=== PATIENT | female | born 1970 | race Caucasian/White ===

== ENCOUNTER → 2016-05-07 | Outpatient (CLI) | payer OTHER ==
--- NOTE | 2016-05-07 13:10 | US ---
EXAMINATION TYPE: US venous doppler duplex LE BI DATE OF EXAM: 05/07/2016 1:01 PM COMPARISON: NONE CLINICAL HISTORY: . Bilateral leg swelling that has since gone down, no h/o dvt SIDE PERFORMED: Bilateral VESSELS IMAGED: External Iliac Vein (EIV) Common Femoral Vein Deep Femoral Vein Greater Saphenous Vein * Femoral Vein Popliteal Vein Small Saphenous Vein * Proximal Calf Veins (* superficial vessels) Right Leg: Appears negative for DVT Left Leg: Appears negative for DVT
== END | disposition home or self-care (01) ==
LOC: RADUSWWP 12:07
PROVIDERS: ATTEND Family Medicine
DX: M79.669 Pain in unspecified lower leg (principal)
CPT/HCPCS: 93965; 93970

== ENCOUNTER → 2016-08-05 | Outpatient (CLI) | payer OTHER ==
--- NOTE | 2016-08-07 09:08 | MM ---
Reason for exam: screening (asymptomatic). Last mammogram was performed 1 year and 8 months ago. History: Patient history of other cancer. Family history of premenopausal breast cancer in maternal aunt at age 36. Benign cyst aspiration of the right breast, 2008. Physical Findings: A clinical breast exam by your physician is recommended on an annual basis and results should be correlated with mammographic findings. MG Screening Mammo w CAD Bilateral CC and MLO view(s) were taken. Prior study comparison: December 20, 2014, bilateral MG screening mammo w CAD. May 24, 2013, bilateral digital screening mammo w/CAD. The breast tissue is heterogeneously dense. This may lower the sensitivity of mammography. Finding: There are typically benign round, diffuse/scattered and grouped calcifications in both breasts. Increased density from priors. New mild skin thickening bilaterally. ASSESSMENT: Benign, BI-RAD 2 RECOMMENDATION: Routine screening mammogram of both breasts in 1 year. Manage patient on a clinical basis. Questionable new CHF. Increased density with mild skin thickening of both breasts, correlate clinically.
== END | disposition home or self-care (01) ==
LOC: RADMAMWWP 14:00
PROVIDERS: ATTEND Obstetrics & Gynecology
DX: Z12.31 Encounter for screening mammogram for malignant neoplasm of breast (principal)

== ENCOUNTER 2017-06-30 10:17 | Emergency (ER) | payer OTHER ==
--- NOTE | 2017-06-30 10:34 | ED ---
Lower Extremity Injury HPI - General Chief Complaint: Extremity Injury, Lower Stated Complaint: fall Time Seen by Provider: 06/30/17 10:25 Source: patient, RN notes reviewed Mode of arrival: wheelchair Limitations: no limitations - History of Present Illness Initial Comments: 46-year-old female presents emergency Department chief complaint of left ankle and left foot pain. Patient states that she tripped down 4 steps denies any head injury no loss conscious. Patient states she only injured her left foot and ankle. She states is swollen is painful to ambulate on. Denies any paresthesias. Patient states she's had a prior fracture to her right ankle and but no prior injuries to her left - Related Data Home Medications Medication Instructions Recorded Confirmed Clopidogrel Bisulfate [Plavix] 75 mg PO DAILY 01/21/15 06/30/17 Enalapril [Vasotec] 5 mg PO DAILY 01/21/15 06/30/17 Ergocalciferol (Vitamin D2) 50,000 unit PO Q14D 01/21/15 06/30/17 [Drisdol] Ferrous Sulfate [Iron (65 MG 325 mg PO DAILY 01/21/15 06/30/17 Elemental)] Furosemide [Lasix] 20 mg PO DAILY 01/21/15 06/30/17 Gabapentin [Neurontin] 400 mg PO BID 01/21/15 06/30/17 Loratadine [Claritin] 10 mg PO DAILY 01/21/15 06/30/17 Zolpidem Tartrate [Ambien] 5 mg PO HS 01/21/15 06/30/17 lamoTRIgine [LaMICtal] 25 mg PO BID 01/21/15 06/30/17 Carvedilol [Coreg] 6.25 mg PO BID 01/22/15 06/30/17 Albuterol Inhaler [Ventolin Hfa 1 - 2 puff INHALATION RT-Q6H PRN 06/30/17 Inhaler] Alogliptin Benzoate [Alogliptin] 6.25 mg PO DAILY 06/30/17 06/30/17 Atorvastatin [Lipitor] 80 mg PO HS 06/30/17 06/30/17 Citalopram Hydrobromide [CeleXA] 20 mg PO DAILY 06/30/17 06/30/17 Cyclobenzaprine [Flexeril] 5 mg PO TID PRN 06/30/17 06/30/17 Ezetimibe [Zetia] 10 mg PO DAILY 06/30/17 06/30/17 Famotidine [Pepcid] 20 mg PO DAILY 06/30/17 06/30/17 Hydrochlorothiazide [Hydrodiuril] 12.5 mg PO HS 06/30/17 06/30/17 Insulin Glargine,Hum.rec.anlog 10 unit SQ DAILY@1400 06/30/17 06/30/17 [Basaglar Kwikpen U-100] Pioglitazone [Actos] 15 mg PO DAILY 06/30/17 06/30/17 Repaglinide [Prandin] 0.5 mg PO AC-BID 06/30/17 06/30/17 Spironolactone [Aldactone] 25 mg PO DAILY 06/30/17 06/30/17 Tiotropium 18 Mcg/Puff [Spiriva] 1 cap INHALATION RT-DAILY 06/30/17 06/30/17 amLODIPine [Norvasc] 5 mg PO DAILY 06/30/17 06/30/17 Allergies Allergy/AdvReac Type Severity Reaction Status Date / Time Penicillins Allergy Rash/Hives Verified 06/30/17 10:46 Review of Systems ROS Statement: Those systems with pertinent positive or pertinent negative responses have been documented in the HPI. ROS Other: All systems not noted in ROS Statement are negative. Past Medical History Past Medical History: CVA/TIA, Diabetes Mellitus, Hypertension, Vascular Disorder Additional Past Medical History / Comment(s): vaginal bleeding for procedure today 01/22/2015 cancelled related to elevated blood sugar,hx of cellulitis History of Any Multi-Drug Resistant Organisms: None Reported Past Surgical History: Bowel Resection, Orthopedic Surgery, Tubal Ligation Additional Past Surgical History / Comment(s): Hx of colostomy and reversal, rotator cuff repair on Left,hx of bifem bypass Past Anesthesia/Blood Transfusion Reactions: No Reported Reaction Past Psychological History: No Psychological Hx Reported Smoking Status: Current every day smoker Past Alcohol Use History: None Reported Past Drug Use History: None Reported - Past Family History Mother Family Medical History: No Reported History Brother(s) Additional Family Medical History / Comment(s): CABG Sister(s) Family Medical History: CVA/TIA General Exam Limitations: no limitations General appearance: alert, in no apparent distress Head exam: Present: atraumatic, normocephalic, normal inspection Neck exam: Present: normal inspection, full ROM. Absent: tenderness Respiratory exam: Present: normal lung sounds bilaterally. Absent: respiratory distress, wheezes, rales, rhonchi, stridor Cardiovascular Exam: Present: regular rate, normal rhythm, normal heart sounds. Absent: systolic murmur, diastolic murmur, rubs, gallop, clicks Extremities exam: Present: other (Left ankle there is moderate swelling noted, tenderness over malleolus, no obvious deformity, there is mild tenderness across second third and fourth metatarsal with nausea deformity neurovascular intact there is no proximal tib-fib tenderness pulses are equal bilaterally) Skin exam: Present: warm, dry, intact, normal color. Absent: rash Course Vital Signs 06/30/17 10:22 Temperature 98.0 F Pulse Rate 70 Respiratory 20 Rate Blood Pressure 167/77 O2 Sat by Pulse 100 Oximetry - Reevaluation(s) Reevaluation #1: 06/30/17 11:16 Patient was offered pain meds on initial exam and declined she did decline after update on results also. Procedures - Orthopedic Splinting/Casting Injury #1 Side: left Lower Extremity Injury Location: short leg, ankle Lower Extremity Immobilizer: posterior splint, synthetic pre-padded splint Other Orthopedic Equipment: crutches Additional Comments: Neurovascular intact before and after procedure Medical Decision Making - Medical Decision Making 46-year-old female was on return for left ankle injury. There appears to be an avulsion fracture. Patient was splinted and follow with orthopedics. Patient was given prescription for crutches. Disposition Clinical Impression: Ankle fracture, left Disposition: HOME SELF-CARE Condition: Stable Instructions: Ankle Fracture (ED) Additional Instructions: Please return to the Emergency Department if symptoms worsen or any other concerns. Referrals: Siva Burnham MD [Primary Care Provider] - 1-2 days Mina Blanca MD [STAFF PHYSICIAN] - 1-2 days Time of Disposition: 11:15
--- NOTE | 2017-06-30 10:48 | XR ---
EXAMINATION TYPE: XR ankle complete LT, XR foot complete LT DATE OF EXAM: 06/30/2017 COMPARISON: NONE HISTORY: Pain TECHNIQUE: 3 views of the left ankle are submitted for evaluation. FINDINGS: Ankle mortise is intact. Lateral soft tissue swelling noted. Tiny ossific density adjacent to the talus or calcaneus on a single view could reflect a small avulsion fracture. Correlate clinica lly with point tenderness. Plantar and dorsal calcaneal spurring noted. IMPRESSION: 1. Tiny ossific density adjacent to the talus or calcaneus on a single view could reflect a small avu lsion fracture. Correlate clinically with point tenderness.
[2017-06-30 11:28] VITALS: BP 175/75; PULSE 74; RESP 16; TEMP 98.3
== END 2017-06-30 11:34 | disposition home or self-care (01) ==
LOC: EC 10:17
DX: S82.892A Other fracture of left lower leg, initial encounter for closed fracture (principal); I10 Essential (primary) hypertension; E11.9 Type 2 diabetes mellitus without complications; I73.9 Peripheral vascular disease, unspecified; F17.200 Nicotine dependence, unspecified, uncomplicated; Z79.02 Long term (current) use of antithrombotics/antiplatelets; Z79.4 Long term (current) use of insulin; Z79.899 Other long term (current) drug therapy; Z88.0 Allergy status to penicillin; Z86.73 Personal history of transient ischemic attack (TIA), and cerebral infarction without residual deficits; W10.9XXA Fall (on) (from) unspecified stairs and steps, initial encounter; Y92.009 Unspecified place in unspecified non-institutional (private) residence as the place of occurrence of the external cause
CPT/HCPCS: 29515; 99283

== ENCOUNTER → 2017-08-25 | Outpatient (CLI) | payer OTHER ==
[2017-08-25 12:23] VITALS: BP 133/73; PULSE 64; TEMP 97.5; BMI 26.7
--- NOTE | 2017-08-25 13:58 | P.HPOB ---
History of Present Illness H&P Date: 08/25/17 Chief Complaint: The patient is here for her routine gynecologic exam and mammogram. This is a 47-year-old with an LMP of 08/18/2017. The patient is status post tubal ligation. She states that has been about 5 years since her last pelvic exam. Her periods had been regular every month but she states they are becoming more frequent and can have 2 periods in a month. She previously saw Dr. Rodriguez who was going to do an endometrial ablation but this was canceled because of uncontrolled diabetes according to the patient. She states her menses are not as heavy as they used to be but they are coming more frequent. She denies hot flashes. She is otherwise without gynecologic complaints. Review of Systems Weight has been stable. She denies respiratory, cardiac, or G.I. problems. 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 She has had 3 vaginal deliveries in one miscarriage. History of Any Multi-Drug Resistant Organisms: None Reported Past Surgical History: Appendectomy, Bowel Resection, Orthopedic Surgery, Tubal Ligation Additional Past Surgical History / Comment(s): Hx of colostomy and reversal, rotator cuff repair on Left,hx of bifem bypass. Colonoscopy 2012 Past Anesthesia/Blood Transfusion Reactions: No Reported Reaction Past Psychological History: No Psychological Hx Reported Smoking Status: Heavy tobacco smoker (1 pack per day) Past Alcohol Use History: None Reported Past Drug Use History: None Reported Additional History: She is and has been with her boyfriend since 2017 and lives with him. She is currently unemployed. - Past Family History Mother Family Medical History: No Reported History, Congestive Heart Failure (CHF), Diabetes Mellitus Brother(s) Additional Family Medical History / Comment(s): CABG Sister(s) Family Medical History: CVA/TIA Additional Family Medical History / Comment(s): Maternal aunt had breast cancer. Medications and Allergies Home Medications Medication Instructions Recorded Confirmed Type Clopidogrel Bisulfate [Plavix] 75 mg PO DAILY 01/21/15 08/25/17 History Enalapril [Vasotec] 5 mg PO DAILY 01/21/15 08/25/17 History Ergocalciferol (Vitamin D2) 50,000 unit PO Q14D 01/21/15 08/25/17 History [Drisdol] Ferrous Sulfate [Iron (65 MG 325 mg PO DAILY 01/21/15 08/25/17 History Elemental)] Furosemide [Lasix] 20 mg PO DAILY 01/21/15 08/25/17 History Gabapentin [Neurontin] 400 mg PO BID 01/21/15 08/25/17 History Loratadine [Claritin] 10 mg PO DAILY 01/21/15 08/25/17 History Zolpidem Tartrate [Ambien] 5 mg PO HS 01/21/15 08/25/17 History lamoTRIgine [LaMICtal] 25 mg PO BID 01/21/15 08/25/17 History Carvedilol [Coreg] 6.25 mg PO BID 01/22/15 08/25/17 History Albuterol Inhaler [Ventolin Hfa 1 - 2 puff INHALATION RT-Q6H PRN 06/30/17 History Inhaler] Alogliptin Benzoate [Alogliptin] 6.25 mg PO DAILY 06/30/17 08/25/17 History Atorvastatin [Lipitor] 80 mg PO HS 06/30/17 08/25/17 History Citalopram Hydrobromide [CeleXA] 20 mg PO DAILY 06/30/17 08/25/17 History Cyclobenzaprine [Flexeril] 5 mg PO TID PRN 06/30/17 08/25/17 History Ezetimibe [Zetia] 10 mg PO DAILY 06/30/17 08/25/17 History Famotidine [Pepcid] 20 mg PO DAILY 06/30/17 08/25/17 History Hydrochlorothiazide [Hydrodiuril] 12.5 mg PO HS 06/30/17 08/25/17 History Insulin Glargine,Hum.rec.anlog 10 unit SQ DAILY@1400 06/30/17 08/25/17 History [Basaglar Kwikpen U-100] Pioglitazone [Actos] 15 mg PO DAILY 06/30/17 08/25/17 History Repaglinide [Prandin] 0.5 mg PO AC-BID PRN 06/30/17 08/25/17 History Spironolactone [Aldactone] 25 mg PO DAILY 06/30/17 08/25/17 History amLODIPine [Norvasc] 5 mg PO DAILY 06/30/17 08/25/17 History Allergies Allergy/AdvReac Type Severity Reaction Status Date / Time Penicillins Allergy Rash/Hives Verified 08/25/17 12:18 Exam - Vital Signs Vital signs: Vital Signs Temp Pulse BP 08/25/17 12:18 97.5 F L 64 133/73 Intake and Output 08/24/17 08/25/17 08/25/17 22:59 06:59 14:59 Other: Weight 70.76 kg Height 5'4", BMI 26.8. This is a well-developed well-nourished white female who is alert and oriented times 3 in no acute distress. HEENT: Within normal limits. NECK: Supple without mass or thyromegaly. CHEST AND LUNGS: mild prolonged expiration, otherwise clear to auscultation. HEART: Regular rate and rhythm. BREASTS: Are without mass or discharge. AXILLARY EXAM: Negative for adenopathy. BACK: Negative for CVA tenderness. ABDOMEN: Soft, nontender, without palpable masses. PELVIC EXAM: external genitalia reveals mild atrophy with a white raised lesion at the posterior aspect of the left labia. This measures approximately 1 x 0.5 x 0.5 cm. The lesion is soft and nontender. The whitish appearance extends just past the base of the raised lesion. Cervix and vagina appear normal with minimal atrophy. There is no unusual discharge. There is no evidence of prolapse. The uterus is midposition, nongravid size and nontender. There are no palpable adnexal masses or tenderness. RECTAL EXAM: negative for mass or tenderness and is negative for occult blood. EXTREMITIES: Nontender. IMPRESSION: 1. 47-year-old premenopausal female with increasing menstrual frequency about every 3 weeks. 2. Suspicious left vulvar lesion. 3. Multiple medical problems. PLAN: 1. Pap smear was performed. 2. Self breast awareness was discussed. 3. Screening mammogram will be done today. 4. The patient will be scheduled for a vulvar biopsy. I have stressed the importance of having this done and the possibility of cancerous or precancerous changes were also discussed. 5. The patient will keep a menstrual calendar and return if menses are more frequently than every 3 weeks. 6. Consider referral to Dr. Rodriguez if greater menstrual problems are if further treatment is needed for the vulvar lesion. 7. She'll return in one year and PRN
--- NOTE | 2017-08-26 09:44 | MM ---
Reason for exam: screening (asymptomatic). Last mammogram was performed 1 year and 1 month ago. History: Patient history of other cancer. Family history of premenopausal breast cancer in maternal aunt at age 36. Benign cyst aspiration of the right breast, 2008. Physical Findings: A clinical breast exam by your physician is recommended on an annual basis and results should be correlated with mammographic findings. MG Screening Mammo w CAD Bilateral CC and MLO view(s) were taken. Prior study comparison: August 05, 2016, bilateral MG screening mammo w CAD. December 20, 2014, bilateral MG screening mammo w CAD. There is a stable upper outer quadrant left mass. Benign calcifications bilaterally. No suspicious abnormality. No significant changes when compared with prior studies. ASSESSMENT: Benign, BI-RAD 2 RECOMMENDATION: Routine screening mammogram of both breasts in 1 year.
== END | disposition home or self-care (01) ==
LOC: WWCWWP 11:12
PROVIDERS: ATTEND Obstetrics & Gynecology
DX: Z12.31 Encounter for screening mammogram for malignant neoplasm of breast (principal)
CPT/HCPCS: 77067

== ENCOUNTER → 2018-06-13 | Outpatient (CLI) | payer OTHER ==
--- NOTE | 2018-06-13 15:28 | XR ---
EXAMINATION TYPE: XR chest 2V DATE OF EXAM: 06/13/2018 COMPARISON: 04/16/2011 INDICATION: Pneumonia, short of breath, cough TECHNIQUE: Frontal and lateral views of the chest are obtained. FINDINGS: The heart size is enlarged. The pulmonary vasculature is normal. Bibasilar infiltrates are present. Minimal bilateral pleural effusions are present.. IMPRESSION: 1. Bibasilar infiltrates and small bilateral pleural effusions. Correlate for bibasilar pneumonia. Fo llow-up is recommended.
== END ==
LOC: RADXRMAIN 12:54
PROVIDERS: ATTEND Family Medicine
DX: J90 Pleural effusion, not elsewhere classified (principal); R91.8 Other nonspecific abnormal finding of lung field
CPT/HCPCS: 71046

== ENCOUNTER 2018-06-18 19:40 | Inpatient (IN) | payer OTHER ==
[2018-06-18] MEDS ORDERED: ALBUTEROL NEBULIZED 2.5 MG/3 ML INHALATION STA (20:04)
[2018-06-18] MEDS ORDERED: IPRATROPIUM-ALBUTEROL 3 ML NEB INHALATION STA (20:04)
[2018-06-18] MEDS ORDERED: DEXAMETHASONE SOD PHOSPHATE 10 MG/ML 1 ML VIAL IV STA (20:04)
--- NOTE | 2018-06-18 20:07 | ED ---
General Adult HPI - General Chief complaint: Shortness of Breath Stated complaint: ALEENA Time Seen by Provider: 06/18/18 19:53 Source: patient, RN notes reviewed, old records reviewed Mode of arrival: ambulatory Limitations: no limitations - History of Present Illness Initial comments: 47-year-old female history of COPD presents with 5 days of worsening cough and dyspnea. She was diagnosed with pneumonia and started on antibiotic 4 days ago. She's had worsening cough which is nonproductive as well as right-sided chest pain worse with cough. She states this is typical of her COPD exacerbation. Denies fever or chills. No central chest pain. She does report left leg swelling which is chronic. No history DVT or PE. She does follow with pulmonology on a regular basis. She is currently smoking. - Related Data Home Medications Medication Instructions Recorded Confirmed Clopidogrel Bisulfate [Plavix] 75 mg PO DAILY 01/21/15 06/18/18 Ergocalciferol (Vitamin D2) 50,000 unit PO Q14D 01/21/15 06/18/18 [Drisdol] Ferrous Sulfate [Iron (65 MG 325 mg PO DAILY 01/21/15 06/18/18 Elemental)] Loratadine [Claritin] 10 mg PO DAILY 01/21/15 06/18/18 lamoTRIgine [LaMICtal] 25 mg PO BID 01/21/15 06/18/18 Carvedilol [Coreg] 12.5 mg PO BID 01/22/15 06/18/18 Albuterol Inhaler [Ventolin Hfa 1 - 2 puff INHALATION RT-Q6H PRN 06/30/17 Inhaler] Alogliptin Benzoate [Alogliptin] 6.25 mg PO DAILY 06/30/17 06/18/18 Atorvastatin [Lipitor] 80 mg PO HS 06/30/17 06/18/18 Citalopram Hydrobromide [CeleXA] 20 mg PO DAILY 06/30/17 06/18/18 Hydrochlorothiazide [Hydrodiuril] 12.5 mg PO BID 06/30/17 06/18/18 Insulin Glargine,Hum.rec.anlog 14 unit SQ DAILY@1400 06/30/17 06/18/18 [Justin Ash U-100] Spironolactone [Aldactone] 25 mg PO DAILY 06/30/17 06/18/18 Aspirin EC [Ecotrin Low Dose] 81 mg PO DAILY 06/18/18 06/18/18 Famotidine [Pepcid] 40 mg PO DAILY 06/18/18 06/18/18 Ipratropium-Albuterol Nebulize 3 ml INHALATION RT-BID 06/18/18 06/18/18 [Duoneb 0.5 mg-3 mg/3 ml Soln] Tiotropium [place] [Spiriva 2 spray INHALATION RT-DAILY 06/18/18 06/18/18 Respimat] amLODIPine [Norvasc] 10 mg PO DAILY 06/18/18 06/18/18 Allergies Allergy/AdvReac Type Severity Reaction Status Date / Time Penicillins Allergy Rash/Hives Verified 06/18/18 20:54 Review of Systems ROS Statement: Those systems with pertinent positive or pertinent negative responses have been documented in the HPI. ROS Other: All systems not noted in ROS Statement are negative. Past Medical History Past Medical History: COPD, CVA/TIA, Diabetes Mellitus, Hyperlipidemia, Hypertension, Renal Disease, Vascular Disorder Additional Past Medical History / Comment(s): Leukemia. History of Any Multi-Drug Resistant Organisms: None Reported Past Surgical History: Appendectomy, Bowel Resection, Orthopedic Surgery, Tubal Ligation Additional Past Surgical History / Comment(s): Hx of colostomy and reversal, rotator cuff repair on Left,hx of bifem bypass. Colonoscopy 2012 Past Anesthesia/Blood Transfusion Reactions: No Reported Reaction Past Psychological History: Anxiety, Depression Smoking Status: Heavy tobacco smoker Past Alcohol Use History: None Reported Past Drug Use History: Marijuana - Past Family History Mother Family Medical History: No Reported History, Congestive Heart Failure (CHF), Diabetes Mellitus Brother(s) Additional Family Medical History / Comment(s): CABG Sister(s) Family Medical History: CVA/TIA Additional Family Medical History / Comment(s): Maternal aunt had breast cancer. General Exam Limitations: no limitations General appearance: alert, in no apparent distress Head exam: Present: atraumatic, normocephalic Eye exam: Present: normal appearance, PERRL, EOMI ENT exam: Present: normal exam Respiratory exam: Present: respiratory distress, wheezes, decreased breath sounds Cardiovascular Exam: Present: regular rate, normal rhythm GI/Abdominal exam: Present: soft. Absent: distended, tenderness, guarding Extremities exam: Present: pedal edema (edema worse on the left) Neurological exam: Present: alert, oriented X3 Psychiatric exam: Present: normal affect, normal mood Skin exam: Present: warm, dry, intact. Absent: cyanosis, diaphoretic Course Vital Signs 06/18/18 06/18/18 06/18/18 19:47 20:31 20:50 Temperature 98.5 F Pulse Rate 105 H 80 82 Respiratory 20 Rate Blood Pressure 172/75 O2 Sat by Pulse 92 L Oximetry EKG Findings - EKG Comments: EKG Findings:: EKG: Normal sinus rhythm, low voltage QRS, ventricular rate of 98 , MS interval 172, QRS duration 84, QTC 457 T-wave inversion in V6. Medical Decision Making - Medical Decision Making 47-year-old female history of COPD, currently smoking, history of chronic kidney disease, the following nephrology presenting with 3 days of worsening cough and dyspnea. Patient appears fluid overloaded with bilateral rales and wheezing on auscultation. Chest x-ray obtained, does show concern for bilateral infiltrate and pulmonary edema. Patient has normal white blood cell count 9.3, hemoglobin is 8.9 with no baseline for comparison. Creatinine 1.99 most recent in the system is 1.2, patient does report stage IV chronic kidney disease. Troponin negative, BNP significantly elevated at 6890 consistent with fluid overload. Influenza negative. Patient given steroids, albuterol, Atrovent, Lasix, and Levaquin in the emergency department. Will be admitted for further treatment and evaluation. Case discussed with Dr. Costa, we will admit. Diagnosis: COPD, fluid overload, pneumonia failed outpatient treatment - Lab Data Result diagrams: 06/18/18 20:06 06/18/18 20:06 Lab Results 06/18/18 06/18/18 06/18/18 Range/Units 20:06 20:06 20:06 WBC 9.3 (3.8-10.6) k/uL RBC 2.80 L (3.80-5.40) m/uL Hgb 8.9 L (11.4-16.0) gm/dL Hct 26.9 L (34.0-46.0) % MCV 95.9 (80.0-100.0) fL MCH 31.8 (25.0-35.0) pg MCHC 33.2 (31.0-37.0) g/dL RDW 14.6 (11.5-15.5) % Plt Count 279 (150-450) k/uL Neutrophils % 82 % Lymphocytes % 9 % Monocytes % 5 % Eosinophils % 4 % Basophils % 1 % Neutrophils # 7.6 (1.3-7.7) k/uL Lymphocytes # 0.8 L (1.0-4.8) k/uL Monocytes # 0.5 (0-1.0) k/uL Eosinophils # 0.3 (0-0.7) k/uL Basophils # 0.1 (0-0.2) k/uL PT (9.0-12.0) sec INR (<1.2) APTT (22.0-30.0) sec Sodium 138 (137-145) mmol/L Potassium 5.3 H (3.5-5.1) mmol/L Chloride 114 H (98-107) mmol/L Carbon Dioxide 18 L (22-30) mmol/L Anion Gap 6 mmol/L BUN 22 H (7-17) mg/dL Creatinine 1.99 H (0.52-1.04) mg/dL Est GFR (CKD-EPI)AfAm 34 (>60 ml/min/1.73 sqM) Est GFR (CKD-EPI)NonAf 29 (>60 ml/min/1.73 sqM) Glucose 302 H (74-99) mg/dL Plasma Lactic Acid Tres (0.7-2.0) mmol/L Calcium 8.4 (8.4-10.2) mg/dL Magnesium 2.0 (1.6-2.3) mg/dL Total Bilirubin 0.5 (0.2-1.3) mg/dL AST 17 (14-36) U/L ALT 37 (9-52) U/L Alkaline Phosphatase 112 (38-126) U/L Total Creatine Kinase 63 (30-135) U/L CK-MB (CK-2) 0.9 (0.0-2.4) ng/mL CK-MB (CK-2) Rel Index 1.4 Troponin I <0.012 (0.000-0.034) ng/mL NT-Pro-B Natriuret Pep pg/mL Total Protein 5.7 L (6.3-8.2) g/dL Albumin 3.1 L (3.5-5.0) g/dL Influenza Type A RNA (Not Detectd) Influenza Type B (PCR) (Not Detectd) 06/18/18 06/18/18 06/18/18 Range/Units 20:06 20:06 20:06 WBC (3.8-10.6) k/uL RBC (3.80-5.40) m/uL Hgb (11.4-16.0) gm/dL Hct (34.0-46.0) % MCV (80.0-100.0) fL MCH (25.0-35.0) pg MCHC (31.0-37.0) g/dL RDW (11.5-15.5) % Plt Count (150-450) k/uL Neutrophils % % Lymphocytes % % Monocytes % % Eosinophils % % Basophils % % Neutrophils # (1.3-7.7) k/uL Lymphocytes # (1.0-4.8) k/uL Monocytes # (0-1.0) k/uL Eosinophils # (0-0.7) k/uL Basophils # (0-0.2) k/uL PT 10.7 (9.0-12.0) sec INR 1.0 (<1.2) APTT 25.4 (22.0-30.0) sec Sodium (137-145) mmol/L Potassium (3.5-5.1) mmol/L Chloride (98-107) mmol/L Carbon Dioxide (22-30) mmol/L Anion Gap mmol/L BUN (7-17) mg/dL Creatinine (0.52-1.04) mg/dL Est GFR (CKD-EPI)AfAm (>60 ml/min/1.73 sqM) Est GFR (CKD-EPI)NonAf (>60 ml/min/1.73 sqM) Glucose (74-99) mg/dL Plasma Lactic Acid Tres 1.2 (0.7-2.0) mmol/L Calcium (8.4-10.2) mg/dL Magnesium (1.6-2.3) mg/dL Total Bilirubin (0.2-1.3) mg/dL AST (14-36) U/L ALT (9-52) U/L Alkaline Phosphatase (38-126) U/L Total Creatine Kinase (30-135) U/L CK-MB (CK-2) (0.0-2.4) ng/mL CK-MB (CK-2) Rel Index Troponin I (0.000-0.034) ng/mL NT-Pro-B Natriuret Pep 6890 pg/mL Total Protein (6.3-8.2) g/dL Albumin (3.5-5.0) g/dL Influenza Type A RNA (Not Detectd) Influenza Type B (PCR) (Not Detectd) 06/18/18 Range/Units 20:14 WBC (3.8-10.6) k/uL RBC (3.80-5.40) m/uL Hgb (11.4-16.0) gm/dL Hct (34.0-46.0) % MCV (80.0-100.0) fL MCH (25.0-35.0) pg MCHC (31.0-37.0) g/dL RDW (11.5-15.5) % Plt Count (150-450) k/uL Neutrophils % % Lymphocytes % % Monocytes % % Eosinophils % % Basophils % % Neutrophils # (1.3-7.7) k/uL Lymphocytes # (1.0-4.8) k/uL Monocytes # (0-1.0) k/uL Eosinophils # (0-0.7) k/uL Basophils # (0-0.2) k/uL PT (9.0-12.0) sec INR (<1.2) APTT (22.0-30.0) sec Sodium (137-145) mmol/L Potassium (3.5-5.1) mmol/L Chloride (98-107) mmol/L Carbon Dioxide (22-30) mmol/L Anion Gap mmol/L BUN (7-17) mg/dL Creatinine (0.52-1.04) mg/dL Est GFR (CKD-EPI)AfAm (>60 ml/min/1.73 sqM) Est GFR (CKD-EPI)NonAf (>60 ml/min/1.73 sqM) Glucose (74-99) mg/dL Plasma Lactic Acid Tres (0.7-2.0) mmol/L Calcium (8.4-10.2) mg/dL Magnesium (1.6-2.3) mg/dL Total Bilirubin (0.2-1.3) mg/dL AST (14-36) U/L ALT (9-52) U/L Alkaline Phosphatase (38-126) U/L Total Creatine Kinase (30-135) U/L CK-MB (CK-2) (0.0-2.4) ng/mL CK-MB (CK-2) Rel Index Troponin I (0.000-0.034) ng/mL NT-Pro-B Natriuret Pep pg/mL Total Protein (6.3-8.2) g/dL Albumin (3.5-5.0) g/dL Influenza Type A RNA Not Detected (Not Detectd) Influenza Type B (PCR) Not Detected (Not Detectd) Disposition Clinical Impression: Acute exacerbation of chronic obstructive airways disease, Fluid overload, Pneumonia Disposition: ADMITTED IP TO THIS [facility] Condition: Stable Is patient prescribed a controlled substance at d/c from ED?: No Referrals: Tamika Pratt MD [Primary Care Provider] - 1-2 days Decision to Admit Reason: Admit from EC Decision Date: 06/18/18 Decision Time: 21:58
[2018-06-18 20:27] LABS: Basophils # (A) 0.1 k/uL (0-0.2); Basophils % (A) 1 %; Eosinophils # (A) 0.3 k/uL (0-0.7); Eosinophils % (A) 4 %; HCT 26.9 % (34.0-46.0); HGB 8.9 gm/dL (11.4-16.0); Lymphocytes # (A) 0.8 k/uL (1.0-4.8); Lymphocytes % (A) 9 %; MCH 31.8 pg (25.0-35.0); MCHC 33.2 g/dL (31.0-37.0); MCV 95.9 fL (80.0-100.0); Mean Platelet Volume 8.2; Monocytes # (A) 0.5 k/uL (0-1.0); Monocytes % (A) 5 %; Neutrophils # (A) 7.6 k/uL (1.3-7.7); Neutrophils % (A) 82 %; Platelet Count 279 k/uL (150-450); RDW 14.6 % (11.5-15.5); WBC 9.3 k/uL (3.8-10.6)
[2018-06-18 20:35] LABS: Partial Thromboplastin Time 25.4 sec (22.0-30.0); Prothrombin Time 10.7 sec (9.0-12.0)
[2018-06-18 20:36] LABS: Albumin 3.1 g/dL (3.5-5.0); Calcium 8.4 mg/dL (8.4-10.2); Potassium 5.3 mmol/L (3.5-5.1); Total Bilirubin 0.5 mg/dL (0.2-1.3); Total Protein 5.7 g/dL (6.3-8.2)
[2018-06-18 20:45] LABS: Creatine Kinase 63 U/L (30-135)
[2018-06-18 20:58] LABS: Creatine Kinase MB 0.9 ng/mL (0.0-2.4); Troponin I <0.012 ng/mL (0.000-0.034)
--- NOTE | 2018-06-18 21:04 | XR ---
EXAMINATION TYPE: XR chest 2V DATE OF EXAM: 06/18/2018 COMPARISON: 06/13/2018 HISTORY: Short of breath TECHNIQUE: Frontal and lateral views of the chest are obtained. FINDINGS: There is blunting of the costophrenic angles. There is pulmonary congestion. Heart size is normal. There is some infiltrate in both lower lobes. There are chest leads. IMPRESSION: Pleural fluid with basilar pulmonary infiltrates and atelectasis. This is slightly worse than last exam. Normal heart. Heart failure is possible...
[2018-06-18] MEDS ORDERED: LEVOFLOXACIN 500MG-D5W PMX 500 MG in DEXTROSE/WATER 1 100ML.BAG IVPB STA (21:18)
[2018-06-18] MEDS ORDERED: FUROSEMIDE 10 MG/ML 4 ML VIAL IV STA (21:19)
--- NOTE | 2018-06-18 21:36 | US ---
EXAMINATION TYPE: US venous doppler duplex LE LT DATE OF EXAM: 06/18/2018 9:27 PM COMPARISON: CLINICAL HISTORY: Pain. left leg swelling. No redness. On plavix and aspirin. No hx of blood clots. Shortness of breath. SIDE PERFORMED: Left TECHNIQUE: The lower extremity deep venous system is examined utilizing real time linear array sonog hillary with graded compression, doppler sonography and color-flow sonography. VESSELS IMAGED: External Iliac Vein (EIV) Common Femoral Vein Deep Femoral Vein Greater Saphenous Vein * Femoral Vein Popliteal Vein Small Saphenous Vein * Proximal Calf Veins (* superficial vessels) Left Leg: Negative for DVT IMPRESSION: No evidence of deep venous thrombosis in the left leg.
[2018-06-18] MEDS ORDERED: IPRATROPIUM-ALBUTEROL 3 ML NEB INHALATION PRN (21:53)
[2018-06-18] MEDS ORDERED: MORPHINE SULFATE 4 MG/0.8 ML SYRINGE (INJ) IVP STA (21:55)
[2018-06-18] MEDS ORDERED: MORPHINE SULFATE 4 MG/ML SYRINGE IVP STA (22:01)
[2018-06-18] MEDS ORDERED: traMADol 50 MG TAB PO STA (22:47)
[2018-06-19 01:07] LABS: Glucose,Whole Blood 356 mg/dL (75-99)
[2018-06-19] MEDS ORDERED: LEVOFLOXACIN 500 MG TAB PO SCH (04:15)
--- NOTE | 2018-06-19 04:16 | P.HPIM ---
History of Present Illness H&P Date: 06/19/18 Patient is a 47-year-old female with a PMH of COPD, active smoker, CHF, hypertension, diabetes mellitus, hyperlipidemia, and history of CVA presented to the ED for gradually worsening shortness of breath. Shortness of breath had worsened over the past 2 or 3 days, with orthopnea, PND, wheezing, chills, and lower extremity edema. 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 She otherwise denied fevers, nausea, vomiting, diarrhea, abdominal pain, recent travel, calf pain, or sick contacts. In the ED, the patient underwent a copperheads of workup, with hemoglobin 8.9, potassium 5.3, BUN 22, creatinine 1.99, BNP 6890, and troponin less than 0.012. Chest x-ray revealed pleural fluid with basilar pulmonary infiltrate. Lower extremity duplex was negative for DVT. The patient was thereby admitted to the medicine service for multifactorial shortness of breath. Review of Systems Pertinent positives and negatives as discussed in HPI, a complete review of systems was performed and all other systems are negative. Past Medical History Past Medical History: COPD, CVA/TIA, Diabetes Mellitus, Hyperlipidemia, Hypertension, Renal Disease, Vascular Disorder Additional Past Medical History / Comment(s): Leukemia. History of Any Multi-Drug Resistant Organisms: None Reported Past Surgical History: Appendectomy, Bowel Resection, Orthopedic Surgery, Tubal Ligation Additional Past Surgical History / Comment(s): Hx of colostomy and reversal, rotator cuff repair on Left,hx of bifem bypass. Colonoscopy 2012 Past Anesthesia/Blood Transfusion Reactions: No Reported Reaction Past Psychological History: Anxiety, Depression Smoking Status: Heavy tobacco smoker Past Alcohol Use History: None Reported Past Drug Use History: Marijuana - Past Family History Mother Family Medical History: No Reported History, Congestive Heart Failure (CHF), Diabetes Mellitus Brother(s) Additional Family Medical History / Comment(s): CABG Sister(s) Family Medical History: CVA/TIA Additional Family Medical History / Comment(s): Maternal aunt had breast cancer. Medications and Allergies Home Medications Medication Instructions Recorded Confirmed Type Clopidogrel Bisulfate [Plavix] 75 mg PO DAILY 01/21/15 06/18/18 History Ergocalciferol (Vitamin D2) 50,000 unit PO Q14D 01/21/15 06/18/18 History [Drisdol] Ferrous Sulfate [Iron (65 MG 325 mg PO DAILY 01/21/15 06/18/18 History Elemental)] Loratadine [Claritin] 10 mg PO DAILY 01/21/15 06/18/18 History lamoTRIgine [LaMICtal] 25 mg PO BID 01/21/15 06/18/18 History Carvedilol [Coreg] 12.5 mg PO BID 01/22/15 06/18/18 History Albuterol Inhaler [Ventolin Hfa 1 - 2 puff INHALATION RT-Q6H PRN 06/30/17 History Inhaler] Alogliptin Benzoate [Alogliptin] 6.25 mg PO DAILY 06/30/17 06/18/18 History Atorvastatin [Lipitor] 80 mg PO HS 06/30/17 06/18/18 History Citalopram Hydrobromide [CeleXA] 20 mg PO DAILY 06/30/17 06/18/18 History Hydrochlorothiazide [Hydrodiuril] 12.5 mg PO BID 06/30/17 06/18/18 History Insulin Glargine,Hum.rec.anlog 14 unit SQ DAILY@1400 06/30/17 06/18/18 History [Mak[place] Alinapen U-100] Spironolactone [Aldactone] 25 mg PO DAILY 06/30/17 06/18/18 History Aspirin EC [Ecotrin Low Dose] 81 mg PO DAILY 06/18/18 06/18/18 History Famotidine [Pepcid] 40 mg PO DAILY 06/18/18 06/18/18 History Ipratropium-Albuterol Nebulize 3 ml INHALATION RT-BID 06/18/18 06/18/18 History [Duoneb 0.5 mg-3 mg/3 ml Soln] Tiotropium [place] [Spiriva 2 spray INHALATION RT-DAILY 06/18/18 06/18/18 History Respimat] amLODIPine [Norvasc] 10 mg PO DAILY 06/18/18 06/18/18 History Azithromycin [Zithromax] 500 mg PO DAILY 06/19/18 06/19/18 History Allergies Allergy/AdvReac Type Severity Reaction Status Date / Time bee venom protein (honey bee) Allergy Rash/Hives Verified 06/19/18 00:17 Penicillins Allergy Rash/Hives Verified 06/18/18 20:54 Physical Exam Vitals: Vital Signs Temp Pulse Pulse Resp BP BP Pulse Ox 06/18/18 23:55 98.3 F 90 18 110/66 96 06/18/18 23:30 78 13 100/69 95 06/18/18 23:00 80 17 106/72 95 06/18/18 22:00 80 20 103/71 98 06/18/18 21:00 80 21 103/73 97 06/18/18 20:50 82 06/18/18 20:31 80 06/18/18 20:30 82 20 103/66 97 06/18/18 19:47 98.5 F 105 H 20 172/75 92 L Intake and Output 06/18/18 06/18/18 06/19/18 14:59 22:59 06:59 Other: Weight 70.307 kg General: non toxic, no distress, appears older than age, normal weight Derm: no unusual rashes/lesions no unusual ecchymoses, warm, dry Head: atraumatic, normocephalic, symmetric Eyes: EOMI, no lid lag, anicteric sclera, pupils equal round reactive to light ENT: Nose and ears atraumatic, no thrush, no pharyngeal erythema Neck: No thyromegaly, no cervical lymphadenopathy, trachea midline, supple Mouth: no lip lesion, mucus membranes moist Cardiovascular: S1S2 reg, no murmur, positive posterior tibial pulse bilateral, 1+ LE edema chavez, capillary refill less than 2 seconds Lungs: Bibasilar rales, poor air entry bilaterally, scattered rhonchi, no accessory muscle use Abdominal: soft, nontender to palpation, no guarding, no appreciable organomegaly, normal bowel sounds Ext: no gross muscle atrophy, muscle strength 5 out of 5 in all 4 extremities grossly, no contractures, Neuro: CN II-XI grossly intact, light touch intact all 4 extremities, finger to nose within normal limits, Psych: Alert, oriented, appropriate affect Results CBC & Chem 7: 06/18/18 20:06 06/18/18 20:06 Labs: Abnormal Lab Results - Last 24 Hours (Table) 02/16/19 02/16/19 02/17/19 Range/Units 20:06 20:06 01:04 RBC 2.80 L (3.80-5.40) m/uL Hgb 8.9 L (11.4-16.0) gm/dL Hct 26.9 L (34.0-46.0) % Lymphocytes # 0.8 L (1.0-4.8) k/uL Potassium 5.3 H (3.5-5.1) mmol/L Chloride 114 H (98-107) mmol/L Carbon Dioxide 18 L (22-30) mmol/L BUN 22 H (7-17) mg/dL Creatinine 1.99 H (0.52-1.04) mg/dL Glucose 302 H (74-99) mg/dL POC Glucose (mg/dL) 356 H (75-99) mg/dL Total Protein 5.7 L (6.3-8.2) g/dL Albumin 3.1 L (3.5-5.0) g/dL Thrombosis Risk Factor Assmnt - Choose All That Apply Any of the Below Risk Factors Present?: Yes Each Factor Represents 1 point: Abnormal pulmonary function (COPD), Age 41-60 years Other Risk Factors: No Other congenital or acquired thrombophilia - If yes, enter type in comment: No Thrombosis Risk Factor Assessment Total Risk Factor Score: 2 Thrombosis Risk Factor Assessment Level: Low Risk Assessment and Plan Plan: Shortness of breath, multifactorial, secondary to acute COPD and CHF exacerbations, along with community acquired pneumonia -Continue with Lasix 40 mg IV every 12 hourly -Cardiology consult -Cardiac monitoring -Echocardiogram -Continue with Solu-Medrol 60 mg every 6 hourly -Continue with DuoNeb's -Levaquin NED on CKD -Monitor BMP -Avoid nephrotoxic agents Hyperkalemia -Administer Kayexalate and monitor DM -JOSE MANUEL with FS HTN; HLD -Will resume home meds upon confirmation DVT//GI prophylaxis -Heparin -Protonix The patient is admitted with an anticipated greater than 2 midnight stay for evaluation of SOB CODE STATUS:Full Code Discussed with: Patient Anticipated discharge date: 06/21/[address]: Home A total of 60 minutes was spent on the care of this complex patient more than 50 % of the time was spent in counseling and care coordination.
[2018-06-19] MEDS: methylPREDNISolone SOD SUCCI 125 MG/2 ML VIAL IV SCH ×3 (04:39→12:29)
[2018-06-19] MEDS: SODIUM POLYSTYRENE SULFONATE 15 GM/60 ML BOTTLE PO STA ×2 (06:35→06:46)
[2018-06-19 07:25] LABS: Glucose,Whole Blood 488 mg/dL (75-99)
[2018-06-19] MEDS: IPRATROPIUM-ALBUTEROL 3 ML NEB INHALATION SCH ×4 (07:47→19:39)
[2018-06-19] MEDS: PANTOPRAZOLE 40 MG TABLET PO SCH (08:04)
[2018-06-19] MEDS: HEPARIN SODIUM,PORCINE 5,000 UNIT/ML 1 ML VIAL SQ SCH ×3 (08:04→23:26)
[2018-06-19] MEDS: INSULIN ASPART (NovoLOG) 100 UNIT/ML VIAL SQ SCH ×4 (08:04→21:50)
[2018-06-19] MEDS ORDERED: FUROSEMIDE 10 MG/ML 4 ML VIAL IV SCH ×2 (09:00→21:00)
[2018-06-19 10:04] LABS: HCT 27.3 % (34.0-46.0); HGB 8.6 gm/dL (11.4-16.0); Hypochromasia Slight; MCH 31.5 pg (25.0-35.0); MCHC 31.5 g/dL (31.0-37.0); Macrocytosis Slight; Mean Platelet Volume 8.3; Platelet Count 290 k/uL (150-450); RBC 2.73 m/uL (3.80-5.40); RDW 14.5 % (11.5-15.5)
[2018-06-19 10:17] LABS: Calcium 8.2 mg/dL (8.4-10.2)
[2018-06-19 12:04] LABS: Glucose,Whole Blood 465 mg/dL (75-99)
[2018-06-19] MEDS ORDERED: INSULIN ASPART (NovoLOG) 100 UNIT/ML VIAL SQ ONE ×2 (12:06→17:38)
[2018-06-19] MEDS: NICOTINE 21MG/24HR PATCH TRANSDERM SCH (12:28)
[2018-06-19] MEDS: INSULIN DETEMIR (LEVEMIR) 100 UNIT/ML SYR SQ SCH (12:33)
--- NOTE | 2018-06-19 14:30 | P.PN ---
Subjective Progress Note Date: 06/19/18 Principal diagnosis: Shortness of breath Patient is a 47-year-old female with a past medical history of COPD, active tobacco abuse, congestive heart failure, hypertension, diabetes, dyslipidemia, and prior stroke who presented to the emergency department for gradual worsening shortness of breath. Her shortness of breath had been increasing for the last 2 weeks. She has been following with nephrology for worsening creatinine. They apparently decreased her Lasix and increase her hydrochlorothiazide dose. Since that point in time her edema had been increasing. In the emergency department she underwent an extensive evaluation. On initial evaluation she was hypertensive with a blood pressure 172/75. It improved with treatment of her shortness of breath but without specific intervention. Initial laboratory analysis showed a hemoglobin 8.9, potassium 5.3, carbon dioxide of 18, P1 22, and creatinine 1.99. Her blood sugar was elevated at 302. Chest x-ray showed basilar pulmonary infiltrate and lower extremity duplex was negative for left lower extremity DVT. She was started on diuretics and bronchodilators. She was admitted for further monitoring. Her blood sugar became elevated as her long-acting insulin had initially been held and she was started on steroids. By the morning after admission her breathing had improved significantly however her creatinine raised to 2.22. Patient seen and examined at bedside with family present. She states that her breathing is much improved today, she does have a slight cough which is nonproductive. She is not having any wheezing. She thinks that her edema is slightly worse than normal but has improved somewhat yesterday. She tells me she is seeing the nurse practitioner Dr. Montelongo's office has been adjusting her medications recently. She denies any nausea, vomiting, or diarrhea. Objective - Vital Signs Vital signs: Vital Signs Temp 98.4 F 06/19/18 06:07 Pulse 91 06/19/18 12:16 Resp 18 06/19/18 08:00 BP 137/63 06/19/18 06:07 Pulse Ox 98 06/19/18 07:49 Intake & Output 06/18/18 06/19/18 06/19/18 18:59 06:59 18:59 Weight 70.307 kg Other: Voiding Method Toilet # Voids 3 - Exam General: ill Appearing, no distress, appears older than stated age Derm: warm, dry Head: atraumatic, normocephalic, symmetric Eyes: EOMI, no lid lag, anicteric sclera Mouth: no lip lesion, mucus membranes moist Cardiovascular: S1S2 reg, no murmur, positive posterior tibial pulse bilateral, Lungs: decresed bs bilateral, no rhonchi, no rales , no accessory muscle use Abdominal: soft, nontender to palpation, no guarding, no appreciable organomegaly Ext: no gross muscle atrophy, trace edema right foot, 1+ edema left foot, no contractures Neuro: CN II-XI grossly intact, no focal neuro deficits Psych: Alert, oriented, appropriate affect - Labs CBC & Chem 7: 06/19/18 09:42 06/19/18 09:42 Labs: Abnormal Lab Results - Last 24 Hours (Table) 06/18/18 06/18/18 06/19/18 Range/Units 20:06 20:06 01:04 WBC (3.8-10.6) k/uL RBC 2.80 L (3.80-5.40) m/uL Hgb 8.9 L (11.4-16.0) gm/dL Hct 26.9 L (34.0-46.0) % Lymphocytes # 0.8 L (1.0-4.8) k/uL Sodium (137-145) mmol/L Potassium 5.3 H (3.5-5.1) mmol/L Chloride 114 H (98-107) mmol/L Carbon Dioxide 18 L (22-30) mmol/L BUN 22 H (7-17) mg/dL Creatinine 1.99 H (0.52-1.04) mg/dL Glucose 302 H (74-99) mg/dL POC Glucose (mg/dL) 356 H (75-99) mg/dL Calcium (8.4-10.2) mg/dL Total Protein 5.7 L (6.3-8.2) g/dL Albumin 3.1 L (3.5-5.0) g/dL 06/19/18 06/19/18 06/19/18 Range/Units 07:03 09:42 09:42 WBC 15.0 H (3.8-10.6) k/uL RBC 2.73 L (3.80-5.40) m/uL Hgb 8.6 L (11.4-16.0) gm/dL Hct 27.3 L (34.0-46.0) % Lymphocytes # (1.0-4.8) k/uL Sodium 135 L (137-145) mmol/L Potassium (3.5-5.1) mmol/L Chloride (98-107) mmol/L Carbon Dioxide 18 L (22-30) mmol/L BUN 25 H (7-17) mg/dL Creatinine 2.22 H (0.52-1.04) mg/dL Glucose 446 H (74-99) mg/dL POC Glucose (mg/dL) 488 H (75-99) mg/dL Calcium 8.2 L (8.4-10.2) mg/dL Total Protein (6.3-8.2) g/dL Albumin (3.5-5.0) g/dL 06/19/18 Range/Units 11:47 WBC (3.8-10.6) k/uL RBC (3.80-5.40) m/uL Hgb (11.4-16.0) gm/dL Hct (34.0-46.0) % Lymphocytes # (1.0-4.8) k/uL Sodium (137-145) mmol/L Potassium (3.5-5.1) mmol/L Chloride (98-107) mmol/L Carbon Dioxide (22-30) mmol/L BUN (7-17) mg/dL Creatinine (0.52-1.04) mg/dL Glucose (74-99) mg/dL POC Glucose (mg/dL) 465 H (75-99) mg/dL Calcium (8.4-10.2) mg/dL Total Protein (6.3-8.2) g/dL Albumin (3.5-5.0) g/dL Assessment and Plan Assessment: Acute exaerbation of COPD with acute bronchitis - levaquin - change steroids to prednisone - bronchodilators - pum hygeine Acute fluid overload - check echo, fluid restriction - stop lasix and aldactone with increased Cr NED on CKD - consult nephro - hold lasix and aldactone - fluid restriction - avoid additional nephrotoxic agents - follow Cr in AM DM 2 with hyperglycemia - resume long acting insulin, novolo 20 unit now then continue SSI - Follow BS - A1C pending HTN, controlled - resume norvasc - follow BP Tobacco ause - cessation - nicotine replacement HLD - statin PAD - plavix and statin Hyperkalemia, resolved DVT prophylaxis: Heparin Discussed with: Patient, family, nursing Anticipated discharge: 2-[address]: home A total of [35] minutes was spent on the care of this complex patient more than 50% of the time was spent in counseling and care coordination.
[2018-06-19] MEDS: hydrALAZINE HCL 25 MG TAB PO SCH ×2 (16:37→21:50)
[2018-06-19] MEDS: ACETAMINOPHEN TAB 325 MG TAB PO PRN (16:56)
[2018-06-19 17:05] LABS: Glucose,Whole Blood 448 mg/dL (75-99)
[2018-06-19 20:42] LABS: Glucose,Whole Blood 285 mg/dL (75-99)
[2018-06-19] MEDS: lamoTRIgine 25 MG TAB PO SCH (21:50)
[2018-06-19] MEDS: ATORVASTATIN 80 MG TAB PO SCH (21:50)
[2018-06-19] MEDS: LEVOFLOXACIN 250 MG TAB PO SCH (22:00)
[2018-06-20] MEDS ORDERED: ALBUTEROL NEBULIZED 2.5 MG/3 ML INHALATION PRN (05:15)
[2018-06-20] MEDS: IPRATROPIUM-ALBUTEROL 3 ML NEB INHALATION SCH ×5 (05:17→20:29)
[2018-06-20 05:48] LABS: Glucose,Whole Blood 261 mg/dL (75-99)
[2018-06-20] MEDS: INSULIN ASPART (NovoLOG) 100 UNIT/ML VIAL SQ SCH ×5 (06:56→21:51)
[2018-06-20] MEDS: PANTOPRAZOLE 40 MG TABLET PO SCH (06:56)
[2018-06-20] MEDS ORDERED: INSULIN ASPART (NovoLOG) 100 UNIT/ML VIAL SQ SCH ×2 (07:30→12:30)
[2018-06-20] MEDS: INSULIN DETEMIR (LEVEMIR) 100 UNIT/ML SYR SQ SCH (08:59)
[2018-06-20] MEDS: FAMOTIDINE 20 MG TAB PO SCH (09:00)
[2018-06-20] MEDS: HEPARIN SODIUM,PORCINE 5,000 UNIT/ML 1 ML VIAL SQ SCH ×3 (09:00→21:50)
[2018-06-20] MEDS: hydrALAZINE HCL 25 MG TAB PO SCH ×2 (09:01→15:44)
[2018-06-20] MEDS: CITALOPRAM HYDROBROMIDE 20 MG TAB PO SCH (09:02)
[2018-06-20] MEDS: amLODIPine 10 MG TAB PO SCH (09:02)
[2018-06-20] MEDS: predniSONE 20 MG TAB PO SCH (09:02)
[2018-06-20] MEDS: ASPIRIN 81 MG PO SCH (09:02)
[2018-06-20] MEDS: CLOPIDOGREL 75 MG TAB PO SCH (09:02)
[2018-06-20] MEDS: lamoTRIgine 25 MG TAB PO SCH ×2 (09:03→21:50)
[2018-06-20] MEDS: ISOSORBIDE MONONITRATE ER 60 MG TAB.ER.24H PO SCH (09:03)
[2018-06-20] MEDS: LORATADINE 10 MG TAB PO SCH (09:03)
[2018-06-20] MEDS: FERROUS SULFATE 325 MG TAB PO SCH (09:03)
[2018-06-20] MEDS: ACETAMINOPHEN TAB 325 MG TAB PO PRN ×2 (09:03→21:50)
[2018-06-20] MEDS: NICOTINE 21MG/24HR PATCH TRANSDERM SCH (09:06)
[2018-06-20 09:29] LABS: HCT 26.5 % (34.0-46.0); HGB 8.7 gm/dL (11.4-16.0); MCH 32.5 pg (25.0-35.0); MCV 98.7 fL (80.0-100.0); Macrocytosis Slight; Mean Platelet Volume 7.6; Platelet Count 297 k/uL (150-450); RBC 2.68 m/uL (3.80-5.40); RDW 14.9 % (11.5-15.5); WBC 26.3 k/uL (3.8-10.6)
[2018-06-20 09:38] LABS: Potassium 4.9 mmol/L (3.5-5.1)
[2018-06-20 09:39] LABS: Calcium 8.6 mg/dL (8.4-10.2)
[2018-06-20 11:12] LABS: Glucose,Whole Blood 308 mg/dL (75-99)
--- NOTE | 2018-06-20 11:32 | ECHOF ---
Referral Reason:CHF MEASUREMENTS -------- HEIGHT: 162.6 cm WEIGHT: 73.5 kg BP: 157/72 RVIDd: 2.8 cm (< 3.3) IVSd: 1.1 cm (0.6 - 1.1) LVIDd: 5.3 cm (3.9 - 5.3) LVPWd: 0.9 cm (0.6 - 1.1) IVSs: 1.4 cm LVIDs: 3.8 cm LVPWs: 1.3 cm LAESV Index (A-L): 31.29 ml/m Ao Diam: 2.6 cm (2.0 - 3.7) AV Cusp: 1.8 cm (1.5 - 2.6) LA Diam: 3.8 cm (2.7 - 3.8) MV EXCURSION: 15.618 mm (> 18.000) MV EF SLOPE: 141 mm/s (70 - 150) EPSS: 0.6 cm MV E Avelino: 1.75 m/s MV DecT: 262 ms MV A Avelino: 0.33 m/s MV E/A Ratio: 5.37 AR PHT: 464 ms RAP: 20.00 mmHg RVSP: 25.99 mmHg FINDINGS -------- Resting tachycardia (HR>100bpm). This was a technically good study. The left ventricular size is normal. Left ventricular wall thickness is normal. Overall left vent ricular systolic function is mildly impaired with, an EF between 45 - 50 %. The right ventricle is normal in size and function. LA is midly dilated 29-33ml/m2. The right atrium is normal in size. Aortic valve is trileaflet and is mildly thickened. Trace amount of aortic regurgitation. Can't exclude possible Bicuspid Aov. The mitral valve leaflets are mildly thickened. Severe mitral regurgitation is present. Mild tricuspid regurgitation present. The right ventricular systolic pressure, as measured by Doppl er, is 25.99mmHg. Pulmonic valve appears structurally normal. The aortic root size is normal. The inferior vena cava is dilated with no significant inspiratory collapse which is consistent estima lloyd right atrial pressure of >20 mmHg. There is a small, generalized pericardial effusion present. CONCLUSIONS -------- 1. Resting tachycardia (HR>100bpm). 2. This was a technically good study. 3. The left ventricular size is normal. 4. Left ventricular wall thickness is normal. 5. Overall left ventricular systolic function is mildly impaired with, an EF between 45 - 50 %. 6. The right ventricle is normal in size and function. 7. LA is midly dilated 29-33ml/m2. 8. The right atrium is normal in size. 9. Aortic valve is trileaflet and is mildly thickened. 10. Trace amount of aortic regurgitation. 11. Can't exclude possible Bicuspid Aov. 12. The mitral valve leaflets are mildly thickened. 13. Severe mitral regurgitation is present. 14. Mild tricuspid regurgitation present. 15. The right ventricular systolic pressure, as measured by Doppler, is 25.99mmHg. 16. Pulmonic valve appears structurally normal. 17. The aortic root size is normal. 18. The inferior vena cava is dilated with no significant inspiratory collapse which is consistent es timated right atrial pressure of >20 mmHg. 19. There is a small, generalized pericardial effusion present. MEDICAL PLANNER: Bing Freed RDCS
[2018-06-20] MEDS ORDERED: INSULIN DETEMIR (LEVEMIR) 100 UNIT/ML SYR SQ ONE (12:30)
[2018-06-20 13:45] VITALS: BMI 27.8
[2018-06-20] MEDS ORDERED: DARBEPOETIN ALFA 40 MCG/0.4 ML SYRINGE SQ SCH (14:00)
[2018-06-20 16:25] LABS: Glucose,Whole Blood 328 mg/dL (75-99)
--- NOTE | 2018-06-20 17:07 | P.PN ---
Subjective Progress Note Date: 06/20/18 Principal diagnosis: Shortness of breath Patient is a 47-year-old female with a past medical history of COPD, active tobacco abuse, congestive heart failure, hypertension, diabetes, dyslipidemia, and prior stroke who presented to the emergency department for gradual worsening shortness of breath. Her shortness of breath had been increasing for the last 2 weeks. She has been following with nephrology for worsening creatinine. They apparently decreased her Lasix and increase her hydrochlorothiazide dose. Since that point in time her edema had been increasing. In the emergency department she underwent an extensive evaluation. On initial evaluation she was hypertensive with a blood pressure 172/75. It improved with treatment of her shortness of breath but without specific intervention. Initial laboratory analysis showed a hemoglobin 8.9, potassium 5.3, carbon dioxide of 18, P1 22, and creatinine 1.99. Her blood sugar was elevated at 302. Chest x-ray showed basilar pulmonary infiltrate and lower extremity duplex was negative for left lower extremity DVT. She was started on diuretics and bronchodilators. She was admitted for further monitoring. Her blood sugar became elevated as her long-acting insulin had initially been held and she was started on steroids. By the morning after admission her breathing had improved significantly however her creatinine raised to 2.22. She was transferred to the cardiac unit after being evaluated by cardiology. She had her diuretics increased. She struggled with elevated blood sugars throughout the day and 06/19 and they had improved significantly by 06/20. Patient seen and examined at bedside with family present. Breathing is doing better today. Feeling a little coarse. Complains of feeling foggy lightheaded. Her blood sugars were severely elevated compared to her home blood sugars in the 200s. She states that her blood pressure has been well controlled at home. Her son is now taking care of her. She denies any nausea, vomiting, or diarrhea. She states her lower extremity edema is better. Objective - Vital Signs Vital signs: Vital Signs Temp 97.6 F 06/20/18 15:12 Pulse 90 06/20/18 16:36 Resp 18 06/20/18 15:12 BP 168/88 06/20/18 15:12 Pulse Ox 96 06/20/18 15:12 Intake & Output 06/19/18 06/20/18 06/20/18 18:59 06:59 18:59 Intake Total 720 960 702 Output Total 1200 Balance 720 960 -498 Weight 73.7 kg 73.7 kg Intake: Oral 720 960 702 Output: Urine 1200 Other: Voiding Method Toilet Toilet # Voids 2 2 - Exam General: ill appearing, no distress, appears older than stated age Derm: warm, dry Head: atraumatic, normocephalic, symmetric Eyes: EOMI, no lid lag, anicteric sclera Mouth: no lip lesion, mucus membranes moist Cardiovascular: S1S2 reg, no murmur, positive posterior tibial pulse bilateral, Lungs: Course bs bilateral, no rhonchi, no rales , no accessory muscle use Abdominal: soft, nontender to palpation, no guarding, no appreciable organomegaly Ext: no gross muscle atrophy, trace edema right foot, no edema, no contractures Neuro: CN II-XI grossly intact, no focal neuro deficits Psych: Alert, oriented, appropriate affect - Labs CBC & Chem 7: 06/20/18 09:01 06/20/18 09:01 Labs: Abnormal Lab Results - Last 24 Hours (Table) 06/19/18 06/19/18 06/19/18 Range/Units 09:42 16:40 20:24 WBC (3.8-10.6) k/uL RBC (3.80-5.40) m/uL Hgb (11.4-16.0) gm/dL Hct (34.0-46.0) % Chloride (98-107) mmol/L Carbon Dioxide (22-30) mmol/L BUN (7-17) mg/dL Creatinine (0.52-1.04) mg/dL Glucose (74-99) mg/dL POC Glucose (mg/dL) 448 H 285 H (75-99) mg/dL Hemoglobin A1c 9.0 H (4.0-6.0) % 06/20/18 06/20/18 06/20/18 Range/Units 05:46 09:01 09:01 WBC 26.3 H (3.8-10.6) k/uL RBC 2.68 L (3.80-5.40) m/uL Hgb 8.7 L (11.4-16.0) gm/dL Hct 26.5 L (34.0-46.0) % Chloride 110 H (98-107) mmol/L Carbon Dioxide 20 L (22-30) mmol/L BUN 38 H (7-17) mg/dL Creatinine 2.17 H (0.52-1.04) mg/dL Glucose 240 H (74-99) mg/dL POC Glucose (mg/dL) 261 H (75-99) mg/dL Hemoglobin A1c (4.0-6.0) % 06/20/18 06/20/18 Range/Units 11:11 16:24 WBC (3.8-10.6) k/uL RBC (3.80-5.40) m/uL Hgb (11.4-16.0) gm/dL Hct (34.0-46.0) % Chloride (98-107) mmol/L Carbon Dioxide (22-30) mmol/L BUN (7-17) mg/dL Creatinine (0.52-1.04) mg/dL Glucose (74-99) mg/dL POC Glucose (mg/dL) 308 H 328 H (75-99) mg/dL Hemoglobin A1c (4.0-6.0) % Microbiology - Last 24 Hours (Table) 06/18/18 20:06 Blood Culture - Preliminary Blood No Growth after 24 hours Assessment and Plan Assessment: Acute exaerbation of COPD with acute bronchitis - levaquin - Prednisone - bronchodilators - pum hygeine Acute exacerbation of systolic congestive heart failure with ejection fraction 45-50%, fluid restriction -Lasix -Cardiology recommendations -Off Aldactone for now will restart if creatinine decreases -Coreg -Not appropriate candidate for MI inhibitor at this point in time NED on CKD - consult nephro - hold aldactone - fluid restriction - avoid additional nephrotoxic agents - follow Cr in AM DM 2 with hyperglycemia - Increase Levemir, increase scheduled NovoLog in addition to sliding scale - Follow BS - A1C pending HTN, controlled - resume norvasc - follow BP Tobacco ause - cessation - nicotine replacement HLD - statin PAD - plavix and statin Hyperkalemia, resolved DVT prophylaxis: Heparin Discussed with: Patient, family, nursing Anticipated discharge: 2-[address]: home A total of 35 minutes was spent on the care of this complex patient more than 50 % of the time was spent in counseling and care coordination.
[2018-06-20] MEDS: METOPROLOL SUCCINATE (ER) 50 MG TAB.ER.24H PO SCH (17:33)
--- NOTE | 2018-06-20 18:41 | XR ---
EXAMINATION TYPE: XR chest 2V DATE OF EXAM: 06/20/2018 COMPARISON: June 18, 2018 HISTORY: Heart failure TECHNIQUE: Frontal and lateral views of the chest are obtained. FINDINGS: There is mild pulmonary congestion. There is slight blunting of the costophrenic angles. T here are chest leads. There are no hilar masses. Mediastinum is normal. IMPRESSION: Mild congestive heart failure that is improved compared to last exam. There is decreased pleural fluid.
[2018-06-20 19:20] LABS: Iron Saturation 42.23 (12.00-45.00)
--- NOTE | 2018-06-20 20:17 | CONS ---
CONSULTATION REASON FOR CONSULT: Renal failure. HISTORY OF PRESENT ILLNESS: The patient is a 47-year-old female with history of chronic kidney disease NKF stage 3 with baseline creatinine close to 2 mg/dL. Etiology is diabetic kidney disease. Patient was admitted to the hospital with complaints of increased shortness of breath and lower extremity edema. She denied any fevers, chills. The patient did have some cough. No nausea, vomiting, abdominal pain, or diarrhea. PAST MEDICAL HISTORY: CKD and NKF stage IV to 3B. COPD, history of CVA, TIA, hyperlipidemia, hypertension, peripheral vascular disease. PAST SURGICAL HISTORY: Appendectomy, bowel resection, tubal ligation, history of colostomy and reversal of colostomy, rotator cuff repair, anxiety and depression. SOCIAL HISTORY: Positive for smoking and history of marijuana use. No other drug abuse or alcohol abuse. MEDICATIONS: Medications at home prior to admission included Plavix, , Iron, Claritin, Lamictal, Coreg, Lipitor, Celexa, HydroDIURIL, Aldactone, Pepcid, Norvasc, Zithromax. ALLERGIES: INCLUDE PENICILLIN AND BEES. PHYSICAL EXAMINATION: Patient is comfortable, awake, alert, and oriented x3, not in any acute distress. Blood pressure is 90/54, heart rate 87 per minute. Patient is afebrile. Examination of the heart S1, S2. Examination of the lungs bilateral breath sounds are heard. Decreased breath sounds at the bases. Abdomen is soft, nontender. Exam of lower extremities shows edema 1+ bilaterally. LIQUID [employer]ER exam is grossly intact. LABS: Sodium 139, potassium 4.9, chloride 110, BUN 38, serum creatinine 2.17, hemoglobin 8.7 g/dL. ASSESSMENT: 1. Chronic kidney disease NKF stage IIIB to IV secondary to diabetic kidney disease. Renal function at baseline. I will continue to diurese the patient. 2. Anemia of chronic disease. We will recheck iron studies and maintain patient on Aranesp. 3. Fluid overload. Continue with the Lasix. Repeat chest x-ray. 4. CKD mineral bone disorder. 5. Nicotine abuse. PLAN: Continue with Lasix. Maintain patient on Aranesp. Repeat chest x-ray. Hold off on Norvasc as blood pressure had dropped to 90 systolic and I will add parameters for the hydralazine. If thank you for this consultation. We will continue to follow the patient with you during her hospitalization. MMHENRIETTA / IJN: [id number] /
[2018-06-20 21:03] LABS: Glucose,Whole Blood 327 mg/dL (75-99)
[2018-06-20] MEDS: hydrALAZINE HCL 50 MG TAB PO SCH (21:50)
[2018-06-20] MEDS: ATORVASTATIN 80 MG TAB PO SCH (21:50)
[2018-06-20] MEDS: FUROSEMIDE 10 MG/ML 4 ML VIAL IV SCH (21:50)
[2018-06-20] MEDS: LEVOFLOXACIN 250 MG TAB PO SCH (22:05)
--- NOTE | 2018-06-20 23:08 | CONS ---
CONSULTATION DATE OF SERVICE: 06/19/2018 Mrs. Her is a 47-year-old female who was seen in consultation for symptoms of shortness of breath. This patient's medical records are reviewed. The patient has a known history of COPD, active smoker, severe peripheral vascular disease with bilateral femoral-popliteal surgery. Patient has a history of hypertension, diabetes and hyperlipidemia, and she says she has a prior history of stroke. Patient came to the emergency room with worsening shortness of breath over the last 2 to 3 days with a history suggestive of orthopnea and PND. Patient denied any significant cough with expectoration. This patient's Lasix was decreased recently and hydrochlorothiazide was increased. Patient denies any definite history of myocardial infarction, denies any history of angina. PAST MEDICAL HISTORY: Includes: 1. History of appendicectomy. 2. Bowel resection. 3. Orthopedic surgery. 4. History of colostomy. 5. History of bilateral femoral bypass surgery. 6. History of bilateral carotid artery stenosis with TIA. SMOKING HISTORY: Patient is a heavy tobacco smoker. HOME MEDICATIONS: Included: 1. Plavix 75 mg daily. 2. Vitamin D2. 3. Claritin 10 mg daily. 4. Lipitor 80 mg daily. 5. Celexa 20 mg daily. 6. Insulin. 7. Spironolactone 25 mg daily. 8. Pepcid once a day. 9. Atrovent inhaler. PHYSICAL EXAMINATION: Physical examination at present reveals a 47-year-old female who is not in any acute distress. In the emergency room, patient's blood pressure was 172/75 mmHg. Blood pressure now is 168/88 mmHg. HEENT examination is negative. Neck is supple. Jugular venous pressure is difficult to assess. Patient has a bilateral carotid bruit noted. Chest is symmetrical. HEART: The PMI is not felt. First and second heart sounds are normal. There is evidence of S3 gallop. No significant murmurs are noted. Lungs reveal bilateral basal rales. Abdomen is soft. Liver and spleen not enlarged. EXTREMITIES: Peripheral pulsations are not felt. Patient's chest x-ray shows bilateral pleural effusion with congestive cardiac failure. EKG shows a normal sinus rhythm with poor R-wave progression from V1 to V4; cannot rule out old anterior wall myocardial infarction. Patient's initial creatinine was 1.99. Repeat creatinine is 2.22. Patient's blood sugars are significantly elevated. Patient's troponin is 0.012 and proBNP level was 6890. FINAL IMPRESSION: This patient is admitted with symptoms suggestive of congestive cardiac failure. Patient has multiple medical problems, including COPD, severe peripheral vascular disease and bilateral carotid artery disease, hypertension, diabetes and chronic kidney disease. At present patient appears to be fluid volume-overloaded. We will resume the Lasix 40 mg IV q.12 hourly and follow the creatinine. Echo and Doppler study will be obtained. MMHENRIETTA / COLINN: [id number] /
--- NOTE | 2018-06-20 23:08 | PN ---
PROGRESS NOTE DATE OF SERVICE: 06/20/2018 This patient is feeling better. The breathing is improved. Patient's Lasix was again discontinued yesterday by the hospitalist. Blood pressure now is 168/88 mmHg. First and second heart sounds are normal. There is an S3 gallop noted. Lung examination reveals bilateral basal rales. Abdomen is soft. Patient's creatinine remains around 2.17. Patient needs to be on diuretics to treat her congestive heart failure. Echocardiogram reveals ejection fraction of about 40% with inferolateral hypokinesia and moderate degree of mitral regurgitation. I will increase the hydralazine and nitrates and start on Coreg. MMODL / IJN: [id number] /
[2018-06-21] MEDS: IPRATROPIUM 0.5 MG/2.5 ML NEBU INHALATION SCH ×4 (00:55→23:36)
[2018-06-21] MEDS: IPRATROPIUM-ALBUTEROL 3 ML NEB INHALATION SCH ×4 (06:07→22:11)
[2018-06-21 06:24] LABS: Glucose,Whole Blood 374 mg/dL (75-99)
[2018-06-21] MEDS: INSULIN ASPART (NovoLOG) 100 UNIT/ML VIAL SQ SCH ×7 (07:07→21:37)
[2018-06-21 07:36] LABS: HCT 23.7 % (34.0-46.0); HGB 7.6 gm/dL (11.4-16.0); MCH 32.2 pg (25.0-35.0); MCHC 32.1 g/dL (31.0-37.0); MCV 100.6 fL (80.0-100.0); Macrocytosis Slight; Mean Platelet Volume 7.8; Platelet Count 247 k/uL (150-450); RBC 2.36 m/uL (3.80-5.40); RDW 14.9 % (11.5-15.5); WBC 19.3 k/uL (3.8-10.6)
[2018-06-21 07:42] LABS: Calcium 8.2 mg/dL (8.4-10.2); Potassium 4.8 mmol/L (3.5-5.1)
[2018-06-21] MEDS ORDERED: INSULIN DETEMIR (LEVEMIR) 100 UNIT/ML SYR SQ SCH (09:00)
[2018-06-21] MEDS: CLOPIDOGREL 75 MG TAB PO SCH (10:48)
[2018-06-21] MEDS: HEPARIN SODIUM,PORCINE 5,000 UNIT/ML 1 ML VIAL SQ SCH ×3 (10:48→21:36)
[2018-06-21] MEDS: ASPIRIN 81 MG PO SCH (10:49)
[2018-06-21] MEDS: FAMOTIDINE 20 MG TAB PO SCH (10:49)
[2018-06-21] MEDS: FERROUS SULFATE 325 MG TAB PO SCH (10:49)
[2018-06-21] MEDS: CITALOPRAM HYDROBROMIDE 20 MG TAB PO SCH (10:49)
[2018-06-21] MEDS: amLODIPine 10 MG TAB PO SCH (10:49)
[2018-06-21] MEDS: NICOTINE 21MG/24HR PATCH TRANSDERM SCH (10:50)
[2018-06-21] MEDS: FUROSEMIDE 10 MG/ML 4 ML VIAL IV SCH (10:50)
[2018-06-21 11:30] LABS: Glucose,Whole Blood 170 mg/dL (75-99)
[2018-06-21] MEDS: predniSONE 20 MG TAB PO SCH (11:38)
[2018-06-21] MEDS: METOPROLOL SUCCINATE (ER) 50 MG TAB.ER.24H PO SCH (11:39)
[2018-06-21] MEDS: LORATADINE 10 MG TAB PO SCH (11:39)
[2018-06-21] MEDS: ISOSORBIDE MONONITRATE ER 60 MG TAB.ER.24H PO SCH (11:39)
[2018-06-21] MEDS: hydrALAZINE HCL 50 MG TAB PO SCH ×3 (11:40→21:35)
[2018-06-21] MEDS: lamoTRIgine 25 MG TAB PO SCH ×2 (11:40→21:35)
[2018-06-21] MEDS ORDERED: cloNIDine 0.1 MG/24HR PATCH TRANSDERM SCH (12:00)
--- NOTE | 2018-06-21 14:34 | P.PN ---
Subjective Progress Note Date: 06/21/18 This is a 47-year-old female who was seen in consultation by Dr. VC Winkler, she presented to the hospital with symptoms of shortness of breath. She has a known history of COPD, nicotine dependence, severe peripheral vascular disease with bilateral femoral-popliteal surgery, hypertension, diabetes, hyperlipidemia, and prior history of stroke. She presented to the hospital with symptoms of 2-3 day duration of worsening shortness of breath, positive PND and orthopnea. She is currently being treated for congestive cardiac failure exacerbation. Nephrology is following along and dosing diuretics accordingly. The patient did have a repeat chest x-ray yesterday which continued to show congestive heart failure. There was a decrease in the amount of pleural fluid. Blood pressure 130/70 with a heart rate in the 70s, 96 % on room air. White blood cell count 19.3, hemoglobin 7.6, platelet count 247. Sodium 139, potassium 4.8, BUN 47 and creatinine 2.3. Echocardiogram with Doppler study was performed which revealed an ejection fraction of 45-50%. Cannot exclude a possible bicuspid aortic valve. Severe mitral regurgitation. Overall the patient states she's feeling significantly better today. She still continues to have orthopnea. Objective - Vital Signs Vital signs: Vital Signs Temp 98.2 F 06/21/18 12:00 Pulse 76 06/21/18 12:00 Resp 18 06/21/18 12:00 BP 131/73 06/21/18 12:00 Pulse Ox 96 06/21/18 12:00 Intake & Output 06/20/18 06/21/18 06/21/18 18:59 06:59 18:59 Intake Total 702 870 430 Output Total 2400 875 400 Balance -1698 -5 30 Weight 73.7 kg 73.5 kg Intake: IV 30 10 Invasive Line 1 30 10 Oral 702 840 420 Output: Urine 2400 875 400 Other: Voiding Method Toilet Toilet # Voids 1 - Exam PHYSICAL EXAMINATION: GENERAL: 47-year-old female in no acute distress at the time of my examination HEENT: Head is atraumatic, normocephalic. Pupils equal, round. Sclera anicteric. Conjunctiva are clear. Mucous membranes of the mouth are moist. Neck is supple. There is no elevated jugular venous pressure. Bilateral carotid bruit is heard. HEART EXAMINATION: Heart S1-S2 evidence of a S3 gallop heard. CHEST EXAMINATION: Lungs reveal fine crackles bilaterally to the bases. ABDOMEN: Soft, nontender. Bowel sounds are heard. No organomegaly noted. EXTREMITIES: Faint peripheral pulses with no evidence of peripheral edema and no calf tenderness noted. NEUROLOGIC patient is awake, alert and oriented X3. . - Labs CBC & Chem 7: 06/21/18 05:54 06/21/18 05:54 Labs: Abnormal Lab Results - Last 24 Hours (Table) 06/20/18 06/20/18 06/21/18 Range/Units 16:24 21:02 05:54 WBC 19.3 H (3.8-10.6) k/uL RBC 2.36 L (3.80-5.40) m/uL Hgb 7.6 L (11.4-16.0) gm/dL Hct 23.7 L (34.0-46.0) % MCV 100.6 H (80.0-100.0) fL Chloride (98-107) mmol/L Carbon Dioxide (22-30) mmol/L BUN (7-17) mg/dL Creatinine (0.52-1.04) mg/dL Glucose (74-99) mg/dL POC Glucose (mg/dL) 328 H 327 H (75-99) mg/dL Calcium (8.4-10.2) mg/dL 06/21/18 06/21/18 06/21/18 Range/Units 05:54 06:23 11:10 WBC (3.8-10.6) k/uL RBC (3.80-5.40) m/uL Hgb (11.4-16.0) gm/dL Hct (34.0-46.0) % MCV (80.0-100.0) fL Chloride 112 H (98-107) mmol/L Carbon Dioxide 20 L (22-30) mmol/L BUN 47 H (7-17) mg/dL Creatinine 2.30 H (0.52-1.04) mg/dL Glucose 320 H (74-99) mg/dL POC Glucose (mg/dL) 374 H 170 H (75-99) mg/dL Calcium 8.2 L (8.4-10.2) mg/dL Microbiology - Last 24 Hours (Table) 06/18/18 20:06 Blood Culture - Preliminary Blood No Growth after 48 hours Assessment and Plan Plan: Assessment and plan #1 diastolic congestive heart failure acute on chronic #2 COPD exacerbation #3 severe peripheral vascular disease with bilateral carotid artery disease #4 hypertension #5 diabetes #6 acute on chronic kidney disease Plan We will continue current dose of IV Lasix as per recommendations from nephrology. Continue to monitor intake and output along with daily weights and daily lytes BUN and creatinine. We will repeat a chest x-ray. DNP note has been reviewed, I agree with a documented findings and plan of care. Patient was seen and examined.
[2018-06-21] MEDS: ACETAMINOPHEN TAB 325 MG TAB PO PRN (15:22)
[2018-06-21] MEDS: INSULIN DETEMIR (LEVEMIR) 100 UNIT/ML SYR SQ SCH (15:23)
[2018-06-21 16:40] LABS: Glucose,Whole Blood 89 mg/dL (75-99)
--- NOTE | 2018-06-21 16:55 | XR ---
EXAMINATION: XR chest 2V DATE AND TIME: 06/21/2018 4:34 PM CLINICAL INDICATION: PHH; f/u chf TECHNIQUE: Departmental protocol COMPARISON: 06/20/2018 at 6:00 PM FINDINGS: There is mild silhouetting of the pulmonary vasculature bilaterally consistent with mild i nterstitial phase pulmonary edema. There is partial left lower lobe airlessness in the retrocardiac p osition. Mild blunting of the costophrenic angles are is noted again, bilaterally. There are no abnormal gas collections. Soft tissues and skeletal structures are negative for acute findings. IMPRESSION: Stable findings when compared to the chest radiographic examination of 06/20/2018 6:00 PM
--- NOTE | 2018-06-21 18:27 | P.PN ---
Subjective Progress Note Date: 06/21/18 Principal diagnosis: Shortness of breath Patient is a 47-year-old female with a past medical history of COPD, active tobacco abuse, congestive heart failure, hypertension, diabetes, dyslipidemia, and prior stroke who presented to the emergency department for gradual worsening shortness of breath. Her shortness of breath had been increasing for the last 2 weeks. She has been following with nephrology for worsening creatinine. They apparently decreased her Lasix and increase her hydrochlorothiazide dose. Since that point in time her edema had been increasing. In the emergency department she underwent an extensive evaluation. On initial evaluation she was hypertensive with a blood pressure 172/75. It improved with treatment of her shortness of breath but without specific intervention. Initial laboratory analysis showed a hemoglobin 8.9, potassium 5.3, carbon dioxide of 18, P1 22, and creatinine 1.99. Her blood sugar was elevated at 302. Chest x-ray showed basilar pulmonary infiltrate and lower extremity duplex was negative for left lower extremity DVT. She was started on diuretics and bronchodilators. She was admitted for further monitoring. Her blood sugar became elevated as her long-acting insulin had initially been held and she was started on steroids. By the morning after admission her breathing had improved significantly however her creatinine raised to 2.22. She was transferred to the cardiac unit after being evaluated by cardiology. She had her diuretics increased. She struggled with elevated blood sugars throughout the day and 06/19 and they had improved significantly by 06/20. Her breathing continued to improve. Patient seen and examined at bedside with family present. Feeling much better. Sugar is still a little high. Breathing much better has been up and walking. No edema. No chest pain. D/W Dr. Montelongo will trial oral lasix and plan on home in AM with follow up in 1- 2 weeks on lasix and aldactone. Objective - Vital Signs Vital signs: Vital Signs Temp 98.2 F 06/21/18 12:00 Pulse 72 06/21/18 17:10 Resp 18 06/21/18 12:00 BP 131/73 06/21/18 12:00 Pulse Ox 96 06/21/18 12:00 Intake & Output 06/20/18 06/21/18 06/21/18 18:59 06:59 18:59 Intake Total 702 870 430 Output Total 2400 875 400 Balance -1698 -5 30 Weight 73.7 kg 73.5 kg Intake: IV 30 10 Invasive Line 1 30 10 Oral 702 840 420 Output: Urine 2400 875 400 Other: Voiding Method Toilet Toilet # Voids 1 - Exam General:non toxic, no distress, appears older than stated age Derm: warm, dry Head: atraumatic, normocephalic, symmetric Eyes: EOMI, no lid lag, anicteric sclera Mouth: no lip lesion, mucus membranes moist Cardiovascular: S1S2 reg, no murmur, positive posterior tibial pulse bilateral, Lungs: Course bs bilateral, no rhonchi, no rales , no accessory muscle use Abdominal: soft, nontender to palpation, no guarding, no appreciable organomegaly Ext: no gross muscle atrophy, trace edema right foot, no edema, no contractures Neuro: CN II-XI grossly intact, no focal neuro deficits Psych: Alert, oriented, appropriate affect - Labs CBC & Chem 7: 06/21/18 05:54 06/21/18 05:54 Labs: Abnormal Lab Results - Last 24 Hours (Table) 06/20/18 06/21/18 06/21/18 Range/Units 21:02 05:54 05:54 WBC 19.3 H (3.8-10.6) k/uL RBC 2.36 L (3.80-5.40) m/uL Hgb 7.6 L (11.4-16.0) gm/dL Hct 23.7 L (34.0-46.0) % MCV 100.6 H (80.0-100.0) fL Chloride 112 H (98-107) mmol/L Carbon Dioxide 20 L (22-30) mmol/L BUN 47 H (7-17) mg/dL Creatinine 2.30 H (0.52-1.04) mg/dL Glucose 320 H (74-99) mg/dL POC Glucose (mg/dL) 327 H (75-99) mg/dL Calcium 8.2 L (8.4-10.2) mg/dL 06/21/18 06/21/18 Range/Units 06:23 11:10 WBC (3.8-10.6) k/uL RBC (3.80-5.40) m/uL Hgb (11.4-16.0) gm/dL Hct (34.0-46.0) % MCV (80.0-100.0) fL Chloride (98-107) mmol/L Carbon Dioxide (22-30) mmol/L BUN (7-17) mg/dL Creatinine (0.52-1.04) mg/dL Glucose (74-99) mg/dL POC Glucose (mg/dL) 374 H 170 H (75-99) mg/dL Calcium (8.4-10.2) mg/dL Microbiology - Last 24 Hours (Table) 06/18/18 20:06 Blood Culture - Preliminary Blood No Growth after 48 hours Assessment and Plan Assessment: Acute exaerbation of COPD with acute bronchitis - levaquin - Prednisone - bronchodilators - pum hygeine Acute exacerbation of systolic congestive heart failure with ejection fraction 45-50%, fluid restriction -Lasix to PO as d/w nephro -Cardiology recommendations -resume aldactone per nephro -Coreg -Not appropriate candidate for MI inhibitor at this point in time. NED on CKD - nephro recs appreciated - aldactone - fluid restriction - avoid additional nephrotoxic agents - follow Cr in AM DM 2 with hyperglycemia - Increase Levemir, increase scheduled NovoLog in addition to sliding scale - Follow BS - A1C 9 HTN, controlled - Norvasc - follow BP Tobacco ause - cessation - nicotine replacement HLD - statin PAD - plavix and statin Hyperkalemia, resolved DVT prophylaxis: Heparin Discussed with: Patient, family, nursing, Dr. Montelongo Anticipated discharge: 2-[address]: home A total of 35 minutes was spent on the care of this complex patient more than 50 % of the time was spent in counseling and care coordination.
[2018-06-21] MEDS ORDERED: MELATONIN 5 MG TABLET PO PRN (18:35)
[2018-06-21 20:34] LABS: Glucose,Whole Blood 235 mg/dL (75-99)
[2018-06-21] MEDS: ATORVASTATIN 80 MG TAB PO SCH (21:35)
[2018-06-21] MEDS: LEVOFLOXACIN 250 MG TAB PO SCH (21:37)
--- NOTE | 2018-06-22 04:28 | PN ---
PROGRESS NOTE Patient is seen for followup for chronic kidney disease. She was admitted with fluid overload. The volume status has improved and the patient will be switched over to oral Lasix today and we will repeat labs in a.m. EXAMINATION: Today blood pressure is 166/74, heart rate of 80 per minute. Patient is afebrile. Examination of the heart S1, S2. Examination lungs bilateral breath sounds are heard. Abdomen is soft, nontender. Examination lower extremities shows no evidence of edema. MED ASST exam is grossly intact. LABS: Sodium 139, potassium 4.8, chloride 112, BUN 47, serum creatinine 2.3, hemoglobin of 7.6 g/dL. ASSESSMENT: 1. Chronic kidney disease NKF stage IV secondary to diabetic kidney disease. Renal function not far from baseline. 2. Fluid overload, currently improved. 3. Chronic kidney disease mineral bone disorder. 4. Anemia of chronic disease. Continue with the Aranesp. Patient is iron replete. No active bleeding noted at this time. Hemoglobin is at 7.6 g/dL. 5. Hypertension, partly volume sensitive, currently improved. Patient is maintained on Norvasc. She will be switched from hydrochlorothiazide which she was taking as outpatient to loop diuretics. The patient is also on Toprol, which has been switched over from Coreg. Blood pressure should improve as the dose of the steroids is decreased as well. PLAN: To switch to oral loop diuretics, to hold off on thiazide diuretics at the time of discharge. Expect blood pressure to improve with improved volume status and decreasing dose of prednisone as outpatient. Patient will need followup in about one week as outpatient. MMODL / IJN: [id number] /
[2018-06-22 06:06] LABS: Glucose,Whole Blood 266 mg/dL (75-99)
[2018-06-22 06:25] LABS: HCT 25.1 % (34.0-46.0); HGB 7.8 gm/dL (11.4-16.0); MCH 31.2 pg (25.0-35.0); MCHC 31.1 g/dL (31.0-37.0); MCV 100.4 fL (80.0-100.0); Macrocytosis Slight; Mean Platelet Volume 8.7; Platelet Count 238 k/uL (150-450); RDW 15.1 % (11.5-15.5); WBC 16.6 k/uL (3.8-10.6)
[2018-06-22 06:56] LABS: Calcium 8.3 mg/dL (8.4-10.2)
[2018-06-22] MEDS: INSULIN ASPART (NovoLOG) 100 UNIT/ML VIAL SQ SCH (07:01)
[2018-06-22] MEDS ORDERED: INSULIN ASPART (NovoLOG) 100 UNIT/ML VIAL SQ SCH (07:30)
[2018-06-22] MEDS: IPRATROPIUM-ALBUTEROL 3 ML NEB INHALATION SCH ×2 (07:37→11:49)
[2018-06-22] MEDS ORDERED: FUROSEMIDE 20 MG TAB PO SCH (09:00)
[2018-06-22 09:24] VITALS: BP 92/57; PULSE 83; RESP 16; TEMP 98.8
[2018-06-22] MEDS: LORATADINE 10 MG TAB PO SCH (09:42)
[2018-06-22] MEDS: ISOSORBIDE MONONITRATE ER 60 MG TAB.ER.24H PO SCH (09:42)
[2018-06-22] MEDS: HEPARIN SODIUM,PORCINE 5,000 UNIT/ML 1 ML VIAL SQ SCH (09:42)
[2018-06-22] MEDS: ASPIRIN 81 MG PO SCH (09:42)
[2018-06-22] MEDS: CLOPIDOGREL 75 MG TAB PO SCH (09:42)
[2018-06-22] MEDS: METOPROLOL SUCCINATE (ER) 50 MG TAB.ER.24H PO SCH (09:42)
[2018-06-22] MEDS: FAMOTIDINE 20 MG TAB PO SCH (09:42)
[2018-06-22] MEDS: amLODIPine 10 MG TAB PO SCH (09:42)
[2018-06-22] MEDS: FERROUS SULFATE 325 MG TAB PO SCH (09:42)
[2018-06-22] MEDS: hydrALAZINE HCL 50 MG TAB PO SCH (09:42)
[2018-06-22] MEDS: CITALOPRAM HYDROBROMIDE 20 MG TAB PO SCH (09:42)
[2018-06-22] MEDS: predniSONE 20 MG TAB PO SCH (09:43)
[2018-06-22] MEDS: NICOTINE 21MG/24HR PATCH TRANSDERM SCH (09:43)
[2018-06-22] MEDS: lamoTRIgine 25 MG TAB PO SCH (09:43)
[2018-06-22] MEDS: INSULIN DETEMIR (LEVEMIR) 100 UNIT/ML SYR SQ SCH (10:07)
--- NOTE | 2018-06-22 11:22 | P.DS ---
Providers Date of admission: 06/18/18 21:58 Expected date of discharge: 06/22/18 Attending physician: Rohit Costa MD Consults: 06/19/18 04:09 Consult Physician Urgent Consulting Provider: Ananda Becerril Consult Reason/Comments: CHF Do you want consulting provider notified?: Yes 06/19/18 12:20 Consult Physician Routine Consulting Provider: Mis Montelongo Consult Reason/Comments: NED Do you want consulting provider notified?: Yes Primary care physician: Tamika Pratt MD Hospital Course: Discharge Diagnosis: Acute exacerbation of COPD with acute bronchitis Acute exacerbation of systolic congestive heart failure with ejection fraction 45-50% Acute kidney injury on chronic kidney disease stage IV Diabetes mellitus type 2 with hyperglycemia Hypertension Tobacco abuse Dyslipidemia Peripheral arterial disease Hyperkalemia CML Hospital Course: Patient is a 47-year-old female with a past medical history of COPD, active tobacco abuse, congestive heart failure, hypertension, diabetes, dyslipidemia, and prior stroke who presented to the emergency department for gradual worsening shortness of breath. Her shortness of breath had been increasing for the last 2 weeks. She has been following with nephrology for worsening creatinine. They apparently decreased her Lasix and increased her hydrochlorothiazide dose. Since that point in time her edema had been increasing. In the emergency department she underwent an extensive evaluation. On initial evaluation she was hypertensive with a blood pressure 172/75. It improved with treatment of her shortness of breath but without specific intervention. Initial laboratory analysis showed a hemoglobin 8.9, potassium 5.3, carbon dioxide of 18, P1 22, and creatinine 1.99. Her blood sugar was elevated at 302. Chest x-ray showed basilar pulmonary infiltrate and lower extremity duplex was negative for left lower extremity DVT. She was started on diuretics and bronchodilators. She was admitted for further monitoring. Her blood sugar became elevated as her long-acting insulin had initially been held and she was started on steroids. By the morning after admission her breathing had improved significantly however her creatinine raised to 2.22. She was transferred to the cardiac unit after being evaluated by cardiology. She had her diuretics increased. She struggled with elevated blood sugars throughout the day and 06/19 and they had improved significantly by 06/20. Her breathing continued to improve. Her Cr remained stable. Her BP was elevated and medications were adjusted by cardiology. On the morning of 06/22 her BP was controlled and she had been up and ambulating in the hallways. She was determined stable for discharge and case was discussed with nephrology. They recommended no catapress patch and decrease hydralazine on 25 BID. We anticipate that her BP will improve off prednisone in several days. Her A1C was noted to be 9 and she had hyperglycemia in the hospital. We recommended insulin therapy on discharge. She will administer fixed dose insulin with meals and has signed up for diabetic education classes. She was given a chart to record her weight, BP, and blood sugars. Arrangement were made to see [facility]. For exact BP and insulin instruction given to the patient see below. Patient seen and examined at bedside. Breathing much better, still slightly dyspnic at night. No nausea, no vomiting, no diarrhea. Edema resolved. Spent extensive time talking with her and her son about plans for insulin and blood pressure medications. Vital signs reviewed and stable. General: non toxic, no distress, appears at stated age Derm: warm, dry Head: atraumatic, normocephalic, symmetric Eyes: EOMI, no lid lag, anicteric sclera Mouth: no lip lesion, mucus membranes moist Cardiovascular: S1S2 reg, no murmur, positive posterior tibial pulse bilateral, Lungs: decreaed bs b/l, no rhonchi, no rales , no accessory muscle use Abdominal: soft, nontender to palpation, no guarding, no appreciable organomegaly Ext: no gross muscle atrophy, no edema, no contractures Neuro: CN II-XI grossly intact, no focal neuro deficits Psych: Alert, oriented, appropriate affect A total of 55 minutes of time were spent preparing this complex discharge summary . Pertinent Studies: Chest w-ltd-aonaata fluid with basilar pulmonary infiltrates and atelectasis Venous Dopplers-no evidence of DVT in the left leg Echocardiogram-ejection fraction 45-50% Patient Condition at Discharge: Stable Plan - Discharge Summary Discharge Rx Participant: No New Discharge Prescriptions: New Furosemide [Lasix] 60 mg PO BID@0900,1600 #60 tab hydrALAZINE HCL 25 mg PO BID #60 tablet Insulin Lispro [Admelog Solostar] 16 unit SQ AC-TID #5 insuln.pen Isosorbide Mononitrate ER [Imdur] 60 mg PO DAILY #30 tab.er.24h Levofloxacin [Levaquin] 250 mg PO Q24H #2 tab Metoprolol Succinate (ER) [Toprol XL] 50 mg PO DAILY #30 tab.er.24h predniSONE 40 mg PO DAILY #6 tab Continue Clopidogrel Bisulfate [Plavix] 75 mg PO DAILY Loratadine [Claritin] 10 mg PO DAILY lamoTRIgine [LaMICtal] 25 mg PO BID Ferrous Sulfate [Iron (65 MG Elemental)] 325 mg PO DAILY Ergocalciferol (Vitamin D2) [Drisdol] 50,000 unit PO Q14D Citalopram Hydrobromide [CeleXA] 20 mg PO DAILY Atorvastatin [Lipitor] 80 mg PO HS Albuterol Inhaler [Ventolin Hfa Inhaler] 1 - 2 puff INHALATION RT-Q6H PRN PRN Reason: Shortness Of Breath Tiotropium [place] [Spiriva Respimat] 2 spray INHALATION RT-DAILY amLODIPine [Norvasc] 10 mg PO DAILY Aspirin EC [Ecotrin Low Dose] 81 mg PO DAILY Famotidine [Pepcid] 40 mg PO DAILY Ipratropium-Albuterol Nebulize [Duoneb 0.5 mg-3 mg/3 ml Soln] 3 ml INHALATION RT-BID Changed Insulin Glargine,Hum.rec.anlog [Basaglar Kwikpen U-100] 20 unit SQ DAILY@ 1400 #0 Discontinued Carvedilol [Coreg] 12.5 mg PO BID Spironolactone [Aldactone] 25 mg PO DAILY Hydrochlorothiazide [Hydrodiuril] 12.5 mg PO BID Alogliptin Benzoate [Alogliptin] 6.25 mg PO DAILY Azithromycin [Zithromax] 500 mg PO DAILY Discharge Medication List Clopidogrel Bisulfate [Plavix] 75 mg PO DAILY 01/21/15 [History] Ergocalciferol (Vitamin D2) [Drisdol] 50,000 unit PO Q14D 01/21/15 [History] Ferrous Sulfate [Iron (65 MG Elemental)] 325 mg PO DAILY 01/21/15 [History] Loratadine [Claritin] 10 mg PO DAILY 01/21/15 [History] lamoTRIgine [LaMICtal] 25 mg PO BID 01/21/15 [History] Albuterol Inhaler [Ventolin Hfa Inhaler] 1 - 2 puff INHALATION RT-Q6H PRN [History] Atorvastatin [Lipitor] 80 mg PO HS 06/30/17 [History] Citalopram Hydrobromide [CeleXA] 20 mg PO DAILY 06/30/17 [History] Aspirin EC [Ecotrin Low Dose] 81 mg PO DAILY 06/18/18 [History] Famotidine [Pepcid] 40 mg PO DAILY 06/18/18 [History] Ipratropium-Albuterol Nebulize [Duoneb 0.5 mg-3 mg/3 ml Soln] 3 ml INHALATION RT -BID 06/18/18 [History] Tiotropium [place] [Spiriva Respimat] 2 spray INHALATION RT-DAILY 06/18/18 [ History] amLODIPine [Norvasc] 10 mg PO DAILY 06/18/18 [History] Furosemide [Lasix] 60 mg PO BID@0900,1600 #60 tab 06/22/18 [Rx] Insulin Glargine,Hum.rec.anlog [Basaglar Kwikpen U-100] 20 unit SQ DAILY@1400 # 0 06/22/18 [Rx] Insulin Lispro [Admelog Solostar] 16 unit SQ AC-TID #5 insuln.pen 06/22/18 [Rx] Isosorbide Mononitrate ER [Imdur] 60 mg PO DAILY #30 tab.er.24h 06/22/18 [Rx] Levofloxacin [Levaquin] 250 mg PO Q24H #2 tab 06/22/18 [Rx] Metoprolol Succinate (ER) [Toprol XL] 50 mg PO DAILY #30 tab.er.24h 06/22/18 [Rx ] hydrALAZINE HCL 25 mg PO BID #60 tablet 06/22/18 [Rx] predniSONE 40 mg PO DAILY #6 tab 06/22/18 [Rx] Follow up Appointment(s)/Referral(s): Mis Montelongo MD [STAFF PHYSICIAN] - 1 Week (keep your already prescheduled appointment) Pan Mckinney MD [STAFF PHYSICIAN] - 1 Week (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 Office will call with appointment time) Tamika Pratt MD [Primary Care Provider] - 06/29/18 4:40 pm (WEDNESDAY) [facility], [NON-STAFF] - Patient Instructions/Handouts: Heart Failure (DC), COPD (Chronic Obstructive Pulmonary Disease) (DC) Activity/Diet/Wound Care/Special Instructions: Carb consistent diet, 1500 mL fluid restriction Check blood pressure twice daily, if your top number is less than 120 do not take your hydralazine Check blood sugars before meals. If blood sugar is less than 120 administer 8 units of Admelog. If Blood sugar is 120-300 give 16 units or Admelog. If blood sugars is greater than 300 take 16 units of admelog and call Dr. Pratt's office. Check your weight daily. Discharge Disposition: HOME WITH HOME HEALTH SERVICES
[2018-06-22 11:44] LABS: Glucose,Whole Blood 95 mg/dL (75-99)
[2018-06-22] MEDS ORDERED: INSULIN DETEMIR (LEVEMIR) 100 UNIT/ML SYR SQ SCH (14:00)
--- NOTE | 2018-06-22 15:10 | P.PN ---
Subjective Progress Note Date: 06/22/18 This is a 47-year-old female who was seen in consultation by Dr. VC Winkler, she presented to the hospital with symptoms of shortness of breath. She has a known history of COPD, nicotine dependence, severe peripheral vascular disease with bilateral femoral-popliteal surgery, hypertension, diabetes, hyperlipidemia, and prior history of stroke. She presented to the hospital with symptoms of 2-3 day duration of worsening shortness of breath, positive PND and orthopnea. She is currently being treated for congestive cardiac failure exacerbation. Nephrology is following along and dosing diuretics accordingly. The patient did have a repeat chest x-ray yesterday which continued to show congestive heart failure. There was a decrease in the amount of pleural fluid. Blood pressure 130/70 with a heart rate in the 70s, 96 % on room air. White blood cell count 19.3, hemoglobin 7.6, platelet count 247. Sodium 139, potassium 4.8, BUN 47 and creatinine 2.3. Echocardiogram with Doppler study was performed which revealed an ejection fraction of 45-50%. Cannot exclude a possible bicuspid aortic valve. Severe mitral regurgitation. Overall the patient states she's feeling significantly better today. She still continues to have orthopnea. 06/22/2018 Patient was seen and examined this morning, overall feeling significantly better today. Currently on oral diuretics. Anticipating discharge home today. Blood pressure 92/60 with a heart rate in the 80s, 95% on room air. White blood cell count 16.6, hemoglobin 7.8, platelet count 238. Sodium 139, potassium 5.0, BUN 59 and creatinine 2.5. Objective - Vital Signs Vital signs: Vital Signs Temp 98.8 F 06/22/18 08:00 Pulse 83 06/22/18 08:00 Resp 16 06/22/18 08:00 BP 92/57 06/22/18 08:00 Pulse Ox 95 06/22/18 08:00 Intake & Output 06/21/18 06/22/18 06/22/18 18:59 06:59 18:59 Intake Total 670 290 240 Output Total 400 850 Balance 270 -560 240 Weight 73.7 kg Intake: IV 10 Invasive Line 1 10 Oral 660 290 240 Output: Urine 400 850 Other: Voiding Method Toilet Toilet # Voids 0 - Exam PHYSICAL EXAMINATION: GENERAL: 47-year-old female in no acute distress at the time of my examination HEENT: Head is atraumatic, normocephalic. Pupils equal, round. Sclera anicteric. Conjunctiva are clear. Mucous membranes of the mouth are moist. Neck is supple. There is no elevated jugular venous pressure. Bilateral carotid bruit is heard. HEART EXAMINATION: Heart S1-S2 evidence of a S3 gallop heard. CHEST EXAMINATION: Lungs reveal fine crackles bilaterally to the bases. ABDOMEN: Soft, nontender. Bowel sounds are heard. No organomegaly noted. EXTREMITIES: Faint peripheral pulses with no evidence of peripheral edema and no calf tenderness noted. NEUROLOGIC patient is awake, alert and oriented X3. . - Labs CBC & Chem 7: 06/22/18 05:34 06/22/18 05:34 Labs: Abnormal Lab Results - Last 24 Hours (Table) 06/21/18 06/22/18 06/22/18 Range/Units 20:33 05:34 05:34 WBC 16.6 H (3.8-10.6) k/uL RBC 2.50 L (3.80-5.40) m/uL Hgb 7.8 L (11.4-16.0) gm/dL Hct 25.1 L (34.0-46.0) % MCV 100.4 H (80.0-100.0) fL Chloride 112 H (98-107) mmol/L Carbon Dioxide 20 L (22-30) mmol/L BUN 59 H (7-17) mg/dL Creatinine 2.55 H (0.52-1.04) mg/dL Glucose 253 H (74-99) mg/dL POC Glucose (mg/dL) 235 H (75-99) mg/dL Calcium 8.3 L (8.4-10.2) mg/dL 06/22/18 Range/Units 06:05 WBC (3.8-10.6) k/uL RBC (3.80-5.40) m/uL Hgb (11.4-16.0) gm/dL Hct (34.0-46.0) % MCV (80.0-100.0) fL Chloride (98-107) mmol/L Carbon Dioxide (22-30) mmol/L BUN (7-17) mg/dL Creatinine (0.52-1.04) mg/dL Glucose (74-99) mg/dL POC Glucose (mg/dL) 266 H (75-99) mg/dL Calcium (8.4-10.2) mg/dL Microbiology - Last 24 Hours (Table) 06/18/18 20:06 Blood Culture - Preliminary Blood No Growth after 72 hours Assessment and Plan Plan: Assessment and plan #1 diastolic congestive heart failure acute on chronic #2 COPD exacerbation #3 severe peripheral vascular disease with bilateral carotid artery disease #4 hypertension #5 diabetes #6 acute on chronic kidney disease Plan Cardiology's perspective, patient may be able to be discharged home today. Follow-up appointment in the office. DNP note has been reviewed, I agree with a documented findings and plan of care. Patient was seen and examined.
[2018-06-22] MEDS ORDERED: hydrALAZINE HCL 25 MG TAB PO SCH (21:00)
--- NOTE | 2018-06-23 07:11 | PN ---
PROGRESS NOTE The patient is seen for followup for acute kidney injury and chronic kidney disease. She is comfortable. Patient denies any significant complaints. She wants to go home. Blood pressure this morning was 92/57, heart rate 83 per minute. She is afebrile. Examination of the heart S1, S2. Examination lungs bilateral breath sounds are heard. Decreased breath sounds at the bases. Abdomen is soft, nontender. Exam of lower extremities shows no evidence of edema. LABS: Show sodium 139, potassium 5.0, BUN 59, serum creatinine 2.5, hemoglobin 7.8 g/dL. ASSESSMENT: 1. Acute kidney injury associated with recent diuresis and blood pressure was also low this morning. The patient can be discharged from Nephrology standpoint. She will follow up as outpatient in about 1-2 weeks. 2. Hypertension. Partly volume sensitive and exacerbated from prednisone. Expect improvement with decreasing dose of steroids. 3. Chronic kidney disease and NKF stage IV secondary to diabetic kidney disease. Baseline creatinine about 2.2-2.3 mg/dL. 4. Anemia with no active bleeding noted. Maintained on Aranesp. The patient was iron replete. PLAN: Decrease hydralazine at time of discharge. Decrease prednisone. Monitor blood pressure at home. The patient will continue with the Norvasc, metoprolol, and lower dose of hydralazine for hypertension. She will also continue with the Lasix and we will keep her off of the hydrochlorothiazide and the Coreg for now. She should follow up in 1 week's time. MMODL / IJN: [id number] /
[2018-06-23] MEDS ORDERED: predniSONE 20 MG TAB PO SCH (09:00)
[2018-07-03] MEDS ORDERED: ERGOCALCIFEROL 50,000 UNIT CAP PO SCH (09:00)
== END 2018-06-22 12:28 | disposition home health service (06) | DRG 190 ==
LOC: EC 19:40 → OBSVTOIN 21:58 → 4MS4W 21:58 → 3SCARD 06-19 17:15 → UNDODISOB 06-22 12:28
PROVIDERS: ADMIT Internal Medicine; ATTEND Internal Medicine
DX: J44.1 Chronic obstructive pulmonary disease with (acute) exacerbation (principal); I50.43 Acute on chronic combined systolic (congestive) and diastolic (congestive) heart failure; J18.9 Pneumonia, unspecified organism; N18.4 Chronic kidney disease, stage 4 (severe); I13.0 Hypertensive heart and chronic kidney disease with heart failure and stage 1 through stage 4 chronic kidney disease, or unspecified chronic kidney disease; N17.9 Acute kidney failure, unspecified; C92.10 Chronic myeloid leukemia, BCR/ABL-positive, not having achieved remission; E11.22 Type 2 diabetes mellitus with diabetic chronic kidney disease; J44.0 Chronic obstructive pulmonary disease with (acute) lower respiratory infection; J20.9 Acute bronchitis, unspecified; D63.8 Anemia in other chronic diseases classified elsewhere; F17.200 Nicotine dependence, unspecified, uncomplicated; F32.9 Major depressive disorder, single episode, unspecified; F41.9 Anxiety disorder, unspecified; I34.0 Nonrheumatic mitral (valve) insufficiency; E11.65 Type 2 diabetes mellitus with hyperglycemia; M89.9 Disorder of bone, unspecified; E11.51 Type 2 diabetes mellitus with diabetic peripheral angiopathy without gangrene; I65.23 Occlusion and stenosis of bilateral carotid arteries; E87.5 Hyperkalemia; E78.5 Hyperlipidemia, unspecified; Z88.0 Allergy status to penicillin; Z91.030 Bee allergy status; Z79.02 Long term (current) use of antithrombotics/antiplatelets; Z79.82 Long term (current) use of aspirin; Z79.51 Long term (current) use of inhaled steroids; Z79.2 Long term (current) use of antibiotics; Z79.899 Other long term (current) drug therapy; Z80.3 Family history of malignant neoplasm of breast; Z86.73 Personal history of transient ischemic attack (TIA), and cerebral infarction without residual deficits; Z71.6 Tobacco abuse counseling
CPT/HCPCS: 36415; 71046; 80048; 80053; 82550; 82553; 83036; 83540; 83550; 83605; 83735; 83880; 84484; 85025; 85027; 85610; 85730; 87040; 87502; 93005; 93306; 94640; 94760; 96365; 96366; 96372; 96375; 96376; 99285

== ENCOUNTER 2018-07-02 14:12 | Inpatient (IN) | payer OTHER ==
[2018-07-02] MEDS ORDERED: LORazepam 2 MG/ML INJ IV STA (14:37)
[2018-07-02] MEDS ORDERED: IPRATROPIUM-ALBUTEROL 3 ML NEB INHALATION STA ×2 (14:37→15:20)
[2018-07-02] MEDS ORDERED: SODIUM CHLORIDE 0.9% 500 ML 500 ML IV STA (14:37)
[2018-07-02] MEDS ORDERED: SODIUM CHLORIDE 0.9% 1,000 ML IV STA (14:37)
--- NOTE | 2018-07-02 14:40 | ED ---
Recheck HPI <Raz Longo - Last Filed: 07/02/18 17:10> - General Source: patient, RN notes reviewed, old records reviewed Mode of arrival: ambulatory Limitations: no limitations <BamAlyssa - Last Filed: 07/02/18 17:23> - General Chief Complaint: Recheck/Abnormal Lab/Rx Stated Complaint: ALEENA Time Seen by Provider: 07/02/18 14:28 - History of Present Illness Initial Comments: Patient is a 39-year-old female presents emergency department today with complaints of difficulty in breathing and bilateral leg pain and swelling. Onset of 4 AM. Patient reports that she was recently admitted to the hospital diagnosed with pneumonia. 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 Becerril for cardiology. She complains of chest pain. Patient states that she' s been doing breathing treatments. She reports today she decided to quit smoking and started to take Chantix. Patient states that she has had no nausea or vomiting. She denies any change in stools. (Alyssa Kuhn) - Related Data Home Medications Medication Instructions Recorded Confirmed Clopidogrel Bisulfate [Plavix] 75 mg PO DAILY 01/21/15 07/02/18 Ergocalciferol (Vitamin D2) 50,000 unit PO DIRECTED 01/21/15 07/02/18 [Drisdol] Ferrous Sulfate [Iron (65 MG 325 mg PO DAILY 01/21/15 07/02/18 Elemental)] Loratadine [Claritin] 10 mg PO DAILY 01/21/15 07/02/18 lamoTRIgine [LaMICtal] 25 mg PO BID 01/21/15 07/02/18 Albuterol Inhaler [Ventolin Hfa 1 - 2 puff INHALATION RT-Q6H PRN 06/30/17 Inhaler] Atorvastatin [Lipitor] 80 mg PO HS 06/30/17 07/02/18 Citalopram Hydrobromide [CeleXA] 20 mg PO DAILY 06/30/17 07/02/18 Aspirin EC [Ecotrin Low Dose] 81 mg PO DAILY 06/18/18 07/02/18 Famotidine [Pepcid] 40 mg PO DAILY 06/18/18 07/02/18 Tiotropium [place] [Spiriva 2 spray INHALATION RT-HS 06/18/18 07/02/18 Respimat] amLODIPine [Norvasc] 10 mg PO DAILY 06/18/18 07/02/18 Albuterol Nebulized [Ventolin 2.5 mg INHALATION RT-Q6H PRN 07/02/18 07/02/18 Nebulized] Varenicline Tartrate [Chantix 0.5 mg PO DIRECTED 07/02/18 07/02/18 Starter Pack] glipiZIDE [Glucotrol] 5 mg PO BID 07/02/18 07/02/18 hydrALAZINE HCL 25 mg PO BID PRN 07/02/18 07/02/18 Previous Rx's Medication Instructions Recorded Furosemide [Lasix] 60 mg PO BID@0900,1600 #60 tab 06/22/18 Isosorbide Mononitrate ER [Imdur] 60 mg PO DAILY #30 tab.er.24h 06/22/18 Metoprolol Succinate (ER) [Toprol 50 mg PO DAILY #30 tab.er.24h 06/22/18 XL] Allergies Allergy/AdvReac Type Severity Reaction Status Date / Time bee venom protein (honey bee) Allergy Rash/Hives Verified 07/02/18 16:06 Penicillins Allergy Rash/Hives Verified 07/02/18 16:06 Review of Systems ROS Other: All systems not noted in ROS Statement are negative. <Raz Longo - Last Filed: 07/02/18 17:10> ROS Other: All systems not noted in ROS Statement are negative. <Alyssa Kuhn - Last Filed: 07/02/18 17:23> ROS Statement: Those systems with pertinent positive or pertinent negative responses have been documented in the HPI. Past Medical History Past Medical History: COPD, CVA/TIA, Diabetes Mellitus, Hyperlipidemia, Hypertension, Renal Disease, Vascular Disorder Additional Past Medical History / Comment(s): Leukemia. History of Any Multi-Drug Resistant Organisms: None Reported Past Surgical History: Appendectomy, Bowel Resection, Orthopedic Surgery, Tubal Ligation Additional Past Surgical History / Comment(s): Hx of colostomy and reversal, rotator cuff repair on Left,hx of bifem bypass. Colonoscopy 2012 Past Anesthesia/Blood Transfusion Reactions: No Reported Reaction Past Psychological History: Anxiety, Depression Smoking Status: Heavy tobacco smoker Past Alcohol Use History: None Reported Past Drug Use History: Marijuana - Past Family History Mother Family Medical History: No Reported History, Congestive Heart Failure (CHF), Diabetes Mellitus Brother(s) Additional Family Medical History / Comment(s): CABG Sister(s) Family Medical History: CVA/TIA Additional Family Medical History / Comment(s): Maternal aunt had breast cancer. <Alyssa Kuhn - Last Filed: 07/02/18 17:23> General Exam <DontaRaz - Last Filed: 07/02/18 17:10> Limitations: no limitations General appearance: alert, in no apparent distress Head exam: Present: atraumatic Eye exam: Present: normal appearance, PERRL, EOMI. Absent: scleral icterus, conjunctival injection, periorbital swelling ENT exam: Present: normal exam, mucous membranes moist Neck exam: Present: normal inspection. Absent: tenderness, meningismus, lymphadenopathy Respiratory exam: Present: wheezes, decreased breath sounds. Absent: normal lung sounds bilaterally, respiratory distress, rales, rhonchi, stridor Cardiovascular Exam: Present: regular rate, normal rhythm, normal heart sounds. Absent: systolic murmur, diastolic murmur, rubs, gallop, clicks GI/Abdominal exam: Present: soft, normal bowel sounds. Absent: distended, tenderness, guarding, rebound, rigid Extremities exam: Present: normal inspection, full ROM, normal capillary refill , pedal edema, other (Bilateral 2+ pitting edema.). Absent: tenderness, joint swelling, calf tenderness Back exam: Present: normal inspection Neurological exam: Present: alert, oriented X3, CN II-XII intact Psychiatric exam: Present: normal affect, normal mood Skin exam: Present: warm, dry, intact, normal color. Absent: rash <Alyssa Kuhn - Last Filed: 07/02/18 17:23> - General Exam Comments Initial Comments: 47-year-old female. Patient somewhat anxious. She appears older than stated age. (Alyssa Kuhn) Course <Raz Longo - Last Filed: 07/02/18 17:10> <Alyssa Kuhn - Last Filed: 07/02/18 17:23> Vital Signs 07/02/18 07/02/18 07/02/18 14:13 15:08 15:18 Temperature 98.3 F Pulse Rate 100 100 102 H Respiratory 18 Rate Blood Pressure 101/61 O2 Sat by Pulse 90 L Oximetry 07/02/18 07/02/18 07/02/18 15:28 15:41 16:05 Temperature Pulse Rate 100 98 98 Respiratory 40 H Rate Blood Pressure O2 Sat by Pulse 88 L Oximetry 07/02/18 07/02/18 16:22 16:38 Temperature 98.7 F Pulse Rate 97 93 Respiratory 36 H 32 H Rate Blood Pressure 109/73 94/66 O2 Sat by Pulse 99 99 Oximetry - Reevaluation(s) Reevaluation #1: 07/02/18 17:11 PA supervision: I proceeded [id number] evaluation and several occasions the patient she did present with complaints of shortness of breath this started at 4 AM this morning she does have evidence of pulmonary edema/CHF she is on BiPAP currently. She states she is feeling better after BiPAP was administered. I did discuss the case with Dr. Johnson. The patient will be admitted with consultation by cardiology and pulmonary medicine (Raz Longo) Medical Decision Making - Lab Data Result diagrams: 07/02/18 14:30 07/02/18 14:30 <Raz Longo - Last Filed: 07/02/18 17:10> - Lab Data Result diagrams: 07/02/18 14:30 07/02/18 14:30 - Radiology Data Radiology results: report reviewed <Alyssa Kuhn - Last Filed: 07/02/18 17:23> - Medical Decision Making 47-year-old female presents emergency department today with acute worsening shortness of breath. Patient was recently admitted for pneumonia fluid overload. At this time Patient is found to be in respiratory distress. After DuoNeb treatments for initial wheezing. Patient continued to be labored in breathing. She was started on BiPAP. Chest x-ray shows mild CHF exacerbation. BNP is elevated at this time at 10,000. This is increased from her previous admission. She does have an elevated white blood cell count. I did give the Patient 1 g of Rocephin to cover for pneumonia. Patient will be admitted this time with consult to cardiology and pulmonology. Patient will be remaining on BiPAP. Patient did have a positive d-dimer test. She complains of bilateral leg pain. Doppler ultrasound was completed.. (Alyssa Kuhn) - Lab Data Lab Results 03/02/19 03/02/19 03/02/19 Range/Units 14:30 14:30 14:30 WBC 15.9 H (3.8-10.6) k/uL RBC 2.79 L (3.80-5.40) m/uL Hgb 8.8 L (11.4-16.0) gm/dL Hct 27.3 L (34.0-46.0) % MCV 98.0 (80.0-100.0) fL MCH 31.6 (25.0-35.0) pg MCHC 32.2 (31.0-37.0) g/dL RDW 15.7 H (11.5-15.5) % Plt Count 232 (150-450) k/uL Neutrophils % 90 % Lymphocytes % 3 % Monocytes % 3 % Eosinophils % 3 % Basophils % 0 % Neutrophils # 14.2 H (1.3-7.7) k/uL Lymphocytes # 0.5 L (1.0-4.8) k/uL Monocytes # 0.6 (0-1.0) k/uL Eosinophils # 0.5 (0-0.7) k/uL Basophils # 0.0 (0-0.2) k/uL Macrocytosis Slight PT 10.6 (9.0-12.0) sec INR 1.0 (<1.2) APTT 27.7 (22.0-30.0) sec D-Dimer 0.67 H (<0.60) mg/L FEU Sodium 139 (137-145) mmol/L Potassium 4.3 (3.5-5.1) mmol/L Chloride 107 (98-107) mmol/L Carbon Dioxide 23 (22-30) mmol/L Anion Gap 9 mmol/L BUN 48 H (7-17) mg/dL Creatinine 2.10 H (0.52-1.04) mg/dL Est GFR (CKD-EPI)AfAm 31 (>60 ml/min/1.73 sqM) Est GFR (CKD-EPI)NonAf 27 (>60 ml/min/1.73 sqM) Glucose 84 (74-99) mg/dL Calcium 8.2 L (8.4-10.2) mg/dL Magnesium 1.8 (1.6-2.3) mg/dL Total Bilirubin 0.6 (0.2-1.3) mg/dL AST 28 (14-36) U/L ALT 59 H (9-52) U/L Alkaline Phosphatase 97 (38-126) U/L Troponin I (0.000-0.034) ng/mL NT-Pro-B Natriuret Pep pg/mL Total Protein 5.6 L (6.3-8.2) g/dL Albumin 3.2 L (3.5-5.0) g/dL 07/02/18 07/02/18 Range/Units 14:30 14:30 WBC (3.8-10.6) k/uL RBC (3.80-5.40) m/uL Hgb (11.4-16.0) gm/dL Hct (34.0-46.0) % MCV (80.0-100.0) fL MCH (25.0-35.0) pg MCHC (31.0-37.0) g/dL RDW (11.5-15.5) % Plt Count (150-450) k/uL Neutrophils % % Lymphocytes % % Monocytes % % Eosinophils % % Basophils % % Neutrophils # (1.3-7.7) k/uL Lymphocytes # (1.0-4.8) k/uL Monocytes # (0-1.0) k/uL Eosinophils # (0-0.7) k/uL Basophils # (0-0.2) k/uL Macrocytosis PT (9.0-12.0) sec INR (<1.2) APTT (22.0-30.0) sec D-Dimer (<0.60) mg/L FEU Sodium (137-145) mmol/L Potassium (3.5-5.1) mmol/L Chloride (98-107) mmol/L Carbon Dioxide (22-30) mmol/L Anion Gap mmol/L BUN (7-17) mg/dL Creatinine (0.52-1.04) mg/dL Est GFR (CKD-EPI)AfAm (>60 ml/min/1.73 sqM) Est GFR (CKD-EPI)NonAf (>60 ml/min/1.73 sqM) Glucose (74-99) mg/dL Calcium (8.4-10.2) mg/dL Magnesium (1.6-2.3) mg/dL Total Bilirubin (0.2-1.3) mg/dL AST (14-36) U/L ALT (9-52) U/L Alkaline Phosphatase (38-126) U/L Troponin I 0.015 (0.000-0.034) ng/mL NT-Pro-B Natriuret Pep 90458 pg/mL Total Protein (6.3-8.2) g/dL Albumin (3.5-5.0) g/dL 07/02/18 14:47 EKG shows normal sinus rhythm right axis deviation. Pulmonary disease pattern. Septal infarct age undetermined. Abnormal EKG. Ventricular rate 99 bpm. NM interval is 160 ms. QRS ration 86 ms. QT QTc is 350/459 ms. (Alyssa Kuhn) - Radiology Data Chest x-ray shows mild congestive heart failure and takes compared to last exam. Small pleural effusions. (Alyssa Kuhn) Disposition <Raz Longo - Last Filed: 07/02/18 17:10> Is patient prescribed a controlled substance at d/c from ED?: No Time of Disposition: 17:23 <Alyssa Kuhn - Last Filed: 07/02/18 17:23> Clinical Impression: CHF (congestive heart failure), Dyspnea, Elevated d-dimer Disposition: ADMITTED IP TO THIS HOSP Condition: Stable Referrals: Tamika Pratt MD [Primary Care Provider] - 1-2 days
[2018-07-02 14:48] LABS: Basophils % (A) 0 %; Eosinophils # (A) 0.5 k/uL (0-0.7); Eosinophils % (A) 3 %; HCT 27.3 % (34.0-46.0); HGB 8.8 gm/dL (11.4-16.0); Lymphocytes # (A) 0.5 k/uL (1.0-4.8); Lymphocytes % (A) 3 %; MCH 31.6 pg (25.0-35.0); MCHC 32.2 g/dL (31.0-37.0); Macrocytosis Slight; Mean Platelet Volume 8.3; Monocytes # (A) 0.6 k/uL (0-1.0); Monocytes % (A) 3 %; Neutrophils # (A) 14.2 k/uL (1.3-7.7); Neutrophils % (A) 90 %; Platelet Count 232 k/uL (150-450); RBC 2.79 m/uL (3.80-5.40); RDW 15.7 % (11.5-15.5); WBC 15.9 k/uL (3.8-10.6)
[2018-07-02] MEDS ORDERED: methylPREDNISolone SOD SUCCI 125 MG/2 ML VIAL IV STA (14:48)
[2018-07-02 15:03] LABS: Albumin 3.2 g/dL (3.5-5.0); Calcium 8.2 mg/dL (8.4-10.2); Magnesium 1.8 mg/dL (1.6-2.3); Potassium 4.3 mmol/L (3.5-5.1); Total Bilirubin 0.6 mg/dL (0.2-1.3); Total Protein 5.6 g/dL (6.3-8.2)
[2018-07-02 15:04] LABS: Partial Thromboplastin Time 27.7 sec (22.0-30.0); Prothrombin Time 10.6 sec (9.0-12.0)
[2018-07-02 15:08] LABS: D-Dimer 0.67 mg/L FEU (<0.60)
[2018-07-02] MEDS ORDERED: FUROSEMIDE 10 MG/ML 10 ML VIAL IV STA (15:59)
--- NOTE | 2018-07-02 16:04 | XR ---
EXAMINATION TYPE: XR chest 2V DATE OF EXAM: 07/02/2018 COMPARISON: 06/21/2018 HISTORY: Short of breath TECHNIQUE: Frontal and lateral views of the chest are obtained. FINDINGS: There is pulmonary vascular mild congestion. There is slight blunting of the costophrenic angles. There is fluid in the major fissures. Bony thorax is intact. IMPRESSION: Mild congestive heart failure unchanged compared to last exam. Small pleural effusions.
[2018-07-02] MEDS ORDERED: cefTRIAXone IN SWFI 1,000 MG/10 ML SYRINGE IVP STA (16:13)
--- NOTE | 2018-07-02 17:29 | US ---
EXAMINATION TYPE: US venous doppler duplex LE BI DATE OF EXAM: 07/02/2018 5:10 PM COMPARISON: US CLINICAL HISTORY: Pain. Difficulty breathing, bilateral calf pain. SIDE PERFORMED: Bilateral TECHNIQUE: The lower extremity deep venous system is examined utilizing real time linear array sonog hillary with graded compression, doppler sonography and color-flow sonography. VESSELS IMAGED: External Iliac Vein (EIV) Common Femoral Vein Deep Femoral Vein Greater Saphenous Vein * Femoral Vein Popliteal Vein Proximal Calf Veins (* superficial vessels) Right Leg: Negative for DVT Left Leg: Negative for DVT IMPRESSION: Negative bilateral leg duplex venous sonogram. No evidence of deep venous thrombosis.
[2018-07-02] MEDS ORDERED: hydrALAZINE HCL 25 MG TAB PO PRN (18:12)
[2018-07-02] MEDS ORDERED: NALOXONE 0.4 MG/ML 1 ML VIAL IV PRN (18:14)
[2018-07-02] MEDS ORDERED: MORPHINE SULFATE 2 MG/ML SYRINGE IV PRN (18:14)
[2018-07-02] MEDS ORDERED: ACETAMINOPHEN TAB 325 MG TAB PO PRN (18:14)
[2018-07-02] MEDS ORDERED: IPRATROPIUM-ALBUTEROL 3 ML NEB INHALATION PRN (18:14)
[2018-07-02 18:38] LABS: Appearance,Urine Clear (Clear); Bacteria,Urine Rare /hpf; Bilirubin,Urine Negative (Negative); Blood,Urine Trace (Negative); Color,Urine Light Yellow; Glucose,Urine (UA) Negative (Negative); Ketones,Urine Negative (Negative); Leukocyte Esterase,Urine Negative (Negative); Mucus,Urine Rare /hpf; Nitrite,Urine Negative (Negative); PH, Urine 5.5 (5.0-8.0); Protein,Urine 2+ (Negative); RBC,Urine 3 /hpf (0-5); Specific Gravity,Urine 1.007 (1.001-1.035); Squamous Epithelial Cell,Urine 2 /hpf (0-4); Urobilinogen,Urine <2.0 mg/dL (<2.0); WBC,Urine 1 /hpf (0-5)
--- NOTE | 2018-07-02 18:59 | P.HPIM ---
History of Present Illness H&P Date: 07/02/18 Chief Complaint: SOB 47-year-old female with PMH of COPD, history of TIA, diabetes mellitus, hypertension, CKD resents to the ED for shortness of breath and lower jovanna swelling. History is obtained from the patient and is limited as she is on continuous BiPAP at this time. Patient reports waking up around 4 AM with an acute onset of shortness of breath. She was recently discharged on June 24, 2018 for treatment of COPD And CHF.Patient reports compliance with her medications since discharge. She recently obtained a prescription for Chantix in an attempt to quit smoking. Patient reports chest pain, described as rib pain, only with deep inspiration. She reports a dry cough and a headache at this time. She denies any nausea, vomiting, fever, chills, palpitations, changes in urination or bowel habits. No changes in appetite or weight. No numbness, tingling, weakness of the extremities. She denies any dizziness. Of note, patient does report whole body aches. In the ED, patient was noted to be tachypneic and saturating 88% on room air. She was placed on BiPAP. CBC showed a leukocytosis of 15.9 and hemoglobin of 8.8. Coagulation panel was negative. D-dimer was elevated at 0.67. CMP showed a BUNs of 48, creatinine of 2.10. Initial troponin was 0.015, EKG. BNP was 10,200, with chest x-ray showing mild congestive heart failure and small pleural effusion. Venous duplex is negative for DVT. Patient is admitted COPD and CHF exacerbation. Pulmonology and cardiology is on consult. Review of Systems All systems: negative Past Medical History Past Medical History: COPD, CVA/TIA, Diabetes Mellitus, Hyperlipidemia, Hypertension, Renal Disease, Vascular Disorder Additional Past Medical History / Comment(s): Leukemia. History of Any Multi-Drug Resistant Organisms: None Reported Past Surgical History: Appendectomy, Bowel Resection, Orthopedic Surgery, Tubal Ligation Additional Past Surgical History / Comment(s): Hx of colostomy and reversal, rotator cuff repair on Left,hx of bifem bypass. Colonoscopy 2012 Past Anesthesia/Blood Transfusion Reactions: No Reported Reaction Past Psychological History: Anxiety, Depression Smoking Status: Heavy tobacco smoker Past Alcohol Use History: None Reported Past Drug Use History: Marijuana - Past Family History Mother Family Medical History: No Reported History, Congestive Heart Failure (CHF), Diabetes Mellitus Brother(s) Additional Family Medical History / Comment(s): CABG Sister(s) Family Medical History: CVA/TIA Additional Family Medical History / Comment(s): Maternal aunt had breast cancer. Medications and Allergies Home Medications Medication Instructions Recorded Confirmed Type Clopidogrel Bisulfate [Plavix] 75 mg PO DAILY 01/21/15 07/02/18 History Ergocalciferol (Vitamin D2) 50,000 unit PO DIRECTED 01/21/15 07/02/18 History [Drisdol] Ferrous Sulfate [Iron (65 MG 325 mg PO DAILY 01/21/15 07/02/18 History Elemental)] Loratadine [Claritin] 10 mg PO DAILY 01/21/15 07/02/18 History lamoTRIgine [LaMICtal] 25 mg PO BID 01/21/15 07/02/18 History Albuterol Inhaler [Ventolin Hfa 1 - 2 puff INHALATION RT-Q6H PRN 06/30/17 History Inhaler] Atorvastatin [Lipitor] 80 mg PO HS 06/30/17 07/02/18 History Citalopram Hydrobromide [CeleXA] 20 mg PO DAILY 06/30/17 07/02/18 History Aspirin EC [Ecotrin Low Dose] 81 mg PO DAILY 06/18/18 07/02/18 History Famotidine [Pepcid] 40 mg PO DAILY 06/18/18 07/02/18 History Tiotropium [place] [Spiriva 2 spray INHALATION RT-HS 06/18/18 07/02/18 History Respimat] amLODIPine [Norvasc] 10 mg PO DAILY 06/18/18 07/02/18 History Furosemide [Lasix] 60 mg PO BID@0900,1600 #60 tab 06/22/18 07/02/18 Rx Isosorbide Mononitrate ER [Imdur] 60 mg PO DAILY #30 tab.er.24h 06/22/18 Rx Metoprolol Succinate (ER) [Toprol 50 mg PO DAILY #30 tab.er.24h 06/22/18 Rx XL] Albuterol Nebulized [Ventolin 2.5 mg INHALATION RT-Q6H PRN 07/02/18 07/02/18 History Nebulized] Varenicline Tartrate [Chantix 0.5 mg PO DIRECTED 07/02/18 07/02/18 History Starter Pack] glipiZIDE [Glucotrol] 5 mg PO BID 07/02/18 07/02/18 History hydrALAZINE HCL 25 mg PO BID PRN 07/02/18 07/02/18 History Allergies Allergy/AdvReac Type Severity Reaction Status Date / Time bee venom protein (honey bee) Allergy Rash/Hives Verified 07/02/18 16:06 Penicillins Allergy Rash/Hives Verified 07/02/18 16:06 Physical Exam Vitals: Vital Signs Temp Pulse Resp BP Pulse Ox 07/02/18 18:19 97.7 F 92 33 H 99/71 100 07/02/18 17:30 89 34 H 100/67 98 07/02/18 16:38 93 32 H 94/66 99 07/02/18 16:22 98.7 F 97 36 H 109/73 99 07/02/18 16:05 98 40 H 88 L 07/02/18 15:41 98 07/02/18 15:28 100 07/02/18 15:18 102 H 07/02/18 15:08 100 07/02/18 14:13 98.3 F 100 18 101/61 90 L Intake and Output 07/02/18 07/02/18 07/02/18 06:59 14:59 22:59 Other: Weight 72.575 kg General: [non toxic], [tachypnea, BiPAP, labored respirations], [appears at stated age] Derm: [warm], [dry] Head: [atraumatic], [normocephalic], [symmetric] Eyes: [EOMI], [no lid lag], [anicteric sclera] Mouth: [no lip lesion], [mucus membranes moist] Cardiovascular: [S1S2 reg], [no murmur], [positive posterior tibial pulse bilateral], Lungs: [Decreased breath sounds bilateral with mild wheezing end expiratory], [ no rhonchi, no rales] , [no accessory muscle use] Abdominal: [soft], [ nontender to palpation], [no guarding], [no appreciable organomegaly] Ext: [no gross muscle atrophy], [no edema], [no contractures] Neuro: [ CN II-XI grossly intact], [no focal neuro deficits] Psych: [Alert], [oriented], [appropriate affect] Results CBC & Chem 7: 07/02/18 14:30 07/02/18 14:30 Labs: Abnormal Lab Results - Last 24 Hours (Table) 07/02/18 07/02/18 07/02/18 Range/Units 14:30 14:30 14:30 WBC 15.9 H (3.8-10.6) k/uL RBC 2.79 L (3.80-5.40) m/uL Hgb 8.8 L (11.4-16.0) gm/dL Hct 27.3 L (34.0-46.0) % RDW 15.7 H (11.5-15.5) % Neutrophils # 14.2 H (1.3-7.7) k/uL Lymphocytes # 0.5 L (1.0-4.8) k/uL D-Dimer 0.67 H (<0.60) mg/L FEU BUN 48 H (7-17) mg/dL Creatinine 2.10 H (0.52-1.04) mg/dL Calcium 8.2 L (8.4-10.2) mg/dL ALT 59 H (9-52) U/L Total Protein 5.6 L (6.3-8.2) g/dL Albumin 3.2 L (3.5-5.0) g/dL Urine Protein (Negative) Urine Blood (Negative) Urine Bacteria (None) /hpf Urine Mucus (None) /hpf 07/02/18 Range/Units 18:15 WBC (3.8-10.6) k/uL RBC (3.80-5.40) m/uL Hgb (11.4-16.0) gm/dL Hct (34.0-46.0) % RDW (11.5-15.5) % Neutrophils # (1.3-7.7) k/uL Lymphocytes # (1.0-4.8) k/uL D-Dimer (<0.60) mg/L FEU BUN (7-17) mg/dL Creatinine (0.52-1.04) mg/dL Calcium (8.4-10.2) mg/dL ALT (9-52) U/L Total Protein (6.3-8.2) g/dL Albumin (3.5-5.0) g/dL Urine Protein 2+ H (Negative) Urine Blood Trace H (Negative) Urine Bacteria Rare H (None) /hpf Urine Mucus Rare H (None) /hpf Thrombosis Risk Factor Assmnt - Choose All That Apply Any of the Below Risk Factors Present?: Yes Each Factor Represents 1 point: Abnormal pulmonary function (COPD), Age 41-60 years, Heart failure (<1month), Obesity (BMI >25) Thrombosis Risk Factor Assessment Total Risk Factor Score: 4 Thrombosis Risk Factor Assessment Level: Moderate Risk Assessment and Plan Assessment: Assessment and Plan 1. Acute on chronic hypoxic respiratory failure 2. COPD exacerbation 3. CHF exacerbation 4. Anemia 5. Leukocytosis 6. Elevated d-dimer 7. CK D 8. History of TIA 9. Diabetes mellitus 1. Multifactorial. Combination of COPD and CHF exacerbation. Optimize cardiac medications, start diuresis with Lasix IV. Optimize COPD medications. O2 per nasal cannula to maintain an O2 saturation greater than 92%, BiPAP as needed. Chest x-ray showing signs of mild CHF. Telemetry monitoring. Will follow influenza PCR. Trend 2 troponin/EKG to rule out ACS. Will follow pulmonology and cardiology recommendations. 2. Continue DuoNeb 4 times a day scheduled and as needed for shortness of breath or wheezing. Start prednisone 40 mg by mouth daily. Will follow pulmonology recommendations. 3. BNP greater than 10,000 with chest x-ray showing findings of pleural effusion and mild CHF. Continue diuresis with Lasix 60 mg IV twice a day. Continue beta chau. Strict ins and outs. Daily weights. Telemetry monitoring. Keep potassium greater than 4 and magnesium greater than 2. Will follow cardiology recommendations. 4. Hemoglobin 8.8, normocytic. Stable since previous admission. Likely anemia chronic disease secondary to multiple core morbidities. Continue iron sulfate supplementation. Daily CBC. Transfuse if hemoglobin less than 7. 5. Patient is afebrile with a leukocytosis of 15.9 with neutrophilia. This is likely secondary to steroid use. She has no signs of infection. Chest x-ray shows no pneumonia. Daily CBC. We will continue to monitor clinically. 6. D-dimer 0.67, baseline is less than 0.60. No concerns for PE at this time. Likely secondary to CHF and CK D. We will continue to monitor clinically. 7. BUN of 48, creatinine of 2.10, stable from previous admission. Daily BMP. Avoid nephrotoxins. 8. Continue aspirin, Plavix and Lipitor. 9. A1c of 9.0 on previous admission. Insulin sliding scale. Hypoglycemic precautions. Regular Accu-Cheks. Patient admitted for respiratory failure, component of CHF and COPD. Pulmonology and cardiology is on [place]. Diuresing with Lasix IV and giving DuoNeb [id number]. Patient is pending clinical improvement. Patient readmitted rates that she would like to remain full code.
[2018-07-02] MEDS: IPRATROPIUM-ALBUTEROL 3 ML NEB INHALATION SCH (19:44)
[2018-07-02 20:42] LABS: Glucose,Whole Blood 219 mg/dL (75-99)
[2018-07-02] MEDS: SODIUM CHLORIDE 0.9% 1,000 ML IV SCH (20:42)
[2018-07-02] MEDS: lamoTRIgine 25 MG TAB PO SCH (21:03)
[2018-07-02] MEDS: ATORVASTATIN 80 MG TAB PO SCH (21:03)
[2018-07-02] MEDS: HYDROcodone/APAP 5-325MG 1 EACH TAB PO PRN (21:03)
[2018-07-02] MEDS: INSULIN ASPART (NovoLOG) 100 UNIT/ML VIAL SQ SCH (21:13)
[2018-07-02] MEDS: FUROSEMIDE 10 MG/ML 4 ML VIAL IV SCH (23:35)
[2018-07-03 03:25] LABS: Basophils % (A) 0 %; Eosinophils % (A) 0 %; HCT 25.4 % (34.0-46.0); HGB 8.2 gm/dL (11.4-16.0); Hypochromasia Slight; Lymphocytes # (A) 0.2 k/uL (1.0-4.8); Lymphocytes % (A) 2 %; MCH 33.4 pg (25.0-35.0); MCHC 32.2 g/dL (31.0-37.0); Macrocytosis Moderate; Mean Platelet Volume 7.6; Monocytes # (A) 0.2 k/uL (0-1.0); Monocytes % (A) 1 %; Neutrophils # (A) 13.6 k/uL (1.3-7.7); Neutrophils % (A) 97 %; Platelet Count 206 k/uL (150-450); RBC 2.45 m/uL (3.80-5.40); RDW 15.6 % (11.5-15.5)
[2018-07-03 03:27] LABS: MCV 103.5 fL (80.0-100.0)
[2018-07-03 03:39] LABS: Calcium 7.8 mg/dL (8.4-10.2); Potassium 5.2 mmol/L (3.5-5.1)
[2018-07-03 06:18] LABS: Glucose,Whole Blood 471 mg/dL (75-99)
[2018-07-03] MEDS ORDERED: INSULIN ASPART (NovoLOG) 100 UNIT/ML VIAL SQ ONE ×2 (06:25→17:19)
[2018-07-03] MEDS: INSULIN ASPART (NovoLOG) 100 UNIT/ML VIAL SQ SCH ×5 (06:25→17:15)
[2018-07-03] MEDS ORDERED: INSULIN ASPART (NovoLOG) 100 UNIT/ML VIAL SQ SCH (07:30)
[2018-07-03] MEDS: IPRATROPIUM-ALBUTEROL 3 ML NEB INHALATION SCH ×4 (08:28→20:52)
[2018-07-03] MEDS: METOPROLOL SUCCINATE (ER) 50 MG TAB.ER.24H PO SCH (08:28)
[2018-07-03] MEDS: amLODIPine 10 MG TAB PO SCH (08:29)
[2018-07-03] MEDS: predniSONE 20 MG TAB PO SCH (08:29)
[2018-07-03] MEDS: lamoTRIgine 25 MG TAB PO SCH ×2 (08:29→19:39)
[2018-07-03] MEDS: FERROUS SULFATE 325 MG TAB PO SCH (08:29)
[2018-07-03] MEDS: CLOPIDOGREL 75 MG TAB PO SCH (08:29)
[2018-07-03] MEDS: ASPIRIN 81 MG PO SCH (08:29)
[2018-07-03] MEDS: ISOSORBIDE MONONITRATE ER 60 MG TAB.ER.24H PO SCH (08:29)
[2018-07-03] MEDS: CITALOPRAM HYDROBROMIDE 20 MG TAB PO SCH (08:29)
[2018-07-03] MEDS: FUROSEMIDE 10 MG/ML 4 ML VIAL IV SCH ×3 (08:29→23:13)
[2018-07-03 09:07] LABS: Glucose,Whole Blood 525 mg/dL (75-99)
[2018-07-03] MEDS: LEVOFLOXACIN 250 MG TAB PO SCH (11:06)
--- NOTE | 2018-07-03 11:29 | P.PN ---
Subjective Progress Note Date: 07/03/18 Principal diagnosis: COPD exacerbation, CHF exacerbation 47-year-old female with PMH of COPD, history of TIA, diabetes mellitus, hypertension, CKD resents to the ED for shortness of breath and lower extremity swelling. Patient was seen and examined. No acute events overnight. Patient reports great improvement in her breathing, temporarily taken off BiPAP this morning. Patient reports that her symptoms may have started after smoking some marijuana. She reports symptoms of sleep apnea, waking up in the middle of the night gasping for air. She denies any chest pain, palpitations or dizziness. No nausea or vomiting. No fever or chills. In the ED, patient was noted to be tachypneic and saturating 88% on room air. She was placed on BiPAP. CBC showed a leukocytosis of 15.9 and hemoglobin of 8.8. Coagulation panel was negative. D-dimer was elevated at 0.67. CMP showed a BUN of 48, creatinine of 2.10. Initial troponin was 0.015, EKG. BNP was 10,200, with chest x-ray showing mild congestive heart failure and small pleural effusion. Patient is admitted for CHF and COPD exacerbation with pulmonology and cardiology on consult. Patient was started on Lasix 60 mg IV twice a day for diuresis and was given DuoNeb treatments every 4 hours scheduled and as needed for shortness of breath and wheezing. Patient was seen and examined this morning. No acute events overnight. Patient reports considerable improvement in her breathing, temporarily taken off BiPAP this morning. She denies any chest pain, shortness of breath or palpitations. She is saturating high 90s on 4 L nasal cannula. Objective - Vital Signs Vital signs: Vital Signs Temp 98.2 F 07/03/18 08:25 Pulse 92 07/03/18 08:38 Resp 20 07/03/18 08:25 BP 131/60 07/03/18 08:25 Pulse Ox 97 07/03/18 08:25 Intake & Output 07/02/18 07/03/18 07/03/18 18:59 06:59 18:59 Intake Total 360 Output Total 300 200 Balance -300 160 Weight 72.575 kg 72 kg Intake: Oral 360 Output: Urine 300 200 Other: Voiding Method Bedpan # Voids 1 - Exam General: [non toxic], [not in distress], [appears at stated age] Derm: [warm], [dry] Head: [atraumatic], [normocephalic], [symmetric] Eyes: [EOMI], [no lid lag], [anicteric sclera] Mouth: [no lip lesion], [mucus membranes moist] Cardiovascular: [S1S2 reg], [no murmur], [positive posterior tibial pulse bilateral], Lungs: [Decreased breath sounds bilateral], [no rhonchi, no rales] , [no accessory muscle use] Abdominal: [soft], [ nontender to palpation], [no guarding], [no appreciable organomegaly] Ext: [no gross muscle atrophy], [no edema], [no contractures] Neuro: [ CN II-XI grossly intact], [no focal neuro deficits] Psych: [Alert], [oriented], [appropriate affect] - Labs CBC & Chem 7: 07/03/18 02:30 07/03/18 02:30 Labs: Abnormal Lab Results - Last 24 Hours (Table) 07/02/18 07/02/18 07/02/18 Range/Units 14:30 14:30 14:30 WBC 15.9 H (3.8-10.6) k/uL RBC 2.79 L (3.80-5.40) m/uL Hgb 8.8 L (11.4-16.0) gm/dL Hct 27.3 L (34.0-46.0) % MCV (80.0-100.0) fL RDW 15.7 H (11.5-15.5) % Neutrophils # 14.2 H (1.3-7.7) k/uL Lymphocytes # 0.5 L (1.0-4.8) k/uL D-Dimer 0.67 H (<0.60) mg/L FEU Potassium (3.5-5.1) mmol/L Carbon Dioxide (22-30) mmol/L BUN 48 H (7-17) mg/dL Creatinine 2.10 H (0.52-1.04) mg/dL Glucose (74-99) mg/dL POC Glucose (mg/dL) (75-99) mg/dL Calcium 8.2 L (8.4-10.2) mg/dL ALT 59 H (9-52) U/L Total Protein 5.6 L (6.3-8.2) g/dL Albumin 3.2 L (3.5-5.0) g/dL Urine Protein (Negative) Urine Blood (Negative) Urine Bacteria (None) /hpf Urine Mucus (None) /hpf 07/02/18 07/02/18 07/03/18 Range/Units 18:15 20:40 02:30 WBC 14.0 H (3.8-10.6) k/uL RBC 2.45 L (3.80-5.40) m/uL Hgb 8.2 L (11.4-16.0) gm/dL Hct 25.4 L (34.0-46.0) % MCV 103.5 H D (80.0-100.0) fL RDW 15.6 H (11.5-15.5) % Neutrophils # 13.6 H (1.3-7.7) k/uL Lymphocytes # 0.2 L (1.0-4.8) k/uL D-Dimer (<0.60) mg/L FEU Potassium (3.5-5.1) mmol/L Carbon Dioxide (22-30) mmol/L BUN (7-17) mg/dL Creatinine (0.52-1.04) mg/dL Glucose (74-99) mg/dL POC Glucose (mg/dL) 219 H (75-99) mg/dL Calcium (8.4-10.2) mg/dL ALT (9-52) U/L Total Protein (6.3-8.2) g/dL Albumin (3.5-5.0) g/dL Urine Protein 2+ H (Negative) Urine Blood Trace H (Negative) Urine Bacteria Rare H (None) /hpf Urine Mucus Rare H (None) /hpf 07/03/18 07/03/18 07/03/18 Range/Units 02:30 06:17 08:56 WBC (3.8-10.6) k/uL RBC (3.80-5.40) m/uL Hgb (11.4-16.0) gm/dL Hct (34.0-46.0) % MCV (80.0-100.0) fL RDW (11.5-15.5) % Neutrophils # (1.3-7.7) k/uL Lymphocytes # (1.0-4.8) k/uL D-Dimer (<0.60) mg/L FEU Potassium 5.2 H (3.5-5.1) mmol/L Carbon Dioxide 21 L (22-30) mmol/L BUN 53 H (7-17) mg/dL Creatinine 2.24 H (0.52-1.04) mg/dL Glucose 291 H (74-99) mg/dL POC Glucose (mg/dL) 471 H 525 H (75-99) mg/dL Calcium 7.8 L (8.4-10.2) mg/dL ALT (9-52) U/L Total Protein (6.3-8.2) g/dL Albumin (3.5-5.0) g/dL Urine Protein (Negative) Urine Blood (Negative) Urine Bacteria (None) /hpf Urine Mucus (None) /hpf Assessment and Plan Assessment: Assessment and Plan 1. Acute on chronic hypoxic respiratory failure 2. COPD exacerbation 3. CHF exacerbation 4. Anemia 5. Leukocytosis 6. Elevated d-dimer 7. CK D 8. History of TIA 9. Diabetes mellitus 1. Multifactorial. Combination of COPD and CHF exacerbation. Optimize cardiac medications, start diuresis with Lasix IV. Optimize COPD medications. O2 per nasal cannula to maintain an O2 saturation greater than 92%, BiPAP as needed. Chest x-ray showing signs of mild CHF. Telemetry monitoring. Troponin 0.015, 0.016, less than 0.012, EKG showing normal sinus rhythm, ACS ruled out. Will follow pulmonology and cardiology recommendations. 2. Continue DuoNeb 4 times a day scheduled and as needed for shortness of breath or wheezing. Start prednisone 40 mg by mouth daily. Will follow pulmonology recommendations. 3. BNP greater than 10,000 with chest x-ray showing findings of pleural effusion and mild CHF. Continue diuresis with Lasix 60 mg IV twice a day. Continue beta chau. Strict ins and outs. Daily weights. Telemetry monitoring. Keep potassium greater than 4 and magnesium greater than 2. Will follow cardiology recommendations. 4. Hemoglobin 8.8 to 8.2, normocytic. Stable since previous admission. Likely anemia chronic disease secondary to multiple core morbidities. Continue iron sulfate supplementation. Daily CBC. Transfuse if hemoglobin less than 7. 5. Patient is afebrile with a leukocytosis of 15.9 with neutrophilia, improved to 14.0 this morning. This is likely secondary to steroid use. She has no signs of infection. Chest x-ray shows no pneumonia. Daily CBC. We will continue to monitor clinically. 6. D-dimer 0.67, baseline is less than 0.60. No concerns for PE at this time. Likely secondary to CHF and CK D. We will continue to monitor clinically. 7. BUN of 48 to 53, creatinine of 2.10 to 2.24, stable from previous admission. Daily BMP. Avoid nephrotoxins. 8. Continue aspirin, Plavix and Lipitor. 9. POC glucose 525. A1c of 9.0 on previous admission. Insulin sliding scale. Hypoglycemic precautions. Regular Accu-Cheks. Will start Levemir 30 units at bedtime, NovoLog 10 units 3 times a day with meals. Patient admitted for respiratory failure, component of CHF and COPD. Pulmonology and cardiology is on board. Diuresing with Lasix IV and giving DuoNeb [id number]. Patient is pending clinical improvement. Insulin increased for better glycemic control.
[2018-07-03 11:42] VITALS: BMI 27.2
[2018-07-03 11:45] LABS: Glucose,Whole Blood 569 mg/dL (75-99)
--- NOTE | 2018-07-03 12:02 | P.CRDCN ---
History of Present Illness History of present illness: this is a pleasant 47-year-old female past medical history significant for COPD, severe peripheral vascular disease status post fem-pop bypass surgery in 2012, carotid artery stenosis, hypertension, diabetes mellitus , dyslipidemia and chronic nicotine dependence. She was recently discharged from the hospital on June 22 with pneumonia and heart failure. She came back due to increased shortness of breath and lower extremity edema that has been getting progressively worse over the last couple of days. She denies chest pain, palpitations, dizziness, nausea or vomiting. She is seen and examined sitting up in bed in no acute distress. Currently maintained on lasix 40 mg IV TID, amlodipine 10 mg daily, aspirin 81 mg daily, atorvastatin 80 mg daily, plavix 75 mg daily, toprol 50 mg daily and imdur 60 mg daily. EKG reveals sinus mechanism with right axis deviation and poor R-wave progression. Chest xray reveals mild congestive heart failure on change compared to previous exam with small pleural effusions noted. Laboratory data reviewed, WBC 14, hemoglobin 8.2 , platelets 206, sodium 138, potassium 5.2, creatinine 2.24, troponin negative 3, NT proBNP 10,200. Echocardiogram obtained earlier this month reveals mildly impaired left ventricular systolic function with ejection fraction 45-50%, severe mitral regurgitation and mild tricuspid regurgitation noted. At the time of my exam: CONSTITUTIONAL: Denies fever. Denies chills. EYES: Denies blurred vision. Denies vision changes. Denies eye pain. EARS, NOSE, MOUTH & THROAT: Denies headache. Denies sore throat. Denies ear pain. CARDIOVASCULAR: Denies chest pain. Denies shortness of breath. Denies orthopnea. Denies PND. Denies palpitations. RESPIRATORY: Denies cough. GASTROINTESTINAL: Denies abdominal pain. Denies diarrhea. Denies constipation. Denies nausea. Denies vomiting. MUSCULOSKELETAL: Denies myalgias. INTEGUMENTARY: Denies pruitis. Denies rash. NEUROLOGIC: Denies numbness. Denies tingling. Denies weakness. PSYCHIATRIC: Denies anxiety. Denies depression. ENDOCRINE: Denies fatigue. Denies weight change. Denies polydipsia. Denies polyurina. GENITOURINARY: Denies burning, hematuria or urgency with micturation. HEMATOLOGIC: Denies history of anemia. Denies bleeding. blood pressure 131/68 heart rate 88 afebrile maintaining oxygen saturation on room air GENERAL: This is a 47-year-old femalein no apparent distress at the time of my examination. HEENT: Head is atraumatic, normocephalic. Pupils are equal, round. Sclerae anicteric. Conjunctivae are clear. Mucous membranes of the mouth are moist. Neck is supple. There is no jugular venous distention. No carotid bruit is heard. LUNGS: bibasilar rales, coarse rhonchi scattered and expiratory wheezes noted.No chest wall tenderness is noted on palpation or with deep breathing. HEART: Regular rate and rhythm with systolic ejection murmur at the left sternal border, no rubs or gallops. S1 and S2 heard. ABDOMEN: Soft, nontender. Bowel sounds are heard. No organomegaly noted. EXTREMITIES: Trace bilateral lower extremity edema, non-pitting. No calf tenderness noted. VASCULAR: Radial and dorsalis pedis pulses palpated, no evidence of clubbing. NEUROLOGIC: Patient is awake, alert and oriented x3. ASSESSMENT Acute on chronic diastolic heart failure acute exacerbation of chronic COPD Acute on chronic hypoxic respiratory failure Anemia of unknown etiology Leukocytosis Hypertension Dyslipidemia Severe peripheral vascular disease Mitral regurgitation PLAN Continue IV Lasix 40 mg 3 times a day. Follow electrolytes and kidney function daily. Document accurate intake and output along with daily weights. Recommend changing hydralazine to BID scheduled dosing rather than PRN. Further recommendations to follow based on clinical course. Thank you kindly for this consultation. Nurse Practitioner note has been reviewed, I agree with a documented findings and plan of care. Patient was seen and examined. Past Medical History Past Medical History: COPD, CVA/TIA, Diabetes Mellitus, Hyperlipidemia, Hypertension, Renal Disease, Vascular Disorder Additional Past Medical History / Comment(s): Leukemia. History of Any Multi-Drug Resistant Organisms: None Reported Past Surgical History: Appendectomy, Bowel Resection, Orthopedic Surgery, Tubal Ligation Additional Past Surgical History / Comment(s): Hx of colostomy and reversal, rotator cuff repair on Left,hx of bifem bypass. Colonoscopy 2012 Past Anesthesia/Blood Transfusion Reactions: No Reported Reaction Past Psychological History: Anxiety, Depression Smoking Status: Heavy tobacco smoker Past Alcohol Use History: None Reported Past Drug Use History: Marijuana - Past Family History Mother Family Medical History: No Reported History, Congestive Heart Failure (CHF), Diabetes Mellitus Brother(s) Additional Family Medical History / Comment(s): CABG Sister(s) Family Medical History: CVA/TIA Additional Family Medical History / Comment(s): Maternal aunt had breast cancer. Medications and Allergies Home Medications Medication Instructions Recorded Confirmed Type Clopidogrel Bisulfate [Plavix] 75 mg PO DAILY 01/21/15 07/02/18 History Ergocalciferol (Vitamin D2) 50,000 unit PO DIRECTED 01/21/15 07/02/18 History [Drisdol] Ferrous Sulfate [Iron (65 MG 325 mg PO DAILY 01/21/15 07/02/18 History Elemental)] Loratadine [Claritin] 10 mg PO DAILY 01/21/15 07/02/18 History lamoTRIgine [LaMICtal] 25 mg PO BID 01/21/15 07/02/18 History Albuterol Inhaler [Ventolin Hfa 1 - 2 puff INHALATION RT-Q6H PRN 06/30/17 History Inhaler] Atorvastatin [Lipitor] 80 mg PO HS 06/30/17 07/02/18 History Citalopram Hydrobromide [CeleXA] 20 mg PO DAILY 06/30/17 07/02/18 History Aspirin EC [Ecotrin Low Dose] 81 mg PO DAILY 06/18/18 07/02/18 History Famotidine [Pepcid] 40 mg PO DAILY 06/18/18 07/02/18 History Tiotropium [place] [Spiriva 2 spray INHALATION RT-HS 06/18/18 07/02/18 History Respimat] amLODIPine [Norvasc] 10 mg PO DAILY 06/18/18 07/02/18 History Furosemide [Lasix] 60 mg PO BID@0900,1600 #60 tab 06/22/18 07/02/18 Rx Isosorbide Mononitrate ER [Imdur] 60 mg PO DAILY #30 tab.er.24h 06/22/18 Rx Metoprolol Succinate (ER) [Toprol 50 mg PO DAILY #30 tab.er.24h 06/22/18 Rx XL] Albuterol Nebulized [Ventolin 2.5 mg INHALATION RT-Q6H PRN 07/02/18 07/02/18 History Nebulized] Varenicline Tartrate [Chantix 0.5 mg PO DIRECTED 07/02/18 07/02/18 History Starter Pack] glipiZIDE [Glucotrol] 5 mg PO BID 07/02/18 07/02/18 History hydrALAZINE HCL 25 mg PO BID PRN 07/02/18 07/02/18 History Insulin Glargine,Hum.rec.anlog 20 units SQ DAILY 07/03/18 07/03/18 History [Basaglar Kwikpen U-100] Insulin Lispro [Admelog] 16 units SQ TID-W/MEALS 07/03/18 07/03/18 History Allergies Allergy/AdvReac Type Severity Reaction Status Date / Time bee venom protein (honey bee) Allergy Rash/Hives Verified 07/02/18 16:06 Penicillins Allergy Rash/Hives Verified 07/02/18 16:06 Physical Exam Vitals: Vital Signs Temp Pulse Pulse Resp BP BP Pulse Ox 07/03/18 04:00 79 21 122/86 98 07/02/18 23:59 74 26 H 130/66 100 07/02/18 21:10 84 29 H 134/63 99 07/02/18 20:00 84 29 H 07/02/18 19:53 89 18 07/02/18 19:44 87 18 07/02/18 18:53 27 H 100 07/02/18 18:19 97.7 F 92 33 H 99/71 100 07/02/18 18:00 98.2 F 98 31 H 171/76 97 07/02/18 17:30 89 34 H 100/67 98 07/02/18 16:38 93 32 H 94/66 99 07/02/18 16:22 98.7 F 97 36 H 109/73 99 07/02/18 16:05 98 40 H 88 L 07/02/18 15:41 98 07/02/18 15:28 100 07/02/18 15:18 102 H 07/02/18 15:08 100 07/02/18 14:13 98.3 F 100 18 101/61 90 L Intake and Output 07/02/18 07/03/18 07/03/18 22:59 06:59 14:59 Intake Total 360 Output Total 300 200 Balance -300 160 Intake: Oral 360 Output: Urine 300 200 Other: Voiding Method Bedpan # Voids 1 1 Weight 72 kg Results 07/03/18 02:30 07/03/18 02:30 Cardiac Enzymes 07/02/18 07/02/18 07/02/18 Range/Units 14:30 14:30 22:00 AST 28 (14-36) U/L Troponin I 0.015 0.016 (0.000-0.034) ng/mL 07/03/18 Range/Units 02:24 AST (14-36) U/L Troponin I <0.012 (0.000-0.034) ng/mL Coagulation 07/02/18 Range/Units 14:30 PT 10.6 (9.0-12.0) sec APTT 27.7 (22.0-30.0) sec CBC 07/02/18 07/03/18 Range/Units 14:30 02:30 WBC 15.9 H 14.0 H (3.8-10.6) k/uL RBC 2.79 L 2.45 L (3.80-5.40) m/uL Hgb 8.8 L 8.2 L (11.4-16.0) gm/dL Hct 27.3 L 25.4 L (34.0-46.0) % Plt Count 232 206 (150-450) k/uL Comprehensive Metabolic Panel 07/02/18 07/03/18 Range/Units 14:30 02:30 Sodium 139 138 (137-145) mmol/L Potassium 4.3 5.2 H (3.5-5.1) mmol/L Chloride 107 107 (98-107) mmol/L Carbon Dioxide 23 21 L (22-30) mmol/L BUN 48 H 53 H (7-17) mg/dL Creatinine 2.10 H 2.24 H (0.52-1.04) mg/dL Glucose 84 291 H (74-99) mg/dL Calcium 8.2 L 7.8 L (8.4-10.2) mg/dL AST 28 (14-36) U/L ALT 59 H (9-52) U/L Alkaline Phosphatase 97 (38-126) U/L Total Protein 5.6 L (6.3-8.2) g/dL Albumin 3.2 L (3.5-5.0) g/dL Current Medications Generic Name Dose Route Start Last Admin Trade Name Freq PRN Reason Stop Dose Admin Acetaminophen 650 mg 07/02/18 18:14 Tylenol Tab PO Q6HR PRN Mild Pain or Fever > 100.5 Hydrocodone Bitart/Acetaminophen 1 each 07/02/18 18:14 07/02/18 21:03 Spiro 5-325 PO 1 each Q4HR PRN Administration Moderate Pain Albuterol/Ipratropium 3 ml 07/02/18 18:14 Duoneb 0.5 Mg-3 Mg/3 Ml Soln INHALATION RT-QID PRN Shortness Of Breath Or Wheezing Albuterol/Ipratropium 3 ml 07/02/18 20:00 07/02/18 19:44 Duoneb 0.5 Mg-3 Mg/3 Ml Soln INHALATION 3 ml RT-QID [facility] Administration Amlodipine Besylate 10 mg 07/03/18 09:00 Norvasc PO DAILY [facility] Aspirin 81 mg 07/03/18 09:00 Aspirin PO DAILY [facility] Atorvastatin Calcium 80 mg 07/02/18 21:00 07/02/18 21:03 Lipitor PO 80 mg HS [facility] Administration Citalopram Hydrobromide 20 mg 07/03/18 09:00 Celexa PO DAILY [facility] Clopidogrel Bisulfate 75 mg 07/03/18 09:00 Plavix PO DAILY [facility] Ferrous Sulfate 325 mg 07/03/18 09:00 Feosol PO DAILY [facility] Furosemide 40 mg 07/03/18 00:00 07/02/18 23:35 Lasix IV 40 mg Q8HR [facility] Administration Hydralazine HCl 25 mg 07/02/18 18:12 07/02/18 21:03 Apresoline PO 25 mg BID PRN Administration 120 OR ABOVE Sodium Chloride 1,000 mls @ 20 mls/hr 07/02/18 17:30 07/02/18 20:42 Saline 0.9% IV Not Given .Q24H [facility] Insulin Aspart 0 unit 07/02/18 21:00 07/03/18 06:25 Novolog SQ Not Given AC-TID [facility] Protocol Isosorbide Mononitrate 60 mg 07/03/18 09:00 Imdur PO DAILY [facility] Lamotrigine 25 mg 07/02/18 21:00 07/02/18 21:03 Lamictal PO 25 mg BID [facility] Administration Metoprolol Succinate 50 mg 07/03/18 09:00 Toprol Xl PO DAILY [facility] Morphine Sulfate 2 mg 07/02/18 18:14 Morphine Sulfate (Inj) IV Q4HR PRN Severe Pain Naloxone HCl 0.2 mg 07/02/18 18:14 Narcan IV Q2M PRN Opioid Reversal Prednisone 40 mg 07/03/18 09:00 PO DAILY [facility] Intake and Output 07/02/18 07/03/18 07/03/18 22:59 06:59 14:59 Intake Total 360 Output Total 300 200 Balance -300 160 Intake: Oral 360 Output: Urine 300 200 Other: Voiding Method Bedpan # Voids 1 1 Weight 72 kg Patient Weight 07/04/18 06:59 Weight 72 kg 07/03/18 02:30 07/03/18 02:30
--- NOTE | 2018-07-03 14:23 | P.CNPUL ---
History of Present Illness Consult date: 07/03/18 Reason for consult: dyspnea History of present illness: A 47-year-old female patient with known history of COPD and chronic smoker in addition to diabetes mellitus and chronic renal failure and peripheral vascular disease with a previous fem-pop bypass surgery was performed in 2012. The patient also has hyperlipidemia and hypertension and carotid artery disease and she is a chronic smoker. The patient presented to the hospital because of worsening shortness of breath. The patient was actively bronchospastic and wheezy. She was placed on BiPAP for respiratory support. White cell count was at 14 with a hemoglobin of 8.2. Her serum creatinine is chronically elevated at 2.2 which is stable. 3. Troponin negative. ProBNP level was 10,002 100. Echo from earlier evaluation showed an ejection fraction of 45-50% with severe MR and mild MR. The patient was treated with accommodation bronchodilators and systemic steroids. The patient is currently on oral prednisone. The patient is less bronchospastic and wheezy. No significant sputum production. She is receiving Lasix 40 mg IV push every 8 hours. Sugar was noted to be elevated this morning and the patient was started back on her insulin which includes Levemir and NovoLog according to the skin and with meals. Review of Systems CONSTITUTIONAL: Denies fever. Denies chills. EYES: Denies blurred vision. Denies vision changes. Denies eye pain. EARS, NOSE, MOUTH & THROAT: Denies headache. Denies sore throat. Denies ear pain. CARDIOVASCULAR: Denies chest pain. Denies shortness of breath. Denies orthopnea. Denies PND. Denies palpitations. RESPIRATORY: Increased dyspnea shortness of breath GASTROINTESTINAL: Denies abdominal pain. Denies diarrhea. Denies constipation. Denies nausea. Denies vomiting. MUSCULOSKELETAL: Denies myalgias. INTEGUMENTARY: Denies pruitis. Denies rash. NEUROLOGIC: Denies numbness. Denies tingling. Denies weakness. PSYCHIATRIC: Denies anxiety. Denies depression. ENDOCRINE: Denies fatigue. Denies weight change. Denies polydipsia. Denies polyurina. GENITOURINARY: Denies burning, hematuria or urgency with micturation. HEMATOLOGIC: Denies history of anemia. Denies bleeding. Past Medical History Past Medical History: Heart Failure, COPD, CVA/TIA, Diabetes Mellitus, Hyperlipidemia, Hypertension, Renal Disease, Vascular Disorder Additional Past Medical History / Comment(s): CHF, valvular heart disease with MR, peripheral vascular disease, hypertension, hyperlipidemia, COPD, diabetes mellitus History of Any Multi-Drug Resistant Organisms: None Reported Past Surgical History: Appendectomy, Bowel Resection, Orthopedic Surgery, Tubal Ligation Additional Past Surgical History / Comment(s): Hx of colostomy and reversal, rotator cuff repair on Left,hx of bifem bypass. Colonoscopy 2012 Past Anesthesia/Blood Transfusion Reactions: No Reported Reaction Past Psychological History: Anxiety, Depression Smoking Status: Heavy tobacco smoker Past Alcohol Use History: None Reported Past Drug Use History: Marijuana - Past Family History Mother Family Medical History: No Reported History, Congestive Heart Failure (CHF), Diabetes Mellitus Brother(s) Additional Family Medical History / Comment(s): CABG Sister(s) Family Medical History: CVA/TIA Additional Family Medical History / Comment(s): Maternal aunt had breast cancer. Medications and Allergies Home Medications Medication Instructions Recorded Confirmed Type Clopidogrel Bisulfate [Plavix] 75 mg PO DAILY 01/21/15 07/02/18 History Ergocalciferol (Vitamin D2) 50,000 unit PO DIRECTED 01/21/15 07/02/18 History [Drisdol] Ferrous Sulfate [Iron (65 MG 325 mg PO DAILY 01/21/15 07/02/18 History Elemental)] Loratadine [Claritin] 10 mg PO DAILY 01/21/15 07/02/18 History lamoTRIgine [LaMICtal] 25 mg PO BID 01/21/15 07/02/18 History Albuterol Inhaler [Ventolin Hfa 1 - 2 puff INHALATION RT-Q6H PRN 06/30/17 History Inhaler] Atorvastatin [Lipitor] 80 mg PO HS 06/30/17 07/02/18 History Citalopram Hydrobromide [CeleXA] 20 mg PO DAILY 06/30/17 07/02/18 History Aspirin EC [Ecotrin Low Dose] 81 mg PO DAILY 06/18/18 07/02/18 History Famotidine [Pepcid] 40 mg PO DAILY 06/18/18 07/02/18 History Tiotropium [place] [Spiriva 2 spray INHALATION RT-HS 06/18/18 07/02/18 History Respimat] amLODIPine [Norvasc] 10 mg PO DAILY 06/18/18 07/02/18 History Furosemide [Lasix] 60 mg PO BID@0900,1600 #60 tab 06/22/18 07/02/18 Rx Isosorbide Mononitrate ER [Imdur] 60 mg PO DAILY #30 tab.er.24h 06/22/18 Rx Metoprolol Succinate (ER) [Toprol 50 mg PO DAILY #30 tab.er.24h 06/22/18 Rx XL] Albuterol Nebulized [Ventolin 2.5 mg INHALATION RT-Q6H PRN 07/02/18 07/02/18 History Nebulized] Varenicline Tartrate [Chantix 0.5 mg PO DIRECTED 07/02/18 07/02/18 History Starter Pack] glipiZIDE [Glucotrol] 5 mg PO BID 07/02/18 07/02/18 History hydrALAZINE HCL 25 mg PO BID PRN 07/02/18 07/02/18 History Insulin Glargine,Hum.rec.anlog 20 units SQ DAILY 07/03/18 07/03/18 History [Basaglar Kwikpen U-100] Insulin Lispro [Admelog] 16 units SQ TID-W/MEALS 07/03/18 07/03/18 History Allergies Allergy/AdvReac Type Severity Reaction Status Date / Time bee venom protein (honey bee) Allergy Rash/Hives Verified 07/02/18 16:06 Penicillins Allergy Rash/Hives Verified 07/02/18 16:06 Physical Exam Vitals: Vital Signs Temp Pulse Pulse Resp BP BP Pulse Ox 07/03/18 12:06 94 07/03/18 12:00 97.5 F L 90 19 142/65 98 07/03/18 11:56 93 07/03/18 08:38 92 07/03/18 08:28 90 07/03/18 08:25 98.2 F 80 20 131/60 97 07/03/18 04:00 79 21 122/86 98 07/02/18 23:59 74 26 H 130/66 100 07/02/18 21:10 84 29 H 134/63 99 07/02/18 20:00 84 29 H 07/02/18 19:53 89 18 07/02/18 19:44 87 18 07/02/18 18:53 27 H 100 07/02/18 18:19 97.7 F 92 33 H 99/71 100 07/02/18 18:00 98.2 F 98 31 H 171/76 97 07/02/18 17:30 89 34 H 100/67 98 07/02/18 16:38 93 32 H 94/66 99 07/02/18 16:22 98.7 F 97 36 H 109/73 99 07/02/18 16:05 98 40 H 88 L 07/02/18 15:41 98 07/02/18 15:28 100 07/02/18 15:18 102 H 07/02/18 15:08 100 Intake and Output 07/02/18 07/03/18 07/03/18 22:59 06:59 14:59 Intake Total 720 Output Total 300 200 Balance -300 520 Intake: Oral 720 Output: Urine 300 200 Other: Voiding Method Bedpan # Voids 1 1 Weight 72 kg GENERAL: This is a 47-year-old femalein no apparent distress at the time of my examination. She is currently on BiPAP for respiratory support HEENT: Head is atraumatic, normocephalic. Pupils are equal, round. Sclerae anicteric. Conjunctivae are clear. Mucous membranes of the mouth are moist. Neck is supple. There is no jugular venous distention. No carotid bruit is heard. LUNGS: bibasilar rales, coarse rhonchi scattered and expiratory wheezes noted.No chest wall tenderness is noted on palpation or with deep breathing. HEART: Regular rate and rhythm with systolic ejection murmur at the left sternal border, no rubs or gallops. S1 and S2 heard. ABDOMEN: Soft, nontender. Bowel sounds are heard. No organomegaly noted. EXTREMITIES: Trace bilateral lower extremity edema, non-pitting. No calf tenderness noted. VASCULAR: Radial and dorsalis pedis pulses palpated, no evidence of clubbing. NEUROLOGIC: Patient is awake, alert and oriented x3. Results - Laboratory Findings CBC and BMP: 07/03/18 02:30 07/03/18 12:40 PT/INR, D-dimer PT 10.6 sec (9.0-12.0) 07/02/18 14:30 INR 1.0 (<1.2) 07/02/18 14:30 D-Dimer 0.67 mg/L FEU (<0.60) H 07/02/18 14:30 Abnormal lab findings: Abnormal Labs 07/02/18 07/02/18 07/02/18 14:30 14:30 14:30 WBC 15.9 H RBC 2.79 L Hgb 8.8 L Hct 27.3 L MCV RDW 15.7 H Neutrophils # 14.2 H Lymphocytes # 0.5 L D-Dimer 0.67 H Potassium Carbon Dioxide BUN 48 H Creatinine 2.10 H Glucose POC Glucose (mg/dL) Calcium 8.2 L ALT 59 H Total Protein 5.6 L Albumin 3.2 L Urine Protein Urine Blood Urine Bacteria Urine Mucus 07/02/18 07/02/18 07/03/18 18:15 20:40 02:30 WBC 14.0 H RBC 2.45 L Hgb 8.2 L Hct 25.4 L MCV 103.5 H D RDW 15.6 H Neutrophils # 13.6 H Lymphocytes # 0.2 L D-Dimer Potassium Carbon Dioxide BUN Creatinine Glucose POC Glucose (mg/dL) 219 H Calcium ALT Total Protein Albumin Urine Protein 2+ H Urine Blood Trace H Urine Bacteria Rare H Urine Mucus Rare H 07/03/18 07/03/18 07/03/18 02:30 06:17 08:56 WBC RBC Hgb Hct MCV RDW Neutrophils # Lymphocytes # D-Dimer Potassium 5.2 H Carbon Dioxide 21 L BUN 53 H Creatinine 2.24 H Glucose 291 H POC Glucose (mg/dL) 471 H 525 H Calcium 7.8 L ALT Total Protein Albumin Urine Protein Urine Blood Urine Bacteria Urine Mucus 07/03/18 07/03/18 11:20 12:40 WBC RBC Hgb Hct MCV RDW Neutrophils # Lymphocytes # D-Dimer Potassium Carbon Dioxide BUN Creatinine Glucose 564 H* POC Glucose (mg/dL) 569 H Calcium ALT Total Protein Albumin Urine Protein Urine Blood Urine Bacteria Urine Mucus - Diagnostic Findings Chest x-ray: image reviewed Assessment and Plan Plan: Assessment 1 acute COPD exacerbation with secondary shortness of breath. The patient is currently on BiPAP for respiratory support. 2 chronic systolic heart failure with an ejection fraction of 45% and moderate to severe mitral regurgitation 3 shortness of breath secondary to above 4 acute on chronic hypoxic respiratory failure 5 hypertension 6 hyperlipidemia 7 peripheral vascular disease 8 chronic kidney disease , stage III 9 diabetes mellitus with steroid-induced hyperglycemia 10 chronic anemia, likely anemia of chronic disease Plan Into the BiPAP therapy for respiratory support pH is quite short of breath. Encourage using the BiPAP overnight. Continue bronchodilators. IV Lasix, oral prednisone burst taper, monitor blood sugar. We'll continue to follow. The patient be kept on the medical floor with telemetry monitoring. May come to the ICU for condition gets worse. We'll follow.
[2018-07-03] MEDS ORDERED: INSULIN DETEMIR (LEVEMIR) 100 UNIT/ML SYR SQ SCH ×2 (15:00→21:00)
[2018-07-03 16:25] LABS: Glucose,Whole Blood 513 mg/dL (75-99)
[2018-07-03] MEDS: SODIUM CHLORIDE 0.9% 1,000 ML IV SCH (17:10)
[2018-07-03] MEDS: ATORVASTATIN 80 MG TAB PO SCH (19:39)
[2018-07-03] MEDS: HYDROcodone/APAP 5-325MG 1 EACH TAB PO PRN (19:39)
[2018-07-03] MEDS: hydrALAZINE HCL 25 MG TAB PO SCH (19:40)
[2018-07-03 20:29] LABS: Glucose,Whole Blood 182 mg/dL (75-99)
[2018-07-04 01:53] LABS: Glucose,Whole Blood 114 mg/dL (75-99)
[2018-07-04 05:49] LABS: Glucose,Whole Blood 158 mg/dL (75-99)
[2018-07-04] MEDS: INSULIN ASPART (NovoLOG) 100 UNIT/ML VIAL SQ SCH ×7 (06:57→21:01)
[2018-07-04 08:45] LABS: Calcium 8.2 mg/dL (8.4-10.2); Potassium 4.9 mmol/L (3.5-5.1)
[2018-07-04] MEDS: FUROSEMIDE 10 MG/ML 4 ML VIAL IV SCH (08:55)
[2018-07-04] MEDS: amLODIPine 10 MG TAB PO SCH (08:56)
[2018-07-04] MEDS: LEVOFLOXACIN 250 MG TAB PO SCH (08:56)
[2018-07-04] MEDS: hydrALAZINE HCL 25 MG TAB PO SCH ×2 (08:56→19:52)
[2018-07-04] MEDS: ISOSORBIDE MONONITRATE ER 60 MG TAB.ER.24H PO SCH (08:56)
[2018-07-04] MEDS: lamoTRIgine 25 MG TAB PO SCH ×2 (08:56→19:52)
[2018-07-04] MEDS: CITALOPRAM HYDROBROMIDE 20 MG TAB PO SCH (08:57)
[2018-07-04] MEDS: CLOPIDOGREL 75 MG TAB PO SCH (08:57)
[2018-07-04] MEDS: ASPIRIN 81 MG PO SCH (08:57)
[2018-07-04] MEDS: FERROUS SULFATE 325 MG TAB PO SCH (08:57)
[2018-07-04] MEDS: predniSONE 20 MG TAB PO SCH (08:57)
[2018-07-04] MEDS: METOPROLOL SUCCINATE (ER) 50 MG TAB.ER.24H PO SCH (08:57)
[2018-07-04] MEDS: IPRATROPIUM-ALBUTEROL 3 ML NEB INHALATION SCH ×4 (09:24→20:08)
[2018-07-04] MEDS: guaiFENesin 600 MG TABLET.ER PO SCH ×2 (10:07→19:52)
[2018-07-04 11:46] LABS: Glucose,Whole Blood 147 mg/dL (75-99)
--- NOTE | 2018-07-04 13:50 | P.PN ---
Subjective Progress Note Date: 07/04/18 (delayed charting patient seen at 0845) Principal diagnosis: shortness of breath Patient is a 47-year-old female past medical history of COPD, systolic congestive heart failure, diabetes mellitus type 2 insulin requiring, hypertension, and chronic kidney disease who presented to the emergency department for shortness of breath. Patient was recently hospitalized and discharged on 06/22/2018 for acute exacerbation of COPD, CHF, and acute kidney injury and chronic kidney disease. Patient was provided with a log for her blood sugars, home health, and multiple appointments. She did see her PCP but was unable to follow with nephrology due to rides, she was seen by home health once and believes she missed letting them in for the next several visits. On admission to the ER at this time she was found to have leukocytosis of 15.9 hemoglobin 8.8. Her d-dimer was slightly elevated at 0.67 and her creatinine was at her baseline of 2.1. She was hypoxic and saturating at 88% on room air and appeared to. She was therefore placed on BiPAP and admitted to the selective care unit. Lower extremity venous duplex were negative for DVT. It was felt that she likely did not have a PE as there is more probable diagnoses and she does smoke which was elevated her d-dimer. She was started on IV Lasix 3 times a day. She continued to diurese well. She was seen by cardiology. She has been seen by pulmonary and placed on oral steroids. Patient seen and examined at bedside. She states her breathing is somewhat better. Her lower extremity edema has completely resolved. She still having some chest pain with coughing. She complains that her cough feels tight she is having difficulty coughing things up. She denies any nausea, vomiting, or constipation. She states she seen by Dr. Pratt in outpatient setting was placed on glyburide in addition to her insulin regimen. She therefore was having hypoglycemia blood sugars 50 to 70s prior to coming in and was using novolog, glyburide and basalglar Objective - Vital Signs Vital signs: Vital Signs Temp 97.3 F L 07/04/18 12:10 Pulse 71 07/04/18 12:10 Resp 18 07/04/18 12:10 BP 127/62 07/04/18 12:10 Pulse Ox 93 L 07/04/18 12:10 Intake & Output 07/03/18 07/04/18 07/04/18 18:59 06:59 18:59 Intake Total 720 240 Output Total 400 Balance 320 240 Weight 72 kg 73.6 kg Intake: Oral 720 240 Output: Urine 400 Other: Voiding Method Bedside Commode - Exam General: non toxic, no distress, appears older than stated age Derm: warm, dry Head: atraumatic, normocephalic, symmetric Eyes: EOMI, no lid lag, anicteric sclera Mouth: no lip lesion, mucus membranes moist Cardiovascular: S1S2 reg, no murmur, positive posterior tibial pulse bilateral, Lungs: wheeze right base, no rhonchi, no rales , no accessory muscle use Abdominal: soft, nontender to palpation, no guarding, no appreciable organomegaly Ext: no gross muscle atrophy, no edema, no contractures Neuro: CN II-XI grossly intact, no focal neuro deficits Psych: Alert, oriented, appropriate affect - Labs CBC & Chem 7: 07/03/18 02:30 07/04/18 08:13 Labs: Abnormal Lab Results - Last 24 Hours (Table) 07/03/18 07/03/18 07/04/18 Range/Units 16:22 20:28 01:52 BUN (7-17) mg/dL Creatinine (0.52-1.04) mg/dL Glucose (74-99) mg/dL POC Glucose (mg/dL) 513 H 182 H 114 H (75-99) mg/dL Calcium (8.4-10.2) mg/dL 07/04/18 07/04/18 07/04/18 Range/Units 05:48 08:13 11:43 BUN 80 H (7-17) mg/dL Creatinine 2.63 H (0.52-1.04) mg/dL Glucose 136 H (74-99) mg/dL POC Glucose (mg/dL) 158 H 147 H (75-99) mg/dL Calcium 8.2 L (8.4-10.2) mg/dL Assessment and Plan Assessment: Acute exacerbation of systolic congestive heart failure with ejection fraction 45% -Transition from IV to oral Lasix with increasing creatinine -Not a candidate for an MI inhibitor secondary to chronic kidney disease IV and history of hyperkalemia -Continue beta chau -Strict I's and O's, daily weights, fluid restriction -Cardiology recommendations appreciated Acute exacerbation of COPD -Continue with bronchodilators and prednisone -Add Mucinex, incentive spirometer, and a flutter valve Diabetes mellitus type 2 with hyperglycemia, insulin requiring -Continue with fixed dose NovoLog, sliding scale, and Levemir. We will decrease Levemir to 28 units. -Discussed with extension educator -Continue to follow blood sugars -Continue to hold glipizide, await return phone call from primary care physician regarding plans for blood sugar control after discharge. -A1c 11 Jun 2018 Acute kidney injury on chronic kidney disease stage IV -Transition from IV to oral Lasix -Repeat renal profile in a.m. -Follows with Dr. Montelongo in the outpatient setting if creatinine continues to increase we'll consult nephrology - avoid additional nephrotoxic agents Acute hypoxic respiratory failure -Wean O2 as able -Treatment as above Tobacco abuse -Cessation -Continue Chantix and outpatient setting Hypertension, controlled -Continue to follow blood pressures -Continue with Norvasc, hydralazine, Imdur and Toprol Dyslipidemia -Continue with Lipitor Peripheral vascular disease -Continue outpatient follow-up Chronic anemia , at baseline -Continue with oral iron supplementation -Follow CBC as outpatient DVT prophylaxis: Heparin Discussed with: Patient, nursing Anticipated discharge: in AM if Cr stable Anticipated discharge place: home with home health A total of 40 minutes was spent on the care of this complex patient more than 50 % of the time was spent in counseling and care coordination.
[2018-07-04] MEDS ORDERED: INSULIN DETEMIR (LEVEMIR) 100 UNIT/ML SYR SQ SCH (14:00)
--- NOTE | 2018-07-04 15:09 | P.PN ---
Subjective Progress Note Date: 07/04/18 This is a pleasant 47-year-old female past medical history significant for COPD, severe peripheral vascular disease status post fem-pop bypass surgery in 2012, carotid artery stenosis, hypertension, diabetes mellitus , dyslipidemia and chronic nicotine dependence. She was recently discharged from the hospital on June 22 with pneumonia and heart failure. She came back due to increased shortness of breath and lower extremity edema that has been getting progressively worse over the last couple of days. She denies chest pain, palpitations, dizziness, nausea or vomiting. She is seen and examined sitting up in bed in no acute distress. Currently maintained on lasix 40 mg IV TID, amlodipine 10 mg daily, aspirin 81 mg daily, atorvastatin 80 mg daily, plavix 75 mg daily, toprol 50 mg daily and imdur 60 mg daily. EKG reveals sinus mechanism with right axis deviation and poor R-wave progression. Chest xray reveals mild congestive heart failure on change compared to previous exam with small pleural effusions noted. Laboratory data reviewed, WBC 14, hemoglobin 8.2 , platelets 206, sodium 138, potassium 5.2, creatinine 2.24, troponin negative 3, NT proBNP 10,200. Echocardiogram obtained earlier this month reveals mildly impaired left ventricular systolic function with ejection fraction 45-50%, severe mitral regurgitation and mild tricuspid regurgitation noted. 07/04/2017 Patient was seen and examined this morning, feeling well overall. Creatinine is up to 2.6 today from 2.2 yesterday, on oral diuretics. Patient states she still is urinating quite a bit. We will hold her Lasix today, check her lytes BUN and creatinine in the morning. Objective - Vital Signs Vital signs: Vital Signs Temp 97.3 F L 07/04/18 12:10 Pulse 71 07/04/18 12:10 Resp 18 07/04/18 12:10 BP 127/62 07/04/18 12:10 Pulse Ox 93 L 07/04/18 12:10 Intake & Output 07/03/18 07/04/18 07/04/18 18:59 06:59 18:59 Intake Total 720 240 Output Total 400 Balance 320 240 Weight 72 kg 73.6 kg Intake: Oral 720 240 Output: Urine 400 Other: Voiding Method Bedside Commode - Exam GENERAL: This is a 47-year-old femalein no apparent distress at the time of my examination. HEENT: Head is atraumatic, normocephalic. Pupils are equal, round. Sclerae anicteric. Conjunctivae are clear. Mucous membranes of the mouth are moist. Neck is supple. There is no jugular venous distention. No carotid bruit is heard. LUNGS: bibasilar rales, coarse rhonchi scattered and expiratory wheezes noted.No chest wall tenderness is noted on palpation or with deep breathing. HEART: Regular rate and rhythm with systolic ejection murmur at the left sternal border, no rubs or gallops. S1 and S2 heard. ABDOMEN: Soft, nontender. Bowel sounds are heard. No organomegaly noted. EXTREMITIES: Trace bilateral lower extremity edema, non-pitting. No calf tenderness noted. VASCULAR: Radial and dorsalis pedis pulses palpated, no evidence of clubbing. NEUROLOGIC: Patient is awake, alert and oriented x3. - Labs CBC & Chem 7: 07/03/18 02:30 07/04/18 08:13 Labs: Abnormal Lab Results - Last 24 Hours (Table) 07/03/18 07/03/18 07/04/18 Range/Units 16:22 20:28 01:52 BUN (7-17) mg/dL Creatinine (0.52-1.04) mg/dL Glucose (74-99) mg/dL POC Glucose (mg/dL) 513 H 182 H 114 H (75-99) mg/dL Calcium (8.4-10.2) mg/dL 07/04/18 07/04/18 07/04/18 Range/Units 05:48 08:13 11:43 BUN 80 H (7-17) mg/dL Creatinine 2.63 H (0.52-1.04) mg/dL Glucose 136 H (74-99) mg/dL POC Glucose (mg/dL) 158 H 147 H (75-99) mg/dL Calcium 8.2 L (8.4-10.2) mg/dL Assessment and Plan Plan: ASSESSMENT and plan Acute on chronic diastolic heart failure acute exacerbation of chronic COPD Acute on chronic hypoxic respiratory failure Anemia of unknown etiology Leukocytosis Hypertension Dyslipidemia Severe peripheral vascular disease Mitral regurgitation Plan We will hold the Lasix today, check lytes BUN and creatinine in the morning. Continue the rest of the medications. DNP note has been reviewed, I agree with a documented findings and plan of care. Patient was seen and examined.
[2018-07-04] MEDS ORDERED: FUROSEMIDE 20 MG TAB PO SCH (16:00)
[2018-07-04] MEDS: HEPARIN SODIUM,PORCINE 5,000 UNIT/ML 1 ML VIAL SQ SCH ×2 (16:14→23:08)
[2018-07-04 16:41] LABS: Glucose,Whole Blood 171 mg/dL (75-99)
[2018-07-04] MEDS: SODIUM CHLORIDE 0.9% 1,000 ML IV SCH (17:20)
[2018-07-04] MEDS: ATORVASTATIN 80 MG TAB PO SCH (19:52)
[2018-07-04 20:24] LABS: Glucose,Whole Blood 318 mg/dL (75-99)
[2018-07-04] MEDS ORDERED: INSULIN ASPART (NovoLOG) 100 UNIT/ML VIAL SQ ONE (20:36)
[2018-07-04 21:47] LABS: Hemoglobin A1C 7.9 % (4.0-6.0)
[2018-07-05] MEDS ORDERED: LORazepam 0.5 MG TAB PO PRN (01:49)
[2018-07-05 02:00] LABS: Glucose,Whole Blood 244 mg/dL (75-99)
[2018-07-05 02:18] LABS: Glucose,Whole Blood 230 mg/dL (75-99)
[2018-07-05 06:27] LABS: HCT 24.9 % (34.0-46.0); HGB 7.8 gm/dL (11.4-16.0); Hypochromasia Slight; MCH 31.9 pg (25.0-35.0); MCHC 31.5 g/dL (31.0-37.0); MCV 101.3 fL (80.0-100.0); Macrocytosis Slight; Mean Platelet Volume 8.7; Platelet Count 215 k/uL (150-450); RBC 2.46 m/uL (3.80-5.40); RDW 15.4 % (11.5-15.5)
[2018-07-05 06:27] LABS: Glucose,Whole Blood 232 mg/dL (75-99)
[2018-07-05 06:37] LABS: Calcium 8.4 mg/dL (8.4-10.2); Magnesium 2.6 mg/dL (1.6-2.3); Potassium 4.9 mmol/L (3.5-5.1)
[2018-07-05] MEDS: INSULIN ASPART (NovoLOG) 100 UNIT/ML VIAL SQ SCH ×2 (07:03)
[2018-07-05] MEDS: IPRATROPIUM-ALBUTEROL 3 ML NEB INHALATION SCH (08:42)
--- NOTE | 2018-07-05 08:48 | P.PN ---
Subjective Progress Note Date: 07/04/18 Principal diagnosis: Acute exacerbation of COPD, shortness of breath, chronic systolic heart failure A 47-year-old female patient with known history of COPD and chronic smoker in addition to diabetes mellitus and chronic renal failure and peripheral vascular disease with a previous fem-pop bypass surgery was performed in 2012. The patient also has hyperlipidemia and hypertension and carotid artery disease and she is a chronic smoker. The patient presented to the hospital because of worsening shortness of breath. The patient was actively bronchospastic and wheezy. She was placed on BiPAP for respiratory support. White cell count was at 14 with a hemoglobin of 8.2. Her serum creatinine is chronically elevated at 2.2 which is stable. 3. Troponin negative. ProBNP level was 10,002 100. Echo from earlier evaluation showed an ejection fraction of 45-50% with severe MR and mild MR. The patient was treated with accommodation bronchodilators and systemic steroids. The patient is currently on oral prednisone. The patient is less bronchospastic and wheezy. No significant sputum production. She is receiving Lasix 40 mg IV push every 8 hours. Sugar was noted to be elevated this morning and the patient was started back on her insulin which includes Levemir and NovoLog according to the skin and with meals. On 07/04/2018 patient seen in follow-up on selective care unit. She is awake and alert, oriented 3, she did require BiPAP support last night, currently on nasal cannula 3 L per nasal cannula her pulse ox is 96%. She still feels congested, but unable to bring up any sputum. She is on empiric antibiotics in the form of Levaquin, she is on prednisone 40 mg daily, oral Lasix 60 mg twice daily, fluid balance is difficult to estimate, patient's urinary output measured in occurrences. Influenza screen was negative. No fever or chills, overall patient states her breathing is easier, but she is unable to clear any sputum. Lung sounds reveal diffuse crackles anteriorly and posteriorly in the lower lobes. Objective - Vital Signs Vital signs: Vital Signs Temp 97.8 F 07/04/18 08:00 Pulse 88 07/04/18 09:35 Resp 18 07/04/18 08:00 BP 120/68 07/04/18 08:00 Pulse Ox 96 07/04/18 08:00 Intake & Output 07/03/18 07/04/18 07/04/18 18:59 06:59 18:59 Intake Total 720 240 Output Total 400 Balance 320 240 Weight 72 kg 73.6 kg Intake: Oral 720 240 Output: Urine 400 Other: Voiding Method Bedside Commode - Exam GENERAL EXAM: Alert, pleasant, 39-year-old white female comfortable in no apparent distress. HEAD: Normocephalic/atraumatic. EYES: Normal reaction of pupils, equal size. Conjunctiva pink, sclera white. NOSE: Clear with pink turbinates. THROAT: No erythema or exudates. NECK: No masses, no JVD, no thyroid enlargement, no adenopathy. CHEST: No chest wall deformity. Symmetrical expansion. LUNGS: Equal air entry coarse crackles anteriorly and posteriorly in the lower lobes CVS: Regular rate and rhythm, normal S1 and S2, no gallops, no murmurs, no rubs ABDOMEN: Soft, nontender. No hepatosplenomegaly, normal bowel sounds, no guarding or rigidity. EXTREMITIES: No clubbing, no edema, no cyanosis, 2+ pulses and upper and lower extremities. MUSCULOSKELETAL: Muscle strength and tone normal. SPINE: No scoliosis or deformity SKIN: No rashes CENTRAL NERVOUS SYSTEM: Alert and oriented -3. No focal deficits, tone is normal in all 4 extremities. PSYCHIATRIC: Alert and oriented -3. Appropriate affect. Intact judgment and insight. - Labs CBC & Chem 7: 07/05/18 05:51 07/05/18 05:51 Labs: Abnormal Lab Results - Last 24 Hours (Table) 07/03/18 07/03/18 07/03/18 Range/Units 11:20 12:40 16:22 BUN (7-17) mg/dL Creatinine (0.52-1.04) mg/dL Glucose 564 H* (74-99) mg/dL POC Glucose (mg/dL) 569 H 513 H (75-99) mg/dL Calcium (8.4-10.2) mg/dL 07/03/18 07/04/18 07/04/18 Range/Units 20:28 01:52 05:48 BUN (7-17) mg/dL Creatinine (0.52-1.04) mg/dL Glucose (74-99) mg/dL POC Glucose (mg/dL) 182 H 114 H 158 H (75-99) mg/dL Calcium (8.4-10.2) mg/dL 07/04/18 Range/Units 08:13 BUN 80 H (7-17) mg/dL Creatinine 2.63 H (0.52-1.04) mg/dL Glucose 136 H (74-99) mg/dL POC Glucose (mg/dL) (75-99) mg/dL Calcium 8.2 L (8.4-10.2) mg/dL Assessment and Plan Plan: Assessment: 1 acute COPD exacerbation with secondary shortness of breath. The patient is currently on BiPAP for respiratory support. 2 acute on chronic systolic heart failure with an ejection fraction of 45% and moderate to severe mitral regurgitation 3 shortness of breath secondary to above 4 acute on chronic hypoxic respiratory failure 5 hypertension 6 hyperlipidemia 7 peripheral vascular disease 8 chronic kidney disease , stage III 9 diabetes mellitus with steroid-induced hyperglycemia 10 chronic anemia, likely anemia of chronic disease Plan: Continue current medical treatment, oral prednisone, nebulized bronchodilators, oral Lasix. Patient still complaining of chest congestion, unable to clear any sputum, continue Mucinex, continue with BiPAP support as needed. We'll continue to follow I performed a history & physical examination of the patient and discussed their management with my nurse practitioner, Caty Renner. I reviewed the nurse practitioner's note and agree with the documented findings and plan of care. Lung sounds are positive for coarse crackles. The findings and the impression was discussed with the patient. I attest to the documentation by the nurse practitioner. Time with Patient: Less than 30
[2018-07-05] MEDS ORDERED: FUROSEMIDE 20 MG TAB PO SCH (09:00)
--- NOTE | 2018-07-05 09:30 | P.DS ---
Providers Date of admission: 07/02/18 17:10 Expected date of discharge: 07/05/18 Attending physician: Jose Johnson MD Consults: 07/02/18 17:24 Consult Physician Stat Consulting Provider: Dustin Gibbons Consult Reason/Comments: CHF, COPD Do you want consulting provider notified?: Yes Consult Physician Stat Consulting Provider: Ananda Becerril Consult Reason/Comments: CHF Do you want consulting provider notified?: Yes Primary care physician: Tamika Pratt MD Hospital Course: Discharge Diagnosis: Acute exacerbation of systolic CHF with EF 45% Acute exacerbation of COPD DM 2 with hyperglycemia NED on CKD IV Acute hypoxic respiratory failure Tobacco abuse HTN, controlled HLD PVD Chronic anemia Hospital Course: Patient is a 47-year-old female past medical history of COPD, systolic congestive heart failure, diabetes mellitus type 2 insulin requiring, hypertension, and chronic kidney disease who presented to the emergency department for shortness of breath. Patient was recently hospitalized and discharged on 06/22/2018 for acute exacerbation of COPD, CHF, and acute kidney injury and chronic kidney disease. Patient was provided with a log for her blood sugars, home health, and multiple appointments. She did see her PCP but was unable to follow with nephrology due to rides, she was seen by home health once and believes she missed letting them in for the next several visits. On admission to the ER at this time she was found to have leukocytosis of 15.9 hemoglobin 8.8. Her d-dimer was slightly elevated at 0.67 and her creatinine was at her baseline of 2.1. She was hypoxic and saturating at 88% on room air and appeared to. She was therefore placed on BiPAP and admitted to the selective care unit. Lower extremity venous duplex were negative for DVT. It was felt that she likely did not have a PE as there is more probable diagnoses and she does smoke which was elevated her d-dimer. She was started on IV Lasix 3 times a day. She continued to diuresis well. Her creatinine increased and her lasix was held and Cr stabalized. She was seen by cardiology through out her hospitalization and her medication regiment was felt to be optimized. She has been seen by pulmonary and placed on oral steroids and levaquin. She progressed well and was up and walking in the hallways. She did not qualify for home O2. She again had sugars ranging from 120-500s. She was seen again by the nutrition educator. Case was discussed with Dr. Pratt who is concerned about compliance with TID insulin use and would like to continue glyburide and decrease admelog. Patient was informed of this plan and was in agreement. She was given verbal and written instructions on when to call Dr. Pratt. She will follow with Dr. Pratt this week, Dr. Becerril on 07/12, Dr. Gibbons, and Dr. Montelongo. She was again set up with home health. Patient is at high risk for readmission. Patient seen and examined at bedside. No chest pain, shortness of breath at baseline, up and walking in the hallways. Discussed at length plan for blood sugar monitoring, weight monitoring, and Vital signs reviewed and stable. General: non toxic, no distress, appears at stated age Derm: warm, dry Head: atraumatic, normocephalic, symmetric Eyes: EOMI, no lid lag, anicteric sclera Mouth: no lip lesion, mucus membranes moist Cardiovascular: S1S2 reg, no murmur, positive posterior tibial pulse bilateral, Lungs: wheeze right basel, no rhonchi, no rales , no accessory muscle use Abdominal: soft, nontender to palpation, no guarding, no appreciable organomegaly Ext: no gross muscle atrophy, no edema, no contractures Neuro: CN II-XI grossly intact, no focal neuro deficits Psych: Alert, oriented, appropriate affect A total of 37 minutes of time were spent preparing this complex discharge summary . Pertinent Studies: CXR- mild CHF LE venous doppler- no signs of DVT Patient Condition at Discharge: Fair Plan - Discharge Summary Discharge Rx Participant: No New Discharge Prescriptions: New Furosemide [Lasix] 20 mg PO BID #60 tab Furosemide [Lasix] 40 mg PO BID #60 tablet guaiFENesin [Mucinex] 600 mg PO Q12HR #30 tablet.er Levofloxacin [Levaquin] 250 mg PO DAILY #3 tab predniSONE 40 mg PO DAILY #10 tab Continue Clopidogrel Bisulfate [Plavix] 75 mg PO DAILY Loratadine [Claritin] 10 mg PO DAILY lamoTRIgine [LaMICtal] 25 mg PO BID Ferrous Sulfate [Iron (65 MG Elemental)] 325 mg PO DAILY Ergocalciferol (Vitamin D2) [Drisdol] 50,000 unit PO DIRECTED Citalopram Hydrobromide [CeleXA] 20 mg PO DAILY Atorvastatin [Lipitor] 80 mg PO HS Albuterol Inhaler [Ventolin Hfa Inhaler] 1 - 2 puff INHALATION RT-Q6H PRN PRN Reason: Shortness Of Breath Tiotropium [place] [Spiriva Respimat] 2 spray INHALATION RT-HS amLODIPine [Norvasc] 10 mg PO DAILY Aspirin EC [Ecotrin Low Dose] 81 mg PO DAILY Famotidine [Pepcid] 40 mg PO DAILY Isosorbide Mononitrate ER [Imdur] 60 mg PO DAILY #30 tab.er.24h Metoprolol Succinate (ER) [Toprol XL] 50 mg PO DAILY #30 tab.er.24h Albuterol Nebulized [Ventolin Nebulized] 2.5 mg INHALATION RT-Q6H PRN PRN Reason: Shortness Of Breath hydrALAZINE HCL 25 mg PO BID PRN PRN Reason: 120 OR ABOVE glipiZIDE [Glucotrol] 5 mg PO BID Varenicline Tartrate [Chantix Starter Pack] 0.5 mg PO DIRECTED Insulin Glargine,Hum.rec.anlog [Basaglar Kwikpen U-100] 20 units SQ DAILY Changed Insulin Lispro [Admelog] 8 units SQ TID-W/MEALS #0 Discontinued Furosemide [Lasix] 60 mg PO BID@0900,1600 #60 tab Discharge Medication List Clopidogrel Bisulfate [Plavix] 75 mg PO DAILY 01/21/15 [History] Ergocalciferol (Vitamin D2) [Drisdol] 50,000 unit PO DIRECTED 01/21/15 [ History] Ferrous Sulfate [Iron (65 MG Elemental)] 325 mg PO DAILY 01/21/15 [History] Loratadine [Claritin] 10 mg PO DAILY 01/21/15 [History] lamoTRIgine [LaMICtal] 25 mg PO BID 01/21/15 [History] Albuterol Inhaler [Ventolin Hfa Inhaler] 1 - 2 puff INHALATION RT-Q6H PRN [History] Atorvastatin [Lipitor] 80 mg PO HS 06/30/17 [History] Citalopram Hydrobromide [CeleXA] 20 mg PO DAILY 06/30/17 [History] Aspirin EC [Ecotrin Low Dose] 81 mg PO DAILY 06/18/18 [History] Famotidine [Pepcid] 40 mg PO DAILY 06/18/18 [History] Tiotropium [place] [Spiriva Respimat] 2 spray INHALATION RT-HS 06/18/18 [History ] amLODIPine [Norvasc] 10 mg PO DAILY 06/18/18 [History] Isosorbide Mononitrate ER [Imdur] 60 mg PO DAILY #30 tab.er.24h 06/22/18 [Rx] Metoprolol Succinate (ER) [Toprol XL] 50 mg PO DAILY #30 tab.er.24h 06/22/18 [Rx ] Albuterol Nebulized [Ventolin Nebulized] 2.5 mg INHALATION RT-Q6H PRN 07/02/18 [ History] Varenicline Tartrate [Chantix Starter Pack] 0.5 mg PO DIRECTED 07/02/18 [ History] glipiZIDE [Glucotrol] 5 mg PO BID 07/02/18 [History] hydrALAZINE HCL 25 mg PO BID PRN 07/02/18 [History] Insulin Glargine,Hum.rec.anlog [Basaglar Kwikpen U-100] 20 units SQ DAILY [History] Furosemide [Lasix] 20 mg PO BID #60 tab 07/05/18 [Rx] Furosemide [Lasix] 40 mg PO BID #60 tablet 07/05/18 [Rx] Insulin Lispro [Admelog] 8 units SQ TID-W/MEALS #0 07/05/18 [Rx] Levofloxacin [Levaquin] 250 mg PO DAILY #3 tab 07/05/18 [Rx] guaiFENesin [Mucinex] 600 mg PO Q12HR #30 tablet.er 07/05/18 [Rx] predniSONE 40 mg PO DAILY #10 tab 07/05/18 [Rx] Follow up Appointment(s)/Referral(s): Pan Mckinney MD [STAFF PHYSICIAN] - 07/12/18 11:30 am (Wednesday) Tamika Pratt MD [Primary Care Provider] - 07/13/18 2:40 pm (Wednesday -previously scheduled appointment) [facility], [NON-STAFF] - Dustin Gibbons MD [STAFF PHYSICIAN] - 08/03/18 1:00 pm (Wednesday (earliest available appointment) -appointment for 07/04/18 cancelled) Mis Montelongo MD [STAFF PHYSICIAN] - 1 Week Ananda Becerril MD [STAFF PHYSICIAN] - 1 Week Ambulatory/Diagnostic Orders: Basic Metabolic Panel [LAB.AMB] Time Frame: 3 Days, Location: None Selected Patient Instructions/Handouts: Heart Failure (DC), COPD (Chronic Obstructive Pulmonary Disease) (DC) Activity/Diet/Wound Care/Special Instructions: Heart healthy carb consistent diet 1500 mL fluid restriction activity as tolerated Call Dr. Pratt office if blood sugar is over 300 2 times in a row or less than 100. Check blood pressure twice daily, if your top number is less than 120 do not take your hydralazine Discharge Disposition: HOME WITH HOME HEALTH SERVICES
[2018-07-05] MEDS: predniSONE 20 MG TAB PO SCH (09:48)
[2018-07-05] MEDS: FERROUS SULFATE 325 MG TAB PO SCH (09:48)
[2018-07-05] MEDS: CITALOPRAM HYDROBROMIDE 20 MG TAB PO SCH (09:48)
[2018-07-05] MEDS: CLOPIDOGREL 75 MG TAB PO SCH (09:48)
[2018-07-05] MEDS: HEPARIN SODIUM,PORCINE 5,000 UNIT/ML 1 ML VIAL SQ SCH (09:49)
[2018-07-05] MEDS: ASPIRIN 81 MG PO SCH (09:49)
[2018-07-05] MEDS: amLODIPine 10 MG TAB PO SCH (09:49)
[2018-07-05] MEDS: METOPROLOL SUCCINATE (ER) 50 MG TAB.ER.24H PO SCH (09:49)
[2018-07-05] MEDS: guaiFENesin 600 MG TABLET.ER PO SCH (09:49)
[2018-07-05] MEDS: LEVOFLOXACIN 250 MG TAB PO SCH (09:49)
[2018-07-05] MEDS: hydrALAZINE HCL 25 MG TAB PO SCH (09:49)
[2018-07-05] MEDS: ISOSORBIDE MONONITRATE ER 60 MG TAB.ER.24H PO SCH (09:49)
[2018-07-05] MEDS: lamoTRIgine 25 MG TAB PO SCH (09:49)
[2018-07-05 09:52] VITALS: BP 136/70; PULSE 77; RESP 17; TEMP 97.2
--- NOTE | 2018-07-05 14:05 | P.PN ---
Subjective Progress Note Date: 07/05/18 This is a pleasant 47-year-old female past medical history significant for COPD, severe peripheral vascular disease status post fem-pop bypass surgery in 2012, carotid artery stenosis, hypertension, diabetes mellitus, dyslipidemia and chronic nicotine dependence. She was recently discharged from the hospital on June 22 with pneumonia and heart failure. She came back due to increased shortness of breath and lower extremity edema that has been getting progressively worse over the last couple of days. She denies chest pain, palpitations, dizziness, nausea or vomiting. She is seen and examined sitting up in bed in no acute distress. Currently maintained on lasix 40 mg IV TID, amlodipine 10 mg daily, aspirin 81 mg daily, atorvastatin 80 mg daily, plavix 75 mg daily, toprol 50 mg daily and imdur 60 mg daily. EKG reveals sinus mechanism with right axis deviation and poor R-wave progression. Chest xray reveals mild congestive heart failure on change compared to previous exam with small pleural effusions noted. Laboratory data reviewed, WBC 14, hemoglobin 8.2, platelets 206, sodium 138, potassium 5.2, creatinine 2.24, troponin negative 3, NT proBNP 10,200. Echocardiogram obtained earlier this month reveals mildly impaired left ventricular systolic function with ejection fraction 45-50%, severe mitral regurgitation and mild tricuspid regurgitation noted. 07/04/2018 Patient was seen and examined this morning, feeling well overall. Creatinine is up to 2.6 today from 2.2 yesterday, on oral diuretics. Patient states she still is urinating quite a bit. We will hold her Lasix today, check her lytes BUN and creatinine in the morning. 07/05/2018 Patient seen and examined today, overall doing well. Blood pressure 136/70 with a heart rate in the 70s 95% on room air. White blood cell count 14, hemoglobin 7.8, platelet count 2:15. Sodium 138, potassium 4.9, BUN 92 and creatinine 2.5. Objective - Vital Signs Vital signs: Vital Signs Temp 97.2 F L 07/05/18 08:00 Pulse 92 07/05/18 08:55 Resp 17 07/05/18 08:00 BP 136/70 07/05/18 08:00 Pulse Ox 95 07/05/18 08:00 Intake & Output 07/04/18 07/05/18 07/05/18 18:59 06:59 18:59 Intake Total 480 240 240 Balance 480 240 240 Weight 74.6 kg Intake: Oral 480 240 240 Other: Voiding Method Toilet Toilet - Exam GENERAL: This is a 47-year-old femalein no apparent distress at the time of my examination. HEENT: Head is atraumatic, normocephalic. Pupils are equal, round. Sclerae anicteric. Conjunctivae are clear. Mucous membranes of the mouth are moist. Neck is supple. There is no jugular venous distention. No carotid bruit is heard. LUNGS: bibasilar rales, coarse rhonchi scattered and expiratory wheezes noted.No chest wall tenderness is noted on palpation or with deep breathing. HEART: Regular rate and rhythm with systolic ejection murmur at the left sternal border, no rubs or gallops. S1 and S2 heard. ABDOMEN: Soft, nontender. Bowel sounds are heard. No organomegaly noted. EXTREMITIES: Trace bilateral lower extremity edema, non-pitting. No calf tende rness noted. VASCULAR: Radial and dorsalis pedis pulses palpated, no evidence of clubbing. NEUROLOGIC: Patient is awake, alert and oriented x3. - Labs CBC & Chem 7: 07/05/18 05:51 07/05/18 05:51 Labs: Abnormal Lab Results - Last 24 Hours (Table) 07/03/18 07/04/18 07/04/18 Range/Units 02:30 16:39 20:22 WBC (3.8-10.6) k/uL RBC (3.80-5.40) m/uL Hgb (11.4-16.0) gm/dL Hct (34.0-46.0) % MCV (80.0-100.0) fL BUN (7-17) mg/dL Creatinine (0.52-1.04) mg/dL Glucose (74-99) mg/dL POC Glucose (mg/dL) 171 H 318 H (75-99) mg/dL Hemoglobin A1c 7.9 H (4.0-6.0) % Magnesium (1.6-2.3) mg/dL 07/05/18 07/05/18 07/05/18 Range/Units 01:58 02:16 05:51 WBC 14.0 H (3.8-10.6) k/uL RBC 2.46 L (3.80-5.40) m/uL Hgb 7.8 L (11.4-16.0) gm/dL Hct 24.9 L (34.0-46.0) % MCV 101.3 H (80.0-100.0) fL BUN (7-17) mg/dL Creatinine (0.52-1.04) mg/dL Glucose (74-99) mg/dL POC Glucose (mg/dL) 244 H 230 H (75-99) mg/dL Hemoglobin A1c (4.0-6.0) % Magnesium (1.6-2.3) mg/dL 07/05/18 07/05/18 Range/Units 05:51 06:26 WBC (3.8-10.6) k/uL RBC (3.80-5.40) m/uL Hgb (11.4-16.0) gm/dL Hct (34.0-46.0) % MCV (80.0-100.0) fL BUN 92 H (7-17) mg/dL Creatinine 2.58 H (0.52-1.04) mg/dL Glucose 210 H (74-99) mg/dL POC Glucose (mg/dL) 232 H (75-99) mg/dL Hemoglobin A1c (4.0-6.0) % Magnesium 2.6 H (1.6-2.3) mg/dL Assessment and Plan Plan: ASSESSMENT and plan Acute on chronic diastolic heart failure acute exacerbation of chronic COPD Acute on chronic hypoxic respiratory failure Anemia of unknown etiology Leukocytosis Hypertension Dyslipidemia Severe peripheral vascular disease Mitral regurgitation Plan From cardiology's perspective, patient may be able to be discharged, we'll monitor outpatient lytes BUN and creatinine closely. Patient has given significant amount of education regarding the importance of medication compliance as an outpatient. DNP note has been reviewed, I agree with a documented findings and plan of care. Patient was seen and examined.
--- NOTE | 2018-07-05 14:40 | P.PN ---
Subjective Progress Note Date: 07/05/18 Principal diagnosis: Acute exacerbation of COPD, shortness of breath, chronic systolic heart failure A 47-year-old female patient with known history of COPD and chronic smoker in addition to diabetes mellitus and chronic renal failure and peripheral vascular disease with a previous fem-pop bypass surgery was performed in 2012. The patient also has hyperlipidemia and hypertension and carotid artery disease and she is a chronic smoker. The patient presented to the hospital because of worsening shortness of breath. The patient was actively bronchospastic and wheezy. She was placed on BiPAP for respiratory support. White cell count was at 14 with a hemoglobin of 8.2. Her serum creatinine is chronically elevated at 2.2 which is stable. 3. Troponin negative. ProBNP level was 10,002 100. Echo from earlier evaluation showed an ejection fraction of 45-50% with severe MR and mild MR. The patient was treated with accommodation bronchodilators and systemic steroids. The patient is currently on oral prednisone. The patient is less bronchospastic and wheezy. No significant sputum production. She is receiving Lasix 40 mg IV push every 8 hours. Sugar was noted to be elevated this morning and the patient was started back on her insulin which includes Levemir and NovoLog according to the skin and with meals. On 07/04/2018 patient seen in follow-up on selective care unit. She is awake and alert, oriented 3, she did require BiPAP support last night, currently on nasal cannula 3 L per nasal cannula her pulse ox is 96%. She still feels congested, but unable to bring up any sputum. She is on empiric antibiotics in the form of Levaquin, she is on prednisone 40 mg daily, oral Lasix 60 mg twice daily, fluid balance is difficult to estimate, patient's urinary output measured in occurrences. Influenza screen was negative. No fever or chills, overall patient states her breathing is easier, but she is unable to clear any sputum. Lung sounds reveal diffuse crackles anteriorly and posteriorly in the lower lobes. On 07/05/2018 patient is seen again on selective care unit, she is fully dressed , she is being discharged home. room air pulse ox is 95%, patient did not require BiPAP support last night, she is afebrile, on sounds reveal some scattered rhonchi, but no significant wheezing, she has been treated with oral prednisone, Levaquin, oral Lasix, tolerating ambulation, no acute events overnight. Today's labs have been noted, white blood cell count is 14.0, hemoglobin is 7.8, electrolytes were within normal limits, BUN is 92 creatinine is 2.58 Objective - Vital Signs Vital signs: Vital Signs Temp 97.2 F L 07/05/18 08:00 Pulse 92 07/05/18 08:55 Resp 17 07/05/18 08:00 BP 136/70 07/05/18 08:00 Pulse Ox 95 07/05/18 08:00 Intake & Output 07/04/18 07/05/18 07/05/18 18:59 06:59 18:59 Intake Total 480 240 240 Balance 480 240 240 Weight 74.6 kg Intake: Oral 480 240 240 Other: Voiding Method Toilet Toilet - Exam GENERAL EXAM: Alert, pleasant, 39-year-old white female comfortable in no apparent distress. HEAD: Normocephalic/atraumatic. EYES: Normal reaction of pupils, equal size. Conjunctiva pink, sclera white. NOSE: Clear with pink turbinates. THROAT: No erythema or exudates. NECK: No masses, no JVD, no thyroid enlargement, no adenopathy. CHEST: No chest wall deformity. Symmetrical expansion. LUNGS: Equal air entry coarse crackles anteriorly and posteriorly in the lower lobes CVS: Regular rate and rhythm, normal S1 and S2, no gallops, no murmurs, no rubs ABDOMEN: Soft, nontender. No hepatosplenomegaly, normal bowel sounds, no guarding or rigidity. EXTREMITIES: No clubbing, no edema, no cyanosis, 2+ pulses and upper and lower extremities. MUSCULOSKELETAL: Muscle strength and tone normal. SPINE: No scoliosis or deformity SKIN: No rashes CENTRAL NERVOUS SYSTEM: Alert and oriented -3. No focal deficits, tone is normal in all 4 extremities. PSYCHIATRIC: Alert and oriented -3. Appropriate affect. Intact judgment and insight. - Labs CBC & Chem 7: 07/05/18 05:51 07/05/18 05:51 Labs: Abnormal Lab Results - Last 24 Hours (Table) 07/03/18 07/04/18 07/04/18 Range/Units 02:30 16:39 20:22 WBC (3.8-10.6) k/uL RBC (3.80-5.40) m/uL Hgb (11.4-16.0) gm/dL Hct (34.0-46.0) % MCV (80.0-100.0) fL BUN (7-17) mg/dL Creatinine (0.52-1.04) mg/dL Glucose (74-99) mg/dL POC Glucose (mg/dL) 171 H 318 H (75-99) mg/dL Hemoglobin A1c 7.9 H (4.0-6.0) % Magnesium (1.6-2.3) mg/dL 07/05/18 07/05/18 07/05/18 Range/Units 01:58 02:16 05:51 WBC 14.0 H (3.8-10.6) k/uL RBC 2.46 L (3.80-5.40) m/uL Hgb 7.8 L (11.4-16.0) gm/dL Hct 24.9 L (34.0-46.0) % MCV 101.3 H (80.0-100.0) fL BUN (7-17) mg/dL Creatinine (0.52-1.04) mg/dL Glucose (74-99) mg/dL POC Glucose (mg/dL) 244 H 230 H (75-99) mg/dL Hemoglobin A1c (4.0-6.0) % Magnesium (1.6-2.3) mg/dL 07/05/18 07/05/18 Range/Units 05:51 06:26 WBC (3.8-10.6) k/uL RBC (3.80-5.40) m/uL Hgb (11.4-16.0) gm/dL Hct (34.0-46.0) % MCV (80.0-100.0) fL BUN 92 H (7-17) mg/dL Creatinine 2.58 H (0.52-1.04) mg/dL Glucose 210 H (74-99) mg/dL POC Glucose (mg/dL) 232 H (75-99) mg/dL Hemoglobin A1c (4.0-6.0) % Magnesium 2.6 H (1.6-2.3) mg/dL Assessment and Plan Plan: Assessment: 1 acute COPD exacerbation with secondary shortness of breath. improving 2 acute on chronic systolic heart failure with an ejection fraction of 45% and moderate to severe mitral regurgitation 3 shortness of breath secondary to above 4 acute on chronic hypoxic respiratory failure 5 hypertension 6 hyperlipidemia 7 peripheral vascular disease 8 chronic kidney disease , stage III 9 diabetes mellitus with steroid-induced hyperglycemia 10 chronic anemia, likely anemia of chronic disease Plan: patient is being discharged home today, she has been treated with oral prednisone, oral antibiotics, she is afebrile, room air pulse ox is 95%, overall her dyspnea is improved, no acute events overnight, no worsening shortness of breath or chest pain. Follow-up with Dr. Gibbons in the office in 7-10 days. I performed a history & physical examination of the patient and discussed their management with my nurse practitioner, Caty Renner. I reviewed the nurse practitioner's note and agree with the documented findings and plan of care. Lung sounds are positive for coarse crackles. The findings and the impression was discussed with the patient. I attest to the documentation by the nurse practitioner. Time with Patient: Less than 30
== END 2018-07-05 11:41 | disposition home health service (06) | DRG 291 ==
LOC: EC 14:12 → 3SCARD 17:10
PROVIDERS: ADMIT Family Medicine; ATTEND Family Medicine
PROC: 5A09457 Assistance with Respiratory Ventilation, 24-96 Consecutive Hours, Continuous Positive Airway Pressure (ICD-10-PCS; principal; 2018-07-02)
DX: I13.0 Hypertensive heart and chronic kidney disease with heart failure and stage 1 through stage 4 chronic kidney disease, or unspecified chronic kidney disease (principal); I50.23 Acute on chronic systolic (congestive) heart failure; J96.21 Acute and chronic respiratory failure with hypoxia; N17.9 Acute kidney failure, unspecified; N18.4 Chronic kidney disease, stage 4 (severe); J44.1 Chronic obstructive pulmonary disease with (acute) exacerbation; E11.22 Type 2 diabetes mellitus with diabetic chronic kidney disease; E11.51 Type 2 diabetes mellitus with diabetic peripheral angiopathy without gangrene; I65.29 Occlusion and stenosis of unspecified carotid artery; E87.5 Hyperkalemia; I08.1 Rheumatic disorders of both mitral and tricuspid valves; E11.65 Type 2 diabetes mellitus with hyperglycemia; E78.5 Hyperlipidemia, unspecified; F41.9 Anxiety disorder, unspecified; F32.9 Major depressive disorder, single episode, unspecified; F17.200 Nicotine dependence, unspecified, uncomplicated; D63.8 Anemia in other chronic diseases classified elsewhere; D72.829 Elevated white blood cell count, unspecified; R79.1 Abnormal coagulation profile; Z71.3 Dietary counseling and surveillance; E66.9 Obesity, unspecified; Z68.28 Body mass index [BMI] 28.0-28.9, adult; T38.0X5A Adverse effect of glucocorticoids and synthetic analogues, initial encounter; Z79.02 Long term (current) use of antithrombotics/antiplatelets; Z79.899 Other long term (current) drug therapy; Z79.82 Long term (current) use of aspirin; Z79.4 Long term (current) use of insulin; Z90.49 Acquired absence of other specified parts of digestive tract; Z85.6 Personal history of leukemia; Z98.51 Tubal ligation status; Z87.01 Personal history of pneumonia (recurrent); Z95.828 Presence of other vascular implants and grafts; Z86.73 Personal history of transient ischemic attack (TIA), and cerebral infarction without residual deficits; Z80.3 Family history of malignant neoplasm of breast; Z83.3 Family history of diabetes mellitus; Z82.49 Family history of ischemic heart disease and other diseases of the circulatory system
CPT/HCPCS: 36415; 71046; 80048; 80053; 81001; 82947; 83036; 83735; 83880; 84484; 85025; 85027; 85379; 85610; 85730; 87502; 93005; 93970; 94640; 94660; 94667; 94760; 96361; 96374; 96375; 99291

== ENCOUNTER → 2018-08-30 | Outpatient (CLI) | payer OTHER ==
[2018-08-30 14:09] VITALS: BP 145/68; PULSE 60; RESP 16; TEMP 98.7; BMI 26.6
--- NOTE | 2018-08-30 15:09 | P.HPOB ---
History of Present Illness H&P Date: 08/30/18 Chief Complaint: The patient is here for her routine gynecologic exam and ma mmogram. This is a 48-year-old with an LMP of 07/23/2018. The patient is status post tubal ligation. At her last annual exam on 08/25/2017, a suspicious left vulvar lesion was noted. I had recommended a vulvar biopsy at that time. The patient did not have this done in states that she was anxious about it and had lots of things going on at that time in her life. She believes the lesion has grown slightly. She is otherwise without gynecologic complaints. Review of Systems Weight has been stable. She denies respiratory, cardiac, or G.I. problems. Past Medical History Past Medical History: Cancer, Heart Failure, COPD, CVA/TIA, Diabetes Mellitus, Hyperlipidemia, Hypertension, Renal Disease, Vascular Disorder Additional Past Medical History / Comment(s): CHF, valvular heart disease with MR, peripheral vascular disease, hypertension, hyperlipidemia, COPD, diabetes mellitusII. Leukemia. Renal failure. 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 PAST RECORDS MANAGER HISTORY: She has no history of STDs. History of Any Multi-Drug Resistant Organisms: None Reported Past Surgical History: Appendectomy, Bowel Resection, Orthopedic Surgery, Tubal Ligation Additional Past Surgical History / Comment(s): Hx of colostomy and reversal,rotator cuff repair on Left,hx of bifem bypass. Colonoscopy 2012 Past Anesthesia/Blood Transfusion Reactions: No Reported Reaction Past Psychological History: Anxiety, Depression Smoking Status: Former smoker Past Alcohol Use History: None Reported Additional Past Alcohol Use History / Comment(s): patient's family states she quit smoking 2 days ago. Past Drug Use History: Marijuana Additional History: The patient states she quit smoking on 07/05/2018. She is and is not seen anybody at this time and is not been sexually active recently. She does not work outside the home. - Past Family History Mother Family Medical History: Congestive Heart Failure (CHF), Diabetes Mellitus Brother(s) Additional Family Medical History / Comment(s): CABG Sister(s) Family Medical History: CVA/TIA Additional Family Medical History / Comment(s): Maternal aunt had breast cancer. Medications and Allergies Home Medications Medication Instructions Recorded Confirmed Type Clopidogrel Bisulfate [Plavix] 75 mg PO DAILY 01/21/15 08/30/18 History Ergocalciferol (Vitamin D2) 50,000 unit PO DIRECTED 01/21/15 08/30/18 History [Drisdol] Ferrous Sulfate [Iron (65 MG 325 mg PO DAILY 01/21/15 08/30/18 History Elemental)] Loratadine [Claritin] 10 mg PO DAILY 01/21/15 08/30/18 History lamoTRIgine [LaMICtal] 25 mg PO BID 01/21/15 08/30/18 History Albuterol Inhaler [Ventolin Hfa 1 - 2 puff INHALATION RT-Q6H PRN 06/30/17 08/30/18 History Inhaler] Atorvastatin [Lipitor] 80 mg PO HS 06/30/17 08/30/18 History Citalopram Hydrobromide [CeleXA] 20 mg PO DAILY 06/30/17 08/30/18 History Aspirin EC [Ecotrin Low Dose] 81 mg PO DAILY 06/18/18 08/30/18 History Famotidine [Pepcid] 40 mg PO DAILY 06/18/18 08/30/18 History amLODIPine [Norvasc] 10 mg PO DAILY 06/18/18 08/30/18 History Isosorbide Mononitrate ER [Imdur] 60 mg PO DAILY #30 tab.er.24h 06/22/18 08/30/18 Rx Metoprolol Succinate (ER) [Toprol 50 mg PO DAILY #30 tab.er.24h 06/22/18 08/30/18 Rx XL] Albuterol Nebulized [Ventolin 2.5 mg INHALATION RT-Q6H PRN 07/02/18 08/30/18 History Nebulized] Varenicline Tartrate [Chantix 0.5 mg PO DIRECTED 07/02/18 08/30/18 History Starter Pack] glipiZIDE [Glucotrol] 5 mg PO BID 07/02/18 08/30/18 History hydrALAZINE HCL 25 mg PO BID PRN 07/02/18 08/30/18 History Insulin Glargine,Hum.rec.anlog 20 units SQ DAILY 07/03/18 08/30/18 History [Basaglar Kwikpen U-100] Furosemide [Lasix] 20 mg PO BID #60 tab 07/05/18 08/30/18 Rx Furosemide [Lasix] 40 mg PO BID #60 tablet 07/05/18 08/30/18 Rx Allopurinol [Zyloprim] 100 mg PO DAILY 08/30/18 08/30/18 History Allergies Allergy/AdvReac Type Severity Reaction Status Date / Time bee venom protein (honey bee) Allergy Rash/Hives Verified 08/30/18 13:56 Penicillins Allergy Rash/Hives Verified 08/30/18 13:56 Exam Vital Signs Temp Pulse Resp BP Pulse Ox 08/30/18 13:57 98.7 F 60 16 145/68 96 Intake and Output 08/29/18 08/30/18 08/30/18 22:59 06:59 14:59 Other: Weight 70.307 kg Height 5'4", weight 155 pounds, BMI 26.6. This is a well-developed well-nourished white female who is alert and oriented times 3 in no acute distress. HEENT: Within normal limits. NECK: Supple without mass or thyromegaly. CHEST AND LUNGS: Clear to auscultation. HEART: Regular rate and rhythm. BREASTS: Are without mass or discharge. AXILLARY EXAM: Negative for adenopathy. BACK: Negative for CVA tenderness. ABDOMEN: Soft, nontender, without palpable masses. PELVIC EXAM: external genitalia reveals a vulvar lesion at the posterior aspect of the introitus left of the midline. The main part of the lesion measures approximately 1.6 x 0.5 x 0.5 cm. There are 2 small round areas that appear similar proximal toward the vagina each measuring approximately 3 mm. The lesions all appear with some leukoplakia and are soft and nontender.. Cervix and vagina appear normal with mild atrophy. There is no unusual discharge. There is no evidence of prolapse. The uterus is midposition, nongravid size and nontender. There are no palpable adnexal masses or tenderness. RECTAL EXAM: rectovaginal exam is negative for mass or tenderness and is negative for occult blood. EXTREMITIES: Nontender. IMPRESSION: 1. 48 year old female with suspicious left vulvar lesion measuring approximately 1.6 x 0.5 x 0.5 cm. The base appears somewhat irregular especially on the vaginal side of the lesion. This seems to have grown over the past year. The patient did not come in for the biopsy as recommended last year because of some anxiety, but she states she will come in to have this done. 2. Multiple medical problems. PLAN: 1. Pap smear was deferred since she had a negative one on 08/25/2017. 2. Self breast awareness was discussed with the patient. 3. Screening mammogram will be done today. 4. The patient will return for a vulvar biopsy in the near future. I have stressed the importance of having this done. We have discussed possible findings including vulvar malignancy, precancerous lesion, and benign lesion. She understands that referral for future treatment may be necessary. 5. She was also advised to return in one year for her annual well woman exam and PRN.
--- NOTE | 2018-08-31 12:20 | MM ---
Reason for exam: screening (asymptomatic). Last mammogram was performed 1 year ago. History: Patient history of other cancer. Family history of premenopausal breast cancer in maternal aunt at age 36. Benign cyst aspiration of the right breast, 2008. Physical Findings: A clinical breast exam by your physician is recommended on an annual basis and results should be correlated with mammographic findings. MG Screening Mammo w CAD Bilateral CC and MLO view(s) were taken. Prior study comparison: August 25, 2017, bilateral MG screening mammo w CAD. August 05, 2016, bilateral MG screening mammo w CAD. The breast tissue is heterogeneously dense. This may lower the sensitivity of mammography. Stable benign calcifications. No significant changes when compared with prior studies. ASSESSMENT: Benign, BI-RAD 2 RECOMMENDATION: Routine screening mammogram of both breasts in 1 year.
== END ==
LOC: WWCWWP 13:28
PROVIDERS: ATTEND Obstetrics & Gynecology
DX: Z12.31 Encounter for screening mammogram for malignant neoplasm of breast (principal)
CPT/HCPCS: 77067

== ENCOUNTER → 2018-09-14 | Outpatient (CLI) | payer OTHER ==
--- NOTE | 2018-09-14 13:17 | P.PCN ---
Date of Procedure: 09/14/18 Preoperative Diagnosis: Suspicious left vulvar lesion Postoperative Diagnosis: Same Procedure(s) Performed: Biopsy of left vulvar lesion Anesthesia: local Surgeon: Galen Milton Estimated Blood Loss (ml): 1 Pathology: other (Left vulvar lesion biopsy) Condition: stable Disposition: same day Indications for Procedure: This was a 48-year-old female who was found to have a suspicious left posterior vulvar lesion which was found at the time of a routine pelvic examination on 08/25/2017. Vulvar biopsy was recommended at that time. The patient did not have this done at that time, because she states she had many things going on in her life at that time. She believes it has gotten slightly larger and now has agreed to having the biopsy done. Operative Findings: Left posterior vulvar lesion near the junction between the perineum and introitus measuring approximately 1.5 x 1.0 x 0.5 cm. The lesion is raised and has areas of leukoplakia with slightly irregular borders. Description of Procedure: The procedure was described to the patient including possible risks and complications. All questions were answered. The patient was placed in the lithotomy position. Betadine was used to prep the lesion. Approximately 1 mL of 1% lidocaine was used for local anesthesia. Following determination of adequate anesthesia, a cervical biopsy instrument was used to biopsy the center of the lesion. Munsell solution and a silver nitrate stick were used to obtain hemostasis. Antibiotic ointment was applied. The specimen was sent for pathological examination. The patient tolerated the procedure well. The estimated the loss was 1 mL. There were no complications. Postprocedure blood pressure was 168/68 and the pulse was 57. The patient was instructed to apply Neosporin on the area BID until the area is healed. She was instructed to call if she has problems.
== END ==
LOC: WWCWWP 11:58
PROVIDERS: ATTEND Obstetrics & Gynecology
DX: N89.1 Moderate vaginal dysplasia (principal)
CPT/HCPCS: 88305

== ENCOUNTER 2018-10-08 19:23 | Inpatient (IN) | payer OTHER ==
[2018-10-08] MEDS ORDERED: ASPIRIN 81 MG PO STA (20:27)
[2018-10-08] MEDS ORDERED: SODIUM CHLORIDE 0.9% 500 ML 500 ML IV STA (20:27)
[2018-10-08] MEDS ORDERED: IPRATROPIUM-ALBUTEROL 3 ML NEB INHALATION STA (20:55)
[2018-10-08 21:00] LABS: Appearance,Urine Cloudy (Clear); Bilirubin,Urine Negative (Negative); Blood,Urine Negative (Negative); Color,Urine Colorless; Glucose,Urine (UA) Negative (Negative); Hyaline Casts,Urine 6 /lpf (0-2); Ketones,Urine Negative (Negative); Leukocyte Esterase,Urine Large (Negative); Mucus,Urine Rare /hpf; Nitrite,Urine Negative (Negative); PH, Urine 5.5 (5.0-8.0); Protein,Urine 2+ (Negative); RBC,Urine 13 /hpf (0-5); Specific Gravity,Urine 1.006 (1.001-1.035); Squamous Epithelial Cell,Urine 19 /hpf (0-4); Urobilinogen,Urine <2.0 mg/dL (<2.0); WBC,Urine 19 /hpf (0-5)
--- NOTE | 2018-10-08 21:16 | XR ---
EXAMINATION TYPE: XR chest 2V DATE OF EXAM: 10/08/2018 COMPARISON: 08/03/2018 HISTORY: Chest pain TECHNIQUE: Frontal and lateral views of the chest are obtained. FINDINGS: Heart and mediastinum are normal. There is some infiltrate at both lung bases and more on the right side. There is blunting of right costophrenic angle. There is no heart failure. There are c hest leads. IMPRESSION: Compared to last exam there is new bilateral lower lobe pneumonia. Small right pleural e ffusion is new. No obvious heart failure.
[2018-10-08 21:17] LABS: Anisocytosis Slight; Basophils # (A) 0.1 k/uL (0-0.2); Basophils % (A) 1 %; Eosinophils # (A) 0.5 k/uL (0-0.7); Eosinophils % (A) 6 %; HCT 25.6 % (34.0-46.0); HGB 8.5 gm/dL (11.4-16.0); Lymphocytes # (A) 0.8 k/uL (1.0-4.8); Lymphocytes % (A) 8 %; MCH 31.6 pg (25.0-35.0); MCHC 33.3 g/dL (31.0-37.0); MCV 94.8 fL (80.0-100.0); Mean Platelet Volume 8.4; Monocytes # (A) 0.5 k/uL (0-1.0); Monocytes % (A) 5 %; Neutrophils # (A) 7.6 k/uL (1.3-7.7); Neutrophils % (A) 80 %; Platelet Count 232 k/uL (150-450); RBC 2.71 m/uL (3.80-5.40); RDW 16.7 % (11.5-15.5); WBC 9.6 k/uL (3.8-10.6)
[2018-10-08 21:18] LABS: Albumin 3.7 g/dL (3.5-5.0); Calcium 9.2 mg/dL (8.4-10.2); Magnesium 2.2 mg/dL (1.6-2.3); Potassium 3.9 mmol/L (3.5-5.1); Total Bilirubin 0.6 mg/dL (0.2-1.3); Total Protein 6.3 g/dL (6.3-8.2)
[2018-10-08] MEDS ORDERED: LEVOFLOXACIN 750MG-D5W PMX 750 MG in DEXTROSE/WATER 1 150ML.BAG IVPB STA (21:30)
[2018-10-08] MEDS ORDERED: SODIUM CHLORIDE 0.9% 1,000 ML IV STA (21:33)
[2018-10-08 21:43] LABS: Partial Thromboplastin Time 23.9 sec (22.0-30.0); Prothrombin Time 10.4 sec (9.0-12.0)
[2018-10-08 21:47] LABS: D-Dimer 1.02 mg/L FEU (<0.60)
--- NOTE | 2018-10-08 23:51 | ED ---
General Adult HPI - General Chief complaint: Shortness of Breath Stated complaint: ALEENA Time Seen by Provider: 10/08/18 20:23 Source: patient, RN notes reviewed, old records reviewed Mode of arrival: ambulatory Limitations: no limitations - History of Present Illness Initial comments: 48-year-old female patient with past history of CHF, COPD, type 2 diabetes, hypertension, chronic kidney disease presents to ED approximately 3 days of shortness of breath and cough. Patient was that she has had some substernal chest pain with coughing. Patient denies any chest pain at rest. They state that she does have worsening shortness of breath. Patient this feels similar to the COPD she has experienced in the past. Patient denies any other complaints at this time. Systemic: Pt denies fatigue, fever/chills, rash. Pt denies weakness, night sweats, weight loss. Neuro: Pt denies headache, visual disturbances, syncope or pre-syncope. HEENT: Pt denies ocular discharge or irritation, otalgia, rhinorrhea, pharyngitis or notable lymphadenopathy. Cardiopulmonary: Pt denies heart palpitations, dyspnea on exertion. Abdominal/GI: Pt denies abdominal pain, n/v/d. : Pt denies dysuria, burning w/ urination, frequency/urgency. Denies new onset urinary or bowel incontinence. MSK: Pt denies myalgia, loss of strength or function in extremities. Neuro: Pt denies new onset weakness, paresthesias. - Related Data Home Medications Medication Instructions Recorded Confirmed Clopidogrel Bisulfate [Plavix] 75 mg PO DAILY 01/21/15 10/08/18 Ergocalciferol (Vitamin D2) 50,000 unit PO Q14D 01/21/15 10/08/18 [Drisdol] Ferrous Sulfate [Iron (65 MG 325 mg PO DAILY 01/21/15 10/08/18 Elemental)] Loratadine [Claritin] 10 mg PO DAILY 01/21/15 10/08/18 lamoTRIgine [LaMICtal] 25 mg PO BID 01/21/15 10/08/18 Albuterol Inhaler [Ventolin Hfa 1 - 2 puff INHALATION RT-Q6H PRN 06/30/17 10/08/18 Inhaler] Atorvastatin [Lipitor] 80 mg PO HS 06/30/17 10/08/18 Citalopram Hydrobromide [CeleXA] 20 mg PO DAILY 06/30/17 10/08/18 Famotidine [Pepcid] 40 mg PO DAILY 06/18/18 10/08/18 amLODIPine [Norvasc] 10 mg PO DAILY 06/18/18 10/08/18 Albuterol Nebulized [Ventolin 2.5 mg INHALATION RT-Q6H PRN 07/02/18 10/08/18 Nebulized] Varenicline Tartrate [Chantix 0.5 mg PO BID 07/02/18 10/08/18 Starter Pack] hydrALAZINE HCL 25 mg PO BID 07/02/18 10/08/18 Insulin Glargine,Hum.rec.anlog 22 units SQ DAILY@1400 07/03/18 10/08/18 [Basaglar Kwikpen U-100] Allopurinol [Zyloprim] 100 mg PO DAILY 08/30/18 10/08/18 Metoprolol Succinate [Toprol XL] 100 mg PO HS 10/08/18 10/08/18 Umeclidinium [place] [Incruse 62.5 mcg INHALATION RT-HS 10/08/18 10/08/18 Ellipta] glipiZIDE [Glucotrol] 10 mg PO AC-BID 10/08/18 10/08/18 Previous Rx's Medication Instructions Recorded Isosorbide Mononitrate ER [Imdur] 60 mg PO DAILY #30 tab.er.24h 06/22/18 Furosemide [Lasix] 20 mg PO BID #60 tab 07/05/18 Furosemide [Lasix] 40 mg PO BID #60 tablet 07/05/18 Allergies Allergy/AdvReac Type Severity Reaction Status Date / Time bee venom protein (honey bee) Allergy Rash/Hives Verified 10/08/18 22:56 Penicillins Allergy Rash/Hives Verified 10/08/18 22:56 Review of Systems ROS Statement: Those systems with pertinent positive or pertinent negative responses have been documented in the HPI. ROS Other: All systems not noted in ROS Statement are negative. Past Medical History Past Medical History: Cancer, Heart Failure, COPD, CVA/TIA, Diabetes Mellitus, Hyperlipidemia, Hypertension, Renal Disease, Vascular Disorder Additional Past Medical History / Comment(s): CHF, valvular heart disease with MR, peripheral vascular disease, hypertension, hyperlipidemia, COPD, diabetes mellitusII. Leukemia. Renal failure. 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 History of Any Multi-Drug Resistant Organisms: None Reported Past Surgical History: Appendectomy, Bowel Resection, Orthopedic Surgery, Tubal Ligation Additional Past Surgical History / Comment(s): Hx of colostomy and reversal,rotator cuff repair on Left,hx of bifem bypass. Colonoscopy 2012 Past Anesthesia/Blood Transfusion Reactions: No Reported Reaction Past Psychological History: Anxiety, Depression Smoking Status: Current every day smoker Past Alcohol Use History: None Reported Past Drug Use History: Marijuana - Past Family History Mother Family Medical History: Congestive Heart Failure (CHF), Diabetes Mellitus Brother(s) Additional Family Medical History / Comment(s): CABG Sister(s) Family Medical History: CVA/TIA Additional Family Medical History / Comment(s): Maternal aunt had breast cancer. General Exam - General Exam Comments Initial Comments: Constitutional: NAD, AOX3, Pt has pleasant affect. HEENT: NC/AT, trachea midline, neck supple, no lymphadenopathy. Posterior pharynx non erythematous, without exudates. External ears appear normal, without discharge. Mucous membranes moist. Eyes PERRLA, EOM intact. There is no scleral icterus. No pallor noted. Cardiopulmonary: RRR, no murmurs, rubs or gallops, no JVD noted. Mild wheezing in anterior posterior britton, improvement after breathing treatment. No peripheral edema. Abdominal exam: Abdomen soft and non-distended. Abdomen non-tender to palpation in all 4 quadrants. Bowel sounds active in LLQ. No hepatosplenomegaly. No ecchymosis Neuro: CN II-XII grossly intact. No nuchal rigidity. No raccon eyes, no ho sign, no hemotympanum. No cervical spinal tenderness. MSK: No posterior calf tenderness bilaterally, homans sign negative bilaterally. Posterior tibialis and radial pulse +2 bilaterally. Sensation intact in upper and lower extremities. Full active ROM in upper and lower extremities, 5/5 st regnth. Limitations: no limitations Course Vital Signs 10/08/18 10/08/18 10/08/18 19:51 20:50 20:54 Temperature 98.3 F Pulse Rate 69 71 70 Pulse Rate [ Pulse Oximetery ] Respiratory 18 18 Rate Blood Pressure 99/58 100/70 109/68 Blood Pressure [Left Arm] O2 Sat by Pulse 97 98 95 Oximetry 10/08/18 10/08/18 10/08/18 21:02 21:10 22:00 Temperature Pulse Rate 70 77 69 Pulse Rate [ Pulse Oximetery ] Respiratory 16 16 18 Rate Blood Pressure 110/68 Blood Pressure [Left Arm] O2 Sat by Pulse 95 Oximetry 10/08/18 10/08/18 10/08/18 22:20 22:50 23:10 Temperature Pulse Rate 70 74 67 Pulse Rate [ Pulse Oximetery ] Respiratory 20 18 18 Rate Blood Pressure 121/77 73/58 83/60 Blood Pressure [Left Arm] O2 Sat by Pulse 94 L 95 Oximetry 10/08/18 10/08/18 10/09/18 23:30 23:40 00:10 Temperature Pulse Rate 68 69 71 Pulse Rate [ Pulse Oximetery ] Respiratory 18 17 15 Rate Blood Pressure 98/64 106/69 108/69 Blood Pressure [Left Arm] O2 Sat by Pulse 97 97 96 Oximetry 10/09/18 10/09/18 00:40 01:10 Temperature 97.7 F Pulse Rate Pulse Rate [ 60 Pulse Oximetery ] Respiratory 18 Rate Blood Pressure 112/74 Blood Pressure 105/52 [Left Arm] O2 Sat by Pulse 95 95 Oximetry Medical Decision Making - Medical Decision Making 48-year-old female patient with past history of CHF, COPD, type 2 diabetes, hypertension, chronic kidney disease presents to ED approximately 3 days of shortness of breath and cough. Patient was that she has had some substernal chest pain with coughing. Patient denies any chest pain at rest. They state that she does have worsening shortness of breath. Patient this feels similar to the COPD she has experienced in the past. Patient denies any other complaints at this time. Patient also stable, afebrile. Physical exam displayed mild wheezing, improved after breathing treatment. Laboratory investigations revealed hemoglobin of 8.5 which is around baseline. Correlation studies non- impressive. D-dimer mildly elevated at 1.0. Creatinine 2.19, baseline. Troponin negative. BNP 10,200. UA contaminated, we'll culture. Chest x-ray revealed bilateral lower lobe pneumonia. Patient started IV abx, as well as treated for COPD exacerbation and diuresis for CHF exacerbation. Case discussed in depth and patient seen by Dr. Longo. - Lab Data Result diagrams: 10/08/18 20:43 10/08/18 20:43 Lab Results 10/08/18 10/08/18 10/08/18 Range/Units 20:37 20:37 20:43 WBC 9.6 (3.8-10.6) k/uL RBC 2.71 L (3.80-5.40) m/uL Hgb 8.5 L (11.4-16.0) gm/dL Hct 25.6 L (34.0-46.0) % MCV 94.8 (80.0-100.0) fL MCH 31.6 (25.0-35.0) pg MCHC 33.3 (31.0-37.0) g/dL RDW 16.7 H (11.5-15.5) % Plt Count 232 (150-450) k/uL Neutrophils % 80 % Lymphocytes % 8 % Monocytes % 5 % Eosinophils % 6 % Basophils % 1 % Neutrophils # 7.6 (1.3-7.7) k/uL Lymphocytes # 0.8 L (1.0-4.8) k/uL Monocytes # 0.5 (0-1.0) k/uL Eosinophils # 0.5 (0-0.7) k/uL Basophils # 0.1 (0-0.2) k/uL Anisocytosis Slight PT (9.0-12.0) sec INR (<1.2) APTT (22.0-30.0) sec D-Dimer (<0.60) mg/L FEU Sodium (137-145) mmol/L Potassium (3.5-5.1) mmol/L Chloride (98-107) mmol/L Carbon Dioxide (22-30) mmol/L Anion Gap mmol/L BUN (7-17) mg/dL Creatinine (0.52-1.04) mg/dL Est GFR (CKD-EPI)AfAm (>60 ml/min/1.73 sqM) Est GFR (CKD-EPI)NonAf (>60 ml/min/1.73 sqM) Glucose (74-99) mg/dL Plasma Lactic Acid Tres (0.7-2.0) mmol/L Calcium (8.4-10.2) mg/dL Magnesium (1.6-2.3) mg/dL Total Bilirubin (0.2-1.3) mg/dL AST (14-36) U/L ALT (9-52) U/L Alkaline Phosphatase (38-126) U/L Troponin I (0.000-0.034) ng/mL NT-Pro-B Natriuret Pep pg/mL Total Protein (6.3-8.2) g/dL Albumin (3.5-5.0) g/dL Urine Color Colorless Urine Appearance Cloudy H (Clear) Urine pH 5.5 (5.0-8.0) Ur Specific [place] 1.006 (1.001-1.035) Urine Protein 2+ H (Negative) Urine Glucose (UA) Negative (Negative) Urine Ketones Negative (Negative) Urine Blood Negative (Negative) Urine Nitrite Negative (Negative) Urine Bilirubin Negative (Negative) Urine Urobilinogen <2.0 (<2.0) mg/dL Ur Leukocyte Esterase Large H (Negative) Urine RBC 13 H (0-5) /hpf Urine WBC 19 H (0-5) /hpf Ur Squamous Epith Cells 19 H (0-4) /hpf Hyaline Casts 6 H (0-2) /lpf Urine Mucus Rare H (None) /hpf Urine HCG, Qual Not Detected (Not Detectd) 10/08/18 10/08/18 10/08/18 Range/Units 20:43 20:43 20:43 WBC (3.8-10.6) k/uL RBC (3.80-5.40) m/uL Hgb (11.4-16.0) gm/dL Hct (34.0-46.0) % MCV (80.0-100.0) fL MCH (25.0-35.0) pg MCHC (31.0-37.0) g/dL RDW (11.5-15.5) % Plt Count (150-450) k/uL Neutrophils % % Lymphocytes % % Monocytes % % Eosinophils % % Basophils % % Neutrophils # (1.3-7.7) k/uL Lymphocytes # (1.0-4.8) k/uL Monocytes # (0-1.0) k/uL Eosinophils # (0-0.7) k/uL Basophils # (0-0.2) k/uL Anisocytosis PT 10.4 (9.0-12.0) sec INR 1.0 (<1.2) APTT 23.9 (22.0-30.0) sec D-Dimer 1.02 H (<0.60) mg/L FEU Sodium 138 (137-145) mmol/L Potassium 3.9 (3.5-5.1) mmol/L Chloride 110 H (98-107) mmol/L Carbon Dioxide 20 L (22-30) mmol/L Anion Gap 8 mmol/L BUN 47 H (7-17) mg/dL Creatinine 2.19 H (0.52-1.04) mg/dL Est GFR (CKD-EPI)AfAm 30 (>60 ml/min/1.73 sqM) Est GFR (CKD-EPI)NonAf 26 (>60 ml/min/1.73 sqM) Glucose 202 H (74-99) mg/dL Plasma Lactic Acid Tres (0.7-2.0) mmol/L Calcium 9.2 (8.4-10.2) mg/dL Magnesium 2.2 (1.6-2.3) mg/dL Total Bilirubin 0.6 (0.2-1.3) mg/dL AST 40 H (14-36) U/L ALT 52 (9-52) U/L Alkaline Phosphatase 132 H (38-126) U/L Troponin I (0.000-0.034) ng/mL NT-Pro-B Natriuret Pep 98608 pg/mL Total Protein 6.3 (6.3-8.2) g/dL Albumin 3.7 (3.5-5.0) g/dL Urine Color Urine Appearance (Clear) Urine pH (5.0-8.0) Ur Specific [place] (1.001-1.035) Urine Protein (Negative) Urine Glucose (UA) (Negative) Urine Ketones (Negative) Urine Blood (Negative) Urine Nitrite (Negative) Urine Bilirubin (Negative) Urine Urobilinogen (<2.0) mg/dL Ur Leukocyte Esterase (Negative) Urine RBC (0-5) /hpf Urine WBC (0-5) /hpf Ur Squamous Epith Cells (0-4) /hpf Hyaline Casts (0-2) /lpf Urine Mucus (None) /hpf Urine HCG, Qual (Not Detectd) 10/08/18 10/08/18 Range/Units 20:43 23:48 WBC (3.8-10.6) k/uL RBC (3.80-5.40) m/uL Hgb (11.4-16.0) gm/dL Hct (34.0-46.0) % MCV (80.0-100.0) fL MCH (25.0-35.0) pg MCHC (31.0-37.0) g/dL RDW (11.5-15.5) % Plt Count (150-450) k/uL Neutrophils % % Lymphocytes % % Monocytes % % Eosinophils % % Basophils % % Neutrophils # (1.3-7.7) k/uL Lymphocytes # (1.0-4.8) k/uL Monocytes # (0-1.0) k/uL Eosinophils # (0-0.7) k/uL Basophils # (0-0.2) k/uL Anisocytosis PT (9.0-12.0) sec INR (<1.2) APTT (22.0-30.0) sec D-Dimer (<0.60) mg/L FEU Sodium (137-145) mmol/L Potassium (3.5-5.1) mmol/L Chloride (98-107) mmol/L Carbon Dioxide (22-30) mmol/L Anion Gap mmol/L BUN (7-17) mg/dL Creatinine (0.52-1.04) mg/dL Est GFR (CKD-EPI)AfAm (>60 ml/min/1.73 sqM) Est GFR (CKD-EPI)NonAf (>60 ml/min/1.73 sqM) Glucose (74-99) mg/dL Plasma Lactic Acid Tres 0.9 (0.7-2.0) mmol/L Calcium (8.4-10.2) mg/dL Magnesium (1.6-2.3) mg/dL Total Bilirubin (0.2-1.3) mg/dL AST (14-36) U/L ALT (9-52) U/L Alkaline Phosphatase (38-126) U/L Troponin I <0.012 (0.000-0.034) ng/mL NT-Pro-B Natriuret Pep pg/mL Total Protein (6.3-8.2) g/dL Albumin (3.5-5.0) g/dL Urine Color Urine Appearance (Clear) Urine pH (5.0-8.0) Ur Specific [place] (1.001-1.035) Urine Protein (Negative) Urine Glucose (UA) (Negative) Urine Ketones (Negative) Urine Blood (Negative) Urine Nitrite (Negative) Urine Bilirubin (Negative) Urine Urobilinogen (<2.0) mg/dL Ur Leukocyte Esterase (Negative) Urine RBC (0-5) /hpf Urine WBC (0-5) /hpf Ur Squamous Epith Cells (0-4) /hpf Hyaline Casts (0-2) /lpf Urine Mucus (None) /hpf Urine HCG, Qual (Not Detectd) - EKG Data -: EKG Interpreted by Me (and Dr. Longo) EKG Comments: Ventricular rate 72, painful 178, curious 88, QT/QTc 444/46. Normal sinus rhythm, possible left atrial enlargement, low-voltage QRS, septal infarct, age a=undetermined. No significant change from prior EKG, no concern for acute ischemia. Disposition Clinical Impression: Pneumonia, COPD exacerbation, CHF (congestive heart failure) Disposition: ADMITTED IP TO THIS HOSP Condition: Serious Is patient prescribed a controlled substance at d/c from ED?: No
[2018-10-09] MEDS ORDERED: FUROSEMIDE 10 MG/ML 4 ML VIAL IV SCH ×2 (00:15→09:00)
[2018-10-09] MEDS: methylPREDNISolone SOD SUCCI 125 MG/2 ML VIAL IV SCH ×2 (00:34→06:59)
[2018-10-09 06:34] LABS: Glucose,Whole Blood 440 mg/dL (75-99)
[2018-10-09] MEDS ORDERED: INSULIN ASPART (NovoLOG) 100 UNIT/ML VIAL SQ ONE ×3 (06:54→17:45)
[2018-10-09] MEDS: INSULIN ASPART (NovoLOG) 100 UNIT/ML VIAL SQ SCH ×6 (06:59→21:49)
--- NOTE | 2018-10-09 07:06 | P.HPIM ---
History of Present Illness H&P Date: 10/09/18 Chief Complaint: exertional dyspnea 48-year-old female with history of systolic CHF with left ventricular ejection fraction 4550 percent, CK D3, chronic anemia, diabetes mellitus, COPD Patient presented the hospital with 3 day history of exertional dyspnea, and shortness of breath at rest at times. Associated with positive orthopnea and paroxysmal maternal dyspnea. She also reports no productive coughing chills but no fever. She reports that she is compliant with her medications she takes 120 mg of Lasix every day. However she admits of continuing to smoke despite recommendations to quit smoking she continues to take Chantix, she also admits that every time she smokes pot this happens and she has just recently smoked some marijuana. Otherwise she denies any hemoptysis denies any fever denies any abdominal pain denies any nausea vomiting denies any chest pain denies any leg swelling denies any calf tenderness, denies any changes in her urinary or bowel habits. Patient reports that she is independent at home ambulates without using any assistive devices she had times even drives. She denies any recent history of falls. Patient reports that her dyspnea was getting worse despite using her inhalers and to the point she started having shortness of breath at rest for she decided come to the hospital for further evaluation. In the ED chest x-ray showed vascular congestion with possible right lower lobe pneumonia and right pleural effusion mild. Elevated proBNP. Review of Systems Pertinent positives as noted in HPI. All other systems were reviewed and are negative Past Medical History Past Medical History: Cancer, Heart Failure, COPD, CVA/TIA, Diabetes Mellitus, Hyperlipidemia, Hypertension, Renal Disease, Vascular Disorder Additional Past Medical History / Comment(s): CHF, valvular heart disease with MR, peripheral vascular disease, hypertension, hyperlipidemia, COPD, diabetes mellitusII. CML cancer. 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 History of Any Multi-Drug Resistant Organisms: None Reported Past Surgical History: Appendectomy, Bowel Resection, Orthopedic Surgery, Tubal Ligation Additional Past Surgical History / Comment(s): Hx of colostomy and reversal,rotator cuff repair on Left,hx of bifem bypass. Colonoscopy 2012 Past Anesthesia/Blood Transfusion Reactions: No Reported Reaction Past Psychological History: Anxiety, Depression Smoking Status: Current every day smoker Past Alcohol Use History: None Reported Additional Past Alcohol Use History / Comment(s): 2-3 cigarettes per day Past Drug Use History: Marijuana - Past Family History Mother Family Medical History: Congestive Heart Failure (CHF), Diabetes Mellitus Brother(s) Additional Family Medical History / Comment(s): CABG Sister(s) Family Medical History: CVA/TIA Additional Family Medical History / Comment(s): Maternal aunt had breast cancer. Medications and Allergies Home Medications Medication Instructions Recorded Confirmed Type Clopidogrel Bisulfate [Plavix] 75 mg PO DAILY 01/21/15 10/08/18 History Ergocalciferol (Vitamin D2) 50,000 unit PO Q14D 01/21/15 10/08/18 History [Drisdol] Ferrous Sulfate [Iron (65 MG 325 mg PO DAILY 01/21/15 10/08/18 History Elemental)] Loratadine [Claritin] 10 mg PO DAILY 01/21/15 10/08/18 History lamoTRIgine [LaMICtal] 25 mg PO BID 01/21/15 10/08/18 History Albuterol Inhaler [Ventolin Hfa 1 - 2 puff INHALATION RT-Q6H PRN 06/30/17 10/08/18 History Inhaler] Atorvastatin [Lipitor] 80 mg PO HS 06/30/17 10/08/18 History Citalopram Hydrobromide [CeleXA] 20 mg PO DAILY 06/30/17 10/08/18 History Famotidine [Pepcid] 40 mg PO DAILY 06/18/18 10/08/18 History amLODIPine [Norvasc] 10 mg PO DAILY 06/18/18 10/08/18 History Isosorbide Mononitrate ER [Imdur] 60 mg PO DAILY #30 tab.er.24h 06/22/18 10/08/18 Rx Albuterol Nebulized [Ventolin 2.5 mg INHALATION RT-Q6H PRN 07/02/18 10/08/18 History Nebulized] Varenicline Tartrate [Chantix 0.5 mg PO BID 07/02/18 10/08/18 History Starter Pack] hydrALAZINE HCL 25 mg PO BID 07/02/18 10/08/18 History Insulin Glargine,Hum.rec.anlog 22 units SQ DAILY@1400 07/03/18 10/08/18 History [Basaglar Kwikpen U-100] Furosemide [Lasix] 20 mg PO BID #60 tab 07/05/18 10/08/18 Rx Furosemide [Lasix] 40 mg PO BID #60 tablet 07/05/18 10/08/18 Rx Allopurinol [Zyloprim] 100 mg PO DAILY 08/30/18 10/08/18 History Metoprolol Succinate [Toprol XL] 100 mg PO HS 10/08/18 10/08/18 History Umeclidinium [place] [Incruse 62.5 mcg INHALATION RT-HS 10/08/18 10/08/18 History Ellipta] glipiZIDE [Glucotrol] 10 mg PO AC-BID 10/08/18 10/08/18 History Allergies Allergy/AdvReac Type Severity Reaction Status Date / Time bee venom protein (honey bee) Allergy Rash/Hives Verified 10/08/18 22:56 Penicillins Allergy Rash/Hives Verified 10/08/18 22:56 Physical Exam Vitals: Vital Signs Temp Pulse Pulse Resp BP BP Pulse Ox 10/09/18 04:20 98.3 F 85 18 95/52 91 L 10/09/18 01:10 97.7 F 60 18 105/52 95 10/09/18 00:40 112/74 95 10/09/18 00:10 71 15 108/69 96 10/08/18 23:40 69 17 106/69 97 10/08/18 23:30 68 18 98/64 97 10/08/18 23:10 67 18 83/60 95 10/08/18 22:50 74 18 73/58 10/08/18 22:20 70 20 121/77 94 L 10/08/18 22:00 69 18 110/68 95 10/08/18 21:10 77 16 10/08/18 21:02 70 16 10/08/18 20:54 70 109/68 95 10/08/18 20:50 71 18 100/70 98 10/08/18 19:51 98.3 F 69 18 99/58 97 Intake and Output 10/08/18 10/08/18 10/09/18 14:59 22:59 06:59 Other: Weight 69.853 kg Constitutional: No acute distress, conversant, pleasant Eyes: Anicteric sclerae, moist conjunctiva, no lid-lag Pupils equal round reactive to light ENMT: NC/AT Oropharynx clear, no erythema, exudates Neck: Supple, FROM, no masses, positive mild JVD No carotid bruits No thyromegaly Lungs: Prolonged expiratory phase with end expiratory wheezes, decreased breath sounds at lung bases bilaterally with fine inspiratory rales at right lung base Clear to percussion Normal respiratory effort, no accessory muscle use , on oxygen by nasal cannula Cardiovascular: Heart regular in rate and rhythm, No murmurs, gallops, or rubs No peripheral edema Abdominal: Soft Nontender, no guarding, rebound or rigidity Abdomen moving with respiration Normoactive bowel sounds No hepatomegaly, No splenomegaly No palpable mass No abdominal wall hernia noted Skin: Normal temperature, tone, texture, turgor No induration No subcutaneous nodules No rash, lesions No ulcers Extremities: No digital cyanosis No clubbing Pedal pulses intact and symmetrical Radial pulses intact and symmetrical No calf tenderness Psychiatric: Alert and oriented to person, place and time Appropriate affect fair judgment Neuro Muscles Strength 4/5 in all 4 extremities Sensation to light touch grossly present throughout Cranial nerves II-XII grossly intact No focal sensory deficits Lymphatics: no palpable cervical or supraclavicular , or inguinal lymph nodes Results CBC & Chem 7: 10/08/18 20:43 10/08/18 20:43 Labs: Abnormal Lab Results - Last 24 Hours (Table) 10/08/18 10/08/18 10/08/18 Range/Units 20:37 20:43 20:43 RBC 2.71 L (3.80-5.40) m/uL Hgb 8.5 L (11.4-16.0) gm/dL Hct 25.6 L (34.0-46.0) % RDW 16.7 H (11.5-15.5) % Lymphocytes # 0.8 L (1.0-4.8) k/uL D-Dimer (<0.60) mg/L FEU Chloride 110 H (98-107) mmol/L Carbon Dioxide 20 L (22-30) mmol/L BUN 47 H (7-17) mg/dL Creatinine 2.19 H (0.52-1.04) mg/dL Glucose 202 H (74-99) mg/dL AST 40 H (14-36) U/L Alkaline Phosphatase 132 H (38-126) U/L Urine Appearance Cloudy H (Clear) Urine Protein 2+ H (Negative) Ur Leukocyte Esterase Large H (Negative) Urine RBC 13 H (0-5) /hpf Urine WBC 19 H (0-5) /hpf Ur Squamous Epith Cells 19 H (0-4) /hpf Hyaline Casts 6 H (0-2) /lpf Urine Mucus Rare H (None) /hpf 10/08/18 Range/Units 20:43 RBC (3.80-5.40) m/uL Hgb (11.4-16.0) gm/dL Hct (34.0-46.0) % RDW (11.5-15.5) % Lymphocytes # (1.0-4.8) k/uL D-Dimer 1.02 H (<0.60) mg/L FEU Chloride (98-107) mmol/L Carbon Dioxide (22-30) mmol/L BUN (7-17) mg/dL Creatinine (0.52-1.04) mg/dL Glucose (74-99) mg/dL AST (14-36) U/L Alkaline Phosphatase (38-126) U/L Urine Appearance (Clear) Urine Protein (Negative) Ur Leukocyte Esterase (Negative) Urine RBC (0-5) /hpf Urine WBC (0-5) /hpf Ur Squamous Epith Cells (0-4) /hpf Hyaline Casts (0-2) /lpf Urine Mucus (None) /hpf Thrombosis Risk Factor Assmnt - Choose All That Apply Each Factor Represents 1 point: Age 41-60 years, Heart failure (<1month), Obesity (BMI >25) Thrombosis Risk Factor Assessment Total Risk Factor Score: 3 Thrombosis Risk Factor Assessment Level: Moderate Risk Assessment and Plan Assessment: 48-year-old female with history of systolic CHF, diabetes mellitus, hypertension, COPD, CKD3 Admit physical inpatient with anticipated length of stay more than 48 hours due to difficulty in breathing multifactorial secondary toacute COPD exacerbationand mild acute CHF exacerbation. Patient was started on IV diuresis and COPD pathway Plan: Exertional dyspnea with difficulty in breathing multifactorial secondary to acute COPD exacerbation and mild acute CHF exacerbation Community-acquired pneumonia Patient started on COPD pathway with systemic IV steroids, DuoNeb's, levofl oxacin Patient counseled again to quit smoking IV diuresis Assess home oxygen requirement prior to discharge Diabetes mellitus with hyperglycemia Insulin sliding scale Resume her Levemir Chronic conditions Chronic anemia, baseline CK D3 at baseline History of CVA Hypertension Peripheral vascular disease Resume home medications, hold parameters on blood pressure medications to avoid hypotension DVT prophylaxis heparin subcu 3 times a day Preformed a thorough record review from recent hospitalization frequent hospitalization last discharge was in July 2018, due to COPD, pneumonia and CHF exacerbations Surrogate decision-maker: Patient's son CODE STATUS: No code Discussed with: Patient, ER, RN Anticipated discharge: 48-[address]: Home A total of 60 minutes was spent on the care of this complex patient more than 50 % of the time was spent in counseling and care coordination.
[2018-10-09] MEDS: IPRATROPIUM-ALBUTEROL 3 ML NEB INHALATION SCH ×4 (07:15→19:56)
[2018-10-09] MEDS ORDERED: IPRATROPIUM 0.5 MG/2.5 ML NEBU INHALATION SCH (08:00)
[2018-10-09 08:32] LABS: Anisocytosis Slight; Basophils % (A) 1 %; Eosinophils % (A) 0 %; HCT 27.1 % (34.0-46.0); HGB 8.8 gm/dL (11.4-16.0); Lymphocytes # (A) 0.4 k/uL (1.0-4.8); Lymphocytes % (A) 4 %; MCH 31.9 pg (25.0-35.0); MCHC 32.5 g/dL (31.0-37.0); MCV 98.2 fL (80.0-100.0); Macrocytosis Slight; Mean Platelet Volume 8.8; Monocytes # (A) 0.1 k/uL (0-1.0); Monocytes % (A) 1 %; Neutrophils # (A) 8.3 k/uL (1.3-7.7); Neutrophils % (A) 94 %; Platelet Count 221 k/uL (150-450); RBC 2.76 m/uL (3.80-5.40); RDW 17.9 % (11.5-15.5); WBC 8.9 k/uL (3.8-10.6)
[2018-10-09 08:33] LABS: Albumin 3.7 g/dL (3.5-5.0); Calcium 8.9 mg/dL (8.4-10.2); Potassium 4.2 mmol/L (3.5-5.1); Total Bilirubin 0.6 mg/dL (0.2-1.3); Total Protein 6.2 g/dL (6.3-8.2)
[2018-10-09] MEDS: amLODIPine 10 MG TAB PO SCH (09:43)
[2018-10-09] MEDS: FERROUS SULFATE 325 MG TAB PO SCH (09:43)
[2018-10-09] MEDS: hydrALAZINE HCL 25 MG TAB PO SCH ×2 (09:43→21:48)
[2018-10-09] MEDS: ISOSORBIDE MONONITRATE ER 60 MG TAB.ER.24H PO SCH (09:43)
[2018-10-09] MEDS: HEPARIN SODIUM,PORCINE 5,000 UNIT/ML 1 ML VIAL SQ SCH ×3 (09:43→23:54)
[2018-10-09] MEDS: FAMOTIDINE 20 MG TAB PO SCH (09:44)
[2018-10-09] MEDS: lamoTRIgine 25 MG TAB PO SCH ×2 (09:44→23:15)
[2018-10-09] MEDS: CLOPIDOGREL 75 MG TAB PO SCH (09:44)
[2018-10-09] MEDS: VARENICLINE 0.5 MG TAB PO SCH ×2 (09:44→21:48)
[2018-10-09] MEDS: CITALOPRAM HYDROBROMIDE 20 MG TAB PO SCH (09:44)
--- NOTE | 2018-10-09 09:50 | P.CRDCN ---
History of Present Illness Consult date: 10/09/18 History of present illness: This is a 48-year-old female with history of COPD, severe peripheral vascular disease status post femoral pop bypass surgery done in 2013, bilateral carotid stenosis, hypertension, diabetes and dyslipidemia who comes here for evaluation of symptoms of increasing shortness of breath. Patient is a chronic smoker and continues to smoke. 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 She was taking Lasix 120 mg daily in the morning along with hydralazine, Toprol-XL, atorvastatin and aspirin and also amlodipine. Previous echocardiogram showed an ejection fraction about 45%. Her proBNP in the past has been up to 10,000. This time. Also the proBNP was 10,000. She claims that she initially started with cold and then had mild cough followed by shortness of breath. She did have some orthopnea. She has been treated with IV Lasix since admission and seemed to be diuresing fairly well. Her creatinine has gone up to 2.27. Her lungs appeared to be clear. I'm going to discontinue IV Lasix out of the current dose and then switch to by mouth Lasix 80 mg by mouth twice a day. She is also getting steroids. Further recommendations depend upon the clinical course. Patient also had a VQ scan and the results are pending at this time Review of Systems As per HPI Past Medical History Past Medical History: Cancer, Heart Failure, COPD, CVA/TIA, Diabetes Mellitus, Hyperlipidemia, Hypertension, Renal Disease, Vascular Disorder Additional Past Medical History / Comment(s): CHF, valvular heart disease with MR, peripheral vascular disease, hypertension, hyperlipidemia, COPD, diabetes mellitusII. CML cancer. 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 History of Any Multi-Drug Resistant Organisms: None Reported Past Surgical History: Appendectomy, Bowel Resection, Orthopedic Surgery, Tubal Ligation Additional Past Surgical History / Comment(s): Hx of colostomy and reversal,rotator cuff repair on Left,hx of bifem bypass. Colonoscopy 2012 Past Anesthesia/Blood Transfusion Reactions: No Reported Reaction Past Psychological History: Anxiety, Depression Smoking Status: Current every day smoker Past Alcohol Use History: None Reported Additional Past Alcohol Use History / Comment(s): 2-3 cigarettes per day Past Drug Use History: Marijuana - Past Family History Mother Family Medical History: Congestive Heart Failure (CHF), Diabetes Mellitus Brother(s) Additional Family Medical History / Comment(s): CABG Sister(s) Family Medical History: CVA/TIA Additional Family Medical History / Comment(s): Maternal aunt had breast cancer. Medications and Allergies Home Medications Medication Instructions Recorded Confirmed Type Clopidogrel Bisulfate [Plavix] 75 mg PO DAILY 01/21/15 10/08/18 History Ergocalciferol (Vitamin D2) 50,000 unit PO Q14D 01/21/15 10/08/18 History [Drisdol] Ferrous Sulfate [Iron (65 MG 325 mg PO DAILY 01/21/15 10/08/18 History Elemental)] Loratadine [Claritin] 10 mg PO DAILY 01/21/15 10/08/18 History lamoTRIgine [LaMICtal] 25 mg PO BID 01/21/15 10/08/18 History Albuterol Inhaler [Ventolin Hfa 1 - 2 puff INHALATION RT-Q6H PRN 06/30/17 10/08/18 History Inhaler] Atorvastatin [Lipitor] 80 mg PO HS 06/30/17 10/08/18 History Citalopram Hydrobromide [CeleXA] 20 mg PO DAILY 06/30/17 10/08/18 History Famotidine [Pepcid] 40 mg PO DAILY 06/18/18 10/08/18 History amLODIPine [Norvasc] 10 mg PO DAILY 06/18/18 10/08/18 History Isosorbide Mononitrate ER [Imdur] 60 mg PO DAILY #30 tab.er.24h 06/22/18 10/08/18 Rx Albuterol Nebulized [Ventolin 2.5 mg INHALATION RT-Q6H PRN 07/02/18 10/08/18 History Nebulized] Varenicline Tartrate [Chantix 0.5 mg PO BID 07/02/18 10/08/18 History Starter Pack] hydrALAZINE HCL 25 mg PO BID 07/02/18 10/08/18 History Insulin Glargine,Hum.rec.anlog 22 units SQ DAILY@1400 07/03/18 10/08/18 History [Basaglar Kwikpen U-100] Furosemide [Lasix] 20 mg PO BID #60 tab 07/05/18 10/08/18 Rx Furosemide [Lasix] 40 mg PO BID #60 tablet 07/05/18 10/08/18 Rx Allopurinol [Zyloprim] 100 mg PO DAILY 08/30/18 10/08/18 History Metoprolol Succinate [Toprol XL] 100 mg PO HS 10/08/18 10/08/18 History Umeclidinium [place] [Incruse 62.5 mcg INHALATION RT-HS 10/08/18 10/08/18 History Ellipta] glipiZIDE [Glucotrol] 10 mg PO AC-BID 10/08/18 10/08/18 History Allergies Allergy/AdvReac Type Severity Reaction Status Date / Time bee venom protein (honey bee) Allergy Rash/Hives Verified 10/08/18 22:56 Penicillins Allergy Rash/Hives Verified 10/08/18 22:56 Physical Exam Vitals: Vital Signs Temp Pulse Pulse Resp BP BP Pulse Ox 10/09/18 07:26 80 10/09/18 07:19 76 10/09/18 04:20 98.3 F 85 18 95/52 91 L 10/09/18 01:10 97.7 F 60 18 105/52 95 10/09/18 00:40 112/74 95 10/09/18 00:10 71 15 108/69 96 10/08/18 23:40 69 17 106/69 97 10/08/18 23:30 68 18 98/64 97 10/08/18 23:10 67 18 83/60 95 10/08/18 22:50 74 18 73/58 10/08/18 22:20 70 20 121/77 94 L 10/08/18 22:00 69 18 110/68 95 10/08/18 21:10 77 16 10/08/18 21:02 70 16 10/08/18 20:54 70 109/68 95 10/08/18 20:50 71 18 100/70 98 10/08/18 19:51 98.3 F 69 18 99/58 97 Intake and Output 10/08/18 10/09/18 10/09/18 22:59 06:59 14:59 Intake Total 120 Balance 120 Intake: Oral 120 Other: Weight 69.853 kg 68.8 kg GENERAL EXAM: Patient is alert and oriented and doesn't appear to be in any acute distress HEENT: Normocephalic. Normal reaction of pupils, equal size, normal range of extraocular motion. No erythema or exudates in the throat. NECK: No masses, no nuchal rigidity. CHEST: No chest wall deformity. LUNGS: Equal air entry with no crackles or wheeze. HEART: S1 and S2 normal with no audible mumurs or gallops. Regular rhythm, femorals equal on both sides.. ABDOMEN: No hepatosplenomegaly, normal bowel sounds, no guarding or rigidity. SKIN: No rashes CENTRAL NERVOUS SYSTEM: No focal deficits. EXTREMITIES: No cyanosis, clubbing or edema. Results 10/09/18 07:53 10/09/18 07:53 Cardiac Enzymes 10/08/18 10/08/18 10/09/18 Range/Units 20:43 20:43 03:41 AST 40 H (14-36) U/L Troponin I <0.012 <0.012 (0.000-0.034) ng/mL 10/09/18 10/09/18 Range/Units 07:53 07:53 AST 30 (14-36) U/L Troponin I <0.012 (0.000-0.034) ng/mL Coagulation 10/08/18 Range/Units 20:43 PT 10.4 (9.0-12.0) sec APTT 23.9 (22.0-30.0) sec CBC 10/08/18 10/09/18 Range/Units 20:43 07:53 WBC 9.6 8.9 (3.8-10.6) k/uL RBC 2.71 L 2.76 L (3.80-5.40) m/uL Hgb 8.5 L 8.8 L (11.4-16.0) gm/dL Hct 25.6 L 27.1 L (34.0-46.0) % Plt Count 232 221 (150-450) k/uL Comprehensive Metabolic Panel 10/08/18 10/09/18 Range/Units 20:43 07:53 Sodium 138 139 (137-145) mmol/L Potassium 3.9 4.2 (3.5-5.1) mmol/L Chloride 110 H 109 H (98-107) mmol/L Carbon Dioxide 20 L 19 L (22-30) mmol/L BUN 47 H 47 H (7-17) mg/dL Creatinine 2.19 H 2.29 H (0.52-1.04) mg/dL Glucose 202 H 398 H (74-99) mg/dL Calcium 9.2 8.9 (8.4-10.2) mg/dL AST 40 H 30 (14-36) U/L ALT 52 47 (9-52) U/L Alkaline Phosphatase 132 H 125 (38-126) U/L Total Protein 6.3 6.2 L (6.3-8.2) g/dL Albumin 3.7 3.7 (3.5-5.0) g/dL Current Medications Generic Name Dose Route Start Last Admin Trade Name Freq PRN Reason Stop Dose Admin Albuterol/Ipratropium 3 ml 10/09/18 08:00 10/09/18 07:15 Duoneb 0.5 Mg-3 Mg/3 Ml Soln INHALATION 3 ml RT-QID KESHAWN Administration Amlodipine Besylate 10 mg 10/09/18 09:00 10/09/18 09:43 Norvasc PO 10 mg DAILY KESHAWN Administration Atorvastatin Calcium 80 mg 10/09/18 21:00 Lipitor PO HS [facility] Citalopram Hydrobromide 20 mg 10/09/18 09:00 10/09/18 09:44 Celexa PO 20 mg DAILY [facility] Administration Clopidogrel Bisulfate 75 mg 10/09/18 09:00 10/09/18 09:44 Plavix PO 75 mg DAILY [facility] Administration Famotidine 40 mg 10/09/18 09:00 10/09/18 09:44 Pepcid PO 40 mg DAILY [facility] Administration Ferrous Sulfate 325 mg 10/09/18 09:00 10/09/18 09:43 Feosol PO 325 mg DAILY [facility] Administration Furosemide 40 mg 10/09/18 09:00 10/09/18 09:43 Lasix IV 40 mg Q12HR [facility] Administration Heparin Sodium (Porcine) 5,000 unit 10/09/18 08:00 10/09/18 09:43 Heparin SQ 5,000 unit Q8HR [facility] Administration Hydralazine HCl 25 mg 10/09/18 09:00 10/09/18 09:43 Apresoline PO 25 mg BID [facility] Administration Levofloxacin 500 mg/ IV 100 mls @ 100 mls/hr 10/10/18 21:45 Solution IVPB Q48H [facility] Insulin Aspart 0 unit 10/09/18 07:30 10/09/18 06:59 Novolog SQ 8 unit ACHS KESHAWN Administration Protocol Insulin Detemir 22 unit 10/09/18 14:00 Levemir SQ DAILY@1400 KESHAWN Ipratropium [place] 0.5 mg 10/09/18 08:00 10/09/18 07:19 Atrovent Nebulized INHALATION Not Given RT-QID KESHAWN Isosorbide Mononitrate 60 mg 10/09/18 09:00 10/09/18 09:43 Imdur PO 60 mg DAILY KESHAWN Administration Lamotrigine 25 mg 10/09/18 09:00 10/09/18 09:44 Lamictal PO 25 mg BID KESHAWN Administration Methylprednisolone Sodium Succinate 60 mg 10/09/18 00:15 10/09/18 06:59 Solu-Medrol IV 60 mg Q6HR KESHAWN Administration Metoprolol Succinate 100 mg 10/09/18 21:00 Toprol Xl PO HS KESHAWN Varenicline 0.5 mg 10/09/18 09:00 10/09/18 09:44 Chantix PO 0.5 mg BID KESHAWN Administration Intake and Output 10/08/18 10/09/18 10/09/18 22:59 06:59 14:59 Intake Total 120 Balance 120 Intake: Oral 120 Other: Weight 69.853 kg 68.8 kg 10/09/18 07:53 10/09/18 07:53 EKG Interpretations (text) Sinus rhythm with poor R-wave progression in anterior leads. Assessment and Plan (1) Chronic renal failure Current Visit: Yes Status: Acute Code(s): N18.9 - CHRONIC KIDNEY DISEASE, UNSPECIFIED SNOMED Code(s): 44490882 (2) COPD exacerbation Current Visit: Yes Status: Acute Code(s): J44.1 - CHRONIC OBSTRUCTIVE PULMONARY DISEASE W (ACUTE) EXACERBATION SNOMED Code(s): 876409103 (3) Pneumonia Current Visit: Yes Status: Acute Code(s): J18.9 - PNEUMONIA, UNSPECIFIED ORGANISM SNOMED Code(s): 794175086 (4) Peripheral vascular disease Current Visit: Yes Status: Acute Code(s): I73.9 - PERIPHERAL VASCULAR D ISEASE, UNSPECIFIED SNOMED Code(s): 178127493 (5) Acute on chronic combined systolic (congestive) and diastolic (congestive) heart failure Current Visit: Yes Status: Acute Code(s): I50.43 - ACUTE ON CHRONIC COMBINED SYSTOLIC AND DIASTOLIC HRT FAIL SNOMED Code(s): 882863695581093 (6) Peripheral vascular disease Current Visit: Yes Status: Acute Code(s): I73.9 - PERIPHERAL VASCULAR DISEASE, UNSPECIFIED SNOMED Code(s): 307875555 Plan: This patient is admitted with increasing shortness of breath which could be multifactorial. Patient seemed to be responding to IV Lasix. However her creatinine is going up. I will discontinue IV Lasix and start her on by mouth Lasix. Patient is also not on steroids. She had a VQ scan the results are pending. Further recommendations depend upon the clinical course.
--- NOTE | 2018-10-09 10:02 | NM ---
EXAMINATION TYPE: NM pul vent and perfuse DATE OF EXAM: 10/09/2018 COMPARISON: NONE HISTORY: Chest pain and shortness of breath TECHNIQUE: Utilizing inhalation of 41.2 mCi Tc 99m DTPA aerosol and intravenous injection of 4.9 mCi of Tc 99m MAA, ventilation and perfusion images are acquired post injection in multiple projections. FINDINGS: Normal radiotracer distribution is noted in the lungs. There is no evidence of mismatched defects. IMPRESSION: Normal ventilation/perfusion lung scan.
[2018-10-09] MEDS ORDERED: ALBUTEROL NEBULIZED 2.5 MG/3 ML INHALATION PRN (10:44)
[2018-10-09 10:51] LABS: Glucose,Whole Blood 365 mg/dL (75-99)
--- NOTE | 2018-10-09 10:56 | P.PN ---
Subjective Progress Note Date: 10/09/18 Principal diagnosis: shortness of breath Patient will 48-year-old female with a history of systolic congestive heart failure with last known ejection fraction 45-50%, chronic kidney disease stage III, chronic anemia, diabetes mellitus type 2 insulin requiring, and COPD who presented to the hospital with a 3 day history of exertional dyspnea and shortness of breath. In the ER she underwent an extensive evaluation. Her vital signs were within normal limits. Laboratory analysis was consistent with her known anemia and hemoglobin of 8.5, creatinine was 2.19 near her baseline, glucose was elevated at 202, and BNP significantly elevated at 10,200. Chest x- ray showed possible bilateral infiltrates. She was started on Zithromax, Rocephin, IV steroids for possible COPD exacerbation, and IV Lasix for CHF exacerbation. Arrangements are made for admission. By the morning after admission she felt significantly improved. Patient seen and examined at bedside. She states that her breathing is much better, still having slight swelling in her left leg, no nausea, no vomiting, no wheezing. Objective - Vital Signs Vital signs: Vital Signs Temp 98.3 F 10/09/18 04:20 Pulse 80 10/09/18 07:26 Resp 18 10/09/18 04:20 BP 95/52 10/09/18 04:20 Pulse Ox 91 L 10/09/18 04:20 Intake & Output 10/08/18 10/09/18 10/09/18 18:59 06:59 18:59 Intake Total 120 Balance 120 Weight 68.8 kg Intake: Oral 120 - Exam General: non toxic, no distress, appears older than stated age Derm: warm, dry Head: atraumatic, normocephalic, symmetric Eyes: EOMI, no lid lag, anicteric sclera Mouth: no lip lesion, mucus membranes moist Cardiovascular: S1S2 reg, no murmur, positive posterior tibial pulse bilateral, Lungs: Decreased Breath sounds bilateral basesgs: CTA bilateral, no rhonchi, no rales , no accessory muscle use Abdominal: soft, nontender to palpation, no guarding, no appreciable organomegaly Ext: no gross muscle atrophy, no edema, no contractures Neuro: CN II-XI grossly intact, no focal neuro deficits Psych: Alert, oriented, appropriate affect - Labs CBC & Chem 7: 10/09/18 07:53 10/09/18 07:53 Labs: Abnormal Lab Results - Last 24 Hours (Table) 10/08/18 10/08/18 10/08/18 Range/Units 20:37 20:43 20:43 RBC 2.71 L (3.80-5.40) m/uL Hgb 8.5 L (11.4-16.0) gm/dL Hct 25.6 L (34.0-46.0) % RDW 16.7 H (11.5-15.5) % Neutrophils # (1.3-7.7) k/uL Lymphocytes # 0.8 L (1.0-4.8) k/uL D-Dimer (<0.60) mg/L FEU Chloride 110 H (98-107) mmol/L Carbon Dioxide 20 L (22-30) mmol/L BUN 47 H (7-17) mg/dL Creatinine 2.19 H (0.52-1.04) mg/dL Glucose 202 H (74-99) mg/dL POC Glucose (mg/dL) (75-99) mg/dL AST 40 H (14-36) U/L Alkaline Phosphatase 132 H (38-126) U/L Total Protein (6.3-8.2) g/dL Urine Appearance Cloudy H (Clear) Urine Protein 2+ H (Negative) Ur Leukocyte Esterase Large H (Negative) Urine RBC 13 H (0-5) /hpf Urine WBC 19 H (0-5) /hpf Ur Squamous Epith Cells 19 H (0-4) /hpf Hyaline Casts 6 H (0-2) /lpf Urine Mucus Rare H (None) /hpf 10/08/18 10/09/18 10/09/18 Range/Units 20:43 06:30 07:53 RBC 2.76 L (3.80-5.40) m/uL Hgb 8.8 L (11.4-16.0) gm/dL Hct 27.1 L (34.0-46.0) % RDW 17.9 H (11.5-15.5) % Neutrophils # 8.3 H (1.3-7.7) k/uL Lymphocytes # 0.4 L (1.0-4.8) k/uL D-Dimer 1.02 H (<0.60) mg/L FEU Chloride (98-107) mmol/L Carbon Dioxide (22-30) mmol/L BUN (7-17) mg/dL Creatinine (0.52-1.04) mg/dL Glucose (74-99) mg/dL POC Glucose (mg/dL) 440 H (75-99) mg/dL AST (14-36) U/L Alkaline Phosphatase (38-126) U/L Total Protein (6.3-8.2) g/dL Urine Appearance (Clear) Urine Protein (Negative) Ur Leukocyte Esterase (Negative) Urine RBC (0-5) /hpf Urine WBC (0-5) /hpf Ur Squamous Epith Cells (0-4) /hpf Hyaline Casts (0-2) /lpf Urine Mucus (None) /hpf 10/09/18 Range/Units 07:53 RBC (3.80-5.40) m/uL Hgb (11.4-16.0) gm/dL Hct (34.0-46.0) % RDW (11.5-15.5) % Neutrophils # (1.3-7.7) k/uL Lymphocytes # (1.0-4.8) k/uL D-Dimer (<0.60) mg/L FEU Chloride 109 H (98-107) mmol/L Carbon Dioxide 19 L (22-30) mmol/L BUN 47 H (7-17) mg/dL Creatinine 2.29 H (0.52-1.04) mg/dL Glucose 398 H (74-99) mg/dL POC Glucose (mg/dL) (75-99) mg/dL AST (14-36) U/L Alkaline Phosphatase (38-126) U/L Total Protein 6.2 L (6.3-8.2) g/dL Urine Appearance (Clear) Urine Protein (Negative) Ur Leukocyte Esterase (Negative) Urine RBC (0-5) /hpf Urine WBC (0-5) /hpf Ur Squamous Epith Cells (0-4) /hpf Hyaline Casts (0-2) /lpf Urine Mucus (None) /hpf Microbiology - Last 24 Hours (Table) 10/08/18 20:37 Urine Culture - Preliminary Urine,Clean Catch Assessment and Plan Assessment: Acute exacerbation of COPD -Transition from IV to oral steroids -Bronchodilators -Pulmonary hygiene -Tobacco cessation -No clinic signs of pneumonia, will stop antibiotics as cough non productive Acute exacerbation of CHF, EF 45-50%, mild - transition to oral lasix - continue with metoprolol - not on MI due to renal function - strict I and O daily weights - Cardio recs appreciated DM2 with hyperglycemia - 15 units now - increase levemir to 28 units - add fixed dose to sliding scale. - follow BS - check A1C - plan on resuming sulfonaurea on discharge as that is preferred by PCP Tobacco abuse - cessation - nicotine replacement HTN, controlled - controlled - continue current meds - follow BP HLD - statin Chronic Anemia - follow CBC - further outpatient work-up CML - outpatient treatment Pneumonia ruled out Transfer to [facility] DVT prophylaxis: Heparin Discussed with: Patient, nursing Anticipated discharge: in AM Anticipated discharge place: home A total of 35 minutes was spent on the care of this complex patient more than 50% of the time was spent in counseling and care coordination.
[2018-10-09 12:18] LABS: Glucose,Whole Blood 382 mg/dL (75-99)
[2018-10-09] MEDS ORDERED: INSULIN DETEMIR (LEVEMIR) 100 UNIT/ML SYR SQ SCH ×2 (14:00)
[2018-10-09] MEDS: FUROSEMIDE 20 MG TAB PO SCH (15:13)
[2018-10-09 17:07] LABS: Glucose,Whole Blood 403 mg/dL (75-99)
[2018-10-09] MEDS: SYMBICORT 160-4.5 MCG INHALER INHALATION SCH (19:56)
[2018-10-09 20:28] LABS: Glucose,Whole Blood 554 mg/dL (75-99)
[2018-10-09] MEDS ORDERED: INSULN ASP PRT/INSULIN ASPART 100 UNIT/ML 10 ML VIAL SQ ONE (21:15)
--- NOTE | 2018-10-09 21:27 | CONS ---
CONSULTATION PULMONARY/CRITICAL CARE CONSULTATION: DATE OF SERVICE: 10/09/2018 This is a 48-year-old female with a history of CHF, COPD, type 2 diabetes, hypertension, and chronic kidney disease, who presents to the emergency department on October 08 with 3 days of increasing shortness of breath and cough. She also apparently had some substernal chest pain with coughing. The patient states that because things were progressive, she was told to get into the hospital early when she has a problem like this and that is why she came. She denies any fever or chills. There was no nausea, vomiting or diarrhea. There is no GI or complaints. The patient apparently sees my partner, Dr. Gibbons, for her lungs and also wants to see Dr. Gibbons for possible sleep apnea syndrome. Anyway, she was evaluated in the emergency room and admitted with a diagnosis of pneumonia, COPD exacerbation and mild CHF. She is currently doing much better. She is up in the room walking around. She did not have any supplemental oxygen on. She was feeling much better. Her primary complaint today was that of dyspnea on exertion. Again, she denies any chest pain or chest discomfort, cough, wheezing, or phlegm production. HOME MEDICATIONS: Include Plavix, vitamin D2, iron, Claritin, Lamictal, Ventolin HFA inhaler, Lipitor, Celexa, Pepcid, Norvasc, Ventolin updrafts, Chantix, hydralazine, insulin, Zyloprim, metoprolol, Incruse Ellipta, Lasix and Imdur. ALLERGIES: PENICILLIN AND BEE VENOM. PAST MEDICAL HISTORY: Positive for CHF and COPD. She also has a history of a CVA, diabetes, hyperlipidemia, hypertension, chronic kidney disease, and valvular heart disease. In addition, she has a vague history of leukemia. SURGICAL HISTORY: Includes among other things appendectomy, bowel resection, various orthopedic procedures including rotator cuff repair, tubal ligation, colostomy and reversal, bifemoral bypass and colonoscopy. SOCIAL HISTORY: Positive for current everyday tobacco use. She stopped for a period of time, but started up into the time she was admitted. She does use marijuana. She denies any alcohol use. FAMILY HISTORY: Positive for congestive heart failure, diabetes, CABG and CVA. She also has a maternal aunt who had breast cancer. REVIEW OF SYSTEMS: CONSTITUTIONAL: Fatigue. NEUROLOGIC: Negative. HEENT: Negative. CARDIOVASCULAR: Negative. PULMONARY: Shortness of breath. GI: Negative. : Negative. RHEUMATOLOGIC: Negative. IMMUNOLOGIC: Negative. ENDOCRINOLOGIC: Negative. DERMATOLOGIC: Negative. PHYSICAL EXAMINATION: Current vital signs include temperature 96.7, heart rate 72, respiratory rate 16, blood pressure 106/65, mean 78 and room air saturation 95%. As mentioned earlier, she looks extremely comfortable. The only complaint today is shortness of breath on exertion. HEENT examination is grossly unremarkable. NECK: Supple. Full range of motion. No adenopathy or thyromegaly. Neck veins are flat. CARDIOVASCULAR examination reveals a regular rhythm and rate. S1, S2 normal. No S3, S4, or murmur. Heart rate 72. LUNGS: A few scattered rhonchi. No crackles. No wheezes. Breath sounds equal bilaterally. In fact, her lung examination is relatively benign. ABDOMEN: Soft. Bowel sounds are heard. EXTREMITIES: Intact. No cyanosis, clubbing, or edema. SKIN: Without rash. NEUROLOGIC examination is brief but nonfocal. LABS: Reviewed. White count 8.9, hemoglobin 8.8, hematocrit 27.1, platelet count 321,000. PT/INR PTT normal. D-dimer 1.02. Sodium 139, potassium 4.2, chloride 109, CO2 of 19, anion gap is 11. BUN and creatinine were 47 and 2.9. The electrolyte profile is consistent with a non-anion gap metabolic acidosis secondary to chronic renal failure. The rest of the labs look okay. N terminal proBNP was 98494. Urine shows it to be cloudy with 2+ protein. Leukocyte esterase was large positive. There were 13 RBCs, 19 WBCs and some hyaline casts and urine mucus. HUD was negative. Current medications are reviewed. She is currently on albuterol updrafts along with Atrovent, amlodipine, Lipitor, Celexa, Plavix, Pepcid, iron, Lasix, heparin, Apresoline, insulin, Imdur, Lamictal, metoprolol, prednisone, and Chantix. ASSESSMENT: 1. Shortness of breath, likely multifactorial, in part related to underlying chronic obstructive pulmonary exacerbation, possible bronchopneumonia as well as congestive heart failure. 2. No evidence of pulmonary embolism based on a normal ventilation-perfusion lung scan. 3. History of congestive heart failure. 4. History of chronic obstructive pulmonary disease. 5. History of type 2 diabetes mellitus. 6. Benign essential hypertension. 7. Chronic kidney disease. 8. Hyperlipidemia. 9. Valvular heart disease. 10.Chronic kidney disease. PLAN: Please see my orders. The patient's COPD will be my first priority. I believe she has shortness of breath related to both chronic lung disease as well as congestive heart failure. It does not appear that she has an active infection at this time. I likely will give her an oral antibiotic just to be sure. We will make sure we get her on proper breathing medications. Prognosis is guarded. We counseled her about the importance of smoking cessation. MMODL / IJN: [id number] /
[2018-10-09] MEDS: METOPROLOL SUCCINATE (ER) 100 MG TAB.ER.24H PO SCH (21:48)
[2018-10-09] MEDS: ATORVASTATIN 80 MG TAB PO SCH (21:48)
[2018-10-10 00:07] LABS: Glucose,Whole Blood 554 mg/dL (75-99)
[2018-10-10] MEDS ORDERED: Magnesium Replacement Protocol 1 EACH MISC MISCELLANE PRN (00:10)
[2018-10-10] MEDS ORDERED: Potassium Replacement Protocol 1 EACH MISC MISCELLANE PRN (00:10)
[2018-10-10] MEDS ORDERED: INSULIN REGULAR BOLUS (FROM DRIP BAG) IV ONE (00:10)
[2018-10-10] MEDS ORDERED: SODIUM CHLORIDE 0.9% 1,000 ML IV SCH (00:15)
[2018-10-10] MEDS ORDERED: INSULIN REGULAR 100 UNIT in SODIUM CHLORIDE 0.9% 100 ML IV SCH ×2 (00:15→21:45)
[2018-10-10 01:10] LABS: African American GFR (CKD) 25 (>60 ml/min/1.73 sqM); Anion Gap 12 mmol/L; Blood Urea Nitrogen 56 mg/dL (7-17); Carbon Dioxide 19 mmol/L (22-30); Chloride 105 mmol/L (98-107); Glucose 491 mg/dL (74-99); Potassium 4.4 mmol/L (3.5-5.1); Sodium 136 mmol/L (137-145)
[2018-10-10 02:08] LABS: Glucose,Whole Blood 409 mg/dL (75-99)
[2018-10-10 03:18] LABS: Glucose,Whole Blood 252 mg/dL (75-99)
[2018-10-10 03:56] LABS: Anisocytosis Slight; HCT 22.9 % (34.0-46.0); HGB 7.8 gm/dL (11.4-16.0); MCH 32.5 pg (25.0-35.0); MCHC 33.8 g/dL (31.0-37.0); MCV 96.3 fL (80.0-100.0); Macrocytosis Slight; Mean Platelet Volume 8.3; Platelet Count 220 k/uL (150-450); RBC 2.38 m/uL (3.80-5.40); RDW 16.8 % (11.5-15.5); WBC 20.6 k/uL (3.8-10.6)
[2018-10-10 04:15] LABS: Glucose,Whole Blood 159 mg/dL (75-99)
[2018-10-10 04:18] LABS: Calcium 9.1 mg/dL (8.4-10.2); Magnesium 2.1 mg/dL (1.6-2.3); Phosphorus 3.6 mg/dL (2.5-4.5); Potassium 4.3 mmol/L (3.5-5.1)
[2018-10-10 05:14] LABS: Glucose,Whole Blood 74 mg/dL (75-99)
[2018-10-10 05:49] LABS: Glucose,Whole Blood 70 mg/dL (75-99)
[2018-10-10 06:12] LABS: Glucose,Whole Blood 83 mg/dL (75-99)
[2018-10-10 06:39] LABS: Glucose,Whole Blood 97 mg/dL (75-99)
[2018-10-10 07:19] LABS: Glucose,Whole Blood 114 mg/dL (75-99)
[2018-10-10] MEDS: SYMBICORT 160-4.5 MCG INHALER INHALATION SCH ×2 (08:19→20:07)
[2018-10-10] MEDS: IPRATROPIUM-ALBUTEROL 3 ML NEB INHALATION SCH ×4 (08:19→20:07)
[2018-10-10] MEDS ORDERED: predniSONE 20 MG TAB PO SCH (09:00)
[2018-10-10 09:33] LABS: Glucose,Whole Blood 147 mg/dL (75-99)
[2018-10-10 09:44] LABS: Iron Saturation 16.6 (12.00-45.00)
[2018-10-10] MEDS: ISOSORBIDE MONONITRATE ER 60 MG TAB.ER.24H PO SCH (10:53)
[2018-10-10] MEDS: FAMOTIDINE 20 MG TAB PO SCH (10:53)
[2018-10-10] MEDS: FERROUS SULFATE 325 MG TAB PO SCH (10:53)
[2018-10-10] MEDS: CLOPIDOGREL 75 MG TAB PO SCH (10:53)
[2018-10-10] MEDS: HEPARIN SODIUM,PORCINE 5,000 UNIT/ML 1 ML VIAL SQ SCH ×2 (10:54→18:37)
[2018-10-10] MEDS: amLODIPine 10 MG TAB PO SCH (10:54)
[2018-10-10] MEDS: hydrALAZINE HCL 25 MG TAB PO SCH ×2 (10:54→21:37)
[2018-10-10] MEDS: CITALOPRAM HYDROBROMIDE 20 MG TAB PO SCH (10:54)
[2018-10-10] MEDS: AZITHROMYCIN 500 MG TAB PO SCH (10:55)
[2018-10-10] MEDS: lamoTRIgine 25 MG TAB PO SCH ×2 (10:55→22:20)
[2018-10-10] MEDS: VARENICLINE 0.5 MG TAB PO SCH ×2 (10:55→22:20)
[2018-10-10] MEDS: FUROSEMIDE 20 MG TAB PO SCH ×2 (11:03→17:22)
[2018-10-10 12:03] LABS: Glucose,Whole Blood 249 mg/dL (75-99)
[2018-10-10 12:33] LABS: Hemoglobin A1C 7.5 % (4.0-6.0)
[2018-10-10] MEDS: INSULIN ASPART (NovoLOG) 100 UNIT/ML VIAL SQ SCH ×5 (13:24→21:33)
--- NOTE | 2018-10-10 14:22 | P.PN ---
Subjective This is a pleasant 48-year-old female past medical history significant for hypertension, COPD, dyslipidemia, diabetes mellitus and peripheral vascular disease s/p femoral-pop bypass. She follows in With Dr. Becerril. Currently being treated for multifactorial hypoxic respiratory failure. Maintained on Toprol 100 mg daily, Imdur 60 mg daily, hydralazine 25 mg twice a day, lasix PO 60 mg twice a day, Plavix 75 mg daily, atorvastatin 80 mg daily and amlodipine 10 mg daily. Blood pressure 129/61 heart rate 71 afebrile maintaining oxygen saturation on room air. GENERAL: Well-appearing, well-nourished and in no acute distress. NECK: Supple without JVD or thyromegaly. LUNGS: Breath sounds clear to auscultation bilaterally. Respiration equal and unlabored. No wheezes, rales or rhonchi. Diminished bilaterally. HEART: Regular rate and rhythm without murmurs, rubs or gallops. S1 and S2 heard. EXTREMITIES: Normal range of motion, no edema. No clubbing or cyanosis. Peripheral pulses intact. ASSESSMENT Acute on chronic combined systolic and diastolic heart failure Acute exacerbation of chronic COPD Mitral regurgitation Pneumonia Hypertension Diabetes mellitus Dyslipidemia Peripheral vascular disease History of coronary artery disease subtotally occluded OM, mild irregularities in the circumflex and mild irregularities in the nondominant RCA Chronic nicotine dependence PLAN Stable from a cardiac perspective. Smoking cessation recommended. Follow up with Dr. Beecrril upon discharge. Nurse Practitioner note has been reviewed, I agree with a documented findings and plan of care. Patient was seen and examined. Objective - Vital Signs Vital signs: Vital Signs Temp 98.3 F 10/10/18 08:00 Pulse 72 10/10/18 12:03 Resp 12 10/10/18 08:00 BP 129/61 10/10/18 08:00 Pulse Ox 97 10/10/18 11:52 Intake & Output 10/09/18 10/10/18 10/10/18 18:59 06:59 18:59 Intake Total 1360 579.09 Balance 1360 579.09 Intake: Intake, IV Titration 329.09 Amount Insulin Regular 100 unit 29.09 In Sodium Chloride 0.9% 100 ml @ 0.1 UNITS/KG/HR 6.949 mls/hr IV .[id number] [facility] Rx#:[id number] Sodium Chloride 0.9% 1, 300 000 ml @ 120 mls/hr IV . Q8H20M [facility] Rx#:[id number] Oral 1360 250 Other: Voiding Method Toilet # Voids 2 1 - Labs CBC & Chem 7: 10/10/18 03:46 10/10/18 03:46 Labs: Abnormal Lab Results - Last 24 Hours (Table) 10/09/18 10/09/18 10/09/18 Range/Units 07:53 07:53 16:56 WBC (3.8-10.6) k/uL RBC (3.80-5.40) m/uL Hgb (11.4-16.0) gm/dL Hct (34.0-46.0) % RDW (11.5-15.5) % Sodium (137-145) mmol/L Chloride (98-107) mmol/L Carbon Dioxide (22-30) mmol/L BUN (7-17) mg/dL Creatinine (0.52-1.04) mg/dL Glucose (74-99) mg/dL POC Glucose (mg/dL) 403 H (75-99) mg/dL Hemoglobin A1c 7.5 H (4.0-6.0) % Iron 44 L (50-170) ug/dL 10/09/18 10/09/18 10/10/18 Range/Units 20:24 23:53 00:24 WBC (3.8-10.6) k/uL RBC (3.80-5.40) m/uL Hgb (11.4-16.0) gm/dL Hct (34.0-46.0) % RDW (11.5-15.5) % Sodium 136 L (137-145) mmol/L Chloride (98-107) mmol/L Carbon Dioxide 19 L (22-30) mmol/L BUN 56 H (7-17) mg/dL Creatinine 2.51 H (0.52-1.04) mg/dL Glucose 491 H (74-99) mg/dL POC Glucose (mg/dL) 554 H 554 H (75-99) mg/dL Hemoglobin A1c (4.0-6.0) % Iron (50-170) ug/dL 10/10/18 10/10/18 10/10/18 Range/Units 01:56 03:06 03:46 WBC 20.6 H (3.8-10.6) k/uL RBC 2.38 L (3.80-5.40) m/uL Hgb 7.8 L (11.4-16.0) gm/dL Hct 22.9 L (34.0-46.0) % RDW 16.8 H (11.5-15.5) % Sodium (137-145) mmol/L Chloride (98-107) mmol/L Carbon Dioxide (22-30) mmol/L BUN (7-17) mg/dL Creatinine (0.52-1.04) mg/dL Glucose (74-99) mg/dL POC Glucose (mg/dL) 409 H 252 H (75-99) mg/dL Hemoglobin A1c (4.0-6.0) % Iron (50-170) ug/dL 10/10/18 10/10/18 10/10/18 Range/Units 03:46 04:03 05:02 WBC (3.8-10.6) k/uL RBC (3.80-5.40) m/uL Hgb (11.4-16.0) gm/dL Hct (34.0-46.0) % RDW (11.5-15.5) % Sodium (137-145) mmol/L Chloride 110 H (98-107) mmol/L Carbon Dioxide 21 L (22-30) mmol/L BUN 61 H (7-17) mg/dL Creatinine 2.40 H (0.52-1.04) mg/dL Glucose 160 H (74-99) mg/dL POC Glucose (mg/dL) 159 H 74 L (75-99) mg/dL Hemoglobin A1c (4.0-6.0) % Iron (50-170) ug/dL 10/10/18 10/10/18 10/10/18 Range/Units 05:37 07:02 09:22 WBC (3.8-10.6) k/uL RBC (3.80-5.40) m/uL Hgb (11.4-16.0) gm/dL Hct (34.0-46.0) % RDW (11.5-15.5) % Sodium (137-145) mmol/L Chloride (98-107) mmol/L Carbon Dioxide (22-30) mmol/L BUN (7-17) mg/dL Creatinine (0.52-1.04) mg/dL Glucose (74-99) mg/dL POC Glucose (mg/dL) 70 L 114 H 147 H (75-99) mg/dL Hemoglobin A1c (4.0-6.0) % Iron (50-170) ug/dL 10/10/18 Range/Units 11:49 WBC (3.8-10.6) k/uL RBC (3.80-5.40) m/uL Hgb (11.4-16.0) gm/dL Hct (34.0-46.0) % RDW (11.5-15.5) % Sodium (137-145) mmol/L Chloride (98-107) mmol/L Carbon Dioxide (22-30) mmol/L BUN (7-17) mg/dL Creatinine (0.52-1.04) mg/dL Glucose (74-99) mg/dL POC Glucose (mg/dL) 249 H (75-99) mg/dL Hemoglobin A1c (4.0-6.0) % Iron (50-170) ug/dL Microbiology - Last 24 Hours (Table) 10/08/18 20:37 Urine Culture - Final Urine,Clean Catch 10/09/18 00:15 Blood Culture - Preliminary Blood No Growth after 24 hours
[2018-10-10 14:30] VITALS: BMI 26.9
[2018-10-10] MEDS ORDERED: NITROGLYCERIN SL TABS 0.4 MG TAB SUBLINGUAL PRN (14:48)
[2018-10-10] MEDS ORDERED: HEPARIN SODIUM,PORCINE 5,000 UNIT/ML 1 ML VIAL IV ONE (16:03)
[2018-10-10] MEDS ORDERED: HEPARIN SODIUM,PORCINE 5,000 UNIT/ML 1 ML VIAL IV PRN (16:03)
[2018-10-10] MEDS ORDERED: ASPIRIN 325 MG TAB PO STA (16:12)
[2018-10-10] MEDS ORDERED: HEPARIN SOD,PORK IN 0.45% NACL 25,000 UNIT in 0.45% NACL 1 250ML.BAG IV SCH (16:15)
--- NOTE | 2018-10-10 16:18 | P.PN ---
Subjective Progress Note Date: 10/10/18 Principal diagnosis: shortness of breath Patient will 48-year-old female with a history of systolic congestive heart failure with last known ejection fraction 45-50%, chronic kidney disease stage III, chronic anemia, diabetes mellitus type 2 insulin requiring, and COPD who presented to the hospital with a 3 day history of exertional dyspnea and shortness of breath. In the ER she underwent an extensive evaluation. Her vital signs were within normal limits. Laboratory analysis was consistent with her known anemia and hemoglobin of 8.5, creatinine was 2.19 near her baseline, glucose was elevated at 202, and BNP significantly elevated at 10,200. Chest x- ray showed possible bilateral infiltrates. She was started on Zithromax, Rocephin, IV steroids for possible COPD exacerbation, and IV Lasix for CHF exacerbation. Arrangements are made for admission. By the morning after admission she felt significantly improved. She was transitioned to oral lasix and oral prednisone. I originally say patient at 11 am. She was feeling well. Tired due to changes in BS and being up all night. Not having chest pain or shortness of breath. no wheeze and non productive cough. Patient started having chest pain at approx 2 pm, called by nursing. EKG ordered immediately and troponin ordered. Patient evaluated at my first availability. Her troponin was positive at 0.44. She was up and walking to the bathroom. She was in a bit of a hurry. She became winded and felt dizzy. She got back to bed and developed left-sided chest pain that was retrosternal and underneath her left breast. It radiated through to her back and up to her neck. She felt nauseous, winded, and flushed. She denied any numbness or tingling. She denied any diaphoresis. She had oxygen placed into the nitro and her chest pain resolved. She then felt very fatigued after the episode. Objective - Vital Signs Vital signs: Vital Signs Temp 98.3 F 10/10/18 08:00 Pulse 72 10/10/18 12:03 Resp 18 10/10/18 15:14 BP 143/67 10/10/18 15:14 Pulse Ox 94 L 10/10/18 15:14 Intake & Output 10/09/18 10/10/18 10/10/18 18:59 06:59 18:59 Intake Total 1360 579.09 1460 Balance 1360 579.09 1460 Weight 68.8 kg Intake: Intake, IV Titration 329.09 720 Amount Insulin Regular 100 unit 29.09 In Sodium Chloride 0.9% 100 ml @ 0.1 UNITS/KG/HR 6.949 mls/hr IV .[id number] [facility] Rx#:[id number] Sodium Chloride 0.9% 1, 300 720 000 ml @ 120 mls/hr IV . Q8H20M [facility] Rx#:[id number] Oral 1360 250 740 Other: Voiding Method Toilet # Voids 2 1 1 - Exam General: non toxic, no distress, appears older than stated age Derm: warm, dry Head: atraumatic, normocephalic, symmetric Eyes: EOMI, no lid lag, anicteric sclera Mouth: no lip lesion, mucus membranes moist Cardiovascular: S1S2 reg, no murmur, positive posterior tibial pulse bilateral, Lungs: Faint crackles right base , no accessory muscle use Abdominal: soft, nontender to palpation, no guarding, no appreciable organomegaly Ext: no gross muscle atrophy, no edema, no contractures Neuro: CN II-XI grossly intact, no focal neuro deficits Psych: Alert, oriented, appropriate affect - Labs CBC & Chem 7: 10/10/18 03:46 10/10/18 03:46 Labs: Abnormal Lab Results - Last 24 Hours (Table) 10/09/18 10/09/18 10/09/18 Range/Units 07:53 07:53 16:56 WBC (3.8-10.6) k/uL RBC (3.80-5.40) m/uL Hgb (11.4-16.0) gm/dL Hct (34.0-46.0) % RDW (11.5-15.5) % Sodium (137-145) mmol/L Chloride (98-107) mmol/L Carbon Dioxide (22-30) mmol/L BUN (7-17) mg/dL Creatinine (0.52-1.04) mg/dL Glucose (74-99) mg/dL POC Glucose (mg/dL) 403 H (75-99) mg/dL Hemoglobin A1c 7.5 H (4.0-6.0) % Iron 44 L (50-170) ug/dL Troponin I (0.000-0.034) ng/mL 10/09/18 10/09/18 10/10/18 Range/Units 20:24 23:53 00:24 WBC (3.8-10.6) k/uL RBC (3.80-5.40) m/uL Hgb (11.4-16.0) gm/dL Hct (34.0-46.0) % RDW (11.5-15.5) % Sodium 136 L (137-145) mmol/L Chloride (98-107) mmol/L Carbon Dioxide 19 L (22-30) mmol/L BUN 56 H (7-17) mg/dL Creatinine 2.51 H (0.52-1.04) mg/dL Glucose 491 H (74-99) mg/dL POC Glucose (mg/dL) 554 H 554 H (75-99) mg/dL Hemoglobin A1c (4.0-6.0) % Iron (50-170) ug/dL Troponin I (0.000-0.034) ng/mL 10/10/18 10/10/18 10/10/18 Range/Units 01:56 03:06 03:46 WBC 20.6 H (3.8-10.6) k/uL RBC 2.38 L (3.80-5.40) m/uL Hgb 7.8 L (11.4-16.0) gm/dL Hct 22.9 L (34.0-46.0) % RDW 16.8 H (11.5-15.5) % Sodium (137-145) mmol/L Chloride (98-107) mmol/L Carbon Dioxide (22-30) mmol/L BUN (7-17) mg/dL Creatinine (0.52-1.04) mg/dL Glucose (74-99) mg/dL POC Glucose (mg/dL) 409 H 252 H (75-99) mg/dL Hemoglobin A1c (4.0-6.0) % Iron (50-170) ug/dL Troponin I (0.000-0.034) ng/mL 10/10/18 10/10/18 10/10/18 Range/Units 03:46 04:03 05:02 WBC (3.8-10.6) k/uL RBC (3.80-5.40) m/uL Hgb (11.4-16.0) gm/dL Hct (34.0-46.0) % RDW (11.5-15.5) % Sodium (137-145) mmol/L Chloride 110 H (98-107) mmol/L Carbon Dioxide 21 L (22-30) mmol/L BUN 61 H (7-17) mg/dL Creatinine 2.40 H (0.52-1.04) mg/dL Glucose 160 H (74-99) mg/dL POC Glucose (mg/dL) 159 H 74 L (75-99) mg/dL Hemoglobin A1c (4.0-6.0) % Iron (50-170) ug/dL Troponin I (0.000-0.034) ng/mL 10/10/18 10/10/18 10/10/18 Range/Units 05:37 07:02 09:22 WBC (3.8-10.6) k/uL RBC (3.80-5.40) m/uL Hgb (11.4-16.0) gm/dL Hct (34.0-46.0) % RDW (11.5-15.5) % Sodium (137-145) mmol/L Chloride (98-107) mmol/L Carbon Dioxide (22-30) mmol/L BUN (7-17) mg/dL Creatinine (0.52-1.04) mg/dL Glucose (74-99) mg/dL POC Glucose (mg/dL) 70 L 114 H 147 H (75-99) mg/dL Hemoglobin A1c (4.0-6.0) % Iron (50-170) ug/dL Troponin I (0.000-0.034) ng/mL 10/10/18 10/10/18 Range/Units 11:49 14:54 WBC (3.8-10.6) k/uL RBC (3.80-5.40) m/uL Hgb (11.4-16.0) gm/dL Hct (34.0-46.0) % RDW (11.5-15.5) % Sodium (137-145) mmol/L Chloride (98-107) mmol/L Carbon Dioxide (22-30) mmol/L BUN (7-17) mg/dL Creatinine (0.52-1.04) mg/dL Glucose (74-99) mg/dL POC Glucose (mg/dL) 249 H (75-99) mg/dL Hemoglobin A1c (4.0-6.0) % Iron (50-170) ug/dL Troponin I 0.044 H* (0.000-0.034) ng/mL Microbiology - Last 24 Hours (Table) 10/08/18 20:37 Urine Culture - Final Urine,Clean Catch 10/09/18 00:15 Blood Culture - Preliminary Blood No Growth after 24 hours Assessment and Plan Assessment: Unstable angina -Aspirin 1 now and in a.m. -Nitropatch placed -Heparin drip -Transfer to [facility] -Nurse to page cardio make them aware of chest pain -Patient already on metoprolol -Nothing by mouth after midnight -Troponin every 6 hours Acute exacerbation of COPD -Transition from IV to oral steroids -Bronchodilators -Pulmonary hygiene -Tobacco cessation - Zithromax for COPD exacerbation Acute exacerbation of CHF, EF 45-50%, mild - On home Lasix dose - continue with metoprolol - not on MI due to renal function - strict I and O daily weights - Cardio recs appreciated DM2 with hyperglycemia - Was on insulin drip overnight, received IV insulin and 70/30 -Resume Levemir, sliding scale, and fixed dose insulin - add fixed dose to sliding scale. - follow BS - A1C pending - plan on resuming sulfonaurea on discharge as that is preferred by PCP Tobacco abuse - cessation - nicotine replacement HTN, controlled - controlled - continue current meds - follow BP HLD - statin Chronic Anemia - follow CBC - further outpatient work-up CML - outpatient treatment Pneumonia ruled out Transfer to [facility] DVT prophylaxis: Heparin Discussed with: Patient, nursing Anticipated discharge: in AM Anticipated discharge place: home A total of 35 minutes was spent on the care of this complex patient more than 50% of the time was spent in counseling and care coordination.
[2018-10-10] MEDS ORDERED: INSULIN DETEMIR (LEVEMIR) 100 UNIT/ML SYR SQ SCH ×2 (16:30→21:00)
[2018-10-10 17:06] LABS: Anisocytosis Slight; Basophils % (A) 0 %; Eosinophils # (A) 0.1 k/uL (0-0.7); Eosinophils % (A) 0 %; HCT 23.5 % (34.0-46.0); HGB 7.9 gm/dL (11.4-16.0); Lymphocytes # (A) 0.5 k/uL (1.0-4.8); Lymphocytes % (A) 3 %; MCH 32.6 pg (25.0-35.0); MCHC 33.6 g/dL (31.0-37.0); MCV 97.2 fL (80.0-100.0); Macrocytosis Slight; Mean Platelet Volume 9.5; Monocytes # (A) 0.4 k/uL (0-1.0); Monocytes % (A) 2 %; Neutrophils % (A) 95 %; Platelet Count 223 k/uL (150-450); RBC 2.42 m/uL (3.80-5.40); RDW 17.9 % (11.5-15.5)
[2018-10-10 17:22] LABS: Glucose,Whole Blood 314 mg/dL (75-99)
[2018-10-10] MEDS: NITROGLYCERIN OINT 1 INCH/GM PACKET TOPICAL SCH ×2 (17:23→23:33)
[2018-10-10 17:25] LABS: Prothrombin Time 10.6 sec (9.0-12.0)
--- NOTE | 2018-10-10 17:58 | P.PN ---
Subjective Progress Note Date: 10/10/18 On today's evaluation of 10/10/2018 the patient is feeling better and less short of breath compared to yesterday. The patient is known to have mild COPD with an FEV1 ranging between 76 and 81% of predicted. The patient also has hypertension, diabetes mellitus type 2, history of alcoholism, chronic renal failure and history of CHF. The patient came in with increased shortness of breath. The patient will also having some nonspecific chest pain along with the cough and. No fever. No chills. No significant pneumonias. No nausea. No vomiting. No altered mentation. Overall condition is improving. Smoking cessation counseling was done. The patient has been maintained on Incruse on outpatient basis regarding her COPD. The white cell count is elevated today at 20. This needs to be monitored. Consider steroid effect. Creatinine is at 2.5 noted the patient also has a component of chronic kidney disease. The patient also developed a component of steroid-induced hyperglycemia. Blood sugars are quite elevated this morning. The patient is currently on prednisone burst taper on IV Solu Medrol has been discontinued. She was given Chantix for smoking cessation. She is on oral Zithromax. She is on bronchodilators [id number]. Objective - Vital Signs Vital signs: Vital Signs Temp 98.3 F 10/10/18 08:00 Pulse 96 10/10/18 17:21 Resp 18 10/10/18 15:14 BP 145/67 10/10/18 17:20 Pulse Ox 94 L 10/10/18 15:14 Intake & Output 10/09/18 10/10/18 10/10/18 18:59 06:59 18:59 Intake Total 1360 579.09 1460 Balance 1360 579.09 1460 Weight 71.6 kg Intake: Intake, IV Titration 329.09 720 Amount Insulin Regular 100 unit 29.09 In Sodium Chloride 0.9% 100 ml @ 0.1 UNITS/KG/HR 6.949 mls/hr IV .[id number] [facility] Rx#:[id number] Sodium Chloride 0.9% 1, 300 720 000 ml @ 120 mls/hr IV . Q8H20M [facility] Rx#:[id number] Oral 1360 250 740 Other: Voiding Method Toilet # Voids 2 1 1 - Exam General: non toxic, no distress, appears older than stated age Derm: warm, dry Head: atraumatic, normocephalic, symmetric Eyes: EOMI, no lid lag, anicteric sclera Mouth: no lip lesion, mucus membranes moist Cardiovascular: S1S2 reg, no murmur, positive posterior tibial pulse bilateral, Lungs: Faint crackles right base , no accessory muscle use Abdominal: soft, nontender to palpation, no guarding, no appreciable organomegaly Ext: no gross muscle atrophy, no edema, no contractures Neuro: CN II-XI grossly intact, no focal neuro deficits Psych: Alert, oriented, appropriate affect - Labs CBC & Chem 7: 10/10/18 16:42 10/10/18 03:46 Labs: Abnormal Lab Results - Last 24 Hours (Table) 10/09/18 10/09/18 10/09/18 Range/Units 07:53 07:53 20:24 WBC (3.8-10.6) k/uL RBC (3.80-5.40) m/uL Hgb (11.4-16.0) gm/dL Hct (34.0-46.0) % RDW (11.5-15.5) % Neutrophils # (1.3-7.7) k/uL Lymphocytes # (1.0-4.8) k/uL Sodium (137-145) mmol/L Chloride (98-107) mmol/L Carbon Dioxide (22-30) mmol/L BUN (7-17) mg/dL Creatinine (0.52-1.04) mg/dL Glucose (74-99) mg/dL POC Glucose (mg/dL) 554 H (75-99) mg/dL Hemoglobin A1c 7.5 H (4.0-6.0) % Iron 44 L (50-170) ug/dL Troponin I (0.000-0.034) ng/mL 10/09/18 10/10/18 10/10/18 Range/Units 23:53 00:24 01:56 WBC (3.8-10.6) k/uL RBC (3.80-5.40) m/uL Hgb (11.4-16.0) gm/dL Hct (34.0-46.0) % RDW (11.5-15.5) % Neutrophils # (1.3-7.7) k/uL Lymphocytes # (1.0-4.8) k/uL Sodium 136 L (137-145) mmol/L Chloride (98-107) mmol/L Carbon Dioxide 19 L (22-30) mmol/L BUN 56 H (7-17) mg/dL Creatinine 2.51 H (0.52-1.04) mg/dL Glucose 491 H (74-99) mg/dL POC Glucose (mg/dL) 554 H 409 H (75-99) mg/dL Hemoglobin A1c (4.0-6.0) % Iron (50-170) ug/dL Troponin I (0.000-0.034) ng/mL 10/10/18 10/10/18 10/10/18 Range/Units 03:06 03:46 03:46 WBC 20.6 H (3.8-10.6) k/uL RBC 2.38 L (3.80-5.40) m/uL Hgb 7.8 L (11.4-16.0) gm/dL Hct 22.9 L (34.0-46.0) % RDW 16.8 H (11.5-15.5) % Neutrophils # (1.3-7.7) k/uL Lymphocytes # (1.0-4.8) k/uL Sodium (137-145) mmol/L Chloride 110 H (98-107) mmol/L Carbon Dioxide 21 L (22-30) mmol/L BUN 61 H (7-17) mg/dL Creatinine 2.40 H (0.52-1.04) mg/dL Glucose 160 H (74-99) mg/dL POC Glucose (mg/dL) 252 H (75-99) mg/dL Hemoglobin A1c (4.0-6.0) % Iron (50-170) ug/dL Troponin I (0.000-0.034) ng/mL 10/10/18 10/10/18 10/10/18 Range/Units 04:03 05:02 05:37 WBC (3.8-10.6) k/uL RBC (3.80-5.40) m/uL Hgb (11.4-16.0) gm/dL Hct (34.0-46.0) % RDW (11.5-15.5) % Neutrophils # (1.3-7.7) k/uL Lymphocytes # (1.0-4.8) k/uL Sodium (137-145) mmol/L Chloride (98-107) mmol/L Carbon Dioxide (22-30) mmol/L BUN (7-17) mg/dL Creatinine (0.52-1.04) mg/dL Glucose (74-99) mg/dL POC Glucose (mg/dL) 159 H 74 L 70 L (75-99) mg/dL Hemoglobin A1c (4.0-6.0) % Iron (50-170) ug/dL Troponin I (0.000-0.034) ng/mL 10/10/18 10/10/18 10/10/18 Range/Units 07:02 09:22 11:49 WBC (3.8-10.6) k/uL RBC (3.80-5.40) m/uL Hgb (11.4-16.0) gm/dL Hct (34.0-46.0) % RDW (11.5-15.5) % Neutrophils # (1.3-7.7) k/uL Lymphocytes # (1.0-4.8) k/uL Sodium (137-145) mmol/L Chloride (98-107) mmol/L Carbon Dioxide (22-30) mmol/L BUN (7-17) mg/dL Creatinine (0.52-1.04) mg/dL Glucose (74-99) mg/dL POC Glucose (mg/dL) 114 H 147 H 249 H (75-99) mg/dL Hemoglobin A1c (4.0-6.0) % Iron (50-170) ug/dL Troponin I (0.000-0.034) ng/mL 10/10/18 10/10/18 10/10/18 Range/Units 14:54 16:42 17:08 WBC 20.0 H (3.8-10.6) k/uL RBC 2.42 L (3.80-5.40) m/uL Hgb 7.9 L (11.4-16.0) gm/dL Hct 23.5 L (34.0-46.0) % RDW 17.9 H (11.5-15.5) % Neutrophils # 19.0 H (1.3-7.7) k/uL Lymphocytes # 0.5 L (1.0-4.8) k/uL Sodium (137-145) mmol/L Chloride (98-107) mmol/L Carbon Dioxide (22-30) mmol/L BUN (7-17) mg/dL Creatinine (0.52-1.04) mg/dL Glucose (74-99) mg/dL POC Glucose (mg/dL) 314 H (75-99) mg/dL Hemoglobin A1c (4.0-6.0) % Iron (50-170) ug/dL Troponin I 0.044 H* (0.000-0.034) ng/mL Microbiology - Last 24 Hours (Table) 10/08/18 20:37 Urine Culture - Final Urine,Clean Catch 10/09/18 00:15 Blood Culture - Preliminary Blood No Growth after 24 hours Assessment and Plan Plan: 1 acute COPD exacerbation with secondary shortness of breath. The patient is approved considerably and the patient was taken off the IV Solu-Medrol and the patient on a prednisone burst taper. Based on FEV1 is in order of 76-81% of predicted. The acute exacerbation was probably related to pneumonia as the patient developed some bilateral pulmonary infiltrates in lung bases bilaterally right more than left. There was also some blunting of the right costophrenic angle. Consider also a component of CHF nontender the patient's BNP level was quite elevated time of admission. 2 chronic systolic heart failure with an ejection fraction of 45% and moderate to severe mitral regurgitation 3 shortness of breath secondary to above 4 acute on chronic hypoxic respiratory failure 5 hypertension 6 hyperlipidemia 7 peripheral vascular disease 8 chronic kidney disease , stage III 9 diabetes mellitus with steroid-induced hyperglycemia 10 chronic anemia, likely anemia of chronic disease, the hemoglobin is at 7.9 11 acute leukocytosis, consider steroid-induced Plan Agree on prednisone burst taper and discontinue the IV Solu Medrol as the patient developed steroid-induced hyperglycemia. Monitor blood sugar. Monitor renal function. Continue DuoNeb nebulized treatments around the clock. Continue Zithromax. Repeat chest x-ray in the morning. Patient responded to d iuretics with IV Lasix. Monitor renal function. We'll continue to follow and make further recommendations based on her progress. In regards to the cardiac status, the patient is on IV heparin. Heparin management will be kept up to cardiology. There is concern of an underlying ischemic heart disease and mitral regurgitation based on previous echocardiograms. Repeat chest x-ray in the morning. Smoking cessation counseling was done. Patient is on Chantix.
[2018-10-10 20:28] LABS: Glucose,Whole Blood 393 mg/dL (75-99)
[2018-10-10] MEDS: ATORVASTATIN 80 MG TAB PO SCH (21:37)
[2018-10-10] MEDS ORDERED: LEVOFLOXACIN 500MG-D5W PMX 500 MG in DEXTROSE/WATER 1 100ML.BAG IVPB SCH (21:45)
[2018-10-10 22:19] LABS: Glucose,Whole Blood 411 mg/dL (75-99)
[2018-10-10] MEDS: METOPROLOL SUCCINATE (ER) 100 MG TAB.ER.24H PO SCH (22:20)
[2018-10-10 23:26] LABS: Glucose,Whole Blood 336 mg/dL (75-99)
[2018-10-11 00:03] LABS: Glucose,Whole Blood 227 mg/dL (75-99)
[2018-10-11 00:57] LABS: Glucose,Whole Blood 99 mg/dL (75-99)
[2018-10-11 02:06] LABS: Glucose,Whole Blood 52 mg/dL (75-99)
[2018-10-11 02:25] LABS: Glucose,Whole Blood 65 mg/dL (75-99)
[2018-10-11 02:42] LABS: Glucose,Whole Blood 100 mg/dL (75-99)
[2018-10-11 03:13] LABS: Glucose,Whole Blood 137 mg/dL (75-99)
[2018-10-11 03:42] LABS: Anisocytosis Slight; Basophils % (A) 0 %; Eosinophils # (A) 0.1 k/uL (0-0.7); Eosinophils % (A) 0 %; HCT 23.5 % (34.0-46.0); HGB 7.8 gm/dL (11.4-16.0); Lymphocytes # (A) 0.6 k/uL (1.0-4.8); Lymphocytes % (A) 4 %; MCH 32.1 pg (25.0-35.0); MCHC 33.4 g/dL (31.0-37.0); MCV 96.3 fL (80.0-100.0); Macrocytosis Slight; Mean Platelet Volume 8.8; Monocytes # (A) 0.6 k/uL (0-1.0); Monocytes % (A) 3 %; Neutrophils # (A) 16.6 k/uL (1.3-7.7); Neutrophils % (A) 93 %; Platelet Count 218 k/uL (150-450); RBC 2.44 m/uL (3.80-5.40); RDW 18.1 % (11.5-15.5); WBC 17.9 k/uL (3.8-10.6)
[2018-10-11 03:49] LABS: Glucose,Whole Blood 134 mg/dL (75-99)
[2018-10-11 04:28] LABS: Calcium 9.4 mg/dL (8.4-10.2); Potassium 4.7 mmol/L (3.5-5.1)
[2018-10-11 04:57] LABS: Glucose,Whole Blood 139 mg/dL (75-99)
[2018-10-11] MEDS: NITROGLYCERIN OINT 1 INCH/GM PACKET TOPICAL SCH (05:47)
[2018-10-11 06:09] LABS: Glucose,Whole Blood 126 mg/dL (75-99)
[2018-10-11 07:13] LABS: Glucose,Whole Blood 129 mg/dL (75-99)
[2018-10-11 07:35] LABS: Glucose,Whole Blood 134 mg/dL (75-99)
--- NOTE | 2018-10-11 08:53 | XR ---
EXAMINATION TYPE: XR chest 2V DATE OF EXAM: 10/11/2018 COMPARISON: 10/08/2018 HISTORY: Pneumonia follow-up exam TECHNIQUE: Frontal and lateral views of the chest are obtained. FINDINGS: There is improved aeration of the lungs with strand-like scattered areas of atelectasis in the lung bases and midlungs. Underlying COPD is seen as well as an enlarged cardiac mediastinal silh ouette that is stable. No new focal consolidation, pulmonary vascular congestion or pneumothorax is i dentified. No acute osseous pathology is seen. Trace right pleural effusion is unchanged. IMPRESSION: Improved aeration of the lungs with residual trace right pleural effusion and multifocal subsegmental atelectasis.
[2018-10-11] MEDS: IPRATROPIUM-ALBUTEROL 3 ML NEB INHALATION SCH ×4 (09:16→19:57)
[2018-10-11] MEDS: SYMBICORT 160-4.5 MCG INHALER INHALATION SCH ×2 (09:16→19:57)
[2018-10-11] MEDS: ASPIRIN 325 MG TAB PO SCH (09:56)
[2018-10-11] MEDS: AZITHROMYCIN 500 MG TAB PO SCH (09:56)
[2018-10-11] MEDS: CITALOPRAM HYDROBROMIDE 20 MG TAB PO SCH (09:56)
[2018-10-11] MEDS: amLODIPine 10 MG TAB PO SCH (09:56)
[2018-10-11] MEDS: CLOPIDOGREL 75 MG TAB PO SCH (09:57)
[2018-10-11] MEDS: FAMOTIDINE 20 MG TAB PO SCH (09:57)
[2018-10-11] MEDS: FERROUS SULFATE 325 MG TAB PO SCH (09:57)
[2018-10-11] MEDS: hydrALAZINE HCL 25 MG TAB PO SCH ×2 (09:58→20:49)
[2018-10-11] MEDS: FUROSEMIDE 20 MG TAB PO SCH ×2 (09:58→17:32)
[2018-10-11] MEDS: ISOSORBIDE MONONITRATE ER 60 MG TAB.ER.24H PO SCH (09:59)
[2018-10-11] MEDS: VARENICLINE 0.5 MG TAB PO SCH ×2 (09:59→20:49)
[2018-10-11] MEDS: lamoTRIgine 25 MG TAB PO SCH ×2 (09:59→20:49)
[2018-10-11 11:45] LABS: Glucose,Whole Blood 116 mg/dL (75-99)
[2018-10-11] MEDS: INSULIN ASPART (NovoLOG) 100 UNIT/ML VIAL SQ SCH ×5 (12:55→21:55)
--- NOTE | 2018-10-11 13:03 | P.PN ---
Subjective Progress Note Date: 10/11/18 On today's evaluation of 10/10/2018 the patient is feeling better and less short of breath compared to yesterday. The patient is known to have mild COPD with an FEV1 ranging between 76 and 81% of predicted. The patient also has hypertension, diabetes mellitus type 2, history of alcoholism, chronic renal failure and history of CHF. The patient came in with increased shortness of breath. The patient will also having some nonspecific chest pain along with the cough and. No fever. No chills. No significant pneumonias. No nausea. No vomiting. No altered mentation. Overall condition is improving. Smoking cessation counseling was done. The patient has been maintained on Incruse on outpatient basis regarding her COPD. The white cell count is elevated today at 20. This needs to be monitored. Consider steroid effect. Creatinine is at 2.5 noted the patient also has a component of chronic kidney disease. The patient also developed a component of steroid-induced hyperglycemia. Blood sugars are quite elevated this morning. The patient is currently on prednisone burst taper on IV Solu Medrol has been discontinued. She was given Chantix for smoking cessation. She is on oral Zithromax. She is on bronchodilators [id number]. On 10/11/2018 since he is doing very well. The patient has no specific complaints pH is less short of breath compared to yesterday. No chest pain. No nausea or vomiting. Troponins were minimally elevated and the patient was started on IV heparin and cardiology is following that the case. The patient is on Zithromax 5 mg by mouth daily for suspected pneumonia. The patient on DuoNeb about treatments around the clock. The patient is receiving a prednisone burst taper starting with 20 mg and the patient was given Chantix for smoking cessati on. Noted the patient also has a moderate to severe mitral regurgitation and a troponin leak and she will need further cardiac evaluation including possibly a JOSEP and possibly a catheterization at a later stage. Overall condition stable. No altered mentation. Tolerating her diet. Objective - Vital Signs Vital signs: Vital Signs Temp 97.9 F 10/11/18 08:00 Pulse 55 L 10/11/18 09:40 Resp 15 10/11/18 08:00 BP 149/73 10/11/18 08:00 Pulse Ox 94 L 10/11/18 08:00 Intake & Output 0610/11/18 10/11/18 18:59 06:59 18:59 Intake Total 1460 937.475 Output Total 1300 Balance 1460 -362.525 Weight 71.6 kg 69.9 kg Intake: Intake, IV Titration 720 457.475 Amount Heparin Sod,Pork in 0.45% 90.678 NaCl 25,000 unit In 0.45 % NaCl 1 250ml.bag @ 12 UNITS/KG/HR 8.256 mls/hr IV .Q24H [facility] Rx#: [id number] Insulin Regular 100 unit 46.797 In Sodium Chloride 0.9% 100 ml @ Titrate IV .Q0M [facility] Rx#:[id number] Sodium Chloride 0.9% 1, 720 320 000 ml @ 120 mls/hr IV . Q8H20M [facility] Rx#:[id number] Oral 740 480 Output: Urine 1300 Other: Voiding Method Bedside Commode Bedside Commode # Voids 1 2 - Exam General: non toxic, no distress, appears older than stated age Derm: warm, dry Head: atraumatic, normocephalic, symmetric Eyes: EOMI, no lid lag, anicteric sclera Mouth: no lip lesion, mucus membranes moist Cardiovascular: S1S2 reg, no murmur, positive posterior tibial pulse bilateral, Lungs: Faint crackles right base , no accessory muscle use Abdominal: soft, nontender to palpation, no guarding, no appreciable organomegaly Ext: no gross muscle atrophy, no edema, no contractures Neuro: CN II-XI grossly intact, no focal neuro deficits Psych: Alert, oriented, appropriate affect - Labs CBC & Chem 7: 10/11/18 03:25 10/11/18 03:25 Labs: Abnormal Lab Results - Last 24 Hours (Table) 10/10/18 10/10/18 10/10/18 Range/Units 14:54 16:42 17:08 WBC 20.0 H (3.8-10.6) k/uL RBC 2.42 L (3.80-5.40) m/uL Hgb 7.9 L (11.4-16.0) gm/dL Hct 23.5 L (34.0-46.0) % RDW 17.9 H (11.5-15.5) % Neutrophils # 19.0 H (1.3-7.7) k/uL Lymphocytes # 0.5 L (1.0-4.8) k/uL APTT (22.0-30.0) sec Chloride (98-107) mmol/L Carbon Dioxide (22-30) mmol/L BUN (7-17) mg/dL Creatinine (0.52-1.04) mg/dL Glucose (74-99) mg/dL POC Glucose (mg/dL) 314 H (75-99) mg/dL Troponin I 0.044 H* (0.000-0.034) ng/mL 10/10/18 10/10/18 10/10/18 Range/Units 20:26 20:47 20:47 WBC (3.8-10.6) k/uL RBC (3.80-5.40) m/uL Hgb (11.4-16.0) gm/dL Hct (34.0-46.0) % RDW (11.5-15.5) % Neutrophils # (1.3-7.7) k/uL Lymphocytes # (1.0-4.8) k/uL APTT 68.9 H (22.0-30.0) sec Chloride (98-107) mmol/L Carbon Dioxide (22-30) mmol/L BUN (7-17) mg/dL Creatinine (0.52-1.04) mg/dL Glucose (74-99) mg/dL POC Glucose (mg/dL) 393 H (75-99) mg/dL Troponin I 0.039 H* (0.000-0.034) ng/mL 10/10/18 10/10/18 10/10/18 Range/Units 22:18 23:24 23:53 WBC (3.8-10.6) k/uL RBC (3.80-5.40) m/uL Hgb (11.4-16.0) gm/dL Hct (34.0-46.0) % RDW (11.5-15.5) % Neutrophils # (1.3-7.7) k/uL Lymphocytes # (1.0-4.8) k/uL APTT 52.8 H (22.0-30.0) sec Chloride (98-107) mmol/L Carbon Dioxide (22-30) mmol/L BUN (7-17) mg/dL Creatinine (0.52-1.04) mg/dL Glucose (74-99) mg/dL POC Glucose (mg/dL) 411 H 336 H (75-99) mg/dL Troponin I (0.000-0.034) ng/mL 10/11/18 10/11/18 10/11/18 Range/Units 00:01 02:04 02:23 WBC (3.8-10.6) k/uL RBC (3.80-5.40) m/uL Hgb (11.4-16.0) gm/dL Hct (34.0-46.0) % RDW (11.5-15.5) % Neutrophils # (1.3-7.7) k/uL Lymphocytes # (1.0-4.8) k/uL APTT (22.0-30.0) sec Chloride (98-107) mmol/L Carbon Dioxide (22-30) mmol/L BUN (7-17) mg/dL Creatinine (0.52-1.04) mg/dL Glucose (74-99) mg/dL POC Glucose (mg/dL) 227 H 52 L 65 L (75-99) mg/dL Troponin I (0.000-0.034) ng/mL 10/11/18 10/11/18 10/11/18 Range/Units 02:40 03:11 03:25 WBC (3.8-10.6) k/uL RBC (3.80-5.40) m/uL Hgb (11.4-16.0) gm/dL Hct (34.0-46.0) % RDW (11.5-15.5) % Neutrophils # (1.3-7.7) k/uL Lymphocytes # (1.0-4.8) k/uL APTT (22.0-30.0) sec Chloride (98-107) mmol/L Carbon Dioxide (22-30) mmol/L BUN (7-17) mg/dL Creatinine (0.52-1.04) mg/dL Glucose (74-99) mg/dL POC Glucose (mg/dL) 100 H 137 H (75-99) mg/dL Troponin I 0.044 H* (0.000-0.034) ng/mL 10/11/18 10/11/18 10/11/18 Range/Units 03:25 03:25 03:25 WBC 17.9 H (3.8-10.6) k/uL RBC 2.44 L (3.80-5.40) m/uL Hgb 7.8 L (11.4-16.0) gm/dL Hct 23.5 L (34.0-46.0) % RDW 18.1 H (11.5-15.5) % Neutrophils # 16.6 H (1.3-7.7) k/uL Lymphocytes # 0.6 L (1.0-4.8) k/uL APTT 45.1 H (22.0-30.0) sec Chloride 115 H (98-107) mmol/L Carbon Dioxide 19 L (22-30) mmol/L BUN 68 H (7-17) mg/dL Creatinine 2.58 H (0.52-1.04) mg/dL Glucose 121 H (74-99) mg/dL POC Glucose (mg/dL) (75-99) mg/dL Troponin I (0.000-0.034) ng/mL 10/11/18 10/11/18 10/11/18 Range/Units 03:48 04:55 06:08 WBC (3.8-10.6) k/uL RBC (3.80-5.40) m/uL Hgb (11.4-16.0) gm/dL Hct (34.0-46.0) % RDW (11.5-15.5) % Neutrophils # (1.3-7.7) k/uL Lymphocytes # (1.0-4.8) k/uL APTT (22.0-30.0) sec Chloride (98-107) mmol/L Carbon Dioxide (22-30) mmol/L BUN (7-17) mg/dL Creatinine (0.52-1.04) mg/dL Glucose (74-99) mg/dL POC Glucose (mg/dL) 134 H 139 H 126 H (75-99) mg/dL Troponin I (0.000-0.034) ng/mL 10/11/18 10/11/18 10/11/18 Range/Units 07:12 07:33 11:43 WBC (3.8-10.6) k/uL RBC (3.80-5.40) m/uL Hgb (11.4-16.0) gm/dL Hct (34.0-46.0) % RDW (11.5-15.5) % Neutrophils # (1.3-7.7) k/uL Lymphocytes # (1.0-4.8) k/uL APTT (22.0-30.0) sec Chloride (98-107) mmol/L Carbon Dioxide (22-30) mmol/L BUN (7-17) mg/dL Creatinine (0.52-1.04) mg/dL Glucose (74-99) mg/dL POC Glucose (mg/dL) 129 H 134 H 116 H (75-99) mg/dL Troponin I (0.000-0.034) ng/mL Microbiology - Last 24 Hours (Table) 10/09/18 00:15 Blood Culture - Preliminary Blood No Growth after 48 hours 10/08/18 20:37 Urine Culture - Final Urine,Clean Catch Assessment and Plan Plan: 1 acute COPD exacerbation with secondary shortness of breath. The patient is approved considerably and the patient was taken off the IV Solu-Medrol and the patient on a prednisone burst taper. Based on FEV1 is in order of 76-81% of predicted. The acute exacerbation was probably related to pneumonia as the patient developed some bilateral pulmonary infiltrates in lung bases bilaterally right more than left. There was also some blunting of the right costophrenic angle. Consider also a component of CHF nontender the patient's BNP level was quite elevated time of admission. 2 chronic systolic heart failure with an ejection fraction of 45% and moderate to severe mitral regurgitation 3 shortness of breath secondary to above 4 acute on chronic hypoxic respiratory failure 5 hypertension 6 hyperlipidemia 7 peripheral vascular disease 8 chronic kidney disease , stage III 9 diabetes mellitus with steroid-induced hyperglycemia 10 chronic anemia, likely anemia of chronic disease, the hemoglobin is at 7.8 11 acute leukocytosis, consider steroid-induced, improving and the white cell count is down to 17.9 Plan Continue Zithromax. Continue DuoNeb's. Continue prednisone burst taper. Currently on 20 mg nightly a daily basis. Renal function is stable with a creatinine of 2.5. No major electrolyte disturbances. She has a component of non-anion gap metabolic acidosis in a patient with chronic stage III kidney disease. Hemoglobin stable at 7.9. Shortness was improving. She is advancing her diet. We'll continue to follow. Cardiology to follow-up the patient regard ing troponin leak. She may need a JOSEP and aggressive mitral regurgitation and possibly catheterization later stage and this will largely depend on renal function and ability to take contrast.
[2018-10-11] MEDS: INSULIN DETEMIR (LEVEMIR) 100 UNIT/ML SYR SQ SCH (13:50)
--- NOTE | 2018-10-11 15:43 | P.PN ---
Subjective Progress Note Date: 10/11/18 (Delayed charting patient seen at 0800) Principal diagnosis: shortness of breath Patient will 48-year-old female with a history of systolic congestive heart failure with last known ejection fraction 45-50%, chronic kidney disease stage III, chronic anemia, diabetes mellitus type 2 insulin requiring, and COPD who presented to the hospital with a 3 day history of exertional dyspnea and shortness of breath. In the ER she underwent an extensive evaluation. Her vital signs were within normal limits. Laboratory analysis was consistent with her known anemia and hemoglobin of 8.5, creatinine was 2.19 near her baseline, glucose was elevated at 202, and BNP significantly elevated at 10,200. Chest x- ray showed possible bilateral infiltrates. She was started on Zithromax, Rocephin, IV steroids for possible COPD exacerbation, and IV Lasix for CHF exacerbation. Arrangements are made for admission. By the morning after admission she felt significantly improved. She was transitioned to oral lasix and oral prednisone. Patient had an episode of chest pain on 10/10. She was noted to have an elevated troponin at 0.044, and her chest pain improved with the use of nitro. She was initially placed on nitro patch and heparin gtt. Her troponin remained flat. Patient seen and examined at bedside. Patient feels very tired. She states she is no longer having chest pain, she did have one recurrent episode overnight. She denies any difficulty breathing. She denies any lower extremity edema. She has no other complaints currently. Objective - Vital Signs Vital signs: Vital Signs Temp 97.9 F 10/11/18 08:00 Pulse 55 L 10/11/18 09:40 Resp 15 10/11/18 08:00 BP 149/73 10/11/18 08:00 Pulse Ox 94 L 10/11/18 08:00 Intake & Output 10/10/18 10/11/18 10/11/18 18:59 06:59 18:59 Intake Total 1460 937.475 Output Total 1300 Balance 1460 -362.525 Weight 71.6 kg 69.9 kg Intake: Intake, IV Titration 720 457.475 Amount Heparin Sod,Pork in 0.45% 90.678 NaCl 25,000 unit In 0.45 % NaCl 1 250ml.bag @ 12 UNITS/KG/HR 8.256 mls/hr IV .Q24H [facility] Rx#: [id number] Insulin Regular 100 unit 46.797 In Sodium Chloride 0.9% 100 ml @ Titrate IV .Q0M [facility] Rx#:[id number] Sodium Chloride 0.9% 1, 720 320 000 ml @ 120 mls/hr IV . Q8H20M [facility] Rx#:[id number] Oral 740 480 Output: Urine 1300 Other: Voiding Method Bedside Commode Bedside Commode # Voids 1 2 - Exam General: non toxic, no distress, appears older than stated age Derm: warm, dry Head: atraumatic, normocephalic, symmetric Eyes: EOMI, no lid lag, anicteric sclera Mouth: no lip lesion, mucus membranes moist Cardiovascular: S1S2 reg, no murmur, + positive posterior tibial pulse bilateral, Lungs: CTA bilateral, no accessory muscle use Abdominal: soft, nontender to palpation, no guarding, no appreciable organomegaly Ext: no gross muscle atrophy, no edema, no contractures Neuro: CN II-XI grossly intact, no focal neuro deficits Psych: Alert, oriented, appropriate affect - Labs CBC & Chem 7: 10/11/18 03:25 10/11/18 03:25 Labs: Abnormal Lab Results - Last 24 Hours (Table) 10/10/18 10/10/18 10/10/18 Range/Units 14:54 16:42 17:08 WBC 20.0 H (3.8-10.6) k/uL RBC 2.42 L (3.80-5.40) m/uL Hgb 7.9 L (11.4-16.0) gm/dL Hct 23.5 L (34.0-46.0) % RDW 17.9 H (11.5-15.5) % Neutrophils # 19.0 H (1.3-7.7) k/uL Lymphocytes # 0.5 L (1.0-4.8) k/uL APTT (22.0-30.0) sec Chloride (98-107) mmol/L Carbon Dioxide (22-30) mmol/L BUN (7-17) mg/dL Creatinine (0.52-1.04) mg/dL Glucose (74-99) mg/dL POC Glucose (mg/dL) 314 H (75-99) mg/dL Troponin I 0.044 H* (0.000-0.034) ng/mL 10/10/18 10/10/18 10/10/18 Range/Units 20:26 20:47 20:47 WBC (3.8-10.6) k/uL RBC (3.80-5.40) m/uL Hgb (11.4-16.0) gm/dL Hct (34.0-46.0) % RDW (11.5-15.5) % Neutrophils # (1.3-7.7) k/uL Lymphocytes # (1.0-4.8) k/uL APTT 68.9 H (22.0-30.0) sec Chloride (98-107) mmol/L Carbon Dioxide (22-30) mmol/L BUN (7-17) mg/dL Creatinine (0.52-1.04) mg/dL Glucose (74-99) mg/dL POC Glucose (mg/dL) 393 H (75-99) mg/dL Troponin I 0.039 H* (0.000-0.034) ng/mL 10/10/18 10/10/18 10/10/18 Range/Units 22:18 23:24 23:53 WBC (3.8-10.6) k/uL RBC (3.80-5.40) m/uL Hgb (11.4-16.0) gm/dL Hct (34.0-46.0) % RDW (11.5-15.5) % Neutrophils # (1.3-7.7) k/uL Lymphocytes # (1.0-4.8) k/uL APTT 52.8 H (22.0-30.0) sec Chloride (98-107) mmol/L Carbon Dioxide (22-30) mmol/L BUN (7-17) mg/dL Creatinine (0.52-1.04) mg/dL Glucose (74-99) mg/dL POC Glucose (mg/dL) 411 H 336 H (75-99) mg/dL Troponin I (0.000-0.034) ng/mL 10/11/18 10/11/18 10/11/18 Range/Units 00:01 02:04 02:23 WBC (3.8-10.6) k/uL RBC (3.80-5.40) m/uL Hgb (11.4-16.0) gm/dL Hct (34.0-46.0) % RDW (11.5-15.5) % Neutrophils # (1.3-7.7) k/uL Lymphocytes # (1.0-4.8) k/uL APTT (22.0-30.0) sec Chloride (98-107) mmol/L Carbon Dioxide (22-30) mmol/L BUN (7-17) mg/dL Creatinine (0.52-1.04) mg/dL Glucose (74-99) mg/dL POC Glucose (mg/dL) 227 H 52 L 65 L (75-99) mg/dL Troponin I (0.000-0.034) ng/mL 10/11/18 10/11/18 10/11/18 Range/Units 02:40 03:11 03:25 WBC (3.8-10.6) k/uL RBC (3.80-5.40) m/uL Hgb (11.4-16.0) gm/dL Hct (34.0-46.0) % RDW (11.5-15.5) % Neutrophils # (1.3-7.7) k/uL Lymphocytes # (1.0-4.8) k/uL APTT (22.0-30.0) sec Chloride (98-107) mmol/L Carbon Dioxide (22-30) mmol/L BUN (7-17) mg/dL Creatinine (0.52-1.04) mg/dL Glucose (74-99) mg/dL POC Glucose (mg/dL) 100 H 137 H (75-99) mg/dL Troponin I 0.044 H* (0.000-0.034) ng/mL 10/11/18 10/11/18 10/11/18 Range/Units 03:25 03:25 03:25 WBC 17.9 H (3.8-10.6) k/uL RBC 2.44 L (3.80-5.40) m/uL Hgb 7.8 L (11.4-16.0) gm/dL Hct 23.5 L (34.0-46.0) % RDW 18.1 H (11.5-15.5) % Neutrophils # 16.6 H (1.3-7.7) k/uL Lymphocytes # 0.6 L (1.0-4.8) k/uL APTT 45.1 H (22.0-30.0) sec Chloride 115 H (98-107) mmol/L Carbon Dioxide 19 L (22-30) mmol/L BUN 68 H (7-17) mg/dL Creatinine 2.58 H (0.52-1.04) mg/dL Glucose 121 H (74-99) mg/dL POC Glucose (mg/dL) (75-99) mg/dL Troponin I (0.000-0.034) ng/mL 10/11/18 10/11/18 10/11/18 Range/Units 03:48 04:55 06:08 WBC (3.8-10.6) k/uL RBC (3.80-5.40) m/uL Hgb (11.4-16.0) gm/dL Hct (34.0-46.0) % RDW (11.5-15.5) % Neutrophils # (1.3-7.7) k/uL Lymphocytes # (1.0-4.8) k/uL APTT (22.0-30.0) sec Chloride (98-107) mmol/L Carbon Dioxide (22-30) mmol/L BUN (7-17) mg/dL Creatinine (0.52-1.04) mg/dL Glucose (74-99) mg/dL POC Glucose (mg/dL) 134 H 139 H 126 H (75-99) mg/dL Troponin I (0.000-0.034) ng/mL 10/11/18 10/11/18 10/11/18 Range/Units 07:12 07:33 11:43 WBC (3.8-10.6) k/uL RBC (3.80-5.40) m/uL Hgb (11.4-16.0) gm/dL Hct (34.0-46.0) % RDW (11.5-15.5) % Neutrophils # (1.3-7.7) k/uL Lymphocytes # (1.0-4.8) k/uL APTT (22.0-30.0) sec Chloride (98-107) mmol/L Carbon Dioxide (22-30) mmol/L BUN (7-17) mg/dL Creatinine (0.52-1.04) mg/dL Glucose (74-99) mg/dL POC Glucose (mg/dL) 129 H 134 H 116 H (75-99) mg/dL Troponin I (0.000-0.034) ng/mL 10/11/18 Range/Units 12:24 WBC (3.8-10.6) k/uL RBC (3.80-5.40) m/uL Hgb (11.4-16.0) gm/dL Hct (34.0-46.0) % RDW (11.5-15.5) % Neutrophils # (1.3-7.7) k/uL Lymphocytes # (1.0-4.8) k/uL APTT 53.8 H (22.0-30.0) sec Chloride (98-107) mmol/L Carbon Dioxide (22-30) mmol/L BUN (7-17) mg/dL Creatinine (0.52-1.04) mg/dL Glucose (74-99) mg/dL POC Glucose (mg/dL) (75-99) mg/dL Troponin I (0.000-0.034) ng/mL Microbiology - Last 24 Hours (Table) 10/09/18 00:15 Blood Culture - Preliminary Blood No Growth after 48 hours Assessment and Plan Assessment: Chest pain, troponin flat - await cardio recs - on ASA, plavix, lipitor, metoprolol - await echo results Acute exacerbation of COPD - steroid burst and taper -Bronchodilators -Pulmonary hygiene -Tobacco cessation - Zithromax for COPD exacerbation - pulm recs Acute exacerbation of CHF, EF 45-50%, Severe MR - On home Lasix dose - continue with metoprolol - not on MI due to renal function - strict I and O daily weights - Cardio recs appreciated DM2 with hyperglycemia - on insulin gtt again overnight -Resume Levemir, sliding scale, and fixed dose insulin - follow BS - A1C 7.5 - plan on resuming sulfonaurea on discharge as that is preferred by PCP Tobacco abuse - cessation - nicotine replacement HTN, controlled - controlled - continue current meds - follow BP HLD - statin Chronic Anemia - follow CBC - further outpatient work-up CML - outpatient treatment Pneumonia ruled out Plan on home in AM if no further recs from cardio and if BS stable off insulin gtt. DVT prophylaxis: Heparin Discussed with: Patient, nursing Anticipated discharge: in AM Anticipated discharge place: home A total of 35 minutes was spent on the care of this complex patient more than 50% of the time was spent in counseling and care coordination.
--- NOTE | 2018-10-11 17:27 | P.PN ---
Subjective Progress Note Date: 10/11/18 This is a 48-year-old female was admitted to the hospital with increasing shortness of breath which was felt to be multifactorial including COPD and CHF. Apparently on the , that is yesterday, patient had him some chest pain relieved with nitroglycerin. Her troponin values are mildly elevated but bonnie eared to be flat not consistent with coronary syndrome. This morning patient is stable. There is a question of possible cardiac catheterization. We'll continue to monitor her for next 24 hours. If patient has any recurrence of chest pain, may consider cardiac catheterization. Patient patient is also going to have a repeat echocardiogram Objective - Vital Signs Vital signs: Vital Signs Temp 97.9 F 10/11/18 08:00 Pulse 55 L 10/11/18 09:40 Resp 15 10/11/18 08:00 BP 149/73 10/11/18 08:00 Pulse Ox 94 L 10/11/18 08:00 Intake & Output 10/10/18 10/11/18 10/11/18 18:59 06:59 18:59 Intake Total 1460 937.475 Output Total 1300 Balance 1460 -362.525 Weight 71.6 kg 69.9 kg Intake: Intake, IV Titration 720 457.475 Amount Heparin Sod,Pork in 0.45% 90.678 NaCl 25,000 unit In 0.45 % NaCl 1 250ml.bag @ 12 UNITS/KG/HR 8.256 mls/hr IV .Q24H [facility] Rx#: [id number] Insulin Regular 100 unit 46.797 In Sodium Chloride 0.9% 100 ml @ Titrate IV .Q0M [facility] Rx#:[id number] Sodium Chloride 0.9% 1, 720 320 000 ml @ 120 mls/hr IV . Q8H20M [facility] Rx#:[id number] Oral 740 480 Output: Urine 1300 Other: Voiding Method Bedside Commode Bedside Commode # Voids 1 2 - Exam GENERAL EXAM: Patient is alert and oriented and doesn't appear to be in any acute distress HEENT: Normocephalic. Normal reaction of pupils, equal size, normal range of extraocular motion. No erythema or exudates in the throat. NECK: No masses, no nuchal rigidity. CHEST: No chest wall deformity. LUNGS: Diminished breath sounds with scattered rhonchi HEART: S1 and S2 normal with no audible mumurs or gallops. Regular rhythm, femorals equal on both sides.. ABDOMEN: No hepatosplenomegaly, normal bowel sounds, no guarding or rigidity. SKIN: No rashes CENTRAL NERVOUS SYSTEM: No focal deficits. EXTREMITIES: No cyanosis, clubbing or edema. - Labs CBC & Chem 7: 10/11/18 03:25 10/11/18 03:25 Labs: Abnormal Lab Results - Last 24 Hours (Table) 10/10/18 10/10/18 10/10/18 Range/Units 20:26 20:47 20:47 WBC (3.8-10.6) k/uL RBC (3.80-5.40) m/uL Hgb (11.4-16.0) gm/dL Hct (34.0-46.0) % RDW (11.5-15.5) % Neutrophils # (1.3-7.7) k/uL Lymphocytes # (1.0-4.8) k/uL APTT 68.9 H (22.0-30.0) sec Chloride (98-107) mmol/L Carbon Dioxide (22-30) mmol/L BUN (7-17) mg/dL Creatinine (0.52-1.04) mg/dL Glucose (74-99) mg/dL POC Glucose (mg/dL) 393 H (75-99) mg/dL Troponin I 0.039 H* (0.000-0.034) ng/mL 10/10/18 10/10/18 10/10/18 Range/Units 22:18 23:24 23:53 WBC (3.8-10.6) k/uL RBC (3.80-5.40) m/uL Hgb (11.4-16.0) gm/dL Hct (34.0-46.0) % RDW (11.5-15.5) % Neutrophils # (1.3-7.7) k/uL Lymphocytes # (1.0-4.8) k/uL APTT 52.8 H (22.0-30.0) sec Chloride (98-107) mmol/L Carbon Dioxide (22-30) mmol/L BUN (7-17) mg/dL Creatinine (0.52-1.04) mg/dL Glucose (74-99) mg/dL POC Glucose (mg/dL) 411 H 336 H (75-99) mg/dL Troponin I (0.000-0.034) ng/mL 10/11/18 10/11/18 10/11/18 Range/Units 00:01 02:04 02:23 WBC (3.8-10.6) k/uL RBC (3.80-5.40) m/uL Hgb (11.4-16.0) gm/dL Hct (34.0-46.0) % RDW (11.5-15.5) % Neutrophils # (1.3-7.7) k/uL Lymphocytes # (1.0-4.8) k/uL APTT (22.0-30.0) sec Chloride (98-107) mmol/L Carbon Dioxide (22-30) mmol/L BUN (7-17) mg/dL Creatinine (0.52-1.04) mg/dL Glucose (74-99) mg/dL POC Glucose (mg/dL) 227 H 52 L 65 L (75-99) mg/dL Troponin I (0.000-0.034) ng/mL 10/11/18 10/11/18 10/11/18 Range/Units 02:40 03:11 03:25 WBC (3.8-10.6) k/uL RBC (3.80-5.40) m/uL Hgb (11.4-16.0) gm/dL Hct (34.0-46.0) % RDW (11.5-15.5) % Neutrophils # (1.3-7.7) k/uL Lymphocytes # (1.0-4.8) k/uL APTT (22.0-30.0) sec Chloride (98-107) mmol/L Carbon Dioxide (22-30) mmol/L BUN (7-17) mg/dL Creatinine (0.52-1.04) mg/dL Glucose (74-99) mg/dL POC Glucose (mg/dL) 100 H 137 H (75-99) mg/dL Troponin I 0.044 H* (0.000-0.034) ng/mL 10/11/18 10/11/18 10/11/18 Range/Units 03:25 03:25 03:25 WBC 17.9 H (3.8-10.6) k/uL RBC 2.44 L (3.80-5.40) m/uL Hgb 7.8 L (11.4-16.0) gm/dL Hct 23.5 L (34.0-46.0) % RDW 18.1 H (11.5-15.5) % Neutrophils # 16.6 H (1.3-7.7) k/uL Lymphocytes # 0.6 L (1.0-4.8) k/uL APTT 45.1 H (22.0-30.0) sec Chloride 115 H (98-107) mmol/L Carbon Dioxide 19 L (22-30) mmol/L BUN 68 H (7-17) mg/dL Creatinine 2.58 H (0.52-1.04) mg/dL Glucose 121 H (74-99) mg/dL POC Glucose (mg/dL) (75-99) mg/dL Troponin I (0.000-0.034) ng/mL 10/11/18 10/11/18 10/11/18 Range/Units 03:48 04:55 06:08 WBC (3.8-10.6) k/uL RBC (3.80-5.40) m/uL Hgb (11.4-16.0) gm/dL Hct (34.0-46.0) % RDW (11.5-15.5) % Neutrophils # (1.3-7.7) k/uL Lymphocytes # (1.0-4.8) k/uL APTT (22.0-30.0) sec Chloride (98-107) mmol/L Carbon Dioxide (22-30) mmol/L BUN (7-17) mg/dL Creatinine (0.52-1.04) mg/dL Glucose (74-99) mg/dL POC Glucose (mg/dL) 134 H 139 H 126 H (75-99) mg/dL Troponin I (0.000-0.034) ng/mL 10/11/18 10/11/18 10/11/18 Range/Units 07:12 07:33 11:43 WBC (3.8-10.6) k/uL RBC (3.80-5.40) m/uL Hgb (11.4-16.0) gm/dL Hct (34.0-46.0) % RDW (11.5-15.5) % Neutrophils # (1.3-7.7) k/uL Lymphocytes # (1.0-4.8) k/uL APTT (22.0-30.0) sec Chloride (98-107) mmol/L Carbon Dioxide (22-30) mmol/L BUN (7-17) mg/dL Creatinine (0.52-1.04) mg/dL Glucose (74-99) mg/dL POC Glucose (mg/dL) 129 H 134 H 116 H (75-99) mg/dL Troponin I (0.000-0.034) ng/mL 10/11/18 Range/Units 12:24 WBC (3.8-10.6) k/uL RBC (3.80-5.40) m/uL Hgb (11.4-16.0) gm/dL Hct (34.0-46.0) % RDW (11.5-15.5) % Neutrophils # (1.3-7.7) k/uL Lymphocytes # (1.0-4.8) k/uL APTT 53.8 H (22.0-30.0) sec Chloride (98-107) mmol/L Carbon Dioxide (22-30) mmol/L BUN (7-17) mg/dL Creatinine (0.52-1.04) mg/dL Glucose (74-99) mg/dL POC Glucose (mg/dL) (75-99) mg/dL Troponin I (0.000-0.034) ng/mL Microbiology - Last 24 Hours (Table) 10/09/18 00:15 Blood Culture - Preliminary Blood No Growth after 48 hours Assessment and Plan (1) Chronic renal failure Current Visit: Yes Status: Acute Code(s): N18.9 - CHRONIC KIDNEY DISEASE, UNSPECIFIED SNOMED Code(s): 73609618 (2) COPD exacerbation Current Visit: Yes Status: Acute Code(s): J44.1 - CHRONIC OBSTRUCTIVE PULMONARY DISEASE W (ACUTE) EXACERBATION SNOMED Code(s): 341823699 (3) Pneumonia Current Visit: Yes Status: Acute Code(s): J18.9 - PNEUMONIA, UNSPECIFIED ORGANISM SNOMED Code(s): 684938297 (4) Peripheral vascular disease Current Visit: Yes Status: Acute Code(s): I73.9 - PERIPHERAL VASCULAR DISEASE, UNSPECIFIED SNOMED Code(s): 496079032 (5) Acute on chronic combined systolic (congestive) and diastolic (congestive) heart failure Current Visit: Yes Status: Acute Code(s): I50.43 - ACUTE ON CHRONIC COMBINED SYSTOLIC AND DIASTOLIC HRT FAIL SNOMED Code(s): 307584722159571 (6) Peripheral vascular disease Current Visit: Yes Status: Acute Code(s): I73.9 - PERIPHERAL VASCULAR DISE ASE, UNSPECIFIED SNOMED Code(s): 654168415 (7) Chest pain Current Visit: Yes Status: Acute Code(s): R07.9 - CHEST PAIN, UNSPECIFIED SNOMED Code(s): 69449676 Plan: Patient had some chest pain yesterday. Cardiac enzymes are elevated but flat. Not suggestive of acute coronary syndrome. We'll monitor her for next 24 hours. If no chest pain, patient could be discharged home and follow up with Dr. Julian. Patient has no recurrence of chest pain, may consider cardiac catheterization
[2018-10-11 17:32] LABS: Glucose,Whole Blood 279 mg/dL (75-99)
--- NOTE | 2018-10-11 19:08 | ECHOF ---
Referral Reason:chest pain, chf MEASUREMENTS -------- HEIGHT: 160.0 cm WEIGHT: 73.5 kg BP: 149/73 IVSd: 1.3 cm (0.6 - 1.1) LVIDd: 4.9 cm (3.9 - 5.3) LVPWd: 1.4 cm (0.6 - 1.1) IVSs: 1.6 cm LVIDs: 3.3 cm LVPWs: 1.3 cm RVIDd: 2.8 cm (< 3.3) LAESV Index (A-L): 41.22 ml/m Ao Diam: 2.5 cm (2.0 - 3.7) LA Diam: 4.1 cm (2.7 - 3.8) AV Cusp: 1.8 cm (1.5 - 2.6) EPSS: 0.7 cm MV E Avelino: 1.64 m/s MV DecT: 182 ms MV A Avelino: 0.35 m/s MV E/A Ratio: 4.73 AR PHT: 157 ms RAP: 20.00 mmHg RVSP: 23.09 mmHg MV EF SLOPE: 50.74 mm/s (70 - 150) MV EXCURSION: 18.74 mm (> 18.000) FINDINGS -------- Sinus rhythm. This was a technically good study. The left ventricular size is normal. There is moderate concentric left ventricular hypertrophy. O verall left ventricular systolic function is mildly impaired with, an EF between 45 - 50 %. Mid lat eral LV wall motion is hypokinetic. The right ventricle is normal in size. LA is severely dilated >40 ml/m2 The right atrial size is normal. Interatrial and interventricular septum intact. The aortic valve is trileaflet and appears structurally normal. Trace amount of aortic regurgitatio n. The mitral valve is normal. Severe mitral regurgitation is present. Mild tricuspid regurgitation present. There is no evidence of pulmonary hypertension. The right v entricular systolic pressure, as measured by Doppler, is 23.09mmHg. Trace/mild (physiologic) pulmonic regurgitation. The aortic root size is normal. The inferior vena cava is dilated with no significant inspiratory collapse which is consistent estima lloyd right atrial pressure of >20 mmHg. There is a small, generalized pericardial effusion present. CONCLUSIONS -------- 1. Sinus rhythm. 2. This was a technically good study. 3. The left ventricular size is normal. 4. There is moderate concentric left ventricular hypertrophy. 5. Overall left ventricular systolic function is mildly impaired with, an EF between 45 - 50 %. 6. Mid lateral LV wall motion is hypokinetic. 7. The right ventricle is normal in size. 8. LA is severely dilated >40 ml/m2 9. The right atrial size is normal. 10. Interatrial and interventricular septum intact. 11. The aortic valve is trileaflet and appears structurally normal. 12. Trace amount of aortic regurgitation. 13. The mitral valve is normal. 14. Severe mitral regurgitation is present. 15. Mild tricuspid regurgitation present. 16. There is no evidence of pulmonary hypertension. 17. The right ventricular systolic pressure, as measured by Doppler, is 23.09mmHg. 18. Trace/mild (physiologic) pulmonic regurgitation. 19. The aortic root size is normal. 20. The inferior vena cava is dilated with no significant inspiratory collapse which is consistent es timated right atrial pressure of >20 mmHg. 21. There is a small, generalized pericardial effusion present. FIGHTER PILOT: Bing Freed RDCS
[2018-10-11] MEDS ORDERED: SENNOSIDES 8.6 MG TAB PO PRN (19:49)
[2018-10-11] MEDS: ATORVASTATIN 80 MG TAB PO SCH (20:49)
[2018-10-11] MEDS: HEPARIN SODIUM,PORCINE 5,000 UNIT/ML 1 ML VIAL SQ SCH (20:50)
[2018-10-11 21:01] LABS: Glucose,Whole Blood 132 mg/dL (75-99)
[2018-10-11] MEDS: METOPROLOL SUCCINATE (ER) 100 MG TAB.ER.24H PO SCH (21:55)
[2018-10-12 00:29] LABS: Glucose,Whole Blood 44 mg/dL (75-99)
[2018-10-12 00:46] LABS: Glucose,Whole Blood 61 mg/dL (75-99)
[2018-10-12 01:06] LABS: Glucose,Whole Blood 102 mg/dL (75-99)
[2018-10-12 02:46] LABS: Glucose,Whole Blood 154 mg/dL (75-99)
[2018-10-12 06:23] LABS: Anisocytosis Slight; HCT 22.7 % (34.0-46.0); HGB 7.5 gm/dL (11.4-16.0); MCH 32.1 pg (25.0-35.0); MCHC 32.9 g/dL (31.0-37.0); MCV 97.7 fL (80.0-100.0); Macrocytosis Slight; Mean Platelet Volume 8.7; Platelet Count 220 k/uL (150-450); RBC 2.33 m/uL (3.80-5.40); RDW 17.5 % (11.5-15.5); WBC 12.4 k/uL (3.8-10.6)
[2018-10-12 06:28] LABS: Magnesium 2.3 mg/dL (1.6-2.3); Potassium 4.3 mmol/L (3.5-5.1)
[2018-10-12 07:28] LABS: Glucose,Whole Blood 111 mg/dL (75-99)
[2018-10-12] MEDS: SYMBICORT 160-4.5 MCG INHALER INHALATION SCH (07:44)
[2018-10-12] MEDS: IPRATROPIUM-ALBUTEROL 3 ML NEB INHALATION SCH ×2 (07:44→11:42)
[2018-10-12 08:22] VITALS: BP 148/63; RESP 16; TEMP 98.4
[2018-10-12] MEDS: INSULIN ASPART (NovoLOG) 100 UNIT/ML VIAL SQ SCH ×2 (08:23→08:34)
[2018-10-12] MEDS: AZITHROMYCIN 500 MG TAB PO SCH (08:35)
[2018-10-12] MEDS: ASPIRIN 325 MG TAB PO SCH (08:35)
[2018-10-12] MEDS: CITALOPRAM HYDROBROMIDE 20 MG TAB PO SCH (08:36)
[2018-10-12] MEDS: FAMOTIDINE 20 MG TAB PO SCH (08:36)
[2018-10-12] MEDS: CLOPIDOGREL 75 MG TAB PO SCH (08:36)
[2018-10-12] MEDS: FUROSEMIDE 20 MG TAB PO SCH (08:37)
[2018-10-12] MEDS: HEPARIN SODIUM,PORCINE 5,000 UNIT/ML 1 ML VIAL SQ SCH (08:37)
[2018-10-12] MEDS: FERROUS SULFATE 325 MG TAB PO SCH (08:37)
[2018-10-12] MEDS: hydrALAZINE HCL 25 MG TAB PO SCH (08:37)
[2018-10-12] MEDS: ISOSORBIDE MONONITRATE ER 60 MG TAB.ER.24H PO SCH (08:37)
[2018-10-12] MEDS: INSULIN DETEMIR (LEVEMIR) 100 UNIT/ML SYR SQ SCH (08:37)
[2018-10-12] MEDS: VARENICLINE 0.5 MG TAB PO SCH (08:38)
[2018-10-12] MEDS: lamoTRIgine 25 MG TAB PO SCH (08:38)
[2018-10-12] MEDS ORDERED: predniSONE 20 MG TAB PO SCH (09:00)
--- NOTE | 2018-10-12 09:49 | P.PN ---
Subjective Progress Note Date: 10/12/18 This is a 48-year-old female was admitted to the hospital with increasing shortness of breath which was felt to be multifactorial including COPD and CHF. Apparently on the , that is yesterday, patient had him some chest pain relieved with nitroglycerin. Her troponin values are mildly elevated but bonnie eared to be flat not consistent with coronary syndrome. This morning patient is stable. There is a question of possible cardiac catheterization. We'll continue to monitor her for next 24 hours. If patient has any recurrence of chest pain, may consider cardiac catheterization. Patient patient is also going to have a repeat echocardiogram. 10/12/2018: This patient has remained stable over the last 24 hours. There is some atypical chest pain but hasn't had any recurrence. She claims that he gets pain when she gets short of breath with activity. She is scheduled to see Dr. Julian in October that patient probably will see him sooner. Patient is being discharged home today. She does have some family history of ischemic heart disease and repeat echocardiogram showed evidence of moderate to severe mitral regurgitation. This is been chronic. No segmental wall motion defects are noted. Patient will see Dr. Julian within a week to discharge. Patient may need further evaluation with cardiac catheterization. Patient is advised strongly to quit smoking. Provide any severe physical activities until seen by Dr. Julian. Patient has any recurrence of chest pain, she will either come back to the hospital or see Dr. Julian as soon as possible Objective - Vital Signs Vital signs: Vital Signs Temp 98.4 F 10/12/18 08:00 Pulse 64 10/12/18 07:55 Resp 16 10/12/18 08:00 BP 148/63 10/12/18 08:00 Pulse Ox 96 10/12/18 04:00 Intake & Output 10/11/18 10/12/18 10/12/18 18:59 06:59 18:59 Intake Total 900 Output Total 900 Balance 0 Intake: Oral 900 Output: Urine 900 Other: Voiding Method Bedside Commode # Voids 4 2 - Exam GENERAL EXAM: Patient is alert and oriented and doesn't appear to be in any acute distress HEENT: Normocephalic. Normal reaction of pupils, equal size, normal range of extraocular motion. No erythema or exudates in the throat. NECK: No masses, no nuchal rigidity. CHEST: No chest wall deformity. LUNGS: Diminished breath sounds with scattered rhonchi HEART: S1 and S2 normal with no audible mumurs or gallops. Regular rhythm, femorals equal on both sides.. ABDOMEN: No hepatosplenomegaly, normal bowel sounds, no guarding or rigidity. SKIN: No rashes CENTRAL NERVOUS SYSTEM: No focal deficits. EXTREMITIES: No cyanosis, clubbing or edema. - Labs CBC & Chem 7: 10/12/18 05:38 10/12/18 05:38 Labs: Abnormal Lab Results - Last 24 Hours (Table) 10/11/18 10/11/18 10/11/18 Range/Units 11:43 12:24 17:29 WBC (3.8-10.6) k/uL RBC (3.80-5.40) m/uL Hgb (11.4-16.0) gm/dL Hct (34.0-46.0) % RDW (11.5-15.5) % APTT 53.8 H (22.0-30.0) sec Chloride (98-107) mmol/L BUN (7-17) mg/dL Creatinine (0.52-1.04) mg/dL Glucose (74-99) mg/dL POC Glucose (mg/dL) 116 H 279 H (75-99) mg/dL 10/11/18 10/12/18 10/12/18 Range/Units 21:00 00:23 00:44 WBC (3.8-10.6) k/uL RBC (3.80-5.40) m/uL Hgb (11.4-16.0) gm/dL Hct (34.0-46.0) % RDW (11.5-15.5) % APTT (22.0-30.0) sec Chloride (98-107) mmol/L BUN (7-17) mg/dL Creatinine (0.52-1.04) mg/dL Glucose (74-99) mg/dL POC Glucose (mg/dL) 132 H 44 L 61 L (75-99) mg/dL 10/12/18 10/12/18 10/12/18 Range/Units 01:05 02:44 05:38 WBC 12.4 H (3.8-10.6) k/uL RBC 2.33 L (3.80-5.40) m/uL Hgb 7.5 L (11.4-16.0) gm/dL Hct 22.7 L (34.0-46.0) % RDW 17.5 H (11.5-15.5) % APTT (22.0-30.0) sec Chloride (98-107) mmol/L BUN (7-17) mg/dL Creatinine (0.52-1.04) mg/dL Glucose (74-99) mg/dL POC Glucose (mg/dL) 102 H 154 H (75-99) mg/dL 10/12/18 10/12/18 Range/Units 05:38 07:26 WBC (3.8-10.6) k/uL RBC (3.80-5.40) m/uL Hgb (11.4-16.0) gm/dL Hct (34.0-46.0) % RDW (11.5-15.5) % APTT (22.0-30.0) sec Chloride 111 H (98-107) mmol/L BUN 69 H (7-17) mg/dL Creatinine 2.60 H (0.52-1.04) mg/dL Glucose 119 H (74-99) mg/dL POC Glucose (mg/dL) 111 H (75-99) mg/dL Microbiology - Last 24 Hours (Table) 10/09/18 00:15 Blood Culture - Preliminary Blood No Growth after 72 hours Assessment and Plan (1) Chronic renal failure Current Visit: Yes Status: Acute Code(s): N18.9 - CHRONIC KIDNEY DISEASE, UNSPECIFIED SNOMED Code(s): 96530206 (2) COPD exacerbation Current Visit: Yes Status: Acute Code(s): J44.1 - CHRONIC OBSTRUCTIVE PULMONARY DISEASE W (ACUTE) EXACERBATION SNOMED Code(s): 381683043 (3) Pneumonia Current Visit: Yes Status: Acute Code(s): J18.9 - PNEUMONIA, UNSPECIFIED ORGANISM SNOMED Code(s): 523497514 (4) Peripheral vascular disease Current Visit: Yes Status: Acute Code(s): I73.9 - PERIPHERAL VASCULAR DISEASE, UNSPECIFIED SNOMED Code(s): 594956830 (5) Acute on chronic combined systolic (congestive) and diastolic (congestive) heart failure Current Visit: Yes Status: Acute Code(s): I50.43 - ACUTE ON CHRONIC COMBINED SYSTOLIC AND DIASTOLIC HRT FAIL SNOMED Code(s): 538140174646877 (6) Peripheral vascular disease Current Visit: Yes Status: Acute Code(s): I73.9 - PERIPHERAL VASCULAR DISEASE, UNSPECIFIED SNOMED Code(s): 673238051 (7) Chest pain Current Visit: Yes Status: Acute Code(s): R07.9 - CHEST PAIN, UNSPECIFIED SNOMED Code(s): 70761278 Plan: Patient is clinically stable at this time. Hasn't had any chest pain for the last 24 hours. Echocardiogram showed normal LV function with chronic mitral regurgitation. Patient will be seen by Dr. Julian within next one week. Patient may need further evaluation by cardiac catheterization on the [facility] as an outpatient.
--- NOTE | 2018-10-12 10:47 | P.DS ---
Providers Date of admission: 10/08/18 23:51 Expected date of discharge: 10/12/18 Attending physician: Vince Pyle MD Consults: 10/09/18 00:05 Consult Physician Stat Consulting Provider: Raz Jaquez Consult Reason/Comments: CHF exacerbation, COPD exacerbation, pneumonia Do you want consulting provider notified?: Yes Consult Physician Stat Consulting Provider: Joanne Crain Consult Reason/Comments: CHF exacerbation, COPD exacerbation, pneumonia Do you want consulting provider notified?: Yes Primary care physician: Tamika Pratt MD Hospital Course: Discharge diagnoses Acute COPD exacerbation Acute on chronic combined systolic and diastolic CHF exacerbation Pneumonia Atypical chest pain Type 2 diabetes with hyperglycemia Essential hypertension Hyperlipidemia Chronic anemia Tobaccoism Patient will 48-year-old female with a history of systolic congestive heart failure with last known ejection fraction 45-50%, chronic kidney disease stage III, chronic anemia, diabetes mellitus type 2 insulin requiring, and COPD who presented to the hospital with a 3 day history of exertional dyspnea and shortness of breath. In the ER she underwent an extensive evaluation and was subsequently admitted for worsening dyspnea of multifactorial etiology secondary to pneumonia superimposed on a acute COPD and acute on chronic combined systolic and diastolic CHF exacerbation. Her vital signs were within normal limits. Laboratory analysis was consistent with her known anemia and hemoglobin of 8.5, creatinine was 2.19 near her baseline, glucose was elevated at 202, and BNP significantly elevated at 10,200. Chest x-ray showed possible bilateral infiltrates. She was started on Zithromax, Rocephin, IV steroids for possible COPD exacerbation, and IV Lasix for CHF exacerbation. Arrangements are made for admission. By the morning after admission she felt significantly improved. She was transitioned to oral lasix and oral prednisone. Patient had an episode of chest pain on 10/10. She was noted to have an elevated troponin at 0.044 and subsequently normalized, and her chest pain improved with the use of nitro. She was initially placed on nitro patch and heparin gtt. 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 Julian at discharge in clinic within a week to evaluate for possible cardiac catheterization. Patient was strongly advised to quit smoking. She was subsequently discharged home in stable condition and instructed to follow-up with her PCP and to keep her a ppointment with Dr. Julian 10/20/18 @4:30 pm. This discharge process took approximately 35 minutes Focused exam Cardiovascular: Regular rate and rhythm no murmurs rubs or gallops Respiratory: Diminished in the bases clear to auscultation bilaterally Patient Condition at Discharge: Fair Plan - Discharge Summary New Discharge Prescriptions: No Action Clopidogrel Bisulfate [Plavix] 75 mg PO DAILY Loratadine [Claritin] 10 mg PO DAILY lamoTRIgine [LaMICtal] 25 mg PO BID Ferrous Sulfate [Iron (65 MG Elemental)] 325 mg PO DAILY Ergocalciferol (Vitamin D2) [Drisdol] 50,000 unit PO Q14D Citalopram Hydrobromide [CeleXA] 20 mg PO DAILY Atorvastatin [Lipitor] 80 mg PO HS Albuterol Inhaler [Ventolin Hfa Inhaler] 1 - 2 puff INHALATION RT-Q6H PRN PRN Reason: Shortness Of Breath amLODIPine [Norvasc] 10 mg PO DAILY Famotidine [Pepcid] 40 mg PO DAILY Isosorbide Mononitrate ER [Imdur] 60 mg PO DAILY #30 tab.er.24h Albuterol Nebulized [Ventolin Nebulized] 2.5 mg INHALATION RT-Q6H PRN PRN Reason: Shortness Of Breath hydrALAZINE HCL 25 mg PO BID Varenicline Tartrate [Chantix Starter Pack] 0.5 mg PO BID Insulin Glargine,Hum.rec.anlog [Basaglar Kwikpen U-100] 22 units SQ DAILY@1400 Furosemide [Lasix] 20 mg PO BID #60 tab Furosemide [Lasix] 40 mg PO BID #60 tablet Allopurinol [Zyloprim] 100 mg PO DAILY Metoprolol Succinate [Toprol XL] 100 mg PO HS glipiZIDE [Glucotrol] 10 mg PO AC-BID Umeclidinium [place] [Incruse Ellipta] 62.5 mcg INHALATION RT-HS Discharge Medication List Clopidogrel Bisulfate [Plavix] 75 mg PO DAILY 01/21/15 [History] Ergocalciferol (Vitamin D2) [Drisdol] 50,000 unit PO Q14D 01/21/15 [History] Ferrous Sulfate [Iron (65 MG Elemental)] 325 mg PO DAILY 01/21/15 [History] Loratadine [Claritin] 10 mg PO DAILY 01/21/15 [History] lamoTRIgine [LaMICtal] 25 mg PO BID 01/21/15 [History] Albuterol Inhaler [Ventolin Hfa Inhaler] 1 - 2 puff INHALATION RT-Q6H PRN 06/30/17 [History] Atorvastatin [Lipitor] 80 mg PO HS 06/30/17 [History] Citalopram Hydrobromide [CeleXA] 20 mg PO DAILY 06/30/17 [History] Famotidine [Pepcid] 40 mg PO DAILY 06/18/18 [History] amLODIPine [Norvasc] 10 mg PO DAILY 06/18/18 [History] Isosorbide Mononitrate ER [Imdur] 60 mg PO DAILY #30 tab.er.24h 06/22/18 [Rx] Albuterol Nebulized [Ventolin Nebulized] 2.5 mg INHALATION RT-Q6H PRN 07/02/18 [History] Varenicline Tartrate [Chantix Starter Pack] 0.5 mg PO BID 07/02/18 [History] hydrALAZINE HCL 25 mg PO BID 07/02/18 [History] Insulin Glargine,Hum.rec.anlog [Basaglar Kwikpen U-100] 22 units SQ DAILY@1400 07/03/18 [History] Furosemide [Lasix] 20 mg PO BID #60 tab 07/05/18 [Rx] Furosemide [Lasix] 40 mg PO BID #60 tablet 07/05/18 [Rx] Allopurinol [Zyloprim] 100 mg PO DAILY 08/30/18 [History] Metoprolol Succinate [Toprol XL] 100 mg PO HS 10/08/18 [History] Umeclidinium [place] [Incruse Ellipta] 62.5 mcg INHALATION RT-HS 10/08/18 [History] glipiZIDE [Glucotrol] 10 mg PO AC-BID 10/08/18 [History] Follow up Appointment(s)/Referral(s): Ananda Becerril MD [STAFF PHYSICIAN] - 10/20/18 4:30 pm Tamika Pratt MD [Primary Care Provider] - 1-2 days
[2018-10-12 11:55] VITALS: PULSE 66
[2018-10-12] MEDS: amLODIPine 10 MG TAB PO SCH (12:38)
--- NOTE | 2018-10-12 14:24 | P.PN ---
Subjective Progress Note Date: 10/12/18 On today's evaluation of 10/10/2018 the patient is feeling better and less short of breath compared to yesterday. The patient is known to have mild COPD with an FEV1 ranging between 76 and 81% of predicted. The patient also has hypertension, diabetes mellitus type 2, history of alcoholism, chronic renal failure and history of CHF. The patient came in with increased shortness of breath. The patient will also having some nonspecific chest pain along with the cough and. No fever. No chills. No significant pneumonias. No nausea. No vomiting. No altered mentation. Overall condition is improving. Smoking cessation counseling was done. The patient has been maintained on Incruse on outpatient basis regarding her COPD. The white cell count is elevated today at 20. This needs to be monitored. Consider steroid effect. Creatinine is at 2.5 noted the patient also has a component of chronic kidney disease. The patient also developed a component of steroid-induced hyperglycemia. Blood sugars are quite elevated this morning. The patient is currently on prednisone burst taper on IV Solu Medrol has been discontinued. She was given Chantix for smoking cessation. She is on oral Zithromax. She is on bronchodilators [id number]. On 10/11/2018 since he is doing very well. The patient has no specific complaints pH is less short of breath compared to yesterday. No chest pain. No nausea or vomiting. Troponins were minimally elevated and the patient was started on IV heparin and cardiology is following that the case. The patient is on Zithromax 5 mg by mouth daily for suspected pneumonia. The patient on DuoNeb about treatments around the clock. The patient is receiving a prednisone burst taper starting with 20 mg and the patient was given Chantix for smoking cessati on. Noted the patient also has a moderate to severe mitral regurgitation and a troponin leak and she will need further cardiac evaluation including possibly a JOSEP and possibly a catheterization at a later stage. Overall condition stable. No altered mentation. Tolerating her diet. On 10/12/2018, since he has no specific complaints. Nevertheless, she is a bit frustrated with all the medical problems that she is going through. In summary the patient has a mild COPD. She came in for COPD and CHF exacerbation. I think the current presentation was more consistent with CHF. Further investig ation revealed that she also has a mitral valve regurgitation. Note that she has extensive atherosclerotic disease with peripheral vascular disease and carotid artery stenosis. Is very much likely the patient has underlying coronary artery disease. She is going to follow with cardiology on outpatient basis. There is a high suspicion for an underlying CAD. Nevertheless, an immediate cardiac catheterization is not possible as the patient has chronic kidney disease stage III in the creatinine today is at 2.6. She is a long- standing diabetic and has been poorly controlled. She is currently on Lasix 60 mg by mouth twice a day. She has complete a course of Zithromax 5 mg by mouth daily. She is completing a course of prednisone burst taper. Smoking cessation counseling was done and the patient was given Chantix. The plan is to discharge this patient home today. Objective - Vital Signs Vital signs: Vital Signs Temp 98.4 F 10/12/18 08:00 Pulse 66 10/12/18 11:54 Resp 16 10/12/18 08:00 BP 148/63 10/12/18 08:00 Pulse Ox 96 10/12/18 04:00 Intake & Output 10/11/18 10/12/18 10/12/18 18:59 06:59 18:59 Intake Total 900 Output Total 900 Balance 0 Intake: Oral 900 Output: Urine 900 Other: Voiding Method Bedside Commode Bedside Commode # Voids 4 2 - Exam General: non toxic, no distress, appears older than stated age Derm: warm, dry Head: atraumatic, normocephalic, symmetric Eyes: EOMI, no lid lag, anicteric sclera Mouth: no lip lesion, mucus membranes moist Cardiovascular: S1S2 reg, no murmur, positive posterior tibial pulse bilateral, Lungs: Faint crackles right base , no accessory muscle use Abdominal: soft, nontender to palpation, no guarding, no appreciable organomeg jerica Ext: no gross muscle atrophy, no edema, no contractures Neuro: CN II-XI grossly intact, no focal neuro deficits Psych: Alert, oriented, appropriate affect - Labs CBC & Chem 7: 10/12/18 05:38 10/12/18 05:38 Labs: Abnormal Lab Results - Last 24 Hours (Table) 10/11/18 10/11/18 10/12/18 Range/Units 17:29 21:00 00:23 WBC (3.8-10.6) k/uL RBC (3.80-5.40) m/uL Hgb (11.4-16.0) gm/dL Hct (34.0-46.0) % RDW (11.5-15.5) % Chloride (98-107) mmol/L BUN (7-17) mg/dL Creatinine (0.52-1.04) mg/dL Glucose (74-99) mg/dL POC Glucose (mg/dL) 279 H 132 H 44 L (75-99) mg/dL 10/12/18 10/12/18 10/12/18 Range/Units 00:44 01:05 02:44 WBC (3.8-10.6) k/uL RBC (3.80-5.40) m/uL Hgb (11.4-16.0) gm/dL Hct (34.0-46.0) % RDW (11.5-15.5) % Chloride (98-107) mmol/L BUN (7-17) mg/dL Creatinine (0.52-1.04) mg/dL Glucose (74-99) mg/dL POC Glucose (mg/dL) 61 L 102 H 154 H (75-99) mg/dL 10/12/18 10/12/18 10/12/18 Range/Units 05:38 05:38 07:26 WBC 12.4 H (3.8-10.6) k/uL RBC 2.33 L (3.80-5.40) m/uL Hgb 7.5 L (11.4-16.0) gm/dL Hct 22.7 L (34.0-46.0) % RDW 17.5 H (11.5-15.5) % Chloride 111 H (98-107) mmol/L BUN 69 H (7-17) mg/dL Creatinine 2.60 H (0.52-1.04) mg/dL Glucose 119 H (74-99) mg/dL POC Glucose (mg/dL) 111 H (75-99) mg/dL Microbiology - Last 24 Hours (Table) 10/09/18 00:15 Blood Culture - Preliminary Blood No Growth after 72 hours Assessment and Plan Plan: 1 acute COPD exacerbation with secondary shortness of breath. The patient is approved considerably and the patient was taken off the IV Solu-Medrol and the patient on a prednisone burst taper. Based on FEV1 is in order of 76-81% of predicted. The acute exacerbation was probably related to pneumonia as the patient developed some bilateral pulmonary infiltrates in lung bases bilaterally right more than left. There was also some blunting of the right costophrenic angle. Consider also a component of CHF nontender the patient's BNP level was quite elevated time of admission. Clinically the patient is improved and the patient is recovered from acute COPD and CHF exacerbation. Nevertheless, there is a possibility of underlying coronary artery disease specialist has history of extensive atherosclerosis and she may have an underlying severe valvular heart disease and the patient regarding of showed a severe component of mitral regurgitation. Cardiology is aware. 2 chronic systolic heart failure with an ejection fraction of 45% and moderate to severe mitral regurgitation 3 shortness of breath secondary to above, improved 4 acute on chronic hypoxic respiratory failure, improved and the patient's oxygenation is normalized and the patient does not qualify for oxygen for now. Hemoglobin is somewhat anxious and 5 hypertension 6 hyperlipidemia 7 peripheral vascular disease 8 chronic kidney disease , stage IIIcreatinine of 2.6 9 diabetes mellitus with steroid-induced hyperglycemia 10 chronic anemia, likely anemia of chronic disease, the hemoglobin is at 7.5 11 acute leukocytosis, consider steroid-induced, improving and the white cell count is down to 12 Plan Complete a prednisone burst taper and Zithromax on outpatient basis. Continue oral Lasix 60 mg by mouth twice a day. Rest of the cardiac medication will be kept unchanged. Monitor renal function. Monitor the blood sugar. Continue insulin. Current blood sugar control. Smoking cessation counseling was done. Chantix was offered. We'll follow with cardiology. We'll follow-up will with pulmonary. Very much likely the patient will need a cardiac catheterization at a later stage to characterize her underlying cardiac disease in addition to a JOSEP. She seems to be interested in following up with Dr. Julian.
== END 2018-10-12 14:36 | disposition home or self-care (01) | DRG 291 ==
LOC: EC 19:23 → 3SCARD 23:51 → 4SSUR 10-09 15:32 → 2SICU 10-10 19:12
PROVIDERS: ADMIT Internal Medicine; ATTEND Internal Medicine
DX: I13.0 Hypertensive heart and chronic kidney disease with heart failure and stage 1 through stage 4 chronic kidney disease, or unspecified chronic kidney disease (principal); I50.43 Acute on chronic combined systolic (congestive) and diastolic (congestive) heart failure; J18.9 Pneumonia, unspecified organism; J96.21 Acute and chronic respiratory failure with hypoxia; J44.0 Chronic obstructive pulmonary disease with (acute) lower respiratory infection; J44.1 Chronic obstructive pulmonary disease with (acute) exacerbation; D64.9 Anemia, unspecified; E11.22 Type 2 diabetes mellitus with diabetic chronic kidney disease; E11.51 Type 2 diabetes mellitus with diabetic peripheral angiopathy without gangrene; E11.65 Type 2 diabetes mellitus with hyperglycemia; E78.5 Hyperlipidemia, unspecified; Z71.6 Tobacco abuse counseling; F17.210 Nicotine dependence, cigarettes, uncomplicated; F32.9 Major depressive disorder, single episode, unspecified; F41.9 Anxiety disorder, unspecified; I25.110 Atherosclerotic heart disease of native coronary artery with unstable angina pectoris; I34.0 Nonrheumatic mitral (valve) insufficiency; I65.29 Occlusion and stenosis of unspecified carotid artery; N18.3 Chronic kidney disease, stage 3 (moderate); T38.0X5A Adverse effect of glucocorticoids and synthetic analogues, initial encounter; D72.829 Elevated white blood cell count, unspecified; Z79.02 Long term (current) use of antithrombotics/antiplatelets; Z79.4 Long term (current) use of insulin; Z79.899 Other long term (current) drug therapy; Z80.3 Family history of malignant neoplasm of breast; Z82.3 Family history of stroke; Z82.49 Family history of ischemic heart disease and other diseases of the circulatory system; Z83.3 Family history of diabetes mellitus; Z85.6 Personal history of leukemia; Z86.73 Personal history of transient ischemic attack (TIA), and cerebral infarction without residual deficits; R74.8 Abnormal levels of other serum enzymes; I65.23 Occlusion and stenosis of bilateral carotid arteries; Z88.0 Allergy status to penicillin; Z91.030 Bee allergy status
CPT/HCPCS: 36415; 71046; 78582; 80048; 80053; 81001; 81025; 82009; 82728; 83036; 83540; 83550; 83605; 83735; 83880; 84100; 84484; 85025; 85027; 85379; 85610; 85730; 87040; 87086; 93005; 93306; 94640; 94760; 96361; 96365; 96366; 96375; 99285

== ENCOUNTER 2018-10-25 14:00 | Inpatient (IN) | payer OTHER ==
[2018-10-25] MEDS ORDERED: IBUPROFEN 600 MG TAB PO STA (14:39)
[2018-10-25] MEDS ORDERED: PIPERACILLIN-TAZOBACTAM 3.375 GM in SODIUM CHLORIDE 0.9% 100 ML IVPB STA (14:39)
[2018-10-25] MEDS ORDERED: ACETAMINOPHEN TAB 500 MG TAB PO STA (14:39)
[2018-10-25] MEDS ORDERED: IPRATROPIUM-ALBUTEROL 3 ML NEB INHALATION STA (14:53)
--- NOTE | 2018-10-25 14:53 | ED ---
General Adult HPI - General Chief complaint: Shortness of Breath Stated complaint: COPD Time Seen by Provider: 10/25/18 14:00 Source: patient, RN notes reviewed Mode of arrival: ambulatory Limitations: no limitations - History of Present Illness Initial comments: This is a 48-year-old female presents emergency Department complaining of fever cough and shortness of breath. Patient has a past medical history significant for multiple incidences of pneumonia since being here patient also is a diabetic and is on dialysis. Patient states the symptoms started a few days ago and getting worse. Patient denies any chest pain or palpitations. Patient denies any abdominal pain patient denies nausea vomiting diarrhea per patient denies headache patient denies numbness weakness. Patient denies lightheadedness dizziness or near syncopal episode. Patient states she saw Dr. Becerril today and he wanted her to come to the emergency department. 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 - Related Data Home Medications Medication Instructions Recorded Confirmed Clopidogrel Bisulfate [Plavix] 75 mg PO DAILY 01/21/15 10/25/18 Ergocalciferol (Vitamin D2) 50,000 unit PO Q14D 01/21/15 10/25/18 [Drisdol] Ferrous Sulfate [Iron (65 MG 325 mg PO DAILY 01/21/15 10/25/18 Elemental)] Loratadine [Claritin] 10 mg PO DAILY 01/21/15 10/25/18 lamoTRIgine [LaMICtal] 25 mg PO BID 01/21/15 10/25/18 Albuterol Inhaler [Ventolin Hfa 1 - 2 puff INHALATION RT-Q6H PRN 06/30/17 10/25/18 Inhaler] Atorvastatin [Lipitor] 80 mg PO HS 06/30/17 10/25/18 Citalopram Hydrobromide [CeleXA] 20 mg PO DAILY 06/30/17 10/25/18 Famotidine [Pepcid] 40 mg PO DAILY 06/18/18 10/25/18 amLODIPine [Norvasc] 10 mg PO DAILY 06/18/18 10/25/18 Albuterol Nebulized [Ventolin 2.5 mg INHALATION RT-Q6H PRN 07/02/18 10/25/18 Nebulized] hydrALAZINE HCL 25 mg PO BID 07/02/18 10/25/18 Insulin Glargine,Hum.rec.anlog 22 units SQ DAILY@1400 07/03/18 10/25/18 [Basaglar Kwikpen U-100] Allopurinol [Zyloprim] 100 mg PO DAILY 08/30/18 10/25/18 Metoprolol Succinate [Toprol XL] 100 mg PO HS 10/08/18 10/25/18 Umeclidinium [place] [Incruse 62.5 mcg INHALATION RT-HS 10/08/18 10/25/18 Ellipta] glipiZIDE [Glucotrol] 10 mg PO AC-BID 10/08/18 10/25/18 Varenicline [Chantix Continuing 1 mg PO BID 10/25/18 10/25/18 Pack] Previous Rx's Medication Instructions Recorded Isosorbide Mononitrate ER [Imdur] 60 mg PO DAILY #30 tab.er.24h 06/22/18 Furosemide [Lasix] 20 mg PO BID #60 tab 07/05/18 Furosemide [Lasix] 40 mg PO BID #60 tablet 07/05/18 Allergies Allergy/AdvReac Type Severity Reaction Status Date / Time bee venom protein (honey bee) Allergy Rash/Hives Verified 10/25/18 14:03 Penicillins Allergy Rash/Hives Verified 10/25/18 14:03 Review of Systems ROS Statement: Those systems with pertinent positive or pertinent negative responses have been documented in the HPI. ROS Other: All systems not noted in ROS Statement are negative. Past Medical History Past Medical History: Cancer, Heart Failure, COPD, CVA/TIA, Diabetes Mellitus, Hyperlipidemia, Hypertension, Renal Disease, Vascular Disorder Additional Past Medical History / Comment(s): CHF, valvular heart disease with MR, peripheral vascular disease, hypertension, hyperlipidemia, COPD, diabetes mellitusII. CML cancer. 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 PAST [employer] HISTORY: She has no history of STDs. History of Any Multi-Drug Resistant Organisms: None Reported Past Surgical History: Appendectomy, Bowel Resection, Orthopedic Surgery, Tubal Ligation Additional Past Surgical History / Comment(s): Hx of colostomy and reversal,rotator cuff repair on Left,hx of bifem bypass. Colonoscopy 2012 Past Anesthesia/Blood Transfusion Reactions: No Reported Reaction Past Psychological History: Anxiety, Depression Smoking Status: Former smoker Past Alcohol Use History: None Reported Past Drug Use History: Marijuana - Past Family History Mother Family Medical History: Congestive Heart Failure (CHF), Diabetes Mellitus Brother(s) Additional Family Medical History / Comment(s): CABG Sister(s) Family Medical History: CVA/TIA Additional Family Medical History / Comment(s): Maternal aunt had breast cancer. General Exam - General Exam Comments Initial Comments: GENERAL: Patient is well-developed and well-nourished. Patient is nontoxic and well- hydrated and is in mild distress. ENT: Neck is soft and supple. No significant lymphadenopathy is noted. Oropharynx is clear. Moist mucous membranes. Neck has full range of motion without eliciting any pain. EYES: The sclera were anicteric and conjunctiva were pink and moist. Extraocular movements were intact and pupils were equal round and reactive to light. Eyelids were unremarkable. PULMONARY: Crackles right base and x-ray wheezing throughout CARDIOVASCULAR: There is a regular rate and rhythm without any murmurs gallops or rubs. ABDOMEN: Soft and nontender with normal bowel sounds. No palpable organomegaly was noted. There is no palpable pulsatile mass. SKIN: Skin is clear with no lesions or rashes and otherwise unremarkable. NEUROLOGIC: Patient is alert and oriented x3. Cranial nerves II through XII are grossly intact. Motor and sensory are also intact. Normal speech, volume and content. Symmetrical smile. MUSCULOSKELETAL: Normal extremities with adequate strength and full range of motion. No lower extremity swelling or edema. No calf tenderness. LYMPHATICS: No significant lymphadenopathy is noted PSYCHIATRIC: Normal psychiatric evaluation. Limitations: no limitations Course Vital Signs 10/25/18 10/25/18 10/25/18 14:01 15:05 15:30 Temperature 102.4 F H Pulse Rate 93 87 Respiratory 18 24 16 Rate Blood Pressure 145/67 O2 Sat by Pulse 94 L Oximetry 10/25/18 10/25/18 15:41 15:47 Temperature Pulse Rate 83 78 Respiratory 16 16 Rate Blood Pressure O2 Sat by Pulse Oximetry Medical Decision Making - Medical Decision Making EKG shows normal sinus rhythm at 87 bpm [place] interval is 172 QRS is 92 QT interval 400 QTC is 41 per patient's EKG shows no ST segment elevation or depression or T wave abnormalities are noted. - Lab Data Result diagrams: 10/25/18 15:21 10/25/18 15:21 Lab Results 10/25/18 10/25/18 10/25/18 Range/Units 15:21 15:21 15:21 WBC 12.3 H (3.8-10.6) k/uL RBC 2.34 L (3.80-5.40) m/uL Hgb 7.4 L (11.4-16.0) gm/dL Hct 22.8 L (34.0-46.0) % MCV 97.4 (80.0-100.0) fL MCH 31.7 (25.0-35.0) pg MCHC 32.5 (31.0-37.0) g/dL RDW 16.5 H (11.5-15.5) % Plt Count 183 (150-450) k/uL Neutrophils % 93 % Lymphocytes % 2 % Monocytes % 3 % Eosinophils % 2 % Basophils % 0 % Neutrophils # 11.4 H (1.3-7.7) k/uL Lymphocytes # 0.2 L (1.0-4.8) k/uL Monocytes # 0.4 (0-1.0) k/uL Eosinophils # 0.2 (0-0.7) k/uL Basophils # 0.0 (0-0.2) k/uL Anisocytosis Slight Macrocytosis Slight PT (9.0-12.0) sec INR (<1.2) APTT (22.0-30.0) sec Sodium 138 (137-145) mmol/L Potassium 3.8 (3.5-5.1) mmol/L Chloride 106 (98-107) mmol/L Carbon Dioxide 20 L (22-30) mmol/L Anion Gap 12 mmol/L BUN 54 H (7-17) mg/dL Creatinine 2.42 H (0.52-1.04) mg/dL Est GFR (CKD-EPI)AfAm 26 (>60 ml/min/1.73 sqM) Est GFR (CKD-EPI)NonAf 23 (>60 ml/min/1.73 sqM) Glucose 291 H (74-99) mg/dL Plasma Lactic Acid Tres 1.4 (0.7-2.0) mmol/L Calcium 8.3 L (8.4-10.2) mg/dL Total Bilirubin 0.5 (0.2-1.3) mg/dL AST 26 (14-36) U/L ALT 50 (9-52) U/L Alkaline Phosphatase 108 (38-126) U/L Total Protein 5.4 L (6.3-8.2) g/dL Albumin 3.0 L (3.5-5.0) g/dL Urine Color Urine Appearance (Clear) Urine pH (5.0-8.0) Ur Specific [place] (1.001-1.035) Urine Protein (Negative) Urine Glucose (UA) (Negative) Urine Ketones (Negative) Urine Blood (Negative) Urine Nitrite (Negative) Urine Bilirubin (Negative) Urine Urobilinogen (<2.0) mg/dL Ur Leukocyte Esterase (Negative) Urine RBC (0-5) /hpf Urine WBC (0-5) /hpf Ur Squamous Epith Cells (0-4) /hpf Urine Bacteria (None) /hpf Hyaline Casts (0-2) /lpf Urine Mucus (None) /hpf 10/25/18 10/25/18 Range/Units 15:21 15:21 WBC (3.8-10.6) k/uL RBC (3.80-5.40) m/uL Hgb (11.4-16.0) gm/dL Hct (34.0-46.0) % MCV (80.0-100.0) fL MCH (25.0-35.0) pg MCHC (31.0-37.0) g/dL RDW (11.5-15.5) % Plt Count (150-450) k/uL Neutrophils % % Lymphocytes % % Monocytes % % Eosinophils % % Basophils % % Neutrophils # (1.3-7.7) k/uL Lymphocytes # (1.0-4.8) k/uL Monocytes # (0-1.0) k/uL Eosinophils # (0-0.7) k/uL Basophils # (0-0.2) k/uL Anisocytosis Macrocytosis PT 10.8 (9.0-12.0) sec INR 1.0 (<1.2) APTT 26.0 (22.0-30.0) sec Sodium (137-145) mmol/L Potassium (3.5-5.1) mmol/L Chloride (98-107) mmol/L Carbon Dioxide (22-30) mmol/L Anion Gap mmol/L BUN (7-17) mg/dL Creatinine (0.52-1.04) mg/dL Est GFR (CKD-EPI)AfAm (>60 ml/min/1.73 sqM) Est GFR (CKD-EPI)NonAf (>60 ml/min/1.73 sqM) Glucose (74-99) mg/dL Plasma Lactic Acid Tres (0.7-2.0) mmol/L Calcium (8.4-10.2) mg/dL Total Bilirubin (0.2-1.3) mg/dL AST (14-36) U/L ALT (9-52) U/L Alkaline Phosphatase (38-126) U/L Total Protein (6.3-8.2) g/dL Albumin (3.5-5.0) g/dL Urine Color Light Yellow Urine Appearance Cloudy H (Clear) Urine pH 5.5 (5.0-8.0) Ur Specific [place] 1.008 (1.001-1.035) Urine Protein 2+ H (Negative) Urine Glucose (UA) Negative (Negative) Urine Ketones Negative (Negative) Urine Blood Trace H (Negative) Urine Nitrite Negative (Negative) Urine Bilirubin Negative (Negative) Urine Urobilinogen <2.0 (<2.0) mg/dL Ur Leukocyte Esterase Negative (Negative) Urine RBC 4 (0-5) /hpf Urine WBC 3 (0-5) /hpf Ur Squamous Epith Cells 2 (0-4) /hpf Urine Bacteria Rare H (None) /hpf Hyaline Casts 3 H (0-2) /lpf Urine Mucus Rare H (None) /hpf Disposition Clinical Impression: Pneumonia Disposition: ADMITTED IP TO THIS [facility] Referrals: Tamika Pratt MD [Primary Care Provider] - 1-2 days Time of Disposition: 16:28
[2018-10-25 15:39] LABS: Anisocytosis Slight; Basophils % (A) 0 %; Eosinophils # (A) 0.2 k/uL (0-0.7); Eosinophils % (A) 2 %; HCT 22.8 % (34.0-46.0); HGB 7.4 gm/dL (11.4-16.0); Lymphocytes # (A) 0.2 k/uL (1.0-4.8); Lymphocytes % (A) 2 %; MCH 31.7 pg (25.0-35.0); MCHC 32.5 g/dL (31.0-37.0); MCV 97.4 fL (80.0-100.0); Macrocytosis Slight; Mean Platelet Volume 8.8; Monocytes # (A) 0.4 k/uL (0-1.0); Monocytes % (A) 3 %; Neutrophils # (A) 11.4 k/uL (1.3-7.7); Neutrophils % (A) 93 %; Platelet Count 183 k/uL (150-450); RBC 2.34 m/uL (3.80-5.40); RDW 16.5 % (11.5-15.5); WBC 12.3 k/uL (3.8-10.6)
[2018-10-25 15:50] LABS: Calcium 8.3 mg/dL (8.4-10.2); Potassium 3.8 mmol/L (3.5-5.1); Total Bilirubin 0.5 mg/dL (0.2-1.3); Total Protein 5.4 g/dL (6.3-8.2)
[2018-10-25 15:51] LABS: Prothrombin Time 10.8 sec (9.0-12.0)
[2018-10-25 15:56] LABS: Appearance,Urine Cloudy (Clear); Bacteria,Urine Rare /hpf; Bilirubin,Urine Negative (Negative); Blood,Urine Trace (Negative); Color,Urine Light Yellow; Glucose,Urine (UA) Negative (Negative); Hyaline Casts,Urine 3 /lpf (0-2); Ketones,Urine Negative (Negative); Leukocyte Esterase,Urine Negative (Negative); Mucus,Urine Rare /hpf; Nitrite,Urine Negative (Negative); PH, Urine 5.5 (5.0-8.0); Protein,Urine 2+ (Negative); RBC,Urine 4 /hpf (0-5); Specific Gravity,Urine 1.008 (1.001-1.035); Squamous Epithelial Cell,Urine 2 /hpf (0-4); Urobilinogen,Urine <2.0 mg/dL (<2.0); WBC,Urine 3 /hpf (0-5)
--- NOTE | 2018-10-25 15:57 | XR ---
EXAMINATION TYPE: XR chest 2V DATE OF EXAM: 10/25/2018 COMPARISON: 10/11/2018 HISTORY: Chest pain TECHNIQUE: Frontal and lateral views of the chest are obtained. FINDINGS: Interval infiltrate right lower lobe. Correlate for pneumonia. No evidence for pneumothorax. No pleural effusion. The cardiac silhouette size is within normal limits. The osseous structures are grossly intact. IMPRESSION: 1. Interval infiltrate right lower lobe. Correlate for pneumonia.
[2018-10-25] MEDS ORDERED: LEVOFLOXACIN 750MG-D5W PMX 750 MG in DEXTROSE/WATER 1 150ML.BAG IVPB STA (16:28)
[2018-10-25] MEDS ORDERED: PNEUMONIA PROTOCOL UTILIZED 1 EACH MISC PO PRN (16:28)
[2018-10-25 17:14] LABS: Glucose,Whole Blood 321 mg/dL (75-99)
[2018-10-25 18:10] LABS: Glucose,Whole Blood 288 mg/dL (75-99)
[2018-10-25] MEDS: INSULIN ASPART (NovoLOG) 100 UNIT/ML VIAL SQ SCH (18:33)
[2018-10-25] MEDS ORDERED: NALOXONE 0.4 MG/ML 1 ML VIAL IV PRN (18:52)
--- NOTE | 2018-10-25 20:10 | P.HPIM ---
History of Present Illness H&P Date: 10/25/18 Chief Complaint: fevers Patient is a 48-year-old female with a past medical history of systolic congestive heart failure with left ventricular ejection fraction 45-50 %, chronic kidney disease stage IV, chronic anemia, diabetes, and COPD who presented to the hospital with complaints of fever and shortness of breath. In the ER she underwent an extensive evaluation. On arrival she was found to have a fever of 102.4. Initial laboratory analysis showed a white blood cell count of 12.3, hemoglobin 7.4 which is chronic for her, BUN 54, and creatinine 2.4. He was also found to be hyperglycemic with a glucose of 291. Urinalysis and influenza negative. Chest x-ray shows right lower lobe pneumonia. She was started on IV fluids, Zosyn, and Levaquin. Arrangements were made for admission. Patient seen and examined at bedside in the emergency department. She reports that she began having some worsening shortness of breath and cough approximately 4 days ago. She reports that her cough is productive of yellow colored sputum, it is associated with postnasal drip, runny nose, and sore throat. She does not report an increase in her wheezing. She reports increased shortness of breath when exerting herself or when lying flat at night. She also reports worsening lower extremity edema for approximately the last week. Today she had some nausea and dry heaving and she was having so much postnasal drip. She also reports generalized weakness and fatigue. She is being actively worked up by Dr. Becerril. She reports that she's been having intermittent chest pain for several months. She had a few episodes over the weekend. She describes as left-sided chest pain without radiation. It is associated with heart palpitations as well as a warm feeling. She does have some shortness of breath at baseline and is difficult to distinguish if she has increased shortness of breath. She reports that Dr. Becerril has been working on getting her heart cath. He has been attempting to coordinate with Dr. Montelongo due to her chronic renal disease. Review of Systems Pertinent positives and negatives as discussed in HPI, a complete review of systems was performed and all other systems are negative. Past Medical History Past Medical History: Cancer, Heart Failure, COPD, CVA/TIA, Diabetes Mellitus, Hyperlipidemia, Hypertension, Renal Disease, Vascular Disorder Additional Past Medical History / Comment(s): CHF, valvular heart disease with MR, peripheral vascular disease, hypertension, hyperlipidemia, COPD, diabetes mellitus II. CML. 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 History of Any Multi-Drug Resistant Organisms: None Reported Past Surgical History: Appendectomy, Bowel Resection, Orthopedic Surgery, Tubal Ligation Additional Past Surgical History / Comment(s): Hx of colostomy and reversal,rotator cuff repair on Left,hx of bifem bypass. Colonoscopy 2012 Past Anesthesia/Blood Transfusion Reactions: No Reported Reaction Past Psychological History: Anxiety, Depression Smoking Status: Former smoker Past Alcohol Use History: None Reported Past Drug Use History: Marijuana Additional History: Lives with her son, no assistive devices - Past Family History Mother Family Medical History: Congestive Heart Failure (CHF), Diabetes Mellitus Brother(s) Additional Family Medical History / Comment(s): CABG Sister(s) Family Medical History: CVA/TIA Additional Family Medical History / Comment(s): Maternal aunt had breast cancer. Medications and Allergies Home Medications Medication Instructions Recorded Confirmed Type Clopidogrel Bisulfate [Plavix] 75 mg PO DAILY 01/21/15 10/25/18 History Ergocalciferol (Vitamin D2) 50,000 unit PO Q14D 01/21/15 10/25/18 History [Drisdol] Ferrous Sulfate [Iron (65 MG 325 mg PO DAILY 01/21/15 10/25/18 History Elemental)] Loratadine [Claritin] 10 mg PO DAILY 01/21/15 10/25/18 History lamoTRIgine [LaMICtal] 25 mg PO BID 01/21/15 10/25/18 History Albuterol Inhaler [Ventolin Hfa 1 - 2 puff INHALATION RT-Q6H PRN 06/30/17 10/25/18 History Inhaler] Atorvastatin [Lipitor] 80 mg PO HS 06/30/17 10/25/18 History Citalopram Hydrobromide [CeleXA] 20 mg PO DAILY 06/30/17 10/25/18 History Famotidine [Pepcid] 40 mg PO DAILY 06/18/18 10/25/18 History amLODIPine [Norvasc] 10 mg PO DAILY 06/18/18 10/25/18 History Isosorbide Mononitrate ER [Imdur] 60 mg PO DAILY #30 tab.er.24h 06/22/18 10/25/18 Rx Albuterol Nebulized [Ventolin 2.5 mg INHALATION RT-Q6H PRN 07/02/18 10/25/18 History Nebulized] hydrALAZINE HCL 25 mg PO BID 07/02/18 10/25/18 History Insulin Glargine,Hum.rec.anlog 22 units SQ DAILY@1400 07/03/18 10/25/18 History [Basaglar Kwikpen U-100] Furosemide [Lasix] 20 mg PO BID #60 tab 07/05/18 10/25/18 Rx Furosemide [Lasix] 40 mg PO BID #60 tablet 07/05/18 10/25/18 Rx Allopurinol [Zyloprim] 100 mg PO DAILY 08/30/18 10/25/18 History Metoprolol Succinate [Toprol XL] 100 mg PO HS 10/08/18 10/25/18 History Umeclidinium [place] [Incruse 62.5 mcg INHALATION RT-HS 10/08/18 10/25/18 History Ellipta] glipiZIDE [Glucotrol] 10 mg PO AC-BID 10/08/18 10/25/18 History Varenicline [Chantix Continuing 1 mg PO BID 10/25/18 10/25/18 History Pack] Allergies Allergy/AdvReac Type Severity Reaction Status Date / Time bee venom protein (honey bee) Allergy Rash/Hives Verified 10/25/18 14:03 Penicillins Allergy Rash/Hives Verified 10/25/18 14:03 Physical Exam Osteopathic Statement: *. No significant issues noted on an osteopathic structural exam other than those noted in the History and Physical/Consult. Vitals: Vital Signs Temp Pulse Resp BP Pulse Ox 10/25/18 18:47 98.6 F 72 18 122/58 98 10/25/18 18:40 70 20 125/51 96 10/25/18 18:20 74 119/55 10/25/18 18:00 72 128/50 97 10/25/18 17:40 75 128/50 96 10/25/18 17:20 77 141/54 95 10/25/18 17:00 84 143/65 93 L 10/25/18 16:40 99.8 F H 83 20 143/65 94 L 10/25/18 16:20 86 147/59 97 10/25/18 16:00 89 160/65 96 10/25/18 15:47 78 16 10/25/18 15:41 83 16 10/25/18 15:30 87 16 10/25/18 15:20 88 148/103 95 10/25/18 15:05 24 10/25/18 15:00 165/86 97 10/25/18 14:01 102.4 F H 93 18 145/67 94 L Intake and Output 10/25/18 10/25/18 10/25/18 06:59 14:59 22:59 Other: Weight 71.214 kg General: Ill appearing, mild distress, appears older than stated age, normal weight Derm: no unusual rashes/lesions no unusual ecchymoses, warm, dry Head: atraumatic, normocephalic, symmetric Eyes: EOMI, no lid lag, anicteric sclera, pupils equal round reactive to light ENT: Nose and ears atraumatic, no thrush, no pharyngeal erythema Neck: No thyromegaly, no cervical lymphadenopathy, trachea midline, supple Mouth: no lip lesion, just membranes dry, Cardiovascular: S1S2 reg, no murmur, positive posterior tibial pulse bilateral, 2+ edema, capillary refill less than 2 seconds Lungs: Bilateral base, no rhonchi, no rales , no accessory muscle use Abdominal: soft, nontender to palpation, no guarding, no appreciable organomegaly, normal bowel sounds Ext: no gross muscle atrophy, muscle strength 5 out of 5 in all 4 extremities grossly, no contractures, Neuro: CN II-XI grossly intact, light touch intact all 4 extremities, finger to nose within normal limits, Psych: Alert, oriented, appropriate affect Results CBC & Chem 7: 10/25/18 15:21 10/25/18 15:21 Labs: Abnormal Lab Results - Last 24 Hours (Table) 10/25/18 10/25/18 10/25/18 Range/Units 15:21 15:21 15:21 WBC 12.3 H (3.8-10.6) k/uL RBC 2.34 L (3.80-5.40) m/uL Hgb 7.4 L (11.4-16.0) gm/dL Hct 22.8 L (34.0-46.0) % RDW 16.5 H (11.5-15.5) % Neutrophils # 11.4 H (1.3-7.7) k/uL Lymphocytes # 0.2 L (1.0-4.8) k/uL Carbon Dioxide 20 L (22-30) mmol/L BUN 54 H (7-17) mg/dL Creatinine 2.42 H (0.52-1.04) mg/dL Glucose 291 H (74-99) mg/dL POC Glucose (mg/dL) (75-99) mg/dL Calcium 8.3 L (8.4-10.2) mg/dL Total Protein 5.4 L (6.3-8.2) g/dL Albumin 3.0 L (3.5-5.0) g/dL Urine Appearance Cloudy H (Clear) Urine Protein 2+ H (Negative) Urine Blood Trace H (Negative) Urine Bacteria Rare H (None) /hpf Hyaline Casts 3 H (0-2) /lpf Urine Mucus Rare H (None) /hpf 10/25/18 10/25/18 Range/Units 17:13 18:09 WBC (3.8-10.6) k/uL RBC (3.80-5.40) m/uL Hgb (11.4-16.0) gm/dL Hct (34.0-46.0) % RDW (11.5-15.5) % Neutrophils # (1.3-7.7) k/uL Lymphocytes # (1.0-4.8) k/uL Carbon Dioxide (22-30) mmol/L BUN (7-17) mg/dL Creatinine (0.52-1.04) mg/dL Glucose (74-99) mg/dL POC Glucose (mg/dL) 321 H 288 H (75-99) mg/dL Calcium (8.4-10.2) mg/dL Total Protein (6.3-8.2) g/dL Albumin (3.5-5.0) g/dL Urine Appearance (Clear) Urine Protein (Negative) Urine Blood (Negative) Urine Bacteria (None) /hpf Hyaline Casts (0-2) /lpf Urine Mucus (None) /hpf Chest x-ray: report reviewed Thrombosis Risk Factor Assmnt - DVT/VTE Prophylaxis DVT/VTE Prophylaxis: Pharmacologic Prophylaxis ordered Assessment and Plan Assessment: Healthcare associated pneumonia with sepsis, possible gram-negative -Continue with Levaquin and Zosyn -Follow chest x-ray until clear -Bronchodilators -Sputum culture -Blood cultures Acute hypoxic respiratory failure secondary to above -Bronchodilators -Decreased O2 as needed Chronic kidney disease stage IV -Creatinine appears at baseline of approximately 2.4 -Consult nephrology Compensated systolic congestive heart failure with ejection fraction 45-50% associated with severe mitral regurgitation -Continue with oral Lasix, metoprolol, not chronically on MI inhibitor secondary to kidney failure -Cardiology consult -Strict I's and O's, daily weights, 2 L fluid restriction, low sodium diet -Telemetry Chronic chest pain - check troponin - cardio consult: per patient Dr. Becerril has been planning Cath. - ekg non ischemic Hypertension -Norvasc, hydralazine, metoprolol -Follow blood pressures Peripheral artery disease -Plavix -Consult cardiology GERD -H2 chau Diabetes mellitus type 2 -Sliding-scale insulin, Levemir 22 units -Hold glipizide -A1c 7.5 The patient is admitted with an anticipated greater than 2 midnight stay for evaluation of Pneumonia, possible gram-negative. Surrogate decision-maker: Joan CODE STATUS: See ACP Discussion DVT prophylaxis: Heparin Discussed with: PAtient, nursing, ED physician Anticipated discharge date: 2-[address]: home A total of 65 minutes was spent on the care of this complex patient more than 50% of the time was spent in counseling and care coordination.
[2018-10-25] MEDS ORDERED: INSULIN DETEMIR (LEVEMIR) 100 UNIT/ML SYR SQ SCH (21:00)
[2018-10-25 21:21] LABS: Glucose,Whole Blood 239 mg/dL (75-99)
[2018-10-25] MEDS: ATORVASTATIN 80 MG TAB PO SCH (21:34)
[2018-10-25] MEDS: lamoTRIgine 25 MG TAB PO SCH (21:34)
[2018-10-25] MEDS: VARENICLINE 1 MG TAB PO SCH (21:34)
[2018-10-25] MEDS: hydrALAZINE HCL 25 MG TAB PO SCH (21:34)
[2018-10-25] MEDS: METOPROLOL SUCCINATE (ER) 100 MG TAB.ER.24H PO SCH (21:34)
[2018-10-25] MEDS: HEPARIN SODIUM,PORCINE 5,000 UNIT/ML 1 ML VIAL SQ SCH (22:54)
[2018-10-25] MEDS: PIPERACILLIN-TAZOBACTAM 3.375 GM in SODIUM CHLORIDE 0.9% 100 ML IVPB SCH (22:56)
[2018-10-26 04:38] LABS: Glucose,Whole Blood 67 mg/dL (75-99)
[2018-10-26 04:43] LABS: Anisocytosis Slight; Basophils % (A) 0 %; Eosinophils # (A) 0.3 k/uL (0-0.7); Eosinophils % (A) 4 %; HCT 20.9 % (34.0-46.0); Lymphocytes # (A) 0.1 k/uL (1.0-4.8); Lymphocytes % (A) 2 %; MCH 31.9 pg (25.0-35.0); MCHC 32.1 g/dL (31.0-37.0); MCV 99.2 fL (80.0-100.0); Macrocytosis Slight; Mean Platelet Volume 8.5; Monocytes # (A) 0.3 k/uL (0-1.0); Monocytes % (A) 5 %; Neutrophils # (A) 5.9 k/uL (1.3-7.7); Neutrophils % (A) 88 %; Platelet Count 178 k/uL (150-450); RBC 2.11 m/uL (3.80-5.40); RDW 16.6 % (11.5-15.5); WBC 6.7 k/uL (3.8-10.6)
[2018-10-26 04:46] LABS: Calcium 8.2 mg/dL (8.4-10.2); Magnesium 2.1 mg/dL (1.6-2.3); Phosphorus 3.5 mg/dL (2.5-4.5); Potassium 3.7 mmol/L (3.5-5.1)
[2018-10-26 06:21] LABS: Glucose,Whole Blood 86 mg/dL (75-99)
[2018-10-26 06:25] LABS: HGB 6.7 gm/dL (11.4-16.0)
[2018-10-26] MEDS: INSULIN ASPART (NovoLOG) 100 UNIT/ML VIAL SQ SCH ×3 (06:37→17:27)
--- NOTE | 2018-10-26 07:12 | XR ---
EXAMINATION TYPE: XR chest 2V DATE OF EXAM: 10/26/2018 COMPARISON: 10/25/2018 HISTORY: 48-year-old female with productive cough and fever TECHNIQUE: PA and lateral views FINDINGS: Heart mildly enlarged. There is patchy medial right basilar opacity persists. Trace effusions. Hyperi nflation. IMPRESSION: 1. Mild cardiomegaly. Hyperinflation may relate to underlying emphysema. 2. Patchy medial right basilar atelectasis or infiltrate persists. 3. Trace effusion seen on the lateral.
[2018-10-26] MEDS ORDERED: INSULIN ASPART (NovoLOG) 100 UNIT/ML VIAL SQ SCH (07:30)
[2018-10-26] MEDS: BUDESONIDE 1 MG/2 ML NEBU INHALATION SCH ×2 (07:57→20:25)
[2018-10-26] MEDS: IPRATROPIUM-ALBUTEROL 3 ML NEB INHALATION SCH ×4 (07:57→20:25)
--- NOTE | 2018-10-26 08:24 | P.CRDCN ---
History of Present Illness Consult date: 10/26/18 Requesting physician: Isadora Santiago Consult reason: shortness of breath Chief complaint: Shortness of breath History of present illness: This is a 48-year-old female who follows regularly with Dr. Julian in the office. She has a known history of COPD, severe peripheral vascular disease status post fem-pop bypass surgery in 2013, bilateral carotid stenosis, hypertension, diabetes, hyperlipidemia, chronic kidney disease, nicotine dependence, prior TIA, admitted to the hospital with symptoms of 2 day progression of worsening shortness of breath with associated productive cough. Patient also states that she was having fevers at home. According to the patient, she has also had a recent office visit with Dr. Julian where he shared some concern with her regarding one of her heart valves. There is also plans down the road for her to undergo cardiac catheterization, however he wants to discuss this with nephrology because of her chronic kidney disease. Chest x-ray on arrival here shows infiltrate in the right lower lobe. EKG shows a normal sinus rhythm with a right axis deviation, no acute changes. Chest x-ray shows mild cardiomegaly, hyperinflation may relate to underlying emphysema. Patchy medial right basilar atelectasis or infiltrate persists. Blood pressure 128/60 with a heart rate in the 60s, 95% on room air. White blood cell count 12.3, hemoglobin 7.4, platelet count 183. Sodium 138, potassium 3.8, BUN 54 and creatinine 2.4. Troponins negative 2. Influenza A and B were negative. This morning's labs, hemoglobin 6.7, platelet count 178. Sodium 137, potassium 3.7, BUN 55 and creatinine 2.5. At the time of my examination this morning, patient still feels somewhat short of breath, she continues to have significant productive cough of yellow sputum. Past Medical History Past Medical History: Cancer, Heart Failure, COPD, CVA/TIA, Diabetes Mellitus, Hyperlipidemia, Hypertension, Renal Disease, Vascular Disorder Additional Past Medical History / Comment(s): CHF, valvular heart disease with MR, peripheral vascular disease, hypertension, hyperlipidemia, COPD, diabetes mellitus II. CML. 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 History of Any Multi-Drug Resistant Organisms: None Reported Past Surgical History: Appendectomy, Bowel Resection, Orthopedic Surgery, Tubal Ligation Additional Past Surgical History / Comment(s): Hx of colostomy and reversal,rotator cuff repair on Left,hx of bifem bypass. Colonoscopy 2013 Past Anesthesia/Blood Transfusion Reactions: No Reported Reaction Past Psychological History: Anxiety, Depression Smoking Status: Former smoker Past Alcohol Use History: None Reported Past Drug Use History: Marijuana - Past Family History Mother Family Medical History: Congestive Heart Failure (CHF), Diabetes Mellitus Brother(s) Additional Family Medical History / Comment(s): CABG Sister(s) Family Medical History: CVA/TIA Additional Family Medical History / Comment(s): Maternal aunt had breast cancer. Medications and Allergies Home Medications Medication Instructions Recorded Confirmed Type Clopidogrel Bisulfate [Plavix] 75 mg PO DAILY 01/21/15 10/25/18 History Ergocalciferol (Vitamin D2) 50,000 unit PO Q14D 01/21/15 10/25/18 History [Drisdol] Ferrous Sulfate [Iron (65 MG 325 mg PO DAILY 01/21/15 10/25/18 History Elemental)] Loratadine [Claritin] 10 mg PO DAILY 01/21/15 10/25/18 History lamoTRIgine [LaMICtal] 25 mg PO BID 01/21/15 10/25/18 History Albuterol Inhaler [Ventolin Hfa 1 - 2 puff INHALATION RT-Q6H PRN 06/30/17 10/25/18 History Inhaler] Atorvastatin [Lipitor] 80 mg PO HS 06/30/17 10/25/18 History Citalopram Hydrobromide [CeleXA] 20 mg PO DAILY 06/30/17 10/25/18 History Famotidine [Pepcid] 40 mg PO DAILY 06/18/18 10/25/18 History amLODIPine [Norvasc] 10 mg PO DAILY 06/18/18 10/25/18 History Isosorbide Mononitrate ER [Imdur] 60 mg PO DAILY #30 tab.er.24h 06/22/18 10/25/18 Rx Albuterol Nebulized [Ventolin 2.5 mg INHALATION RT-Q6H PRN 07/02/18 10/25/18 History Nebulized] hydrALAZINE HCL 25 mg PO BID 07/02/18 10/25/18 History Insulin Glargine,Hum.rec.anlog 22 units SQ DAILY@1400 07/03/18 10/25/18 History [Basagljimmy Fullerpen U-100] Furosemide [Lasix] 20 mg PO BID #60 tab 07/05/18 10/25/18 Rx Furosemide [Lasix] 40 mg PO BID #60 tablet 07/05/18 10/25/18 Rx Allopurinol [Zyloprim] 100 mg PO DAILY 08/30/18 10/25/18 History Metoprolol Succinate [Toprol XL] 100 mg PO HS 10/08/18 10/25/18 History Umeclidinium [place] [Incruse 62.5 mcg INHALATION RT-HS 10/08/18 10/25/18 History Ellipta] glipiZIDE [Glucotrol] 10 mg PO AC-BID 10/08/18 10/25/18 History Varenicline [Chantix Continuing 1 mg PO BID 10/25/18 10/25/18 History Pack] Allergies Allergy/AdvReac Type Severity Reaction Status Date / Time bee venom protein (honey bee) Allergy Rash/Hives Verified 10/25/18 14:03 Penicillins Allergy Rash/Hives Verified 10/25/18 14:03 Physical Exam Vitals: Vital Signs Temp Pulse Pulse Resp BP BP Pulse Ox 10/26/18 08:00 98.1 F 69 16 128/66 95 10/26/18 07:58 74 10/26/18 04:00 98 F 77 17 129/57 93 L 10/25/18 22:58 98.2 F 76 17 130/56 96 10/25/18 19:57 98.5 F 70 17 129/63 97 10/25/18 19:56 98 10/25/18 18:47 98.6 F 72 18 122/58 98 10/25/18 18:40 70 20 125/51 96 10/25/18 18:20 74 119/55 10/25/18 18:00 72 128/50 97 10/25/18 17:40 75 128/50 96 10/25/18 17:20 77 141/54 95 10/25/18 17:00 84 143/65 93 L 10/25/18 16:40 99.8 F H 83 20 143/65 94 L 10/25/18 16:20 86 147/59 97 10/25/18 16:00 89 160/65 96 10/25/18 15:47 78 16 10/25/18 15:41 83 16 10/25/18 15:30 87 16 10/25/18 15:20 88 148/103 95 10/25/18 15:05 24 10/25/18 15:00 165/86 97 10/25/18 14:01 102.4 F H 93 18 145/67 94 L Intake and Output 10/25/18 10/26/18 10/26/18 22:59 06:59 14:59 Intake Total 390 240 Balance 390 240 Intake: Intake, IV Titration 150 Amount Levofloxacin 750Mg-D5w 150 Pmx 750 mg In Dextrose/ Water 1 150ml.bag @ 100 mls/hr IVPB Q24H [facility] Rx#: [id number] Oral 240 240 Other: # Voids 1 2 Weight 72.2 kg 72.2 kg PHYSICAL EXAMINATION: GENERAL: 38-year-old female in no acute distress at the time of my examination HEENT: Head is atraumatic, normocephalic. Pupils equal, round. Sclera anicteric. Conjunctiva are clear. Mucous membranes of the mouth are moist. Neck is supple. There is no elevated jugular venous pressure. Bilateral car otid bruits heard. HEART EXAMINATION: Heart S1 and S2 systolic murmur is heard CHEST EXAMINATION: His reveal coarse crackles and wheezing bilaterally ABDOMEN: Soft, nontender. Bowel sounds are heard. No organomegaly noted. EXTREMITIES: 1+ peripheral pulses with 2+ evidence of peripheral edema and no calf tenderness noted. NEUROLOGIC patient is awake, alert and oriented 3 . . Results 10/26/18 03:00 10/26/18 03:00 Cardiac Enzymes 10/25/18 10/25/18 10/26/18 Range/Units 15:21 20:16 03:00 AST 26 (14-36) U/L Troponin I <0.012 <0.012 (0.000-0.034) ng/mL Coagulation 10/25/18 Range/Units 15:21 PT 10.8 (9.0-12.0) sec APTT 26.0 (22.0-30.0) sec CBC 10/25/18 10/26/18 Range/Units 15:21 03:00 WBC 12.3 H 6.7 (3.8-10.6) k/uL RBC 2.34 L 2.11 L (3.80-5.40) m/uL Hgb 7.4 L 6.7 L* (11.4-16.0) gm/dL Hct 22.8 L 20.9 L (34.0-46.0) % Plt Count 183 178 (150-450) k/uL Comprehensive Metabolic Panel 10/25/18 10/26/18 Range/Units 15:21 03:00 Sodium 138 137 (137-145) mmol/L Potassium 3.8 3.7 (3.5-5.1) mmol/L Chloride 106 107 (98-107) mmol/L Carbon Dioxide 20 L 21 L (22-30) mmol/L BUN 54 H 55 H (7-17) mg/dL Creatinine 2.42 H 2.53 H (0.52-1.04) mg/dL Glucose 291 H 72 L (74-99) mg/dL Calcium 8.3 L 8.2 L (8.4-10.2) mg/dL AST 26 (14-36) U/L ALT 50 (9-52) U/L Alkaline Phosphatase 108 (38-126) U/L Total Protein 5.4 L (6.3-8.2) g/dL Albumin 3.0 L (3.5-5.0) g/dL Current Medications Generic Name Dose Route Start Last Admin Trade Name Freq PRN Reason Stop Dose Admin Acetaminophen 650 mg 10/25/18 18:52 Tylenol Tab PO Q6HR PRN Mild Pain or Fever > 100.5 Hydrocodone Bitart/Acetaminophen 1 each 10/25/18 18:52 [place] 5-325 PO Q4HR PRN Moderate Pain Albuterol Sulfate 2.5 mg 10/25/18 19:37 Ventolin Nebulized INHALATION RT-Q6H PRN Shortness Of Breath Albuterol/Ipratropium 3 ml 10/26/18 08:00 10/26/18 07:57 Duoneb 0.5 Mg-3 Mg/3 Ml Soln INHALATION 3 ml RT-QID [facility] Administration Allopurinol 100 mg 10/26/18 09:00 Zyloprim PO DAILY [facility] Amlodipine Besylate 10 mg 10/26/18 09:00 Norvasc PO DAILY [facility] Atorvastatin Calcium 80 mg 10/25/18 21:00 10/25/18 21:34 Lipitor PO 80 mg HS [facility] Administration Budesonide 1 mg 10/26/18 08:00 10/26/18 07:57 Pulmicort INHALATION 1 mg RT-BID [facility] Administration Citalopram Hydrobromide 20 mg 10/26/18 09:00 Celexa PO DAILY [facility] Clopidogrel Bisulfate 75 mg 10/26/18 09:00 Plavix PO DAILY [facility] Famotidine 40 mg 10/26/18 09:00 Pepcid PO DAILY [facility] Ferrous Sulfate 325 mg 10/26/18 09:00 Feosol PO DAILY [facility] Furosemide 20 mg 10/26/18 09:00 Lasix PO BID@0900,1600 [facility] Furosemide 40 mg 10/26/18 09:00 Lasix PO BID@0900,1600 [facility] Heparin Sodium (Porcine) 5,000 unit 10/26/18 00:00 10/25/18 22:54 Heparin SQ Not Given Q8HR [facility] Hydralazine HCl 25 mg 10/25/18 21:00 10/25/18 21:34 Apresoline PO 25 mg BID [facility] Administration Piperacillin Sod/Tazobactam 100 mls @ 25 mls/hr 10/26/18 00:00 10/25/18 22:56 Sod 3.375 gm/ Sodium Chloride IVPB 11/05/18 00:01 25 mls/hr Q8HR [facility] Administration Levofloxacin 750 mg/ IV 150 mls @ 100 mls/hr 10/26/18 18:00 Solution IVPB Q24H [facility] Insulin Aspart 0 unit 10/25/18 18:30 10/26/18 06:37 Novolog SQ Not Given AC-TID [facility] Protocol Insulin Detemir 18 unit 10/26/18 21:00 Levemir SQ HS [facility] Isosorbide Mononitrate 60 mg 10/26/18 09:00 Imdur PO DAILY [facility] Lamotrigine 25 mg 10/25/18 21:00 10/25/18 21:34 Lamictal PO 25 mg BID [facility] Administration Loratadine 10 mg 10/26/18 09:00 Claritin PO DAILY [facility] Melatonin 3 mg 10/25/18 18:52 Melatonin PO HS PRN Insomnia Metoprolol Succinate 100 mg 10/25/18 21:00 10/25/18 21:34 Toprol Xl PO 100 mg HS [facility] Administration Miscellaneous Information 1 each 10/25/18 16:28 Pneumonia Protocol Utilized PO ONCE PRN Per Protocol Naloxone HCl 0.2 mg 10/25/18 18:52 Narcan IV Q2M PRN Opioid Reversal Ondansetron HCl 4 mg 10/25/18 18:52 Zofran IVP Q8HR PRN Nausea And Vomiting Varenicline 1 mg 10/25/18 21:00 10/25/18 21:34 Chantix PO 1 mg BID [facility] Administration Intake and Output 10/25/18 10/26/18 10/26/18 22:59 06:59 14:59 Intake Total 390 240 Balance 390 240 Intake: Intake, IV Titration 150 Amount Levofloxacin 750Mg-D5w 150 Pmx 750 mg In Dextrose/ Water 1 150ml.bag @ 100 mls/hr IVPB Q24H [facility] Rx#: [id number] Oral 240 240 Other: # Voids 1 2 Weight 72.2 kg 72.2 kg 10/26/18 03:00 10/26/18 03:00 EKG Interpretations (text) EKG shows normal sinus rhythm with a right axis deviation, no acute changes no lloyd. Assessment and Plan Plan: Assessment and plan #1 symptoms of shortness of breath with associated productive cough and fever. Chest x-ray suggestive of pneumonia. Patient initiated on Levaquin and Zosyn #2 chronic kidney disease stage IV #3 hypertension #4 severe peripheral vascular disease with prior fem-pop bypass #5 diabetes #6 hyperlipidemia #7 nicotine dependence #8 prior TIA #9 COPD #10 anemia, hemoglobin 6.7 #11 diastolic congestive heart failure acute on chronic Plan Patient's most recent echocardiogram with Doppler study was performed earlier this month, revealed an ejection fraction of 45-50%, severe mitral regurgitation noted. We will not repeat an echo on this admission. We will obtain Dr. Julian's most recent office note, patient states that Dr. Julian once to perform a cardiac catheterization once he has discussed it with nephrology. Currently the patient has an infection, this will not be done during this admission. Continue antibiotics. Further recommendations to follow. DNP note has been reviewed, I agree with a documented findings and plan of care. Patient was seen and examined.
[2018-10-26] MEDS: PIPERACILLIN-TAZOBACTAM 3.375 GM in SODIUM CHLORIDE 0.9% 100 ML IVPB SCH ×3 (08:43→23:59)
[2018-10-26] MEDS: lamoTRIgine 25 MG TAB PO SCH ×2 (08:52→21:06)
[2018-10-26] MEDS: CITALOPRAM HYDROBROMIDE 20 MG TAB PO SCH (08:52)
[2018-10-26] MEDS: FUROSEMIDE 40 MG TAB PO SCH ×2 (08:52→15:36)
[2018-10-26] MEDS: hydrALAZINE HCL 25 MG TAB PO SCH ×2 (08:52→21:06)
[2018-10-26] MEDS: LORATADINE 10 MG TAB PO SCH (08:52)
[2018-10-26] MEDS: amLODIPine 10 MG TAB PO SCH (08:52)
[2018-10-26] MEDS: FUROSEMIDE 20 MG TAB PO SCH ×2 (08:52→15:36)
[2018-10-26] MEDS: VARENICLINE 1 MG TAB PO SCH ×2 (08:52→21:06)
[2018-10-26] MEDS: ALLOPURINOL 100 MG TAB PO SCH (08:53)
[2018-10-26] MEDS: ISOSORBIDE MONONITRATE ER 60 MG TAB.ER.24H PO SCH (08:53)
[2018-10-26] MEDS: FERROUS SULFATE 325 MG TAB PO SCH (08:53)
[2018-10-26] MEDS: ACETAMINOPHEN TAB 325 MG TAB PO PRN ×3 (08:53→23:57)
[2018-10-26] MEDS: CLOPIDOGREL 75 MG TAB PO SCH (08:53)
[2018-10-26] MEDS: HEPARIN SODIUM,PORCINE 5,000 UNIT/ML 1 ML VIAL SQ SCH ×3 (08:53→23:59)
[2018-10-26] MEDS ORDERED: FAMOTIDINE 20 MG TAB PO SCH (09:00)
--- NOTE | 2018-10-26 11:34 | P.NPCON ---
History of Present Illness - Reason for Consult chronic renal failure - History of Present Illness Reason for consultation: Chronic kidney disease History of present illness: Patient is a 48-year-old female seen in renal consultation for chronic kidney disease. Patient is chronic kidney disease stage IV with basic creatinine in the range of 2.1-2.5 secondary to diabetic kidney disease. Patient presented to the hospital with dyspnea. She is currently being treated for right lower lobe pneumonia. She does admit to a productive cough with brown phlegm. She also has history of systolic CHF with ejection fraction of 40-45% with severe mitral regurgitation. She is currently maintained on Lasix 60 mg orally twice daily which is her home dose. She admits to good urine output. No significant edema. No hematuria or dysuria. Denies chest pain. Renal function is relatively stable. Creatinine 2.53 today. She denies use of nonsteroidals. Hemoglobin today is 6.7. She denies any active bleeding. No melena or hematochezia. Vital signs are stable. General: The patient appeared well nourished and normally developed. HEENT: Head exam is unremarkable. Neck is without jugular venous distension. LUNGS: Breath sounds decreased. HEART: Rate and Rhythm are regular. First and second heart sounds normal. No murmurs, rubs or gallops. ABDOMEN: Abdominal exam reveals normal bowel sounds. Non-tender and non- distended. No evidence of peritonitis. EXTREMITITES: Trace edema. Past Medical History Past Medical History: Cancer, Heart Failure, COPD, CVA/TIA, Diabetes Mellitus, Hyperlipidemia, Hypertension, Renal Disease, Vascular Disorder Additional Past Medical History / Comment(s): CHF, valvular heart disease with MR, peripheral vascular disease, hypertension, hyperlipidemia, COPD, diabetes mellitus II. CML. 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 PAST [employer] HISTORY: She has no history of STDs. History of Any Multi-Drug Resistant Organisms: None Reported Past Surgical History: Appendectomy, Bowel Resection, Orthopedic Surgery, Tubal Ligation Additional Past Surgical History / Comment(s): Hx of colostomy and reversal,rotator cuff repair on Left,hx of bifem bypass. Colonoscopy 2012 Past Anesthesia/Blood Transfusion Reactions: No Reported Reaction Past Psychological History: Anxiety, Depression Smoking Status: Former smoker Past Alcohol Use History: None Reported Past Drug Use History: Marijuana - Past Family History Mother Family Medical History: Congestive Heart Failure (CHF), Diabetes Mellitus Brother(s) Additional Family Medical History / Comment(s): CABG Sister(s) Family Medical History: CVA/TIA Additional Family Medical History / Comment(s): Maternal aunt had breast cancer. Medications and Allergies Home Medications Medication Instructions Recorded Confirmed Type Clopidogrel Bisulfate [Plavix] 75 mg PO DAILY 01/21/15 10/25/18 History Ergocalciferol (Vitamin D2) 50,000 unit PO Q14D 01/21/15 10/25/18 History [Drisdol] Ferrous Sulfate [Iron (65 MG 325 mg PO DAILY 01/21/15 10/25/18 History Elemental)] Loratadine [Claritin] 10 mg PO DAILY 01/21/15 10/25/18 History lamoTRIgine [LaMICtal] 25 mg PO BID 01/21/15 10/25/18 History Albuterol Inhaler [Ventolin Hfa 1 - 2 puff INHALATION RT-Q6H PRN 06/30/17 10/25/18 History Inhaler] Atorvastatin [Lipitor] 80 mg PO HS 06/30/17 10/25/18 History Citalopram Hydrobromide [CeleXA] 20 mg PO DAILY 06/30/17 10/25/18 History Famotidine [Pepcid] 40 mg PO DAILY 06/18/18 10/25/18 History amLODIPine [Norvasc] 10 mg PO DAILY 06/18/18 10/25/18 History Isosorbide Mononitrate ER [Imdur] 60 mg PO DAILY #30 tab.er.24h 06/22/18 10/25/18 Rx Albuterol Nebulized [Ventolin 2.5 mg INHALATION RT-Q6H PRN 07/02/18 10/25/18 History Nebulized] hydrALAZINE HCL 25 mg PO BID 07/02/18 10/25/18 History Insulin Glargine,Hum.rec.anlog 22 units SQ DAILY@1400 07/03/18 10/25/18 History [Basaglar Kwikpen U-100] Furosemide [Lasix] 20 mg PO BID #60 tab 07/05/18 10/25/18 Rx Furosemide [Lasix] 40 mg PO BID #60 tablet 07/05/18 10/25/18 Rx Allopurinol [Zyloprim] 100 mg PO DAILY 08/30/18 10/25/18 History Metoprolol Succinate [Toprol XL] 100 mg PO HS 10/08/18 10/25/18 History Umeclidinium [place] [Incruse 62.5 mcg INHALATION RT-HS 10/08/18 10/25/18 History Ellipta] glipiZIDE [Glucotrol] 10 mg PO AC-BID 10/08/18 10/25/18 History Varenicline [Chantix Continuing 1 mg PO BID 10/25/18 10/25/18 History Pack] Allergies Allergy/AdvReac Type Severity Reaction Status Date / Time bee venom protein (honey bee) Allergy Rash/Hives Verified 10/25/18 14:03 Penicillins Allergy Rash/Hives Verified 10/25/18 14:03 Physical Exam Vitals: Vital Signs Temp Pulse Pulse Resp BP BP Pulse Ox 10/26/18 08:13 70 10/26/18 08:00 98.1 F 69 16 128/66 95 10/26/18 07:58 74 10/26/18 04:00 98 F 77 17 129/57 93 L 10/25/18 22:58 98.2 F 76 17 130/56 96 10/25/18 19:57 98.5 F 70 17 129/63 97 10/25/18 19:56 98 10/25/18 18:47 98.6 F 72 18 122/58 98 10/25/18 18:40 70 20 125/51 96 10/25/18 18:20 74 119/55 10/25/18 18:00 72 128/50 97 10/25/18 17:40 75 128/50 96 10/25/18 17:20 77 141/54 95 10/25/18 17:00 84 143/65 93 L 10/25/18 16:40 99.8 F H 83 20 143/65 94 L 10/25/18 16:20 86 147/59 97 10/25/18 16:00 89 160/65 96 10/25/18 15:47 78 16 10/25/18 15:41 83 16 10/25/18 15:30 87 16 10/25/18 15:20 88 148/103 95 10/25/18 15:05 24 10/25/18 15:00 165/86 97 10/25/18 14:01 102.4 F H 93 18 145/67 94 L Intake and Output 10/25/18 10/26/18 10/26/18 22:59 06:59 14:59 Intake Total 390 240 Balance 390 240 Intake: Intake, IV Titration 150 Amount Levofloxacin 750Mg-D5w 150 Pmx 750 mg In Dextrose/ Water 1 150ml.bag @ 100 mls/hr IVPB Q24H [facility] Rx#: [id number] Oral 240 240 Other: # Voids 1 2 Weight 72.2 kg 72.2 kg Results - Lab Results Most recent lab results Calcium 8.2 mg/dL (8.4-10.2) L 10/26/18 03:00 Phosphorus 3.5 mg/dL (2.5-4.5) 10/26/18 03:00 Magnesium 2.1 mg/dL (1.6-2.3) 10/26/18 03:00 10/26/18 03:00 10/26/18 03:00 Assessment and Plan Plan: Assessment: 1. Chronic kidney disease stage IV secondary to diabetic kidney disease. Patient's creatinine this year has been in the range of 2.1-2.5. 2. Right lower lobe pneumonia maintain on antibiotics. 3. Mild metabolic acidosis secondary to acute kidney injury. 4. Anemia chronic kidney disease. Rule out iron deficiency. No active bleeding. 5. Systolic CHF with ejection fraction of 40-45% with severe mitral regurgitation. 6. Volume overload. Plan: Maintain Lasix 60 mg orally twice daily. Check iron studies. Add Aranesp. Consider blood transfusion if hemoglobin drops further. This was discussed with primary team. Avoid nephrotoxins. Continue to monitor renal function and urine output. Thank you for consultation. I will continue to follow the patient with you during her hospital stay.
[2018-10-26 11:47] LABS: Glucose,Whole Blood 108 mg/dL (75-99)
[2018-10-26] MEDS ORDERED: DARBEPOETIN ALFA 40 MCG/0.4 ML SYRINGE SQ SCH (12:00)
[2018-10-26] MEDS ORDERED: INSULIN DETEMIR (LEVEMIR) 100 UNIT/ML SYR SQ SCH ×2 (14:00→21:00)
[2018-10-26 15:55] LABS: Anisocytosis Slight; HCT 22.6 % (34.0-46.0); HGB 7.5 gm/dL (11.4-16.0); MCH 32.6 pg (25.0-35.0); MCHC 33.2 g/dL (31.0-37.0); MCV 98.4 fL (80.0-100.0); Macrocytosis Slight; Mean Platelet Volume 8.9; Platelet Count 200 k/uL (150-450); RDW 17.1 % (11.5-15.5); WBC 8.5 k/uL (3.8-10.6)
[2018-10-26] MEDS: HYDROcodone/APAP 5-325MG 1 EACH TAB PO PRN (16:22)
[2018-10-26] MEDS ORDERED: LEVOFLOXACIN 750MG-D5W PMX 750 MG in DEXTROSE/WATER 1 150ML.BAG IVPB SCH ×2 (17:00→21:00)
[2018-10-26 17:13] LABS: Glucose,Whole Blood 145 mg/dL (75-99)
[2018-10-26 17:32] LABS: Iron Saturation 4.26 (12.00-45.00)
--- NOTE | 2018-10-26 19:29 | P.PN ---
Subjective Progress Note Date: 10/26/18 (Delayed charting patient seen at 9:30 AM) Principal diagnosis: Fevers Patient is a 48-year-old female with a past medical history of systolic congestive heart failure with left ventricular ejection fraction 45- 50%, chronic kidney disease stage IV, chronic anemia, diabetes, and COPD who presented to the hospital with complaints of fever and shortness of breath. In the ER she underwent an extensive evaluation. On arrival she was found to have a fever of 102.4. Initial laboratory analysis showed a white blood cell count of 12.3, hemoglobin 7.4 which is chronic for her, BUN 54, and creatinine 2.4. He was also found to be hyperglycemic with a glucose of 291. Urinalysis and influenza negative. Chest x-ray shows right lower lobe pneumonia. She was started on IV fluids, Zosyn, and Levaquin. Arrangements were made for admission. Cardiology and nephrology were consulted. No immediate plans for cardiac catheterization. Patient seen and examined at bedside. She denies any chest pain, shortness of breath is improved since yesterday, continues to have cough, fevers getting better. Sugars were low overnight last night. Objective - Vital Signs Vital signs: Vital Signs Temp 100.5 F H 10/26/18 15:13 Pulse 88 10/26/18 15:50 Resp 16 10/26/18 15:13 BP 132/61 10/26/18 15:13 Pulse Ox 92 L 10/26/18 15:13 Intake & Output 10/26/18 10/26/18 10/27/18 06:59 18:59 06:59 Intake Total 240 562 Balance 240 562 Weight 72.2 kg Intake: Intake, IV Titration 100 Amount Piperacillin-Tazobactam 3 100 .375 gm In Sodium Chloride 0.9% 100 ml @ 25 mls/hr IVPB Q8HR [facility] Rx# :[id number] Oral 240 462 Other: # Voids 2 1 - Exam General: non toxic, no distress, appears older than stated age Derm: warm, dry Head: atraumatic, normocephalic, symmetric Eyes: EOMI, no lid lag, anicteric sclera Mouth: no lip lesion, mucus membranes moist Cardiovascular: S1S2 reg, no murmur, positive posterior tibial pulse bilateral, Lungs: course breath sounds , no accessory muscle use Abdominal: soft, nontender to palpation, no guarding, no appreciable organomegaly Ext: no gross muscle atrophy, 2+ edema, no contractures Neuro: CN II-XI grossly intact, no focal neuro deficits Psych: Alert, oriented, appropriate affect - Labs CBC & Chem 7: 10/26/18 15:10 10/26/18 03:00 Labs: Abnormal Lab Results - Last 24 Hours (Table) 10/25/18 10/26/18 10/26/18 Range/Units 21:17 03:00 03:00 RBC 2.11 L (3.80-5.40) m/uL Hgb 6.7 L* (11.4-16.0) gm/dL Hct 20.9 L (34.0-46.0) % RDW 16.6 H (11.5-15.5) % Lymphocytes # 0.1 L (1.0-4.8) k/uL Carbon Dioxide 21 L (22-30) mmol/L BUN 55 H (7-17) mg/dL Creatinine 2.53 H (0.52-1.04) mg/dL Glucose 72 L (74-99) mg/dL POC Glucose (mg/dL) 239 H (75-99) mg/dL Calcium 8.2 L (8.4-10.2) mg/dL Iron (50-170) ug/dL Iron Saturation (12.00-45.00) Ferritin (10.0-291.0) ng/mL 10/26/18 10/26/18 10/26/18 Range/Units 03:00 04:36 11:45 RBC (3.80-5.40) m/uL Hgb (11.4-16.0) gm/dL Hct (34.0-46.0) % RDW (11.5-15.5) % Lymphocytes # (1.0-4.8) k/uL Carbon Dioxide (22-30) mmol/L BUN (7-17) mg/dL Creatinine (0.52-1.04) mg/dL Glucose (74-99) mg/dL POC Glucose (mg/dL) 67 L 108 H (75-99) mg/dL Calcium (8.4-10.2) mg/dL Iron 10 L (50-170) ug/dL Iron Saturation 4.26 L (12.00-45.00) Ferritin 567.9 H (10.0-291.0) ng/mL 10/26/18 10/26/18 Range/Units 15:10 16:57 RBC 2.30 L (3.80-5.40) m/uL Hgb 7.5 L (11.4-16.0) gm/dL Hct 22.6 L (34.0-46.0) % RDW 17.1 H (11.5-15.5) % Lymphocytes # (1.0-4.8) k/uL Carbon Dioxide (22-30) mmol/L BUN (7-17) mg/dL Creatinine (0.52-1.04) mg/dL Glucose (74-99) mg/dL POC Glucose (mg/dL) 145 H (75-99) mg/dL Calcium (8.4-10.2) mg/dL Iron (50-170) ug/dL Iron Saturation (12.00-45.00) Ferritin (10.0-291.0) ng/mL Microbiology - Last 24 Hours (Table) 10/25/18 15:21 Blood Culture - Preliminary Blood No Growth after 24 hours 10/25/18 15:21 Urine Culture - Preliminary Urine,Voided Assessment and Plan Assessment: Healthcare associated pneumonia with sepsis, possible gram-negative -Continue with Levaquin and Zosyn -Follow chest x-ray until clear, repeat in AM -Bronchodilators -Sputum culture -Blood cultures Acute hypoxic respiratory failure secondary to above -Bronchodilators -Decreased O2 as able Chronic kidney disease stage IV -Creatinine appears at baseline of approximately 2.4 -Consult nephrology Anemia, hx of Fe deficiency with infusion - follow CBC - recheck CBC at 1500 - appear at baseline - iron studies Compensated systolic congestive heart failure with ejection fraction 45-50% associated with severe mitral regurgitation -Continue with oral Lasix, metoprolol, not chronically on MI inhibitor secondary to kidney failure -Cardiology recs -Strict I's and O's, daily weights, 2 L fluid restriction, low sodium diet -Telemetry Chronic chest pain - troponin negative - cardio recs apprecited - ekg non ischemic Hypertension -Norvasc, hydralazine, metoprolol -Follow blood pressures Peripheral artery disease -Plavix -Consult cardiology GERD -H2 chau Diabetes mellitus type 2, had hypoglycemia over night -Sliding-scale insulin, Levemir 18 units -Hold glipizide -A1c 7.5 DVT prophylaxis: Heparin Discussed with: Patient, nursing, nephro Anticipated discharge date: [address]: home A total of 35 minutes was spent on the care of this complex patient more than 50% of the time was spent in counseling and care coordination.
[2018-10-26 20:28] LABS: Glucose,Whole Blood 135 mg/dL (75-99)
[2018-10-26] MEDS ORDERED: FUROSEMIDE 10 MG/ML 4 ML VIAL IV SCH (21:00)
[2018-10-26] MEDS: ATORVASTATIN 80 MG TAB PO SCH (21:06)
[2018-10-26] MEDS: METOPROLOL SUCCINATE (ER) 100 MG TAB.ER.24H PO SCH (21:06)
[2018-10-26] MEDS: INSULIN DETEMIR (LEVEMIR) 100 UNIT/ML SYR SQ SCH (22:14)
[2018-10-27] MEDS: ALBUTEROL NEBULIZED 2.5 MG/3 ML INHALATION PRN ×2 (00:53→23:37)
[2018-10-27] MEDS: HYDROcodone/APAP 5-325MG 1 EACH TAB PO PRN ×3 (06:04→21:31)
[2018-10-27 06:27] LABS: Glucose,Whole Blood 67 mg/dL (75-99)
[2018-10-27] MEDS: INSULIN ASPART (NovoLOG) 100 UNIT/ML VIAL SQ SCH ×3 (06:32→17:23)
[2018-10-27 06:39] LABS: Anisocytosis Slight; HCT 22.1 % (34.0-46.0); MCH 31.4 pg (25.0-35.0); MCHC 31.7 g/dL (31.0-37.0); MCV 98.9 fL (80.0-100.0); Macrocytosis Slight; Mean Platelet Volume 8.2; Platelet Count 221 k/uL (150-450); RBC 2.23 m/uL (3.80-5.40); RDW 16.5 % (11.5-15.5)
[2018-10-27 06:41] LABS: Glucose,Whole Blood 66 mg/dL (75-99)
[2018-10-27 06:49] LABS: Calcium 8.4 mg/dL (8.4-10.2); Magnesium 2.1 mg/dL (1.6-2.3); Phosphorus 4.6 mg/dL (2.5-4.5)
[2018-10-27] MEDS: IPRATROPIUM-ALBUTEROL 3 ML NEB INHALATION SCH ×4 (07:01→19:10)
[2018-10-27] MEDS: BUDESONIDE 1 MG/2 ML NEBU INHALATION SCH ×2 (07:01→19:10)
[2018-10-27 07:12] LABS: Glucose,Whole Blood 101 mg/dL (75-99)
--- NOTE | 2018-10-27 07:53 | XR ---
EXAMINATION TYPE: XR chest 2V DATE OF EXAM: 10/27/2018 COMPARISON: 10/26/2018 HISTORY: Follow-up for pneumonia. TECHNIQUE: Frontal and lateral views of the chest are obtained. FINDINGS: There remains right infrahilar patchy airspace disease. Remainder the lungs are clear. Car denae mediastinal silhouette is mildly enlarged. Trace effusions are unchanged as well. IMPRESSION: Unchanged very trace effusions and right infrahilar area that could represent pneumonia or atelectasis.
[2018-10-27] MEDS: HEPARIN SODIUM,PORCINE 5,000 UNIT/ML 1 ML VIAL SQ SCH ×3 (09:28→23:29)
[2018-10-27] MEDS: PIPERACILLIN-TAZOBACTAM 3.375 GM in SODIUM CHLORIDE 0.9% 100 ML IVPB SCH ×2 (09:28→17:24)
[2018-10-27] MEDS: ISOSORBIDE MONONITRATE ER 60 MG TAB.ER.24H PO SCH (09:29)
[2018-10-27] MEDS: ALLOPURINOL 100 MG TAB PO SCH (09:29)
[2018-10-27] MEDS: hydrALAZINE HCL 25 MG TAB PO SCH ×2 (09:29→20:19)
[2018-10-27] MEDS: FUROSEMIDE 20 MG TAB PO SCH ×2 (09:29→17:24)
[2018-10-27] MEDS: CLOPIDOGREL 75 MG TAB PO SCH (09:29)
[2018-10-27] MEDS: LORATADINE 10 MG TAB PO SCH (09:29)
[2018-10-27] MEDS: amLODIPine 10 MG TAB PO SCH (09:29)
[2018-10-27] MEDS: FERROUS SULFATE 325 MG TAB PO SCH (09:30)
[2018-10-27] MEDS: FAMOTIDINE 20 MG TAB PO SCH (09:30)
[2018-10-27] MEDS: VARENICLINE 1 MG TAB PO SCH ×2 (09:30→20:20)
[2018-10-27] MEDS: CITALOPRAM HYDROBROMIDE 20 MG TAB PO SCH (09:30)
[2018-10-27] MEDS: lamoTRIgine 25 MG TAB PO SCH ×2 (09:30→20:20)
[2018-10-27 11:32] LABS: Glucose,Whole Blood 134 mg/dL (75-99)
--- NOTE | 2018-10-27 11:43 | P.PN ---
Subjective Patient is seen in follow-up for chronic kidney disease. Patient has chronic kidney disease stage IV with baseline creatinine in the range of 2.1 2.5 secondary to diabetic kidney disease. She is currently being treated for pneumonia. Continues to have a nonproductive cough. She also has systolic CHF with ejection fraction of 40-45% with severe mitral regurgitation. She admits to good urine output. Denies chest pain. Renal function is a little worse today with creatinine of 2.77. Vital signs are stable. General: The patient appeared well nourished and normally developed. HEENT: Head exam is unremarkable. Neck is without jugular venous distension. LUNGS: Breath sounds decreased. Scattered rhonchi. HEART: Rate and Rhythm are regular. First and second heart sounds normal. No murmurs, rubs or gallops. ABDOMEN: Abdominal exam reveals normal bowel sounds. Non-tender and non- distended. No evidence of peritonitis. EXTREMITITES: Trace edema. Objective - Vital Signs Vital signs: Vital Signs Temp 98.8 F 10/27/18 08:00 Pulse 88 10/27/18 11:21 Resp 16 10/27/18 11:37 BP 116/57 10/27/18 08:00 Pulse Ox 95 10/27/18 08:00 Intake & Output 10/26/18 10/27/18 10/27/18 18:59 06:59 18:59 Intake Total 562 400 240 Output Total 600 Balance 562 -200 240 Weight 72 kg Intake: Intake, IV Titration 100 Amount Piperacillin-Tazobactam 3 100 .375 gm In Sodium Chloride 0.9% 100 ml @ 25 mls/hr IVPB Q8HR [facility] Rx# :[id number] Oral 462 400 240 Output: Urine 600 Other: # Voids 1 1 - Labs CBC & Chem 7: 10/27/18 06:10 10/27/18 06:10 Labs: Abnormal Lab Results - Last 24 Hours (Table) 10/26/18 10/26/18 10/26/18 Range/Units 03:00 11:45 15:10 RBC 2.30 L (3.80-5.40) m/uL Hgb 7.5 L (11.4-16.0) gm/dL Hct 22.6 L (34.0-46.0) % RDW 17.1 H (11.5-15.5) % BUN (7-17) mg/dL Creatinine (0.52-1.04) mg/dL Glucose (74-99) mg/dL POC Glucose (mg/dL) 108 H (75-99) mg/dL Phosphorus (2.5-4.5) mg/dL Iron 10 L (50-170) ug/dL Iron Saturation 4.26 L (12.00-45.00) Ferritin 567.9 H (10.0-291.0) ng/mL 10/26/18 10/26/18 10/27/18 Range/Units 16:57 20:27 06:10 RBC 2.23 L (3.80-5.40) m/uL Hgb 7.0 L (11.4-16.0) gm/dL Hct 22.1 L (34.0-46.0) % RDW 16.5 H (11.5-15.5) % BUN (7-17) mg/dL Creatinine (0.52-1.04) mg/dL Glucose (74-99) mg/dL POC Glucose (mg/dL) 145 H 135 H (75-99) mg/dL Phosphorus (2.5-4.5) mg/dL Iron (50-170) ug/dL Iron Saturation (12.00-45.00) Ferritin (10.0-291.0) ng/mL 10/27/18 10/27/18 10/27/18 Range/Units 06:10 06:26 06:40 RBC (3.80-5.40) m/uL Hgb (11.4-16.0) gm/dL Hct (34.0-46.0) % RDW (11.5-15.5) % BUN 50 H (7-17) mg/dL Creatinine 2.77 H (0.52-1.04) mg/dL Glucose 52 L (74-99) mg/dL POC Glucose (mg/dL) 67 L 66 L (75-99) mg/dL Phosphorus 4.6 H (2.5-4.5) mg/dL Iron (50-170) ug/dL Iron Saturation (12.00-45.00) Ferritin (10.0-291.0) ng/mL 10/27/18 10/27/18 Range/Units 07:01 11:30 RBC (3.80-5.40) m/uL Hgb (11.4-16.0) gm/dL Hct (34.0-46.0) % RDW (11.5-15.5) % BUN (7-17) mg/dL Creatinine (0.52-1.04) mg/dL Glucose (74-99) mg/dL POC Glucose (mg/dL) 101 H 134 H (75-99) mg/dL Phosphorus (2.5-4.5) mg/dL Iron (50-170) ug/dL Iron Saturation (12.00-45.00) Ferritin (10.0-291.0) ng/mL Microbiology - Last 24 Hours (Table) 10/25/18 23:59 Gram Stain - Preliminary Sputum 10/25/18 15:21 Urine Culture - Final Urine,Voided 10/25/18 15:21 Blood Culture - Preliminary Blood No Growth after 24 hours Assessment and Plan Plan: Assessment: 1. Chronic kidney disease stage IV secondary to diabetic kidney disease. Patient's creatinine this year has been in the range of 2.1-2.5. 2. Right lower lobe pneumonia maintained on antibiotics. 3. Mild metabolic acidosis secondary to acute kidney injury. 4. Anemia chronic kidney disease. Severe iron deficiency noted. No active bleeding. 5. Systolic CHF with ejection fraction of 40-45% with severe mitral regurgitation. 6. Volume overload. Better. 7. Acute kidney injury secondary to ATN secondary to infection and diuresis. Creatinine 2.77 today. Plan: Maintain Lasix 60 mg orally twice daily. IV iron 3 doses. First dose today. Maintain Aranesp. Consider blood transfusion if hemoglobin drops further. This was discussed with primary team. Avoid nephrotoxins. Continue to monitor renal function and urine output.
[2018-10-27] MEDS: SODIUM FERRIC GLUCONAT-SUCROSE 125 MG in SODIUM CHLORIDE 0.9% 100 ML IVPB SCH (12:11)
--- NOTE | 2018-10-27 15:19 | P.PN ---
Subjective Progress Note Date: 10/27/18 Principal diagnosis: Patient is a 48-year-old female with a past medical history of systolic congestive heart failure with left ventricular ejection fraction 45- 50%, chronic kidney disease stage IV, chronic anemia, diabetes, and COPD who presented to the hospital with complaints of fever and shortness of breath. In the ER she underwent an extensive evaluation. On arrival she was found to have a fever of 102.4. Initial laboratory analysis showed a white blood cell count of 12.3, hemoglobin 7.4 which is chronic for her, BUN 54, and creatinine 2.4. He was also found to be hyperglycemic with a glucose of 291. Urinalysis and influenza negative. Chest x-ray shows right lower lobe pneumonia. She was started on IV fluids, Zosyn, and Levaquin. Arrangements were made for admission. Cardiology and nephrology were consulted. No immediate plans for cardiac catheterization. the patient seen and examined at bedside, reporting shortness of breath, not wheezing as badly. Currently denies any chest pain. Creatinine up to 2.77 today, patient has been on home dose of Lasix 60 mg PO BID. chest x-ray showing very trace effusions on the right infrahilar region. Patient febrile Yesterday it approximately 3 PM, afebrile in the last 24 hours. Objective - Vital Signs Vital signs: Vital Signs Temp 98.8 F 10/27/18 08:00 Pulse 76 10/27/18 12:00 Resp 16 10/27/18 14:37 BP 128/61 10/27/18 12:00 Pulse Ox 98 10/27/18 12:00 Intake & Output 10/26/18 10/27/18 10/27/18 18:59 06:59 18:59 Intake Total 562 400 662 Output Total 600 Balance 562 -200 662 Weight 72 kg Intake: Intake, IV Titration 100 200 Amount Piperacillin-Tazobactam 3 100 100 .375 gm In Sodium Chloride 0.9% 100 ml @ 25 mls/hr IVPB Q8HR [facility] Rx# :[id number] Sodium Ferric Gluconat- 100 Sucrose 125 mg In Sodium Chloride 0.9% 100 ml @ 100 mls/hr IVPB DAILY [facility] Rx#:[id number] Oral 462 400 462 Output: Urine 600 Other: # Voids 1 1 - Exam Constitutional: No acute distress, conversant, pleasant Eyes: Anicteric sclerae, moist conjunctiva, no lid-lag, PERRLA ENMT: NC/AT,Oropharynx clear, no erythema, exudates Neck:Supple, FROM, no masses, or JVD, No carotid bruits; No thyromegaly Lungs: Scattered rhonchi in the right middle to lower lung britton Cardiovascular: Heart regular in rate and rhythm, No murmurs, gallops, or rubs no peripheral edema Abdominal: Soft Nontender, nom distended, no guarding, no rebound or rigidity, Normoactive bowel sounds No hepatomegaly, No splenomegaly, No palpable mass No abdominal wall hernia noted Skin: Normal temperature, tone, texture, turgor, No induration No subcutaneous nodules, No rash, lesions, No ulcers Extremities:No digital cyanosis No clubbing, Pedal pulses intact and symmetrical Radial pulses intact and symmetrical Normal gait and station, No calf tenderness Psychiatric: Alert and oriented to person, place and time, Appropriate affect Intact judgement Neuro: Muscles Strength 5/5 in all 4 extremities, Sensation to light touch grossly present throughout, Cranial nerves II-XII grossly intact. No focal sensory deficits - Labs CBC & Chem 7: 10/27/18 06:10 10/27/18 06:10 Labs: Abnormal Lab Results - Last 24 Hours (Table) 10/26/18 10/26/18 10/26/18 Range/Units 03:00 15:10 16:57 RBC 2.30 L (3.80-5.40) m/uL Hgb 7.5 L (11.4-16.0) gm/dL Hct 22.6 L (34.0-46.0) % RDW 17.1 H (11.5-15.5) % BUN (7-17) mg/dL Creatinine (0.52-1.04) mg/dL Glucose (74-99) mg/dL POC Glucose (mg/dL) 145 H (75-99) mg/dL Phosphorus (2.5-4.5) mg/dL Iron 10 L (50-170) ug/dL Iron Saturation 4.26 L (12.00-45.00) Ferritin 567.9 H (10.0-291.0) ng/mL 10/26/18 10/27/18 10/27/18 Range/Units 20:27 06:10 06:10 RBC 2.23 L (3.80-5.40) m/uL Hgb 7.0 L (11.4-16.0) gm/dL Hct 22.1 L (34.0-46.0) % RDW 16.5 H (11.5-15.5) % BUN 50 H (7-17) mg/dL Creatinine 2.77 H (0.52-1.04) mg/dL Glucose 52 L (74-99) mg/dL POC Glucose (mg/dL) 135 H (75-99) mg/dL Phosphorus 4.6 H (2.5-4.5) mg/dL Iron (50-170) ug/dL Iron Saturation (12.00-45.00) Ferritin (10.0-291.0) ng/mL 10/27/18 10/27/18 10/27/18 Range/Units 06:26 06:40 07:01 RBC (3.80-5.40) m/uL Hgb (11.4-16.0) gm/dL Hct (34.0-46.0) % RDW (11.5-15.5) % BUN (7-17) mg/dL Creatinine (0.52-1.04) mg/dL Glucose (74-99) mg/dL POC Glucose (mg/dL) 67 L 66 L 101 H (75-99) mg/dL Phosphorus (2.5-4.5) mg/dL Iron (50-170) ug/dL Iron Saturation (12.00-45.00) Ferritin (10.0-291.0) ng/mL 10/27/18 Range/Units 11:30 RBC (3.80-5.40) m/uL Hgb (11.4-16.0) gm/dL Hct (34.0-46.0) % RDW (11.5-15.5) % BUN (7-17) mg/dL Creatinine (0.52-1.04) mg/dL Glucose (74-99) mg/dL POC Glucose (mg/dL) 134 H (75-99) mg/dL Phosphorus (2.5-4.5) mg/dL Iron (50-170) ug/dL Iron Saturation (12.00-45.00) Ferritin (10.0-291.0) ng/mL Microbiology - Last 24 Hours (Table) 10/25/18 23:59 Gram Stain - Preliminary Sputum 10/25/18 15:21 Urine Culture - Final Urine,Voided 10/25/18 15:21 Blood Culture - Preliminary Blood No Growth after 24 hours Assessment and Plan Assessment: Sepsis -Continue with Levaquin and Zosyn -Follow chest x-ray until clear, repeat in AM -Bronchodilators -Sputum culture -Blood cultures Healthcare associated pneumonia with sepsis, possible gram-negative * Treatment as above Acute hypoxic respiratory failure secondary to above -Bronchodilators -Decreased O2 as able Chronic kidney disease stage IV -Creatinine up to 2.7 today.... Previously 2.1-2.5 -Consult nephrology Anemia, hx of Fe deficiency with infusion - follow CBC - recheck CBC at 1500 - appear at baseline - iron studies Compensated systolic congestive heart failure with ejection fraction 45-50% associated with severe mitral regurgitation -Continue with oral Lasix, metoprolol, not chronically on MI inhibitor secondary to kidney failure -Cardiology recs -Strict I's and O's, daily weights, 2 L fluid restriction, low sodium diet -Telemetry Chronic chest pain - troponin negative - cardio recs apprecited - ekg non ischemic Hypertension -Norvasc, hydralazine, metoprolol -Follow blood pressures Peripheral artery disease -Plavix -Consult cardiology GERD -H2 chau Diabetes mellitus type 2, had hypoglycemia over night -Sliding-scale insulin, Levemir 18 units -Hold glipizide -A1c 7.5 DVT prophylaxis: Heparin Discussed with: Patient, nursing, nephro Anticipated discharge date: [address]: home A total of 35 minutes was spent on the care of this complex patient more than 50% of the time was spent in counseling and care coordination.
[2018-10-27 16:48] LABS: Glucose,Whole Blood 199 mg/dL (75-99)
[2018-10-27] MEDS ORDERED: LEVOFLOXACIN 750MG-D5W PMX 750 MG in DEXTROSE/WATER 1 150ML.BAG IVPB SCH (18:00)
[2018-10-27] MEDS: METOPROLOL SUCCINATE (ER) 100 MG TAB.ER.24H PO SCH (20:19)
[2018-10-27] MEDS: ATORVASTATIN 80 MG TAB PO SCH (20:19)
[2018-10-27] MEDS: guaiFENesin 600 MG TABLET.ER PO SCH (20:20)
[2018-10-27 20:52] LABS: Glucose,Whole Blood 190 mg/dL (75-99)
[2018-10-27] MEDS: INSULIN DETEMIR (LEVEMIR) 100 UNIT/ML SYR SQ SCH (21:03)
[2018-10-27] MEDS: ONDANSETRON 4 MG/2 ML VIAL IVP PRN (23:29)
[2018-10-28] MEDS: PIPERACILLIN-TAZOBACTAM 3.375 GM in SODIUM CHLORIDE 0.9% 100 ML IVPB SCH ×3 (01:30→20:33)
[2018-10-28] MEDS: HYDROcodone/APAP 5-325MG 1 EACH TAB PO PRN ×5 (05:09→23:52)
[2018-10-28] MEDS: ALBUTEROL NEBULIZED 2.5 MG/3 ML INHALATION PRN (05:35)
[2018-10-28 05:41] LABS: Glucose,Whole Blood 67 mg/dL (75-99)
[2018-10-28 05:42] LABS: Glucose,Whole Blood 59 mg/dL (75-99)
[2018-10-28 05:55] LABS: Glucose,Whole Blood 74 mg/dL (75-99)
[2018-10-28] MEDS: INSULIN ASPART (NovoLOG) 100 UNIT/ML VIAL SQ SCH ×3 (06:19→17:22)
[2018-10-28] MEDS: BUDESONIDE 1 MG/2 ML NEBU INHALATION SCH ×2 (07:14→20:41)
[2018-10-28] MEDS: IPRATROPIUM-ALBUTEROL 3 ML NEB INHALATION SCH ×4 (07:14→20:41)
[2018-10-28 07:33] LABS: Anisocytosis Slight; Basophils % (A) 0 %; Eosinophils # (A) 0.3 k/uL (0-0.7); Eosinophils % (A) 4 %; HCT 20.5 % (34.0-46.0); Lymphocytes # (A) 0.3 k/uL (1.0-4.8); Lymphocytes % (A) 5 %; MCH 31.8 pg (25.0-35.0); MCHC 32.5 g/dL (31.0-37.0); MCV 97.8 fL (80.0-100.0); Macrocytosis Slight; Mean Platelet Volume 8.6; Monocytes # (A) 0.3 k/uL (0-1.0); Monocytes % (A) 5 %; Neutrophils # (A) 5.5 k/uL (1.3-7.7); Neutrophils % (A) 85 %; Platelet Count 184 k/uL (150-450); RBC 2.09 m/uL (3.80-5.40); RDW 17.1 % (11.5-15.5); WBC 6.4 k/uL (3.8-10.6)
[2018-10-28 07:36] LABS: Calcium 8.5 mg/dL (8.4-10.2); Magnesium 2.2 mg/dL (1.6-2.3); Potassium 4.9 mmol/L (3.5-5.1)
[2018-10-28 07:40] LABS: HGB 6.7 gm/dL (11.4-16.0)
--- NOTE | 2018-10-28 08:43 | XR ---
EXAMINATION TYPE: XR chest 2V DATE OF EXAM: 10/28/2018 COMPARISON: 10/27/2018 HISTORY: 48-year-old female right back pain, dyspnea, pneumonia TECHNIQUE: PA and lateral views FINDINGS: Borderline heart size. Mild diffuse interstitial prominence and mild hyperinflation. Patchy medial ri ght basilar opacity and trace right effusion persist. IMPRESSION: Stable medial right basilar infiltrate/pneumonia with trace right effusion. Possible background COPD.
--- NOTE | 2018-10-28 09:31 | P.PN ---
Subjective Patient is seen in follow-up for chronic kidney disease. Patient has chronic kidney disease stage IV with baseline creatinine in the range of 2.1 2.5 secondary to diabetic kidney disease. She is currently being treated for pneumonia. Continues to have a nonproductive cough. She also has systolic CHF with ejection fraction of 40-45% with severe mitral regurgitation. She admits to good urine output. Denies chest pain. Renal function has been gradually worsening. Creatinine is up to 2.96 today. She still feels edematous especially in her lower extremities. She is maintained on Lasix 60 mg orally twice daily. Hemoglobin is also 6.7 today. No active bleeding. Vital signs are stable. General: The patient appeared well nourished and normally developed. HEENT: Head exam is unremarkable. Neck is without jugular venous distension. LUNGS: Breath sounds decreased. Scattered rhonchi. HEART: Rate and Rhythm are regular. First and second heart sounds normal. No murmurs, rubs or gallops. ABDOMEN: Abdominal exam reveals normal bowel sounds. Non-tender and non- distended. No evidence of peritonitis. EXTREMITITES: 1+ edema. Objective - Vital Signs Vital signs: Vital Signs Temp 97.5 F L 10/28/18 04:00 Pulse 76 10/28/18 07:29 Resp 16 10/28/18 04:00 BP 115/63 10/28/18 04:00 Pulse Ox 96 10/28/18 04:00 Intake & Output 10/27/18 10/28/18 10/28/18 18:59 06:59 18:59 Intake Total 884 1200 Output Total 1200 Balance 884 0 Weight 73.1 kg Intake: Intake, IV Titration 200 Amount Piperacillin-Tazobactam 3 100 .375 gm In Sodium Chloride 0.9% 100 ml @ 25 mls/hr IVPB Q8HR [facility] Rx# :[id number] Sodium Ferric Gluconat- 100 Sucrose 125 mg In Sodium Chloride 0.9% 100 ml @ 100 mls/hr IVPB DAILY [facility] Rx#:[id number] Oral 684 1200 Output: Urine 1200 Other: # Voids 2 - Labs CBC & Chem 7: 10/28/18 06:21 10/28/18 06:21 Labs: Abnormal Lab Results - Last 24 Hours (Table) 06/27/19 06/27/19 06/27/19 Range/Units 11:30 16:46 20:50 RBC (3.80-5.40) m/uL Hgb (11.4-16.0) gm/dL Hct (34.0-46.0) % RDW (11.5-15.5) % Lymphocytes # (1.0-4.8) k/uL BUN (7-17) mg/dL Creatinine (0.52-1.04) mg/dL POC Glucose (mg/dL) 134 H 199 H 190 H (75-99) mg/dL 10/28/18 10/28/18 10/28/18 Range/Units 05:23 05:40 05:54 RBC (3.80-5.40) m/uL Hgb (11.4-16.0) gm/dL Hct (34.0-46.0) % RDW (11.5-15.5) % Lymphocytes # (1.0-4.8) k/uL BUN (7-17) mg/dL Creatinine (0.52-1.04) mg/dL POC Glucose (mg/dL) 59 L 67 L 74 L (75-99) mg/dL 10/28/18 10/28/18 Range/Units 06:21 06:21 RBC 2.09 L (3.80-5.40) m/uL Hgb 6.7 L* (11.4-16.0) gm/dL Hct 20.5 L (34.0-46.0) % RDW 17.1 H (11.5-15.5) % Lymphocytes # 0.3 L (1.0-4.8) k/uL BUN 51 H (7-17) mg/dL Creatinine 2.96 H (0.52-1.04) mg/dL POC Glucose (mg/dL) (75-99) mg/dL Microbiology - Last 24 Hours (Table) 10/25/18 15:21 Blood Culture - Preliminary Blood No Growth after 48 hours 10/25/18 23:59 Gram Stain - Preliminary Sputum Sputum Culture - Preliminary Assessment and Plan Plan: Assessment: 1. Chronic kidney disease stage IV secondary to diabetic kidney disease. Patient's creatinine this year has been in the range of 2.1-2.5. 2. Right lower lobe pneumonia maintained on antibiotics. 3. Mild metabolic acidosis secondary to acute kidney injury. Better. 4. Anemia chronic kidney disease. Severe iron deficiency noted. No active bleeding. 5. Systolic CHF with ejection fraction of 40-45% with severe mitral regurgitation. 6. Volume overload. Better. 7. Acute kidney injury secondary to ATN secondary to infection and diuresis. Also component of anemia. Creatinine 2.96 today. Plan: Maintain Lasix 60 mg orally twice daily. IV iron 3 doses. Second dose today. Maintain Aranesp. Consider 1 unit blood transfusion. Avoid nephrotoxins. Continue to monitor renal function and urine output.
[2018-10-28] MEDS: HEPARIN SODIUM,PORCINE 5,000 UNIT/ML 1 ML VIAL SQ SCH ×3 (09:33→23:52)
[2018-10-28] MEDS: FERROUS SULFATE 325 MG TAB PO SCH (09:33)
[2018-10-28] MEDS: lamoTRIgine 25 MG TAB PO SCH ×2 (09:33→20:32)
[2018-10-28] MEDS: CITALOPRAM HYDROBROMIDE 20 MG TAB PO SCH (09:33)
[2018-10-28] MEDS: CLOPIDOGREL 75 MG TAB PO SCH (09:33)
[2018-10-28] MEDS: amLODIPine 10 MG TAB PO SCH (09:33)
[2018-10-28] MEDS: ALLOPURINOL 100 MG TAB PO SCH (09:35)
[2018-10-28] MEDS: FAMOTIDINE 20 MG TAB PO SCH (09:35)
[2018-10-28] MEDS: ISOSORBIDE MONONITRATE ER 60 MG TAB.ER.24H PO SCH (09:35)
[2018-10-28] MEDS: hydrALAZINE HCL 25 MG TAB PO SCH ×2 (09:35→20:32)
[2018-10-28] MEDS: SODIUM FERRIC GLUCONAT-SUCROSE 125 MG in SODIUM CHLORIDE 0.9% 100 ML IVPB SCH (09:35)
[2018-10-28] MEDS: guaiFENesin 600 MG TABLET.ER PO SCH ×2 (09:36→20:32)
[2018-10-28] MEDS: VARENICLINE 1 MG TAB PO SCH ×2 (09:36→20:34)
[2018-10-28] MEDS: LORATADINE 10 MG TAB PO SCH (09:36)
[2018-10-28] MEDS ORDERED: FUROSEMIDE 10 MG/ML 2 ML VIAL IV ONE (10:13)
--- NOTE | 2018-10-28 11:47 | P.PN ---
Subjective Progress Note Date: 10/28/18 Principal diagnosis: Patient is a 48-year-old female with a past medical history of systolic congestive heart failure with left ventricular ejection fraction 45- 50%, chronic kidney disease stage IV, chronic anemia, diabetes, and COPD who presented to the hospital with complaints of fever and shortness of breath. In the ER she underwent an extensive evaluation. On arrival she was found to have a fever of 102.4. Initial laboratory analysis showed a white blood cell count of 12.3, hemoglobin 7.4 which is chronic for her, BUN 54, and creatinine 2.4. He was also found to be hyperglycemic with a glucose of 291. Urinalysis and influenza negative. Chest x-ray shows right lower lobe pneumonia. She was started on IV fluids, Zosyn, and Levaquin. Arrangements were made for admission. Cardiology and nephrology were consulted. No immediate plans for cardiac catheterization. the patient seen and examined at bedside, reporting shortness of breath, reports her cough is loosening up a bit since starting Mucinex, complaining of nausea this morning. Hemoglobin down to 6.7, Creatinine up to 2.96 today, patient has been on home dose of Lasix 60 mg PO BID. chest x-ray showing stable medial basilar infiltrate with trace right effusion. Has been afebrile for almost 48 hours Objective - Vital Signs Vital signs: Vital Signs Temp 98.9 F 10/28/18 08:00 Pulse 80 10/28/18 10:50 Resp 16 10/28/18 08:00 BP 147/67 10/28/18 08:00 Pulse Ox 90 L 10/28/18 08:00 Intake & Output 10/27/18 10/28/18 10/28/18 18:59 06:59 18:59 Intake Total 884 1200 Output Total 1200 Balance 884 0 Weight 73.1 kg Intake: Intake, IV Titration 200 Amount Piperacillin-Tazobactam 3 100 .375 gm In Sodium Chloride 0.9% 100 ml @ 25 mls/hr IVPB Q8HR [facility] Rx# :[id number] Sodium Ferric Gluconat- 100 Sucrose 125 mg In Sodium Chloride 0.9% 100 ml @ 100 mls/hr IVPB DAILY [facility] Rx#:[id number] Oral 684 1200 Output: Urine 1200 Other: # Voids 2 - Exam Constitutional: No acute distress, conversant, pleasant Eyes: Anicteric sclerae, moist conjunctiva, no lid-lag, PERRLA ENMT: NC/AT,Oropharynx clear, no erythema, exudates Neck:Supple, FROM, no masses, or JVD, No carotid bruits; No thyromegaly Lungs: Scattered rhonchi in the right middle to lower lung britton Cardiovascular: Heart regular in rate and rhythm, No murmurs, gallops, or rubs no peripheral edema Abdominal: Soft Nontender, nom distended, no guarding, no rebound or rigidity, Normoactive bowel sounds No hepatomegaly, No splenomegaly, No palpable mass No abdominal wall hernia noted Skin: Normal temperature, tone, texture, turgor, No induration No subcutaneous nodules, No rash, lesions, No ulcers Extremities:No digital cyanosis No clubbing, Pedal pulses intact and symmetrical Radial pulses intact and symmetrical Normal gait and station, No calf tenderness Psychiatric: Alert and oriented to person, place and time, Appropriate affect Intact judgement Neuro: Muscles Strength 5/5 in all 4 extremities, Sensation to light touch grossly present throughout, Cranial nerves II-XII grossly intact. No focal sensory deficits - Labs CBC & Chem 7: 10/28/18 06:21 10/28/18 06:21 Labs: Abnormal Lab Results - Last 24 Hours (Table) 10/27/18 10/27/18 10/28/18 Range/Units 16:46 20:50 05:23 RBC (3.80-5.40) m/uL Hgb (11.4-16.0) gm/dL Hct (34.0-46.0) % RDW (11.5-15.5) % Lymphocytes # (1.0-4.8) k/uL BUN (7-17) mg/dL Creatinine (0.52-1.04) mg/dL POC Glucose (mg/dL) 199 H 190 H 59 L (75-99) mg/dL 10/28/18 10/28/18 10/28/18 Range/Units 05:40 05:54 06:21 RBC (3.80-5.40) m/uL Hgb (11.4-16.0) gm/dL Hct (34.0-46.0) % RDW (11.5-15.5) % Lymphocytes # (1.0-4.8) k/uL BUN 51 H (7-17) mg/dL Creatinine 2.96 H (0.52-1.04) mg/dL POC Glucose (mg/dL) 67 L 74 L (75-99) mg/dL 10/28/18 Range/Units 06:21 RBC 2.09 L (3.80-5.40) m/uL Hgb 6.7 L* (11.4-16.0) gm/dL Hct 20.5 L (34.0-46.0) % RDW 17.1 H (11.5-15.5) % Lymphocytes # 0.3 L (1.0-4.8) k/uL BUN (7-17) mg/dL Creatinine (0.52-1.04) mg/dL POC Glucose (mg/dL) (75-99) mg/dL Microbiology - Last 24 Hours (Table) 10/25/18 23:59 Gram Stain - Final Sputum Sputum Culture - Final 10/25/18 15:21 Blood Culture - Preliminary Blood No Growth after 48 hours Assessment and Plan Assessment: Sepsis -Continue with Levaquin and Zosyn -Follow chest x-ray until clear, repeat in AM -Bronchodilators -Sputum culture showing moderate respiratory elicia -Blood cultures no growth 48 hours Healthcare associated pneumonia with sepsis, possible gram-negative * Treatment as above Acute hypoxic respiratory failure secondary to above -Bronchodilators -Decreased O2 as able Chronic kidney disease stage IV -Creatinine up to 2.96today.... Previously 2.1-2.5 -Consult nephrology Anemia, hx of Fe deficiency with infusion - follow CBC -Hemoglobin this morning 6.7, will type and cross and transfuse packed RBCs with plan for 20 mg Lasix dose afterwards - iron studies Compensated systolic congestive heart failure with ejection fraction 45-50% associated with severe mitral regurgitation -Continue with oral Lasix, metoprolol, not chronically on MI inhibitor secondary to kidney failure -Cardiology recs -Strict I's and O's, daily weights, 2 L fluid restriction, low sodium diet -Telemetry Chronic chest pain - troponin negative - cardio recs apprecited - ekg non ischemic Hypertension -Norvasc, hydralazine, metoprolol -Follow blood pressures Peripheral artery disease -Plavix -Consult cardiology GERD -H2 chau Diabetes mellitus type 2, had hypoglycemia over night -Sliding-scale insulin, Levemir 18 units -Hold glipizide -A1c 7.5 DVT prophylaxis: Heparin Discussed with: Patient, nursing, nephro Anticipated discharge date: [address]: home A total of 35 minutes was spent on the care of this complex patient more than 50% of the time was spent in counseling and care coordination.
[2018-10-28 11:48] LABS: Glucose,Whole Blood 119 mg/dL (75-99)
[2018-10-28] MEDS: ONDANSETRON 4 MG/2 ML VIAL IVP PRN ×2 (12:05→20:35)
[2018-10-28] MEDS: FUROSEMIDE 20 MG TAB PO SCH ×2 (12:05→17:25)
[2018-10-28 17:12] LABS: Glucose,Whole Blood 132 mg/dL (75-99)
[2018-10-28] MEDS: INSULIN DETEMIR (LEVEMIR) 100 UNIT/ML SYR SQ SCH (20:32)
[2018-10-28] MEDS: ATORVASTATIN 80 MG TAB PO SCH (20:32)
[2018-10-28] MEDS: METOPROLOL SUCCINATE (ER) 100 MG TAB.ER.24H PO SCH (20:32)
[2018-10-28] MEDS: MELATONIN 3 MG TABLET PO PRN (20:35)
[2018-10-28 20:50] LABS: Glucose,Whole Blood 155 mg/dL (75-99)
[2018-10-29] MEDS: ALBUTEROL NEBULIZED 2.5 MG/3 ML INHALATION PRN (02:09)
[2018-10-29] MEDS ORDERED: ALPRAZolam 0.25 MG TAB PO PRN (06:20)
[2018-10-29] MEDS ORDERED: FLUTICASONE 50MCG/SPRAY NASAL 16GM EA NOSTRIL PRN (06:21)
[2018-10-29 06:26] LABS: Glucose,Whole Blood 171 mg/dL (75-99)
[2018-10-29] MEDS: INSULIN ASPART (NovoLOG) 100 UNIT/ML VIAL SQ SCH ×3 (06:32→17:36)
[2018-10-29] MEDS: BUDESONIDE 1 MG/2 ML NEBU INHALATION SCH ×2 (07:09→20:08)
[2018-10-29] MEDS: IPRATROPIUM-ALBUTEROL 3 ML NEB INHALATION SCH ×4 (07:09→20:08)
[2018-10-29] MEDS: ISOSORBIDE MONONITRATE ER 60 MG TAB.ER.24H PO SCH (08:27)
[2018-10-29] MEDS: hydrALAZINE HCL 25 MG TAB PO SCH ×2 (08:27→20:41)
[2018-10-29] MEDS: guaiFENesin 600 MG TABLET.ER PO SCH ×2 (08:27→20:41)
[2018-10-29] MEDS: FERROUS SULFATE 325 MG TAB PO SCH (08:27)
[2018-10-29] MEDS: ONDANSETRON 4 MG/2 ML VIAL IVP PRN (08:27)
[2018-10-29] MEDS: CITALOPRAM HYDROBROMIDE 20 MG TAB PO SCH (08:27)
[2018-10-29] MEDS: FUROSEMIDE 20 MG TAB PO SCH (08:27)
[2018-10-29] MEDS: FAMOTIDINE 20 MG TAB PO SCH (08:27)
[2018-10-29] MEDS: amLODIPine 10 MG TAB PO SCH (08:27)
[2018-10-29] MEDS: LORATADINE 10 MG TAB PO SCH (08:28)
[2018-10-29] MEDS: ALLOPURINOL 100 MG TAB PO SCH (08:28)
[2018-10-29] MEDS: lamoTRIgine 25 MG TAB PO SCH ×2 (08:28→20:41)
[2018-10-29] MEDS: VARENICLINE 1 MG TAB PO SCH ×2 (08:28→20:40)
[2018-10-29] MEDS: HYDROcodone/APAP 5-325MG 1 EACH TAB PO PRN ×2 (08:28→17:37)
[2018-10-29] MEDS: SODIUM FERRIC GLUCONAT-SUCROSE 125 MG in SODIUM CHLORIDE 0.9% 100 ML IVPB SCH (08:37)
[2018-10-29 09:22] LABS: Anisocytosis Slight; Basophils % (A) 0 %; Eosinophils # (A) 0.1 k/uL (0-0.7); Eosinophils % (A) 2 %; HCT 24.3 % (34.0-46.0); HGB 7.7 gm/dL (11.4-16.0); Hypochromasia Slight; Lymphocytes # (A) 0.3 k/uL (1.0-4.8); Lymphocytes % (A) 4 %; MCH 31.3 pg (25.0-35.0); MCHC 31.6 g/dL (31.0-37.0); MCV 99.3 fL (80.0-100.0); Macrocytosis Slight; Mean Platelet Volume 8.5; Monocytes # (A) 0.2 k/uL (0-1.0); Monocytes % (A) 3 %; Neutrophils # (A) 5.8 k/uL (1.3-7.7); Neutrophils % (A) 89 %; Platelet Count 192 k/uL (150-450); RBC 2.45 m/uL (3.80-5.40); RDW 16.8 % (11.5-15.5); WBC 6.5 k/uL (3.8-10.6)
[2018-10-29 09:37] LABS: Calcium 8.5 mg/dL (8.4-10.2); Potassium 5.2 mmol/L (3.5-5.1)
--- NOTE | 2018-10-29 09:43 | P.PN ---
Subjective Progress Note Date: 10/29/18 Seen and examined for the follow-up of acute kidney injury on chronic kidney disease. Creatinine creeping today. No nausea vomiting diarrhea. Still requiring oxygen. Objective - Vital Signs Vital signs: Vital Signs Temp 97.7 F 10/29/18 04:00 Pulse 76 10/29/18 07:27 Resp 18 10/29/18 04:00 BP 132/59 10/29/18 04:00 Pulse Ox 99 10/29/18 04:00 Intake & Output 10/28/18 10/29/18 10/29/18 18:59 06:59 18:59 Intake Total 510 340 Balance 510 340 Intake: Intake, IV Titration 200 Amount Piperacillin-Tazobactam 3 100 .375 gm In Sodium Chloride 0.9% 100 ml @ 25 mls/hr IVPB Q12HR [facility] Rx #:[id number] Sodium Ferric Gluconat- 100 Sucrose 125 mg In Sodium Chloride 0.9% 100 ml @ 100 mls/hr IVPB DAILY [facility] Rx#:[id number] Oral 340 Blood Product 310 Rc As-1 Unit 310 [id number] Other: Voiding Method Toilet - Exam No acute distress S1-S2 heard Decreased breath sounds No edema - Labs CBC & Chem 7: 10/29/18 08:57 10/29/18 08:57 Labs: Abnormal Lab Results - Last 24 Hours (Table) 10/28/18 10/28/18 10/28/18 Range/Units 10:23 11:43 16:52 RBC (3.80-5.40) m/uL Hgb (11.4-16.0) gm/dL Hct (34.0-46.0) % RDW (11.5-15.5) % Lymphocytes # (1.0-4.8) k/uL Sodium (137-145) mmol/L Potassium (3.5-5.1) mmol/L BUN (7-17) mg/dL Creatinine (0.52-1.04) mg/dL POC Glucose (mg/dL) 119 H 132 H (75-99) mg/dL Crossmatch See Detail 10/28/18 10/29/18 10/29/18 Range/Units 20:49 06:13 08:57 RBC 2.45 L (3.80-5.40) m/uL Hgb 7.7 L (11.4-16.0) gm/dL Hct 24.3 L (34.0-46.0) % RDW 16.8 H (11.5-15.5) % Lymphocytes # 0.3 L (1.0-4.8) k/uL Sodium (137-145) mmol/L Potassium (3.5-5.1) mmol/L BUN (7-17) mg/dL Creatinine (0.52-1.04) mg/dL POC Glucose (mg/dL) 155 H 171 H (75-99) mg/dL Crossmatch 10/29/18 Range/Units 08:57 RBC (3.80-5.40) m/uL Hgb (11.4-16.0) gm/dL Hct (34.0-46.0) % RDW (11.5-15.5) % Lymphocytes # (1.0-4.8) k/uL Sodium 135 L (137-145) mmol/L Potassium 5.2 H (3.5-5.1) mmol/L BUN 62 H (7-17) mg/dL Creatinine 3.43 H (0.52-1.04) mg/dL POC Glucose (mg/dL) (75-99) mg/dL Crossmatch Microbiology - Last 24 Hours (Table) 10/25/18 15:21 Blood Culture - Preliminary Blood No Growth after 72 hours 10/25/18 23:59 Gram Stain - Final Sputum Sputum Culture - Final Assessment and Plan Assessment: #1 acute kidney injury secondary to over diuresis. Creatinine creeping. #2 chronic kidney disease stage IV secondary to diabetic kidney disease baseline creatinine 2.1-2.5 MG per DL. #3 diastolic CHF with EF of 45% #4 right lower lobe pneumonia #5 metabolic acidosis #6 anemia with chronic kidney disease Plan: #1 stop diuretics. #2 gentle hydration with 0.9 saline at 75 ML's an hour. #3 avoid nephrotoxic agents and hypotensive episodes. #4 maintain hemoglobin more than 8 #5 bladder scan to rule out urinary retention
[2018-10-29] MEDS: HEPARIN SODIUM,PORCINE 5,000 UNIT/ML 1 ML VIAL SQ SCH ×2 (10:01→17:33)
[2018-10-29] MEDS: CLOPIDOGREL 75 MG TAB PO SCH (10:01)
[2018-10-29] MEDS: PIPERACILLIN-TAZOBACTAM 3.375 GM in SODIUM CHLORIDE 0.9% 100 ML IVPB SCH ×2 (10:02→20:42)
[2018-10-29] MEDS: SODIUM CHLORIDE 0.9% 1,000 ML IV SCH (10:03)
--- NOTE | 2018-10-29 11:47 | P.PN ---
Subjective Progress Note Date: 10/29/18 Principal diagnosis: Patient is a 48-year-old female with a past medical history of systolic congestive heart failure with left ventricular ejection fraction 45- 50%, chronic kidney disease stage IV, chronic anemia, diabetes, and COPD who presented to the hospital with complaints of fever and shortness of breath. In the ER she underwent an extensive evaluation. On arrival she was found to have a fever of 102.4. Initial laboratory analysis showed a white blood cell count of 12.3, hemoglobin 7.4 which is chronic for her, BUN 54, and creatinine 2.4. He was also found to be hyperglycemic with a glucose of 291. Urinalysis and influenza negative. Chest x-ray shows right lower lobe pneumonia. She was started on IV fluids, Zosyn, and Levaquin. Arrangements were made for admission. Cardiology and nephrology were consulted. No immediate plans for cardiac catheterization. the patient seen and examined at bedside, reporting shortness of breath, reports her cough is loosening up a bit since starting Mucinex, complaining of nausea this morning. Hemoglobin up to 7.7, Creatinine up to 3.43 today, patient has been on home dose of Lasix 60 mg PO BID. chest x-ray 10/28 showing stable medial basilar infiltrate with trace right effusion. Has been afebrile f or over 48 hours Objective - Vital Signs Vital signs: Vital Signs Temp 98.7 F 10/29/18 08:27 Pulse 72 10/29/18 11:28 Resp 22 10/29/18 08:27 BP 141/64 10/29/18 08:27 Pulse Ox 97 10/29/18 08:27 Intake & Output 10/28/18 10/29/18 10/29/18 18:59 06:59 18:59 Intake Total 510 340 Balance 510 340 Intake: Intake, IV Titration 200 Amount Piperacillin-Tazobactam 3 100 .375 gm In Sodium Chloride 0.9% 100 ml @ 25 mls/hr IVPB Q12HR [facility] Rx #:[id number] Sodium Ferric Gluconat- 100 Sucrose 125 mg In Sodium Chloride 0.9% 100 ml @ 100 mls/hr IVPB DAILY [facility] Rx#:[id number] Oral 340 Blood Product 310 Rc As-1 Unit 310 [id number] Other: Voiding Method Toilet Toilet # Voids 0 - Exam Constitutional: No acute distress, conversant, pleasant Eyes: Anicteric sclerae, moist conjunctiva, no lid-lag, PERRLA ENMT: NC/AT,Oropharynx clear, no erythema, exudates Neck:Supple, FROM, no masses, or JVD, No carotid bruits; No thyromegaly Lungs: Scattered rhonchi in the right middle to lower lung britton Cardiovascular: Heart regular in rate and rhythm, No murmurs, gallops, or rubs no peripheral edema Abdominal: Soft Nontender, nom distended, no guarding, no rebound or rigidity, Normoactive bowel sounds No hepatomegaly, No splenomegaly, No palpable mass No abdominal wall hernia noted Skin: Normal temperature, tone, texture, turgor, No induration No subcutaneous nodules, No rash, lesions, No ulcers Extremities:No digital cyanosis No clubbing, Pedal pulses intact and symmetrical Radial pulses intact and symmetrical Normal gait and station, No calf tenderness Psychiatric: Alert and oriented to person, place and time, Appropriate affect Intact judgement Neuro: Muscles Strength 5/5 in all 4 extremities, Sensation to light touch grossly present throughout, Cranial nerves II-XII grossly intact. No focal sensory deficits - Labs CBC & Chem 7: 10/29/18 08:57 10/29/18 08:57 Labs: Abnormal Lab Results - Last 24 Hours (Table) 10/28/18 10/28/18 10/28/18 Range/Units 10:23 11:43 16:52 RBC (3.80-5.40) m/uL Hgb (11.4-16.0) gm/dL Hct (34.0-46.0) % RDW (11.5-15.5) % Lymphocytes # (1.0-4.8) k/uL Sodium (137-145) mmol/L Potassium (3.5-5.1) mmol/L BUN (7-17) mg/dL Creatinine (0.52-1.04) mg/dL POC Glucose (mg/dL) 119 H 132 H (75-99) mg/dL Crossmatch See Detail 10/28/18 10/29/18 10/29/18 Range/Units 20:49 06:13 08:57 RBC 2.45 L (3.80-5.40) m/uL Hgb 7.7 L (11.4-16.0) gm/dL Hct 24.3 L (34.0-46.0) % RDW 16.8 H (11.5-15.5) % Lymphocytes # 0.3 L (1.0-4.8) k/uL Sodium (137-145) mmol/L Potassium (3.5-5.1) mmol/L BUN (7-17) mg/dL Creatinine (0.52-1.04) mg/dL POC Glucose (mg/dL) 155 H 171 H (75-99) mg/dL Crossmatch 10/29/18 Range/Units 08:57 RBC (3.80-5.40) m/uL Hgb (11.4-16.0) gm/dL Hct (34.0-46.0) % RDW (11.5-15.5) % Lymphocytes # (1.0-4.8) k/uL Sodium 135 L (137-145) mmol/L Potassium 5.2 H (3.5-5.1) mmol/L BUN 62 H (7-17) mg/dL Creatinine 3.43 H (0.52-1.04) mg/dL POC Glucose (mg/dL) (75-99) mg/dL Crossmatch Microbiology - Last 24 Hours (Table) 10/25/18 15:21 Blood Culture - Preliminary Blood No Growth after 72 hours 10/25/18 23:59 Gram Stain - Final Sputum Sputum Culture - Final Assessment and Plan Assessment: Sepsis -Continue with Levaquin and Zosyn -Follow chest x-ray until clear, repeat in AM -Bronchodilators -Sputum culture showing moderate respiratory elicia -Blood cultures no growth 48 hours Healthcare associated pneumonia with sepsis, possible gram-negative * Treatment as above Acute hypoxic respiratory failure secondary to above -Bronchodilators -Decreased O2 as able Chronic kidney disease stage IV -Creatinine up to 3.41 today.... Previously 2.1-2.5 -initiated on gentle IV fluid hydration NS @ 75 cc/hr Anemia, hx of Fe deficiency with infusion - follow CBC -Hemoglobin this morning 7.7, s/p 1 u prbcs 10/28 Compensated systolic congestive heart failure with ejection fraction 45-50% associated with severe mitral regurgitation -Continue with oral Lasix, metoprolol, not chronically on MI inhibitor secondary to kidney failure -Cardiology recs -Strict I's and O's, daily weights, 2 L fluid restriction, low sodium diet -Telemetry Chronic chest pain - troponin negative - cardio recs apprecited - ekg non ischemic Hypertension -Norvasc, hydralazine, metoprolol -Follow blood pressures Peripheral artery disease -Plavix -Consult cardiology GERD -H2 chau Diabetes mellitus type 2, had hypoglycemia over night -Sliding-scale insulin, Levemir 18 units -Hold glipizide -A1c 7.5 DVT prophylaxis: Heparin Discussed with: Patient, nursing, nephro Anticipated discharge date: [address]: home A total of 35 minutes was spent on the care of this complex patient more than 50% of the time was spent in counseling and care coordination.
[2018-10-29 11:53] LABS: Glucose,Whole Blood 116 mg/dL (75-99)
--- NOTE | 2018-10-29 14:40 | CONS ---
CONSULTATION DATE OF SERVICE: October 29, 2018 REASON FOR CONSULTATION: Shortness of breath is the reason. HISTORY OF PRESENT ILLNESS: This is a 48-year-old female well known to me. I saw her earlier this month with an episode of shortness of breath that was multifactorial in part related to underlying CHF and COPD exacerbation. I did not think at that time she had an active infection. She presented to the emergency room on October 25 complaining of fever, cough and shortness of breath. She has a previous history of multiple admissions for pneumonia. She has also got a history of multiple other medical problems including CVA, diabetes, hyperlipidemia, hypertension, valvular heart disease, peripheral vascular disease, amongst other things. Anyway, she was admitted back on the . She states that since she has been here, she feels no better than when she first came in. In fact, she apparently feels worse. The patient's complaints include chest congestion, cough, wheezing without phlegm production. As I mentioned, the patient does feel worse. Her most recent x-rays showed what appears to be developing right lower lobe infiltrate. No chest pain or chest discomfort. No nausea, vomiting or diarrhea. She tells me she is not smoking anymore. She had been smoking pretty heavily up to this point. MEDICATIONS: Reviewed. They include Plavix, vitamin D2, iron, Claritin, Lamictal, Ventolin, Lipitor, Celexa, Pepcid, Norvasc, Ventolin, updrafts, hydralazine, insulin, allopurinol, metoprolol, Incruse, Chantix, Glucotrol, Imdur and Lasix. ALLERGIES: Include PENICILLIN and BEE VENOM. MEDICAL HISTORY: Positive for CHF, COPD, CVA, diabetes, hyperlipidemia, hypertension, peripheral vascular disease, valvular heart disease, mitral regurgitation, diabetes mellitus, chronic myelocytic leukemia among other things. SURGICAL HISTORY: Includes appendectomy, bowel resection, orthopedic procedures, tubal ligation, rotator cuff repair, previous colostomy with reversal and history of bifemoral bypass surgery. She has also had a colonoscopy. SOCIAL HISTORY: Positive for previous heavy tobacco use. She states she did quit smoking. Interestingly, she is still on Chantix. She does have a previous history of marijuana use. Denies any alcohol use or any other illicit drug use. FAMILY HISTORY: Positive for mother with heart failure, diabetes, a brother with previous bypass grafting and a sister with previous CVA/TIA. 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 REVIEW OF SYSTEMS: CONSTITUTIONAL: Negative. NEUROLOGIC negative. HEENT negative. CARDIOVASCULAR negative. PULMONARY: Shortness of breath, chest congestion, coughing, wheezing, chest tightness, minimal phlegm production. GI negative. negative. RHEUMATOLOGIC negative. IMMUNOLOGIC negative. ENDOCRINOLOGICAL: Negative. HEMATOLOGIC negative. DERMATOLOGIC negative. PHYSICAL EXAMINATION: VITAL SIGNS: Current vital signs are reviewed. Temperature 97.6. Heart rate 69, respiratory rate 18, blood pressure 116/57 mean 76, 10 L high flow saturations are 97%. GENERAL: She appears mildly tachypneic. Mild conversational dyspnea. No audible wheezing. No use of accessory muscles. HEENT examination is grossly unremarkable. Mucous membranes are moist. No oral lesions. NECK: Supple. Full range of motion. No adenopathy or thyromegaly. Neck veins are flat. CARDIOVASCULAR examination reveals regular rhythm and rate. Heart rate about 72 beats per minute. Heart sounds are distant. S1, S2 normal. No distinct murmur noted. LUNGS: Reveal diffuse coarse rhonchi and wheezes. Breath sounds are diminished. A few scattered crackles. Breath sounds are equal bilaterally. ABDOMEN: Soft. Bowel sounds are heard. EXTREMITIES are intact. Minimal edema. Skin without rash. NEUROLOGIC examination is brief but nonfocal. Most recent chest x-ray dated October 28 shows developing infiltrate right lower lobe. LABS: Reviewed. White count 6.5, hemoglobin 7.7, hematocrit 24.3, platelet count 119,000. BUN and creatinine were 62 and 3.43. Sodium 135, potassium 5.2, chloride 102, CO2 22, anion gap is 11. Her N terminal proBNP is quite elevated at 12,400. Microbiologic studies are negative. Chest x-rays reviewed. Medications are reviewed. ASSESSMENT: 1. Chronic obstructive pulmonary disease exacerbation complicated by right lower lobe pneumonia. 2. History of congestive heart failure, with ongoing fluid overload, although improved. 3. Previous history of heavy tobacco use. 4. Stage 4 chronic kidney disease. 5. History of congestive heart failure. 6. History of cerebrovascular accident. 7. Diabetes mellitus. 8. Hyperlipidemia. 9. History of hypertension. 10.Valvular heart disease and with a history of mitral regurgitation. 11.Peripheral vascular occlusive disease. 12.History of chronic myelocytic leukemia. 13.Multiple previous surgeries. PLAN: The patient's medications will be reviewed. We will repeat a chest x-ray in the morning. Additional recommendations and suggestions are forthcoming. We will make sure she is on appropriate bronchodilators and steroids. We will make sure that antibiotics are appropriate for her. We will continue to follow. Prognosis is guarded given her multiple previous admissions. In fact, I just saw her on October 09. MMODL / IJN: [id number] /
[2018-10-29 17:01] LABS: Glucose,Whole Blood 186 mg/dL (75-99)
[2018-10-29] MEDS: methylPREDNISolone SOD SUCCI 125 MG/2 ML VIAL IV SCH (17:34)
[2018-10-29] MEDS: LEVOFLOXACIN 750 MG TAB PO SCH (17:35)
[2018-10-29] MEDS: FORMOTEROL FUMARATE 20 MCG/2 ML NEBU INHALATION SCH (20:08)
[2018-10-29] MEDS: ATORVASTATIN 80 MG TAB PO SCH (20:40)
[2018-10-29] MEDS: METOPROLOL SUCCINATE (ER) 100 MG TAB.ER.24H PO SCH (20:41)
[2018-10-29 20:57] LABS: Glucose,Whole Blood 261 mg/dL (75-99)
[2018-10-30] MEDS: HEPARIN SODIUM,PORCINE 5,000 UNIT/ML 1 ML VIAL SQ SCH ×4 (00:42→23:38)
[2018-10-30] MEDS: methylPREDNISolone SOD SUCCI 125 MG/2 ML VIAL IV SCH ×5 (00:42→23:38)
[2018-10-30] MEDS: INSULIN DETEMIR (LEVEMIR) 100 UNIT/ML SYR SQ SCH (00:43)
[2018-10-30 00:48] LABS: Glucose,Whole Blood 359 mg/dL (75-99)
[2018-10-30] MEDS: MELATONIN 3 MG TABLET PO PRN ×2 (01:20→21:11)
[2018-10-30] MEDS: HYDROcodone/APAP 5-325MG 1 EACH TAB PO PRN (01:20)
[2018-10-30] MEDS: SODIUM CHLORIDE 0.9% 1,000 ML IV SCH ×2 (05:23→21:04)
[2018-10-30 06:02] LABS: Glucose,Whole Blood 393 mg/dL (75-99)
[2018-10-30 06:49] LABS: Anisocytosis Slight; Basophils % (A) 0 %; Eosinophils % (A) 1 %; HCT 23.8 % (34.0-46.0); HGB 7.4 gm/dL (11.4-16.0); Hypochromasia Slight; Lymphocytes # (A) 0.3 k/uL (1.0-4.8); Lymphocytes % (A) 10 %; MCH 30.7 pg (25.0-35.0); MCHC 31.2 g/dL (31.0-37.0); MCV 98.5 fL (80.0-100.0); Macrocytosis Slight; Mean Platelet Volume 8.4; Monocytes % (A) 2 %; Neutrophils # (A) 2.5 k/uL (1.3-7.7); Neutrophils % (A) 85 %; Platelet Count 210 k/uL (150-450); RBC 2.41 m/uL (3.80-5.40); RDW 16.7 % (11.5-15.5); WBC 2.9 k/uL (3.8-10.6)
[2018-10-30 06:57] LABS: Calcium 8.4 mg/dL (8.4-10.2); Potassium 5.3 mmol/L (3.5-5.1)
[2018-10-30] MEDS: INSULIN ASPART (NovoLOG) 100 UNIT/ML VIAL SQ SCH ×3 (07:02→17:38)
[2018-10-30] MEDS: IPRATROPIUM-ALBUTEROL 3 ML NEB INHALATION SCH ×4 (07:57→20:48)
[2018-10-30] MEDS: BUDESONIDE 1 MG/2 ML NEBU INHALATION SCH ×2 (07:57→20:48)
[2018-10-30] MEDS: FORMOTEROL FUMARATE 20 MCG/2 ML NEBU INHALATION SCH ×2 (07:57→20:48)
[2018-10-30] MEDS: ISOSORBIDE MONONITRATE ER 60 MG TAB.ER.24H PO SCH (08:39)
[2018-10-30] MEDS: FERROUS SULFATE 325 MG TAB PO SCH (08:39)
[2018-10-30] MEDS: lamoTRIgine 25 MG TAB PO SCH ×2 (08:39→21:11)
[2018-10-30] MEDS: guaiFENesin 600 MG TABLET.ER PO SCH ×2 (08:39→21:06)
[2018-10-30] MEDS: CLOPIDOGREL 75 MG TAB PO SCH (08:39)
[2018-10-30] MEDS: hydrALAZINE HCL 25 MG TAB PO SCH ×2 (08:39→21:06)
[2018-10-30] MEDS: SODIUM FERRIC GLUCONAT-SUCROSE 125 MG in SODIUM CHLORIDE 0.9% 100 ML IVPB SCH (08:39)
[2018-10-30] MEDS: FAMOTIDINE 20 MG TAB PO SCH (08:39)
[2018-10-30] MEDS: LORATADINE 10 MG TAB PO SCH (08:39)
[2018-10-30] MEDS: ALLOPURINOL 100 MG TAB PO SCH (08:40)
[2018-10-30] MEDS: amLODIPine 10 MG TAB PO SCH (08:40)
[2018-10-30] MEDS: CITALOPRAM HYDROBROMIDE 20 MG TAB PO SCH (08:40)
[2018-10-30] MEDS: VARENICLINE 1 MG TAB PO SCH ×2 (08:44→21:06)
--- NOTE | 2018-10-30 09:30 | P.PN ---
Subjective Progress Note Date: 10/30/18 Seen and examined for the follow-up of acute kidney injury on chronic kidney disease. No nausea vomiting diarrhea. Still requiring oxygen. Bladder scan very minimal less than 25 ML's. Objective - Vital Signs Vital signs: Vital Signs Temp 97.1 F L 10/30/18 08:47 Pulse 71 10/30/18 08:47 Resp 16 10/30/18 08:47 BP 129/62 10/30/18 08:47 Pulse Ox 99 10/30/18 08:47 Intake & Output 10/29/18 10/30/18 10/30/18 18:59 06:59 18:59 Intake Total 200 Output Total 250 300 11 Balance -250 -100 -11 Weight 75.7 kg Intake: Oral 200 Output: Urine 250 300 Post Void Residual 11 Other: Voiding Method Toilet Toilet # Voids 0 1 - Exam No acute distress S1-S2 heard Decreased breath sounds No edema - Labs CBC & Chem 7: 10/30/18 06:12 10/30/18 06:12 Labs: Abnormal Lab Results - Last 24 Hours (Table) 10/28/18 10/29/18 10/29/18 Range/Units 10:23 08:57 11:51 WBC (3.8-10.6) k/uL RBC (3.80-5.40) m/uL Hgb (11.4-16.0) gm/dL Hct (34.0-46.0) % RDW (11.5-15.5) % Lymphocytes # (1.0-4.8) k/uL Sodium 135 L (137-145) mmol/L Potassium 5.2 H (3.5-5.1) mmol/L Carbon Dioxide (22-30) mmol/L BUN 62 H (7-17) mg/dL Creatinine 3.43 H (0.52-1.04) mg/dL Glucose (74-99) mg/dL POC Glucose (mg/dL) 116 H (75-99) mg/dL Crossmatch See Detail 10/29/18 10/29/18 10/30/18 Range/Units 16:59 20:55 00:46 WBC (3.8-10.6) k/uL RBC (3.80-5.40) m/uL Hgb (11.4-16.0) gm/dL Hct (34.0-46.0) % RDW (11.5-15.5) % Lymphocytes # (1.0-4.8) k/uL Sodium (137-145) mmol/L Potassium (3.5-5.1) mmol/L Carbon Dioxide (22-30) mmol/L BUN (7-17) mg/dL Creatinine (0.52-1.04) mg/dL Glucose (74-99) mg/dL POC Glucose (mg/dL) 186 H 261 H 359 H (75-99) mg/dL Crossmatch 10/30/18 10/30/18 10/30/18 Range/Units 06:01 06:12 06:12 WBC 2.9 L (3.8-10.6) k/uL RBC 2.41 L (3.80-5.40) m/uL Hgb 7.4 L (11.4-16.0) gm/dL Hct 23.8 L (34.0-46.0) % RDW 16.7 H (11.5-15.5) % Lymphocytes # 0.3 L (1.0-4.8) k/uL Sodium 133 L (137-145) mmol/L Potassium 5.3 H (3.5-5.1) mmol/L Carbon Dioxide 20 L (22-30) mmol/L BUN 73 H (7-17) mg/dL Creatinine 3.89 H (0.52-1.04) mg/dL Glucose 343 H (74-99) mg/dL POC Glucose (mg/dL) 393 H (75-99) mg/dL Crossmatch Microbiology - Last 24 Hours (Table) 10/25/18 15:21 Blood Culture - Preliminary Blood No Growth after 96 hours Assessment and Plan Assessment: #1 acute kidney injury secondary to over diuresis. Creatinine creeping. #2 chronic kidney disease stage IV secondary to diabetic kidney disease baseline creatinine 2.1-2.5 MG per DL. #3 diastolic CHF with EF of 45% #4 right lower lobe pneumonia #5 metabolic acidosis #6 anemia with chronic kidney disease Plan: #1 diuretics were stopped yesterday. And started on IV fluids at 75 ML's an hour. #2 creatinine continue to worsen. No uremic signs and symptoms at this time. #3 avoid nephrotoxic agents and hypotensive episodes. #4 maintain hemoglobin more than 8 #5 repeat labs in the morning. Repeat urine analysis.
--- NOTE | 2018-10-30 09:44 | P.PN ---
Subjective Progress Note Date: 10/30/18 Principal diagnosis: Patient is a 48-year-old female with a past medical history of systolic congestive heart failure with left ventricular ejection fraction 45- 50%, chronic kidney disease stage IV, chronic anemia, diabetes, and COPD who presented to the hospital with complaints of fever and shortness of breath. In the ER she underwent an extensive evaluation. On arrival she was found to have a fever of 102.4. Initial laboratory analysis showed a white blood cell count of 12.3, hemoglobin 7.4 which is chronic for her, BUN 54, and creatinine 2.4. He was also found to be hyperglycemic with a glucose of 291. Urinalysis and influenza negative. Chest x-ray shows right lower lobe pneumonia. She was started on IV fluids, Zosyn, and Levaquin. Arrangements were made for admission. Cardiology and nephrology were consulted. No immediate plans for cardiac catheterization. the patient seen and examined at bedside, reporting shortness of breath, reports her cough is loosening up a bit since starting Mucinex, complaining of nausea this morning. Hemoglobin up to 7.7, Creatinine up to 3.43 today, patient has been on home dose of Lasix 60 mg PO BID. chest x-ray 10/28 showing stable medial basilar infiltrate with trace right effusion. Has been afebrile f or over 48 hours Objective - Vital Signs Vital signs: Vital Signs Temp 97.1 F L 10/30/18 08:47 Pulse 71 10/30/18 08:47 Resp 16 10/30/18 08:47 BP 129/62 10/30/18 08:47 Pulse Ox 99 10/30/18 08:47 Intake & Output 10/29/18 10/30/18 10/30/18 18:59 06:59 18:59 Intake Total 200 Output Total 250 300 11 Balance -250 -100 -11 Weight 75.7 kg Intake: Oral 200 Output: Urine 250 300 Post Void Residual 11 Other: Voiding Method Toilet Toilet # Voids 0 1 - Exam Constitutional: No acute distress, conversant, pleasant Eyes: Anicteric sclerae, moist conjunctiva, no lid-lag, PERRLA ENMT: NC/AT,Oropharynx clear, no erythema, exudates Neck:Supple, FROM, no masses, or JVD, No carotid bruits; No thyromegaly Lungs: Scattered rhonchi in the right middle to lower lung britton Cardiovascular: Heart regular in rate and rhythm, No murmurs, gallops, or rubs no peripheral edema Abdominal: Soft Nontender, nom distended, no guarding, no rebound or rigidity, Normoactive bowel sounds No hepatomegaly, No splenomegaly, No palpable mass No abdominal wall hernia noted Skin: Normal temperature, tone, texture, turgor, No induration No subcutaneous nodules, No rash, lesions, No ulcers Extremities:No digital cyanosis No clubbing, Pedal pulses intact and symmetrical Radial pulses intact and symmetrical Normal gait and station, No calf tenderness Psychiatric: Alert and oriented to person, place and time, Appropriate affect Intact judgement Neuro: Muscles Strength 5/5 in all 4 extremities, Sensation to light touch sherlyn sly present throughout, Cranial nerves II-XII grossly intact. No focal sensory deficits - Labs CBC & Chem 7: 10/30/18 06:12 10/30/18 06:12 Labs: Abnormal Lab Results - Last 24 Hours (Table) 10/28/18 10/29/18 10/29/18 Range/Units 10:23 11:51 16:59 WBC (3.8-10.6) k/uL RBC (3.80-5.40) m/uL Hgb (11.4-16.0) gm/dL Hct (34.0-46.0) % RDW (11.5-15.5) % Lymphocytes # (1.0-4.8) k/uL Sodium (137-145) mmol/L Potassium (3.5-5.1) mmol/L Carbon Dioxide (22-30) mmol/L BUN (7-17) mg/dL Creatinine (0.52-1.04) mg/dL Glucose (74-99) mg/dL POC Glucose (mg/dL) 116 H 186 H (75-99) mg/dL Crossmatch See Detail 10/29/18 10/30/18 10/30/18 Range/Units 20:55 00:46 06:01 WBC (3.8-10.6) k/uL RBC (3.80-5.40) m/uL Hgb (11.4-16.0) gm/dL Hct (34.0-46.0) % RDW (11.5-15.5) % Lymphocytes # (1.0-4.8) k/uL Sodium (137-145) mmol/L Potassium (3.5-5.1) mmol/L Carbon Dioxide (22-30) mmol/L BUN (7-17) mg/dL Creatinine (0.52-1.04) mg/dL Glucose (74-99) mg/dL POC Glucose (mg/dL) 261 H 359 H 393 H (75-99) mg/dL Crossmatch 10/30/18 10/30/18 Range/Units 06:12 06:12 WBC 2.9 L (3.8-10.6) k/uL RBC 2.41 L (3.80-5.40) m/uL Hgb 7.4 L (11.4-16.0) gm/dL Hct 23.8 L (34.0-46.0) % RDW 16.7 H (11.5-15.5) % Lymphocytes # 0.3 L (1.0-4.8) k/uL Sodium 133 L (137-145) mmol/L Potassium 5.3 H (3.5-5.1) mmol/L Carbon Dioxide 20 L (22-30) mmol/L BUN 73 H (7-17) mg/dL Creatinine 3.89 H (0.52-1.04) mg/dL Glucose 343 H (74-99) mg/dL POC Glucose (mg/dL) (75-99) mg/dL Crossmatch Microbiology - Last 24 Hours (Table) 10/25/18 15:21 Blood Culture - Preliminary Blood No Growth after 96 hours Assessment and Plan Assessment: Sepsis -Continue with Levaquin and d/c Zosyn -Bronchodilators -Sputum culture showing moderate respiratory elicia -Blood cultures no growth 48 hours Healthcare associated pneumonia with sepsis, possible gram-negative * Treatment as above Acute hypoxic respiratory failure secondary to above superimposed on COPD exacerbation -Bronchodilators -Decreased O2 as able -Appreciate pulmonary recommendations continue with systemic steroids NED superimposed on Chronic kidney disease stage IV -Creatinine up to 3.89 today.... Previously 2.1-2.5 -initiated on gentle IV fluid hydration NS @ 75 cc/hr Anemia, hx of Fe deficiency with infusion - follow CBC -Hemoglobin this morning 7.4, s/p 1 u prbcs 10/28 Compensated systolic congestive heart failure with ejection fraction 45-50% associated with severe mitral regurgitation -Continue with oral Lasix, metoprolol, not chronically on MI inhibitor secondary to kidney failure -Cardiology recs -Strict I's and O's, daily weights, 2 L fluid restriction, low sodium diet -Telemetry Chronic chest pain - troponin negative - cardio recs apprecited - ekg non ischemic Hypertension -Norvasc, hydralazine, metoprolol -Follow blood pressures Peripheral artery disease -Plavix -Consult cardiology GERD -H2 chau Diabetes mellitus type 2, with steroid-induced hyperglycemia -Sliding-scale insulin, Levemir 18 units -Hold glipizide -A1c 7.5 DVT prophylaxis: Heparin Discussed with: Patient, nursing, nephro Anticipated discharge date: [address]: home A total of 35 minutes was spent on the care of this complex patient more than 50% of the time was spent in counseling and care coordination.
[2018-10-30] MEDS: PIPERACILLIN-TAZOBACTAM 3.375 GM in SODIUM CHLORIDE 0.9% 100 ML IVPB SCH (09:58)
--- NOTE | 2018-10-30 12:13 | P.PN ---
Subjective Progress Note Date: 10/30/18 Principal diagnosis: Acute exacerbation of chronic obstructive pulmonary disease complicated by right lower lobe pneumonia and acute exacerbation of congestive heart failure. On 10/30/2018 patient seen in follow-up on selective care unit, awake and alert, in no acute distress, she is currently on 6 L per high flow nasal cannula, and her pulse ox 100%, this can probably be weaned down further. Since her breathing is improving, denies any worsening shortness of breath or chest pain, she is afebrile, hemodynamically stable, she is on Levaquin for antibiotic coverage, blood urine and sputum cultures are negative. His labs have been reviewed, showing white blood cell count is down to 2.9, hemoglobin of 7.4, serum sodium is 133, potassium is 5.3, chloride is 101, CO2 is 20, creatinine is 3.89, and B1 is 73. Her BNP is 12,400. The nausea or diarrhea, nephrology is following, her diuretics have been discontinued yesterday, there has been increase in her renal profile, patient is actually receiving IV hydration, at 75 ML per hour. Objective - Vital Signs Vital signs: Vital Signs Temp 97.6 F 10/30/18 11:24 Pulse 70 10/30/18 11:50 Resp 18 10/30/18 11:50 BP 136/65 10/30/18 11:24 Pulse Ox 100 10/30/18 11:24 Intake & Output 10/29/18 10/30/18 10/30/18 18:59 06:59 18:59 Intake Total 200 Output Total 250 300 11 Balance -250 -100 -11 Weight 75.7 kg Intake: Oral 200 Output: Urine 250 300 Post Void Residual 11 Other: Voiding Method Toilet Toilet # Voids 0 1 - Exam GENERAL EXAM: Alert, pleasant, 48-year-old white female, on 6 L of oxygen, with a pulsatile 100% comfortable in no apparent distress. HEAD: Normocephalic/atraumatic. EYES: Normal reaction of pupils, equal size. Conjunctiva pink, sclera white. NOSE: Clear with pink turbinates. THROAT: No erythema or exudates. NECK: No masses, no JVD, no thyroid enlargement, no adenopathy. CHEST: No chest wall deformity. Symmetrical expansion. LUNGS: Equal air entry with image breath sounds bilaterally, lung sounds are coarse, but no significant congestion CVS: Regular rate and rhythm, normal S1 and S2, no gallops, no murmurs, no rubs ABDOMEN: Soft, nontender. No hepatosplenomegaly, normal bowel sounds, no guarding or rigidity. EXTREMITIES: No clubbing, no edema, no cyanosis, 2+ pulses and upper and lower extremities. MUSCULOSKELETAL: Muscle strength and tone normal. SPINE: No scoliosis or deformity SKIN: No rashes CENTRAL NERVOUS SYSTEM: Alert and oriented -3. No focal deficits, tone is normal in all 4 extremities. PSYCHIATRIC: Alert and oriented -3. Appropriate affect. Intact judgment and insight. - Labs CBC & Chem 7: 10/30/18 06:12 10/30/18 06:12 Labs: Abnormal Lab Results - Last 24 Hours (Table) 10/28/18 10/29/18 10/29/18 Range/Units 10:23 16:59 20:55 WBC (3.8-10.6) k/uL RBC (3.80-5.40) m/uL Hgb (11.4-16.0) gm/dL Hct (34.0-46.0) % RDW (11.5-15.5) % Lymphocytes # (1.0-4.8) k/uL Sodium (137-145) mmol/L Potassium (3.5-5.1) mmol/L Carbon Dioxide (22-30) mmol/L BUN (7-17) mg/dL Creatinine (0.52-1.04) mg/dL Glucose (74-99) mg/dL POC Glucose (mg/dL) 186 H 261 H (75-99) mg/dL Crossmatch See Detail 10/30/18 10/30/18 10/30/18 Range/Units 00:46 06:01 06:12 WBC (3.8-10.6) k/uL RBC (3.80-5.40) m/uL Hgb (11.4-16.0) gm/dL Hct (34.0-46.0) % RDW (11.5-15.5) % Lymphocytes # (1.0-4.8) k/uL Sodium 133 L (137-145) mmol/L Potassium 5.3 H (3.5-5.1) mmol/L Carbon Dioxide 20 L (22-30) mmol/L BUN 73 H (7-17) mg/dL Creatinine 3.89 H (0.52-1.04) mg/dL Glucose 343 H (74-99) mg/dL POC Glucose (mg/dL) 359 H 393 H (75-99) mg/dL Crossmatch 10/30/18 Range/Units 06:12 WBC 2.9 L (3.8-10.6) k/uL RBC 2.41 L (3.80-5.40) m/uL Hgb 7.4 L (11.4-16.0) gm/dL Hct 23.8 L (34.0-46.0) % RDW 16.7 H (11.5-15.5) % Lymphocytes # 0.3 L (1.0-4.8) k/uL Sodium (137-145) mmol/L Potassium (3.5-5.1) mmol/L Carbon Dioxide (22-30) mmol/L BUN (7-17) mg/dL Creatinine (0.52-1.04) mg/dL Glucose (74-99) mg/dL POC Glucose (mg/dL) (75-99) mg/dL Crossmatch Microbiology - Last 24 Hours (Table) 10/25/18 15:21 Blood Culture - Preliminary Blood No Growth after 96 hours Assessment and Plan Plan: Assessment #1. Acute exacerbation of chronic obstructive pulmonary disease complicated by right lower lobe pneumonia #2. Acute exacerbation of congestive heart failure with diastolic dysfunction #3. Chronic kidney disease stage IV #4. Acute kidney injury #5. History of severe peripheral vascular disease with prior fem-pop bypass #6. Hyperlipidemia #7. Diabetes #8. History of nicotine dependence #9. History of prior TIA #10. Chronic anemia Plan: We'll continue with current medical management, IV steroids, nebulized bronchodilators, antibiotics, likely biology date it remains negative thus far, patient is afebrile, she is breathing easier, continue with DuoNeb, Pulmicort and Perforomist. Continue weaning FiO2, encourage deep breathing and coughing. I performed a history & physical examination of the patient and discussed their management with my nurse practitioner, Caty Renner. I reviewed the nurse practitioner's note and agree with the documented findings and plan of care. Lung sounds are positive for . The findings and the impression was discussed with the patient. I attest to the documentation by the nurse practitioner. Time with Patient: Less than 30
[2018-10-30 12:37] LABS: Glucose,Whole Blood 406 mg/dL (75-99)
[2018-10-30] MEDS ORDERED: INSULIN DETEMIR (LEVEMIR) 100 UNIT/ML SYR SQ SCH (15:30)
[2018-10-30 17:13] LABS: Glucose,Whole Blood 367 mg/dL (75-99)
[2018-10-30] MEDS: ATORVASTATIN 80 MG TAB PO SCH (21:06)
[2018-10-30] MEDS: METOPROLOL SUCCINATE (ER) 100 MG TAB.ER.24H PO SCH (21:11)
[2018-10-30 21:39] LABS: Glucose,Whole Blood 468 mg/dL (75-99)
[2018-10-30] MEDS ORDERED: INSULIN REGULAR BOLUS (FROM DRIP BAG) IV ONE (22:06)
[2018-10-30] MEDS: INSULIN REGULAR 100 UNIT in SODIUM CHLORIDE 0.9% 100 ML IV SCH (23:13)
[2018-10-30 23:20] LABS: Glucose,Whole Blood 437 mg/dL (75-99)
[2018-10-30 23:33] LABS: Glucose,Whole Blood 370 mg/dL (75-99)
[2018-10-31 00:03] LABS: Glucose,Whole Blood 304 mg/dL (75-99)
[2018-10-31 00:58] LABS: Glucose,Whole Blood 226 mg/dL (75-99)
[2018-10-31 02:30] LABS: Glucose,Whole Blood 74 mg/dL (75-99)
[2018-10-31] MEDS: SODIUM CHLORIDE 0.9% 1,000 ML IV SCH ×2 (02:33→05:39)
[2018-10-31 02:40] LABS: Appearance,Urine Cloudy (Clear); Bilirubin,Urine Negative (Negative); Blood,Urine Trace (Negative); Color,Urine Yellow; Glucose,Urine (UA) Trace (Negative); Hyaline Casts,Urine 1 /lpf (0-2); Ketones,Urine Negative (Negative); Leukocyte Esterase,Urine Negative (Negative); Mucus,Urine Rare /hpf; Nitrite,Urine Negative (Negative); Protein,Urine 2+ (Negative); RBC,Urine <1 /hpf (0-5); Specific Gravity,Urine 1.016 (1.001-1.035); Squamous Epithelial Cell,Urine 6 /hpf (0-4); Urobilinogen,Urine <2.0 mg/dL (<2.0)
[2018-10-31 02:57] LABS: Glucose,Whole Blood 68 mg/dL (75-99)
[2018-10-31 03:31] LABS: Glucose,Whole Blood 88 mg/dL (75-99)
[2018-10-31 04:23] LABS: Glucose,Whole Blood 124 mg/dL (75-99)
[2018-10-31 05:33] LABS: Glucose,Whole Blood 151 mg/dL (75-99)
[2018-10-31] MEDS: methylPREDNISolone SOD SUCCI 125 MG/2 ML VIAL IV SCH ×2 (05:40→12:11)
[2018-10-31 07:27] LABS: Glucose,Whole Blood 158 mg/dL (75-99)
[2018-10-31] MEDS: HEPARIN SODIUM,PORCINE 5,000 UNIT/ML 1 ML VIAL SQ SCH ×3 (08:09→23:40)
[2018-10-31] MEDS: ALLOPURINOL 100 MG TAB PO SCH (08:10)
[2018-10-31] MEDS: CITALOPRAM HYDROBROMIDE 20 MG TAB PO SCH (08:10)
[2018-10-31] MEDS: hydrALAZINE HCL 25 MG TAB PO SCH ×2 (08:10→21:51)
[2018-10-31] MEDS: guaiFENesin 600 MG TABLET.ER PO SCH ×2 (08:10→21:51)
[2018-10-31] MEDS: INSULIN ASPART (NovoLOG) 100 UNIT/ML VIAL SQ SCH ×4 (08:10→18:02)
[2018-10-31] MEDS: amLODIPine 10 MG TAB PO SCH (08:10)
[2018-10-31] MEDS: ISOSORBIDE MONONITRATE ER 60 MG TAB.ER.24H PO SCH (08:10)
[2018-10-31] MEDS: VARENICLINE 1 MG TAB PO SCH ×2 (08:10→21:50)
[2018-10-31] MEDS: FAMOTIDINE 20 MG TAB PO SCH (08:11)
[2018-10-31] MEDS: FERROUS SULFATE 325 MG TAB PO SCH (08:11)
[2018-10-31] MEDS: CLOPIDOGREL 75 MG TAB PO SCH (08:11)
[2018-10-31] MEDS: LORATADINE 10 MG TAB PO SCH (08:11)
[2018-10-31] MEDS: BUDESONIDE 1 MG/2 ML NEBU INHALATION SCH ×2 (08:45→20:10)
[2018-10-31] MEDS: FORMOTEROL FUMARATE 20 MCG/2 ML NEBU INHALATION SCH ×2 (08:45→20:10)
[2018-10-31] MEDS: IPRATROPIUM-ALBUTEROL 3 ML NEB INHALATION SCH ×4 (08:45→20:10)
[2018-10-31 09:30] LABS: Glucose,Whole Blood 198 mg/dL (75-99)
[2018-10-31 09:34] LABS: Calcium 8.8 mg/dL (8.4-10.2); Potassium 4.5 mmol/L (3.5-5.1)
[2018-10-31] MEDS: lamoTRIgine 25 MG TAB PO SCH ×2 (09:41→21:59)
[2018-10-31 11:39] LABS: Glucose,Whole Blood 200 mg/dL (75-99)
--- NOTE | 2018-10-31 11:39 | P.PN ---
Subjective Progress Note Date: 10/31/18 Principal diagnosis: Patient is a 48-year-old female with a past medical history of systolic congestive heart failure with left ventricular ejection fraction 45- 50%, chronic kidney disease stage IV, chronic anemia, diabetes, and COPD who presented to the hospital with complaints of fever and shortness of breath. In the ER she underwent an extensive evaluation. On arrival she was found to have a fever of 102.4. Initial laboratory analysis showed a white blood cell count of 12.3, hemoglobin 7.4 which is chronic for her, BUN 54, and creatinine 2.4. He was also found to be hyperglycemic with a glucose of 291. Urinalysis and influenza negative. Chest x-ray shows right lower lobe pneumonia. She was started on IV fluids, Zosyn, and Levaquin. Arrangements were made for admission. Cardiology and nephrology were consulted. No immediate plans for cardiac catheterization. Patient seen and examined at bedside reporting she been up and ambulatory, reports that her breathing is improved been improving since starting steroids. No acute events overnight Objective - Vital Signs Vital signs: Vital Signs Temp 97.7 F 10/31/18 07:00 Pulse 82 10/31/18 09:06 Resp 16 10/31/18 07:00 BP 148/70 10/31/18 07:00 Pulse Ox 91 L 10/31/18 07:00 Intake & Output 10/30/18 10/31/18 10/31/18 18:59 06:59 18:59 Intake Total 39.845 2.054 Output Total 11 Balance -11 39.845 2.054 Intake: Intake, IV Titration 39.845 2.054 Amount Insulin Regular 100 unit 39.845 2.054 In Sodium Chloride 0.9% 100 ml @ Titrate IV .Q0M [facility] Rx#:[id number] Output: Post Void Residual 11 Other: Voiding Method Toilet Toilet # Voids 1 - Exam Constitutional: No acute distress, conversant, pleasant Eyes: Anicteric sclerae, moist conjunctiva, no lid-lag, PERRLA ENMT: NC/AT,Oropharynx clear, no erythema, exudates Neck:Supple, FROM, no masses, or JVD, No carotid bruits; No thyromegaly Lungs: Scattered rhonchi in the right middle to lower lung britton Cardiovascular: Heart regular in rate and rhythm, No murmurs, gallops, or rubs no peripheral edema Abdominal: Soft Nontender, nom distended, no guarding, no rebound or rigidity, Normoactive bowel sounds No hepatomegaly, No splenomegaly, No palpable mass No abdominal wall hernia noted Skin: Normal temperature, tone, texture, turgor, No induration No subcutaneous nodules, No rash, lesions, No ulcers Extremities:No digital cyanosis No clubbing, Pedal pulses intact and symmetrical Radial pulses intact and symmetrical Normal gait and station, No calf tenderness Psychiatric: Alert and oriented to person, place and time, Appropriate affect Intact judgement Neuro: Muscles Strength 5/5 in all 4 extremities, Sensation to light touch grossly present throughout, Cranial nerves II-XII grossly intact. No focal sensory deficits - Labs CBC & Chem 7: 10/30/18 06:12 10/31/18 09:02 Labs: Abnormal Lab Results - Last 24 Hours (Table) 10/30/18 10/30/18 10/30/18 Range/Units 12:06 17:09 21:38 POC Glucose (mg/dL) 406 H 367 H 468 H (75-99) mg/dL Urine Appearance (Clear) Urine Protein (Negative) Urine Glucose (UA) (Negative) Urine Blood (Negative) Ur Squamous Epith Cells (0-4) /hpf Urine Mucus (None) /hpf 10/30/18 10/30/18 10/31/18 Range/Units 23:00 23:32 00:02 POC Glucose (mg/dL) 437 H 370 H 304 H (75-99) mg/dL Urine Appearance (Clear) Urine Protein (Negative) Urine Glucose (UA) (Negative) Urine Blood (Negative) Ur Squamous Epith Cells (0-4) /hpf Urine Mucus (None) /hpf 10/31/18 10/31/18 10/31/18 Range/Units 00:38 02:10 02:29 POC Glucose (mg/dL) 226 H 74 L (75-99) mg/dL Urine Appearance Cloudy H (Clear) Urine Protein 2+ H (Negative) Urine Glucose (UA) Trace H (Negative) Urine Blood Trace H (Negative) Ur Squamous Epith Cells 6 H (0-4) /hpf Urine Mucus Rare H (None) /hpf 10/31/18 10/31/18 10/31/18 Range/Units 02:56 04:22 05:31 POC Glucose (mg/dL) 68 L 124 H 151 H (75-99) mg/dL Urine Appearance (Clear) Urine Protein (Negative) Urine Glucose (UA) (Negative) Urine Blood (Negative) Ur Squamous Epith Cells (0-4) /hpf Urine Mucus (None) /hpf 10/31/18 Range/Units 07:25 POC Glucose (mg/dL) 158 H (75-99) mg/dL Urine Appearance (Clear) Urine Protein (Negative) Urine Glucose (UA) (Negative) Urine Blood (Negative) Ur Squamous Epith Cells (0-4) /hpf Urine Mucus (None) /hpf Microbiology - Last 24 Hours (Table) 10/25/18 15:21 Blood Culture - Preliminary Blood No Growth after 120 hours Assessment and Plan Assessment: Sepsis -Continue with Levaquin and d/c Zosyn -Bronchodilators -Sputum culture showing moderate respiratory elicia -Blood cultures no growth 48 hours Healthcare associated pneumonia with sepsis, possible gram-negative * Treatment as above Acute hypoxic respiratory failure secondary to above superimposed on COPD exacerbation -Bronchodilators -Decreased O2 as able -Appreciate pulmonary recommendations continue with systemic steroids NED superimposed on Chronic kidney disease stage IV -Creatinine up to 3.93 today.... Previously 2.1-2.5 -initiated on gentle IV fluid hydration NS @ 75 cc/hr Anemia, hx of Fe deficiency with infusion - follow CBC -Hemoglobin this morning 7.4, s/p 1 u prbcs 10/28 Compensated systolic congestive heart failure with ejection fraction 45-50% associated with severe mitral regurgitation -Continue with oral Lasix, metoprolol, not chronically on MI inhibitor secondary to kidney failure -Cardiology recs -Strict I's and O's, daily weights, 2 L fluid restriction, low sodium diet -Telemetry Chronic chest pain - troponin negative - cardio recs apprecited - ekg non ischemic Hypertension -Norvasc, hydralazine, metoprolol -Follow blood pressures Peripheral artery disease -Plavix -Consult cardiology GERD -H2 chau Diabetes mellitus type 2, with steroid-induced hyperglycemia -Sliding-scale insulin, Levemir 18 units -Hold glipizide -A1c 7.5 DVT prophylaxis: Heparin Discussed with: Patient, nursing, nephro Anticipated discharge date: [address]: home A total of 35 minutes was spent on the care of this complex patient more than 50% of the time was spent in counseling and care coordination.
[2018-10-31 12:56] LABS: Hemoglobin A1C 7.7 % (4.0-6.0)
[2018-10-31] MEDS: INSULIN REGULAR 100 UNIT in SODIUM CHLORIDE 0.9% 100 ML IV SCH (13:30)
[2018-10-31 13:50] LABS: Glucose,Whole Blood 199 mg/dL (75-99)
[2018-10-31 15:54] LABS: Glucose,Whole Blood 215 mg/dL (75-99)
[2018-10-31] MEDS: INSULIN DETEMIR (LEVEMIR) 100 UNIT/ML SYR SQ SCH (15:59)
[2018-10-31] MEDS ORDERED: INSULIN REGULAR 100 UNIT in SODIUM CHLORIDE 0.9% 100 ML IV SCH (16:15)
--- NOTE | 2018-10-31 16:43 | P.PN ---
Subjective Progress Note Date: 10/31/18 Principal diagnosis: Acute exacerbation of chronic obstructive pulmonary disease complicated by right lower lobe pneumonia and acute exacerbation of congestive heart failure. On 10/30/2018 patient seen in follow-up on selective care unit, awake and alert, in no acute distress, she is currently on 6 L per high flow nasal cannula, and her pulse ox 100%, this can probably be weaned down further. Since her breathing is improving, denies any worsening shortness of breath or chest pain, she is afebrile, hemodynamically stable, she is on Levaquin for antibiotic coverage, blood urine and sputum cultures are negative. His labs have been reviewed, showing white blood cell count is down to 2.9, hemoglobin of 7.4, serum sodium is 133, potassium is 5.3, chloride is 101, CO2 is 20, creatinine is 3.89, and B1 is 73. Her BNP is 12,400. The nausea or diarrhea, nephrology is following, her diuretics have been discontinued yesterday, there has been increase in her renal profile, patient is actually receiving IV hydration, at 75 ML per hour. On 10/31/2018 patient seen in follow-up on medical surgical floor. She is awake and alert, currently on 3 L of oxygen with a pulse ox of 98%, this can probably be weaned down further, earlier patient was satting 90% on room air, subse quently did get short of breath and desatted, was placed back on supplement oxygen, afebrile, hemodynamically stable, lung sounds reveal coarse crackles bilaterally at the bases, no significant wheezes or congestion. Continues on IV Solu-Medrol 60 mg every 6 hours, and patient is requiring insulin infusion for steroid-induced hyperglycemia currently at 2 units per hour. Lasix remains on hold, and patient is receiving gentle IV hydration for worsening acute kidney, his labs showing BUN of 91, and creatinine of 3.93, potassium is 4.5. Appetite is improving, no nausea vomiting or diarrhea. She is nonoliguric. Blood urine and sputum cultures are negative. Objective - Vital Signs Vital signs: Vital Signs Temp 97.9 F 10/31/18 14:06 Pulse 73 10/31/18 16:20 Resp 16 10/31/18 16:20 BP 154/66 10/31/18 14:06 Pulse Ox 98 10/31/18 16:20 Intake & Output 10/30/18 10/31/18 10/31/18 18:59 06:59 18:59 Intake Total 39.845 217.654 Output Total 11 72 Balance -11 39.845 145.654 Intake: Intake, IV Titration 39.845 17.654 Amount Insulin Regular 100 unit 39.845 17.654 In Sodium Chloride 0.9% 100 ml @ Titrate IV .Q0M [facility] Rx#:[id number] Oral 200 Output: Post Void Residual 11 72 Other: Voiding Method Toilet Toilet # Voids 1 2 - Exam GENERAL EXAM: Alert, pleasant, 48-year-old white female, on 3 L of oxygen, with a pulse ox 98% comfortable in no apparent distress. HEAD: Normocephalic/atraumatic. EYES: Normal reaction of pupils, equal size. Conjunctiva pink, sclera white. NOSE: Clear with pink turbinates. THROAT: No erythema or exudates. NECK: No masses, no JVD, no thyroid enlargement, no adenopathy. CHEST: No chest wall deformity. Symmetrical expansion. LUNGS: Equal air entry with image breath sounds bilaterally, lung sounds are coarse inspiratory crackles., but no significant congestion CVS: Regular rate and rhythm, normal S1 and S2, no gallops, no murmurs, no rubs ABDOMEN: Soft, nontender. No hepatosplenomegaly, normal bowel sounds, no guarding or rigidity. EXTREMITIES: No clubbing, no edema, no cyanosis, 2+ pulses and upper and lower extremities. MUSCULOSKELETAL: Muscle strength and tone normal. SPINE: No scoliosis or deformity SKIN: No rashes CENTRAL NERVOUS SYSTEM: Alert and oriented -3. No focal deficits, tone is normal in all 4 extremities. PSYCHIATRIC: Alert and oriented -3. Appropriate affect. Intact judgment and insight. - Labs CBC & Chem 7: 10/30/18 06:12 10/31/18 09:02 Labs: Abnormal Lab Results - Last 24 Hours (Table) 10/30/18 10/30/18 10/30/18 Range/Units 06:12 17:09 21:38 Carbon Dioxide (22-30) mmol/L BUN (7-17) mg/dL Creatinine (0.52-1.04) mg/dL Glucose (74-99) mg/dL POC Glucose (mg/dL) 367 H 468 H (75-99) mg/dL Hemoglobin A1c 7.7 H (4.0-6.0) % Urine Appearance (Clear) Urine Protein (Negative) Urine Glucose (UA) (Negative) Urine Blood (Negative) Ur Squamous Epith Cells (0-4) /hpf Urine Mucus (None) /hpf 10/30/18 10/30/18 10/31/18 Range/Units 23:00 23:32 00:02 Carbon Dioxide (22-30) mmol/L BUN (7-17) mg/dL Creatinine (0.52-1.04) mg/dL Glucose (74-99) mg/dL POC Glucose (mg/dL) 437 H 370 H 304 H (75-99) mg/dL Hemoglobin A1c (4.0-6.0) % Urine Appearance (Clear) Urine Protein (Negative) Urine Glucose (UA) (Negative) Urine Blood (Negative) Ur Squamous Epith Cells (0-4) /hpf Urine Mucus (None) /hpf 10/31/18 10/31/18 10/31/18 Range/Units 00:38 02:10 02:29 Carbon Dioxide (22-30) mmol/L BUN (7-17) mg/dL Creatinine (0.52-1.04) mg/dL Glucose (74-99) mg/dL POC Glucose (mg/dL) 226 H 74 L (75-99) mg/dL Hemoglobin A1c (4.0-6.0) % Urine Appearance Cloudy H (Clear) Urine Protein 2+ H (Negative) Urine Glucose (UA) Trace H (Negative) Urine Blood Trace H (Negative) Ur Squamous Epith Cells 6 H (0-4) /hpf Urine Mucus Rare H (None) /hpf 10/31/18 10/31/18 10/31/18 Range/Units 02:56 04:22 05:31 Carbon Dioxide (22-30) mmol/L BUN (7-17) mg/dL Creatinine (0.52-1.04) mg/dL Glucose (74-99) mg/dL POC Glucose (mg/dL) 68 L 124 H 151 H (75-99) mg/dL Hemoglobin A1c (4.0-6.0) % Urine Appearance (Clear) Urine Protein (Negative) Urine Glucose (UA) (Negative) Urine Blood (Negative) Ur Squamous Epith Cells (0-4) /hpf Urine Mucus (None) /hpf 10/31/18 10/31/18 10/31/18 Range/Units 07:25 09:02 09:27 Carbon Dioxide 20 L (22-30) mmol/L BUN 91 H (7-17) mg/dL Creatinine 3.93 H (0.52-1.04) mg/dL Glucose 156 H (74-99) mg/dL POC Glucose (mg/dL) 158 H 198 H (75-99) mg/dL Hemoglobin A1c (4.0-6.0) % Urine Appearance (Clear) Urine Protein (Negative) Urine Glucose (UA) (Negative) Urine Blood (Negative) Ur Squamous Epith Cells (0-4) /hpf Urine Mucus (None) /hpf 10/31/18 10/31/18 10/31/18 Range/Units 11:34 13:37 15:52 Carbon Dioxide (22-30) mmol/L BUN (7-17) mg/dL Creatinine (0.52-1.04) mg/dL Glucose (74-99) mg/dL POC Glucose (mg/dL) 200 H 199 H 215 H (75-99) mg/dL Hemoglobin A1c (4.0-6.0) % Urine Appearance (Clear) Urine Protein (Negative) Urine Glucose (UA) (Negative) Urine Blood (Negative) Ur Squamous Epith Cells (0-4) /hpf Urine Mucus (None) /hpf Microbiology - Last 24 Hours (Table) 10/25/18 15:21 Blood Culture - Preliminary Blood No Growth after 120 hours Assessment and Plan Plan: Assessment #1. Acute exacerbation of chronic obstructive pulmonary disease complicated by right lower lobe pneumonia #2. Acute exacerbation of congestive heart failure with diastolic dysfunction #3. Chronic kidney disease stage IV #4. Acute kidney injury #5. History of severe peripheral vascular disease with prior fem-pop bypass #6. Hyperlipidemia #7. Diabetes #8. History of nicotine dependence #9. History of prior TIA #10. Chronic anemia Plan: Continue current antibiotics, cultures remain negative thus far, we'll decrease the dose of Solu-Medrol to 40 mg every 12 hours, no significant cough or congestion, no wheezing. Continue weaning FiO2, encourage deep breathing and coughing, encourage ambulation. Repeat chest x-ray in the morning. I performed a history & physical examination of the patient and discussed their management with my nurse practitioner, Caty Zurdo. I reviewed the nurse practitioner's note and agree with the documented findings and plan of care. Lung sounds are positive for . The findings and the impression was discussed with the patient. I attest to the documentation by the nurse practitioner. Time with Patient: Less than 30
[2018-10-31 17:42] LABS: Glucose,Whole Blood 185 mg/dL (75-99)
--- NOTE | 2018-10-31 18:19 | XR ---
EXAMINATION TYPE: XR chest 1V DATE OF EXAM: 10/31/2018 COMPARISON: 10/28/2018 HISTORY: Heart failure TECHNIQUE: Single frontal view of the chest is obtained. FINDINGS: Portable view of the chest shows coarsening of the lung markings. There is mild pulmonary congestion. There is no pulmonary consolidation. IMPRESSION: Mild pulmonary congestion slightly improved compared to old exam and consistent with mil d heart failure.
[2018-10-31] MEDS: LEVOFLOXACIN 750 MG TAB PO SCH (19:05)
[2018-10-31 19:30] LABS: Glucose,Whole Blood 143 mg/dL (75-99)
--- NOTE | 2018-10-31 20:50 | PN ---
PROGRESS NOTE Patient is seen for followup for acute kidney injury. Her renal function has been slowly worsening over the past 2-3 days. Diuretics are currently on hold. IC saline running at about 75 mL an hour. Patient, however, is complaining of some shortness of breath. EXAMINATION: Today blood pressure was 148/70, heart rate 73 per minute. She is afebrile. Examination of the heart S1, S2. Examination of the lungs, bilateral breath sounds are heard. Abdomen is soft, nontender. Examination of lower extremities shows trace edema. CHIEF CONTROLLER STATION exam is grossly intact. LABS SHOW: Sodium 137, potassium 4.5, BUN 91, serum creatinine 3.93. ASSESSMENT: 1. Chronic kidney disease stage 4 secondary to diabetic nephropathy and nephrosclerosis and baseline creatinine 2.1-2.5 mg/dL. 2. Acute kidney injury, acute tubular necrosis, most likely. The patient is maintained on IV fluids. This morning she was complaining of mild shortness of breath. I will decrease the fluids. We will repeat another set of labs tomorrow. No nephrotoxic agents on board at this time. 3. Diastolic heart failure. Ejection fraction 45%. 4. Right lower lobe pneumonia. 5. Anemia of chronic disease. PLAN: Decrease IV fluids. Repeat labs in a.m. No plans for cardiac catheterization. If renal function continues to worsen, maintain Aranesp and avoid hypotension. There is no evidence of urine retention. Dr. Becerril had been contemplating cardiac catheterization as outpatient. MMODL / IJN: [id number] /
[2018-10-31 21:44] LABS: Glucose,Whole Blood 194 mg/dL (75-99)
[2018-10-31] MEDS: methylPREDNISolone SOD SUCCI 40 MG/ML 1 ML VIAL IV SCH (21:51)
[2018-10-31] MEDS: ATORVASTATIN 80 MG TAB PO SCH (21:52)
[2018-10-31] MEDS: METOPROLOL SUCCINATE (ER) 100 MG TAB.ER.24H PO SCH (21:52)
[2018-10-31 23:41] LABS: Glucose,Whole Blood 186 mg/dL (75-99)
[2018-11-01 01:33] LABS: Glucose,Whole Blood 171 mg/dL (75-99)
[2018-11-01 03:55] LABS: Glucose,Whole Blood 166 mg/dL (75-99)
[2018-11-01] MEDS: IPRATROPIUM-ALBUTEROL 3 ML NEB INHALATION PRN (04:17)
[2018-11-01] MEDS: SODIUM CHLORIDE 0.9% 1,000 ML IV SCH ×2 (05:20→13:49)
[2018-11-01 05:28] LABS: Glucose,Whole Blood 185 mg/dL (75-99)
[2018-11-01 07:17] LABS: Glucose,Whole Blood 189 mg/dL (75-99)
[2018-11-01] MEDS: methylPREDNISolone SOD SUCCI 40 MG/ML 1 ML VIAL IV SCH (07:56)
--- NOTE | 2018-11-01 08:11 | XR ---
EXAMINATION TYPE: XR chest 2V DATE OF EXAM: 11/01/2018 COMPARISON: 10/31/2018 TECHNIQUE: PA and lateral views submitted. HISTORY: Cough FINDINGS: Coarsened interstitium with mild cardiomegaly. Persistent subsegmental changes right lung base. No pl eural effusion or pneumothorax. Hypertrophic change of the spine. Hyperinflation suggests COPD. IMPRESSION: 1. Persistent right basilar subsegmental atelectasis or infiltrate.
[2018-11-01] MEDS: BUDESONIDE 1 MG/2 ML NEBU INHALATION SCH ×2 (08:26→20:41)
[2018-11-01] MEDS: FORMOTEROL FUMARATE 20 MCG/2 ML NEBU INHALATION SCH ×2 (08:26→20:41)
[2018-11-01] MEDS: IPRATROPIUM-ALBUTEROL 3 ML NEB INHALATION SCH ×4 (08:26→20:41)
[2018-11-01] MEDS: ISOSORBIDE MONONITRATE ER 60 MG TAB.ER.24H PO SCH (08:37)
[2018-11-01] MEDS: hydrALAZINE HCL 25 MG TAB PO SCH ×2 (08:37→21:32)
[2018-11-01] MEDS: FAMOTIDINE 20 MG TAB PO SCH (08:37)
[2018-11-01] MEDS: CITALOPRAM HYDROBROMIDE 20 MG TAB PO SCH (08:37)
[2018-11-01] MEDS: guaiFENesin 600 MG TABLET.ER PO SCH ×2 (08:37→21:32)
[2018-11-01] MEDS: CLOPIDOGREL 75 MG TAB PO SCH (08:37)
[2018-11-01] MEDS: FERROUS SULFATE 325 MG TAB PO SCH (08:37)
[2018-11-01] MEDS: amLODIPine 10 MG TAB PO SCH (08:37)
[2018-11-01] MEDS: lamoTRIgine 25 MG TAB PO SCH ×2 (08:38→21:32)
[2018-11-01] MEDS: LORATADINE 10 MG TAB PO SCH (08:38)
[2018-11-01] MEDS: ALLOPURINOL 100 MG TAB PO SCH (08:38)
[2018-11-01] MEDS: INSULIN ASPART (NovoLOG) 100 UNIT/ML VIAL SQ SCH ×4 (08:38→21:32)
[2018-11-01] MEDS: VARENICLINE 1 MG TAB PO SCH ×2 (08:38→21:32)
[2018-11-01] MEDS: INSULIN DETEMIR (LEVEMIR) 100 UNIT/ML SYR SQ SCH ×2 (08:39→10:15)
[2018-11-01] MEDS: HEPARIN SODIUM,PORCINE 5,000 UNIT/ML 1 ML VIAL SQ SCH ×3 (08:39→23:32)
[2018-11-01 09:10] VITALS: BMI 29.5
[2018-11-01 09:19] LABS: Glucose,Whole Blood 221 mg/dL (75-99)
[2018-11-01 10:06] LABS: Potassium 4.5 mmol/L (3.5-5.1)
--- NOTE | 2018-11-01 11:18 | P.PN ---
Subjective Progress Note Date: 11/01/18 Principal diagnosis: Patient is a 48-year-old female with a past medical history of systolic congestive heart failure with left ventricular ejection fraction 45- 50%, chronic kidney disease stage IV, chronic anemia, diabetes, and COPD who presented to the hospital with complaints of fever and shortness of breath. In the ER she underwent an extensive evaluation. On arrival she was found to have a fever of 102.4. Initial laboratory analysis showed a white blood cell count of 12.3, hemoglobin 7.4 which is chronic for her, BUN 54, and creatinine 2.4. He was also found to be hyperglycemic with a glucose of 291. Urinalysis and influenza negative. Chest x-ray shows right lower lobe pneumonia. She was started on IV fluids, Zosyn, and Levaquin. Arrangements were made for admission. Cardiology and nephrology were consulted. No immediate plans for cardiac catheterization. Patient seen and examined at bedside reporting she been up and ambulatory, reports that her breathing is improved been improving since starting steroids. No acute events overnight. It appears to be doing well on room air but still wearing 3 L by nasal cannula Objective - Vital Signs Vital signs: Vital Signs Temp 97.3 F L 11/01/18 07:00 Pulse 74 11/01/18 08:47 Resp 15 11/01/18 07:00 BP 138/65 11/01/18 07:00 Pulse Ox 96 11/01/18 07:00 Intake & Output 10/31/18 11/01/18 11/01/18 18:59 06:59 18:59 Intake Total 584.841 0661.581 188.652 Output Total 72 Balance 038.302 1895.581 188.652 Weight 75.7 kg Intake: Intake, IV Titration 17.654 969.581 8.652 Amount Insulin Regular 100 unit 17.654 In Sodium Chloride 0.9% 100 ml @ Titrate IV .Q0M [facility] Rx#:[id number] Insulin Regular 100 unit 19.581 8.652 In Sodium Chloride 0.9% 100 ml @ Titrate IV .Q0M [facility] Rx#:[id number] Sodium Chloride 0.9% 1, 950 000 ml @ 50 mls/hr IV . Q20H [facility] Rx#:[id number] Oral 200 250 180 Output: Post Void Residual 72 Other: # Voids 2 1 - Exam Constitutional: No acute distress, conversant, pleasant Eyes: Anicteric sclerae, moist conjunctiva, no lid-lag, PERRLA ENMT: NC/AT,Oropharynx clear, no erythema, exudates Neck:Supple, FROM, no masses, or JVD, No carotid bruits; No thyromegaly Lungs: Scattered rhonchi in the right middle to lower lung britton Cardiovascular: Heart regular in rate and rhythm, No murmurs, gallops, or rubs no peripheral edema Abdominal: Soft Nontender, nom distended, no guarding, no rebound or rigidity, Normoactive bowel sounds No hepatomegaly, No splenomegaly, No palpable mass No abdominal wall hernia noted Skin: Normal temperature, tone, texture, turgor, No induration No subcutaneous nodules, No rash, lesions, No ulcers Extremities:No digital cyanosis No clubbing, Pedal pulses intact and symmetrica l Radial pulses intact and symmetrical Normal gait and station, No calf tenderness Psychiatric: Alert and oriented to person, place and time, Appropriate affect Intact judgement Neuro: Muscles Strength 5/5 in all 4 extremities, Sensation to light touch grossly present throughout, Cranial nerves II-XII grossly intact. No focal sensory deficits - Labs CBC & Chem 7: 10/30/18 06:12 11/01/18 08:53 Labs: Abnormal Lab Results - Last 24 Hours (Table) 10/30/18 10/31/18 10/31/18 Range/Units 06:12 11:34 13:37 Carbon Dioxide (22-30) mmol/L BUN (7-17) mg/dL Creatinine (0.52-1.04) mg/dL Glucose (74-99) mg/dL POC Glucose (mg/dL) 200 H 199 H (75-99) mg/dL Hemoglobin A1c 7.7 H (4.0-6.0) % 10/31/18 10/31/18 10/31/18 Range/Units 15:52 17:40 19:28 Carbon Dioxide (22-30) mmol/L BUN (7-17) mg/dL Creatinine (0.52-1.04) mg/dL Glucose (74-99) mg/dL POC Glucose (mg/dL) 215 H 185 H 143 H (75-99) mg/dL Hemoglobin A1c (4.0-6.0) % 10/31/18 10/31/18 11/01/18 Range/Units 21:43 23:39 01:32 Carbon Dioxide (22-30) mmol/L BUN (7-17) mg/dL Creatinine (0.52-1.04) mg/dL Glucose (74-99) mg/dL POC Glucose (mg/dL) 194 H 186 H 171 H (75-99) mg/dL Hemoglobin A1c (4.0-6.0) % 11/01/18 11/01/18 11/01/18 Range/Units 03:43 05:27 07:16 Carbon Dioxide (22-30) mmol/L BUN (7-17) mg/dL Creatinine (0.52-1.04) mg/dL Glucose (74-99) mg/dL POC Glucose (mg/dL) 166 H 185 H 189 H (75-99) mg/dL Hemoglobin A1c (4.0-6.0) % 11/01/18 11/01/18 Range/Units 08:53 09:16 Carbon Dioxide 20 L (22-30) mmol/L BUN 99 H (7-17) mg/dL Creatinine 3.49 H (0.52-1.04) mg/dL Glucose 185 H (74-99) mg/dL POC Glucose (mg/dL) 221 H (75-99) mg/dL Hemoglobin A1c (4.0-6.0) % Microbiology - Last 24 Hours (Table) 10/25/18 15:21 Blood Culture - Final Blood No Growth after 144 hours Assessment and Plan Assessment: Sepsis -Continue with Levaquin day #7 and d/c Zosyn -Bronchodilators -Sputum culture showing moderate respiratory elicia -Blood cultures no growth 48 hours Healthcare associated pneumonia with sepsis, possible gram-negative * Treatment as above Acute hypoxic respiratory failure secondary to above superimposed on COPD exacerbation -Bronchodilators -Decreased O2 as able -Appreciate pulmonary recommendations continue with systemic steroids NED superimposed on Chronic kidney disease stage IV -Creatinine coming down to 3.43 today.... Previously 2.1-2.5 -initiated on gentle IV fluid hydration NS @ 75 cc/hr Anemia, hx of Fe deficiency with infusion - follow CBC -Hemoglobin this morning 7.4, s/p 1 u prbcs 10/28 Compensated systolic congestive heart failure with ejection fraction 45-50% associated with severe mitral regurgitation -Continue with oral Lasix, metoprolol, not chronically on MI inhibitor secondary to kidney failure -Cardiology recs -Strict I's and O's, daily weights, 2 L fluid restriction, low sodium diet -Telemetry Chronic chest pain - troponin negative - cardio recs apprecited - ekg non ischemic Hypertension -Norvasc, hydralazine, metoprolol -Follow blood pressures Peripheral artery disease -Plavix -Consult cardiology GERD -H2 chau Diabetes mellitus type 2, with steroid-induced hyperglycemia -Sliding-scale insulin, Levemir 18 units -Hold glipizide -A1c 7.5 dispo : attempt to wean oxygen and do home O2 eval approaching discharge DVT prophylaxis: Heparin Discussed with: Patient, nursing, nephro Anticipated discharge date: Tomorrow Anticipated discharge place: home A total of 35 minutes was spent on the care of this complex patient more than 50% of the time was spent in counseling and care coordination.
[2018-11-01 11:25] LABS: Glucose,Whole Blood 216 mg/dL (75-99)
--- NOTE | 2018-11-01 13:55 | P.PN ---
Subjective Progress Note Date: 11/01/18 Principal diagnosis: Acute exacerbation of chronic obstructive pulmonary disease, complicated by right lower lobe pneumonia and exacerbation of heart failure. Patient is seen today 11/01/2018 in follow-up on the regular medical floor. She is currently sitting up at the bedside. Awake and alert in no acute distress. She is maintaining O2 saturations in the mid 90s on 3 L/m per nasal cannula. Room air oxygen saturation 89%. Afebrile. Blood culture reveals no growth. Urine culture reveals no growth. Sputum culture reveals no growth. Sodium 138. Potassium 4.5. Creatinine 3.49. She remains on DuoNeb inhalations, Pulmicort and Perforomist inhalations, oral prednisone and Levaquin. She is on Chantix. Chest x-ray shows persistent right basilar subsegmental atelectasis/infiltrate. Evidence of COPD. Objective - Vital Signs Vital signs: Vital Signs Temp 97.3 F L 11/01/18 07:00 Pulse 74 11/01/18 12:20 Resp 15 11/01/18 07:00 BP 138/65 11/01/18 07:00 Pulse Ox 91 L 11/01/18 12:08 Intake & Output 10/31/18 11/01/18 11/01/18 18:59 06:59 18:59 Intake Total 382.730 2586.581 232.945 Output Total 72 Balance 343.625 9891.581 232.945 Weight 75.7 kg Intake: Intake, IV Titration 17.654 969.581 12.945 Amount Insulin Regular 100 unit 17.654 In Sodium Chloride 0.9% 100 ml @ Titrate IV .Q0M [facility] Rx#:[id number] Insulin Regular 100 unit 19.581 12.945 In Sodium Chloride 0.9% 100 ml @ Titrate IV .Q0M [facility] Rx#:[id number] Sodium Chloride 0.9% 1, 950 000 ml @ 50 mls/hr IV . Q20H [facility] Rx#:[id number] Oral 200 250 220 Output: Post Void Residual 72 Other: # Voids 2 1 - Exam GENERAL EXAM: Alert, active, comfortable in no apparent distress. On 3 L nasal cannula. HEAD: Normocephalic. EYES: Normal reaction of pupils, equal size. NOSE: Clear with pink turbinates. THROAT: No erythema or exudates. NECK: No masses, no JVD. CHEST: No chest wall deformity. LUNGS: Equal air entry end expiratory wheeze, few scattered rhonchi more so in the right lung. CVS: S1 and S2 normal with no audible murmur, regular rhythm. ABDOMEN: No hepatosplenomegaly, normal bowel sounds, no guarding or rigidity. SPINE: No scoliosis or deformity SKIN: No rashes CENTRAL NERVOUS SYSTEM: No focal deficits, tone is normal in all 4 extremities. EXTREMITIES: There is no peripheral edema. No clubbing, no cyanosis. Peripheral pulses are intact. - Labs CBC & Chem 7: 10/30/18 06:12 11/01/18 08:53 Labs: Abnormal Lab Results - Last 24 Hours (Table) 10/31/18 10/31/18 10/31/18 Range/Units 13:37 15:52 17:40 Carbon Dioxide (22-30) mmol/L BUN (7-17) mg/dL Creatinine (0.52-1.04) mg/dL Glucose (74-99) mg/dL POC Glucose (mg/dL) 199 H 215 H 185 H (75-99) mg/dL 10/31/18 10/31/18 10/31/18 Range/Units 19:28 21:43 23:39 Carbon Dioxide (22-30) mmol/L BUN (7-17) mg/dL Creatinine (0.52-1.04) mg/dL Glucose (74-99) mg/dL POC Glucose (mg/dL) 143 H 194 H 186 H (75-99) mg/dL 11/01/18 11/01/18 11/01/18 Range/Units 01:32 03:43 05:27 Carbon Dioxide (22-30) mmol/L BUN (7-17) mg/dL Creatinine (0.52-1.04) mg/dL Glucose (74-99) mg/dL POC Glucose (mg/dL) 171 H 166 H 185 H (75-99) mg/dL 11/01/18 11/01/18 11/01/18 Range/Units 07:16 08:53 09:16 Carbon Dioxide 20 L (22-30) mmol/L BUN 99 H (7-17) mg/dL Creatinine 3.49 H (0.52-1.04) mg/dL Glucose 185 H (74-99) mg/dL POC Glucose (mg/dL) 189 H 221 H (75-99) mg/dL 11/01/18 Range/Units 11:23 Carbon Dioxide (22-30) mmol/L BUN (7-17) mg/dL Creatinine (0.52-1.04) mg/dL Glucose (74-99) mg/dL POC Glucose (mg/dL) 216 H (75-99) mg/dL Microbiology - Last 24 Hours (Table) 10/25/18 15:21 Blood Culture - Final Blood No Growth after 144 hours Assessment and Plan Assessment: Assessment #1. Acute exacerbation of chronic obstructive pulmonary disease complicated by right lower lobe pneumonia #2. Acute exacerbation of congestive heart failure with diastolic dysfunction #3. Chronic kidney disease stage IV #4. Acute kidney injury #5. History of severe peripheral vascular disease with prior fem-pop bypass #6. Hyperlipidemia #7. Diabetes #8. History of nicotine dependence #9. History of prior TIA #10. Chronic anemia Plan: The patient was seen and evaluated by Dr. Gibbons. Chest x-ray and labs reviewed. We'll continue with her current treatment plan. Increase her activity as tolerated. We'll continue to follow make further recommendations based on her clinical status. I, the cosigning physician, performed a history & physical examination of the patient. Lungs sounds with end expiratory wheeze, rhonchi in the right lung Maintaining good O2 saturations in the 90s on 3 L/m per nasal cannula. I discussed the assessment and plan of care with my nurse practitioner, Isabel Gonzalez. I attest to the above note as dictated by her.
[2018-11-01] MEDS ORDERED: INSULIN DETEMIR (LEVEMIR) 100 UNIT/ML SYR SQ SCH (14:00)
[2018-11-01 14:26] LABS: Glucose,Whole Blood 212 mg/dL (75-99)
[2018-11-01 17:16] LABS: Glucose,Whole Blood 176 mg/dL (75-99)
[2018-11-01 20:36] LABS: Glucose,Whole Blood 202 mg/dL (75-99)
--- NOTE | 2018-11-01 21:18 | PN ---
PROGRESS NOTE Patient is seen for followup for chronic kidney disease and acute kidney injury. She is currently being treated for COPD exacerbation. The patient's diuretics are on hold secondary to worsening renal function. Her creatinine is slightly better today. Overall, patient states she is feeling better as well. PHYSICAL EXAMINATION: On examination, blood pressure this morning was 138/65, heart rate of 60 per minute. Patient is afebrile. Examination of the heart S1, S2. Examination of the lungs, bilateral breath sounds are heard. Abdomen is soft, nontender. Exam of lower extremities shows edema 1+ bilaterally mainly in the thighs. LEVER OPERATOR exam is grossly intact. LAB: Show sodium 138, potassium 4.5, chloride 107, BUN 99, serum creatinine 3.49. ASSESSMENT: 1. Acute kidney injury prerenal as well as likely underlying acute tubular necrosis currently slightly improved. IV fluids were decreased yesterday. I will continue with 50 mL an hour for now. Repeat labs in a.m. Patient could likely be discharged by tomorrow. 2. Chronic kidney disease stage IV secondary to diabetic nephropathy and nephrosclerosis. Baseline creatinine 2.1-2.5 mg/dL. 3. Congestive heart failure, acute on top of chronic, mainly diastolic. EF was 45%. 4. Right lower lobe pneumonia. 5. Anemia of chronic disease. PLAN: Continue on saline at 50 mL an hour. Repeat labs in a.m. Possible discharge tomorrow if stable from pulmonary standpoint. MMODL / IJN: [id number] /
[2018-11-01] MEDS: METOPROLOL SUCCINATE (ER) 100 MG TAB.ER.24H PO SCH (21:32)
[2018-11-01] MEDS: ATORVASTATIN 80 MG TAB PO SCH (21:32)
[2018-11-02] MEDS: IPRATROPIUM-ALBUTEROL 3 ML NEB INHALATION PRN (01:17)
[2018-11-02] MEDS: HEPARIN SODIUM,PORCINE 5,000 UNIT/ML 1 ML VIAL SQ SCH (07:30)
[2018-11-02] MEDS: INSULIN ASPART (NovoLOG) 100 UNIT/ML VIAL SQ SCH ×3 (07:30→12:19)
[2018-11-02 07:37] LABS: Glucose,Whole Blood 143 mg/dL (75-99)
[2018-11-02 07:41] VITALS: BP 142/67; RESP 16; TEMP 98.3
[2018-11-02] MEDS: VARENICLINE 1 MG TAB PO SCH (07:58)
[2018-11-02] MEDS: CLOPIDOGREL 75 MG TAB PO SCH (07:59)
[2018-11-02] MEDS: guaiFENesin 600 MG TABLET.ER PO SCH (07:59)
[2018-11-02] MEDS: FAMOTIDINE 20 MG TAB PO SCH (07:59)
[2018-11-02] MEDS: ALLOPURINOL 100 MG TAB PO SCH (07:59)
[2018-11-02] MEDS: CITALOPRAM HYDROBROMIDE 20 MG TAB PO SCH (07:59)
[2018-11-02] MEDS: hydrALAZINE HCL 25 MG TAB PO SCH (07:59)
[2018-11-02] MEDS: lamoTRIgine 25 MG TAB PO SCH (07:59)
[2018-11-02] MEDS: LORATADINE 10 MG TAB PO SCH (07:59)
[2018-11-02] MEDS: amLODIPine 10 MG TAB PO SCH (07:59)
[2018-11-02] MEDS: ISOSORBIDE MONONITRATE ER 60 MG TAB.ER.24H PO SCH (07:59)
[2018-11-02] MEDS: FERROUS SULFATE 325 MG TAB PO SCH (07:59)
[2018-11-02 08:28] LABS: Potassium 4.4 mmol/L (3.5-5.1)
[2018-11-02] MEDS: FORMOTEROL FUMARATE 20 MCG/2 ML NEBU INHALATION SCH (08:45)
[2018-11-02] MEDS: IPRATROPIUM-ALBUTEROL 3 ML NEB INHALATION SCH ×2 (08:45→11:50)
[2018-11-02] MEDS: BUDESONIDE 1 MG/2 ML NEBU INHALATION SCH (08:45)
[2018-11-02] MEDS ORDERED: predniSONE 20 MG TAB PO SCH (09:00)
--- NOTE | 2018-11-02 10:41 | P.DS ---
Providers Date of admission: 10/25/18 16:31 Expected date of discharge: 11/02/18 Attending physician: Isadora Santiago DO Consults: 10/25/18 18:54 Consult Physician Routine Consulting Provider: Ananda Becerril Consult Reason/Comments: chest pain Do you want consulting provider notified?: Yes Consult Physician Routine Consulting Provider: Paxton Hinds Consult Reason/Comments: CKD Do you want consulting provider notified?: Yes 10/29/18 09:26 Consult Physician Routine Consulting Provider: Dustin Gibbons Consult Reason/Comments: PNA Do you want consulting provider notified?: Yes Primary care physician: Tamika Pratt MD Hospital Course: Discharge diagnosis Acute hypoxic respiratory failure multifactorial etiology Right lower lobe pneumonia Acute combined systolic and [place] of exacerbation Acute COPD exacerbation Sepsis Acute kidney injury superimposed on chronic kidney disease stage IV Anemia of chronic disease/iron deficiency anemia Essential hypertension Peripheral artery disease Type 2 diabetes with hyperglycemia GERD Hospital course Patient is a 48-year-old female with a past medical history of systolic congestive heart failure with left ventricular ejection fraction 45-50% with severe mitral regurgitation, chronic kidney disease stage IV, chronic anemia, diabetes, and COPD who presented to the hospital with complaints of feve r and shortness of breath. She is admitted was admitted with acute respiratory failure multifactorial etiology secondary to right lower lobe pneumonia superimposed on combined acute on chronic systolic and diastolic CHF exacerbation with an acute COPD exacerbation. In the ER she underwent an extensive evaluation. On arrival she was found to have a fever of 102.4 and was placed on empiric IV antibiotics with Levaquin and Zosyn along with scheduled and when necessary bronchodilator DuoNeb albuterol Atrovent breathing treatments to treat her sepsis. Chest x-ray shows right lower lobe pneumonia. Cardiology and nephrology were consulted patient was then consulted, with cardiology recommending No immediate plans for cardiac catheterization due to the patient's acute illness. The patient was noted to have acute kidney injury on chronic kidney disease as her creatinine got as high as 3.93 with a previous baseline of 2.1 - 2.5 after being over diuresed with Lasix to treat her CHF exacerbation, her Lasix was discontinued and she was placed on gentle fluids. Pulmonary was consulted and added steroids and the patient regimen for an acute COPD exacerbation which helped the patient weaned back down to room air and improved her breathing. The patient noted to have anemia of chronic disease secondary to CKD her hemoglobin dropped as low as 6.7 and she received 1 unit of packed RBCs, she also continued to receive iron infusions during her stay. The patient is also noted to be hyperglycemic in the setting of type 2 diabetes secondary to steroids used to treat her COPD exacerbation and was placed on correctional insulin coverage. Hemoglobin A1c was 7.7. The patient was eventually weaneddown to 2 L nasal cannula and was able to qualify for home O2 as her sats dropped to 86% on room air with ambulation and exertion. She was subsequently discharged home in stable condition with plans for follow-up BMP with results to Dr. Montelongo (nephrology) in 3 days was follow-up appointment on Wednesday. The patient was discharged to keep her follow-up appointments with her PCP and cardiology and nephrology. This discharge process took approximately 35 minutes Focused exam: Respiratory: Minimal scattered rhonchi, no wheezes, unlabored on room air Cardiovascular: Regular rate and rhythm no murmurs rubs or gallops , +1.5 pitting edema in bilateral lower extremities Plan - Discharge Summary Discharge Rx Participant: No New Discharge Prescriptions: New Levofloxacin [Levaquin] 500 mg PO Q48H #3 tab guaiFENesin [Mucinex] 1,200 mg PO Q12HR #10 tablet.er predniSONE 10 mg PO DAILY #21 tab Furosemide [Lasix] 120 mg PO DAILY #30 tablet Furosemide [Lasix] 60 mg PO HS 30 Days tablet Continue Clopidogrel Bisulfate [Plavix] 75 mg PO DAILY Loratadine [Claritin] 10 mg PO DAILY lamoTRIgine [LaMICtal] 25 mg PO BID Ferrous Sulfate [Iron (65 MG Elemental)] 325 mg PO DAILY Ergocalciferol (Vitamin D2) [Drisdol] 50,000 unit PO Q14D Citalopram Hydrobromide [CeleXA] 20 mg PO DAILY Atorvastatin [Lipitor] 80 mg PO HS Albuterol Inhaler [Ventolin Hfa Inhaler] 1 - 2 puff INHALATION RT-Q6H PRN PRN Reason: Shortness Of Breath amLODIPine [Norvasc] 10 mg PO DAILY Famotidine [Pepcid] 40 mg PO DAILY Isosorbide Mononitrate ER [Imdur] 60 mg PO DAILY #30 tab.er.24h Albuterol Nebulized [Ventolin Nebulized] 2.5 mg INHALATION RT-Q6H PRN PRN Reason: Shortness Of Breath hydrALAZINE HCL 25 mg PO BID Insulin Glargine,Hum.rec.anlog [Basaglar Kwikpen U-100] 22 units SQ DAILY@1400 Allopurinol [Zyloprim] 100 mg PO DAILY Metoprolol Succinate [Toprol XL] 100 mg PO HS glipiZIDE [Glucotrol] 10 mg PO AC-BID Umeclidinium [place] [Incruse Ellipta] 62.5 mcg INHALATION RT-HS Varenicline [Chantix Continuing Pack] 1 mg PO BID Discontinued Furosemide [Lasix] 20 mg PO BID #60 tab Furosemide [Lasix] 40 mg PO BID #60 tablet Discharge Medication List Clopidogrel Bisulfate [Plavix] 75 mg PO DAILY 01/21/15 [History] Ergocalciferol (Vitamin D2) [Drisdol] 50,000 unit PO Q14D 01/21/15 [History] Ferrous Sulfate [Iron (65 MG Elemental)] 325 mg PO DAILY 01/21/15 [History] Loratadine [Claritin] 10 mg PO DAILY 01/21/15 [History] lamoTRIgine [LaMICtal] 25 mg PO BID 01/21/15 [History] Albuterol Inhaler [Ventolin Hfa Inhaler] 1 - 2 puff INHALATION RT-Q6H PRN 06/30/17 [History] Atorvastatin [Lipitor] 80 mg PO HS 06/30/17 [History] Citalopram Hydrobromide [CeleXA] 20 mg PO DAILY 06/30/17 [History] Famotidine [Pepcid] 40 mg PO DAILY 06/18/18 [History] amLODIPine [Norvasc] 10 mg PO DAILY 06/18/18 [History] Isosorbide Mononitrate ER [Imdur] 60 mg PO DAILY #30 tab.er.24h 06/22/18 [Rx] Albuterol Nebulized [Ventolin Nebulized] 2.5 mg INHALATION RT-Q6H PRN 07/02/18 [History] hydrALAZINE HCL 25 mg PO BID 07/02/18 [History] Insulin Glargine,Hum.rec.anlog [Basaglar Kwikpen U-100] 22 units SQ DAILY@1400 07/03/18 [History] Allopurinol [Zyloprim] 100 mg PO DAILY 08/30/18 [History] Metoprolol Succinate [Toprol XL] 100 mg PO HS 10/08/18 [History] Umeclidinium [place] [Incruse Ellipta] 62.5 mcg INHALATION RT-HS 10/08/18 [History] glipiZIDE [Glucotrol] 10 mg PO AC-BID 10/08/18 [History] Varenicline [Chantix Continuing Pack] 1 mg PO BID 10/25/18 [History] Furosemide [Lasix] 60 mg PO HS 30 Days tablet 11/02/18 [Rx] Furosemide [Lasix] 120 mg PO DAILY #30 tablet 11/02/18 [Rx] Levofloxacin [Levaquin] 500 mg PO Q48H #3 tab 11/02/18 [Rx] guaiFENesin [Mucinex] 1,200 mg PO Q12HR #10 tablet.er 11/02/18 [Rx] predniSONE 10 mg PO DAILY #21 tab 11/02/18 [Rx] Follow up Appointment(s)/Referral(s): Mis Montelongo MD [STAFF PHYSICIAN] - 11/07/18 (Office staff will be contacting patient this week to give a time for appointment WednesdayNovember 07) Ryanne Strauss NPC [REFERRING] - 11/08/18 9:00 am (Dr. Pratt is out of the office, follow up appointment is set with a covering office) Ananda Becerril MD [STAFF PHYSICIAN] - 11/15/18 2:30 pm Ambulatory/Diagnostic Orders: Basic Metabolic Panel [LAB.AMB] Time Frame: 3 Days, Location: None Selected Discharge Disposition: HOME WITH HOME HEALTH SERVICES
[2018-11-02 12:03] VITALS: PULSE 70
[2018-11-02 12:50] LABS: Glucose,Whole Blood 192 mg/dL (75-99)
--- NOTE | 2018-11-02 14:56 | P.PN ---
Subjective Progress Note Date: 11/02/18 Principal diagnosis: Acute exacerbation of chronic obstructive pulmonary disease complicated by right lower lobe pneumonia and acute exacerbation of congestive heart failure. On 10/30/2018 patient seen in follow-up on selective care unit, awake and alert, in no acute distress, she is currently on 6 L per high flow nasal cannula, and her pulse ox 100%, this can probably be weaned down further. Since her breathing is improving, denies any worsening shortness of breath or chest pain, she is afebrile, hemodynamically stable, she is on Levaquin for antibiotic coverage, blood urine and sputum cultures are negative. His labs have been reviewed, showing white blood cell count is down to 2.9, hemoglobin of 7.4, serum sodium is 133, potassium is 5.3, chloride is 101, CO2 is 20, creatinine is 3.89, and B1 is 73. Her BNP is 12,400. The nausea or diarrhea, nephrology is following, her diuretics have been discontinued yesterday, there has been increase in her renal profile, patient is actually receiving IV hydration, at 75 ML per hour. On 10/31/2018 patient seen in follow-up on medical surgical floor. She is awake and alert, currently on 3 L of oxygen with a pulse ox of 98%, this can probably be weaned down further, earlier patient was satting 90% on room air, subse quently did get short of breath and desatted, was placed back on supplement oxygen, afebrile, hemodynamically stable, lung sounds reveal coarse crackles bilaterally at the bases, no significant wheezes or congestion. Continues on IV Solu-Medrol 60 mg every 6 hours, and patient is requiring insulin infusion for steroid-induced hyperglycemia currently at 2 units per hour. Lasix remains on hold, and patient is receiving gentle IV hydration for worsening acute kidney, his labs showing BUN of 91, and creatinine of 3.93, potassium is 4.5. Appetite is improving, no nausea vomiting or diarrhea. She is nonoliguric. Blood urine and sputum cultures are negative. On 11/02/2018 patient seen in follow-up on medical surgical floor. She is awake and alert, in no acute distress, vital signs are stable, home oxygen assessment revealed desaturation to 85% at rest, and 86% with exercise. And patient didn't qualify for home oxygen, no acute events overnight, no new chest x-ray today, patient is breathing easier, she has been transitioned to oral prednisone. All culture data remains negative thus far, including blood and urine and sputum cultures. Objective - Vital Signs Vital signs: Vital Signs Temp 98.3 F 11/02/18 07:00 Pulse 70 11/02/18 12:02 Resp 16 11/02/18 07:00 BP 142/67 11/02/18 07:00 Pulse Ox 85 L 11/02/18 11:33 Intake & Output 11/01/18 11/02/18 11/02/18 18:59 06:59 18:59 Intake Total 632.945 400 Balance 632.945 400 Weight 75.7 kg Intake: IV 400 Sodium Chloride 0.9% 1, 400 000 ml @ 50 mls/hr IV . Q20H KESHAWN Rx#:[id number] Intake, IV Titration 12.945 Amount Insulin Regular 100 unit 12.945 In Sodium Chloride 0.9% 100 ml @ Titrate IV .Q0M KESHAWN Rx#:[id number] Oral 220 400 Other: Voiding Method Toilet # Voids 3 3 - Exam GENERAL EXAM: Alert, pleasant, 48-year-old white female, on 3 L of oxygen, with a pulse ox 94% comfortable in no apparent distress. HEAD: Normocephalic/atraumatic. EYES: Normal reaction of pupils, equal size. Conjunctiva pink, sclera white. NOSE: Clear with pink turbinates. THROAT: No erythema or exudates. NECK: No masses, no JVD, no thyroid enlargement, no adenopathy. CHEST: No chest wall deformity. Symmetrical expansion. LUNGS: Equal air entry with image breath sounds bilaterally, lung sounds are coarse inspiratory crackles., but no significant congestion CVS: Regular rate and rhythm, normal S1 and S2, no gallops, no murmurs, no rubs ABDOMEN: Soft, nontender. No hepatosplenomegaly, normal bowel sounds, no guarding or rigidity. EXTREMITIES: No clubbing, no edema, no cyanosis, 2+ pulses and upper and lower extremities. MUSCULOSKELETAL: Muscle strength and tone normal. SPINE: No scoliosis or deformity SKIN: No rashes CENTRAL NERVOUS SYSTEM: Alert and oriented -3. No focal deficits, tone is normal in all 4 extremities. PSYCHIATRIC: Alert and oriented -3. Appropriate affect. Intact judgment and insight. - Labs CBC & Chem 7: 10/30/18 06:12 11/02/18 07:06 Labs: Abnormal Lab Results - Last 24 Hours (Table) 11/01/18 11/01/18 11/02/18 Range/Units 17:04 20:34 07:06 Chloride 113 H (98-107) mmol/L Carbon Dioxide 17 L (22-30) mmol/L BUN 101 H* (7-17) mg/dL Creatinine 2.94 H (0.52-1.04) mg/dL Glucose 118 H (74-99) mg/dL POC Glucose (mg/dL) 176 H 202 H (75-99) mg/dL 11/02/18 11/02/18 Range/Units 07:17 11:20 Chloride (98-107) mmol/L Carbon Dioxide (22-30) mmol/L BUN (7-17) mg/dL Creatinine (0.52-1.04) mg/dL Glucose (74-99) mg/dL POC Glucose (mg/dL) 143 H 192 H (75-99) mg/dL Assessment and Plan Plan: Assessment #1. Acute exacerbation of chronic obstructive pulmonary disease complicated by right lower lobe pneumonia #2. Acute exacerbation of congestive heart failure with diastolic dysfunction #3. Chronic kidney disease stage IV #4. Acute kidney injury #5. History of severe peripheral vascular disease with prior fem-pop bypass #6. Hyperlipidemia #7. Diabetes #8. History of nicotine dependence #9. History of prior TIA #10. Chronic anemia Plan: Patient is doing well, let us signs are stable, did qualify for home oxygen, all culture data remains negative thus far, no acute events overnight, breathing easier, no complaints of chest pain cough or congestion. No wheezing. She will need follow-up appointment with Dr. Gibbons in the office. Stable for maile kidd today. I performed a history & physical examination of the patient and discussed their management with my nurse practitioner, Caty Renner. I reviewed the nurse practitioner's note and agree with the documented findings and plan of care. Lung sounds are positive for . The findings and the impression was discussed with the patient. I attest to the documentation by the nurse practitioner. Time with Patient: Less than 30
[2018-11-02] MEDS ORDERED: LEVOFLOXACIN 500 MG TAB PO SCH (18:00)
== END 2018-11-02 13:28 | disposition home or self-care (01) | DRG 871 ==
LOC: EC 14:00 → 3SCARD 16:31 → 4SSUR 10-31 02:39
PROVIDERS: ADMIT Internal Medicine; ATTEND Internal Medicine
PROC: 30233N1 Transfusion of Nonautologous Red Blood Cells into Peripheral Vein, Percutaneous Approach (ICD-10-PCS; principal; 2018-10-28)
DX: A41.9 Sepsis, unspecified organism (principal); J15.6 Pneumonia due to other Gram-negative bacteria; J96.01 Acute respiratory failure with hypoxia; I50.43 Acute on chronic combined systolic (congestive) and diastolic (congestive) heart failure; N17.0 Acute kidney failure with tubular necrosis; I13.0 Hypertensive heart and chronic kidney disease with heart failure and stage 1 through stage 4 chronic kidney disease, or unspecified chronic kidney disease; N18.4 Chronic kidney disease, stage 4 (severe); J44.0 Chronic obstructive pulmonary disease with (acute) lower respiratory infection; J44.1 Chronic obstructive pulmonary disease with (acute) exacerbation; E87.2 Acidosis; J98.11 Atelectasis; E11.22 Type 2 diabetes mellitus with diabetic chronic kidney disease; E11.51 Type 2 diabetes mellitus with diabetic peripheral angiopathy without gangrene; E11.649 Type 2 diabetes mellitus with hypoglycemia without coma; E11.65 Type 2 diabetes mellitus with hyperglycemia; F32.9 Major depressive disorder, single episode, unspecified; I34.0 Nonrheumatic mitral (valve) insufficiency; D63.1 Anemia in chronic kidney disease; K21.9 Gastro-esophageal reflux disease without esophagitis; R07.9 Chest pain, unspecified; G89.29 Other chronic pain; D50.9 Iron deficiency anemia, unspecified; F41.9 Anxiety disorder, unspecified; E78.5 Hyperlipidemia, unspecified; T50.2X5A Adverse effect of carbonic-anhydrase inhibitors, benzothiadiazides and other diuretics, initial encounter; T38.0X5A Adverse effect of glucocorticoids and synthetic analogues, initial encounter; Y95 Nosocomial condition; Z99.2 Dependence on renal dialysis; Z79.02 Long term (current) use of antithrombotics/antiplatelets; Z79.4 Long term (current) use of insulin; Z79.899 Other long term (current) drug therapy; Z87.891 Personal history of nicotine dependence; Z71.6 Tobacco abuse counseling; Z86.73 Personal history of transient ischemic attack (TIA), and cerebral infarction without residual deficits; Z87.01 Personal history of pneumonia (recurrent); Z90.49 Acquired absence of other specified parts of digestive tract; Z85.6 Personal history of leukemia; Z95.828 Presence of other vascular implants and grafts; Z98.51 Tubal ligation status; Z98.890 Other specified postprocedural states; Z88.0 Allergy status to penicillin; Z91.030 Bee allergy status; Z83.3 Family history of diabetes mellitus; Z82.49 Family history of ischemic heart disease and other diseases of the circulatory system; Z80.3 Family history of malignant neoplasm of breast; Z82.3 Family history of stroke
CPT/HCPCS: 36415; 71045; 71046; 80048; 80053; 81001; 82728; 83036; 83540; 83550; 83605; 83735; 83880; 84100; 84484; 85025; 85027; 85610; 85730; 86850; 86900; 86901; 86920; 87040; 87070; 87086; 87205; 87502; 93005; 94640; 94760; 96365; 96367; 99285

== ENCOUNTER 2018-12-09 07:06 | Day surgery (SDC) | payer OTHER ==
[~2018-12-09 07:06] MED LIST: ALPRAZolam 0.25 MG TAB PO PRN; ALPRAZolam 0.5 MG TAB PO PRN; ASPIRIN 325 MG TAB PO ONE; ASPIRIN 325 MG TAB PO STA; ATORVASTATIN 80 MG TAB PO ONE; NITROGLYCERIN SL TABS 0.4 MG TAB SUBLINGUAL PRN; SODIUM CHLORIDE 0.9% 1,000 ML IV SCH; SODIUM CHLORIDE 0.9% 1,000 ML in EMPTY BAG 1 BAG IV ONE
[2018-12-09 07:36] LABS: Glucose,Whole Blood 167 mg/dL (75-99)
[2018-12-09] MEDS ORDERED: SODIUM CHLORIDE 0.9% 1,000 ML IV ONE (07:42)
[2018-12-09 07:47] LABS: Anisocytosis Slight; Basophils # (A) 0.2 k/uL (0-0.2); Basophils % (A) 1 %; Eosinophils # (A) 2.2 k/uL (0-0.7); Eosinophils % (A) 19 %; HCT 31.9 % (34.0-46.0); Lymphocytes # (A) 1.2 k/uL (1.0-4.8); Lymphocytes % (A) 10 %; MCH 30.2 pg (25.0-35.0); MCHC 31.4 g/dL (31.0-37.0); MCV 96.1 fL (80.0-100.0); Mean Platelet Volume 7.8; Monocytes # (A) 0.7 k/uL (0-1.0); Monocytes % (A) 6 %; Neutrophils # (A) 7.2 k/uL (1.3-7.7); Neutrophils % (A) 62 %; RBC 3.32 m/uL (3.80-5.40); RDW 16.9 % (11.5-15.5); WBC 11.6 k/uL (3.8-10.6)
[2018-12-09 07:55] LABS: Platelet Count 426 k/uL (150-450)
[2018-12-09 07:57] LABS: Calcium 9.5 mg/dL (8.4-10.2); Potassium 4.1 mmol/L (3.5-5.1)
[2018-12-09] MEDS ORDERED: fentaNYL (PF) 50 MCG/ML 2 ML AMP ONE (11:09)
[2018-12-09] MEDS: BENZOCAINE SPRAY 1 CAN MUCOUS MEM ONE ×2 (11:16→11:22)
[2018-12-09] MEDS: MIDAZOLAM PF (FBP) 2 MG/2 ML VIAL IV ONE ×2 (11:22→11:35)
[2018-12-09] MEDS: fentaNYL (PF) 50 MCG/ML 2 ML AMP IV ONE ×2 (11:22→11:35)
[2018-12-09] MEDS: MIDAZOLAM PF (FBP) 2 MG/2 ML VIAL IVP ONE ×2 (11:37→11:43)
[2018-12-09] MEDS ORDERED: LIDOCAINE 1% INJ 10MG/ML (20 ML MDV) SQ ONE (12:22)
--- NOTE | 2018-12-09 12:31 | ECHOT ---
TRANSESOPHAGEAL ECHOCARDIOGRAM DATE OF SERVICE: 12/09/2018 PERFORMING PHYSICIAN: Ananda Becerril MD, Garment Form Assembler. PROCEDURE PERFORMED: Transesophageal echocardiogram. INDICATION: This is a 48-year-old female patient who underwent recently an echocardiogram for shortness of breath and that revealed severe mitral regurgitation. She was brought today to undergo transesophageal echocardiogram for further evaluation of the mitral valve regurgitation severity. COMPLICATION: None. LEVEL OF SEDATION: Moderate with sedation length of 15 minutes. PROCEDURE DESCRIPTION: After obtaining an informed consent, explaining the procedure, benefits, risks, complications and alternatives, the patient was brought to the transesophageal echocardiogram suite. A pulse oximetry and heart rate monitors were attached to the patient prior to the procedure. The patient's throat was sprayed using lidocaine locally. Following that, the patient was turned into left lateral position. A bite guard was placed and the patient was then sedated with the above doses of Versed and fentanyl in divided doses. Following that, the transesophageal echocardiogram probe was advanced through the bite guard into the mid esophagus where 2-D echocardiogram images as well as color Doppler images of various cardiac structures were obtained. We evaluated the interatrial septum using 2-D echocardiogram, color Doppler, and contrast study. The procedure was completed. There were no complications. FINDINGS: The left ventricular dimension appeared to be within normal limits. The left ventricular systolic function appeared to be at the low limits of normal with EF of 50%. The right ventricle appeared to be of normal size and function. The left atrium appeared to be dilated. The left atrial appendage appeared to be free from any thrombus. The interatrial septum appeared to be intact. The aortic valve is trileaflet valve without stenosis or regurgitation. The mitral valve seems to be mildly thickened with evidence of moderate mitral regurgitation. The mitral regurgitation is moderate by color-flow Doppler, vena contractile, as well as . There was no reversal flow in the pulmonary veins. The tricuspid valve showed evidence of mild tricuspid regurgitation. There was mild pulmonic insufficiency as well. CONCLUSION: 1. Low normal left ventricular dimension and systolic function with ejection fraction of 50%. 2. Normal right ventricular dimension and systolic function. 3. Mild biatrial enlargement. 4. Normal left atrial appendage. 5. Intact interatrial septum. 6. Trileaflet aortic valve without stenosis or regurgitation. 7. Mildly thickened anterior as well as posterior mitral leaflet with evidence of moderate mitral regurgitation by color-flow Doppler as well as by semi-quantitative as well as quantitative measurements. 8. Normal tricuspid valve and pulmonic valve. 9. Normal aortic root dimension. 10.No evidence of pericardial effusion. MMODL / IJN: [id number] /
[2018-12-09] MEDS ORDERED: HYDROmorphone 1 MG/ML 1 ML SYRINGE IVP ONE (12:50)
[2018-12-09] MEDS ORDERED: IOPAMIDOL-370 125ML BTL INJ ONE (12:57)
[2018-12-09] MEDS ORDERED: RX INFO: IV CONTRAST WAS GIVEN 1 EACH MISC MISCELLANE PRN (13:03)
[2018-12-09] MEDS ORDERED: ALBUTEROL NEBULIZED 2.5 MG/3 ML INHALATION PRN (13:04)
[2018-12-09] MEDS ORDERED: SODIUM CHLORIDE 0.9% 1,000 ML IV SCH (13:15)
[2018-12-09] MEDS ORDERED: ERGOCALCIFEROL 50,000 UNIT CAP PO SCH (14:00)
[2018-12-09] MEDS ORDERED: INSULIN DETEMIR (LEVEMIR) 100 UNIT/ML SYR SQ SCH (14:00)
--- NOTE | 2018-12-09 14:07 | CC ---
CARDIAC CATHETERIZATION REPORT DATE OF SERVICE: 12/09/2018 PERFORMING PHYSICIAN: Ananda Becerril MD, Powder Line Repairer. PROCEDURE PERFORMED: 1. Selective right and left coronary angiogram. 2. Left heart catheterization. INDICATION: This is a 48-year-old female patient who was admitted recently to the hospital with shortness of breath and was diagnosed with pneumonia. She underwent an echocardiogram which revealed cardiomyopathy with EF of 45% and severe mitral regurgitation. APPROACH: Right common femoral artery. COMPLICATION: None. LEVEL OF SEDATION: Moderate with sedation length of 40 minutes. PROCEDURE DESCRIPTION: After obtaining an informed consent, the patient was brought to the cardiac label stitcher. The right common femoral artery was cannulated using micropuncture technique, the micropuncture wire passed easily, then I placed a 6-[place] sheath. I did selective right and left coronary angiogram using JL3 and JL3.5 catheters. Left heart catheterization was performed using the JR4 catheter which flipped into the LV, then I did pullback across the aortic valve. The procedure was completed without any complication. SELECTIVE CORONARY ANGIOGRAM: 1. The right coronary artery is a large caliber vessel and it is a dominant vessel. It has diffuse disease up to about 40% to 50% in the midportion. 2. The left main appeared to be calcified with mild disease only. It bifurcates into left circumflex, ramus intermedius, and left anterior descending artery. 3. The left circumflex is a large caliber vessel, it is a codominant vessel. The proximal circumflex appeared to be normal, the mid circumflex is normal and gives rise into an OM branch which has mild disease only. The circumflex distally is normal and bifurcates into PDA and PLV branches, both appeared to be angiographically normal. 4. The ramus intermedius is a moderate caliber vessel and seems to be angiographically normal. 5. The LAD, the proximal LAD appeared to be angiographically normal. It gives rise into a large diagonal branch which has a very early takeoff, which has intermediate disease in the proximal portion. The mid LAD appeared to be normal. The LAD distally appeared to have mild disease only. HEMODYNAMICS: The left ventricular end-diastolic pressure was 12 mmHg without significant gradient across the aortic valve. CONCLUSION: 1. Calcified right and left coronary systems. 2. Mild to moderate nonobstructive coronary artery disease. POSTPROCEDURE MANAGEMENT: 1. Aggressive cholesterol control. 2. Risk factors modifications. 3. Follow up with the patient. MMODL / IJN: [id number] /
[2018-12-09 14:25] LABS: Glucose,Whole Blood 144 mg/dL (75-99)
[2018-12-09 15:07] VITALS: BMI 25.2
[2018-12-09] MEDS: glipiZIDE 10 MG TAB PO SCH (15:53)
[2018-12-09 16:32] LABS: Glucose,Whole Blood 232 mg/dL (75-99)
[2018-12-09] MEDS: IPRATROPIUM 0.5 MG/2.5 ML NEBU INHALATION SCH (19:06)
[2018-12-09 19:45] LABS: Glucose,Whole Blood 398 mg/dL (75-99)
[2018-12-09] MEDS ORDERED: ATORVASTATIN 80 MG TAB PO SCH (21:00)
[2018-12-09] MEDS ORDERED: guaiFENesin 600 MG TABLET.ER PO SCH (21:00)
[2018-12-09] MEDS ORDERED: METOPROLOL SUCCINATE (ER) 100 MG TAB.ER.24H PO SCH (21:00)
[2018-12-09] MEDS: hydrALAZINE HCL 25 MG TAB PO SCH (21:48)
[2018-12-09] MEDS: FUROSEMIDE 20 MG TAB PO SCH ×2 (21:48→21:51)
[2018-12-09] MEDS: VARENICLINE 1 MG TAB PO SCH (21:58)
[2018-12-09] MEDS: lamoTRIgine 25 MG TAB PO SCH (21:58)
[2018-12-09] MEDS: INSULIN ASPART (NovoLOG) 100 UNIT/ML VIAL SQ SCH (22:00)
[2018-12-10 00:57] LABS: Glucose,Whole Blood 54 mg/dL (75-99)
[2018-12-10 01:24] LABS: Glucose,Whole Blood 89 mg/dL (75-99)
[2018-12-10 04:23] LABS: Glucose,Whole Blood 149 mg/dL (75-99)
[2018-12-10 06:43] LABS: Glucose,Whole Blood 92 mg/dL (75-99)
[2018-12-10] MEDS: IPRATROPIUM 0.5 MG/2.5 ML NEBU INHALATION SCH (07:08)
[2018-12-10 07:19] VITALS: BP 153/64; PULSE 61; RESP 18; TEMP 98.3
[2018-12-10] MEDS ORDERED: INSULIN ASPART (NovoLOG) 100 UNIT/ML VIAL SQ SCH (07:30)
[2018-12-10] MEDS: INSULIN ASPART (NovoLOG) 100 UNIT/ML VIAL SQ SCH (08:05)
--- NOTE | 2018-12-10 08:12 | P.DS ---
Providers Date of admission: December 092018 Attending physician: Ananda Becerril Primary care physician: Tamika Pratt MD Hospital Course: This is a 48-year-old female patient was admitted to the hospital yesterday and underwent transesophageal echocardiogram as well as heart catheterization for further evaluation of severe mitral regurgitation by transthoracic echocardiogram. The transesophageal echocardiogram revealed moderate mitral regurgitation. The heart catheterization revealed mild to moderate nonobstructive coronary artery disease. I kept the patient overnight because we have difficulty in accessing the right common femoral artery. The patient did have aortobifem surgery. I did not pursue a right radial approach on her because she has advanced chronic kidney disease and I want to use a minimal amount of contrast. On follow-up with her today, she is asymptomatic. The right groin is soft with mild tenderness. No discrete hematomas noted. I advised that the patient can be discharged home from the cardiac standpoint of view and I told the patient not to carry any heavy materials and to put her right hand on the groin when she coughs when she sneezes as well. I am going to follow-up with the patient next week. Plan - Discharge Summary Discharge Rx Participant: Yes New Discharge Prescriptions: Continue Clopidogrel Bisulfate [Plavix] 75 mg PO DAILY Loratadine [Claritin] 10 mg PO DAILY lamoTRIgine [LaMICtal] 25 mg PO BID Ferrous Sulfate [Iron (65 MG Elemental)] 325 mg PO DAILY Ergocalciferol (Vitamin D2) [Drisdol] 50,000 unit PO Q14D Citalopram Hydrobromide [CeleXA] 20 mg PO DAILY Atorvastatin [Lipitor] 80 mg PO HS Albuterol Inhaler [Ventolin Hfa Inhaler] 1 - 2 puff INHALATION RT-Q6H PRN PRN Reason: Shortness Of Breath amLODIPine [Norvasc] 10 mg PO DAILY Famotidine [Pepcid] 40 mg PO DAILY Isosorbide Mononitrate ER [Imdur] 60 mg PO DAILY #30 tab.er.24h Albuterol Nebulized [Ventolin Nebulized] 2.5 mg INHALATION RT-Q6H PRN PRN Reason: Shortness Of Breath hydrALAZINE HCL 25 mg PO BID Insulin Glargine,Hum.rec.anlog [Basaglar Kwikpen U-100] 22 units SQ DAILY@1400 Allopurinol [Zyloprim] 100 mg PO DAILY Metoprolol Succinate [Toprol XL] 100 mg PO HS glipiZIDE [Glucotrol] 10 mg PO AC-BID Umeclidinium [place] [Incruse Ellipta] 62.5 mcg INHALATION RT-HS Varenicline [Chantix Continuing Pack] 1 mg PO BID guaiFENesin [Mucinex] 1,200 mg PO Q12HR #10 tablet.er Furosemide [Lasix] 120 mg PO DAILY #30 tablet Furosemide [Lasix] 60 mg PO HS 30 Days tablet Aspirin 81 mg PO DAILY Discharge Medication List Clopidogrel Bisulfate [Plavix] 75 mg PO DAILY 01/21/15 [History] Ergocalciferol (Vitamin D2) [Drisdol] 50,000 unit PO Q14D 01/21/15 [History] Ferrous Sulfate [Iron (65 MG Elemental)] 325 mg PO DAILY 01/21/15 [History] Loratadine [Claritin] 10 mg PO DAILY 01/21/15 [History] lamoTRIgine [LaMICtal] 25 mg PO BID 01/21/15 [History] Albuterol Inhaler [Ventolin Hfa Inhaler] 1 - 2 puff INHALATION RT-Q6H PRN 06/30/17 [History] Atorvastatin [Lipitor] 80 mg PO HS 06/30/17 [History] Citalopram Hydrobromide [CeleXA] 20 mg PO DAILY 06/30/17 [History] Famotidine [Pepcid] 40 mg PO DAILY 06/18/18 [History] amLODIPine [Norvasc] 10 mg PO DAILY 06/18/18 [History] Isosorbide Mononitrate ER [Imdur] 60 mg PO DAILY #30 tab.er.24h 06/22/18 [Rx] Albuterol Nebulized [Ventolin Nebulized] 2.5 mg INHALATION RT-Q6H PRN 07/02/18 [History] hydrALAZINE HCL 25 mg PO BID 07/02/18 [History] Insulin Glargine,Hum.rec.anlog [Basaglar Kwikpen U-100] 22 units SQ DAILY@1400 07/03/18 [History] Allopurinol [Zyloprim] 100 mg PO DAILY 08/30/18 [History] Metoprolol Succinate [Toprol XL] 100 mg PO HS 10/08/18 [History] Umeclidinium [place] [Incruse Ellipta] 62.5 mcg INHALATION RT-HS 10/08/18 [History] glipiZIDE [Glucotrol] 10 mg PO AC-BID 10/08/18 [History] Varenicline [Chantix Continuing Pack] 1 mg PO BID 10/25/18 [History] Furosemide [Lasix] 60 mg PO HS 30 Days tablet 11/02/18 [Rx] Furosemide [Lasix] 120 mg PO DAILY #30 tablet 11/02/18 [Rx] guaiFENesin [Mucinex] 1,200 mg PO Q12HR #10 tablet.er 11/02/18 [Rx] Aspirin 81 mg PO DAILY 12/05/18 [History] Follow up Appointment(s)/Referral(s): Ananda Becerril MD [STAFF PHYSICIAN] - 1 Week
[2018-12-10] MEDS: glipiZIDE 10 MG TAB PO SCH (08:27)
[2018-12-10] MEDS: lamoTRIgine 25 MG TAB PO SCH (08:27)
[2018-12-10] MEDS: VARENICLINE 1 MG TAB PO SCH (08:28)
[2018-12-10] MEDS: hydrALAZINE HCL 25 MG TAB PO SCH (08:28)
[2018-12-10] MEDS ORDERED: amLODIPine 10 MG TAB PO SCH (09:00)
[2018-12-10] MEDS ORDERED: LORATADINE 10 MG TAB PO SCH (09:00)
[2018-12-10] MEDS ORDERED: CITALOPRAM HYDROBROMIDE 20 MG TAB PO SCH (09:00)
[2018-12-10] MEDS ORDERED: ISOSORBIDE MONONITRATE ER 60 MG TAB.ER.24H PO SCH (09:00)
[2018-12-10] MEDS ORDERED: CLOPIDOGREL 75 MG TAB PO SCH (09:00)
[2018-12-10] MEDS ORDERED: ASPIRIN 81 MG PO SCH (09:00)
[2018-12-10] MEDS ORDERED: ALLOPURINOL 100 MG TAB PO SCH (09:00)
[2018-12-10] MEDS ORDERED: FAMOTIDINE 20 MG TAB PO SCH (09:00)
[2018-12-10] MEDS ORDERED: FERROUS SULFATE 325 MG TAB PO SCH (09:00)
[2018-12-10] MEDS ORDERED: FUROSEMIDE 40 MG TAB PO SCH (09:00)
== END 2018-12-10 09:43 | disposition home or self-care (01) ==
LOC: CATHCVL 07:06 → 1SOBS 13:05 → CATHCVL 12-10 09:43
PROVIDERS: ATTEND Internal Medicine Interventional Cardiology
DX: I08.1 Rheumatic disorders of both mitral and tricuspid valves (principal); I25.10 Atherosclerotic heart disease of native coronary artery without angina pectoris; I25.84 Coronary atherosclerosis due to calcified coronary lesion; I12.0 Hypertensive chronic kidney disease with stage 5 chronic kidney disease or end stage renal disease; N18.6 End stage renal disease; I65.23 Occlusion and stenosis of bilateral carotid arteries; Z87.891 Personal history of nicotine dependence; E11.51 Type 2 diabetes mellitus with diabetic peripheral angiopathy without gangrene; E78.5 Hyperlipidemia, unspecified; Z79.02 Long term (current) use of antithrombotics/antiplatelets; Z79.82 Long term (current) use of aspirin; Z79.4 Long term (current) use of insulin; Z79.899 Other long term (current) drug therapy; Z88.0 Allergy status to penicillin
CPT/HCPCS: 94640; 93312; 93320; 93325; 93458; 80048; 85025; C1894; C1769 ×2; J2001; J3010; J1170; Q9967; J2250

== ENCOUNTER 2019-05-22 12:15 | Inpatient (IN) | payer OTHER ==
[2019-05-22] MEDS ORDERED: IPRATROPIUM 0.5 MG/2.5 ML NEBU INHALATION STA (13:23)
[2019-05-22] MEDS ORDERED: methylPREDNISolone SOD SUCCI 125 MG/2 ML VIAL IV STA (13:23)
[2019-05-22] MEDS ORDERED: ALBUTEROL NEBULIZED 2.5 MG/3 ML INHALATION STA (13:23)
[2019-05-22 13:53] LABS: Basophils # (A) 0.1 k/uL (0-0.2); Basophils % (A) 0 %; Eosinophils # (A) 0.5 k/uL (0-0.7); Eosinophils % (A) 3 %; HCT 33.4 % (34.0-46.0); HGB 10.9 gm/dL (11.4-16.0); Lymphocytes # (A) 0.4 k/uL (1.0-4.8); Lymphocytes % (A) 3 %; MCH 31.9 pg (25.0-35.0); MCHC 32.7 g/dL (31.0-37.0); MCV 97.8 fL (80.0-100.0); Mean Platelet Volume 8.8; Monocytes # (A) 0.6 k/uL (0-1.0); Monocytes % (A) 4 %; Neutrophils # (A) 13.6 k/uL (1.3-7.7); Neutrophils % (A) 89 %; Platelet Count 299 k/uL (150-450); RBC 3.41 m/uL (3.80-5.40); RDW 14.5 % (11.5-15.5); WBC 15.3 k/uL (3.8-10.6)
[2019-05-22 14:02] LABS: Prothrombin Time 10.5 sec (9.0-12.0)
[2019-05-22 14:08] LABS: Albumin 3.5 g/dL (3.5-5.0); Calcium 8.9 mg/dL (8.4-10.2); Potassium 4.2 mmol/L (3.5-5.1); Total Bilirubin 0.6 mg/dL (0.2-1.3)
[2019-05-22] MEDS ORDERED: cefTRIAXone IN SWFI 1,000 MG/10 ML SYRINGE IVP STA (14:09)
[2019-05-22] MEDS ORDERED: AZITHROMYCIN 500 MG in SODIUM CHLORIDE 0.9% 250 ML IVPB STA (14:09)
[2019-05-22] MEDS ORDERED: SODIUM CHLORIDE 0.9% 500 ML 500 ML IV ONE (14:09)
--- NOTE | 2019-05-22 14:09 | ED ---
General Adult HPI - General Chief complaint: Shortness of Breath Stated complaint: ALEENA Time Seen by Provider: 05/22/19 13:09 Source: patient, RN notes reviewed, old records reviewed Mode of arrival: ambulatory Limitations: no limitations - History of Present Illness Initial comments: 48-year-old female presenting for evaluation of cough and dyspnea. Patient has had a productive cough of yellow sputum for the past one week. She's had subjective fever and chills. She denies central chest pain. She states she has some scapular pain bilaterally which is worse with cough. Denies lower extremity pain or swelling. She has a past medical history COPD, chronic kidney disease. She follows with nephrology and pulmonology. Denies lower extremity pain or swelling. Denies central chest pain. - Related Data Home Medications Medication Instructions Recorded Confirmed Clopidogrel Bisulfate [Plavix] 75 mg PO DAILY 01/21/15 12/09/18 Ergocalciferol (Vitamin D2) 50,000 unit PO Q14D 01/21/15 12/09/18 [Drisdol] Ferrous Sulfate [Iron (65 MG 325 mg PO DAILY 01/21/15 12/09/18 Elemental)] Loratadine [Claritin] 10 mg PO DAILY 01/21/15 12/09/18 lamoTRIgine [LaMICtal] 25 mg PO BID 01/21/15 12/09/18 Albuterol Inhaler [Ventolin Hfa 1 - 2 puff INHALATION RT-Q6H PRN 06/30/17 12/09/18 Inhaler] Atorvastatin [Lipitor] 80 mg PO HS 06/30/17 12/09/18 Citalopram Hydrobromide [CeleXA] 20 mg PO DAILY 06/30/17 12/09/18 Famotidine [Pepcid] 40 mg PO DAILY 06/18/18 12/09/18 amLODIPine [Norvasc] 10 mg PO DAILY 06/18/18 12/09/18 Albuterol Nebulized [Ventolin 2.5 mg INHALATION RT-Q6H PRN 07/02/18 12/09/18 Nebulized] hydrALAZINE HCL 25 mg PO BID 07/02/18 12/09/18 Insulin Glargine,Hum.rec.anlog 22 units SQ DAILY@1400 07/03/18 12/09/18 [Justin Ash U-100] Allopurinol [Zyloprim] 100 mg PO DAILY 08/30/18 12/09/18 Metoprolol Succinate [Toprol XL] 100 mg PO HS 10/08/18 12/09/18 Umeclidinium [place] [Incruse 62.5 mcg INHALATION RT-HS 10/08/18 12/09/18 Ellipta] glipiZIDE [Glucotrol] 10 mg PO AC-BID 10/08/18 12/09/18 Varenicline [Chantix Continuing 1 mg PO BID 10/25/18 12/09/18 Pack] Aspirin 81 mg PO DAILY 12/05/18 12/09/18 Previous Rx's Medication Instructions Recorded Isosorbide Mononitrate ER [Imdur] 60 mg PO DAILY #30 tab.er.24h 06/22/18 Furosemide [Lasix] 60 mg PO HS 30 Days tablet 11/02/18 Furosemide [Lasix] 120 mg PO DAILY #30 tablet 11/02/18 guaiFENesin [Mucinex] 1,200 mg PO Q12HR #10 tablet.er 11/02/18 Allergies Allergy/AdvReac Type Severity Reaction Status Date / Time bee venom protein (honey bee) Allergy Rash/Hives Verified 05/22/19 12:38 Penicillins Allergy Rash/Hives Verified 05/22/19 12:38 Review of Systems ROS Statement: Those systems with pertinent positive or pertinent negative responses have been documented in the HPI. ROS Other: All systems not noted in ROS Statement are negative. Past Medical History Past Medical History: Cancer, Heart Failure, COPD, CVA/TIA, Diabetes Mellitus, Hyperlipidemia, Hypertension, Renal Disease, Vascular Disorder Additional Past Medical History / Comment(s): CHF, valvular heart disease with MR, peripheral vascular disease, hypertension, hyperlipidemia, COPD, diabetes mellitus II. CML. 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 History of Any Multi-Drug Resistant Organisms: None Reported Past Surgical History: Appendectomy, Bowel Resection, Orthopedic Surgery, Tubal Ligation Additional Past Surgical History / Comment(s): Hx of colostomy and reversal,rotator cuff repair on Left,hx of bifem bypass. Colonoscopy 2012 Past Anesthesia/Blood Transfusion Reactions: No Reported Reaction Past Psychological History: Anxiety, Depression Smoking Status: Former smoker Past Alcohol Use History: None Reported Past Drug Use History: Marijuana - Past Family History Mother Family Medical History: Congestive Heart Failure (CHF), Diabetes Mellitus Brother(s) Additional Family Medical History / Comment(s): CABG Sister(s) Family Medical History: CVA/TIA Additional Family Medical History / Comment(s): Maternal aunt had breast cancer. General Exam Limitations: no limitations General appearance: alert, in no apparent distress Head exam: Present: atraumatic, normocephalic Eye exam: Present: normal appearance, PERRL ENT exam: Present: normal exam Neck exam: Present: normal inspection. Absent: tenderness, meningismus Respiratory exam: Present: respiratory distress, wheezes, rhonchi, decreased breath sounds Cardiovascular Exam: Present: regular rate, normal rhythm GI/Abdominal exam: Present: soft. Absent: distended, tenderness, guarding Extremities exam: Present: normal inspection, normal capillary refill. Absent: pedal edema, calf tenderness Back exam: Present: normal inspection, full ROM. Absent: tenderness, CVA tender ness (R), CVA tenderness (L) Neurological exam: Present: alert, oriented X3, CN II-XII intact. Absent: motor sensory deficit Psychiatric exam: Present: normal affect, normal mood Skin exam: Present: warm, dry, intact. Absent: cyanosis, diaphoretic Course Vital Signs 05/22/19 05/22/19 05/22/19 12:36 13:42 14:04 Temperature 98.5 F Pulse Rate 91 82 88 Respiratory 26 H Rate Blood Pressure 152/69 O2 Sat by Pulse 86 L Oximetry 05/22/19 14:31 Temperature 98.6 F Pulse Rate 96 Respiratory 18 Rate Blood Pressure 162/68 O2 Sat by Pulse 98 Oximetry EKG Findings - EKG Comments: EKG Findings:: EKG: Normal sinus rhythm, right atrial enlargement, right axis deviation, pulmonary disease pattern, no ST segment elevation, rate of 87, CO interval 184, QRS duration 86, QTC 493 Medical Decision Making - Medical Decision Making 48-year-old female history of COPD presenting with worsening cough and dyspnea. Patient is hypoxic upon arrival with diffuse wheezing and rhonchi. She has an elevated white blood cell count of 15, stable hemoglobin, chest x-ray which is negative for pulmonary edema or [place] pneumonia. She has a lactic acid of 2.5 likely secondary to hypoxia. She has creatinine which is at baseline 2.36. She's influenza negative. She's given a dose of IV antibiotics as well as IV steroids, and albuterol and Atrovent in the emergency department. On reevaluation she has some improvement Will require admission for continued treatment of COPD exacerbation. Case is discussed with the admitting physician Dr. Costa - Lab Data Result diagrams: 05/22/19 13:30 05/22/19 13:30 Lab Results 05/22/19 05/22/19 05/22/19 Range/Units 13:30 13:30 13:30 WBC 15.3 H (3.8-10.6) k/uL RBC 3.41 L (3.80-5.40) m/uL Hgb 10.9 L (11.4-16.0) gm/dL Hct 33.4 L (34.0-46.0) % MCV 97.8 (80.0-100.0) fL MCH 31.9 (25.0-35.0) pg MCHC 32.7 (31.0-37.0) g/dL RDW 14.5 (11.5-15.5) % Plt Count 299 (150-450) k/uL Neutrophils % 89 % Lymphocytes % 3 % Monocytes % 4 % Eosinophils % 3 % Basophils % 0 % Neutrophils # 13.6 H (1.3-7.7) k/uL Lymphocytes # 0.4 L (1.0-4.8) k/uL Monocytes # 0.6 (0-1.0) k/uL Eosinophils # 0.5 (0-0.7) k/uL Basophils # 0.1 (0-0.2) k/uL PT (9.0-12.0) sec INR (<1.2) APTT (22.0-30.0) sec Sodium (137-145) mmol/L Potassium (3.5-5.1) mmol/L Chloride (98-107) mmol/L Carbon Dioxide (22-30) mmol/L Anion Gap mmol/L BUN (7-17) mg/dL Creatinine (0.52-1.04) mg/dL Est GFR (CKD-EPI)AfAm (>60 ml/min/1.73 sqM) Est GFR (CKD-EPI)NonAf (>60 ml/min/1.73 sqM) Glucose (74-99) mg/dL Plasma Lactic Acid Tres 2.5 H* (0.7-2.0) mmol/L Calcium (8.4-10.2) mg/dL Total Bilirubin (0.2-1.3) mg/dL AST (14-36) U/L ALT (4-34) U/L Alkaline Phosphatase (38-126) U/L Troponin I (0.000-0.034) ng/mL NT-Pro-B Natriuret Pep pg/mL Total Protein (6.3-8.2) g/dL Albumin (3.5-5.0) g/dL Influenza Type A RNA Not Detected (Not Detectd) Influenza Type B (PCR) Not Detected (Not Detectd) 05/22/19 05/22/19 05/22/19 Range/Units 13:30 13:30 13:30 WBC (3.8-10.6) k/uL RBC (3.80-5.40) m/uL Hgb (11.4-16.0) gm/dL Hct (34.0-46.0) % MCV (80.0-100.0) fL MCH (25.0-35.0) pg MCHC (31.0-37.0) g/dL RDW (11.5-15.5) % Plt Count (150-450) k/uL Neutrophils % % Lymphocytes % % Monocytes % % Eosinophils % % Basophils % % Neutrophils # (1.3-7.7) k/uL Lymphocytes # (1.0-4.8) k/uL Monocytes # (0-1.0) k/uL Eosinophils # (0-0.7) k/uL Basophils # (0-0.2) k/uL PT 10.5 (9.0-12.0) sec INR 1.0 (<1.2) APTT 25.0 (22.0-30.0) sec Sodium 137 (137-145) mmol/L Potassium 4.2 (3.5-5.1) mmol/L Chloride 105 (98-107) mmol/L Carbon Dioxide 21 L (22-30) mmol/L Anion Gap 11 mmol/L BUN 34 H (7-17) mg/dL Creatinine 2.36 H (0.52-1.04) mg/dL Est GFR (CKD-EPI)AfAm 27 (>60 ml/min/1.73 sqM) Est GFR (CKD-EPI)NonAf 23 (>60 ml/min/1.73 sqM) Glucose 174 H (74-99) mg/dL Plasma Lactic Acid Tres (0.7-2.0) mmol/L Calcium 8.9 (8.4-10.2) mg/dL Total Bilirubin 0.6 (0.2-1.3) mg/dL AST 19 (14-36) U/L ALT 12 (4-34) U/L Alkaline Phosphatase 124 (38-126) U/L Troponin I (0.000-0.034) ng/mL NT-Pro-B Natriuret Pep 69572 pg/mL Total Protein 6.0 L (6.3-8.2) g/dL Albumin 3.5 (3.5-5.0) g/dL Influenza Type A RNA (Not Detectd) Influenza Type B (PCR) (Not Detectd) 05/22/19 Range/Units 13:30 WBC (3.8-10.6) k/uL RBC (3.80-5.40) m/uL Hgb (11.4-16.0) gm/dL Hct (34.0-46.0) % MCV (80.0-100.0) fL MCH (25.0-35.0) pg MCHC (31.0-37.0) g/dL RDW (11.5-15.5) % Plt Count (150-450) k/uL Neutrophils % % Lymphocytes % % Monocytes % % Eosinophils % % Basophils % % Neutrophils # (1.3-7.7) k/uL Lymphocytes # (1.0-4.8) k/uL Monocytes # (0-1.0) k/uL Eosinophils # (0-0.7) k/uL Basophils # (0-0.2) k/uL PT (9.0-12.0) sec INR (<1.2) APTT (22.0-30.0) sec Sodium (137-145) mmol/L Potassium (3.5-5.1) mmol/L Chloride (98-107) mmol/L Carbon Dioxide (22-30) mmol/L Anion Gap mmol/L BUN (7-17) mg/dL Creatinine (0.52-1.04) mg/dL Est GFR (CKD-EPI)AfAm (>60 ml/min/1.73 sqM) Est GFR (CKD-EPI)NonAf (>60 ml/min/1.73 sqM) Glucose (74-99) mg/dL Plasma Lactic Acid Tres (0.7-2.0) mmol/L Calcium (8.4-10.2) mg/dL Total Bilirubin (0.2-1.3) mg/dL AST (14-36) U/L ALT (4-34) U/L Alkaline Phosphatase (38-126) U/L Troponin I <0.012 (0.000-0.034) ng/mL NT-Pro-B Natriuret Pep pg/mL Total Protein (6.3-8.2) g/dL Albumin (3.5-5.0) g/dL Influenza Type A RNA (Not Detectd) Influenza Type B (PCR) (Not Detectd) Critical Care Time Critical Care Time: Yes Total Critical Care Time: 35 Disposition Clinical Impression: COPD exacerbation, Chronic renal failure Disposition: HOME SELF-CARE Condition: Stable Is patient prescribed a controlled substance at d/c from ED?: No Referrals: Kartik Guzman [Primary Care Provider] - 1-2 days Decision to Admit Reason: Admit from EC Decision Date: 05/22/19 Decision Time: 15:23
--- NOTE | 2019-05-22 14:46 | XR ---
EXAMINATION TYPE: XR chest 2V DATE OF EXAM: 05/22/2019 COMPARISON: Chest x-ray November 01, 2018 HISTORY: Chest x-ray November 01, 2018. TECHNIQUE: Frontal and lateral views of the chest are obtained. FINDINGS: There is chronic parenchymal changes without suspicious focal air space opacity, pleural e ffusion, or pneumothorax seen. The cardiac silhouette size remains within normal limits. Overlying E KG leads. The osseous structures are intact. IMPRESSION: No acute cardiopulmonary process. No significant change from prior.
[2019-05-22] MEDS ORDERED: IPRATROPIUM-ALBUTEROL 3 ML NEB INHALATION PRN (15:19)
[2019-05-22] MEDS ORDERED: IBUPROFEN 400 MG TAB PO PRN (16:25)
[2019-05-22] MEDS ORDERED: ACETAMINOPHEN TAB 325 MG TAB PO PRN (16:25)
[2019-05-22] MEDS ORDERED: MELATONIN 3 MG TABLET PO PRN (16:25)
[2019-05-22] MEDS ORDERED: NALOXONE 0.4 MG/ML 1 ML VIAL IV PRN (16:25)
--- NOTE | 2019-05-22 16:31 | P.HPIM ---
History of Present Illness H&P Date: 05/22/19 Chief Complaint: shortness of breath Patient is a 48-year-old female with past medical history of COPD, systolic congestive heart failure with last ejection fraction of 40% on 12/06/2018, retention, diabetes mellitus type 2 on orals, and dyslipidemia who presented to the emergency department with complaints of cough and shortness of breath. In the ER she underwent an extensive evaluation. Her respiratory rate was found to be elevated at 26 and she was hypoxic at 86% on room air. Laboratory analysis showed an elevated white blood cell count of 15.3, hemoglob in 10.9, creatinine was at baseline of 2.36, lactic acid mildly elevated at 2.5, and influenza was negative. Chest x-ray showed no acute process. Her BNP was elevated at 11,900. She received steroids, bronchodilators, and antibiotics. She was admitted for further treatment of her acute exacerbation of COPD along with acute bronchitis. Patient seen and examined in the ER. She states that she has been having worsening cough and shortness of breath over the last 1 week. She saw her PCP exactly one week ago and was not feeling well. At that point in time he did not initiate any antibiotics or steroids. She went and saw her nephrology nurse practitioner on 05/19 and was placed on Levaquin and was told to stop her Lasix due to dehydration. She reports that she has had worsening shortness of breath that is worse with exertion and better with rest. It isn't so severe that she has been unable to dress herself without becoming significantly winded. She also reports wheezing. She has a cough productive of bright yellow sputum. She reports that she had a fever of 101.9 this morning. She denies any chest pain or palpitations. She reports that she has been eating and drinking well. She states she started smoking again approximately 4 months ago. She also reports that she had diarrhea for several days but this has since resolved. She denies any sick contacts. She has been using her nebulizer 3 times daily without significant relief in her shortness of breath. Her last hospital stay was for pneumonia in October 2018. Review of Systems Pertinent positives and negatives as discussed in HPI, a complete review of systems was performed and all other systems are negative. Past Medical History Past Medical History: Cancer, Heart Failure, COPD, CVA/TIA, Diabetes Mellitus, Hyperlipidemia, Hypertension, Renal Disease, Vascular Disorder Additional Past Medical History / Comment(s): CHF, valvular heart disease with MR, peripheral vascular disease, hypertension, hyperlipidemia, COPD, diabetes mellitus II. CML. 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 History of Any Multi-Drug Resistant Organisms: None Reported Past Surgical History: Appendectomy, Bowel Resection, Orthopedic Surgery, Tubal Ligation Additional Past Surgical History / Comment(s): Hx of colostomy and reversal,rotator cuff repair on Left,hx of bifem bypass. Colonoscopy 2012, cardiac catheterization Past Anesthesia/Blood Transfusion Reactions: No Reported Reaction Past Psychological History: Anxiety, Depression Smoking Status: Current every day smoker Past Alcohol Use History: None Reported Past Drug Use History: Marijuana Additional History: has a nebulized, no longer on home O2, no assistive devices for ambulation - Past Family History Mother Family Medical History: Congestive Heart Failure (CHF), Diabetes Mellitus Brother(s) Additional Family Medical History / Comment(s): CABG Sister(s) Family Medical History: CVA/TIA Additional Family Medical History / Comment(s): Maternal aunt had breast cancer. Medications and Allergies Home Medications Medication Instructions Recorded Confirmed Type Clopidogrel Bisulfate [Plavix] 75 mg PO DAILY 01/21/15 12/09/18 History Ergocalciferol (Vitamin D2) 50,000 unit PO Q14D 01/21/15 12/09/18 History [Drisdol] Ferrous Sulfate [Iron (65 MG 325 mg PO DAILY 01/21/15 12/09/18 History Elemental)] Loratadine [Claritin] 10 mg PO DAILY 01/21/15 12/09/18 History lamoTRIgine [LaMICtal] 25 mg PO BID 01/21/15 12/09/18 History Albuterol Inhaler [Ventolin Hfa 1 - 2 puff INHALATION RT-Q6H PRN 06/30/17 12/09/18 History Inhaler] Atorvastatin [Lipitor] 80 mg PO HS 06/30/17 12/09/18 History Citalopram Hydrobromide [CeleXA] 20 mg PO DAILY 06/30/17 12/09/18 History Famotidine [Pepcid] 40 mg PO DAILY 06/18/18 12/09/18 History amLODIPine [Norvasc] 10 mg PO DAILY 06/18/18 12/09/18 History Isosorbide Mononitrate ER [Imdur] 60 mg PO DAILY #30 tab.er.24h 06/22/18 12/09/18 Rx Albuterol Nebulized [Ventolin 2.5 mg INHALATION RT-Q6H PRN 07/02/18 12/09/18 History Nebulized] hydrALAZINE HCL 25 mg PO BID 07/02/18 12/09/18 History Insulin Glargine,Hum.rec.anlog 22 units SQ DAILY@1400 07/03/18 12/09/18 History [Basaglar Kwikpen U-100] Allopurinol [Zyloprim] 100 mg PO DAILY 08/30/18 12/09/18 History Metoprolol Succinate [Toprol XL] 100 mg PO HS 10/08/18 12/09/18 History Umeclidinium [place] [Incruse 62.5 mcg INHALATION RT-HS 10/08/18 12/09/18 History Ellipta] glipiZIDE [Glucotrol] 10 mg PO AC-BID 10/08/18 12/09/18 History Varenicline [Chantix Continuing 1 mg PO BID 10/25/18 12/09/18 History Pack] Furosemide [Lasix] 60 mg PO HS 30 Days tablet 11/02/18 12/09/18 Rx Furosemide [Lasix] 120 mg PO DAILY #30 tablet 11/02/18 12/09/18 Rx guaiFENesin [Mucinex] 1,200 mg PO Q12HR #10 tablet.er 11/02/18 12/09/18 Rx Aspirin 81 mg PO DAILY 12/05/18 12/09/18 History Allergies Allergy/AdvReac Type Severity Reaction Status Date / Time bee venom protein (honey bee) Allergy Rash/Hives Verified 05/22/19 12:38 Penicillins Allergy Rash/Hives Verified 05/22/19 12:38 Physical Exam Osteopathic Statement: *. No significant issues noted on an osteopathic structural exam other than those noted in the History and Physical/Consult. Vitals: Vital Signs Temp Pulse Resp BP Pulse Ox 05/22/19 14:31 98.6 F 96 18 162/68 98 05/22/19 14:04 88 05/22/19 13:42 82 05/22/19 12:36 98.5 F 91 26 H 152/69 86 L Intake and Output 05/22/19 05/22/19 05/22/19 06:59 14:59 22:59 Other: Weight 66.497 kg General: non toxic, no distress, appears older than stated age, normal weight Derm: no unusual rashes/lesions no unusual ecchymoses, warm, dry Head: atraumatic, normocephalic, symmetric Eyes: EOMI, no lid lag, anicteric sclera, pupils equal round reactive to light ENT: Nose and ears atraumatic, no thrush, no pharyngeal erythema Neck: No thyromegaly, no cervical lymphadenopathy, trachea midline, supple Mouth: no lip lesion, mucus membranes dry Cardiovascular: S1S2 reg, no murmur, positive posterior tibial pulse bilateral, no edema, capillary refill less than 2 seconds Lungs: Expiratory wheezes on anterior chest, decreased breath sounds bilateral, no rhonchi, no rales , no accessory muscle use Abdominal: soft, nontender to palpation, no guarding, no appreciable organome mello, normal bowel sounds Ext: no gross muscle atrophy, muscle strength 5 out of 5 in all 4 extremities grossly, no contractures, Neuro: CN II-XI grossly intact, light touch intact all 4 extremities, finger to nose within normal limits, Psych: Alert, oriented, appropriate affect Results CBC & Chem 7: 05/22/19 13:30 05/22/19 13:30 Labs: Abnormal Lab Results - Last 24 Hours (Table) 05/22/19 05/22/19 05/22/19 Range/Units 13:30 13:30 13:30 WBC 15.3 H (3.8-10.6) k/uL RBC 3.41 L (3.80-5.40) m/uL Hgb 10.9 L (11.4-16.0) gm/dL Hct 33.4 L (34.0-46.0) % Neutrophils # 13.6 H (1.3-7.7) k/uL Lymphocytes # 0.4 L (1.0-4.8) k/uL Carbon Dioxide 21 L (22-30) mmol/L BUN 34 H (7-17) mg/dL Creatinine 2.36 H (0.52-1.04) mg/dL Glucose 174 H (74-99) mg/dL Plasma Lactic Acid Tres 2.5 H* (0.7-2.0) mmol/L Total Protein 6.0 L (6.3-8.2) g/dL Chest x-ray: report reviewed Thrombosis Risk Factor Assmnt - DVT/VTE Prophylaxis DVT/VTE Prophylaxis: Pharmacologic Prophylaxis ordered Assessment and Plan Assessment: Acute exacerbation of COPD with acute bronchitis with sepsis -Steroids, bronchodilators -Zithromax -Repeat chest x-ray in a.m. -Consult pulmonary -Pulmonary hygiene -Sputum culture -Limited IV fluids secondary to history of systolic congestive heart failure Systolic congestive heart failure with last known ejection fraction of 45% appears clinically compensated -Continue with Lasix -Strict I's and O's, daily weights -Continue with metoprolol, Imdur, Lipitor -Not chronically an MI inhibitor and wont initiate this point in time secondary chronic kidney disease Chronic kidney disease stage IV -Creatinine appears at baseline of 2.36 -Avoid additional nephrotoxic agents -Follow creatinine carefully DM 2 - SSI, follow BS, check A1C - Hold glipizide Lactic acidosis -Suspect secondary to increased work of breathing -Repeat in 6 hours Anemia, chronic -Follow CBC The patient is admitted with an anticipated greater than 2 midnight stay for evaluation of COPD and acute bronchitis with sepsis. Surrogate decision-maker: Son CODE STATUS:Full DVT prophylaxis: SCDs Discussed with: Patient, nursing Anticipated discharge date: 2-[address]: home A total of 65 minutes was spent on the care of this complex patient more than 50% of the time was spent in counseling and care coordination.
[2019-05-22] MEDS: IPRATROPIUM-ALBUTEROL 3 ML NEB INHALATION SCH ×2 (17:01→20:57)
[2019-05-22 17:53] LABS: Glucose,Whole Blood 320 mg/dL (75-99)
[2019-05-22] MEDS: methylPREDNISolone SOD SUCCI 125 MG/2 ML VIAL IV SCH ×2 (18:02→23:20)
[2019-05-22] MEDS: INSULIN ASPART (NovoLOG) 100 UNIT/ML VIAL SQ SCH ×2 (18:02→20:16)
[2019-05-22] MEDS: hydrALAZINE HCL 25 MG TAB PO SCH (20:08)
[2019-05-22] MEDS: guaiFENesin 600 MG TABLET.ER PO SCH (20:08)
[2019-05-22] MEDS: lamoTRIgine 25 MG TAB PO SCH (20:08)
[2019-05-22 20:13] LABS: Glucose,Whole Blood 442 mg/dL (75-99)
[2019-05-22 20:17] LABS: Glucose,Whole Blood 442 mg/dL (75-99)
[2019-05-22] MEDS: BUDESONIDE 0.5 MG/2 ML NEBU INHALATION SCH (20:57)
[2019-05-22] MEDS: FORMOTEROL FUMARATE 20 MCG/2 ML NEBU INHALATION SCH (20:57)
[2019-05-22] MEDS ORDERED: INSULIN DETEMIR (LEVEMIR) 100 UNIT/ML SYR SQ SCH (21:00)
[2019-05-23 01:56] LABS: Hemoglobin A1C 10.1 % (4.0-6.0)
[2019-05-23] MEDS: methylPREDNISolone SOD SUCCI 125 MG/2 ML VIAL IV SCH (05:48)
[2019-05-23] MEDS: FORMOTEROL FUMARATE 20 MCG/2 ML NEBU INHALATION SCH ×2 (06:54→20:33)
[2019-05-23] MEDS: IPRATROPIUM-ALBUTEROL 3 ML NEB INHALATION SCH ×4 (06:54→20:33)
[2019-05-23] MEDS: BUDESONIDE 0.5 MG/2 ML NEBU INHALATION SCH ×2 (06:54→20:33)
[2019-05-23 07:08] LABS: Glucose,Whole Blood 453 mg/dL (75-99)
[2019-05-23] MEDS ORDERED: INSULIN ASPART (NovoLOG) 100 UNIT/ML VIAL SQ ONE ×2 (07:38→12:16)
[2019-05-23] MEDS: METOPROLOL SUCCINATE (ER) 100 MG TAB.ER.24H PO SCH (07:39)
[2019-05-23] MEDS: hydrALAZINE HCL 25 MG TAB PO SCH ×2 (07:39→20:51)
[2019-05-23] MEDS: FAMOTIDINE 20 MG TAB PO SCH (07:39)
[2019-05-23] MEDS: LORATADINE 10 MG TAB PO SCH (07:39)
[2019-05-23] MEDS: CITALOPRAM HYDROBROMIDE 20 MG TAB PO SCH (07:39)
[2019-05-23] MEDS: FERROUS SULFATE 325 MG TAB PO SCH (07:39)
[2019-05-23] MEDS: CLOPIDOGREL 75 MG TAB PO SCH (07:39)
[2019-05-23] MEDS: ATORVASTATIN 80 MG TAB PO SCH (07:39)
[2019-05-23] MEDS: amLODIPine 10 MG TAB PO SCH (07:39)
[2019-05-23] MEDS: ASPIRIN 81 MG PO SCH (07:40)
[2019-05-23] MEDS: lamoTRIgine 25 MG TAB PO SCH ×2 (07:40→20:50)
[2019-05-23] MEDS: ISOSORBIDE MONONITRATE ER 60 MG TAB.ER.24H PO SCH (07:40)
[2019-05-23] MEDS: INSULIN ASPART (NovoLOG) 100 UNIT/ML VIAL SQ SCH ×6 (07:40→20:50)
[2019-05-23] MEDS: guaiFENesin 600 MG TABLET.ER PO SCH ×2 (07:40→20:51)
[2019-05-23] MEDS: ALLOPURINOL 100 MG TAB PO SCH (07:41)
[2019-05-23 09:26] LABS: HCT 31.7 % (34.0-46.0); HGB 10.2 gm/dL (11.4-16.0); MCHC 32.1 g/dL (31.0-37.0); MCV 99.9 fL (80.0-100.0); Macrocytosis Slight; Mean Platelet Volume 9.4; Platelet Count 267 k/uL (150-450); RBC 3.17 m/uL (3.80-5.40); RDW 14.5 % (11.5-15.5)
[2019-05-23] MEDS: predniSONE 20 MG TAB PO SCH (09:30)
[2019-05-23 09:48] LABS: Calcium 8.6 mg/dL (8.4-10.2); Magnesium 2.1 mg/dL (1.6-2.3); Potassium 4.5 mmol/L (3.5-5.1)
--- NOTE | 2019-05-23 11:05 | XR ---
EXAMINATION TYPE: XR chest 1V portable DATE OF EXAM: 05/23/2019 CLINICAL HISTORY: History of COPD with cough and congestion, possible pneumonia. TECHNIQUE: Single AP portable upright view of the chest is obtained. COMPARISON: Chest x-ray from one day earlier and older studies. FINDINGS: No suspicious new focal airspace opacity, pleural effusion, or pneumothorax is seen bilate rally. Cardiac silhouette size is upper limits of normal on current study. Osseous structures are int act. IMPRESSION: No new suspicious acute focal airspace opacity. No significant change from one day veronica bruno
[2019-05-23] MEDS ORDERED: AZITHROMYCIN 500 MG in SODIUM CHLORIDE 0.9% 250 ML IVPB SCH (12:00)
[2019-05-23 12:05] LABS: Glucose,Whole Blood 529 mg/dL (75-99)
[2019-05-23 12:05] LABS: Glucose,Whole Blood 509 mg/dL (75-99)
--- NOTE | 2019-05-23 12:23 | CONS ---
CONSULTATION PULMONARY/CRITICAL CARE CONSULTATION: DATE OF SERVICE: 05/23/2009 This is a 48-year-old female who presents to the emergency department with complaints of increasing shortness of breath and cough. The cough is productive of yellow phlegm. She has been not feeling well for about a week or so. It got progressively worse. In addition, she complains of chest tightness, wheezing, chest congestion, shortness of breath, and fever and chills. The patient was seen in the emergency department, admitted to the hospital for a diagnosis of COPD exacerbation. She denies any nausea, vomiting, or diarrhea. There are no genitourinary complaints. No chest pain or chest pressure. No palpitations or fluttering heartbeat. The patient states that she is feeling a bit better today than she did yesterday when she came in. She initially presented to the emergency department at 12:15 p.m. on May 22, 2019. Unfortunately, the patient continues to smoke cigarettes. Despite counseling, she has gone back to tobacco use. She understands it is causing her lungs to become more diseased and she also realizes that is what is causing these admissions and trips to the doctor. HOME MEDICATIONS: Include Plavix, vitamin D2, iron, Claritin, Lamictal, albuterol inhaler, Lipitor, Celexa, Pepcid, Norvasc, albuterol updrafts, hydralazine, insulin, allopurinol, metoprolol, Glucotrol, Chantix, aspirin, Symbicort, Imdur, Lasix and Mucinex. ALLERGIES: BEE VENOM and PENICILLIN. PAST MEDICAL HISTORY: Positive for CHF, COPD, CVA, diabetes, hyperlipidemia, hypertension, chronic renal failure, valvular heart disease in the form of MR, PV OD, CML, and allergic rhinitis. SURGICAL HISTORY: Includes among other things appendectomy, bowel resection, tubal ligation, colostomy, subsequent reversal of colostomy, rotator cuff repair, bifem bypass, and colonoscopy. SOCIAL HISTORY: Positive for ongoing tobacco use. She denies alcohol. Does smoke marijuana. FAMILY HISTORY: Positive for mother with heart failure, diabetes, a brother with bypass grafting. A sister with stroke and breast cancer. REVIEW OF SYSTEMS: CONSTITUTIONAL: Negative. NEUROLOGIC: Negative. HEENT: Negative. CARDIOVASCULAR: Negative. PULMONARY: Shortness of breath, chest tightness, wheezing, cough, chest congestion, and phlegm production. GI: Negative. : Negative. RHEUMATOLOGIC: Negative. IMMUNOLOGIC: Negative. ENDOCRINOLOGIC: Negative. DERMATOLOGIC: Negative. Current vital signs are reviewed. Temperature is 98.3, heart rate 74, respiratory rate 20, blood pressure 132/59 mean 83 and 2 L saturation is 99%. She appears in no acute distress. She has some very mild conversational dyspnea. No audible wheezing or use of accessory muscles. HEENT: Examination is grossly unremarkable. Mucous membranes are moist. Nasal O2 noted. NECK: Supple, full range of motion. No adenopathy, thyromegaly or neck vein distention. CARDIOVASCULAR: Examination reveals regular rhythm and rate. Heart rate in the mid 70s. S1, S2 normal. No S3, S4, or murmur. LUNGS: Reveal diffuse inspiratory and expiratory wheezes and rhonchi. There is prolongation on forced maneuver. The patient coughs and wheezes on forced maneuver. Adventitious lung sounds are more prominent on forced exhalation. ABDOMEN: Soft, bowel sounds are heard. EXTREMITIES: Intact. No cyanosis, clubbing, or edema. SKIN: Without rash. NEUROLOGIC: Examination brief, but nonfocal. LABS: Reviewed. White count 17, hemoglobin 10.2, hematocrit 31.7, platelet count 267,000. PT, INR, PTT normal. Sodium 134, potassium 4.5, chloride is 103, CO2 is 19, anion gap is 12. BUN and creatinine were 43 and 2.38. Her N-terminal proBNP was [address]14. Troponin was less than 0.012. Albumin 3.5. Influenza studies were negative. Chest x-ray showed no acute cardiopulmonary disease. Microbiologic studies are currently pending or negative. Medications are reviewed. She is currently on Tylenol, Zyloprim, amlodipine, aspirin, Lipitor, Zithromax IV, Pulmicort, Rocephin, Celexa, Plavix, famotidine, iron, Perforomist, Mucinex, hydralazine, ibuprofen, insulin, updrafts with DuoNeb, Imdur, Lamictal, Claritin, melatonin, prednisone, Narcan, and Chantix. ASSESSMENT: 1. Chronic obstructive pulmonary disease exacerbation complicated by purulent tracheobronchitis, without dakota pneumonia. 2. History of congestive heart failure. 3. Valvular heart disease in the form of mitral regurgitation. 4. Ongoing tobacco use with nicotine addiction. 5. History of congestive heart failure. 6. History of cerebrovascular accident. 7. Diabetes mellitus. 8. History of hyperlipidemia. 9. Benign essential hypertension. 10.Peripheral vascular occlusive disease. 11.History of CML. PLAN: The patient's antibiotics could be de-escalated. The patient does not have a pneumonia. She remains on prednisone, Pulmicort, formoterol and DuoNeb. The Pulmicort will be increased to 1 mg. Will continue to follow. Hopefully discharge in next 24-48 hours. She is counseled about the importance of smoking cessation. Additional recommendations and suggestions are forthcoming. Prognosis is guarded. MMODL / IJN: [id number] / RUTHY
[2019-05-23] MEDS: VARENICLINE 0.5 MG TAB PO SCH ×2 (12:36→20:50)
[2019-05-23 13:38] VITALS: BMI 25.9
[2019-05-23 17:02] LABS: Glucose,Whole Blood 271 mg/dL (75-99)
--- NOTE | 2019-05-23 17:47 | P.PN ---
Subjective Progress Note Date: 05/23/19 (delayed charting seen at 0900) Principal diagnosis: shortness of breath Patient is a 48-year-old female with past medical history of COPD, systolic congestive heart failure with last ejection fraction of 40% on 12/06/2018, retention, diabetes mellitus type 2 on orals, and dyslipidemia who presented to the emergency department with complaints of cough and shortness of breath. In the ER she underwent an extensive evaluation. Her respiratory rate was found to be elevated at 26 and she was hypoxic at 86% on room air. Laboratory analysis showed an elevated white blood cell count of 15.3, hemoglobin 10.9, creatinine was at baseline of 2.36, lactic acid mildly elevated at 2.5, and influenza was negative. Chest x-ray showed no acute process. Her BNP was elevated at 11,900. She received steroids, bronchodilators, and antibiotics. She was admitted for further treatment of her acute exacerbation of COPD along with acute bronchitis. She was kept on abx, steroids, and bronchodilators. She had completed 3 days of levaquin as an outpatient without improvement. Pulmonary was consulted and increased her pulmicort dosing. Patient seen and examined at bedside. She is feeling much improved since yesterday. Her shortness of breath is improved, less wheezing, cough is more freezing. No chest pain or shortness of breath. Objective - Vital Signs Vital signs: Vital Signs Temp 98.3 F 05/23/19 04:59 Pulse 80 05/23/19 11:05 Resp 20 05/23/19 04:59 BP 132/59 05/23/19 04:59 Pulse Ox 100 05/23/19 06:57 Intake & Output 05/22/19 05/23/19 05/23/19 18:59 06:59 18:59 Intake Total 400 Balance 400 Weight 66.497 kg Intake: Oral 400 Other: # Voids 1 - Exam General: non toxic, no distress, Appears older than stated age Derm: warm, dry Head: atraumatic, normocephalic, symmetric Eyes: EOMI, no lid lag, anicteric sclera Mouth: no lip lesion, mucus membranes moist Cardiovascular: S1S2 reg, no murmur, positive posterior tibial pulse bilateral, Lungs: crackles bilateral bases with faint expiratory wheeze, no rhonchi, no rales , no accessory muscle use Abdominal: soft, nontender to palpation, no guarding, no appreciable organomegaly Ext: no gross muscle atrophy, no edema, no contractures Neuro: CN II-XI grossly intact, no focal neuro deficits Psych: Alert, oriented, appropriate affect - Labs CBC & Chem 7: 05/23/19 08:21 05/23/19 08:21 Labs: Abnormal Lab Results - Last 24 Hours (Table) 05/22/19 05/22/19 05/22/19 Range/Units 13:30 13:30 13:30 WBC 15.3 H (3.8-10.6) k/uL RBC 3.41 L (3.80-5.40) m/uL Hgb 10.9 L (11.4-16.0) gm/dL Hct 33.4 L (34.0-46.0) % Neutrophils # 13.6 H (1.3-7.7) k/uL Lymphocytes # 0.4 L (1.0-4.8) k/uL Sodium (137-145) mmol/L Carbon Dioxide 21 L (22-30) mmol/L BUN 34 H (7-17) mg/dL Creatinine 2.36 H (0.52-1.04) mg/dL Glucose 174 H (74-99) mg/dL POC Glucose (mg/dL) (75-99) mg/dL Hemoglobin A1c (4.0-6.0) % Plasma Lactic Acid Tres 2.5 H* (0.7-2.0) mmol/L Total Protein 6.0 L (6.3-8.2) g/dL 05/22/19 05/22/19 05/22/19 Range/Units 17:37 17:50 20:11 WBC (3.8-10.6) k/uL RBC (3.80-5.40) m/uL Hgb (11.4-16.0) gm/dL Hct (34.0-46.0) % Neutrophils # (1.3-7.7) k/uL Lymphocytes # (1.0-4.8) k/uL Sodium (137-145) mmol/L Carbon Dioxide (22-30) mmol/L BUN (7-17) mg/dL Creatinine (0.52-1.04) mg/dL Glucose (74-99) mg/dL POC Glucose (mg/dL) 320 H 442 H (75-99) mg/dL Hemoglobin A1c 10.1 H (4.0-6.0) % Plasma Lactic Acid Tres (0.7-2.0) mmol/L Total Protein (6.3-8.2) g/dL 05/22/19 05/23/19 05/23/19 Range/Units 20:13 07:03 08:21 WBC 17.0 H (3.8-10.6) k/uL RBC 3.17 L (3.80-5.40) m/uL Hgb 10.2 L (11.4-16.0) gm/dL Hct 31.7 L (34.0-46.0) % Neutrophils # (1.3-7.7) k/uL Lymphocytes # (1.0-4.8) k/uL Sodium (137-145) mmol/L Carbon Dioxide (22-30) mmol/L BUN (7-17) mg/dL Creatinine (0.52-1.04) mg/dL Glucose (74-99) mg/dL POC Glucose (mg/dL) 442 H 453 H (75-99) mg/dL Hemoglobin A1c (4.0-6.0) % Plasma Lactic Acid Tres (0.7-2.0) mmol/L Total Protein (6.3-8.2) g/dL 05/23/19 Range/Units 08:21 WBC (3.8-10.6) k/uL RBC (3.80-5.40) m/uL Hgb (11.4-16.0) gm/dL Hct (34.0-46.0) % Neutrophils # (1.3-7.7) k/uL Lymphocytes # (1.0-4.8) k/uL Sodium 134 L (137-145) mmol/L Carbon Dioxide 19 L (22-30) mmol/L BUN 43 H (7-17) mg/dL Creatinine 2.38 H (0.52-1.04) mg/dL Glucose 490 H (74-99) mg/dL POC Glucose (mg/dL) (75-99) mg/dL Hemoglobin A1c (4.0-6.0) % Plasma Lactic Acid Tres (0.7-2.0) mmol/L Total Protein (6.3-8.2) g/dL Assessment and Plan Assessment: Acute exacerbation of COPD with acute bronchitis with sepsis -Steroids, bronchodilators -Zithromax, if WBC decreases in AM then stop rocephin -Pulmonary recs appreciated -Pulmonary hygiene -Sputum culture Systolic congestive heart failure with last known ejection fraction of 45% appears clinically compensated -Resume Lasix -Strict I's and O's, daily weights -Continue with metoprolol, Imdur, Lipitor -Not chronically an MI inhibitor and wont initiate this point in time secondary chronic kidney disease Chronic kidney disease stage IV -Creatinine appears at baseline of 2.36 -Avoid additional nephrotoxic agents -Follow creatinine carefully DM 2 with hyperglycemia due to steroids - SSI, follow BS, A1C 10.1 - Hold glipizide - increase levemir On going tobacco abuse - cessation - chantix resumed Lactic acidosis -Suspect secondary to increased work of breathing -Repeat in 6 hours Anemia, chronic -Follow CBC The patient is admitted with an anticipated greater than 2 midnight stay for evaluation of COPD and acute bronchitis with sepsis. Surrogate decision-maker: Son CODE STATUS:Full DVT prophylaxis: SCDs Discussed with: Patient, nursing Anticipated discharge date: in AM Anticipated discharge place: home A total of 35 minutes was spent on the care of this complex patient more than 50% of the time was spent in counseling and care coordination.
[2019-05-23] MEDS: FUROSEMIDE 40 MG TAB PO SCH (18:16)
[2019-05-23 20:33] LABS: Glucose,Whole Blood 302 mg/dL (75-99)
[2019-05-23] MEDS ORDERED: INSULIN DETEMIR (LEVEMIR) 100 UNIT/ML SYR SQ SCH ×2 (21:00)
[2019-05-23 21:39] VITALS: RESP 18
[2019-05-24 06:25] VITALS: BP 167/69; TEMP 98
[2019-05-24 07:02] LABS: Glucose,Whole Blood 302 mg/dL (75-99)
[2019-05-24] MEDS: INSULIN ASPART (NovoLOG) 100 UNIT/ML VIAL SQ SCH ×4 (08:28→12:08)
[2019-05-24] MEDS: predniSONE 20 MG TAB PO SCH (08:29)
[2019-05-24] MEDS: METOPROLOL SUCCINATE (ER) 100 MG TAB.ER.24H PO SCH (08:29)
[2019-05-24] MEDS: ASPIRIN 81 MG PO SCH (08:29)
[2019-05-24] MEDS: FAMOTIDINE 20 MG TAB PO SCH (08:29)
[2019-05-24] MEDS: ISOSORBIDE MONONITRATE ER 60 MG TAB.ER.24H PO SCH (08:29)
[2019-05-24] MEDS: LORATADINE 10 MG TAB PO SCH (08:29)
[2019-05-24] MEDS: CLOPIDOGREL 75 MG TAB PO SCH (08:29)
[2019-05-24] MEDS: lamoTRIgine 25 MG TAB PO SCH (08:29)
[2019-05-24] MEDS: VARENICLINE 0.5 MG TAB PO SCH (08:29)
[2019-05-24] MEDS: hydrALAZINE HCL 25 MG TAB PO SCH (08:30)
[2019-05-24] MEDS: amLODIPine 10 MG TAB PO SCH (08:30)
[2019-05-24] MEDS: FERROUS SULFATE 325 MG TAB PO SCH (08:30)
[2019-05-24] MEDS: CITALOPRAM HYDROBROMIDE 20 MG TAB PO SCH (08:30)
[2019-05-24] MEDS: ATORVASTATIN 80 MG TAB PO SCH (08:30)
[2019-05-24] MEDS: guaiFENesin 600 MG TABLET.ER PO SCH (08:30)
[2019-05-24] MEDS: ALLOPURINOL 100 MG TAB PO SCH (08:30)
[2019-05-24] MEDS: FUROSEMIDE 40 MG TAB PO SCH (08:30)
[2019-05-24] MEDS: FORMOTEROL FUMARATE 20 MCG/2 ML NEBU INHALATION SCH (08:38)
[2019-05-24] MEDS: IPRATROPIUM-ALBUTEROL 3 ML NEB INHALATION SCH (08:38)
[2019-05-24] MEDS: BUDESONIDE 0.5 MG/2 ML NEBU INHALATION SCH (08:39)
[2019-05-24 09:03] VITALS: PULSE 77
--- NOTE | 2019-05-24 11:00 | P.DS ---
Providers Date of admission: 05/22/19 15:19 Expected date of discharge: 05/24/19 Attending physician: Rohit Costa MD Consults: 05/22/19 15:19 Consult Physician Routine Consulting Provider: Dustin Gibbons Consult Reason/Comments: COPD Do you want consulting provider notified?: Yes Primary care physician: Kartik Guzman Hospital Course: Discharge Diagnosis: Acute exacerbation of COPD Acute bronchitis Sepsis Systolic CHF with EF 45 % without exacerbation CKD IV DM2 with steroid induced hyperglycemia TObacco abuse Lactic acidosis Anemia Hospital Course: Patient is a 48-year-old female with past medical history of COPD, systolic congestive heart failure with last ejection fraction of 40% on 12/06/2018, retention, diabetes mellitus type 2 on orals, and dyslipidemia who presented to the emergency department with complaints of cough and shortness of breath. In the ER she underwent an extensive evaluation. Her respiratory rate was found to be elevated at 26 and she was hypoxic at 86% on room air. Laboratory analysis showed an elevated white blood cell count of 15.3, hemoglobin 10.9, creatinine was at baseline of 2.36, lactic acid mildly elevated at 2.5, and influenza was negative. Chest x-ray showed no acute process. Her BNP was elevated at 11,900. She received steroids, bronchodilators, and antibiotics. She was admitted for further treatment of her acute exacerbation of COPD along with acute bronchitis. She was kept on abx, steroids, and bronchodilators. She had completed 3 days of levaquin as an outpatient without improvement. Pulmonary was consulted and increased her pulmicort dosing. He breathing and cough greatly improved. She developed worsening hyperglycemia due to steroids which had improved. Her WBC increased the day after admission due to steroids. She remained afebrile and breathing continued to improved. She was restarted on her lasix as it had been held by her nephro [employer]. She continued to improved and was determined stable for discharge. She was cleared by pulmonary. She will complete a steroid taper, antibiotics, and mucinex course. She will follow-up with Dr. Gibbons in 2 weeks and Cherelle Kelsey in 3-5 days. She should have a repeat CBC in 3-7 days to ensure that her WBC is downtrending. Patient seen and examined at bedside. Breathing much better, increased stress at home, no chest pain, productive cough. Vital signs reviewed and stable. General: non toxic, no distress, appears older than stated age Derm: warm, dry Head: atraumatic, normocephalic, symmetric Eyes: EOMI, no lid lag, anicteric sclera Mouth: no lip lesion, mucus membranes moist Cardiovascular: S1S2 reg, no murmur, positive posterior tibial pulse bilateral, Lungs: faint wheeze bilateral, no rhonchi, no rales , no accessory muscle use Abdominal: soft, nontender to palpation, no guarding, no appreciable organomegaly Ext: no gross muscle atrophy, no edema, no contractures Neuro: CN II-XI grossly intact, no focal neuro deficits Psych: Alert, oriented, appropriate affect A total of 35 minutes of time were spent preparing this complex discharge summ gerald . Patient Condition at Discharge: Stable Plan - Discharge Summary Discharge Rx Participant: No New Discharge Prescriptions: New Varenicline [Chantix Starter Pack] 0.5 mg PO BID tab guaiFENesin [Mucinex] 600 mg PO Q12HR #30 tablet.er predniSONE 0 mg PO DIRECTED #35 tab Cefpodoxime Proxetil [Vantin] 200 mg PO Q12HR #6 tab Azithromycin [Zithromax] 500 mg PO Q24H #3 tab Ipratropium Nebulized [Atrovent Nebulized 0.2 MG/ML] 0.5 mg INHALATION Q6HR PRN #100 neb PRN Reason: Shortness Of Breath Or Wheezing Continue Clopidogrel Bisulfate [Plavix] 75 mg PO DAILY Loratadine [Claritin] 10 mg PO DAILY lamoTRIgine [LaMICtal] 25 mg PO BID Ferrous Sulfate [Iron (65 MG Elemental)] 325 mg PO DAILY Ergocalciferol (Vitamin D2) [Drisdol] 50,000 unit PO TEJEDA Citalopram Hydrobromide [CeleXA] 20 mg PO DAILY Atorvastatin [Lipitor] 80 mg PO DAILY Albuterol Inhaler [Ventolin Hfa Inhaler] 2 puff INHALATION RT-Q6H PRN PRN Reason: Shortness Of Breath amLODIPine [Norvasc] 10 mg PO DAILY Famotidine [Pepcid] 40 mg PO DAILY Isosorbide Mononitrate ER [Imdur] 60 mg PO DAILY #30 tab.er.24h Albuterol Nebulized [Ventolin Nebulized] 2.5 mg INHALATION RT-TID PRN PRN Reason: Shortness Of Breath hydrALAZINE HCL 25 mg PO BID Insulin Glargine,Hum.rec.anlog [Basaglar Kwikpen U-100] 22 units SQ HS Allopurinol [Zyloprim] 100 mg PO DAILY Metoprolol Succinate [Toprol XL] 100 mg PO DAILY glipiZIDE [Glucotrol] 10 mg PO AC-BID Umeclidinium Hague [Incruse Ellipta] 1 puff INHALATION RT-HS Aspirin 81 mg PO DAILY Furosemide [Lasix] 40 mg PO BID Insulin Lispro [Admelog] See Protocol SQ AC-TID Discontinued Levofloxacin [Levaquin] 500 mg PO DAILY Discharge Medication List Clopidogrel Bisulfate [Plavix] 75 mg PO DAILY 01/21/15 [History] Ergocalciferol (Vitamin D2) [Drisdol] 50,000 unit PO TEJEDA 01/21/15 [History] Ferrous Sulfate [Iron (65 MG Elemental)] 325 mg PO DAILY 01/21/15 [History] Loratadine [Claritin] 10 mg PO DAILY 01/21/15 [History] lamoTRIgine [LaMICtal] 25 mg PO BID 01/21/15 [History] Albuterol Inhaler [Ventolin Hfa Inhaler] 2 puff INHALATION RT-Q6H PRN 06/30/17 [History] Atorvastatin [Lipitor] 80 mg PO DAILY 06/30/17 [History] Citalopram Hydrobromide [CeleXA] 20 mg PO DAILY 06/30/17 [History] Famotidine [Pepcid] 40 mg PO DAILY 06/18/18 [History] amLODIPine [Norvasc] 10 mg PO DAILY 06/18/18 [History] Isosorbide Mononitrate ER [Imdur] 60 mg PO DAILY #30 tab.er.24h 06/22/18 [Rx] Albuterol Nebulized [Ventolin Nebulized] 2.5 mg INHALATION RT-TID PRN 07/02/18 [History] hydrALAZINE HCL 25 mg PO BID 07/02/18 [History] Insulin Glargine,Hum.rec.anlog [Basaglar Kwikpen U-100] 22 units SQ HS 07/03/18 [History] Allopurinol [Zyloprim] 100 mg PO DAILY 08/30/18 [History] Metoprolol Succinate [Toprol XL] 100 mg PO DAILY 10/08/18 [History] Umeclidinium Hague [Incruse Ellipta] 1 puff INHALATION RT-HS 10/08/18 [History] glipiZIDE [Glucotrol] 10 mg PO AC-BID 10/08/18 [History] Aspirin 81 mg PO DAILY 12/05/18 [History] Furosemide [Lasix] 40 mg PO BID 05/22/19 [History] Insulin Lispro [Admelog] See Protocol SQ AC-TID 05/22/19 [History] Azithromycin [Zithromax] 500 mg PO Q24H #3 tab 05/24/19 [Rx] Cefpodoxime Proxetil [Vantin] 200 mg PO Q12HR #6 tab 05/24/19 [Rx] Ipratropium Nebulized [Atrovent Nebulized 0.2 MG/ML] 0.5 mg INHALATION Q6HR PRN #100 neb 05/24/19 [Rx] Varenicline [Chantix Starter Pack] 0.5 mg PO BID tab 05/24/19 [Rx] guaiFENesin [Mucinex] 600 mg PO Q12HR #30 tablet.er 05/24/19 [Rx] predniSONE 0 mg PO DIRECTED #35 tab 05/24/19 [Rx] Follow up Appointment(s)/Referral(s): Dustin Gibbons MD [STAFF PHYSICIAN] - 1 Week Cherelle Valadez NPC [Nurse Practitioner] - 1-2 Days Ambulatory/Diagnostic Orders: Complete Blood Count w/diff [LAB.AMB] Time Frame: 3 Days, Location: None Selected Activity/Diet/Wound Care/Special Instructions: Activity: as tolerated Diet: heart healthy, carb consistent Special Instructions: Check blood sugar 3 times daily and make a log Take both albuterol and ipatropium 4 times daily for the next 3 days and then as needed repeat CBC in 3-7 days Discharge Disposition: HOME SELF-CARE
[2019-05-24 11:31] LABS: Glucose,Whole Blood 455 mg/dL (75-99)
[2019-05-24] MEDS ORDERED: AZITHROMYCIN 500 MG TAB PO SCH (12:00)
--- NOTE | 2019-05-24 13:13 | P.PN ---
Subjective Progress Note Date: 05/24/19 Principal diagnosis: Acute exacerbation of chronic obstructive pulmonary disease complicated On 05/24/2019 patient seen in follow-up on general medical floor, she is breathing easier, less Percocet spastic and dyspnea, she is off the supplemental oxygen, she is afebrile, she has been treated with antibiotics IV steroids and nebulized bronchodilators, improved, she was strongly urged to quit smoking, and patient states she will continue to work. No hemoptysis, no complaints of chest pain, she is ambulating in the room, and tolerating activity well. She is anticipated for discharge home today. Objective - Vital Signs Vital signs: Vital Signs Temp 98.0 F 05/24/19 06:10 Pulse 77 05/24/19 09:02 Resp 18 05/24/19 06:10 BP 167/69 05/24/19 06:10 Pulse Ox 97 05/24/19 06:10 Intake & Output 05/23/19 05/24/19 05/24/19 18:59 06:59 18:59 Weight 66.497 kg Other: # Voids 2 2 - Exam GENERAL EXAM: Alert, pleasant, 48-year-old white female, on room air with a pulse ox 94% comfortable in no apparent distress. HEAD: Normocephalic/atraumatic. EYES: Normal reaction of pupils, equal size. Conjunctiva pink, sclera white. NOSE: Clear with pink turbinates. THROAT: No erythema or exudates. NECK: No masses, no JVD, no thyroid enlargement, no adenopathy. CHEST: No chest wall deformity. Symmetrical expansion. LUNGS: Equal air entry with image breath sounds bilaterally, lung sounds are coarse inspiratory crackles., but no significant congestion CVS: Regular rate and rhythm, normal S1 and S2, no gallops, no murmurs, no rubs ABDOMEN: Soft, nontender. No hepatosplenomegaly, normal bowel sounds, no guarding or rigidity. EXTREMITIES: No clubbing, no edema, no cyanosis, 2+ pulses and upper and lower extremities. MUSCULOSKELETAL: Muscle strength and tone normal. SPINE: No scoliosis or deformity SKIN: No rashes CENTRAL NERVOUS SYSTEM: Alert and oriented -3. No focal deficits, tone is normal in all 4 extremities. PSYCHIATRIC: Alert and oriented -3. Appropriate affect. Intact judgment and insight. - Labs CBC & Chem 7: 05/23/19 08:21 05/23/19 08:21 Labs: Abnormal Lab Results - Last 24 Hours (Table) 05/23/19 05/23/19 05/24/19 Range/Units 16:59 20:31 07:00 POC Glucose (mg/dL) 271 H 302 H 302 H (75-99) mg/dL 05/24/19 Range/Units 11:30 POC Glucose (mg/dL) 455 H (75-99) mg/dL Microbiology - Last 24 Hours (Table) 05/23/19 07:00 Gram Stain - Preliminary Sputum 05/22/19 13:30 Blood Culture - Preliminary Blood No Growth after 24 hours Assessment and Plan Plan: Assessment: #1. Acute exacerbation of chronic obstructive pulmonary disease complicated by purulent tracheobronchitis without dakota pneumonia #2. Chronic congestive heart failure with diastolic dysfunction #3. Chronic kidney disease stage IV #4. History of severe peripheral vascular disease with prior fem-pop bypass #5. Hyperlipidemia #6. Diabetes #7. History of nicotine dependence #8. History of prior TIA #9. Chronic anemia #10. Valvular heart disease, mitral regurgitation #11. CML Plan: Patient is improving, breathing easier, less congested with bronchospastic, she is tolerating ambulation, she is off abdominal oxygen, maintaining stable oxygen ation, afebrile, from pulmonary perspective she stable for discharge home today nicotine abstinence was strongly encouraged patient has a follow-up appointment with Dr. Gibbons in the office I performed a history & physical examination of the patient and discussed their management with my nurse practitioner, Caty Renner. I reviewed the nurse practitioner's note and agree with the documented findings and plan of care. Lung sounds are positive for a few scattered wheezes. The findings and the impression was discussed with the patient. I attest to the documentation by the nurse practitioner.
== END 2019-05-24 12:24 | disposition home or self-care (01) | DRG 872 ==
LOC: EC 12:15 → 6NMEDSUR 15:19
PROVIDERS: ADMIT Internal Medicine; ATTEND Internal Medicine
DX: A41.9 Sepsis, unspecified organism (principal); E87.2 Acidosis; I50.42 Chronic combined systolic (congestive) and diastolic (congestive) heart failure; I13.0 Hypertensive heart and chronic kidney disease with heart failure and stage 1 through stage 4 chronic kidney disease, or unspecified chronic kidney disease; J44.0 Chronic obstructive pulmonary disease with (acute) lower respiratory infection; J44.1 Chronic obstructive pulmonary disease with (acute) exacerbation; N18.4 Chronic kidney disease, stage 4 (severe); C92.10 Chronic myeloid leukemia, BCR/ABL-positive, not having achieved remission; E11.22 Type 2 diabetes mellitus with diabetic chronic kidney disease; E11.51 Type 2 diabetes mellitus with diabetic peripheral angiopathy without gangrene; E11.65 Type 2 diabetes mellitus with hyperglycemia; E78.5 Hyperlipidemia, unspecified; E86.0 Dehydration; F12.90 Cannabis use, unspecified, uncomplicated; F17.210 Nicotine dependence, cigarettes, uncomplicated; F32.9 Major depressive disorder, single episode, unspecified; F41.9 Anxiety disorder, unspecified; I34.0 Nonrheumatic mitral (valve) insufficiency; J20.9 Acute bronchitis, unspecified; D64.9 Anemia, unspecified; R09.02 Hypoxemia; T38.0X5A Adverse effect of glucocorticoids and synthetic analogues, initial encounter; Z79.02 Long term (current) use of antithrombotics/antiplatelets; Z79.82 Long term (current) use of aspirin; Z79.84 Long term (current) use of oral hypoglycemic drugs; Z79.899 Other long term (current) drug therapy; Z80.3 Family history of malignant neoplasm of breast; Z82.3 Family history of stroke; Z82.49 Family history of ischemic heart disease and other diseases of the circulatory system; Z83.3 Family history of diabetes mellitus; Z86.73 Personal history of transient ischemic attack (TIA), and cerebral infarction without residual deficits; Z87.01 Personal history of pneumonia (recurrent); Z93.3 Colostomy status
CPT/HCPCS: 36415; 71045; 71046; 80048; 80053; 83036; 83605; 83735; 83880; 84484; 85025; 85027; 85610; 85730; 87040; 87070; 87205; 87502; 93005; 94640; 94760; 96365; 96375; 99291

== ENCOUNTER 2019-06-08 15:57 | Inpatient (IN) | payer OTHER ==
[2019-06-08] MEDS ORDERED: MORPHINE SULFATE 4 MG/ML SYRINGE IV STA (16:45)
--- NOTE | 2019-06-08 16:45 | ED ---
Skin/Abscess/FB HPI - General Chief complaint: Skin/Abscess/Foreign Body Stated complaint: ABd Pain Time Seen by Provider: 06/08/19 16:15 Source: patient, RN notes reviewed, old records reviewed Mode of arrival: ambulatory Limitations: no limitations - History of Present Illness Initial comments: This is a 48-year-old female to the ER for evaluation patient presents today for evaluation regards to abdominal pain abdominal wall redness and tenderness. Positive nausea positive vomiting recent diagnosis of COPD inpatient hospitalization for COPD currently on outpatient steroids and antibiotics. No current fevers. No recent travel history or sick contacts. Patient does have inpatient hospitalization she has had cellulase abdominal wall before with hospital admission and treatment for that. Patient denies any vomiting no blood in her stool, no diarrhea MD complaint: rash (LeftLowerBadomen) -: days(s) Tetanus Up to Date: yes Location: generalized (bdominal, pannus) Quality: aching, sharp Consistency: constant Improves with: none Worsens with: none Context: new medication (steriods,keflex), recent illness (URI,COPD) Associated symptoms: fever, itching, cough, shortness of breath Treatments Prior to Arrival: none - Related Data Home Medications Medication Instructions Recorded Confirmed Clopidogrel Bisulfate [Plavix] 75 mg PO DAILY@0900 01/21/15 06/08/19 Ergocalciferol (Vitamin D2) 50,000 unit PO TEJEDA 01/21/15 06/08/19 [Drisdol] Ferrous Sulfate [Iron (65 MG 325 mg PO BID@0900,1200 01/21/15 06/08/19 Elemental)] Loratadine [Claritin] 10 mg PO DAILY@0900 01/21/15 06/08/19 lamoTRIgine [LaMICtal] 25 mg PO BID@0900,1200 01/21/15 06/08/19 Albuterol Inhaler [Ventolin Hfa 2 puff INHALATION RT-Q6H PRN 06/30/17 06/08/19 Inhaler] Atorvastatin [Lipitor] 80 mg PO HS 06/30/17 06/08/19 Citalopram Hydrobromide [CeleXA] 20 mg PO DAILY@0900 06/30/17 06/08/19 Famotidine [Pepcid] 40 mg PO DAILY@0900 06/18/18 06/08/19 amLODIPine [Norvasc] 10 mg PO DAILY@1200 06/18/18 06/08/19 hydrALAZINE HCL 25 mg PO BID@0900,199907/02/18 06/08/19 Insulin Glargine,Hum.rec.anlog 22 units SQ HS 07/03/18 06/08/19 [Basaglar Kwikpen U-100] Allopurinol [Zyloprim] 100 mg PO DAILY@1200 08/30/18 06/08/19 Metoprolol Succinate [Toprol XL] 100 mg PO HS 10/08/18 06/08/19 Umeclidinium [place] [Incruse 1 puff INHALATION RT-HS 10/08/18 06/08/19 Ellipta] Aspirin 81 mg PO DAILY@1200 12/05/18 06/08/19 Furosemide [Lasix] 40 mg PO BID@0900,1200 05/22/19 06/08/19 Insulin Lispro [Admelog] See Protocol SQ AC-TID 05/22/19 06/08/19 Ipratropium Nebulized [Atrovent 0.5 mg INHALATION RT-Q6H PRN 06/08/19 06/08/19 Nebulized 0.2 MG/ML] Isosorbide Mononitrate ER [Imdur] 60 mg PO DAILY@119906/08/19 06/08/19 Varenicline [Chantix Continuing 1 mg PO BID@0900,1200 06/08/19 06/08/19 Pack] Allergies Allergy/AdvReac Type Severity Reaction Status Date / Time bee venom protein (honey bee) Allergy Anaphylaxis Verified 06/08/19 19:13 Penicillins Allergy Rash/Hives Verified 06/08/19 19:13 Review of Systems ROS Statement: Those systems with pertinent positive or pertinent negative responses have been documented in the HPI. ROS Other: All systems not noted in ROS Statement are negative. 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 PAST GAME AUTHOR HISTORY: precancerou lesion that is going to be lazered off at [facility] in June 01, 2019 History of Any Multi-Drug Resistant Organisms: None Reported Past Surgical History: Appendectomy, Bowel Resection, Orthopedic Surgery, Tubal Ligation Additional Past Surgical History / Comment(s): Hx of colostomy and reversal, rotator cuff repair on Left, hx of bifem bypass. Colonoscopy 2012, cardiac catheterization Past Anesthesia/Blood Transfusion Reactions: No Reported Reaction Past Psychological History: Anxiety, Depression Smoking Status: Current every day smoker Past Alcohol Use History: None Reported Past Drug Use History: Marijuana - Past Family History Mother Family Medical History: Congestive Heart Failure (CHF), Diabetes Mellitus Brother(s) Additional Family Medical History / Comment(s): CABG Sister(s) Family Medical History: CVA/TIA Additional Family Medical History / Comment(s): Maternal aunt had breast cancer. General Exam Limitations: no limitations General appearance: alert, in no apparent distress Head exam: Present: atraumatic, normocephalic, normal inspection Eye exam: Present: normal appearance, PERRL, EOMI. Absent: scleral icterus, conjunctival injection, periorbital swelling ENT exam: Present: normal exam, mucous membranes moist Neck exam: Present: normal inspection. Absent: tenderness, meningismus, lymphadenopathy Respiratory exam: Present: normal lung sounds bilaterally. Absent: respiratory distress, wheezes, rales, rhonchi, stridor Cardiovascular Exam: Present: regular rate, normal rhythm, normal heart sounds. Absent: systolic murmur, diastolic murmur, rubs, gallop, clicks GI/Abdominal exam: Present: soft, normal bowel sounds, other (Left lower abdominal skin rash, tenderness to palpation during anterior abdomen from umbilicus to left flank, pannus erythema no noted abscess). Absent: distended, tenderness, guarding, rebound, rigid Extremities exam: Present: normal inspection, full ROM, normal capillary refill. Absent: tenderness, pedal edema, joint swelling, calf tenderness Back exam: Present: normal inspection Neurological exam: Present: alert, oriented X3, CN II-XII intact Psychiatric exam: Present: normal affect, normal mood Skin exam: Present: warm, dry, intact, normal color. Absent: rash Course Vital Signs 06/08/19 16:11 Temperature 98.2 F Pulse Rate 70 Respiratory 18 Rate Blood Pressure 181/80 O2 Sat by Pulse 99 Oximetry - Reevaluation(s) Reevaluation #1: 06/08/19 19:46 medical record is reviewed Reevaluation #2: 06/08/19 19:46 pateint has adequate pain control - Consultations Consultation #1: spoke w Ariadna who is okay for admission Medical Decision Making - Medical Decision Making 48 female to the ER for evaluation abdominal cellulitis she is not abdominal wall cellulitis despite antibiotics. Patient be admitted for IV antibiotics continue steroids as well. - Lab Data Result diagrams: 06/08/19 17:14 06/08/19 17:14 Lab Results 06/08/19 06/08/19 06/08/19 Range/Units 17:05 17:14 17:14 WBC 15.0 H (3.8-10.6) k/uL RBC 3.11 L (3.80-5.40) m/uL Hgb 9.9 L (11.4-16.0) gm/dL Hct 30.1 L (34.0-46.0) % MCV 96.6 (80.0-100.0) fL MCH 31.8 (25.0-35.0) pg MCHC 32.9 (31.0-37.0) g/dL RDW 15.5 (11.5-15.5) % Plt Count 217 (150-450) k/uL Neutrophils % 88 % Lymphocytes % 5 % Monocytes % 3 % Eosinophils % 3 % Basophils % 0 % Neutrophils # 13.3 H (1.3-7.7) k/uL Lymphocytes # 0.7 L (1.0-4.8) k/uL Monocytes # 0.5 (0-1.0) k/uL Eosinophils # 0.4 (0-0.7) k/uL Basophils # 0.1 (0-0.2) k/uL Sodium 136 L (137-145) mmol/L Potassium 4.3 (3.5-5.1) mmol/L Chloride 106 (98-107) mmol/L Carbon Dioxide 21 L (22-30) mmol/L Anion Gap 9 mmol/L BUN 50 H (7-17) mg/dL Creatinine 2.00 H (0.52-1.04) mg/dL Est GFR (CKD-EPI)AfAm 33 (>60 ml/min/1.73 sqM) Est GFR (CKD-EPI)NonAf 29 (>60 ml/min/1.73 sqM) Glucose 119 H (74-99) mg/dL Plasma Lactic Acid Tres (0.7-2.0) mmol/L Calcium 8.4 (8.4-10.2) mg/dL Phosphorus 3.7 (2.5-4.5) mg/dL Magnesium 2.4 H (1.6-2.3) mg/dL Total Bilirubin 0.9 (0.2-1.3) mg/dL AST 40 H (14-36) U/L ALT 64 H (4-34) U/L Alkaline Phosphatase 118 (38-126) U/L Total Protein 5.7 L (6.3-8.2) g/dL Albumin 3.3 L (3.5-5.0) g/dL Amylase <30 L (30-110) U/L Lipase 145 (23-300) U/L Urine Color Yellow Urine Appearance Clear (Clear) Urine pH 6.0 (5.0-8.0) Ur Specific [place] 1.012 (1.001-1.035) Urine Protein 3+ H (Negative) Urine Glucose (UA) Negative (Negative) Urine Ketones Negative (Negative) Urine Blood Small H (Negative) Urine Nitrite Negative (Negative) Urine Bilirubin Negative (Negative) Urine Urobilinogen <2.0 (<2.0) mg/dL Ur Leukocyte Esterase Negative (Negative) Urine RBC 6 H (0-5) /hpf Urine WBC 1 (0-5) /hpf Ur Squamous Epith Cells 1 (0-4) /hpf Urine Bacteria Rare H (None) /hpf Hyaline Casts 4 H (0-2) /lpf Urine Mucus Rare H (None) /hpf 06/08/19 Range/Units 17:14 WBC (3.8-10.6) k/uL RBC (3.80-5.40) m/uL Hgb (11.4-16.0) gm/dL Hct (34.0-46.0) % MCV (80.0-100.0) fL MCH (25.0-35.0) pg MCHC (31.0-37.0) g/dL RDW (11.5-15.5) % Plt Count (150-450) k/uL Neutrophils % % Lymphocytes % % Monocytes % % Eosinophils % % Basophils % % Neutrophils # (1.3-7.7) k/uL Lymphocytes # (1.0-4.8) k/uL Monocytes # (0-1.0) k/uL Eosinophils # (0-0.7) k/uL Basophils # (0-0.2) k/uL Sodium (137-145) mmol/L Potassium (3.5-5.1) mmol/L Chloride (98-107) mmol/L Carbon Dioxide (22-30) mmol/L Anion Gap mmol/L BUN (7-17) mg/dL Creatinine (0.52-1.04) mg/dL Est GFR (CKD-EPI)AfAm (>60 ml/min/1.73 sqM) Est GFR (CKD-EPI)NonAf (>60 ml/min/1.73 sqM) Glucose (74-99) mg/dL Plasma Lactic Acid Tres 1.2 (0.7-2.0) mmol/L Calcium (8.4-10.2) mg/dL Phosphorus (2.5-4.5) mg/dL Magnesium (1.6-2.3) mg/dL Total Bilirubin (0.2-1.3) mg/dL AST (14-36) U/L ALT (4-34) U/L Alkaline Phosphatase (38-126) U/L Total Protein (6.3-8.2) g/dL Albumin (3.5-5.0) g/dL Amylase (30-110) U/L Lipase (23-300) U/L Urine Color Urine Appearance (Clear) Urine pH (5.0-8.0) Ur Specific [place] (1.001-1.035) Urine Protein (Negative) Urine Glucose (UA) (Negative) Urine Ketones (Negative) Urine Blood (Negative) Urine Nitrite (Negative) Urine Bilirubin (Negative) Urine Urobilinogen (<2.0) mg/dL Ur Leukocyte Esterase (Negative) Urine RBC (0-5) /hpf Urine WBC (0-5) /hpf Ur Squamous Epith Cells (0-4) /hpf Urine Bacteria (None) /hpf Hyaline Casts (0-2) /lpf Urine Mucus (None) /hpf - Radiology Data Radiology results: report reviewed (CT abdomen and pelvis negative for acute disease not quality scan with no contrast), image reviewed Disposition Clinical Impression: Chronic renal failure, Acute exacerbation of chronic obstructive airways disease, Abdominal wall cellulitis, Failure of outpatient treatment Disposition: ADMITTED IP TO THIS HOSP Condition: Fair Is patient prescribed a controlled substance at d/c from ED?: No Referrals: Eran Bueno MD [Primary Care Provider] - 1-2 days
[2019-06-08 17:29] LABS: Appearance,Urine Clear (Clear); Bacteria,Urine Rare /hpf; Bilirubin,Urine Negative (Negative); Blood,Urine Small (Negative); Color,Urine Yellow; Glucose,Urine (UA) Negative (Negative); Hyaline Casts,Urine 4 /lpf (0-2); Ketones,Urine Negative (Negative); Leukocyte Esterase,Urine Negative (Negative); Mucus,Urine Rare /hpf; Nitrite,Urine Negative (Negative); Protein,Urine 3+ (Negative); RBC,Urine 6 /hpf (0-5); Specific Gravity,Urine 1.012 (1.001-1.035); Squamous Epithelial Cell,Urine 1 /hpf (0-4); Urobilinogen,Urine <2.0 mg/dL (<2.0); WBC,Urine 1 /hpf (0-5)
[2019-06-08 17:30] LABS: Basophils # (A) 0.1 k/uL (0-0.2); Basophils % (A) 0 %; Eosinophils # (A) 0.4 k/uL (0-0.7); Eosinophils % (A) 3 %; HCT 30.1 % (34.0-46.0); HGB 9.9 gm/dL (11.4-16.0); Lymphocytes # (A) 0.7 k/uL (1.0-4.8); Lymphocytes % (A) 5 %; MCH 31.8 pg (25.0-35.0); MCHC 32.9 g/dL (31.0-37.0); MCV 96.6 fL (80.0-100.0); Mean Platelet Volume 9.8; Monocytes # (A) 0.5 k/uL (0-1.0); Monocytes % (A) 3 %; Neutrophils # (A) 13.3 k/uL (1.3-7.7); Neutrophils % (A) 88 %; Platelet Count 217 k/uL (150-450); RBC 3.11 m/uL (3.80-5.40); RDW 15.5 % (11.5-15.5)
[2019-06-08 17:52] LABS: ALT 64 U/L (4-34); AST 40 U/L (14-36); African American GFR (CKD) 33 (>60 ml/min/1.73 sqM); Albumin 3.3 g/dL (3.5-5.0); Alkaline Phosphatase 118 U/L (38-126); Anion Gap 9 mmol/L; Blood Urea Nitrogen 50 mg/dL (7-17); Calcium 8.4 mg/dL (8.4-10.2); Carbon Dioxide 21 mmol/L (22-30); Chloride 106 mmol/L (98-107); Glucose 119 mg/dL (74-99); Magnesium 2.4 mg/dL (1.6-2.3); Non-African American GFR(CKD) 29 (>60 ml/min/1.73 sqM); Phosphorus 3.7 mg/dL (2.5-4.5); Potassium 4.3 mmol/L (3.5-5.1); Sodium 136 mmol/L (137-145); Total Bilirubin 0.9 mg/dL (0.2-1.3); Total Protein 5.7 g/dL (6.3-8.2)
[2019-06-08 17:54] LABS: Amylase <30 U/L (30-110)
--- NOTE | 2019-06-08 18:40 | XR ---
EXAMINATION: XR chest 2V DATE AND TIME: 06/08/2019 6:17 PM CLINICAL INDICATION: PHH; abdominal pain TECHNIQUE: PA and lateral COMPARISON: 05/23/2019 FINDINGS: There is mild/moderate silhouetting of the pulmonary vasculature is symmetrically throughou t the lungs by a fine reticular pattern of increased attenuation reaching the periphery as septal gerald es, greater on the right. The pleural spaces are positive for blunting of the posterior costophrenic angles bilaterally, consis tent with small bilateral pleural effusions posteriorly. The cardiac silhouette is borderline enlarged. The remainder of the mediastinal silhouette is unremarkable. The skeletal structures and soft tissues are negative for acute findings. IMPRESSION: Mild/moderate interstitial phase pulmonary edema.
--- NOTE | 2019-06-08 19:31 | CT ---
EXAMINATION TYPE: CT abdomen pelvis wo con DATE OF EXAM: 06/08/2019 COMPARISON: None HISTORY: Left sided abdominal pain and redness x2 days. CT DLP: 595.1 mGycm Automated exposure control for dose reduction was used. TECHNIQUE: Helical acquisition of images was performed from the lung bases through the pelvis. FINDINGS: Within the limitations of noncontrast CT, the following findings are made: LUNG BASES: There are bilateral pleural effusions, mild-moderate on the right and mild on the left. T here are associated bibasilar passive atelectasis changes, greater on the right, and concurrent bronc hopneumonia can only be excluded on clinical grounds. LIVER/GB: No significant abnormality is appreciated. PANCREAS: No significant abnormality is seen. SPLEEN: No significant abnormality is seen. ADRENALS: No significant abnormality is seen. KIDNEYS AND URETERS AND BLADDER: There is no left-sided or right-sided hydronephrosis or hydroureter. PERITONEAL CAVITY: Scant volume of simple appearing dependent fluid seen in the cul-de-sac. No other peritoneal fluid. There is no pneumoperitoneum. RETROPERITONEAL ADENOPATHY: None visualized REPRODUCTIVE ORGANS: No significant abnormality is seen PELVIC ADENOPATHY: None visualized. OSSEOUS STRUCTURES: No significant abnormality is seen. BOWEL: No significant abnormality is seen. No [place] obstruction or bowel wall thickening. No pneumat osis or pneumoperitoneum. Mesentery unremarkable as seen. OTHER: Markedly advanced nonaneurysmal atherosclerotic intimal consolidations are seen throughout the visualized arterial anatomy. IMPRESSION: NO DEFINITE ACUTE ABDOMINAL PELVIC PROCESS. BILATERAL PLEURAL EFFUSIONS WITH BIBASILAR AIRLESSNESS.
[2019-06-08] MEDS ORDERED: methylPREDNISolone SOD SUCCI 125 MG/2 ML VIAL IV STA (19:38)
[2019-06-08] MEDS ORDERED: IPRATROPIUM-ALBUTEROL 3 ML NEB INHALATION STA (19:38)
[2019-06-08] MEDS ORDERED: VANCOMYCIN IV PER PHARMACY 1 EACH MISC MISCELLANE PRN (19:42)
[2019-06-08] MEDS ORDERED: VANCOMYCIN 1,500 MG in SODIUM CHLORIDE 0.9% 250 ML IVPB ONE (20:15)
[2019-06-08] MEDS: SODIUM CHLORIDE 0.9% 1,000 ML IV SCH (20:22)
[2019-06-08 21:09] LABS: Glucose,Whole Blood 135 mg/dL (75-99)
[2019-06-08] MEDS ORDERED: INSULIN DETEMIR (LEVEMIR) 100 UNIT/ML SYR SQ SCH (22:30)
[2019-06-08] MEDS: hydrALAZINE HCL 25 MG TAB PO SCH (22:49)
[2019-06-08] MEDS: METOPROLOL SUCCINATE (ER) 100 MG TAB.ER.24H PO SCH (22:49)
[2019-06-08] MEDS: HEPARIN SODIUM,PORCINE 5,000 UNIT/ML 1 ML VIAL SQ SCH (22:50)
[2019-06-08] MEDS: MORPHINE SULFATE 4 MG/ML SYRINGE IVP PRN (22:51)
--- NOTE | 2019-06-08 23:29 | P.HPIM ---
History of Present Illness H&P Date: 06/08/19 Chief Complaint: erythema of the abd of 2-3 days duration 48 year old female with CML, DM, COPD. recently discharged after being hospitalized for COPD exacerbation. she just finished her PO steroid course. denies any respiratory issues at this time. she comes in due to 3 day history of erythema over her lower abd, started over left lower quadrant and started spreading over the lower abd, associated with chills, no fever, denies any injury, or trauma. when she was at her doctors office she noticed tender spot just lateral to the midline over lower abd, denies associated urinary symptoms. she reports lower abd pain 8/10 in severity achy pain. worse with touching her abd. . denies any drainage. reports history of abd wall infection requiring drains about 6 years ago denies any respiratory symptoms at this time. denies any chest pain or trouble breathing. during physical exam , we noticed another area of erythema over right inner thigh. in the ED, she was started on ABx and admiited for further evaluation abd / pelvis CT without contrast, showed no acute abnormalities Review of Systems Pertinent positives as noted in HPI. All other systems were reviewed and are negative Past Medical History Past Medical History: Cancer, Heart Failure, COPD, CVA/TIA, Diabetes Mellitus, Hyperlipidemia, Hypertension, Renal Disease, Vascular Disorder Additional Past Medical History / Comment(s): CHF, valvular heart disease with MR, peripheral vascular disease, CML. 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 History of Any Multi-Drug Resistant Organisms: None Reported Past Surgical History: Appendectomy, Bowel Resection, Orthopedic Surgery, Tubal Ligation Additional Past Surgical History / Comment(s): Hx of colostomy and reversal, rotator cuff repair on Left, hx of bifem bypass. Colonoscopy 2012, cardiac catheterization Past Anesthesia/Blood Transfusion Reactions: No Reported Reaction Past Psychological History: Anxiety, Depression Smoking Status: Current every day smoker Past Alcohol Use History: None Reported Past Drug Use History: Marijuana - Past Family History Mother Family Medical History: Congestive Heart Failure (CHF), Diabetes Mellitus Brother(s) Additional Family Medical History / Comment(s): CABG Sister(s) Family Medical History: CVA/TIA Additional Family Medical History / Comment(s): Maternal aunt had breast cancer. Medications and Allergies Home Medications Medication Instructions Recorded Confirmed Type Clopidogrel Bisulfate [Plavix] 75 mg PO DAILY@0900 01/21/15/06/20 History Ergocalciferol (Vitamin D2) 50,000 unit PO TEJEDA 01/21/15 06/08/19 History [Drisdol] Ferrous Sulfate [Iron (65 MG 325 mg PO BID@0900,1200 01/21/15 06/08/19 History Elemental)] Loratadine [Claritin] 10 mg PO DAILY@0900 01/21/15 06/08/19 History lamoTRIgine [LaMICtal] 25 mg PO BID@0900,119901/21/15 06/08/19 History Albuterol Inhaler [Ventolin Hfa 2 puff INHALATION RT-Q6H PRN 06/30/17 06/08/19 History Inhaler] Atorvastatin [Lipitor] 80 mg PO HS 06/30/17 06/08/19 History Citalopram Hydrobromide [CeleXA] 20 mg PO DAILY@0906/30/17 06/08/19 History Famotidine [Pepcid] 40 mg PO DAILY@0906/18/18 06/08/19 History amLODIPine [Norvasc] 10 mg PO DAILY@119906/18/18 06/08/19 History hydrALAZINE HCL 25 mg PO BID@899,199907/02/18 06/08/19 History Insulin Glargine,Hum.rec.anlog 22 units SQ HS 07/03/18 06/08/19 History [Basaglar Kwikpen U-100] Allopurinol [Zyloprim] 100 mg PO DAILY@119908/30/18 06/08/19 History Metoprolol Succinate [Toprol XL] 100 mg PO HS 10/08/18 06/08/19 History Umeclidinium [place] [Incruse 1 puff INHALATION RT-HS 10/08/18 06/08/19 History Ellipta] Aspirin 81 mg PO DAILY@119912/05/18 06/08/19 History Furosemide [Lasix] 40 mg PO BID@0900,1200 05/22/19 06/08/19 History Insulin Lispro [Admelog] See Protocol SQ AC-TID 05/22/19 06/08/19 History Ipratropium Nebulized [Atrovent 0.5 mg INHALATION RT-Q6H PRN 06/08/19 06/08/19 History Nebulized 0.2 MG/ML] Isosorbide Mononitrate ER [Imdur] 60 mg PO DAILY@1200 06/08/19 06/08/19 History Varenicline [Chantix Continuing 1 mg PO BID@0900,1200 06/08/19 06/08/19 History Pack] Allergies Allergy/AdvReac Type Severity Reaction Status Date / Time bee venom protein (honey bee) Allergy Anaphylaxis Verified 06/08/19 19:13 Penicillins Allergy Rash/Hives Verified 06/08/19 19:13 Physical Exam Vitals: Vital Signs Temp Pulse Pulse Resp BP BP Pulse Ox 06/08/19 21:02 98.8 F 80 15 188/66 93 L 06/08/19 20:24 79 06/08/19 20:05 77 18 06/08/19 19:57 98.2 F 78 18 183/84 92 L 06/08/19 16:11 98.2 F 70 18 181/80 99 Intake and Output 06/08/19 06/08/19 06/08/19 06:59 14:59 22:59 Other: Weight 75.75 kg Constitutional: No acute distress, conversant, pleasant Eyes: Anicteric sclerae, moist conjunctiva, no lid-lag Pupils equal round reactive to light ENMT: NC/AT Oropharynx clear, no erythema, exudates Neck: Supple, FROM, no masses, or JVD No carotid bruits No thyromegaly Lungs: Clear to auscultation Clear to percussion Normal respiratory effort, no accessory muscle use Cardiovascular: Heart regular in rate and rhythm, No murmurs, gallops, or rubs No peripheral edema abd , soft lax, tenderness to palpation over the erythematous lower abd, mainly over the suprapubic region left to the midline, with very superficial palpation. erythem marked extending over lower abd. erythema also noted over right inner thigh and was marked , no tenderness non of these areas shows any induration , open wounds, or drainage these two areas felt same warmth as the rest of surrounding skin. bowel sounds positive, no palpable organomegally no guarding, rebound , or rigidity. no abd wall hernias Skin: erythema over the abd and right inner thigh as mentioned above otherwise Normal temperature, tone, texture, turgor echymotic spots over bilateral lower extremities Extremities: No digital cyanosis No clubbing Pedal pulses intact and symmetrical Radial pulses intact and symmetrical No calf tenderness Psychiatric: Alert and oriented to person, place and time Appropriate affect fair judgement Neuro Muscles Strength 5/5 in all 4 extremities Sensation to light touch grossly present throughout Cranial nerves II-XII grossly intact No focal sensory deficits Lymphatics: no palpable cervical or supraclavicular , or inguinal lymph nodes Results CBC & Chem 7: 06/08/19 17:14 06/08/19 17:14 Labs: Abnormal Lab Results - Last 24 Hours (Table) 06/08/19 06/08/19 06/08/19 Range/Units 17:05 17:14 17:14 WBC 15.0 H (3.8-10.6) k/uL RBC 3.11 L (3.80-5.40) m/uL Hgb 9.9 L (11.4-16.0) gm/dL Hct 30.1 L (34.0-46.0) % Neutrophils # 13.3 H (1.3-7.7) k/uL Lymphocytes # 0.7 L (1.0-4.8) k/uL Sodium 136 L (137-145) mmol/L Carbon Dioxide 21 L (22-30) mmol/L BUN 50 H (7-17) mg/dL Creatinine 2.00 H (0.52-1.04) mg/dL Glucose 119 H (74-99) mg/dL POC Glucose (mg/dL) (75-99) mg/dL Magnesium 2.4 H (1.6-2.3) mg/dL AST 40 H (14-36) U/L ALT 64 H (4-34) U/L Total Protein 5.7 L (6.3-8.2) g/dL Albumin 3.3 L (3.5-5.0) g/dL Amylase <30 L (30-110) U/L Urine Protein 3+ H (Negative) Urine Blood Small H (Negative) Urine RBC 6 H (0-5) /hpf Urine Bacteria Rare H (None) /hpf Hyaline Casts 4 H (0-2) /lpf Urine Mucus Rare H (None) /hpf 06/08/19 Range/Units 21:07 WBC (3.8-10.6) k/uL RBC (3.80-5.40) m/uL Hgb (11.4-16.0) gm/dL Hct (34.0-46.0) % Neutrophils # (1.3-7.7) k/uL Lymphocytes # (1.0-4.8) k/uL Sodium (137-145) mmol/L Carbon Dioxide (22-30) mmol/L BUN (7-17) mg/dL Creatinine (0.52-1.04) mg/dL Glucose (74-99) mg/dL POC Glucose (mg/dL) 135 H (75-99) mg/dL Magnesium (1.6-2.3) mg/dL AST (14-36) U/L ALT (4-34) U/L Total Protein (6.3-8.2) g/dL Albumin (3.5-5.0) g/dL Amylase (30-110) U/L Urine Protein (Negative) Urine Blood (Negative) Urine RBC (0-5) /hpf Urine Bacteria (None) /hpf Hyaline Casts (0-2) /lpf Urine Mucus (None) /hpf Assessment and Plan Assessment: 48 year old female with CML, DM, COPD. admitted under observation due to erythema of the lower abd and right inner thigh to rule out cellulitis of the skin. Plan: possible cellulitis of the abd wall , erythema without any induration follow up cultures pain control symptomatic control empiric ABx with vanco, dosing by pharmacy erythema was marked patient describes history of cellulitis of the abd wall secondary to infected boil CT of the abdomen pelvis, showed no acute pathology hypertensive urgency resume home blood pressure medications asymptomatic monitor vital signs dehydration hold diuretics gentle IV fluid hydration chronic conditions CKD IV stable COPD , compensated, not on homo oxygen breathing treatments as needed resume home inhalers patient just finished course of steroids discontinue IV steroids CML , op follow up diabetes mellitus , insulin sliding scale , continue home basal insulin valvular heart disease, LVEF 50% DVT PPx heparin sc tid GI ppx on famotidine full code anticipated discharge to home , anticipated length of stay <2 midnights 60 minutes spent in the care of this patient , 50% of the time spent in counseling and coordinating care.
[2019-06-09] MEDS ORDERED: methylPREDNISolone SOD SUCCI 125 MG/2 ML VIAL IV SCH
[2019-06-09] MEDS ORDERED: INSULIN DETEMIR (LEVEMIR) 100 UNIT/ML SYR SQ SCH (04:12)
[2019-06-09] MEDS: SODIUM CHLORIDE 0.9% 1,000 ML IV SCH ×2 (06:15→17:18)
[2019-06-09 07:08] LABS: Glucose,Whole Blood 376 mg/dL (75-99)
[2019-06-09] MEDS: INSULIN ASPART (NovoLOG) 100 UNIT/ML VIAL SQ SCH ×6 (07:31→20:42)
[2019-06-09] MEDS ORDERED: IPRATROPIUM-ALBUTEROL 3 ML NEB INHALATION SCH (08:00)
[2019-06-09] MEDS: IPRATROPIUM-ALBUTEROL 3 ML NEB INHALATION SCH ×4 (08:12→20:31)
[2019-06-09] MEDS: IPRATROPIUM 0.5 MG/2.5 ML NEBU INHALATION SCH ×4 (08:17→20:33)
[2019-06-09] MEDS ORDERED: FAMOTIDINE 20 MG TAB PO SCH (09:00)
[2019-06-09] MEDS: HEPARIN SODIUM,PORCINE 5,000 UNIT/ML 1 ML VIAL SQ SCH ×3 (09:51→23:48)
[2019-06-09] MEDS: FERROUS SULFATE 325 MG TAB PO SCH ×2 (09:51→11:57)
[2019-06-09] MEDS: hydrALAZINE HCL 25 MG TAB PO SCH ×2 (09:51→20:39)
[2019-06-09] MEDS: LORATADINE 10 MG TAB PO SCH (09:51)
[2019-06-09] MEDS: CITALOPRAM HYDROBROMIDE 20 MG TAB PO SCH (09:52)
[2019-06-09] MEDS: CLOPIDOGREL 75 MG TAB PO SCH (09:52)
[2019-06-09] MEDS: lamoTRIgine 25 MG TAB PO SCH ×2 (09:52→11:58)
[2019-06-09] MEDS: VARENICLINE 1 MG TAB PO SCH ×2 (09:52→11:57)
--- NOTE | 2019-06-09 09:52 | P.PN ---
Subjective Progress Note Date: 06/09/19 Principal diagnosis: abdominal wall redness Patient is a 48-year-old female with a past medical history of COPD, systolic congestive heart failure, diabetes mellitus type 2 suboptimally controlled, and multiple other comorbid conditions who presented to the hospital with complaints of abdominal redness. In the ER she underwent an extensive evaluation. On her initial vital signs her blood pressure was elevated at 181/80. Laboratory analysis showed an elevated white blood cell count of 15, hemoglobin 9.9 (at baseline), BUN 50, creatinine 2 (better than baseline), and mild transaminitis. She underwent a CT abdomen and pelvis which showed no acute process. She was started on vancomycin and admitted for cellulitis. Patient was recently hospitalized here from 05/22 through 05/24 for acute exacerbation of COPD and recently completed her steroid taper. Patient seen and examined at bedside. She states her redness is already getting better, she is having less pain, no shortness of breath, no chest pain, and her edema is at baseline. Objective - Vital Signs Vital signs: Vital Signs Temp 98.2 F 06/09/19 07:00 Pulse 76 06/09/19 08:19 Resp 16 06/09/19 07:00 BP 163/76 06/09/19 07:00 Pulse Ox 98 06/09/19 07:00 Intake & Output 06/08/19 06/09/19 06/09/19 18:59 06:59 18:59 Intake Total 600 320 Balance 600 320 Weight 75.75 kg 75.75 kg Intake: Oral 600 320 Other: # Voids 1 - Exam General: Hearing, appears older than stated age, no distress, Derm: Erythema left lower quadrant and right lower extremity inner thigh with warmth, warm, dry Head: atraumatic, normocephalic, symmetric Eyes: EOMI, no lid lag, anicteric sclera Mouth: no lip lesion, mucus membranes moist Cardiovascular: S1S2 reg, no murmur, positive posterior tibial pulse bilateral, Lungs: Decreased breath sounds bilateral, no rhonchi, no rales , no accessory muscle use Abdominal: soft, nontender to palpation, no guarding, no appreciable organomegaly Ext: no gross muscle atrophy, 2+ edema, no contractures Neuro: CN II-XI grossly intact, no focal neuro deficits Psych: Alert, oriented, appropriate affect - Labs CBC & Chem 7: 06/08/19 17:14 06/08/19 17:14 Labs: Abnormal Lab Results - Last 24 Hours (Table) 06/08/19 06/08/19 06/08/19 Range/Units 17:05 17:14 17:14 WBC 15.0 H (3.8-10.6) k/uL RBC 3.11 L (3.80-5.40) m/uL Hgb 9.9 L (11.4-16.0) gm/dL Hct 30.1 L (34.0-46.0) % Neutrophils # 13.3 H (1.3-7.7) k/uL Lymphocytes # 0.7 L (1.0-4.8) k/uL Sodium 136 L (137-145) mmol/L Carbon Dioxide 21 L (22-30) mmol/L BUN 50 H (7-17) mg/dL Creatinine 2.00 H (0.52-1.04) mg/dL Glucose 119 H (74-99) mg/dL POC Glucose (mg/dL) (75-99) mg/dL Magnesium 2.4 H (1.6-2.3) mg/dL AST 40 H (14-36) U/L ALT 64 H (4-34) U/L Total Protein 5.7 L (6.3-8.2) g/dL Albumin 3.3 L (3.5-5.0) g/dL Amylase <30 L (30-110) U/L Urine Protein 3+ H (Negative) Urine Blood Small H (Negative) Urine RBC 6 H (0-5) /hpf Urine Bacteria Rare H (None) /hpf Hyaline Casts 4 H (0-2) /lpf Urine Mucus Rare H (None) /hpf 06/08/19 06/09/19 Range/Units 21:07 07:06 WBC (3.8-10.6) k/uL RBC (3.80-5.40) m/uL Hgb (11.4-16.0) gm/dL Hct (34.0-46.0) % Neutrophils # (1.3-7.7) k/uL Lymphocytes # (1.0-4.8) k/uL Sodium (137-145) mmol/L Carbon Dioxide (22-30) mmol/L BUN (7-17) mg/dL Creatinine (0.52-1.04) mg/dL Glucose (74-99) mg/dL POC Glucose (mg/dL) 135 H 376 H (75-99) mg/dL Magnesium (1.6-2.3) mg/dL AST (14-36) U/L ALT (4-34) U/L Total Protein (6.3-8.2) g/dL Albumin (3.5-5.0) g/dL Amylase (30-110) U/L Urine Protein (Negative) Urine Blood (Negative) Urine RBC (0-5) /hpf Urine Bacteria (None) /hpf Hyaline Casts (0-2) /lpf Urine Mucus (None) /hpf Assessment and Plan Assessment: Lower abdominal right lower extremity cellulitis with sepsis -Vancomycin - minimize IV fluids secondary to CHF -Await blood cultures -Check venous Doppler Chronic systolic congestive heart failure with ejection fraction 45-50% -Continue with metoprolol -Reorder home Lasix -Not chronically an MI inhibitor and we'll not start at this point in time secondary to chronic kidney disease DM 2 with hyperglycemia - Scale insulin with fixed dose -Continue with long-acting -Hemoglobin A1c CKD IV at baseline Cr 2.5-2.8 -Monitor creatinine closely with use of vancomycin -Avoid additional nephrotoxic agents COPD without excaerbation -Resume inhalers -When necessary bronchodilators HTN urgency - Bp improving - Continue current meds, follow BP Tobacco abuse - cessation - chantix - nicotine replacement DVT prophylaxis: Heparin Discussed with: Patient, nursing Anticipated discharge: 2-[address]: home A total of 35 minutes was spent on the care of this complex patient more than 50% of the time was spent in counseling and care coordination.
[2019-06-09] MEDS: NICOTINE 14MG/24HR PATCH TRANSDERM SCH (09:58)
[2019-06-09] MEDS ORDERED: ALBUTEROL NEBULIZED 2.5 MG/3 ML INHALATION PRN (10:06)
[2019-06-09] MEDS ORDERED: DOCUSATE 100 MG CAP PO PRN (10:06)
[2019-06-09] MEDS ORDERED: ACETAMINOPHEN TAB 325 MG TAB PO PRN (10:06)
[2019-06-09] MEDS ORDERED: ONDANSETRON 4 MG/2 ML VIAL IVP PRN (10:06)
--- NOTE | 2019-06-09 11:09 | US ---
EXAMINATION TYPE: US venous doppler duplex LE RT DATE OF EXAM: 06/09/2019 10:12 AM COMPARISON: NONE CLINICAL HISTORY: clot. redness on left abd and right thigh, no h/o dvt SIDE PERFORMED: right TECHNIQUE: The lower extremity deep venous system is examined utilizing real time linear array sonog hillary with graded compression, doppler sonography and color-flow sonography. VESSELS IMAGED: External Iliac Vein (EIV) Common Femoral Vein Deep Femoral Vein Greater Saphenous Vein * Femoral Vein Popliteal Vein Small Saphenous Vein * Proximal Calf Veins (* superficial vessels) Right Leg: Appears negative for DVT IMPRESSION: 1. Right lower extremity ultrasound negative for deep venous thrombosis.
[2019-06-09 11:27] VITALS: BMI 29.5
[2019-06-09 11:32] LABS: Glucose,Whole Blood 479 mg/dL (75-99)
[2019-06-09] MEDS ORDERED: INSULIN ASPART (NovoLOG) 100 UNIT/ML VIAL SQ ONE ×2 (11:41→16:58)
[2019-06-09] MEDS: amLODIPine 10 MG TAB PO SCH (11:57)
[2019-06-09] MEDS: ISOSORBIDE MONONITRATE ER 60 MG TAB.ER.24H PO SCH (11:57)
[2019-06-09] MEDS: ASPIRIN 81 MG PO SCH (11:58)
[2019-06-09] MEDS: FUROSEMIDE 40 MG TAB PO SCH (11:58)
[2019-06-09 16:38] LABS: Glucose,Whole Blood 450 mg/dL (75-99)
[2019-06-09] MEDS: VANCOMYCIN 1,500 MG in SODIUM CHLORIDE 0.9% 250 ML IVPB SCH (19:01)
[2019-06-09 20:07] LABS: Glucose,Whole Blood 391 mg/dL (75-99)
[2019-06-09] MEDS: ALPRAZolam 0.5 MG TAB PO PRN (20:11)
[2019-06-09] MEDS: ATORVASTATIN 80 MG TAB PO SCH (20:40)
[2019-06-09] MEDS: METOPROLOL SUCCINATE (ER) 100 MG TAB.ER.24H PO SCH (20:40)
[2019-06-09] MEDS: INSULIN DETEMIR (LEVEMIR) 100 UNIT/ML SYR SQ SCH (20:41)
[2019-06-10 01:21] LABS: Glucose,Whole Blood 197 mg/dL (75-99)
[2019-06-10] MEDS: SODIUM CHLORIDE 0.9% 1,000 ML IV SCH ×2 (02:27→20:29)
[2019-06-10 06:50] LABS: Glucose,Whole Blood 82 mg/dL (75-99)
[2019-06-10] MEDS: INSULIN ASPART (NovoLOG) 100 UNIT/ML VIAL SQ SCH ×7 (07:15→20:28)
[2019-06-10 08:16] LABS: Potassium 4.5 mmol/L (3.5-5.1)
[2019-06-10] MEDS: CITALOPRAM HYDROBROMIDE 20 MG TAB PO SCH (08:19)
[2019-06-10] MEDS: HEPARIN SODIUM,PORCINE 5,000 UNIT/ML 1 ML VIAL SQ SCH ×2 (08:19→17:09)
[2019-06-10] MEDS: LORATADINE 10 MG TAB PO SCH (08:19)
[2019-06-10] MEDS: CLOPIDOGREL 75 MG TAB PO SCH (08:19)
[2019-06-10] MEDS: VARENICLINE 1 MG TAB PO SCH ×2 (08:20→12:07)
[2019-06-10] MEDS: NICOTINE 14MG/24HR PATCH TRANSDERM SCH (08:20)
[2019-06-10] MEDS: lamoTRIgine 25 MG TAB PO SCH ×2 (08:20→12:07)
[2019-06-10 08:23] LABS: HCT 25.9 % (34.0-46.0); MCH 32.1 pg (25.0-35.0); MCV 100.2 fL (80.0-100.0); Macrocytosis Slight; Mean Platelet Volume 10.3; Platelet Count 175 k/uL (150-450); RBC 2.59 m/uL (3.80-5.40); RDW 15.3 % (11.5-15.5); WBC 14.1 k/uL (3.8-10.6)
[2019-06-10] MEDS: FAMOTIDINE 20 MG TAB PO SCH (08:23)
[2019-06-10] MEDS: hydrALAZINE HCL 25 MG TAB PO SCH ×2 (08:23→20:27)
[2019-06-10] MEDS: FUROSEMIDE 40 MG TAB PO SCH ×2 (08:23→12:04)
[2019-06-10] MEDS: FERROUS SULFATE 325 MG TAB PO SCH ×2 (08:23→12:04)
[2019-06-10] MEDS: IPRATROPIUM-ALBUTEROL 3 ML NEB INHALATION SCH ×4 (08:52→20:44)
[2019-06-10 08:58] LABS: HGB 8.3 gm/dL (11.4-16.0)
--- NOTE | 2019-06-10 11:07 | P.PN ---
Subjective Progress Note Date: 06/10/19 Patient is a 48-year-old female with a past medical history of COPD, systolic congestive heart failure, diabetes mellitus type 2 suboptimally controlled, and multiple other comorbid conditions who presented to the hospital with complaints of abdominal redness. In the ER she underwent an extensive evaluation. On her initial vital signs her blood pressure was elevated at 181/80. Laboratory analysis showed an elevated white blood cell count of 15, hemoglobin 9.9 (baseline at presentation), BUN 50, creatinine 2 (better than baseline), and mild transaminitis. She underwent a CT abdomen and pelvis which showed no acute process. She was started on vancomycin and admitted for cellu litis. Patient was recently hospitalized here from 05/22 through 05/24 for acute exacerbation of COPD and recently completed her steroid taper. Patient seen and examined at bedside. She states her redness is already getting better, she is having less pain, no shortness of breath, no chest pain, and her edema is now slightly worse than her baseline. Patient also reported that she is being mostly laying in her bed or sitting on a chair not active and recently she finished course of steroids and she is relating to it causing her worsening of the leg swelling. Patient denied rest of the review system. Objective - Vital Signs Vital signs: Vital Signs Temp 97.8 F 06/10/19 07:51 Pulse 64 06/10/19 09:03 Resp 16 06/10/19 08:00 BP 116/52 06/10/19 07:51 Pulse Ox 98 06/10/19 08:54 Intake & Output 06/09/19 06/10/19 06/10/19 18:59 06:59 18:59 Intake Total 320 300 Balance 320 300 Weight 75.75 kg Intake: IV 300 Sodium Chloride 0.9% 1, 300 000 ml @ 100 mls/hr IV . Q10H KESHAWN Rx#:[id number] Oral 320 Other: # Voids 2 1 - Constitutional General appearance: Present: cooperative, no acute distress - EENT Eyes: Present: EOMI, normal appearance ENT: Present: hearing grossly normal, NA/AT - Neck Neck: Present: normal ROM. Absent: lymphadenopathy, rigidity, stridor, thyromegaly - Respiratory Respiratory: bilateral: diminished, rales (Few crackles at the bases bilaterally), negative: CTA, dullness, rhonchi, wheezing - Cardiovascular Rhythm: regular Heart sounds: normal: S1, S2 Abnormal Heart Sounds: Absent: systolic murmur, diastolic murmur, S3 Gallop, S4 Gallop - Gastrointestinal General gastrointestinal: Present: normal bowel sounds, soft. Absent: hepatomegaly, rigid, tenderness - Neurologic Neurologic: Present: CNII-XII intact. Absent: focal deficits - Psychiatric Psychiatric: Present: A&O x's 3, appropriate affect, intact judgment & insight - Allied health notes Allied health notes reviewed: nursing - Labs CBC & Chem 7: 06/10/19 07:04 06/10/19 07:04 Labs: Abnormal Lab Results - Last 24 Hours (Table) 06/09/19 06/09/19 06/09/19 Range/Units 11:30 16:36 20:05 WBC (3.8-10.6) k/uL RBC (3.80-5.40) m/uL Hgb (11.4-16.0) gm/dL Hct (34.0-46.0) % MCV (80.0-100.0) fL Carbon Dioxide (22-30) mmol/L BUN (7-17) mg/dL Creatinine (0.52-1.04) mg/dL Glucose (74-99) mg/dL POC Glucose (mg/dL) 479 H 450 H 391 H (75-99) mg/dL Calcium (8.4-10.2) mg/dL 06/10/19 06/10/19 06/10/19 Range/Units 01:19 07:04 07:04 WBC 14.1 H (3.8-10.6) k/uL RBC 2.59 L (3.80-5.40) m/uL Hgb 8.3 L D (11.4-16.0) gm/dL Hct 25.9 L (34.0-46.0) % MCV 100.2 H (80.0-100.0) fL Carbon Dioxide 21 L (22-30) mmol/L BUN 58 H (7-17) mg/dL Creatinine 2.14 H (0.52-1.04) mg/dL Glucose 58 L (74-99) mg/dL POC Glucose (mg/dL) 197 H (75-99) mg/dL Calcium 8.0 L (8.4-10.2) mg/dL Microbiology - Last 24 Hours (Table) 06/08/19 20:19 Blood Culture - Preliminary Blood No Growth after 24 hours Assessment and Plan Plan: Lower abdominal right lower extremity cellulitis without sepsis - Vancomycin pre pharmacy dosing - minimize IV fluids secondary to CHF - Blood cultures negative to date - Venous Doppler reported as negative for DVT Chronic systolic congestive heart failure with ejection fraction 45-50% -Continue with metoprolol -Reorder home Lasix -Not chronically an MI inhibitor and we'll not start at this point in time secondary to chronic kidney disease DM 2 with hyperglycemia - Scale insulin with fixed dose - Continue with long-acting - Check HbA1c in AM CKD IV at baseline Cr 2.5-2.8 - Monitor creatinine closely with use of vancomycin, pharmacy will check random trough level in AM - Avoid additional nephrotoxic agents COPD without excaerbation -Resume inhalers -When necessary bronchodilators HTN urgency - Bp improving - Continue current meds, follow BP Tobacco abuse - cessation - chantix - nicotine replacement DVT prophylaxis: Heparin Discussed with: Patient, nursing Anticipated discharge: 1-[address]: home Time with Patient: Less than 30
[2019-06-10 11:22] LABS: ALT 57 U/L (4-34); AST 51 U/L (14-36); Alkaline Phosphatase 106 U/L (38-126)
[2019-06-10 11:56] LABS: Glucose,Whole Blood 252 mg/dL (75-99)
[2019-06-10] MEDS: amLODIPine 10 MG TAB PO SCH (12:04)
[2019-06-10] MEDS: ISOSORBIDE MONONITRATE ER 60 MG TAB.ER.24H PO SCH (12:04)
[2019-06-10] MEDS: ASPIRIN 81 MG PO SCH (12:04)
[2019-06-10 16:48] LABS: Glucose,Whole Blood 72 mg/dL (75-99)
[2019-06-10] MEDS: VANCOMYCIN 1,500 MG in SODIUM CHLORIDE 0.9% 250 ML IVPB SCH (17:09)
[2019-06-10 20:12] LABS: Glucose,Whole Blood 211 mg/dL (75-99)
[2019-06-10] MEDS: METOPROLOL SUCCINATE (ER) 100 MG TAB.ER.24H PO SCH (20:28)
[2019-06-10] MEDS: ALPRAZolam 0.5 MG TAB PO PRN (20:28)
[2019-06-10] MEDS: ATORVASTATIN 80 MG TAB PO SCH (20:29)
[2019-06-10] MEDS: INSULIN DETEMIR (LEVEMIR) 100 UNIT/ML SYR SQ SCH (20:29)
[2019-06-11] MEDS: HEPARIN SODIUM,PORCINE 5,000 UNIT/ML 1 ML VIAL SQ SCH ×4 (00:07→23:56)
[2019-06-11 03:18] LABS: Glucose,Whole Blood 122 mg/dL (75-99)
[2019-06-11] MEDS: SODIUM CHLORIDE 0.9% 1,000 ML IV SCH ×2 (06:08→20:33)
[2019-06-11 06:50] LABS: Glucose,Whole Blood 114 mg/dL (75-99)
[2019-06-11 07:57] LABS: Basophils % (A) 0 %; Eosinophils # (A) 0.4 k/uL (0-0.7); Eosinophils % (A) 4 %; HCT 27.2 % (34.0-46.0); HGB 8.6 gm/dL (11.4-16.0); Lymphocytes # (A) 0.7 k/uL (1.0-4.8); Lymphocytes % (A) 7 %; MCH 31.9 pg (25.0-35.0); MCHC 31.7 g/dL (31.0-37.0); MCV 100.8 fL (80.0-100.0); Macrocytosis Slight; Mean Platelet Volume 9.6; Monocytes # (A) 0.4 k/uL (0-1.0); Monocytes % (A) 4 %; Neutrophils # (A) 8.2 k/uL (1.3-7.7); Neutrophils % (A) 84 %; Platelet Count 211 k/uL (150-450); RDW 15.8 % (11.5-15.5); WBC 9.8 k/uL (3.8-10.6)
[2019-06-11 08:15] LABS: Calcium 8.2 mg/dL (8.4-10.2); Potassium 4.1 mmol/L (3.5-5.1)
[2019-06-11] MEDS: INSULIN ASPART (NovoLOG) 100 UNIT/ML VIAL SQ SCH ×7 (08:39→20:52)
[2019-06-11] MEDS: LORATADINE 10 MG TAB PO SCH (08:47)
[2019-06-11] MEDS: FERROUS SULFATE 325 MG TAB PO SCH ×2 (08:47→12:12)
[2019-06-11] MEDS: hydrALAZINE HCL 25 MG TAB PO SCH ×2 (08:47→20:51)
[2019-06-11] MEDS: FUROSEMIDE 40 MG TAB PO SCH ×2 (08:47→12:12)
[2019-06-11] MEDS: FAMOTIDINE 20 MG TAB PO SCH (08:47)
[2019-06-11] MEDS: CITALOPRAM HYDROBROMIDE 20 MG TAB PO SCH (08:47)
[2019-06-11] MEDS: CLOPIDOGREL 75 MG TAB PO SCH (08:48)
[2019-06-11] MEDS: VARENICLINE 1 MG TAB PO SCH ×2 (08:48→12:12)
[2019-06-11] MEDS: NICOTINE 14MG/24HR PATCH TRANSDERM SCH (08:48)
[2019-06-11] MEDS: lamoTRIgine 25 MG TAB PO SCH ×2 (08:48→12:12)
[2019-06-11] MEDS: IPRATROPIUM-ALBUTEROL 3 ML NEB INHALATION SCH ×4 (09:13→20:40)
[2019-06-11] MEDS ORDERED: VANCOMYCIN IV PER PHARMACY 1 EACH MISC MISCELLANE PRN (09:18)
[2019-06-11] MEDS: guaiFENesin-DM 600/30MG 1 EACH TAB.ER.12H PO PRN (11:11)
[2019-06-11 11:43] LABS: Glucose,Whole Blood 152 mg/dL (75-99)
[2019-06-11] MEDS: amLODIPine 10 MG TAB PO SCH (12:12)
[2019-06-11] MEDS: ASPIRIN 81 MG PO SCH (12:12)
[2019-06-11] MEDS: ISOSORBIDE MONONITRATE ER 60 MG TAB.ER.24H PO SCH (12:12)
--- NOTE | 2019-06-11 12:17 | P.PN ---
Subjective Progress Note Date: 06/11/19 Patient is a 48-year-old female with a past medical history of COPD, systolic congestive heart failure, diabetes mellitus type 2 suboptimally controlled, and multiple other comorbid conditions who presented to the hospital with complaints of abdominal redness. In the ER she underwent an extensive evaluation. On her initial vital signs her blood pressure was elevated at 181/80. Laboratory analysis showed an elevated white blood cell count of 15, hemoglobin 9.9 (baseline at presentation), BUN 50, creatinine 2 (better than baseline), and mild transaminitis. She underwent a CT abdomen and pelvis which showed no acute process. She was started on vancomycin and admitted for cellu litis. Patient was recently hospitalized here from 05/22 through 05/24 for acute exacerbation of COPD and recently completed her steroid taper. Patient seen and examined at bedside. Patient reports that she is feeling little short of breath today as she is delayed in her schedule breathing treatment. She was also requesting something Mucomyst that will help her lose and the secretion and she'll be able to cough up and clear her airways. Patient stated that her rash and infection of the abdominal wall is improving and day she has no fever or chills. Patient denies other complaints. Objective - Vital Signs Vital signs: Vital Signs Temp 97.5 F L 06/11/19 07:30 Pulse 74 06/11/19 12:00 Resp 16 06/11/19 08:53 BP 168/72 06/11/19 07:30 Pulse Ox 97 06/11/19 09:15 Intake & Output 06/10/19 06/11/19 06/11/19 18:59 06:59 18:59 Intake Total 175 490 Balance 175 490 Intake: Intake, IV Titration 175 250 Amount Sodium Chloride 0.9% 1, 175 000 ml @ 100 mls/hr IV . Q10H [facility] Rx#:[id number] Vancomycin 1,500 mg In 250 Sodium Chloride 0.9% 250 ml @ 125 mls/hr IVPB Q24H [facility] Rx#:[id number] Oral 240 Other: Voiding Method Toilet Toilet # Voids 2 - Constitutional General appearance: Present: cooperative, mild distress (Respiratory) - EENT Eyes: Present: EOMI, normal appearance ENT: Present: hearing grossly normal, NA/AT - Neck Neck: Present: normal ROM. Absent: lymphadenopathy, rigidity, stridor - Respiratory Respiratory: bilateral: diminished, rhonchi, wheezing, negative: CTA, dullness, rales - Cardiovascular Rhythm: regular Heart sounds: normal: S1, S2 Abnormal Heart Sounds: Absent: systolic murmur, diastolic murmur, S3 Gallop, S4 Gallop - Gastrointestinal Gastrointestinal Comment(s): Minimal abdominal wall erythema and tenderness, mostly it is improved. General gastrointestinal: Present: normal bowel sounds, soft. Absent: distended, rigid, tenderness - Neurologic Neurologic: Present: CNII-XII intact. Absent: focal deficits - Psychiatric Psychiatric: Present: A&O x's 3, appropriate affect, intact judgment & insight - Allied health notes Allied health notes reviewed: nursing - Labs CBC & Chem 7: 06/11/19 07:20 06/11/19 07:20 Labs: Abnormal Lab Results - Last 24 Hours (Table) 06/10/19 06/10/19 06/11/19 Range/Units 16:46 20:10 03:17 RBC (3.80-5.40) m/uL Hgb (11.4-16.0) gm/dL Hct (34.0-46.0) % MCV (80.0-100.0) fL RDW (11.5-15.5) % Neutrophils # (1.3-7.7) k/uL Lymphocytes # (1.0-4.8) k/uL Sodium (137-145) mmol/L Carbon Dioxide (22-30) mmol/L BUN (7-17) mg/dL Creatinine (0.52-1.04) mg/dL Glucose (74-99) mg/dL POC Glucose (mg/dL) 72 L 211 H 122 H (75-99) mg/dL Calcium (8.4-10.2) mg/dL 06/11/19 06/11/19 06/11/19 Range/Units 06:49 07:20 07:20 RBC 2.70 L (3.80-5.40) m/uL Hgb 8.6 L (11.4-16.0) gm/dL Hct 27.2 L (34.0-46.0) % MCV 100.8 H (80.0-100.0) fL RDW 15.8 H (11.5-15.5) % Neutrophils # 8.2 H (1.3-7.7) k/uL Lymphocytes # 0.7 L (1.0-4.8) k/uL Sodium 136 L (137-145) mmol/L Carbon Dioxide 21 L (22-30) mmol/L BUN 55 H (7-17) mg/dL Creatinine 2.25 H (0.52-1.04) mg/dL Glucose 72 L (74-99) mg/dL POC Glucose (mg/dL) 114 H (75-99) mg/dL Calcium 8.2 L (8.4-10.2) mg/dL 06/11/19 Range/Units 11:42 RBC (3.80-5.40) m/uL Hgb (11.4-16.0) gm/dL Hct (34.0-46.0) % MCV (80.0-100.0) fL RDW (11.5-15.5) % Neutrophils # (1.3-7.7) k/uL Lymphocytes # (1.0-4.8) k/uL Sodium (137-145) mmol/L Carbon Dioxide (22-30) mmol/L BUN (7-17) mg/dL Creatinine (0.52-1.04) mg/dL Glucose (74-99) mg/dL POC Glucose (mg/dL) 152 H (75-99) mg/dL Calcium (8.4-10.2) mg/dL Microbiology - Last 24 Hours (Table) 06/08/19 20:19 Blood Culture - Preliminary Blood No Growth after 48 hours Assessment and Plan Plan: Lower abdominal right lower extremity cellulitis without sepsis - Vancomycin pre pharmacy dosing - minimize IV fluids secondary to CHF - Blood cultures negative to date - Venous Doppler reported as negative for DVT Chronic systolic congestive heart failure with ejection fraction 45-50% -Continue with metoprolol -Reorder home Lasix, SOB still, will repeat CXR. -Not chronically an MI inhibitor and we'll not start at this point in time secondary to chronic kidney disease DM 2 with hyperglycemia - Scale insulin with fixed dose - Continue with long-acting - Check HbA1c in AM CKD IV at baseline Cr 2.5-2.8 - Monitor creatinine closely with use of vancomycin, pharmacy will check random trough level in AM - Avoid additional nephrotoxic agents - Nephrology consult obtained due to worsening renal function and pulmonary congestion on recent CXR, will repeat CXR today. COPD without excaerbation -Resumed inhalers, will give oral mucinex per pt's request, check CXR and continue NCO2 for now. HTN urgency - Bp improving - Continue current meds, follow BP Tobacco abuse - cessation - chantix - nicotine replacement DVT prophylaxis: Heparin Discussed with: Patient, nursing Anticipated discharge: Cellulitis improving and pt. was held in the hospital due to her worsening SOB an renal functions, 1-[address]: home Time with Patient: Less than 30
--- NOTE | 2019-06-11 12:45 | XR ---
EXAMINATION TYPE: XR chest 1V portable DATE OF EXAM: 06/11/2019 HISTORY: SOB. REFERENCE: Previous study dated 06/08/2019. FINDINGS: Heart size upper limits of normal. There is bibasilar airspace disease. There are small, bi lateral effusions. IMPRESSION: 1. BORDERLINE CARDIOMEGALY. 2. BIBASILAR AIRSPACE DISEASE. 3. SMALL, BILATERAL EFFUSIONS.
[2019-06-11] MEDS: MORPHINE SULFATE 4 MG/ML SYRINGE IVP PRN (13:42)
[2019-06-11 16:29] LABS: Glucose,Whole Blood 129 mg/dL (75-99)
[2019-06-11] MEDS ORDERED: VANCOMYCIN TROUGH DUE 1 EACH MISC MISCELLANE ONE (17:00)
[2019-06-11 20:30] LABS: Glucose,Whole Blood 208 mg/dL (75-99)
[2019-06-11] MEDS: ATORVASTATIN 80 MG TAB PO SCH (20:51)
[2019-06-11] MEDS: METOPROLOL SUCCINATE (ER) 100 MG TAB.ER.24H PO SCH (20:51)
[2019-06-11] MEDS: INSULIN DETEMIR (LEVEMIR) 100 UNIT/ML SYR SQ SCH (20:52)
[2019-06-12] MEDS: IPRATROPIUM-ALBUTEROL 3 ML NEB INHALATION SCH ×6 (00:15→19:07)
[2019-06-12] MEDS: MORPHINE SULFATE 4 MG/ML SYRINGE IVP PRN ×2 (03:34→23:45)
[2019-06-12] MEDS: guaiFENesin-DM 600/30MG 1 EACH TAB.ER.12H PO PRN (04:59)
[2019-06-12 06:57] LABS: Glucose,Whole Blood 74 mg/dL (75-99)
[2019-06-12 07:16] LABS: Calcium 8.3 mg/dL (8.4-10.2); Potassium 4.5 mmol/L (3.5-5.1)
[2019-06-12 07:21] LABS: Vancomycin,Random 23.3 ug/mL
[2019-06-12] MEDS: INSULIN ASPART (NovoLOG) 100 UNIT/ML VIAL SQ SCH ×7 (08:58→20:19)
[2019-06-12] MEDS: HEPARIN SODIUM,PORCINE 5,000 UNIT/ML 1 ML VIAL SQ SCH ×3 (08:58→23:46)
[2019-06-12] MEDS: FERROUS SULFATE 325 MG TAB PO SCH ×2 (08:59→13:05)
[2019-06-12] MEDS: CLOPIDOGREL 75 MG TAB PO SCH (08:59)
[2019-06-12] MEDS: FAMOTIDINE 20 MG TAB PO SCH (08:59)
[2019-06-12] MEDS: FUROSEMIDE 40 MG TAB PO SCH ×2 (09:01→11:47)
[2019-06-12] MEDS: LORATADINE 10 MG TAB PO SCH (09:01)
[2019-06-12] MEDS: hydrALAZINE HCL 25 MG TAB PO SCH ×2 (09:01→20:19)
[2019-06-12] MEDS ORDERED: CITALOPRAM HYDROBROMIDE 20 MG TAB PO STA (09:03)
[2019-06-12] MEDS: NICOTINE 14MG/24HR PATCH TRANSDERM SCH (09:03)
[2019-06-12] MEDS ORDERED: FUROSEMIDE 10 MG/ML 10 ML VIAL IV STA ×2 (10:47→11:42)
[2019-06-12] MEDS: VARENICLINE 1 MG TAB PO SCH ×2 (11:46→16:44)
[2019-06-12] MEDS: lamoTRIgine 25 MG TAB PO SCH ×2 (11:46→16:44)
[2019-06-12 11:48] LABS: Glucose,Whole Blood 168 mg/dL (75-99)
[2019-06-12 12:43] LABS: Hemoglobin A1C 10.1 % (4.0-6.0)
[2019-06-12] MEDS: ISOSORBIDE MONONITRATE ER 60 MG TAB.ER.24H PO SCH (13:05)
[2019-06-12] MEDS: amLODIPine 10 MG TAB PO SCH (13:05)
[2019-06-12] MEDS: ASPIRIN 81 MG PO SCH (13:05)
--- NOTE | 2019-06-12 16:37 | PN ---
PROGRESS NOTE Patient is seen for followup for chronic kidney disease. There were plans for possible discharge today. However, patient is complaining of increased lower extremity edema. As outpatient, her diuretics were decreased and patient states that her edema has worsened, particularly during her hospitalization. Her renal function has been very stable. PHYSICAL EXAMINATION: On examination today, blood pressure was 171/75, previously 148/73 this morning. Heart rate about 72 per minute. Patient is afebrile. EXAMINATION OF THE HEART: S1 and S2. EXAMINATION OF LUNGS: Bilateral breath sounds are heard. ABDOMEN: Soft, non-tender. Examination of lower extremities shows edema 2+ bilaterally. CHECK CLERK exam is grossly intact. LABS: Sodium 136, potassium 4.5, chloride 107. CO2 is 23. BUN 53, creatinine 2.0. ASSESSMENT: 1. Chronic kidney disease, NKF stage IV; renal function fairly stable. 2. Volume overload. I will give her an extra dose of IV Lasix tonight and we will maintain her on 40 IV q.12. Patient can be discharged tomorrow after her morning dose of IV Lasix. Her home oral Lasix dose will be changed to 60 mg p.o. b.i.d. and we will follow her up in the office in about one week post discharge. 3. Cardiomyopathy, ejection fraction 45% to 50%. 4. Hypertension. Blood pressure was elevated this afternoon. However, it was much better this morning. Expect further improvement with improving volume status. PLAN: IV Lasix x1 tonight and change Lasix to 40 mg IV q.12 hours. Patient can be discharged tomorrow after her morning dose of IV Lasix. She will take 60 mg p.o. b.i.d. at home post discharge and follow up in the office in about one week. MMODL / IJN: [id number] /
[2019-06-12] MEDS: SODIUM CHLORIDE 0.9% 1,000 ML IV SCH (16:44)
[2019-06-12 17:15] LABS: Glucose,Whole Blood 145 mg/dL (75-99)
[2019-06-12] MEDS: FUROSEMIDE 10 MG/ML 4 ML VIAL IV SCH (18:48)
[2019-06-12 20:05] LABS: Glucose,Whole Blood 296 mg/dL (75-99)
[2019-06-12] MEDS: METOPROLOL SUCCINATE (ER) 100 MG TAB.ER.24H PO SCH (20:19)
[2019-06-12] MEDS: ATORVASTATIN 80 MG TAB PO SCH (20:19)
[2019-06-12] MEDS: INSULIN DETEMIR (LEVEMIR) 100 UNIT/ML SYR SQ SCH (20:19)
[2019-06-13] MEDS: IPRATROPIUM-ALBUTEROL 3 ML NEB INHALATION SCH ×4 (00:01→12:12)
[2019-06-13 07:12] LABS: Glucose,Whole Blood 120 mg/dL (75-99)
[2019-06-13] MEDS: INSULIN ASPART (NovoLOG) 100 UNIT/ML VIAL SQ SCH ×4 (07:19→12:20)
[2019-06-13 08:10] LABS: Calcium 8.3 mg/dL (8.4-10.2); Potassium 4.7 mmol/L (3.5-5.1)
[2019-06-13 08:47] VITALS: BP 166/72; RESP 18; TEMP 98.7
[2019-06-13] MEDS: FUROSEMIDE 10 MG/ML 4 ML VIAL IV SCH (08:48)
[2019-06-13] MEDS: VARENICLINE 1 MG TAB PO SCH ×2 (08:49→12:20)
[2019-06-13] MEDS: FAMOTIDINE 20 MG TAB PO SCH (08:49)
[2019-06-13] MEDS: FERROUS SULFATE 325 MG TAB PO SCH ×2 (08:49→12:20)
[2019-06-13] MEDS: LORATADINE 10 MG TAB PO SCH (08:49)
[2019-06-13] MEDS: HEPARIN SODIUM,PORCINE 5,000 UNIT/ML 1 ML VIAL SQ SCH (08:49)
[2019-06-13] MEDS: CITALOPRAM HYDROBROMIDE 20 MG TAB PO SCH (08:49)
[2019-06-13] MEDS: NICOTINE 14MG/24HR PATCH TRANSDERM SCH (08:49)
[2019-06-13] MEDS: CLOPIDOGREL 75 MG TAB PO SCH (08:49)
[2019-06-13] MEDS: lamoTRIgine 25 MG TAB PO SCH ×2 (08:49→12:20)
[2019-06-13] MEDS: hydrALAZINE HCL 25 MG TAB PO SCH (08:49)
[2019-06-13] MEDS ORDERED: VANCOMYCIN 1,500 MG in SODIUM CHLORIDE 0.9% 250 ML IVPB ONE (09:00)
[2019-06-13] MEDS: SODIUM CHLORIDE 0.9% 1,000 ML IV SCH (11:09)
[2019-06-13 11:44] LABS: Glucose,Whole Blood 161 mg/dL (75-99)
[2019-06-13] MEDS: ASPIRIN 81 MG PO SCH (12:20)
[2019-06-13] MEDS: ISOSORBIDE MONONITRATE ER 60 MG TAB.ER.24H PO SCH (12:20)
[2019-06-13] MEDS: amLODIPine 10 MG TAB PO SCH (12:20)
[2019-06-13 12:21] VITALS: PULSE 84
--- NOTE | 2019-06-13 15:21 | P.DS ---
Providers Date of admission: 06/08/19 20:11 Expected date of discharge: 06/13/19 Attending physician: Vince Pyle MD Consults: 06/11/19 12:07 Consult Physician Routine Consulting Provider: Paxton Hinds Consult Reason/Comments: Renal failure with failure Do you want consulting provider notified?: Yes Primary care physician: [facility] Course: The patient is a 48-year-old female with a PMH of type 2 diabetes mellitus, COPD, systolic CHF, hypertension, hyperlipidemia, and CKD who presented to the ED with complaints of erythema over her abdomen. The patient had denied drainage though did report a history of abdominal wall infection requiring drains several years ago. The patient had undergone an extensive evaluation in the emergency room and was noted to have leukocytosis with a WBC count of 15, hemoglobin of 9.9, creatinine 2, and deranged LFTs. She also underwent a CT abdomen/pelvis which revealed no acute abnormalities. Patient was admitted for further management and was started on IV antibiotics with which her cellulitis gradually improved. The patient was seen and examined at the bedside on the day of discharge. She reported complete resolution of her erythema and pain over the abdomen and leg. She denied any additional complaints. She did report improvement in her lower extremity swelling after the initiation of IV Lasix. She denied chest discomfort, shortness of breath, nausea, vomiting, fever, or chills. Patient was elevated by nephrology due to her CKD and her worsening lower extremity edema and her Lasix dose was increased from 40 mg to 60 mg twice a day for discharge. Physical Examination General: Non-toxic, in no acute distress, appears older than stated age, normal weight HEENT: NC/AT, anicteric sclerae, moist conjunctiva, no lid-lag, PERRLA Cardiovascular: S1/S2 wnl, no murmurs, rubs, or gallops Lungs: Clear to auscultation, normal respiratory effort, no accessory muscle use Abdominal: Soft, non-tender, non-distended, no guarding, rebound, or rigidity Skin: Warm, dry Extremities: 1+ chavez LE pitting edema, no contractures Psychiatric: Alert and oriented to person, place and time, appropriate affect Neuro: CN II-XII grossly intact, Strength 5/5 in all 4 extremities, Speech intact, Sensation to light touch grossly intact throughout Discharge diagnosis: Tylenol cellulitis, resolved; chronic systolic CHF; type 2 diabetes mellitus; CKD; COPD without exacerbation; hypertension A total of 35 minutes of time were spent preparing this complex discharge summary. Patient Condition at Discharge: Fair Plan - Discharge Summary Discharge Rx Participant: Yes New Discharge Prescriptions: New Clindamycin [Cleocin] 300 mg PO Q6H #16 cap Furosemide [Lasix] 60 mg PO BID #60 tab Continue Clopidogrel Bisulfate [Plavix] 75 mg PO DAILY@0900 Loratadine [Claritin] 10 mg PO DAILY@0900 lamoTRIgine [LaMICtal] 25 mg PO BID@0900,1200 Ferrous Sulfate [Iron (65 MG Elemental)] 325 mg PO BID@0900,1200 Ergocalciferol (Vitamin D2) [Drisdol] 50,000 unit PO TEJEDA Citalopram Hydrobromide [CeleXA] 20 mg PO DAILY@0900 Atorvastatin [Lipitor] 80 mg PO HS Albuterol Inhaler [Ventolin Hfa Inhaler] 2 puff INHALATION RT-Q6H PRN PRN Reason: Shortness Of Breath amLODIPine [Norvasc] 10 mg PO DAILY@1200 Famotidine [Pepcid] 40 mg PO DAILY@0900 hydrALAZINE HCL 25 mg PO BID@0900,1999 Insulin Glargine,Hum.rec.anlog [Basaglar Kwikpen U-100] 22 units SQ HS Allopurinol [Zyloprim] 100 mg PO DAILY@1200 Metoprolol Succinate [Toprol XL] 100 mg PO HS Umeclidinium Mobridge [Incruse Ellipta] 1 puff INHALATION RT-HS Aspirin 81 mg PO DAILY@1200 Insulin Lispro [Admelog] See Protocol SQ AC-TID Ipratropium Nebulized [Atrovent Nebulized 0.2 MG/ML] 0.5 mg INHALATION RT-Q6H PRN PRN Reason: Shortness Of Breath Isosorbide Mononitrate ER [Imdur] 60 mg PO DAILY@1200 Varenicline [Chantix Continuing Pack] 1 mg PO BID@0900,1200 Discontinued Furosemide [Lasix] 40 mg PO BID@0900,1200 Discharge Medication List Clopidogrel Bisulfate [Plavix] 75 mg PO DAILY@0900 01/21/15 [History] Ergocalciferol (Vitamin D2) [Drisdol] 50,000 unit PO TEJEDA 01/21/15 [History] Ferrous Sulfate [Iron (65 MG Elemental)] 325 mg PO BID@0900,1200 01/21/15 [History] Loratadine [Claritin] 10 mg PO DAILY@0900 01/21/15 [History] lamoTRIgine [LaMICtal] 25 mg PO BID@0900,1200 01/21/15 [History] Albuterol Inhaler [Ventolin Hfa Inhaler] 2 puff INHALATION RT-Q6H PRN 06/30/17 [History] Atorvastatin [Lipitor] 80 mg PO HS 06/30/17 [History] Citalopram Hydrobromide [CeleXA] 20 mg PO DAILY@0900 06/30/17 [History] Famotidine [Pepcid] 40 mg PO DAILY@0900 06/18/18 [History] amLODIPine [Norvasc] 10 mg PO DAILY@1200 06/18/18 [History] hydrALAZINE HCL 25 mg PO BID@0900,199907/02/18 [History] Insulin Glargine,Hum.rec.anlog [Basaglar Kwikpen U-100] 22 units SQ HS 07/03/18 [History] Allopurinol [Zyloprim] 100 mg PO DAILY@1200 08/30/18 [History] Metoprolol Succinate [Toprol XL] 100 mg PO HS 10/08/18 [History] Umeclidinium Mobridge [Incruse Ellipta] 1 puff INHALATION RT-HS 10/08/18 [History] Aspirin 81 mg PO DAILY@1200 12/05/18 [History] Insulin Lispro [Admelog] See Protocol SQ AC-TID 05/22/19 [History] Ipratropium Nebulized [Atrovent Nebulized 0.2 MG/ML] 0.5 mg INHALATION RT-Q6H PRN 06/08/19 [History] Isosorbide Mononitrate ER [Imdur] 60 mg PO DAILY@1200 06/08/19 [History] Varenicline [Chantix Continuing Pack] 1 mg PO BID@0900,1200 06/08/19 [History] Clindamycin [Cleocin] 300 mg PO Q6H #16 cap 06/13/19 [Rx] Furosemide [Lasix] 60 mg PO BID #60 tab 06/13/19 [Rx] Follow up Appointment(s)/Referral(s): Mis Montelongo MD [STAFF PHYSICIAN] - 06/21/19 10:40 am (with FIELD REPRESENTATIVE) Eran Bueno MD [Primary Care Provider] - 06/16/19 10:30 am (With ashanti) Patient Instructions/Handouts: Cellulitis (DC) Discharge Disposition: HOME SELF-CARE
--- NOTE | 2019-06-13 15:29 | P.PN ---
Subjective Progress Note Date: 06/12/19 Patient was seen and examined at the bedside on 06/12. She reported improvement in her cellulitis though reported significant lower extremity edema. She denied shortness of breath, or chest discomfort. She also denied fever, or chills. Objective - Vital Signs Vital signs: Vital Signs Temp 98.2 F 06/12/19 13:03 Pulse 75 06/12/19 15:26 Resp 16 06/12/19 13:03 BP 171/75 06/12/19 13:03 Pulse Ox 93 L 06/12/19 15:15 Intake & Output 06/11/19 06/12/19 06/12/19 18:59 06:59 18:59 Intake Total 430 240 Balance 430 240 Intake: Oral 430 240 Other: Voiding Method Toilet Toilet Toilet # Voids 2 1 3 - Exam General: Non-toxic, in no acute distress, appears older than stated age, normal weight HEENT: NC/AT, anicteric sclerae, moist conjunctiva, no lid-lag, PERRLA Cardiovascular: S1/S2 wnl, no murmurs, rubs, or gallops Lungs: Clear to auscultation, normal respiratory effort, no accessory muscle use Abdominal: Soft, non-tender, non-distended, no guarding, rebound, or rigidity Skin: Warm, dry Extremities: 2+ lower extremity pitting edema, contractures Psychiatric: Alert and oriented to person, place and time, appropriate affect Neuro: CN II-XII grossly intact, Strength 5/5 in all 4 extremities, Speech intact, Sensation to light touch grossly intact throughout - Labs CBC & Chem 7: 06/11/19 07:20 06/13/19 07:09 Labs: Abnormal Lab Results - Last 24 Hours (Table) 06/11/19 06/11/19 06/12/19 Range/Units 07:20 20:28 06:44 Sodium 136 L (137-145) mmol/L BUN 53 H (7-17) mg/dL Creatinine 2.05 H (0.52-1.04) mg/dL Glucose 64 L (74-99) mg/dL POC Glucose (mg/dL) 208 H (75-99) mg/dL Hemoglobin A1c 10.1 H (4.0-6.0) % Calcium 8.3 L (8.4-10.2) mg/dL 06/12/19 06/12/19 06/12/19 Range/Units 06:55 11:46 17:11 Sodium (137-145) mmol/L BUN (7-17) mg/dL Creatinine (0.52-1.04) mg/dL Glucose (74-99) mg/dL POC Glucose (mg/dL) 74 L 168 H 145 H (75-99) mg/dL Hemoglobin A1c (4.0-6.0) % Calcium (8.4-10.2) mg/dL Microbiology - Last 24 Hours (Table) 06/08/19 20:19 Blood Culture - Preliminary Blood No Growth after 72 hours Assessment and Plan Plan: Abdominal and RLE cellulitis -C/w Vancomycin -F/u blood cultures Chronic systolic CHF -Lasix increased to 60 mg PO bid -Nephrology recs appreciated Type 2 DM -JOSE MANUEL with FS CKD -Nephrology consulted HTN -C/w home meds COPD, not in acute exacerbation -C/w home meds
--- NOTE | 2019-06-13 20:39 | PN ---
PROGRESS NOTE Patient is seen for followup for CKD and volume overload. The patient's swelling has improved. She is complaining of back pain today. PHYSICAL EXAMINATION: This morning blood pressure was 166/72, heart rate 67 per minute. She is afebrile. Examination of the heart S1, S2. Examination of the lungs, bilateral breath sounds are heard. ABDOMEN: Soft, nontender. Examination of lower extremities shows 1+ edema bilaterally. 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 LABS: Show sodium 135, potassium 4.7, BUN 53, creatinine 2.17. ASSESSMENT: 1. Chronic kidney disease. Renal function currently stable and cared stage IV. 2. Volume overload now improved status post IV Lasix yesterday. 3. Hypertension. 4. Chronic kidney disease mineral bone disorder. PLAN: Patient can be discharged with p.o. Lasix 60 mg b.i.d. and follow up in 1-2 weeks as outpatient. MMODL / IJN: [id number] /
--- NOTE | 2019-06-15 22:18 | CONS ---
CONSULTATION DATE OF SERVICE: 06/12/2019. REASON FOR CONSULT: Renal failure. HISTORY OF PRESENT ILLNESS: Patient is a 48-year-old female who was admitted to the hospital with pain and edema in the lower part of the abdomen associated with chills. The patient is being treated for cellulitis. She is complaining of increased lower extremity edema as recently her diuretics were decreased as outpatient. The patient denies any chest pain, cough, shortness of breath, nausea, vomiting. PAST MEDICAL HISTORY: CKD stage IV, secondary to nephrosclerosis. Renal, renal function fairly stable. Hematocrit, creatinine is at baseline of around 2.0, cardiomyopathy, hypertension, COPD, history of CVA, TIA, type 2 diabetes, hyperlipidemia, valvular heart disease, mitral regurgitation, peripheral vascular disease, femoral stenosis. PAST SURGICAL HISTORY: Bowel resection, tubal ligation, appendectomy, history of colostomy and reversal of colostomy, rotator cuff repair, colonoscopies, cardiac catheterization, femoral- popliteal bypass. SOCIAL HISTORY: Positive for smoking. There is history of marijuana use. No alcohol abuse. MEDICATIONS: Medications prior to admission include Plavix, vitamin D2, iron, Claritin, Lipitor, Celexa, Norvasc, Pepcid, hydralazine, Zyloprim, Toprol, Lasix, aspirin, Imdur, Chantix. ALLERGIES: INCLUDE PENICILLIN, BEE VENOM. REVIEW OF SYSTEMS: As per HPI. Other systems negative. PHYSICAL EXAMINATION: On examination, patient is comfortable, awake, alert, oriented x3. She is not in any acute distress. Blood pressure was 171/75, previous blood pressure 148/73, heart rate 72 per minute, patient is afebrile. Examination of the heart S1, S2. Examination of the lungs, bilateral breath sounds are heard. ABDOMEN: Soft, nontender. Examination of lower extremities shows edema 2+ bilaterally. 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 LABS: Show sodium 136, potassium 4.5, chloride 107, CO2 is 23. BUN 53, creatinine 2.0, hemoglobin was 8.6 g/dL on 06/11/2019. ASSESSMENT: 1. Chronic kidney disease stage IV, secondary to diabetic nephropathy and nephrosclerosis. Renal function at baseline. 2. Volume overload. I will give her a dose of IV Lasix and resume the higher dose of oral diuretics upon discharge. 3. Abdominal cellulitis maintained on antibiotics and improved. 4. History of chronic obstructive pulmonary disease, currently stable. 5. Type 2 diabetes. PLAN: Patient will be given a dose of IV Lasix today and then again in a.m. She can be discharged tomorrow on a higher dose of oral diuretics at home. She is advised to follow up as outpatient in about 1-2 weeks. MMODL / IJN: [id number] /
== END 2019-06-13 14:20 | disposition home or self-care (01) | DRG 603 ==
LOC: EC 15:57 → 4SSUR 19:38 → OBSVTOIN 20:11
PROVIDERS: ADMIT Internal Medicine; ATTEND Internal Medicine
DX: L03.311 Cellulitis of abdominal wall (principal); C92.10 Chronic myeloid leukemia, BCR/ABL-positive, not having achieved remission; I50.22 Chronic systolic (congestive) heart failure; I13.0 Hypertensive heart and chronic kidney disease with heart failure and stage 1 through stage 4 chronic kidney disease, or unspecified chronic kidney disease; N18.4 Chronic kidney disease, stage 4 (severe); I42.9 Cardiomyopathy, unspecified; L03.115 Cellulitis of right lower limb; E83.9 Disorder of mineral metabolism, unspecified; E11.51 Type 2 diabetes mellitus with diabetic peripheral angiopathy without gangrene; E11.22 Type 2 diabetes mellitus with diabetic chronic kidney disease; E78.5 Hyperlipidemia, unspecified; E11.65 Type 2 diabetes mellitus with hyperglycemia; F41.9 Anxiety disorder, unspecified; F32.9 Major depressive disorder, single episode, unspecified; F17.210 Nicotine dependence, cigarettes, uncomplicated; I16.0 Hypertensive urgency; E86.0 Dehydration; J44.9 Chronic obstructive pulmonary disease, unspecified; I34.0 Nonrheumatic mitral (valve) insufficiency; Z71.6 Tobacco abuse counseling; Z71.3 Dietary counseling and surveillance; Z79.02 Long term (current) use of antithrombotics/antiplatelets; Z79.899 Other long term (current) drug therapy; Z79.82 Long term (current) use of aspirin; Z79.4 Long term (current) use of insulin; Z86.73 Personal history of transient ischemic attack (TIA), and cerebral infarction without residual deficits; Z90.49 Acquired absence of other specified parts of digestive tract; Z95.828 Presence of other vascular implants and grafts; Z98.890 Other specified postprocedural states; Z91.030 Bee allergy status; Z87.410 Personal history of cervical dysplasia; Z88.0 Allergy status to penicillin; Z83.3 Family history of diabetes mellitus; Z82.49 Family history of ischemic heart disease and other diseases of the circulatory system; Z80.3 Family history of malignant neoplasm of breast; Z82.3 Family history of stroke
CPT/HCPCS: 36415; 71045; 71046; 74176; 80048; 80053; 80202; 81001; 82150; 82565; 83036; 83605; 83690; 83735; 84075; 84100; 84450; 84460; 85025; 85027; 87040; 94640; 94760; 96374; 96375; 99285

== ENCOUNTER 2019-09-04 16:27 | Emergency (ER) | payer OTHER ==
[2019-09-04] MEDS ORDERED: SODIUM CHLORIDE 0.9% 1,000 ML IV ONE (17:13)
[2019-09-04] MEDS ORDERED: TRIMETHOBENZAMIDE 100 MG/ML 2 ML VIAL IM STA (17:14)
--- NOTE | 2019-09-04 17:18 | ED ---
Altered Mental Status HPI - General Source: patient, EMS Mode of arrival: EMS Limitations: no limitations <Yenni Washington - Last Filed: 09/04/19 20:17> <Jannet Moy - Last Filed: 09/06/19 13:18> - General Chief Complaint: Altered Mental Status Stated Complaint: Dizziness, Nausea Time Seen by Provider: 09/04/19 17:01 - History of Present Illness Initial Comments: 49-year-old female patient with past medical history significant for diabetes mellitus, peripheral vascular disease with history of fem-pop bypass, CHF, COPD, chronic renal failure presented to the emergency department today for evaluation after experiencing a fall. Patient's son heard a thud when he went to look patient was lying on the ground. Fall occurred just prior to arrival. Patient states that she has been weak today and she believes that is why she fell. She is unsure if she hit her head but she is reporting a mild headache. Denies any blurred or double vision. She is nauseated and has vomited at least twice. Patient did receive Zofran in the ambulance but is still reporting nausea. Patient denies any pain to her extremities back or neck. Denies any abdominal pain. Denies chest pain, shortness of breath. States she has been feeling nauseated and dizzy since last evening. She does have diabetes and is unsure she took her insulin today. Denies any hematuria, dysuria, urinary frequency, urinary urgency. States she has been chilled and feverish. Patient denies any recent rash, numbness, tingling, or any other complaints. (Yenni Washington) - Related Data Home Medications Medication Instructions Recorded Confirmed Clopidogrel Bisulfate [Plavix] 75 mg PO DAILY 01/21/15 09/04/19 Ergocalciferol (Vitamin D2) 50,000 unit PO TEJEDA 01/21/15 09/04/19 [Drisdol] Ferrous Sulfate [Iron (65 MG 325 mg PO BID 01/21/15 09/04/19 Elemental)] Loratadine [Claritin] 10 mg PO DAILY 01/21/15 09/04/19 lamoTRIgine [LaMICtal] 25 mg PO BID 01/21/15 09/04/19 Atorvastatin [Lipitor] 80 mg PO HS 06/30/17 09/04/19 Citalopram Hydrobromide [CeleXA] 20 mg PO DAILY 06/30/17 09/04/19 Famotidine [Pepcid] 40 mg PO DAILY 06/18/18 09/04/19 amLODIPine [Norvasc] 10 mg PO DAILY 06/18/18 09/04/19 hydrALAZINE HCL 25 mg PO BID 07/02/18 09/04/19 Insulin Glargine,Hum.rec.anlog 22 units SQ HS 07/03/18 09/04/19 [Basaglar Kwikpen U-100] Allopurinol [Zyloprim] 100 mg PO DAILY 08/30/18 09/04/19 Metoprolol Succinate [Toprol XL] 100 mg PO DAILY 10/08/18 09/04/19 Umeclidinium Latexo [Incruse 1 puff INHALATION RT-HS 10/08/18 09/04/19 Ellipta] Aspirin 81 mg PO DAILY 12/05/18 09/04/19 Insulin Lispro [Admelog] See Protocol SQ AC-TID 05/22/19 09/04/19 Isosorbide Mononitrate ER [Imdur] 60 mg PO DAILY 06/08/19 09/04/19 Albuterol Sulfate [Ventolin HFA] 2 puff INHALATION RT-Q4H PRN 09/04/19 09/04/19 Ascorbic Acid [Vitamin C] 500 mg PO DAILY 09/04/19 09/04/19 Calcium Acetate [Phoslo] 667 mg PO AC-TID 09/04/19 09/04/19 Furosemide [Lasix] 20 mg PO BID 09/04/19 09/04/19 Furosemide [Lasix] 40 mg PO BID 09/04/19 09/04/19 Imiquimod [Aldara] 1 applic TOPICAL MOWEFR 09/04/19 09/04/19 Ipratropium-Albuterol Nebulize 3 ml INHALATION RT-QID 09/04/19 09/04/19 [Duoneb 0.5 mg-3 mg/3 ml Soln] SILVER sulfADIAZINE Cream 1 applic TOPICAL BID PRN 09/04/19 09/04/19 [Silvadene 1% Cream] glipiZIDE [Glucotrol] 10 mg PO AC-BID 09/04/19 09/04/19 Allergies Allergy/AdvReac Type Severity Reaction Status Date / Time bee venom protein (honey bee) Allergy Anaphylaxis Verified 09/04/19 16:44 Penicillins Allergy Rash/Hives Verified 09/04/19 16:44 Review of Systems ROS Other: All systems not noted in ROS Statement are negative. <Yenni Washington - Last Filed: 09/04/19 20:17> ROS Other: All systems not noted in ROS Statement are negative. <Jannet Moy - Last Filed: 09/06/19 13:18> ROS Statement: Those systems with pertinent positive or pertinent negative responses have been documented in the HPI. 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 History of Any Multi-Drug Resistant Organisms: None Reported Past Surgical History: Appendectomy, Bowel Resection, Orthopedic Surgery, Tubal Ligation Additional Past Surgical History / Comment(s): Hx of colostomy and reversal, rot ator cuff repair on Left, hx of fem/pop bypass. Colonoscopy 2012, cardiac catheterization Past Anesthesia/Blood Transfusion Reactions: No Reported Reaction Past Psychological History: Anxiety, Depression Smoking Status: Current every day smoker Past Alcohol Use History: None Reported Past Drug Use History: Marijuana - Past Family History Mother Family Medical History: Congestive Heart Failure (CHF), Diabetes Mellitus Brother(s) Additional Family Medical History / Comment(s): CABG Sister(s) Family Medical History: CVA/TIA Additional Family Medical History / Comment(s): Maternal aunt had breast cancer. <Yenni Washington - Last Filed: 09/04/19 20:17> General Exam Limitations: no limitations General appearance: alert, in no apparent distress, other (Physical well- developed, well-nourished adult female patient in no acute distress. Vital signs upon presentation are temperature 97.5F, pulse 83, respirations 16, blood pressure 127/79, pulse ox 97% on room air.) Eye exam: Present: normal appearance, PERRL, EOMI, other (Pupils are sluggish). Absent: scleral icterus, conjunctival injection, periorbital swelling ENT exam: Present: normal exam, normal oropharynx, mucous membranes moist Neck exam: Present: normal inspection, full ROM, other (Normal neck). Absent: tenderness, meningismus, lymphadenopathy Respiratory exam: Present: normal lung sounds bilaterally. Absent: respiratory distress, wheezes, rales, rhonchi, stridor Cardiovascular Exam: Present: regular rate, normal rhythm, normal heart sounds. Absent: systolic murmur, diastolic murmur, rubs, gallop, clicks GI/Abdominal exam: Present: soft, normal bowel sounds. Absent: distended, tenderness, guarding, rebound, rigid Extremities exam: Present: full ROM, normal capillary refill, other (There is a circular area of ecchymosis and swelling to the left lateral thigh. Skin is otherwise pink, warm, dry. Cap refills less than 3 seconds. Pedal and posttibial pulses are 2+ and equal bilaterally.). Absent: normal inspection, tenderness, pedal edema, joint swelling, calf tenderness Back exam: Present: normal inspection, other (Nontender, no step-off, no defor mity to firm midline palpation of the thoracic and lumbar vertebrae. Full range of motion without pain or limitation.). Absent: vertebral tenderness Neurological exam: Present: alert, CN II-XII intact. Absent: oriented X3 (Oriented 2, patient believes it is 1986.) Psychiatric exam: Present: normal affect, normal mood Skin exam: Present: warm, dry, intact, normal color. Absent: rash <Yenni Washington M - Last Filed: 09/04/19 20:17> Course <Yenni Washington M - Last Filed: 09/04/19 20:17> Vital Signs 09/04/19 09/04/19 09/04/19 16:30 16:40 16:50 Temperature 97.5 F L Pulse Rate 84 87 Respiratory 16 17 Rate Blood Pressure 127/79 127/79 O2 Sat by Pulse 96 94 L 96 Oximetry 09/04/19 09/04/19 09/04/19 17:00 17:06 17:10 Temperature Pulse Rate 85 84 85 Respiratory 16 16 16 Rate Blood Pressure 127/79 121/77 121/77 O2 Sat by Pulse 96 95 96 Oximetry 09/04/19 09/04/19 09/04/19 17:20 17:30 17:38 Temperature Pulse Rate 86 85 78 Respiratory 18 16 16 Rate Blood Pressure 121/77 121/77 106/90 O2 Sat by Pulse 95 98 99 Oximetry 09/04/19 09/04/19 09/04/19 17:40 17:50 18:00 Temperature Pulse Rate 87 87 88 Respiratory 14 18 17 Rate Blood Pressure 106/90 106/90 106/90 O2 Sat by Pulse 98 Oximetry 09/04/19 09/04/19 09/04/19 18:10 18:19 18:20 Temperature Pulse Rate 78 Respiratory 16 Rate Blood Pressure 118/99 118/99 118/99 O2 Sat by Pulse 99 Oximetry 09/04/19 09/04/19 09/04/19 18:30 18:40 18:45 Temperature Pulse Rate 92 90 91 Respiratory 20 16 16 Rate Blood Pressure 118/99 104/72 97/63 O2 Sat by Pulse 99 Oximetry 09/04/19 09/04/19 09/04/19 18:50 19:00 19:10 Temperature Pulse Rate 91 93 92 Respiratory 17 17 20 Rate Blood Pressure 97/63 97/63 99/64 O2 Sat by Pulse 99 Oximetry 09/04/19 09/04/19 09/04/19 19:20 19:30 19:40 Temperature Pulse Rate 93 93 Respiratory 22 23 Rate Blood Pressure 85/61 85/61 107/89 O2 Sat by Pulse Oximetry 09/04/19 09/04/19 09/04/19 19:50 20:00 20:10 Temperature Pulse Rate Respiratory Rate Blood Pressure 96/74 96/74 100/75 O2 Sat by Pulse Oximetry 09/04/19 09/04/19 09/04/19 20:20 20:30 20:40 Temperature Pulse Rate 92 Respiratory Rate Blood Pressure 99/71 99/71 116/76 O2 Sat by Pulse Oximetry 09/04/19 09/04/19 09/04/19 20:50 21:00 21:08 Temperature 98.6 F Pulse Rate 92 92 Respiratory 16 Rate Blood Pressure 103/77 103/77 117/78 O2 Sat by Pulse 94 L Oximetry 09/04/19 09/04/19 21:10 21:20 Temperature Pulse Rate 92 92 Respiratory 21 21 Rate Blood Pressure 117/78 119/77 O2 Sat by Pulse 94 L Oximetry - Reevaluation(s) Reevaluation #1: 09/04/19 18:41 CT images reviewed, and intraventricular hemorrhage noted. Neurointerventionalist Dr. Barragan has been paged. (Yenni Washington) Reevaluation #2: 09/04/19 18:58 Dr. Barragan recommended CTA head and neck. Unfortunately patient does have renal failure and GFR is 28. Called back and he recommends transfer to [facility] for STAT MRI/MRA. Transfer initiated. (Yenni Washington) Reevaluation #3: 09/04/19 19:10 Dr. Barragan called back, he was able to review the images, he now recommends transfer to [facility]. Awaiting call back from his [employer]. (Yenni Washington) Medical Decision Making - Lab Data Result diagrams: 09/04/19 17:08 09/04/19 17:08 - EKG Data -: EKG Interpreted by Me - Radiology Data Radiology results: report reviewed, image reviewed <Yenni Washington - Last Filed: 09/04/19 20:17> - Lab Data Result diagrams: 09/04/19 17:08 09/04/19 17:08 <Jannet Moy - Last Filed: 09/06/19 13:18> - Medical Decision Making 49-year-old female patient with multiple medical problems presented to the emergency department today for evaluation of altered mental status after experiencing a fall at home. Patient is currently taking Plavix. Physical examination was relatively unremarkable. She was neurologically intact other than the oriented 2 only. Patient believes it is 1987 at [place] is the president. She does have recent and remote memory intact. Strength is equal to the upper and lower extremities. Pupils are somewhat sluggish. Vital signs are stable, she did have a low blood pressure in the 80s over 70s. CT brain was obtained and did show evidence for intraventricular hemorrhage of moderate size and uncertain etiology. I did speak to the neuro interventional list to recommend transfer to [facility] for stat MRI/MRA. I discussed plan with the patient and her son, they are agreeable. (Yenni Washington) I was available for consultation in the emergency department. The history and physical exam were done by the midlevel provider. I was consulted for this patients care. I reviewed the case with the midlevel provider and based on their presentation of the patient, I agree with the assessment, medical decision making and plan of care as documented. Patient evaluated by myself. Patient arrives altered however is protecting airway and responds to commands. Patient sent for CT of brain which demonstrated IVH. Neurointensivist contacted and facilitated transfer to [facility]. Patient sent priority one, lights and sirens in critical, yet stable condition. Chart was dictated using [employer] dictation software. Attempts were made to correct any dictation errors however some typographical errors may persist. Patient was seen during a national state of emergency due to the Covid-19 pandemic. (Jannet Moy) - Lab Data Lab Results 09/04/19 09/04/19 09/04/19 Range/Units 17:08 17:08 17:08 WBC 13.7 H (3.8-10.6) k/uL RBC 3.33 L (3.80-5.40) m/uL Hgb 11.0 L (11.4-16.0) gm/dL Hct 33.6 L (34.0-46.0) % MCV 101.0 H (80.0-100.0) fL MCH 33.0 (25.0-35.0) pg MCHC 32.7 (31.0-37.0) g/dL RDW 16.2 H (11.5-15.5) % Plt Count 333 (150-450) k/uL Neutrophils % 82 % Lymphocytes % 8 % Monocytes % 5 % Eosinophils % 4 % Basophils % 1 % Neutrophils # 11.2 H (1.3-7.7) k/uL Lymphocytes # 1.0 (1.0-4.8) k/uL Monocytes # 0.7 (0-1.0) k/uL Eosinophils # 0.6 (0-0.7) k/uL Basophils # 0.1 (0-0.2) k/uL Anisocytosis Slight Macrocytosis Slight PT 10.4 (9.0-12.0) sec INR 1.0 (<1.2) APTT 21.3 L (22.0-30.0) sec Sodium 139 (137-145) mmol/L Potassium 4.2 (3.5-5.1) mmol/L Chloride 107 (98-107) mmol/L Carbon Dioxide 21 L (22-30) mmol/L Anion Gap 11 mmol/L BUN 50 H (7-17) mg/dL Creatinine 2.30 H (0.52-1.04) mg/dL Est GFR (CKD-EPI)AfAm 28 (>60 ml/min/1.73 sqM) Est GFR (CKD-EPI)NonAf 24 (>60 ml/min/1.73 sqM) Glucose 310 H (74-99) mg/dL POC Glucose (mg/dL) (75-99) mg/dL POC Glu [employer] ID Calcium 9.8 (8.4-10.2) mg/dL Total Bilirubin 0.6 (0.2-1.3) mg/dL AST 20 (14-36) U/L ALT 19 (4-34) U/L Alkaline Phosphatase 141 H (38-126) U/L Troponin I (0.000-0.034) ng/mL Total Protein 6.7 (6.3-8.2) g/dL Albumin 4.3 (3.5-5.0) g/dL Urine Color Urine Appearance (Clear) Urine pH (5.0-8.0) Ur Specific Vancleve (1.001-1.035) Urine Protein (Negative) Urine Glucose (UA) (Negative) Urine Ketones (Negative) Urine Blood (Negative) Urine Nitrite (Negative) Urine Bilirubin (Negative) Urine Urobilinogen (<2.0) mg/dL Ur Leukocyte Esterase (Negative) Urine RBC (0-5) /hpf Urine WBC (0-5) /hpf Urine Bacteria (None) /hpf Hyaline Casts (0-2) /lpf Urine Yeast (Budding) (None) /hpf Urine Opiates Screen (NotDetected) Ur Oxycodone Screen (NotDetected) Urine Methadone Screen (NotDetected) Ur Propoxyphene Screen (NotDetected) Ur Barbiturates Screen (NotDetected) U Tricyclic Antidepress (NotDetected) Ur Phencyclidine Scrn (NotDetected) Ur Amphetamines Screen (NotDetected) U Methamphetamines Scrn (NotDetected) U Benzodiazepines Scrn (NotDetected) Urine Cocaine Screen (NotDetected) U Marijuana (THC) Screen (NotDetected) Serum Alcohol <10 mg/dL Coronavirus (PCR) (Not Detectd) 09/04/19 09/04/19 09/04/19 Range/Units 17:08 17:21 18:40 WBC (3.8-10.6) k/uL RBC (3.80-5.40) m/uL Hgb (11.4-16.0) gm/dL Hct (34.0-46.0) % MCV (80.0-100.0) fL MCH (25.0-35.0) pg MCHC (31.0-37.0) g/dL RDW (11.5-15.5) % Plt Count (150-450) k/uL Neutrophils % % Lymphocytes % % Monocytes % % Eosinophils % % Basophils % % Neutrophils # (1.3-7.7) k/uL Lymphocytes # (1.0-4.8) k/uL Monocytes # (0-1.0) k/uL Eosinophils # (0-0.7) k/uL Basophils # (0-0.2) k/uL Anisocytosis Macrocytosis PT (9.0-12.0) sec INR (<1.2) APTT (22.0-30.0) sec Sodium (137-145) mmol/L Potassium (3.5-5.1) mmol/L Chloride (98-107) mmol/L Carbon Dioxide (22-30) mmol/L Anion Gap mmol/L BUN (7-17) mg/dL Creatinine (0.52-1.04) mg/dL Est GFR (CKD-EPI)AfAm (>60 ml/min/1.73 sqM) Est GFR (CKD-EPI)NonAf (>60 ml/min/1.73 sqM) Glucose (74-99) mg/dL POC Glucose (mg/dL) 334 H (75-99) mg/dL POC Glu [employer] ID Nic Malin Calcium (8.4-10.2) mg/dL Total Bilirubin (0.2-1.3) mg/dL AST (14-36) U/L ALT (4-34) U/L Alkaline Phosphatase (38-126) U/L Troponin I <0.012 (0.000-0.034) ng/mL Total Protein (6.3-8.2) g/dL Albumin (3.5-5.0) g/dL Urine Color Light Yellow Urine Appearance Clear (Clear) Urine pH 6.0 (5.0-8.0) Ur Specific Vancleve 1.007 (1.001-1.035) Urine Protein 2+ H (Negative) Urine Glucose (UA) 2+ H (Negative) Urine Ketones Negative (Negative) Urine Blood Small H (Negative) Urine Nitrite Negative (Negative) Urine Bilirubin Negative (Negative) Urine Urobilinogen <2.0 (<2.0) mg/dL Ur Leukocyte Esterase Negative (Negative) Urine RBC 1 (0-5) /hpf Urine WBC 1 (0-5) /hpf Urine Bacteria Rare H (None) /hpf Hyaline Casts 1 (0-2) /lpf Urine Yeast (Budding) Occasional H (None) /hpf Urine Opiates Screen Not Detected (NotDetected) Ur Oxycodone Screen Not Detected (NotDetected) Urine Methadone Screen Not Detected (NotDetected) Ur Propoxyphene Screen Not Detected (NotDetected) Ur Barbiturates Screen Not Detected (NotDetected) U Tricyclic Antidepress Not Detected (NotDetected) Ur Phencyclidine Scrn Not Detected (NotDetected) Ur Amphetamines Screen Not Detected (NotDetected) U Methamphetamines Scrn Not Detected (NotDetected) U Benzodiazepines Scrn Not Detected (NotDetected) Urine Cocaine Screen Not Detected (NotDetected) U Marijuana (THC) Screen Detected H (NotDetected) Serum Alcohol mg/dL Coronavirus (PCR) (Not Detectd) 09/04/19 09/04/19 Range/Units 20:18 Unknown WBC (3.8-10.6) k/uL RBC (3.80-5.40) m/uL Hgb (11.4-16.0) gm/dL Hct (34.0-46.0) % MCV (80.0-100.0) fL MCH (25.0-35.0) pg MCHC (31.0-37.0) g/dL RDW (11.5-15.5) % Plt Count (150-450) k/uL Neutrophils % % Lymphocytes % % Monocytes % % Eosinophils % % Basophils % % Neutrophils # (1.3-7.7) k/uL Lymphocytes # (1.0-4.8) k/uL Monocytes # (0-1.0) k/uL Eosinophils # (0-0.7) k/uL Basophils # (0-0.2) k/uL Anisocytosis Macrocytosis PT (9.0-12.0) sec INR (<1.2) APTT (22.0-30.0) sec Sodium (137-145) mmol/L Potassium (3.5-5.1) mmol/L Chloride (98-107) mmol/L Carbon Dioxide (22-30) mmol/L Anion Gap mmol/L BUN (7-17) mg/dL Creatinine (0.52-1.04) mg/dL Est GFR (CKD-EPI)AfAm (>60 ml/min/1.73 sqM) Est GFR (CKD-EPI)NonAf (>60 ml/min/1.73 sqM) Glucose (74-99) mg/dL POC Glucose (mg/dL) 356 H (75-99) mg/dL POC Glu [employer] ID Kika Amaya Calcium (8.4-10.2) mg/dL Total Bilirubin (0.2-1.3) mg/dL AST (14-36) U/L ALT (4-34) U/L Alkaline Phosphatase (38-126) U/L Troponin I (0.000-0.034) ng/mL Total Protein (6.3-8.2) g/dL Albumin (3.5-5.0) g/dL Urine Color Urine Appearance (Clear) Urine pH (5.0-8.0) Ur Specific Vancleve (1.001-1.035) Urine Protein (Negative) Urine Glucose (UA) (Negative) Urine Ketones (Negative) Urine Blood (Negative) Urine Nitrite (Negative) Urine Bilirubin (Negative) Urine Urobilinogen (<2.0) mg/dL Ur Leukocyte Esterase (Negative) Urine RBC (0-5) /hpf Urine WBC (0-5) /hpf Urine Bacteria (None) /hpf Hyaline Casts (0-2) /lpf Urine Yeast (Budding) (None) /hpf Urine Opiates Screen (NotDetected) Ur Oxycodone Screen (NotDetected) Urine Methadone Screen (NotDetected) Ur Propoxyphene Screen (NotDetected) Ur Barbiturates Screen (NotDetected) U Tricyclic Antidepress (NotDetected) Ur Phencyclidine Scrn (NotDetected) Ur Amphetamines Screen (NotDetected) U Methamphetamines Scrn (NotDetected) U Benzodiazepines Scrn (NotDetected) Urine Cocaine Screen (NotDetected) U Marijuana (THC) Screen (NotDetected) Serum Alcohol mg/dL Coronavirus (PCR) Not Detected (Not Detectd) - EKG Data EKG Comments: EKG obtained at 1700 to sinus rhythm with a first-degree AV block, prolonged QT interval, ventricular rate 85, MI interval 210, QRS duration 92, QT 418, QTC 497. No evidence of ST elevation or depression. (Yenni Washington) - Radiology Data CT brain without contrast was obtained. Report was reviewed in its entirety. Impression by Dr. Black shows moderate intraventricular hemorrhage of uncertain etiology. No evidence for intraparenchymal hemorrhage or subarachnoid hemorrhage at this time. One view x-ray of the chest is obtained. Report was reviewed in its entirety. Impression by Dr. Black shows persistent cardiomegaly with pulmonary venous congestion which has improved. Interstitial prominence of uncertain etiology. Apparent resolution of left-sided pleural effusion. (Yenni Washington) Critical Care Time Critical Care Time: Yes <Jannet Moy - Last Filed: 09/06/19 13:18> Critical Care Time: 46 minutes (Jannet Moy) Disposition - Out of Hospital Transfer - Req. Specs Out of Hospital Transfer - Requested Specifics: Neurological ICU ([facility]) <Yenni Washington - Last Filed: 09/04/19 20:17> <Jannet Moy - Last Filed: 09/06/19 13:18> Clinical Impression: Intraventricular hemorrhage Disposition: OTHER INSTITUTION NOT DEFINED Condition: Serious Referrals: Eran Bueno MD [Primary Care Provider] - 1-2 days
[2019-09-04 17:23] LABS: Glucose,Whole Blood 334 mg/dL (75-99)
[2019-09-04 17:26] LABS: Anisocytosis Slight; Basophils # (A) 0.1 k/uL (0-0.2); Basophils % (A) 1 %; Eosinophils # (A) 0.6 k/uL (0-0.7); Eosinophils % (A) 4 %; HCT 33.6 % (34.0-46.0); Lymphocytes % (A) 8 %; MCHC 32.7 g/dL (31.0-37.0); Macrocytosis Slight; Monocytes # (A) 0.7 k/uL (0-1.0); Monocytes % (A) 5 %; Neutrophils # (A) 11.2 k/uL (1.3-7.7); Neutrophils % (A) 82 %; Platelet Count 333 k/uL (150-450); RBC 3.33 m/uL (3.80-5.40); RDW 16.2 % (11.5-15.5); WBC 13.7 k/uL (3.8-10.6)
[2019-09-04 17:36] LABS: ALT 19 U/L (4-34); AST 20 U/L (14-36); African American GFR (CKD) 28 (>60 ml/min/1.73 sqM); Albumin 4.3 g/dL (3.5-5.0); Alcohol <10 mg/dL; Alkaline Phosphatase 141 U/L (38-126); Anion Gap 11 mmol/L; Blood Urea Nitrogen 50 mg/dL (7-17); Calcium 9.8 mg/dL (8.4-10.2); Carbon Dioxide 21 mmol/L (22-30); Chloride 107 mmol/L (98-107); Glucose 310 mg/dL (74-99); Non-African American GFR(CKD) 24 (>60 ml/min/1.73 sqM); Potassium 4.2 mmol/L (3.5-5.1); Sodium 139 mmol/L (137-145); Total Bilirubin 0.6 mg/dL (0.2-1.3); Total Protein 6.7 g/dL (6.3-8.2)
[2019-09-04 17:45] LABS: Prothrombin Time 10.4 sec (9.0-12.0)
[2019-09-04 17:50] LABS: Partial Thromboplastin Time 21.3 sec (22.0-30.0)
--- NOTE | 2019-09-04 18:43 | CT ---
EXAMINATION TYPE: CT brain wo con DATE OF EXAM: 09/04/2019 COMPARISON: None HISTORY: Headache and weakness. CT DLP: 1099.[address] of the brain was performed. There is hemorrhage noted within the bilateral lateral ventricles right greater than left extending i nto the third and fourth ventricles. The ventricles, basal cisterns and sulci overlying the cerebral convexities demonstrate mild enlargem ent. No mass effects are seen.No midline shift. Osseous calvarium is intact. If symptoms persist consider MRI. IMPRESSION: 1. Moderate intraventricular hemorrhage of uncertain etiology. No evidence for intraparenchymal hemor rhage or subarachnoid hemorrhage at this time.
--- NOTE | 2019-09-04 18:46 | XR ---
EXAMINATION TYPE: XR chest 1V portable DATE OF EXAM: 09/04/2019 HISTORY: Shortness of breath. COMPARISON: 06/11/2019 TECHNIQUE: Single view of the chest is submitted. FINDINGS: Demonstrated are scattered senescent parenchymal change. There is no evidence for focal infiltrate. Persistent cardiomegaly with pulmonary venous congestion which has improved. Interstitial prominence of uncertain etiology. Apparent resolution left-sided pleural effusion. Hilar and mediastinal structures are within normal limits. Degenerative changes are seen of the dorsal spine. IMPRESSION: 1. Persistent cardiomegaly with pulmonary venous congestion which has improved. Interstitial promine nce of uncertain etiology. Apparent resolution left-sided pleural effusion.
[2019-09-04] MEDS ORDERED: INSULIN ASPART (NovoLOG) 100 UNIT/ML VIAL SQ STA (18:50)
[2019-09-04 18:51] LABS: Appearance,Urine Clear (Clear); Bacteria,Urine Rare /hpf; Bilirubin,Urine Negative (Negative); Blood,Urine Small (Negative); Budding Yeast,Urine Occasional /hpf; Color,Urine Light Yellow; Glucose,Urine (UA) 2+ (Negative); Hyaline Casts,Urine 1 /lpf (0-2); Ketones,Urine Negative (Negative); Leukocyte Esterase,Urine Negative (Negative); Nitrite,Urine Negative (Negative); Protein,Urine 2+ (Negative); RBC,Urine 1 /hpf (0-5); Specific Gravity,Urine 1.007 (1.001-1.035); Urobilinogen,Urine <2.0 mg/dL (<2.0); WBC,Urine 1 /hpf (0-5)
[2019-09-04 19:02] LABS: Amphetamine Screen,Urine Not Detected (NotDetected); Barbiturate Screen,Urine Not Detected (NotDetected); Benzodiazepines Screen,Urine Not Detected (NotDetected); Cocaine Screen,Urine Not Detected (NotDetected); Methadone Screen, Urine Not Detected (NotDetected); Opiate Screen,Urine Not Detected (NotDetected); Oxycodone Screen, Urine Not Detected (NotDetected); Phencyclidine Screen,Urine Not Detected (NotDetected); Tricyclic Antidepressant,Urine Not Detected (NotDetected); Urn Cannabinoid Scrn Detected (NotDetected)
[2019-09-04 20:20] LABS: Glucose,Whole Blood 356 mg/dL (75-99)
[2019-09-04 21:13] VITALS: PULSE 92; TEMP 98.6
[2019-09-04 21:25] VITALS: BP 119/77; RESP 21
== END 2019-09-04 21:38 | disposition other institution (70) ==
LOC: SUPCPDRO 16:27 → EC 16:27
DX: I61.5 Nontraumatic intracerebral hemorrhage, intraventricular (principal); I11.0 Hypertensive heart disease with heart failure; I50.9 Heart failure, unspecified; E78.5 Hyperlipidemia, unspecified; J44.9 Chronic obstructive pulmonary disease, unspecified; E11.51 Type 2 diabetes mellitus with diabetic peripheral angiopathy without gangrene; F41.9 Anxiety disorder, unspecified; F32.9 Major depressive disorder, single episode, unspecified; F17.200 Nicotine dependence, unspecified, uncomplicated; Z79.02 Long term (current) use of antithrombotics/antiplatelets; Z79.4 Long term (current) use of insulin; Z79.82 Long term (current) use of aspirin; Z79.899 Other long term (current) drug therapy; Z79.51 Long term (current) use of inhaled steroids; Z88.0 Allergy status to penicillin; Z91.030 Bee allergy status; Z86.73 Personal history of transient ischemic attack (TIA), and cerebral infarction without residual deficits
CPT/HCPCS: 36415; 93005; 80053; 84484; 85025; 85610; 85730; 81001; 80306; 87635; 71045; 70450; 99285; 96360; 96361 ×2; 96372; G0480; J3250; 80320

== ENCOUNTER 2020-04-11 10:01 | Emergency (ER) | payer OTHER ==
[2020-04-11 10:08] VITALS: RESP 18
[2020-04-11] MEDS ORDERED: SODIUM CHLORIDE 0.9% 1,000 ML IV STA (10:26)
[2020-04-11] MEDS ORDERED: MORPHINE SULFATE 4 MG/ML SYRINGE IVP STA (10:26)
[2020-04-11] MEDS ORDERED: ONDANSETRON 4 MG/2 ML VIAL IVP STA (10:26)
[2020-04-11] MEDS ORDERED: SODIUM CHLORIDE 0.9% 500 ML 500 ML IV STA (10:35)
--- NOTE | 2020-04-11 10:37 | ED ---
General Adult HPI - General Chief complaint: Back Pain/Injury Stated complaint: Hip pain, stage 4 kidney disease Time Seen by Provider: 04/11/20 10:10 Source: patient, RN notes reviewed Mode of arrival: ambulatory Limitations: no limitations - History of Present Illness Initial comments: 29-year-old female with a past medical history of CHF, COPD, CVA, diabetes, hyperlipidemia, hypertension, stage IV renal disease presents to the emergency room for a chief complaint of right-sided low back pain. Patient reports that this started 3 days ago. States it is a sharp pain. States it is also in her buttock. Patient is concerned that this could be related to her kidney as she has stage IV renal disease. Patient states that twisting and bending do make this worse. Denies walking exacerbating the pain. Denies nausea or vomiting. Denies any abdominal pain. States that she presses on her back it seems to help.Patient has no other complaints at this time including shortness of breath, chest pain, abdominal pain, nausea or vomiting, headache, or visual changes. - Related Data Home Medications Medication Instructions Recorded Confirmed Ergocalciferol (Vitamin D2) 50,000 unit PO Q14D 01/21/15 04/11/20 [Drisdol] Ferrous Sulfate [Iron (65 MG 325 mg PO BID 01/21/15 04/11/20 Elemental)] Loratadine [Claritin] 10 mg PO DAILY 01/21/15 04/11/20 lamoTRIgine [LaMICtal] 25 mg PO BID 01/21/15 04/11/20 Atorvastatin [Lipitor] 80 mg PO HS 06/30/17 04/11/20 Citalopram Hydrobromide [CeleXA] 20 mg PO DAILY 06/30/17 04/11/20 amLODIPine [Norvasc] 10 mg PO DAILY 06/18/18 04/11/20 Insulin Glargine,Hum.rec.anlog 22 units SQ HS 07/03/18 04/11/20 [Basaglar Kwikpen U-100] allopurinoL [Zyloprim] 100 mg PO DAILY 08/30/18 04/11/20 Umeclidinium [place] [Incruse 1 puff INHALATION RT-HS 10/08/18 04/11/20 Ellipta] Insulin Lispro [Admelog] See Protocol SQ AC-TID 05/22/19 04/11/20 Furosemide [Lasix] 20 mg PO BID 09/04/19 04/11/20 Furosemide [Lasix] 40 mg PO BID 09/04/19 04/11/20 Carvedilol [Coreg] 6.25 mg PO BID 04/11/20 04/11/20 Isosorbide Mononitrate ER [Imdur] 30 mg PO DAILY 04/11/20 04/11/20 ondansetron HCL [Zofran] 8 mg PO Q8HR PRN 04/11/20 04/11/20 traMADol HCl [Ultram] 50 mg PO Q8H PRN 04/11/20 04/11/20 Previous Rx's Medication Instructions Recorded Nitrofurantoin Monohyd/M-Cryst 100 mg PO Q12HR 7 Days #14 cap 04/11/20 [Macrobid] Allergies Allergy/AdvReac Type Severity Reaction Status Date / Time bee venom protein (honey bee) Allergy Anaphylaxis Verified 04/11/20 10:47 Penicillins Allergy Rash/Hives Verified 04/11/20 10:47 Review of Systems ROS Statement: Those systems with pertinent positive or pertinent negative responses have been documented in the HPI. ROS Other: All systems not noted in ROS Statement are negative. 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 History of Any Multi-Drug Resistant Organisms: None Reported Past Surgical History: Appendectomy, Bowel Resection, Orthopedic Surgery, Tubal Ligation Additional Past Surgical History / Comment(s): Hx of colostomy and reversal, rotator cuff repair on Left, hx of fem/pop bypass. Colonoscopy 2012, cardiac catheterization Past Anesthesia/Blood Transfusion Reactions: No Reported Reaction Past Psychological History: Anxiety, Depression Smoking Status: Current every day smoker Past Alcohol Use History: None Reported Past Drug Use History: Marijuana - Past Family History Mother Family Medical History: Congestive Heart Failure (CHF), Diabetes Mellitus Brother(s) Additional Family Medical History / Comment(s): CABG Sister(s) Family Medical History: CVA/TIA Additional Family Medical History / Comment(s): Maternal aunt had breast cancer. General Exam Limitations: no limitations General appearance: alert, in no apparent distress Head exam: Present: atraumatic, normocephalic, normal inspection Eye exam: Present: normal appearance, PERRL, EOMI. Absent: scleral icterus, conjunctival injection, periorbital swelling ENT exam: Present: normal exam, mucous membranes moist Neck exam: Present: normal inspection, full ROM. Absent: tenderness, meningismus, lymphadenopathy Respiratory exam: Present: normal lung sounds bilaterally. Absent: respiratory distress, wheezes, rales, rhonchi, stridor Cardiovascular Exam: Present: regular rate, normal rhythm, normal heart sounds. Absent: systolic murmur, diastolic murmur, rubs, gallop, clicks GI/Abdominal exam: Present: soft, normal bowel sounds. Absent: distended, tenderness, guarding, rebound, rigid Back exam: Present: paraspinal tenderness (right sided lower back tenderness near and inferior to SI joint extending to sciatic notch). Absent: CVA tenderness (R) Course Vital Signs 04/11/20 10:03 Temperature 97.6 F Pulse Rate 71 Respiratory 18 Rate Blood Pressure 180/84 O2 Sat by Pulse 100 Oximetry Medical Decision Making - Medical Decision Making Vitals are stable. Patient is hypertensive which she does have a history of. Likely exacerbated by pain. CBC unremarkable. CMP shows chronic kidney disease which is patient's baseline. Patient does have history of diabetes with a glucose of 192 nonfasting. Urinalysis shows possible evidence of urinary tract infection. I do not think this pain is related as it is reproducible and over the SI joint however patient will be treated. CT abdomen and pelvis was negative for acute process. I discussed that this is likely musculoskeletal in nature and to continue taking Tylenol and follow-up with her doctor. She'll return here for any worsening symptoms. - Lab Data Result diagrams: 04/11/20 10:55 04/11/20 10:55 Lab Results 04/11/20 04/11/20 04/11/20 Range/Units 10:55 10:55 10:55 WBC 10.7 H (3.8-10.6) k/uL RBC 4.55 (3.80-5.40) m/uL Hgb 15.3 (11.4-16.0) gm/dL Hct 44.8 (34.0-46.0) % MCV 98.5 (80.0-100.0) fL MCH 33.6 (25.0-35.0) pg MCHC 34.1 (31.0-37.0) g/dL RDW 15.3 (11.5-15.5) % Plt Count 223 (150-450) k/uL MPV 8.8 Neutrophils % 57 % Lymphocytes % 25 % Monocytes % 7 % Eosinophils % 6 % Basophils % 3 % Neutrophils # 6.1 (1.3-7.7) k/uL Lymphocytes # 2.7 (1.0-4.8) k/uL Monocytes # 0.7 (0-1.0) k/uL Eosinophils # 0.6 (0-0.7) k/uL Basophils # 0.3 H (0-0.2) k/uL Macrocytosis Slight Sodium 132 L (137-145) mmol/L Potassium 4.9 (3.5-5.1) mmol/L Chloride 101 (98-107) mmol/L Carbon Dioxide 29 (22-30) mmol/L Anion Gap 2 mmol/L BUN 29 H (7-17) mg/dL Creatinine 2.33 H (0.52-1.04) mg/dL Est GFR (CKD-EPI)AfAm 27 (>60 ml/min/1.73 sqM) Est GFR (CKD-EPI)NonAf 24 (>60 ml/min/1.73 sqM) Glucose 192 H (74-99) mg/dL Calcium 9.3 (8.4-10.2) mg/dL Total Bilirubin 0.7 (0.2-1.3) mg/dL AST 26 (14-36) U/L ALT 20 (4-34) U/L Alkaline Phosphatase 139 H (38-126) U/L Total Protein 6.0 L (6.3-8.2) g/dL Albumin 3.1 L (3.5-5.0) g/dL Urine Color Yellow Urine Appearance Clear (Clear) Urine pH 6.5 (5.0-8.0) Ur Specific [place] 1.012 (1.001-1.035) Urine Protein 3+ H (Negative) Urine Glucose (UA) 1+ H (Negative) Urine Ketones Negative (Negative) Urine Blood Trace H (Negative) Urine Nitrite Negative (Negative) Urine Bilirubin Negative (Negative) Urine Urobilinogen <2.0 (<2.0) mg/dL Ur Leukocyte Esterase Small H (Negative) Urine RBC 2 (0-5) /hpf Urine WBC 13 H (0-5) /hpf Urine Bacteria Rare H (None) /hpf Disposition Clinical Impression: Back pain Disposition: HOME SELF-CARE Condition: Good Instructions (If sedation given, give patient instructions): Acute Low Back Pain (ED) Additional Instructions: Please take Tylenol for pain. Please do gentle stretches. Follow-up with your doctor in one to 2 days. Return to the emergency room for any worsening symptoms. Take antibiotic for possible urinary tract infection. Prescriptions: Nitrofurantoin Monohyd/M-Cryst [Macrobid] 100 mg PO Q12HR 7 Days #14 cap Is patient prescribed a controlled substance at d/c from ED?: No Referrals: Mina Blanca MD [STAFF PHYSICIAN] - 1-2 days Kartik Guzman [STAFF PHYSICIAN] - 1-2 days Time of Disposition: 12:41
[2020-04-11 11:09] LABS: Basophils # (A) 0.3 k/uL (0-0.2); Basophils % (A) 3 %; Eosinophils # (A) 0.6 k/uL (0-0.7); Eosinophils % (A) 6 %; HCT 44.8 % (34.0-46.0); HGB 15.3 gm/dL (11.4-16.0); Lymphocytes # (A) 2.7 k/uL (1.0-4.8); Lymphocytes % (A) 25 %; MCH 33.6 pg (25.0-35.0); MCHC 34.1 g/dL (31.0-37.0); MCV 98.5 fL (80.0-100.0); Macrocytosis Slight; Mean Platelet Volume 8.8; Monocytes # (A) 0.7 k/uL (0-1.0); Monocytes % (A) 7 %; Neutrophils # (A) 6.1 k/uL (1.3-7.7); Neutrophils % (A) 57 %; Platelet Count 223 k/uL (150-450); RBC 4.55 m/uL (3.80-5.40); RDW 15.3 % (11.5-15.5); WBC 10.7 k/uL (3.8-10.6)
[2020-04-11 11:18] LABS: Appearance,Urine Clear (Clear); Bacteria,Urine Rare /hpf; Bilirubin,Urine Negative (Negative); Blood,Urine Trace (Negative); Color,Urine Yellow; Glucose,Urine (UA) 1+ (Negative); Ketones,Urine Negative (Negative); Leukocyte Esterase,Urine Small (Negative); Nitrite,Urine Negative (Negative); PH, Urine 6.5 (5.0-8.0); Protein,Urine 3+ (Negative); RBC,Urine 2 /hpf (0-5); Specific Gravity,Urine 1.012 (1.001-1.035); Urobilinogen,Urine <2.0 mg/dL (<2.0); WBC,Urine 13 /hpf (0-5)
[2020-04-11 11:22] LABS: Albumin 3.1 g/dL (3.5-5.0); Calcium 9.3 mg/dL (8.4-10.2); Potassium 4.9 mmol/L (3.5-5.1); Total Bilirubin 0.7 mg/dL (0.2-1.3)
--- NOTE | 2020-04-11 11:59 | CT ---
EXAMINATION TYPE: CT abdomen pelvis wo con DATE OF EXAM: 04/11/2020 HISTORY: Right flank pain and hip pain. CT DLP: 423.9 mGycm. Automated Exposure Control for Dose Reduction was Utilized. TECHNIQUE: CT scan of the abdomen and pelvis is performed without oral or IV contrast. COMPARISON: CT abdomen and pelvis June 08, 2019 FINDINGS: Within the limitations of a non-contrast study, the following observations are made. LUNG BASES: Heart size upper limits of normal. Trace anterior pericardial effusion redemonstrated. Mi ld bibasilar linear scarring and/or atelectasis LIVER/GB: Small dependent stones and/or gallbladder sludge are again seen. PANCREAS: No significant abnormality is seen. SPLEEN: No significant abnormality is seen. ADRENALS: No significant abnormality is seen. KIDNEYS: Cortical thinning both kidneys. Central small vessel vascular calcification. No hydronephros is. Findings consistent with long-standing chronic medical renal disease. Prominent retroperitoneal f at or fibrosis occupies more than 50% of the midabdomen axial image 46 causing anterior deviation of the intraperitoneal structures. BOWEL: Suboptimal evaluation without enteric contrast. Surgical sutures sigmoid rectal colon Flexima 2014 are noted. No suspicious small or large bowel dilatation. Low-lying cecum into the right pelvis coronal image 43. GENITAL ORGANS: Slightly prominent uterus projects to right of midline. Correlate for underlying fibr oids. Trace free fluid right pelvic cul-de-sac axial image 117 less prominent than prior. LYMPH NODES: No greater than 1cm abdominal or pelvic lymph nodes are appreciated. OSSEOUS STRUCTURES: Transitional type vertebra lumbosacral junction. Facet arthropathy lower lumbar l evels. OTHER: There is aortobifemoral bypass graft redemonstrated. Surgical clips right groin region redemon strated. IMPRESSION: No suspicious new or acute finding to account for patient's symptoms of right-sided flank and hip pain. Retroperitoneal lipomatosis and evidence of long-standing chronic medical renal diseas e redemonstrated.
[2020-04-11 12:40] VITALS: BP 179/87; PULSE 75; TEMP 97.9
== END 2020-04-11 13:08 | disposition home or self-care (01) ==
LOC: EC 10:01
DX: M54.5 Low back pain (principal); I13.0 Hypertensive heart and chronic kidney disease with heart failure and stage 1 through stage 4 chronic kidney disease, or unspecified chronic kidney disease; E11.22 Type 2 diabetes mellitus with diabetic chronic kidney disease; N18.4 Chronic kidney disease, stage 4 (severe); I50.9 Heart failure, unspecified; J44.9 Chronic obstructive pulmonary disease, unspecified; E78.5 Hyperlipidemia, unspecified; F32.9 Major depressive disorder, single episode, unspecified; F41.9 Anxiety disorder, unspecified; F17.200 Nicotine dependence, unspecified, uncomplicated; Z79.899 Other long term (current) drug therapy; Z79.4 Long term (current) use of insulin; Z88.0 Allergy status to penicillin; Z91.030 Bee allergy status; Z86.73 Personal history of transient ischemic attack (TIA), and cerebral infarction without residual deficits
CPT/HCPCS: 36415; 80053; 85025; 81001; 87086; 74176; 99284; 96374; 96375; 96361 ×2; J2270; J2405

== ENCOUNTER 2020-04-17 22:17 | Inpatient (IN) | payer OTHER ==
[2020-04-17 22:28] LABS: Glucose,Whole Blood 311 mg/dL (75-99)
[2020-04-17] MEDS ORDERED: SODIUM CHLORIDE 0.9% 1,000 ML IV STA ×2 (22:41)
--- NOTE | 2020-04-17 22:42 | ED ---
Neuro HPI - General Chief Complaint: Neuro Symptoms/Deficit Stated Complaint: Left sided weakness Time Seen by Provider: 04/17/20 22:40 Source: EMS, RN notes reviewed, old records reviewed Mode of arrival: EMS Limitations: no limitations - History of Present Illness Is the patient presenting with stroke symptoms?: Yes -: hour(s) Initial Comments: This is a 49-year-old female DF for evaluation patient Dese for evaluation headache and weakness, notes, persistent here in the ER with acute pleural effusion elevated blood pressure. Patient has significant headache, left-sided weakness again. No history of CVA but she does have significant history of aneurysm with subarachnoid hemorrhage, aneurysm was clipped. Patient has been doing well since surgery Location: left arm, left leg History of same: No Place: home Severity: mild Quality: weak Improves With: none On Anticoagulants: Yes Context: gradual onset Associated Symptoms: denies other symptoms Treatments Prior to Arrival: none - Related Data Home Medications: Home Medications Medication Instructions Recorded Confirmed Ergocalciferol (Vitamin D2) 50,000 unit PO Q14D 01/21/15 04/11/20 [Drisdol] Ferrous Sulfate [Iron (65 MG 325 mg PO BID 01/21/15 04/11/20 Elemental)] Loratadine [Claritin] 10 mg PO DAILY 01/21/15 04/11/20 lamoTRIgine [LaMICtal] 25 mg PO BID 01/21/15 04/11/20 Atorvastatin [Lipitor] 80 mg PO HS 06/30/17 04/11/20 Citalopram Hydrobromide [CeleXA] 20 mg PO DAILY 06/30/17 04/11/20 amLODIPine [Norvasc] 10 mg PO DAILY 06/18/18 04/11/20 Insulin Glargine,Hum.rec.anlog 22 units SQ HS 07/03/18 04/11/20 [Basaglar Kwikpen U-100] allopurinoL [Zyloprim] 100 mg PO DAILY 08/30/18 04/11/20 Umeclidinium [place] [Incruse 1 puff INHALATION RT-HS 10/08/18 04/11/20 Ellipta] Insulin Lispro [Admelog] See Protocol SQ AC-TID 05/22/19 04/11/20 Furosemide [Lasix] 20 mg PO BID 09/04/19 04/11/20 Furosemide [Lasix] 40 mg PO BID 09/04/19 04/11/20 Carvedilol [Coreg] 6.25 mg PO BID 04/11/20 04/11/20 Isosorbide Mononitrate ER [Imdur] 30 mg PO DAILY 04/11/20 04/11/20 ondansetron HCL [Zofran] 8 mg PO Q8HR PRN 04/11/20 04/11/20 traMADol HCl [Ultram] 50 mg PO Q8H PRN 04/11/20 04/11/20 Previous Rx's Medication Instructions Recorded Nitrofurantoin Monohyd/M-Cryst 100 mg PO Q12HR 7 Days #14 cap 04/11/20 [Macrobid] Allergies/Adverse Reactions: Allergies Allergy/AdvReac Type Severity Reaction Status Date / Time bee venom protein (honey bee) Allergy Anaphylaxis Verified 04/17/20 22:19 Penicillins Allergy Rash/Hives Verified 04/17/20 22:19 Review of Systems ROS Statement: Those systems with pertinent positive or pertinent negative responses have been documented in the HPI. ROS Other: All systems not noted in ROS Statement are negative. General Exam Limitations: no limitations General appearance: alert, in no apparent distress Head exam: Present: atraumatic, normocephalic, normal inspection Eye exam: Present: normal appearance, PERRL, EOMI. Absent: scleral icterus, conjunctival injection, periorbital swelling ENT exam: Present: normal exam, mucous membranes moist Neck exam: Present: normal inspection. Absent: tenderness, meningismus, lymphadenopathy Respiratory exam: Present: normal lung sounds bilaterally. Absent: respiratory distress, wheezes, rales, rhonchi, stridor Cardiovascular Exam: Present: regular rate, normal rhythm, normal heart sounds. Absent: systolic murmur, diastolic murmur, rubs, gallop, clicks GI/Abdominal exam: Present: soft, normal bowel sounds. Absent: distended, ten derness, guarding, rebound, rigid Extremities exam: Present: normal inspection, full ROM, normal capillary refill. Absent: tenderness, pedal edema, joint swelling, calf tenderness Back exam: Present: normal inspection Neurological exam: Present: alert, oriented X3, CN II-XII intact Psychiatric exam: Present: normal affect, normal mood Skin exam: Present: warm, dry, intact, normal color. Absent: rash Stroke MDM - Lab Data Result diagrams: 04/17/20 22:43 04/17/20 22:43 Lab Results 04/17/20 04/17/20 04/17/20 Range/Units 22:27 22:43 22:43 WBC 10.1 (3.8-10.6) k/uL RBC 4.79 (3.80-5.40) m/uL Hgb 16.4 H (11.4-16.0) gm/dL Hct 47.9 H (34.0-46.0) % MCV 100.1 H (80.0-100.0) fL MCH 34.2 (25.0-35.0) pg MCHC 34.2 (31.0-37.0) g/dL RDW 15.2 (11.5-15.5) % Plt Count 206 (150-450) k/uL MPV 9.1 Neutrophils % 65 % Lymphocytes % 24 % Monocytes % 6 % Eosinophils % 2 % Basophils % 2 % Neutrophils # 6.5 (1.3-7.7) k/uL Lymphocytes # 2.4 (1.0-4.8) k/uL Monocytes # 0.6 (0-1.0) k/uL Eosinophils # 0.2 (0-0.7) k/uL Basophils # 0.2 (0-0.2) k/uL Macrocytosis Slight PT 11.2 (9.0-12.0) sec INR 1.1 (<1.2) APTT 24.1 (22.0-30.0) sec Sodium (137-145) mmol/L Potassium (3.5-5.1) mmol/L Chloride (98-107) mmol/L Carbon Dioxide (22-30) mmol/L Anion Gap mmol/L BUN (7-17) mg/dL Creatinine (0.52-1.04) mg/dL Est GFR (CKD-EPI)AfAm (>60 ml/min/1.73 sqM) Est GFR (CKD-EPI)NonAf (>60 ml/min/1.73 sqM) Glucose (74-99) mg/dL POC Glucose (mg/dL) 311 H (75-99) mg/dL POC Glu Acute Care Nursing Assistant ID Kat, Jaida Calcium (8.4-10.2) mg/dL Phosphorus (2.5-4.5) mg/dL Magnesium (1.6-2.3) mg/dL Total Bilirubin (0.2-1.3) mg/dL AST (14-36) U/L ALT (4-34) U/L Alkaline Phosphatase (38-126) U/L Troponin I (0.000-0.034) ng/mL NT-Pro-B Natriuret Pep pg/mL Total Protein (6.3-8.2) g/dL Albumin (3.5-5.0) g/dL Urine Color Urine Appearance (Clear) Urine pH (5.0-8.0) Ur Specific [place] (1.001-1.035) Urine Protein (Negative) Urine Glucose (UA) (Negative) Urine Ketones (Negative) Urine Blood (Negative) Urine Nitrite (Negative) Urine Bilirubin (Negative) Urine Urobilinogen (<2.0) mg/dL Ur Leukocyte Esterase (Negative) Urine RBC (0-5) /hpf Urine WBC (0-5) /hpf Ur Squamous Epith Cells (0-4) /hpf Hyaline Casts (0-2) /lpf Urine Mucus (None) /hpf 04/17/20 04/17/20 04/17/20 Range/Units 22:43 22:43 22:43 WBC (3.8-10.6) k/uL RBC (3.80-5.40) m/uL Hgb (11.4-16.0) gm/dL Hct (34.0-46.0) % MCV (80.0-100.0) fL MCH (25.0-35.0) pg MCHC (31.0-37.0) g/dL RDW (11.5-15.5) % Plt Count (150-450) k/uL MPV Neutrophils % % Lymphocytes % % Monocytes % % Eosinophils % % Basophils % % Neutrophils # (1.3-7.7) k/uL Lymphocytes # (1.0-4.8) k/uL Monocytes # (0-1.0) k/uL Eosinophils # (0-0.7) k/uL Basophils # (0-0.2) k/uL Macrocytosis PT (9.0-12.0) sec INR (<1.2) APTT (22.0-30.0) sec Sodium 125 L (137-145) mmol/L Potassium 4.4 (3.5-5.1) mmol/L Chloride 91 L (98-107) mmol/L Carbon Dioxide 27 (22-30) mmol/L Anion Gap 7 mmol/L BUN 45 H (7-17) mg/dL Creatinine 2.41 H (0.52-1.04) mg/dL Est GFR (CKD-EPI)AfAm 26 (>60 ml/min/1.73 sqM) Est GFR (CKD-EPI)NonAf 23 (>60 ml/min/1.73 sqM) Glucose 333 H (74-99) mg/dL POC Glucose (mg/dL) (75-99) mg/dL POC Glu Acute Care Nursing Assistant ID Calcium 9.4 (8.4-10.2) mg/dL Phosphorus 4.6 H (2.5-4.5) mg/dL Magnesium 2.1 (1.6-2.3) mg/dL Total Bilirubin 1.1 (0.2-1.3) mg/dL AST 24 (14-36) U/L ALT 15 (4-34) U/L Alkaline Phosphatase 124 (38-126) U/L Troponin I 0.088 H* (0.000-0.034) ng/mL NT-Pro-B Natriuret Pep pg/mL Total Protein 6.3 (6.3-8.2) g/dL Albumin 3.4 L (3.5-5.0) g/dL Urine Color Yellow Urine Appearance Clear (Clear) Urine pH 6.5 (5.0-8.0) Ur Specific [place] 1.014 (1.001-1.035) Urine Protein 3+ H (Negative) Urine Glucose (UA) 3+ H (Negative) Urine Ketones Trace H (Negative) Urine Blood Moderate H (Negative) Urine Nitrite Negative (Negative) Urine Bilirubin Negative (Negative) Urine Urobilinogen <2.0 (<2.0) mg/dL Ur Leukocyte Esterase Negative (Negative) Urine RBC 6 H (0-5) /hpf Urine WBC 11 H (0-5) /hpf Ur Squamous Epith Cells 4 (0-4) /hpf Hyaline Casts 29 H (0-2) /lpf Urine Mucus Rare H (None) /hpf 12/16/20 Range/Units 22:43 WBC (3.8-10.6) k/uL RBC (3.80-5.40) m/uL Hgb (11.4-16.0) gm/dL Hct (34.0-46.0) % MCV (80.0-100.0) fL MCH (25.0-35.0) pg MCHC (31.0-37.0) g/dL RDW (11.5-15.5) % Plt Count (150-450) k/uL MPV Neutrophils % % Lymphocytes % % Monocytes % % Eosinophils % % Basophils % % Neutrophils # (1.3-7.7) k/uL Lymphocytes # (1.0-4.8) k/uL Monocytes # (0-1.0) k/uL Eosinophils # (0-0.7) k/uL Basophils # (0-0.2) k/uL Macrocytosis PT (9.0-12.0) sec INR (<1.2) APTT (22.0-30.0) sec Sodium (137-145) mmol/L Potassium (3.5-5.1) mmol/L Chloride (98-107) mmol/L Carbon Dioxide (22-30) mmol/L Anion Gap mmol/L BUN (7-17) mg/dL Creatinine (0.52-1.04) mg/dL Est GFR (CKD-EPI)AfAm (>60 ml/min/1.73 sqM) Est GFR (CKD-EPI)NonAf (>60 ml/min/1.73 sqM) Glucose (74-99) mg/dL POC Glucose (mg/dL) (75-99) mg/dL POC Glu Acute Care Nursing Assistant ID Calcium (8.4-10.2) mg/dL Phosphorus (2.5-4.5) mg/dL Magnesium (1.6-2.3) mg/dL Total Bilirubin (0.2-1.3) mg/dL AST (14-36) U/L ALT (4-34) U/L Alkaline Phosphatase (38-126) U/L Troponin I (0.000-0.034) ng/mL NT-Pro-B Natriuret Pep 27049 pg/mL Total Protein (6.3-8.2) g/dL Albumin (3.5-5.0) g/dL Urine Color Urine Appearance (Clear) Urine pH (5.0-8.0) Ur Specific [place] (1.001-1.035) Urine Protein (Negative) Urine Glucose (UA) (Negative) Urine Ketones (Negative) Urine Blood (Negative) Urine Nitrite (Negative) Urine Bilirubin (Negative) Urine Urobilinogen (<2.0) mg/dL Ur Leukocyte Esterase (Negative) Urine RBC (0-5) /hpf Urine WBC (0-5) /hpf Ur Squamous Epith Cells (0-4) /hpf Hyaline Casts (0-2) /lpf Urine Mucus (None) /hpf - NIH Stroke Scale 1a. Level of Consciousness: (0) alert 1b. LOC Questions: (0) answers correctly 1c. LOC Commands: (0) performs tasks correctly 2. Best Gaze: (0) normal 3. Visual: (0) no visual loss 4. Facial Palsy: (0) normal symmetrical movement 5a. Motor Arm Left: (0) no drift 5b. Motor Arm Right: (0) no drift 6a. Motor Leg Left: (0) no drift 6b. Motor Leg Right: (0) no drift 7. Limb Ataxia: (0) absent 8. Sensory: (0) normal 9. Best Language: (0) no aphasia 10. Dysarthria: (0) normal 11. Extinction/Inattention: (0) no abnormality - Thrombolytic Inclusion/Exclusion Thrombolytic Exclusion Criteria: Onset of Symptoms Unknown Thrombolytic Inclusion Criteria: Symptom Onset < 4.5 h - Medical Decision Making 49 female with a type symptoms coming in for evaluation. Patient be admitted for neurology to evaluate and treat headache and blood pressure control. - Radiology Data Radiology results: report reviewed (CT brain chest x-ray and repeat CT secondary to increase headache is negative for acute disease), image reviewed - EKG Data -: EKG Interpreted by Me (EKG is sinus rhythm 82 NE 152 QRS 86 QTc 467) Past Medical History Past Medical History: Cancer, Heart Failure, COPD, CVA/TIA, Diabetes Mellitus, Hyperlipidemia, Hypertension, Renal Disease, Vascular Disorder Additional Past Medical History / Comment(s): CHF, valvular heart disease with MR, peripheral vascular disease, CML. 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 History of Any Multi-Drug Resistant Organisms: None Reported Past Surgical History: Appendectomy, Bowel Resection, Orthopedic Surgery, Tubal Ligation Additional Past Surgical History / Comment(s): Hx of colostomy and reversal, rotator cuff repair on Left, hx of fem/pop bypass. Colonoscopy 2012, cardiac catheterization Past Anesthesia/Blood Transfusion Reactions: No Reported Reaction Past Psychological History: Anxiety, Depression Smoking Status: Current every day smoker Past Alcohol Use History: None Reported Past Drug Use History: Marijuana - Past Family History Mother Family Medical History: Congestive Heart Failure (CHF), Diabetes Mellitus Brother(s) Additional Family Medical History / Comment(s): CABG Sister(s) Family Medical History: CVA/TIA Additional Family Medical History / Comment(s): Maternal aunt had breast cancer. Course Vital Signs 04/17/20 04/17/20 04/18/20 22:19 23:25 00:10 Temperature 98.0 F Pulse Rate 99 80 84 Respiratory 18 19 18 Rate Blood Pressure 96/67 103/78 141/91 O2 Sat by Pulse 100 100 98 Oximetry - Reevaluation(s) Reevaluation #1: 04/18/20 01:42 Medical record was reviewed Reevaluation #2: 04/18/20 01:43 Patient had increased blood pressure increased headache so we did do a repeat computed tomography scan and has remained negative Reevaluation #3: 04/18/20 01:43 Patient is informed of results here in the ER questions are answered Disposition Clinical Impression: Transient cerebral ischemia, Hypertension Disposition: ADMITTED IP TO THIS HOSP Condition: Good Is patient prescribed a controlled substance at d/c from ED?: No
[2020-04-17 22:53] LABS: Basophils # (A) 0.2 k/uL (0-0.2); Basophils % (A) 2 %; Eosinophils # (A) 0.2 k/uL (0-0.7); Eosinophils % (A) 2 %; HCT 47.9 % (34.0-46.0); HGB 16.4 gm/dL (11.4-16.0); Lymphocytes # (A) 2.4 k/uL (1.0-4.8); Lymphocytes % (A) 24 %; MCH 34.2 pg (25.0-35.0); MCHC 34.2 g/dL (31.0-37.0); MCV 100.1 fL (80.0-100.0); Macrocytosis Slight; Mean Platelet Volume 9.1; Monocytes # (A) 0.6 k/uL (0-1.0); Monocytes % (A) 6 %; Neutrophils # (A) 6.5 k/uL (1.3-7.7); Neutrophils % (A) 65 %; Platelet Count 206 k/uL (150-450); RBC 4.79 m/uL (3.80-5.40); RDW 15.2 % (11.5-15.5); WBC 10.1 k/uL (3.8-10.6)
[2020-04-17 23:00] LABS: Albumin 3.4 g/dL (3.5-5.0); Calcium 9.4 mg/dL (8.4-10.2); Magnesium 2.1 mg/dL (1.6-2.3); Phosphorus 4.6 mg/dL (2.5-4.5); Potassium 4.4 mmol/L (3.5-5.1); Total Bilirubin 1.1 mg/dL (0.2-1.3); Total Protein 6.3 g/dL (6.3-8.2)
[2020-04-17 23:03] LABS: INR 1.1 (<1.2); Partial Thromboplastin Time 24.1 sec (22.0-30.0); Prothrombin Time 11.2 sec (9.0-12.0)
--- NOTE | 2020-04-17 23:06 | CT ---
EXAMINATION TYPE: CT brain wo con DATE OF EXAM: 04/17/2020 COMPARISON: 09/04/2019 HISTORY: weakness CT DLP: 1129.4 mGycm Automated exposure control for dose reduction was used. Exam performed without contrast. There is extensive metal artifact apparently from surgical clip involving the anterior communicating artery. There is no mass effect nor midline shift. There is no sign of intracranial hemorrhage. Ventr icles have fairly normal size. There is frontal craniotomy defect. IMPRESSION: There is clearing of the subarachnoid hemorrhage compared to old exam. There is dense metal aneurysm clip apparently involving the anterior communicating artery or anterior cerebral artery. No acute int racranial abnormality.
--- NOTE | 2020-04-17 23:15 | XR ---
EXAMINATION TYPE: XR chest 2V DATE OF EXAM: 04/17/2020 COMPARISON: 09/04/2019 HISTORY: Weakness TECHNIQUE: FINDINGS: Heart and mediastinum are within normal limits. Lungs are clear. Costophrenic angles are cl ear. There are chest leads. Bony thorax is intact. There is no sign of pleural effusion. IMPRESSION: No active cardiopulmonary disease. There is clearing of the pulmonary interstitial edema compared to old exam.
[2020-04-17 23:32] LABS: Appearance,Urine Clear (Clear); Bilirubin,Urine Negative (Negative); Blood,Urine Moderate (Negative); Color,Urine Yellow; Glucose,Urine (UA) 3+ (Negative); Hyaline Casts,Urine 29 /lpf (0-2); Ketones,Urine Trace (Negative); Leukocyte Esterase,Urine Negative (Negative); Mucus,Urine Rare /hpf; Nitrite,Urine Negative (Negative); PH, Urine 6.5 (5.0-8.0); Protein,Urine 3+ (Negative); RBC,Urine 6 /hpf (0-5); Specific Gravity,Urine 1.014 (1.001-1.035); Squamous Epithelial Cell,Urine 4 /hpf (0-4); Urobilinogen,Urine <2.0 mg/dL (<2.0); WBC,Urine 11 /hpf (0-5)
[2020-04-18] MEDS ORDERED: MORPHINE SULFATE 4 MG/ML SYRINGE IVP STA (00:16)
[2020-04-18] MEDS ORDERED: cefTRIAXone IN SWFI 1,000 MG/10 ML SYRINGE IVP STA (01:14)
--- NOTE | 2020-04-18 01:35 | CT ---
EXAM: CT Head Without Intravenous Contrast CLINICAL HISTORY: ITS. REASON CT Reason: CAVLILLO TECHNIQUE: Axial computed tomography images of the head/brain without intravenous contrast. CTDI is 49.27 mGy and DLP is 1111.4 mGy-cm. This CT exam was performed using one or more of the following dose reduction techniques: automated exposure control, adjustment of the mA and/or kV according to patient size, and/or use of iterative reconstruction technique. COMPARISON: 09/04/19. FINDINGS: There has been interval frontal craniotomy for aneurysm clipping along the anterior interhemispheric fissure. Interval resolution of previously noted hemorrhage in the fissure as well as within the jugular system. No acute hemorrhage is identified. Resolution of ventriculomegaly. No new hemorrhage. Dural thickening deep to the craniotomy site is frequently encountered finding in the postoperative setting. Atherosclerosis of skull base arteries. Newly opacified frontal sinus may be partly postoperative in nature. Opacified inferior left mastoid air cells are stable. IMPRESSION: Interval craniotomy for aneurysm clipping in the anterior interhemispheric fissure. Resolution of fissural and intraventricular hemorrhage and of ventriculomegaly. No new bleeding.
[2020-04-18] MEDS: MORPHINE SULFATE 4 MG/ML SYRINGE IVP PRN ×2 (05:54→21:12)
[2020-04-18] MEDS ORDERED: ONDANSETRON 4 MG/2 ML VIAL IVP STA (05:56)
[2020-04-18] MEDS ORDERED: SULFAMETHOX-TMP 800-160MG 1 EACH TAB PO SCH (09:00)
[2020-04-18] MEDS ORDERED: ONDANSETRON 4 MG TAB PO PRN (11:03)
[2020-04-18] MEDS ORDERED: ONDANSETRON 4 MG/2 ML VIAL IVP PRN (11:57)
[2020-04-18 12:37] LABS: Calcium 8.8 mg/dL (8.4-10.2); Potassium 4.2 mmol/L (3.5-5.1)
--- NOTE | 2020-04-18 14:00 | ECHOF ---
Referral Reason: MEASUREMENTS -------- HEIGHT: 160.0 cm WEIGHT: 61.2 kg BP: RVIDd: 1.4 cm (< 3.3) IVSd: 1.0 cm (0.6 - 1.1) LVIDd: 4.2 cm (3.9 - 5.3) LVPWd: 1.3 cm (0.6 - 1.1) IVSs: 1.5 cm LVIDs: 3.4 cm LVPWs: 1.4 cm SV(Teich): 34 ml LAESV Index (A-L): 23.02 ml/m IVSd: 1.0 cm (0.6 - 1.1) LVIDd: 5.0 cm (3.9 - 5.3) LVPWd: 1.0 cm (0.6 - 1.1) IVSs: 1.2 cm LVIDs: 4.4 cm LVPWs: 1.2 cm EDV(Teich): 119 ml ESV(Teich): 86 ml EF(Teich): 28 % %FS: 13 % SV(Teich): 34 ml Ao Diam: 2.6 cm (2.0 - 3.7) AV Cusp: 1.6 cm (1.5 - 2.6) LA Diam: 3.0 cm (2.7 - 3.8) MV EXCURSION: 13.189 mm (> 18.000) MV EF SLOPE: 73 mm/s (70 - 150) EPSS: 1.4 cm MV E Avelino: 0.98 m/s MV DecT: 223 ms MV A Avelino: 0.39 m/s MV E/A Ratio: 2.48 AR PHT: 1041 ms RAP: 5.00 mmHg RVSP: 8.40 mmHg FINDINGS -------- This was a technically good study. The left ventricular size is normal. There is mild concentric left ventricular hypertrophy. Overa ll left ventricular systolic function is moderate-severely impaired with, an EF between 30 - 35 %. The LV end diastolic pressure is elevated 22.79. The right ventricle is normal in size. The left atrial size is normal. Normal LA size by volume 22+/-6 ml/m2. The right atrial size is normal. Aortic valve is trileaflet and is mildly thickened. There is mild aortic regurgitation. The mitral valve is normal. The mitral valve leaflets are mildly thickened. Mild mitral regurgita tion is present. The tricuspid valve appears structurally normal. Mild tricuspid regurgitation present. Right vent ricular systolic pressure is normal at < 35 mmHg. There is no pulmonic regurgitation present. The aortic root size is normal. IVC Not well visulized. There is no pericardial effusion. CONCLUSIONS -------- 1. The left ventricular size is normal. 2. There is mild concentric left ventricular hypertrophy. 3. Overall left ventricular systolic function is moderate-severely impaired with, an EF between 30 - 35 %. 4. The LV end diastolic pressure is elevated 22.79. 5. Aortic valve is trileaflet and is mildly thickened. 6. There is mild aortic regurgitation. 7. The mitral valve leaflets are mildly thickened. 8. Mild mitral regurgitation is present. 9. Mild tricuspid regurgitation present. 10. There is no pericardial effusion. [employer] COACH: Bing Freed RDCS
[2020-04-18] MEDS: lamoTRIgine 25 MG TAB PO SCH ×2 (14:07→20:43)
[2020-04-18] MEDS: CITALOPRAM HYDROBROMIDE 20 MG TAB PO SCH (14:08)
[2020-04-18] MEDS: allopurinoL 100 MG TAB PO SCH (14:08)
[2020-04-18] MEDS: LORATADINE 10 MG TAB PO SCH (14:08)
[2020-04-18] MEDS: ISOSORBIDE MONONITRATE ER 30 MG TAB.ER.24H PO SCH (14:08)
[2020-04-18] MEDS: carvediloL 6.25 MG TAB PO SCH ×2 (15:08→16:39)
--- NOTE | 2020-04-18 15:44 | P.CRDCN ---
History of Present Illness Consult date: 04/18/20 History of present illness: CHIEF COMPLAINT: Elevated troponin HISTORY OF PRESENT ILLNESS: This is a 49-year-old female with a past medical history significant for hypertension, hyperlipidemia, CVA, diabetes mellitus, COPD, carotid stenosis, and peripheral vascular disease. Patient also underwent aneurysm clipping in August 2019. Patient follows in the office with Dr. Becerril. We have been asked to see the patient in consultation for elevated troponin. Patient states she presented to the hospital secondary to left-sided weakness and a headache. She denies any chest pain or pressure. She denies any shortness of breath. DIAGNOSTICS: EKG reveals sinus mechanism with heart rate of 92. EKG suggestive of right atrial enlargement. Chest xray negative for acute cardio pulmonary process Laboratory data: WBC 10.1. Hemoglobin 16.4. Platelet Count 206. Sodium 132. Potassium 4.2. BUN 40. Creatinine 2.18. Troponin 0.088. BNP 40,100. Current home cardiac medications include Lipitor 80 mg daily, Imdur 30 mg daily, Coreg 6.25 mg twice a day, Lasix 40 mg twice a day Patient underwent cardiac catheterization in December 2018 revealing mild to moderate nonobstructive coronary artery disease Echocardiogram completed in 2019 revealed ejection fraction 45-50%, severe mitral regurgitation, mild tricuspid regurgitation REVIEW OF SYSTEMS: At the time of my exam: CONSTITUTIONAL: Denies fever or chills. HEENT: Denies blurred vision, vision changes, or eye pain. Denies hemoptysis CARDIOVASCULAR: Denies chest pain, orthopnea, PND or palpitations RESPIRATORY: No shortness of breath. GASTROINTESTINAL: Denies abdominal pain. Denies nausea or vomiting. HEMATOLOGIC: Denies bleeding disorders. GENITOURINARY: Denies any blood in urine. SKIN: Denies pruitis. Denies rash. PHYSICAL EXAM: VITAL SIGNS: Reviewed. GENERAL: Well-developed in no acute distress. HEENT: Head is normocephalic. Pupils are equal, round. Sclerae anicteric. Mucous membranes of the mouth are moist. Neck supple. No JVD or thyromegaly LUNGS: Respirations even and unlabored. Lungs diminished. HEART: Regular rate and rhythm. S1 and S2 heard. Systolic murmur noted. ABDOMEN: Soft. Nondistended. Nontender. EXTREMITIES: Normal range of motion. No clubbing or cyanosis. Peripheral pulses intact. Trace bilateral lower extremity edema NEUROLOGIC: Awake and alert. Oriented x 3. ASSESSMENT: Left sided weakness Headache Elevated troponin, no evidence of acute coronary syndrome Mild to moderate nonobstructive coronary artery disease Chronic kidney disease Peripheral vascular disease with prior fem-pop bypass Chronic diastolic congestive heart failure, EF 45-50% in 2019 Carotid stenosis Hypertension Hyperlipidemia Diabetes mellitus, type II Prior TIA COPD PLAN: Obtain 2D echo to assess cardiac structure and function Resume home cardiac medications No further troponins to be drawn per Dr. Figueredo Further recommendations pending patient course Nurse practitioner note has been reviewed by physician. Signing provider agrees with the documented findings, assessment, and plan of care. 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 History of Any Multi-Drug Resistant Organisms: None Reported Past Surgical History: Appendectomy, Bowel Resection, Orthopedic Surgery, Tubal Ligation Additional Past Surgical History / Comment(s): Hx of colostomy and reversal, rotator cuff repair on Left, hx of fem/pop bypass. Colonoscopy 2012, cardiac catheterization Past Anesthesia/Blood Transfusion Reactions: No Reported Reaction Past Psychological History: Anxiety, Depression Smoking Status: Current every day smoker Past Alcohol Use History: None Reported Additional Past Alcohol Use History / Comment(s): smokes 1 PPD Past Drug Use History: Marijuana - Past Family History Mother Family Medical History: Congestive Heart Failure (CHF), Diabetes Mellitus Brother(s) Additional Family Medical History / Comment(s): CABG Sister(s) Family Medical History: CVA/TIA Additional Family Medical History / Comment(s): Maternal aunt had breast cancer. Medications and Allergies Home Medications Medication Instructions Recorded Confirmed Type Ergocalciferol (Vitamin D2) 50,000 unit PO Q14D 01/21/15 04/18/20 History [Drisdol] Ferrous Sulfate [Iron (65 MG 325 mg PO BID 01/21/15 04/18/20 History Elemental)] Loratadine [Claritin] 10 mg PO DAILY 01/21/15 04/18/20 History lamoTRIgine [LaMICtal] 25 mg PO BID 01/21/15 04/18/20 History Atorvastatin [Lipitor] 80 mg PO HS 06/30/17 04/18/20 History Citalopram Hydrobromide [CeleXA] 20 mg PO DAILY 06/30/17 04/18/20 History Insulin Glargine,Hum.rec.anlog 22 units SQ HS 07/03/18 04/18/20 History [Basaglar Kwikpen U-100] allopurinoL [Zyloprim] 100 mg PO DAILY 08/30/18 04/18/20 History Umeclidinium Dexter [Incruse 1 puff INHALATION RT-HS 10/08/18 04/18/20 History Ellipta] Insulin Lispro [Admelog] See Protocol SQ AC-TID 05/22/19 04/18/20 History Furosemide [Lasix] 20 mg PO BID 09/04/19 04/18/20 History Furosemide [Lasix] 40 mg PO BID 09/04/19 04/18/20 History Carvedilol [Coreg] 6.25 mg PO BID 04/11/20 04/18/20 History Isosorbide Mononitrate ER [Imdur] 30 mg PO DAILY 04/11/20 04/18/20 History traMADol HCl [Ultram] 50 mg PO Q8H PRN 04/11/20 04/18/20 History Ondansetron HCl [Zofran] 4 mg PO Q8H PRN 04/18/20 04/18/20 History Allergies Allergy/AdvReac Type Severity Reaction Status Date / Time bee venom protein (honey bee) Allergy Anaphylaxis Verified 04/18/20 07:14 Penicillins Allergy Rash/Hives Verified 04/18/20 07:14 Physical Exam Vitals: Vital Signs Temp Pulse Pulse Resp BP BP Pulse Ox 04/18/20 15:04 61 16 208/88 04/18/20 13:09 72 16 131/83 98 04/18/20 12:15 98.4 F 87 18 127/62 98 04/18/20 07:00 98.6 F 92 29 H 122/62 97 04/18/20 06:50 71 18 141/91 97 04/18/20 06:00 92 20 179/100 96 04/18/20 05:00 65 20 118/75 97 04/18/20 04:32 87 22 116/72 97 04/18/20 04:05 76 18 111/82 97 04/18/20 03:00 77 19 107/76 98 04/18/20 02:02 75 19 133/86 97 04/18/20 01:00 97.7 F 79 18 117/79 98 04/18/20 00:10 84 18 141/91 98 04/17/20 23:25 80 19 103/78 100 04/17/20 22:19 98.0 F 99 18 96/67 100 Intake and Output 04/18/20 04/18/20 04/18/20 06:59 14:59 22:59 Other: Weight 61.235 kg Results 04/17/20 22:43 04/18/20 12:07 Cardiac Enzymes 04/17/20 04/17/20 Range/Units 22:43 22:43 AST 24 (14-36) U/L Troponin I 0.088 H* (0.000-0.034) ng/mL Coagulation 04/17/20 Range/Units 22:43 PT 11.2 (9.0-12.0) sec APTT 24.1 (22.0-30.0) sec CBC 04/17/20 Range/Units 22:43 WBC 10.1 (3.8-10.6) k/uL RBC 4.79 (3.80-5.40) m/uL Hgb 16.4 H (11.4-16.0) gm/dL Hct 47.9 H (34.0-46.0) % Plt Count 206 (150-450) k/uL Comprehensive Metabolic Panel 04/17/20 04/18/20 Range/Units 22:43 12:07 Sodium 125 L 132 L (137-145) mmol/L Potassium 4.4 4.2 (3.5-5.1) mmol/L Chloride 91 L 100 (98-107) mmol/L Carbon Dioxide 27 28 (22-30) mmol/L BUN 45 H 40 H (7-17) mg/dL Creatinine 2.41 H 2.18 H (0.52-1.04) mg/dL Glucose 333 H 264 H (74-99) mg/dL Calcium 9.4 8.8 (8.4-10.2) mg/dL AST 24 (14-36) U/L ALT 15 (4-34) U/L Alkaline Phosphatase 124 (38-126) U/L Total Protein 6.3 (6.3-8.2) g/dL Albumin 3.4 L (3.5-5.0) g/dL Current Medications Generic Name Dose Route Start Last Admin Trade Name Freq PRN Reason Stop Dose Admin Allopurinol 100 mg 04/18/20 11:15 04/18/20 14:08 Allopurinol 100 Mg Tab PO 100 mg DAILY KESHAWN Administration Atorvastatin Calcium 80 mg 04/18/20 21:00 Atorvastatin 80 Mg Tab PO HS KESHAWN Carvedilol 6.25 mg 04/18/20 11:15 04/18/20 15:08 Carvedilol 6.25 Mg Tab PO 6.25 mg BID-W/MEALS KESHAWN Administration Citalopram Hydrobromide 20 mg 04/18/20 11:15 04/18/20 14:08 Citalopram Hydrobromide 20 Mg Tab PO 20 mg DAILY KESHAWN Administration Ferrous Sulfate 325 mg 04/18/20 21:00 Ferrous Sulfate 325 Mg Tab PO BID KESHAWN Insulin Detemir 22 unit 04/18/20 21:00 Insulin Detemir (Levemir) 100 Unit/Ml Syr SQ HS [facility] Ipratropium Dexter 0.5 mg 04/18/20 20:00 Ipratropium 0.5 Mg/2.5 Ml Nebu INHALATION RT-QID KESHAWN Isosorbide Mononitrate 30 mg 04/18/20 11:15 04/18/20 14:08 Isosorbide Mononitrate Er 30 Mg Tab.Er.24h PO 30 mg DAILY KESHAWN Administration Lamotrigine 25 mg 04/18/20 11:15 04/18/20 14:07 Lamotrigine 25 Mg Tab PO 25 mg BID KESHAWN Administration Loratadine 10 mg 04/18/20 11:15 04/18/20 14:08 Loratadine 10 Mg Tab PO 10 mg DAILY [facility] Administration Morphine Sulfate 4 mg 04/18/20 00:16 04/18/20 05:54 Morphine Sulfate 4 Mg/Ml Syringe IVP 4 mg Q4HR PRN Administration Pain Ondansetron HCl 4 mg 04/18/20 11:03 Ondansetron 4 Mg Tab PO Q8H PRN Nausea And Vomiting Ondansetron HCl 4 mg 04/18/20 11:57 04/18/20 11:58 Ondansetron 4 Mg/2 Ml Vial IVP 4 mg ONCE PRN Administration Nausea And Vomiting Tramadol HCl 50 mg 04/18/20 11:03 Tramadol 50 Mg Tab PO Q8H PRN Severe Pain Trimethoprim/Sulfamethoxazole 1 each 04/18/20 09:00 04/18/20 08:26 Sulfamethox-Tmp 800-160mg 1 Each Tab PO 1 each BID KESHAWN Administration Intake and Output 04/18/20 04/18/20 04/18/20 06:59 14:59 22:59 Other: Weight 61.235 kg Patient Weight 04/19/20 06:59 Weight 61.235 kg 04/17/20 22:43 04/18/20 12:07
[2020-04-18] MEDS ORDERED: NALOXONE 0.4 MG/ML 1 ML VIAL IV PRN (15:51)
--- NOTE | 2020-04-18 16:04 | P.HPIM ---
History of Present Illness H&P Date: 04/18/20 Chief Complaint: CVA 49-year-old female with long-standing history of diabetes and multiple other medical problems as below presented to the emergency department because of left- sided weakness and numbness that lasted for 5 minutes. Patient stated that she has been having intractable vomiting and headaches on the right side over the past 2-3 days. She states that anything she eats would come right back up. She denied having fevers but admitted to chills. Denied blurred or double vision. Denied any recurrent weakness or numbness. 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 Patient was told not to take any blood thinners after clipping of the aneurysm. Evaluation in the emergency department revealed normal CBC and coags, sodium 125 , creatinine 2.41. BUN 45, glucose 333, troponin 0.088, no BNP 40,000. Head CT scan was unremarkable for acute ischemia or bleeding. It only showed aneurysm clipping that is old. CXR showed no acute disease. EKG showed old septal/anterior infarct with no acute St or T wave changes. Review of Systems Complete review of system performed, pertinent positives per HPI, otherwise negative Past Medical History Past Medical History: Cancer, Heart Failure, COPD, CVA/TIA, Diabetes Mellitus, Hyperlipidemia, Hypertension, Renal Disease, Vascular Disorder Additional Past Medical History / Comment(s): CHF, valvular heart disease with MR, peripheral vascular disease, CML. 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 History of Any Multi-Drug Resistant Organisms: None Reported Past Surgical History: Appendectomy, Bowel Resection, Orthopedic Surgery, Tubal Ligation Additional Past Surgical History / Comment(s): Hx of colostomy and reversal, rotator cuff repair on Left, hx of fem/pop bypass. Colonoscopy 2012, cardiac catheterization Past Anesthesia/Blood Transfusion Reactions: No Reported Reaction Past Psychological History: Anxiety, Depression Smoking Status: Current every day smoker Past Alcohol Use History: None Reported Additional Past Alcohol Use History / Comment(s): smokes 1 PPD Past Drug Use History: Marijuana - Past Family History Mother Family Medical History: Congestive Heart Failure (CHF), Diabetes Mellitus Brother(s) Additional Family Medical History / Comment(s): CABG Sister(s) Family Medical History: CVA/TIA Additional Family Medical History / Comment(s): Maternal aunt had breast cancer. Medications and Allergies Home Medications Medication Instructions Recorded Confirmed Type Ergocalciferol (Vitamin D2) 50,000 unit PO Q14D 01/21/15 04/18/20 History [Drisdol] Ferrous Sulfate [Iron (65 MG 325 mg PO BID 01/21/15 04/18/20 History Elemental)] Loratadine [Claritin] 10 mg PO DAILY 01/21/15 04/18/20 History lamoTRIgine [LaMICtal] 25 mg PO BID 01/21/15 04/18/20 History Atorvastatin [Lipitor] 80 mg PO HS 06/30/17 04/18/20 History Citalopram Hydrobromide [CeleXA] 20 mg PO DAILY 06/30/17 04/18/20 History Insulin Glargine,Hum.rec.anlog 22 units SQ HS 07/03/18 04/18/20 History [Basaglar Kwikpen U-100] allopurinoL [Zyloprim] 100 mg PO DAILY 08/30/18 04/18/20 History Umeclidinium [place] [Incruse 1 puff INHALATION RT-HS 10/08/18 04/18/20 History Ellipta] Insulin Lispro [Admelog] See Protocol SQ AC-TID 05/22/19 04/18/20 History Furosemide [Lasix] 20 mg PO BID 09/04/19 04/18/20 History Furosemide [Lasix] 40 mg PO BID 09/04/19 04/18/20 History Carvedilol [Coreg] 6.25 mg PO BID 04/11/20 04/18/20 History Isosorbide Mononitrate ER [Imdur] 30 mg PO DAILY 04/11/20 04/18/20 History traMADol HCl [Ultram] 50 mg PO Q8H PRN 04/11/20 04/18/20 History Ondansetron HCl [Zofran] 4 mg PO Q8H PRN 04/18/20 04/18/20 History Allergies Allergy/AdvReac Type Severity Reaction Status Date / Time bee venom protein (honey bee) Allergy Anaphylaxis Verified 04/18/20 07:14 Penicillins Allergy Rash/Hives Verified 04/18/20 07:14 Physical Exam Vitals: Vital Signs Temp Pulse Pulse Resp BP BP Pulse Ox 04/18/20 15:04 61 16 208/88 04/18/20 13:09 72 16 131/83 98 04/18/20 12:15 98.4 F 87 18 127/62 98 04/18/20 07:00 98.6 F 92 29 H 122/62 97 04/18/20 06:50 71 18 141/91 97 04/18/20 06:00 92 20 179/100 96 04/18/20 05:00 65 20 118/75 97 04/18/20 04:32 87 22 116/72 97 04/18/20 04:05 76 18 111/82 97 04/18/20 03:00 77 19 107/76 98 04/18/20 02:02 75 19 133/86 97 04/18/20 01:00 97.7 F 79 18 117/79 98 04/18/20 00:10 84 18 141/91 98 04/17/20 23:25 80 19 103/78 100 04/17/20 22:19 98.0 F 99 18 96/67 100 Intake and Output 04/18/20 04/18/20 04/18/20 06:59 14:59 22:59 Other: Weight 61.235 kg Constitutional: No acute distress, conversant, pleasant Eyes:Anicteric sclerae, moist conjunctiva, no lid-lag, PERRLA, ENMT: Oropharynx clear, no erythema, exudates Neck: Supple, FROM, no masses, or JVD, No carotid bruits, No thyromegaly Lungs: Clear to auscultation, Clear to percussion, Normal respiratory effort, no accessory muscle use Cardiovascular: Heart regular in rate and rhythm, No murmurs, gallops, or rubs, No peripheral edema Abdominal: Soft, Nontender, no guarding, rebound or rigidity, Normoactive bowel sounds, No hepatomegaly, No splenomegaly, No palpable mass Skin: Normal temperature, tone, texture, turgor, no induration, No subcutaneous nodules, No rash, lesions, No ulcers Extremities: No digital cyanosis, No clubbing, Pedal pulses intact and symmetrical, Radial pulses intact and symmetrical, No calf tenderness Psychiatric: Alert and oriented to person, place and time, appropriate affect, intact judgement Neuro: Muscles Strength 5/5 in all 4 extremities, Sensation to light touch grossly present throughout, Cranial nerves II-XII grossly intact, no focal sensory deficits Results CBC & Chem 7: 04/17/20 22:43 04/18/20 12:07 Labs: Abnormal Lab Results - Last 24 Hours (Table) 04/17/20 04/17/20 04/17/20 Range/Units 22:27 22:43 22:43 Hgb 16.4 H (11.4-16.0) gm/dL Hct 47.9 H (34.0-46.0) % MCV 100.1 H (80.0-100.0) fL Sodium (137-145) mmol/L Chloride (98-107) mmol/L BUN (7-17) mg/dL Creatinine (0.52-1.04) mg/dL Glucose (74-99) mg/dL POC Glucose (mg/dL) 311 H (75-99) mg/dL Phosphorus (2.5-4.5) mg/dL Troponin I (0.000-0.034) ng/mL Albumin (3.5-5.0) g/dL Urine Protein 3+ H (Negative) Urine Glucose (UA) 3+ H (Negative) Urine Ketones Trace H (Negative) Urine Blood Moderate H (Negative) Urine RBC 6 H (0-5) /hpf Urine WBC 11 H (0-5) /hpf Hyaline Casts 29 H (0-2) /lpf Urine Mucus Rare H (None) /hpf 04/17/20 04/17/20 04/18/20 Range/Units 22:43 22:43 12:07 Hgb (11.4-16.0) gm/dL Hct (34.0-46.0) % MCV (80.0-100.0) fL Sodium 125 L 132 L (137-145) mmol/L Chloride 91 L (98-107) mmol/L BUN 45 H 40 H (7-17) mg/dL Creatinine 2.41 H 2.18 H (0.52-1.04) mg/dL Glucose 333 H 264 H (74-99) mg/dL POC Glucose (mg/dL) (75-99) mg/dL Phosphorus 4.6 H (2.5-4.5) mg/dL Troponin I 0.088 H* (0.000-0.034) ng/mL Albumin 3.4 L (3.5-5.0) g/dL Urine Protein (Negative) Urine Glucose (UA) (Negative) Urine Ketones (Negative) Urine Blood (Negative) Urine RBC (0-5) /hpf Urine WBC (0-5) /hpf Hyaline Casts (0-2) /lpf Urine Mucus (None) /hpf Thrombosis Risk Factor Assmnt - Choose All That Apply Each Factor Represents 1 point: Abnormal pulmonary function (COPD), Age 41-60 years Other Risk Factors: No Other congenital or acquired thrombophilia - If yes, enter type in comment: No Thrombosis Risk Factor Assessment Total Risk Factor Score: 2 Thrombosis Risk Factor Assessment Level: Low Risk Assessment and Plan Plan: Transient ischemic attack CT head reviewed, negative Order MRI of brain Neurology consult PT evaluation Diabetes mellitus, type II Resume lantus at 22 units daily SSI Chronic CKD 3 PVD with fem pop bypass Chronic systolic CHF EF 45-50% Carotid stenosis Hypertension Hyperlipidemia COPD Admitted to observation
[2020-04-18 16:17] LABS: Glucose,Whole Blood 280 mg/dL (75-99)
[2020-04-18] MEDS: SODIUM CHLORIDE 0.9% 1,000 ML IV SCH (17:40)
[2020-04-18] MEDS: INSULIN ASPART (NovoLOG) 100 UNIT/ML VIAL SQ SCH ×2 (17:40→20:43)
[2020-04-18] MEDS: ASPIRIN 81 MG PO SCH (17:43)
--- NOTE | 2020-04-18 18:29 | P.CNNES ---
History of Present Illness Consult date: 04/18/20 Requesting physician: Anurag Quezada Reason for Consult: TIA History of Present Illness: Patient is a 49-year-old female, came to the hospital last night at 10:15 PM by ambulance for evaluation of headaches and weakness on the left arm and left leg. Patient has history of cerebral aneurysm, with subarachnoid hemorrhage on 09/04/2019, aneurysm was clipped in [place]. 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 Patient has been doing well since surgery. Patient recovered very well from the subarachnoid hemorrhage and aneurysm clipping. She stayed in the hospital for couple months. After she was discharged, she has some physical therapy and recovered very well. She was not having any headach es. Patient symptoms started yesterday at 3 PM when she became weak in her left arm, was not able to grab anything with her left hand. Patient believes that her left leg was weak all the patient's sons declines it. No slurred speech or facial droop. At around 9 PM, she had a seizure type spell, in which her left arm was shaking, left side gave out. Patient started to fall, but her son was c lose to her, and grabbed her, and laid her in the bed and called EMS. There was no slurred speech or facial droop. Patient was brought to the hospital. Vital signs on arrival blood pressure 96/67, pulse rate [address] head showed clearing of the subarachnoid hemorrhage compared to old exam. There is dense metal aneurysm clipped apparently involving the anterior communicating artery or anterior cerebral artery. No acute intracranial abnormality. Chest x-ray showed no active cardiopulmonary disease. There is clearing of the pulmonary artery interstitial edema. EKG shows normal sinus rhythm. Patient had a repeat computed tomography scan of head performed this morning, which revealed interval craniotomy for aneurysm clipping in the anterior interhemispheric fissure. Resolution of fissural and intraventricular hemorrhage and a ventriculmegaly. No new bleeding. Patient's blood test shows normal WBC, hemoglobin 16.4, platelets 206, sodium 125, potassium 4.4, BUN 45, creatinine 2.41, hepatic panel normal, troponin 0.088, UA shows moderate blood, negative leukocyte esterase. Patient's last hemoglobin A1c 7.6 on 12/28/2019. Patient has history of chronic renal in sufficiency. While in the ER at around 11 PM, patient started having headache pointing to the right orbital, supraorbital region extending to the right temporal and the right occipital region, which she claims was very severe but rates it 6/10 (as she does not have any headaches otherwise). She had a repeat computed tomography scan of head performed, which again was negative for any subarachnoid hemorrhage. Patient was given morphine, and the headache resolved and couple hours. Patient states her headaches and focal symptoms on the left side has completely resolved. Patient takes Lamictal 25 mg twice a day, Lipitor 80 mg, used to be on Plavix since she has cardiac stent several years ago, but was stopped after her cerebral aneurysm clipping. At present she is not taking any antiplatelet medication. Patient's son states that in December 2019 she was appointed with a guardian, as patient was felt not able to make decisions for herself. Patient has history of diabetes since age 35. Also has hypertension. Patient has history of smoking 1 pack per day since she was age 15, still smokes a pack a day. Denies any alcohol. She does use marijuana. I spoke to patient's son Luís on the phone multiple times to clarify above information. Review of Systems As mentioned in detail in HPI. All other 14 point review of systems unremarkable. Denies any neck pain. Denies chest pain shortness of breath wheezing or cough. Denies abdominal pain nausea vomiting diarrhea. Patient does have chronic back pain with sciatica. 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 History of Any Multi-Drug Resistant Organisms: None Reported Past Surgical History: Appendectomy, Bowel Resection, Orthopedic Surgery, Tubal Ligation Additional Past Surgical History / Comment(s): Hx of colostomy and reversal, rotator cuff repair on Left, hx of fem/pop bypass. Colonoscopy 2012, cardiac catheterization Past Anesthesia/Blood Transfusion Reactions: No Reported Reaction Past Psychological History: Anxiety, Depression Smoking Status: Current every day smoker Past Alcohol Use History: None Reported Past Drug Use History: Marijuana - Past Family History Mother Family Medical History: Congestive Heart Failure (CHF), Diabetes Mellitus Brother(s) Additional Family Medical History / Comment(s): CABG Sister(s) Family Medical History: CVA/TIA Additional Family Medical History / Comment(s): Maternal aunt had breast cancer. Medications and Allergies Home Medications Medication Instructions Recorded Confirmed Type Ergocalciferol (Vitamin D2) 50,000 unit PO Q14D 01/21/15 04/18/20 History [Drisdol] Ferrous Sulfate [Iron (65 MG 325 mg PO BID 01/21/15 04/18/20 History Elemental)] Loratadine [Claritin] 10 mg PO DAILY 01/21/15 04/18/20 History lamoTRIgine [LaMICtal] 25 mg PO BID 01/21/15 04/18/20 History Atorvastatin [Lipitor] 80 mg PO HS 06/30/17 04/18/20 History Citalopram Hydrobromide [CeleXA] 20 mg PO DAILY 06/30/17 04/18/20 History Insulin Glargine,Hum.rec.anlog 22 units SQ HS 07/03/18 04/18/20 History [Basaglar Kwikpen U-100] allopurinoL [Zyloprim] 100 mg PO DAILY 08/30/18 04/18/20 History Umeclidinium [place] [Incruse 1 puff INHALATION RT-HS 10/08/18 04/18/20 History Ellipta] Insulin Lispro [Admelog] See Protocol SQ AC-TID 05/22/19 04/18/20 History Furosemide [Lasix] 20 mg PO BID 09/04/19 04/18/20 History Furosemide [Lasix] 40 mg PO BID 09/04/19 04/18/20 History Carvedilol [Coreg] 6.25 mg PO BID 04/11/20 04/18/20 History Isosorbide Mononitrate ER [Imdur] 30 mg PO DAILY 04/11/20 04/18/20 History traMADol HCl [Ultram] 50 mg PO Q8H PRN 04/11/20 04/18/20 History Ondansetron HCl [Zofran] 4 mg PO Q8H PRN 04/18/20 04/18/20 History Allergies Allergy/AdvReac Type Severity Reaction Status Date / Time bee venom protein (honey bee) Allergy Anaphylaxis Verified 04/18/20 07:14 Penicillins Allergy Rash/Hives Verified 04/18/20 07:14 Physical Examination - Vital Signs Vital Signs: Vital Signs Temp Pulse Resp BP Pulse Ox 04/18/20 07:00 98.6 F 92 29 H 122/62 97 04/18/20 06:50 71 18 141/91 97 04/18/20 06:00 92 20 179/100 96 04/18/20 05:00 65 20 118/75 97 04/18/20 04:32 87 22 116/72 97 04/18/20 04:05 76 18 111/82 97 04/18/20 03:00 77 19 107/76 98 04/18/20 02:02 75 19 133/86 97 04/18/20 01:00 97.7 F 79 18 117/79 98 04/18/20 00:10 84 18 141/91 98 04/17/20 23:25 80 19 103/78 100 04/17/20 22:19 98.0 F 99 18 96/67 100 Intake and Output 04/17/20 04/18/20 04/18/20 22:59 06:59 14:59 Other: Weight 61.235 kg On examination patient is a middle aged female, in no acute distress. Patient is alert and awake fairly well oriented. Speech and language functions are normal. Attention and concentration fund of knowledge is adequate. Detailed testing deferred. On cranial nerve exam pupils are round and reactive to light, visual britton are full to confrontation, extraocular muscles are intact without nystagmus. Face is symmetric, tongue protrudes to the midline. Palatal elevation and sensation normal, hearing and shoulder shrug normal. On muscle strength testing there is no pronator drift and the strength is normal in arms and legs distally and proximally. Reflexes are symmetric, trace to 1+ and plantars are withdrawal bilaterally. Sensory to touch is equal. No ataxia for [id number] testing. Tone and bulk of muscles normal. Gait deferred. Results - Laboratory Findings CBC and BMP: 04/17/20 22:43 04/18/20 12:07 Abnormal Lab Findings: Abnormal Labs 04/17/20 04/17/20 04/17/20 22:27 22:43 22:43 Hgb 16.4 H Hct 47.9 H MCV 100.1 H Sodium Chloride BUN Creatinine Glucose POC Glucose (mg/dL) 311 H Phosphorus Troponin I Albumin Urine Protein 3+ H Urine Glucose (UA) 3+ H Urine Ketones Trace H Urine Blood Moderate H Urine RBC 6 H Urine WBC 11 H Hyaline Casts 29 H Urine Mucus Rare H 04/17/20 04/17/20 22:43 22:43 Hgb Hct MCV Sodium 125 L Chloride 91 L BUN 45 H Creatinine 2.41 H Glucose 333 H POC Glucose (mg/dL) Phosphorus 4.6 H Troponin I 0.088 H* Albumin 3.4 L Urine Protein Urine Glucose (UA) Urine Ketones Urine Blood Urine RBC Urine WBC Hyaline Casts Urine Mucus Assessment and Plan Assessment: * Probable TIA, manifesting with left arm weakness, which now seems to have resolved. * Transient episode of left arm twitching, near-syncopal spell, rule out focal seizure. * History of ruptured cerebral aneurysm status post clipping 09/04/2019. Patient reports diagnosis of moyamoya disease. * Cephalgia, unclear cause. CT head was negative for subarachnoid hemorrhage although CT head can miss 5-10% cases. The headache has resolved. Possible due to TIA versus seizure * Diabetes * Hypertension * Chronic renal insufficiency. * Hyponatremia * Tobacco use * Coronary artery disease * Marijuana use. Plan: * Patient probably had a TIA. All neuro symptoms have resolved including headache. Current NIH stroke scale 0. * We will check MRI of the brain to evaluate for CVA, and MRA of the head to follow-up on the aneurysm, rule out moyamoya disease * If patient cannot have MRI due to aneurysm clipping, then we will perform Lumbar puncture to rule out subarachnoid hemorrhage, as 10% cases can be missed on computed tomography scan of the head. * Start aspirin 81 mg daily for stroke prevention. * Fasting a.m. lipid panel, hemoglobin A1c * Patient strongly recommended about tobacco cessation Time with Patient: Greater than 30 (Spent 30 minutes on the phone with patient's son Mr. Staley and coordinating care with patient.)
[2020-04-18] MEDS: IPRATROPIUM 0.5 MG/2.5 ML NEBU INHALATION SCH (19:19)
--- NOTE | 2020-04-18 19:20 | US ---
EXAMINATION TYPE: US carotid duplex BILAT DATE OF EXAM: 04/18/2020 COMPARISON: NONE CLINICAL HISTORY: TIA. EXAM MEASUREMENTS: RIGHT: Peak Systolic Velocity (PSV) cm/sec ----- Right CCA: 148 ----- Right ICA: 0 ----- Right ECA: 184 ICA/CCA ratio: 0 RIGHT: End Diastole cm/sec ----- Right CCA: 0 ----- Right ICA: 0 ----- Right ECA: 0 LEFT: Peak Systolic Velocity (PSV) cm/sec ----- Left CCA: 88.4 ----- Left ICA: 158 ----- Left ECA: 234 ICA/CCA ratio: 0.6 LEFT: End Diastole cm/sec ----- Left CCA: 19.5 ----- Left ICA: 37.9 ----- Left ECA: 11.5 VERTEBRALS (direction of flow): Right Vertebral: Retrograde Left Vertebral: Antegrade Rhythm: Normal Severe amount of plaque visualized bilaterally. Elevated velocities visualized in right ECA, right CC A, left ICA, left ECA. Retrograde flow visualized in right vertebral artery. Unable to obtain any chelo w in right ICA; appears to be completely occluded IMPRESSION: There is retrograde flow in the right vertebral artery that suggests right subclavian artery hemodyna concepcion stenosis. No flow evident in the right internal carotid artery which appears to be completely occluded. Elevated left side velocities suggestive of approximate 70% stenosis in the left internal carotid art oliver and external carotid artery. Moderate plaque formation on the left side carotid artery. Criteria for Assigning % of Stenosis / Diameter reduction (Estimation based on the indirect measurements of the internal carotid artery velocities (ICA PSV). 1. Normal (no stenosis)=ICA PSV < 125 cm/s: ratio < 2.0: ICA EDV<40 cm/s. 2. Less than 50% stenosis=ICA PSV < 125 cm/s: ratio < 2.0: ICA EDV<40 cm/s. 3. 50 to 69% stenosis=ICA PSV of 125 to 230 cm/s: ration 2.0 ? 4.0: ICA EDV 40-100 cm/s. 4. Greater than 70% stenosis to near occlusion= ICA PSV > 230 cm/s: ratio > 4.0: ICA EDV > 100 cm/s. 5. Near occlusion= ICA PSV velocities may be low or undetectable: variable ratio and ICA EDV. 6. Total occlusion=unable to detect flow.
[2020-04-18 20:17] LABS: Glucose,Whole Blood 364 mg/dL (75-99)
[2020-04-18] MEDS: FUROSEMIDE 40 MG TAB PO SCH (20:43)
[2020-04-18] MEDS: ATORVASTATIN 80 MG TAB PO SCH (20:43)
[2020-04-18] MEDS: FERROUS SULFATE 325 MG TAB PO SCH (20:43)
[2020-04-18] MEDS: INSULIN DETEMIR (LEVEMIR) 100 UNIT/ML SYR SQ SCH (21:01)
[2020-04-18] MEDS ORDERED: NICOTINE 7MG/24HR PATCH TRANSDERM STA (21:38)
[2020-04-18] MEDS: traMADol 50 MG TAB PO PRN (21:40)
[2020-04-19 03:29] LABS: Hemoglobin A1C 7.8 % (4.0-6.0)
[2020-04-19 06:15] LABS: Glucose,Whole Blood 138 mg/dL (75-99)
[2020-04-19] MEDS: INSULIN ASPART (NovoLOG) 100 UNIT/ML VIAL SQ SCH ×4 (06:55→20:51)
[2020-04-19] MEDS: carvediloL 6.25 MG TAB PO SCH ×2 (06:55→17:50)
[2020-04-19 08:04] LABS: Basophils # (A) 0.1 k/uL (0-0.2); Basophils % (A) 1 %; Eosinophils # (A) 0.4 k/uL (0-0.7); Eosinophils % (A) 6 %; HCT 43.3 % (34.0-46.0); HGB 14.2 gm/dL (11.4-16.0); Lymphocytes # (A) 1.9 k/uL (1.0-4.8); Lymphocytes % (A) 25 %; MCH 33.4 pg (25.0-35.0); MCHC 32.8 g/dL (31.0-37.0); MCV 101.8 fL (80.0-100.0); Macrocytosis Slight; Mean Platelet Volume 9.5; Monocytes # (A) 0.5 k/uL (0-1.0); Monocytes % (A) 6 %; Neutrophils # (A) 4.6 k/uL (1.3-7.7); Neutrophils % (A) 61 %; Platelet Count 169 k/uL (150-450); RBC 4.25 m/uL (3.80-5.40); RDW 15.9 % (11.5-15.5); WBC 7.5 k/uL (3.8-10.6)
[2020-04-19] MEDS: SODIUM CHLORIDE 0.9% 1,000 ML IV SCH ×3 (08:16→20:04)
[2020-04-19 08:19] LABS: Calcium 8.5 mg/dL (8.4-10.2); Magnesium 2.1 mg/dL (1.6-2.3); Potassium 4.1 mmol/L (3.5-5.1)
[2020-04-19] MEDS: IPRATROPIUM 0.5 MG/2.5 ML NEBU INHALATION SCH ×4 (10:00→19:44)
[2020-04-19] MEDS: ASPIRIN 81 MG PO SCH (11:01)
[2020-04-19] MEDS: allopurinoL 100 MG TAB PO SCH (11:01)
[2020-04-19] MEDS: LORATADINE 10 MG TAB PO SCH (11:01)
[2020-04-19] MEDS: CITALOPRAM HYDROBROMIDE 20 MG TAB PO SCH (11:02)
[2020-04-19] MEDS: lamoTRIgine 25 MG TAB PO SCH ×2 (11:02→20:05)
[2020-04-19] MEDS: FUROSEMIDE 40 MG TAB PO SCH ×2 (11:02→20:05)
[2020-04-19] MEDS: FERROUS SULFATE 325 MG TAB PO SCH ×2 (11:02→20:05)
[2020-04-19 11:56] LABS: Glucose,Whole Blood 132 mg/dL (75-99)
--- NOTE | 2020-04-19 14:15 | P.PN ---
Subjective Progress Note Date: 04/19/20 CHIEF COMPLAINT: Elevated troponin HISTORY OF PRESENT ILLNESS: 04/18/2020 This is a 49-year-old female with a past medical history significant for hypertension, hyperlipidemia, CVA, diabetes mellitus, COPD, carotid stenosis, and peripheral vascular disease. Patient also underwent aneurysm clipping in August 2019. Patient follows in the office with Dr. Becerril. We have been asked to see the patient in consultation for elevated troponin. Patient states she pr esented to the hospital secondary to left-sided weakness and a headache. She denies any chest pain or pressure. She denies any shortness of breath. 04/19/2020 Patient examined this morning at the bedside. She denies shortness of breath. She denies chest pain or pressure.. She currently denies headache. Echocardiogram revealed ejection fraction 30-35%. Patient's previous echocardiogram in 2018 revealed ejection fraction 45-50%. PHYSICAL EXAM: VITAL SIGNS: Reviewed. GENERAL: Well-developed in no acute distress. HEENT: Head is normocephalic. Pupils are equal, round. Sclerae anicteric. Mucous membranes of the mouth are moist. Neck supple. No JVD or thyromegaly LUNGS: Respirations even and unlabored. Lungs diminished. HEART: Regular rate and rhythm. S1 and S2 heard. Systolic murmur noted. ABDOMEN: Soft. Nondistended. Nontender. EXTREMITIES: Normal range of motion. No clubbing or cyanosis. Peripheral pulses intact. Trace bilateral lower extremity edema NEUROLOGIC: Awake and alert. Oriented x 3. ASSESSMENT: Left sided weakness Headache Elevated troponin, no evidence of acute coronary syndrome Mild to moderate nonobstructive coronary artery disease Chronic kidney disease Peripheral vascular disease with prior fem-pop bypass Chronic systolic congestive heart failure, EF 30-35 Cardiomyopathy, type unknown Carotid stenosis Hypertension Hyperlipidemia Diabetes mellitus, type II Prior TIA COPD PLAN: Discontinue Imdur Increase Coreg to 12.5 mg twice a day Patient to have further workup of cardiomyopathy on an outpatient basis She may follow up post discharge with Dr. Becerril We will sign off. Please reconsult if needed Nurse practitioner note has been reviewed by physician. Signing provider agrees with the documented findings, assessment, and plan of care. Objective - Vital Signs Vital signs: Vital Signs Temp 97.3 F L 04/19/20 04:00 Pulse 80 04/19/20 12:05 Resp 18 04/19/20 04:00 BP 153/87 04/19/20 04:00 Pulse Ox 98 04/19/20 04:00 Intake & Output 04/18/20 04/19/20 04/19/20 18:59 06:59 18:59 Intake Total 480 483 Output Total 300 600 Balance 180 -600 483 Weight 61.235 kg 62.1 kg Intake: Oral 480 483 Output: Urine 300 600 Other: Voiding Method Toilet Bedside Commode # Voids 1 - Labs CBC & Chem 7: 04/19/20 07:30 04/19/20 07:30 Labs: Abnormal Lab Results - Last 24 Hours (Table) 04/17/20 04/18/20 04/18/20 Range/Units 22:43 16:16 20:16 MCV (80.0-100.0) fL RDW (11.5-15.5) % Sodium (137-145) mmol/L Carbon Dioxide (22-30) mmol/L BUN (7-17) mg/dL Creatinine (0.52-1.04) mg/dL Glucose (74-99) mg/dL POC Glucose (mg/dL) 280 H 364 H (75-99) mg/dL Hemoglobin A1c 7.8 H (4.0-6.0) % Triglycerides (<150) mg/dL HDL Cholesterol (40-60) mg/dL 04/19/20 04/19/20 04/19/20 Range/Units 06:14 07:30 07:30 MCV 101.8 H (80.0-100.0) fL RDW 15.9 H (11.5-15.5) % Sodium 135 L (137-145) mmol/L Carbon Dioxide 35 H (22-30) mmol/L BUN 40 H (7-17) mg/dL Creatinine 2.47 H (0.52-1.04) mg/dL Glucose 107 H (74-99) mg/dL POC Glucose (mg/dL) 138 H (75-99) mg/dL Hemoglobin A1c (4.0-6.0) % Triglycerides 274 H (<150) mg/dL HDL Cholesterol 38 L (40-60) mg/dL 04/19/20 Range/Units 11:55 MCV (80.0-100.0) fL RDW (11.5-15.5) % Sodium (137-145) mmol/L Carbon Dioxide (22-30) mmol/L BUN (7-17) mg/dL Creatinine (0.52-1.04) mg/dL Glucose (74-99) mg/dL POC Glucose (mg/dL) 132 H (75-99) mg/dL Hemoglobin A1c (4.0-6.0) % Triglycerides (<150) mg/dL HDL Cholesterol (40-60) mg/dL
--- NOTE | 2020-04-19 14:35 | P.PN ---
Subjective Progress Note Date: 04/19/20 Principal diagnosis: left sided weakness Patient has not noted return of her symptoms. No new numbness or weakness. No headaches. No blurred or double vision. Objective - Vital Signs Vital signs: Vital Signs Temp 97.3 F L 04/19/20 04:00 Pulse 80 04/19/20 12:05 Resp 18 04/19/20 04:00 BP 153/87 04/19/20 04:00 Pulse Ox 98 04/19/20 04:00 Intake & Output 04/18/20 04/19/20 04/19/20 18:59 06:59 18:59 Intake Total 480 483 Output Total 300 600 Balance 180 -600 483 Weight 61.235 kg 62.1 kg Intake: Oral 480 483 Output: Urine 300 600 Other: Voiding Method Toilet Bedside Commode # Voids 1 - Labs CBC & Chem 7: 04/19/20 07:30 04/19/20 07:30 Labs: Abnormal Lab Results - Last 24 Hours (Table) 04/17/20 04/18/20 04/18/20 Range/Units 22:43 16:16 20:16 MCV (80.0-100.0) fL RDW (11.5-15.5) % Sodium (137-145) mmol/L Carbon Dioxide (22-30) mmol/L BUN (7-17) mg/dL Creatinine (0.52-1.04) mg/dL Glucose (74-99) mg/dL POC Glucose (mg/dL) 280 H 364 H (75-99) mg/dL Hemoglobin A1c 7.8 H (4.0-6.0) % Triglycerides (<150) mg/dL HDL Cholesterol (40-60) mg/dL 04/19/20 04/19/20 04/19/20 Range/Units 06:14 07:30 07:30 MCV 101.8 H (80.0-100.0) fL RDW 15.9 H (11.5-15.5) % Sodium 135 L (137-145) mmol/L Carbon Dioxide 35 H (22-30) mmol/L BUN 40 H (7-17) mg/dL Creatinine 2.47 H (0.52-1.04) mg/dL Glucose 107 H (74-99) mg/dL POC Glucose (mg/dL) 138 H (75-99) mg/dL Hemoglobin A1c (4.0-6.0) % Triglycerides 274 H (<150) mg/dL HDL Cholesterol 38 L (40-60) mg/dL 04/19/20 Range/Units 11:55 MCV (80.0-100.0) fL RDW (11.5-15.5) % Sodium (137-145) mmol/L Carbon Dioxide (22-30) mmol/L BUN (7-17) mg/dL Creatinine (0.52-1.04) mg/dL Glucose (74-99) mg/dL POC Glucose (mg/dL) 132 H (75-99) mg/dL Hemoglobin A1c (4.0-6.0) % Triglycerides (<150) mg/dL HDL Cholesterol (40-60) mg/dL Assessment and Plan Plan: Transient ischemic attack CT head reviewed, negative Order MRI of brain Neurology consult appreciated Aspirin started Carotid doppler showed more than 70% stenosis on the right side. Consult vascula r, d/w Dr Sheffield. PT evaluation Chronic systolic CHF Echo showing EF at 30-35%, newly decreased compared to last echo Cardiology discontinued imdur and increased coreg dose, planning outpatient work up for cardiomyopathy. Diabetes mellitus, type II Resume lantus at 22 units daily SSI Hyponatremia Likely due to dehydration, improving. Chronic CKD 3 PVD with fem pop bypass Hypertension Hyperlipidemia COPD Stable resume meds
--- NOTE | 2020-04-19 14:59 | EEG ---
ELECTROENCEPHALOGRAM REPORT DATE OF SERVICE: 06/20/2019 PREAMBLE: This is a 49-year-old female with history of aneurysm in September 2019, came to the hospital for possible seizure, versus TIA. EEG FINDINGS: This is a 21 channel routine EEG recording in a patient utilizing 10-20 international system with referential and bipolar montages. Background consists of well- developed, moderately well-regulated, mixed frequencies of 8 hertz alpha with some 4-6 hertz theta activity seen in bihemispheric region. There is near constant focal slowing in polymorphic delta range in the right frontal temporal region. Occasionally this delta activity became more rhythmic. No definitive epileptiform activity was seen otherwise. Photic driving response was not seen. Different stages of sleep were not seen. EKG rhythm lead revealed no definite arrhythmia. IMPRESSION: This is an abnormal EEG due to focal slowing involving the right frontal temporal region suggestive of focal cortical neural dysfunction, due to underlying structural abnormality. At times, this focal slowing becomes more rhythmic, that may indicate underlying cortical irritability and convulsive tendency. Suggest prolonged (24-hour EEG), or sleep-deprived EEG for further evaluation, as this study was limited because of significant myogenic activity. MMODL / IJN: [id number] / MTDD
[2020-04-19] MEDS: ISOSORBIDE MONONITRATE ER 30 MG TAB.ER.24H PO SCH (15:48)
[2020-04-19 16:50] LABS: Glucose,Whole Blood 167 mg/dL (75-99)
--- NOTE | 2020-04-19 19:14 | CONS ---
CONSULTATION This is a 49-year-old female, well known to me from the past. The patient had a history of nausea, vomiting, and she had some numbness on the left arm and left leg with complete recovery. The patient also had some history of nausea, vomiting, and the patient had complete stroke workup. Carotid ultrasound shows right carotid is totally occluded, left side 70%. CT of the brain shows no intracranial bleed. PAST MEDICAL HISTORY: Patient had aortobifem graft done by me in the past. The patient also had a craniotomy and she had a cerebral aneurysm which was clipped in [place]. History of COPD, diabetes mellitus, hypertension, peripheral vascular disease. The patient also had an appendectomy and bowel resection in the past. PHYSICAL EXAMINATION: Patient was seen in her room, lying comfortably in bed. NECK: Supple. Trachea central. CHEST: Clear. ABDOMEN: Soft. Femoral pulses are palpable. Patient has normal motor function upper and lower extremity. PLAN: This patient had a followup in my office in the past. She has chronic occlusion of the right internal carotid artery and left side is around 70% stenosis. The patient is scheduled to have a MRI of the brain. At this point, patient has chronic right carotid occlusion and her symptoms show no evidence of any other motor deficit. We will follow with you. We will wait for MRI report. MMODL / IJN: [id number] /
[2020-04-19] MEDS: ATORVASTATIN 80 MG TAB PO SCH (20:05)
[2020-04-19 20:20] LABS: Glucose,Whole Blood 186 mg/dL (75-99)
[2020-04-19] MEDS: INSULIN DETEMIR (LEVEMIR) 100 UNIT/ML SYR SQ SCH (20:52)
[2020-04-19 21:46] VITALS: RESP 18
--- NOTE | 2020-04-20 00:37 | P.PN ---
Subjective Progress Note Date: 04/19/20 Patient states she is feeling much better. Denies any numbness. No focal symptoms. Still having pressure headache over the right eyebrow which she rates 3-4/10. Objective - Vital Signs Vital signs: Vital Signs Temp 97.3 F L 04/19/20 04:00 Pulse 80 04/19/20 12:05 Resp 18 04/19/20 04:00 BP 153/87 04/19/20 04:00 Pulse Ox 98 04/19/20 04:00 Intake & Output 04/18/20 04/19/20 04/19/20 18:59 06:59 18:59 Intake Total 480 483 Output Total 300 600 Balance 180 -600 483 Weight 61.235 kg 62.1 kg Intake: Oral 480 483 Output: Urine 300 600 Other: Voiding Method Toilet Bedside Commode # Voids 1 - Exam Patient's mental status, speech and language functions are normal. Detail testing deferred. - Labs CBC & Chem 7: 04/19/20 07:30 04/19/20 07:30 Labs: Abnormal Lab Results - Last 24 Hours (Table) 04/17/20 04/18/20 04/18/20 Range/Units 22:43 16:16 20:16 MCV (80.0-100.0) fL RDW (11.5-15.5) % Sodium (137-145) mmol/L Carbon Dioxide (22-30) mmol/L BUN (7-17) mg/dL Creatinine (0.52-1.04) mg/dL Glucose (74-99) mg/dL POC Glucose (mg/dL) 280 H 364 H (75-99) mg/dL Hemoglobin A1c 7.8 H (4.0-6.0) % Triglycerides (<150) mg/dL HDL Cholesterol (40-60) mg/dL 04/19/20 04/19/20 04/19/20 Range/Units 06:14 07:30 07:30 MCV 101.8 H (80.0-100.0) fL RDW 15.9 H (11.5-15.5) % Sodium 135 L (137-145) mmol/L Carbon Dioxide 35 H (22-30) mmol/L BUN 40 H (7-17) mg/dL Creatinine 2.47 H (0.52-1.04) mg/dL Glucose 107 H (74-99) mg/dL POC Glucose (mg/dL) 138 H (75-99) mg/dL Hemoglobin A1c (4.0-6.0) % Triglycerides 274 H (<150) mg/dL HDL Cholesterol 38 L (40-60) mg/dL 04/19/20 Range/Units 11:55 MCV (80.0-100.0) fL RDW (11.5-15.5) % Sodium (137-145) mmol/L Carbon Dioxide (22-30) mmol/L BUN (7-17) mg/dL Creatinine (0.52-1.04) mg/dL Glucose (74-99) mg/dL POC Glucose (mg/dL) 132 H (75-99) mg/dL Hemoglobin A1c (4.0-6.0) % Triglycerides (<150) mg/dL HDL Cholesterol (40-60) mg/dL Assessment and Plan Assessment: * Probable TIA, manifesting with left arm weakness, which now seems to have resolved. * Probable focal seizure, left side of the body. EEG abnormal. * History of ruptured cerebral aneurysm status post clipping 09/04/2019. Patient reports diagnosis of moyamoya disease. * Cephalgia, unclear cause. CT head was negative for subarachnoid hemorrhage although CT head can miss 5-10% cases. The headache has resolved. Possible due to TIA versus seizure * Diabetes * Hypertension * Chronic renal insufficiency. * Hyponatremia * Tobacco use * Coronary artery disease * Marijuana use. Plan: * Patient probably had a TIA. All neuro symptoms have resolved including headache. Current NIH stroke scale 0. * Await MRI of the brain to evaluate for CVA, and MRA of the head to follow-up on the aneurysm, rule out moyamoya disease. Recommend follow-up with a neurosurgeon/neuro intervention, whoever performed aneurysm clipping. * Continue aspirin 81 mg daily for stroke prevention. * Fasting a.m. lipid panel showed cholesterol 176, LDL 83, HDL 38 and triglycerides 274. Continue statins. * Patient had an EEG performed, which revealed right frontal temporal slowing, suggestive of focal cortical neuronal dysfunction. At times this focal slowing becomes more rhythmic, that may indicate underlying cortical irritability and convulsive tendency. Suggest prolonged or sleep deprived EEG. Patient did have focal seizure noticed by her son. We will increase Lamictal to 50 mg twice a day for one week and then may increase to 100 mg twice a day. * Carotid Doppler showed age-related flow in the right vertebral artery that suggests right subclavian artery hemodynamic stenosis. No flow evident in the right ICA which appears completely occluded. 70% stenosis in the left ICA. Discussed with vascular surgeon. States right ICA occlusion is chronic. Left ICA stenosis is not critical at this time, and clinically asymptomatic (as symptoms were on the ipsilateral side). Patient needs aggressive stroke risk factor modification as mentioned below. No indication for endarterectomy at this time. Discussed with vascular surgeon about dual antiplatelet medication. Given patient's history of cerebral aneurysm and hemorrhage, will maintain on single antiplatelet agent aspirin 81 mg daily. If she has recurrent TIAs, only then will consider dual antiplatelets. * Hemoglobin A1c 7.8, suggest optimize diabetes to target A1c <7.0. * Patient strongly recommended about tobacco cessation. * Recommend follow-up with neurologist as outpatient for perhaps prolonged EEG, and consider optimizing patient of Lamictal if EEG continues to show epileptiform activity.
[2020-04-20] MEDS: traMADol 50 MG TAB PO PRN ×2 (05:03→17:00)
[2020-04-20] MEDS: SODIUM CHLORIDE 0.9% 1,000 ML IV SCH (05:05)
[2020-04-20] MEDS: MORPHINE SULFATE 4 MG/ML SYRINGE IVP PRN (05:32)
[2020-04-20 06:27] LABS: Glucose,Whole Blood 137 mg/dL (75-99)
[2020-04-20] MEDS: carvediloL 6.25 MG TAB PO SCH ×2 (06:37→16:57)
[2020-04-20] MEDS: INSULIN ASPART (NovoLOG) 100 UNIT/ML VIAL SQ SCH ×4 (06:37→20:30)
[2020-04-20] MEDS: IPRATROPIUM 0.5 MG/2.5 ML NEBU INHALATION SCH ×4 (07:49→19:46)
[2020-04-20] MEDS: FERROUS SULFATE 325 MG TAB PO SCH ×2 (08:24→20:31)
[2020-04-20] MEDS: allopurinoL 100 MG TAB PO SCH (08:24)
[2020-04-20] MEDS: lamoTRIgine 25 MG TAB PO SCH ×2 (08:24→20:31)
[2020-04-20] MEDS: CITALOPRAM HYDROBROMIDE 20 MG TAB PO SCH (08:24)
[2020-04-20] MEDS: LORATADINE 10 MG TAB PO SCH (08:24)
[2020-04-20] MEDS: ASPIRIN 81 MG PO SCH (08:24)
[2020-04-20] MEDS: FUROSEMIDE 40 MG TAB PO SCH ×2 (08:24→20:31)
--- NOTE | 2020-04-20 08:41 | P.PN ---
Progress Note - Text 49-year-old white female well known to me from the past patient to has been coming to the [facility] SHE HAD A ULTRASOUND DONE IN THE OFFICE IN THE PAST RIGHT SIDE IS TOTALLY OCCLUDED 8 patient had an episode of seizure and some weakness and numbness of the left arm leg with and leg with complete recovery no history of slurred speech no history of any motor deficit. Computed tomography scan showed no evidence of intracranial bleed patient had a recently craniotomy at [place]. Plan is continue with medical management and antiplatelet therapy patient scheduled to have MRI
[2020-04-20 11:40] LABS: Glucose,Whole Blood 85 mg/dL (75-99)
[2020-04-20 16:51] LABS: Glucose,Whole Blood 168 mg/dL (75-99)
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
[2020-04-20 19:53] LABS: Glucose,Whole Blood 179 mg/dL (75-99)
[2020-04-20] MEDS: INSULIN DETEMIR (LEVEMIR) 100 UNIT/ML SYR SQ SCH (20:31)
[2020-04-20] MEDS: ATORVASTATIN 80 MG TAB PO SCH (20:31)
[2020-04-21 06:11] LABS: Glucose,Whole Blood 92 mg/dL (75-99)
[2020-04-21] MEDS: INSULIN ASPART (NovoLOG) 100 UNIT/ML VIAL SQ SCH ×2 (06:23→12:07)
[2020-04-21] MEDS: carvediloL 6.25 MG TAB PO SCH (06:24)
[2020-04-21] MEDS: SODIUM CHLORIDE 0.9% 1,000 ML IV SCH ×2 (06:25→09:23)
[2020-04-21] MEDS: IPRATROPIUM 0.5 MG/2.5 ML NEBU INHALATION SCH ×2 (08:03→11:24)
[2020-04-21 08:07] VITALS: TEMP 98
[2020-04-21] MEDS: FUROSEMIDE 40 MG TAB PO SCH (08:08)
[2020-04-21] MEDS: lamoTRIgine 25 MG TAB PO SCH (08:08)
[2020-04-21] MEDS: ASPIRIN 81 MG PO SCH (08:08)
[2020-04-21] MEDS: LORATADINE 10 MG TAB PO SCH (08:08)
[2020-04-21] MEDS: FERROUS SULFATE 325 MG TAB PO SCH (08:08)
[2020-04-21] MEDS: allopurinoL 100 MG TAB PO SCH (08:08)
[2020-04-21] MEDS: CITALOPRAM HYDROBROMIDE 20 MG TAB PO SCH (08:08)
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
[2020-04-21 11:54] VITALS: BP 112/64; PULSE 64
[2020-04-21 12:04] LABS: Glucose,Whole Blood 97 mg/dL (75-99)
--- NOTE | 2020-04-21 14:04 | P.DS ---
Providers Date of admission: 04/18/20 01:15 Attending physician: Isadora Santiago DO Consults: 04/18/20 01:14 Consult Physician Routine Consulting Provider: Kai Ocampo Consult Reason/Comments: tia Do you want consulting provider notified?: Yes 04/19/20 07:57 Consult Physician Routine Consulting Provider: Jose A Sheffield Consult Reason/Comments: carotid stenosis Do you want consulting provider notified?: Yes Primary care physician: JW Perla Hospital Course: Admitting diagnoses: TIA Chronic systolic heart failure Type 2 diabetes mellitus insulin-dependent CK D PVD with fem-pop bypass Hypertension Hyperlipidemia COPD Discharge diagnoses: TIA Chronic systolic heart failure Type 2 diabetes mellitus insulin-dependent CK D PVD with fem-pop bypass Hypertension Hyperlipidemia COPD 49-year-old female with long-standing history of diabetes and multiple other medical problems as below presented to the emergency department because of left- sided weakness and numbness that lasted for 5 minutes. She denied having fevers but admitted to chills. Denied blurred or double vision. Denied any recurrent weakness or numbness. 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 Patient was told not to take any blood thinners after clipping of the aneurysm. Evaluation in the emergency department revealed normal CBC and coags, sodium 125, creatinine 2.41. BUN 45, glucose 333, troponin 0.088, no BNP 40,000. Head CT scan was unremarkable for acute ischemia or bleeding. It only showed aneurysm clipping that is old. CXR showed no acute disease. EKG showed old septal/anterior infarct with no acute St or T wave changes Patient was evaluated by neurology. MRI was ordered but was put on hold secondary to unknown identification of type of aneurysm clipping. Patient is to follow-up as an outpatient for an MRI with her neurologist in [place]. Initially patient's son was very adamant that she stay in the hospital until the MRI was completed. Plan of discharge was supposed to be today. Now, patient's son has had a change of heart and was demanding she be discharged today, as previously planned, because MRI was taking too long to be done. Otherwise, he would sign her AMA. CT of the brain was negative for acute intracranial hemorrhage or ischemic event. Carotid Doppler showed age-related flow in the right vertebral artery that suggests right subclavian artery hemodynamic stenosis. No flow evident in the right ICA which appears completely occluded. 70% stenosis in the left ICA. Discussed with vascular surgeon. States right ICA occlusion is chronic. Left ICA stenosis is not critical at this time, and clinically asymptomatic (as symptoms were on the ipsilateral side). Patient needs aggressive stroke risk factor modification. Smoking cessation highly counseled and advised. No indication for endarterectomy at this time per vascular surgery. Discussed with vascular surgeon about dual antiplatelet medication. Given patient's history of cerebral aneurysm and hemorrhage, will maintain on single antiplatelet agent aspirin 81 mg daily. If she has recurrent TIAs, only then will consider dual antiplatelets. Patient had an EEG performed, which revealed right frontal temporal slowing, suggestive of focal cortical neuronal dysfunction. At times this focal slowing becomes more rhythmic, that may indicate underlying cortical irritability and convulsive tendency. Suggest prolonged or sleep deprived EEG. Patient did have focal seizure noticed by her son. Lamictal was increased to 50 mg twice a day for one week and then may increase to 100 mg twice a day. Vitals temperature 98.0F orally heart rate 64 respiratory rate 18 blood pr essure 112/64 oxygen 90% on room air Follow-up with PCP in 2-7 days Follow-up with neurology within 1 week Follow-up with cardiology in 2-4 weeks Follow-up with vascular in 2-4 weeks Activity as tolerated Diet diabetic Smoking cessation highly advised Condition fair . Patient Condition at Discharge: Fair Plan - Discharge Summary Discharge Rx Participant: Yes New Discharge Prescriptions: New Aspirin 81 mg PO DAILY 30 Days #30 chew carvediloL [Coreg] 12.5 mg PO BID-W/MEALS 30 Days #60 tab lamoTRIgine [LaMICtal] 50 mg PO BID 30 Days #60 tab Continue Loratadine [Claritin] 10 mg PO DAILY Ferrous Sulfate [Iron (65 MG Elemental)] 325 mg PO BID Ergocalciferol (Vitamin D2) [Drisdol] 50,000 unit PO Q14D Citalopram Hydrobromide [CeleXA] 20 mg PO DAILY Atorvastatin [Lipitor] 80 mg PO HS Insulin Glargine,Hum.rec.anlog [Basaglar Kwikpen U-100] 22 units SQ HS allopurinoL [Zyloprim] 100 mg PO DAILY Umeclidinium [place] [Incruse Ellipta] 1 puff INHALATION RT-HS Insulin Lispro [Admelog] See Protocol SQ AC-TID Furosemide [Lasix] 40 mg PO BID Isosorbide Mononitrate ER [Imdur] 30 mg PO DAILY traMADol HCl [Ultram] 50 mg PO Q8H PRN PRN Reason: Severe Pain Ondansetron HCl [Zofran] 4 mg PO Q8H PRN PRN Reason: Nausea And Vomiting Discontinued lamoTRIgine [LaMICtal] 25 mg PO BID Furosemide [Lasix] 20 mg PO BID Carvedilol [Coreg] 6.25 mg PO BID Discharge Medication List Ergocalciferol (Vitamin D2) [Drisdol] 50,000 unit PO Q14D 01/21/15 [History] Ferrous Sulfate [Iron (65 MG Elemental)] 325 mg PO BID 01/21/15 [History] Loratadine [Claritin] 10 mg PO DAILY 01/21/15 [History] Atorvastatin [Lipitor] 80 mg PO HS 06/30/17 [History] Citalopram Hydrobromide [CeleXA] 20 mg PO DAILY 06/30/17 [History] Insulin Glargine,Hum.rec.anlog [Basaglar Kwikpen U-100] 22 units SQ HS 07/03/18 [History] allopurinoL [Zyloprim] 100 mg PO DAILY 08/30/18 [History] Umeclidinium [place] [Incruse Ellipta] 1 puff INHALATION RT-HS 10/08/18 [History] Insulin Lispro [Admelog] See Protocol SQ AC-TID 05/22/19 [History] Furosemide [Lasix] 40 mg PO BID 09/04/19 [History] Isosorbide Mononitrate ER [Imdur] 30 mg PO DAILY 04/11/20 [History] traMADol HCl [Ultram] 50 mg PO Q8H PRN 04/11/20 [History] Ondansetron HCl [Zofran] 4 mg PO Q8H PRN 04/18/20 [History] Aspirin 81 mg PO DAILY 30 Days #30 chew 04/21/20 [Rx] carvediloL [Coreg] 12.5 mg PO BID-W/MEALS 30 Days #60 tab 04/21/20 [Rx] lamoTRIgine [LaMICtal] 50 mg PO BID 30 Days #60 tab 04/21/20 [Rx] Follow up Appointment(s)/Referral(s): Ananda Becerril MD [STAFF PHYSICIAN] - 1 Week Cherelle Valadez NPC [Primary Care Provider] - 1-2 days Discharge Disposition: HOME WITH HOME HEALTH SERVICES
[2020-04-21] MEDS ORDERED: FAMOTIDINE 20 MG TAB PO SCH (21:00)
--- NOTE | 2020-04-24 03:55 | CDI ---
Documentation Clarification Form Date: 04/24/20 From: Mike Mckinney Phone: f you have a question about this query, please contact Ruby Resendiz, Patient Assistant at [phone] between 8am and 5pm. Admit Date: 04/18/2020 01:15:00 AM Patient Name: Chandni Her Visit Number: [id number] Discharge Date: 04/21/2020 02:36:00 PM ATTENTION: The Clinical Documentation Specialists (CDI) and [facility] Coding Staff appreciate your assistance in clarifying documentation. Please respond to the clarification below the line at the bottom and electronically sign. The CDI & [facility] Coding staff will review the response and follow-up if needed. Please note: Queries are made part of the Legal Health Record. If you have any questions, please contact the author of this message via ITS. Dr. Kari Lugo DO., The patients principal diagnosis has not been clearly identified and requires clarification. She presented with the left- sided weakness and numbness that lasted for 5 minutes History/Risk factors: DM, HTN, Cardiomyopathy Radiology findings:Interval craniotomy for aneurysm clipping in the anterior interhemispheric fissure.Resolution of fissural and intraventricular hemorrhage and of ventriculomegaly.No new bleeding. Vital Signs: Temperature 98.0 F Pulse Rate 99 80 84 Respiratory 18 19 18 Rate Blood Pressure 96/67 103/78 141/91 O2 Sat by Pulse 100 100 98 Oximetry Other Clinical Indicators: Admitted with TIA No flow evident in the right ICA which appears completely occluded.70% stenosis in the left ICA. Discussed with vascular surgeon.States right ICA occlusion is chronic Left ICA stenosis is not critical at this time, and clinically asymptomatic (as symptoms were on the ipsilateral side). In your professional opinion, can you please clarify which diagnosis, after study, accounted for the patients presenting symptoms and was the reason chiefly responsible for the admission? TIA related to carotid artery stenosis(70% ICA stenosis) TIA not related to carotid stenosis TIA not related to carotid stenosis MTDD
== END 2020-04-21 14:36 | disposition home or self-care (01) | DRG 69 ==
LOC: EC 22:17 → EEVIPCON 22:17 → 3SCARD 04-18 01:15
PROVIDERS: ADMIT Internal Medicine; ATTEND Internal Medicine
DX: G45.9 Transient cerebral ischemic attack, unspecified (principal); E87.1 Hypo-osmolality and hyponatremia; I13.0 Hypertensive heart and chronic kidney disease with heart failure and stage 1 through stage 4 chronic kidney disease, or unspecified chronic kidney disease; I42.9 Cardiomyopathy, unspecified; I50.42 Chronic combined systolic (congestive) and diastolic (congestive) heart failure; I67.5 Moyamoya disease; E11.51 Type 2 diabetes mellitus with diabetic peripheral angiopathy without gangrene; E11.22 Type 2 diabetes mellitus with diabetic chronic kidney disease; E78.5 Hyperlipidemia, unspecified; E86.0 Dehydration; F12.90 Cannabis use, unspecified, uncomplicated; F17.210 Nicotine dependence, cigarettes, uncomplicated; F32.9 Major depressive disorder, single episode, unspecified; F41.9 Anxiety disorder, unspecified; I25.10 Atherosclerotic heart disease of native coronary artery without angina pectoris; I65.23 Occlusion and stenosis of bilateral carotid arteries; I67.1 Cerebral aneurysm, nonruptured; J44.9 Chronic obstructive pulmonary disease, unspecified; N18.30 Chronic kidney disease, stage 3 unspecified; R56.9 Unspecified convulsions; Z79.4 Long term (current) use of insulin; Z79.82 Long term (current) use of aspirin; Z79.899 Other long term (current) drug therapy; Z80.3 Family history of malignant neoplasm of breast; I25.2 Old myocardial infarction; Z82.49 Family history of ischemic heart disease and other diseases of the circulatory system; Z83.3 Family history of diabetes mellitus; Z95.5 Presence of coronary angioplasty implant and graft; Z86.79 Personal history of other diseases of the circulatory system; Z88.0 Allergy status to penicillin; Z91.030 Bee allergy status; Z98.51 Tubal ligation status; Z90.49 Acquired absence of other specified parts of digestive tract; Z98.890 Other specified postprocedural states
CPT/HCPCS: 36415; 70450; 71046; 80048; 80053; 80061; 81001; 83036; 83735; 83880; 84100; 84484; 85025; 85610; 85730; 93005; 93306; 93880; 94640; 95816; 96361; 96374; 96375; 96376; 99285

== ENCOUNTER → 2020-08-14 | Outpatient (CLI) | payer OTHER | END | disposition home or self-care (01) | LOC: LABWHC1 08-12 14:36 | PROVIDERS: ATTEND Internal Medicine | DX: Z20.822 Contact with and (suspected) exposure to COVID-19 (principal) | CPT/HCPCS: U0003; C9803 ==

== ENCOUNTER 2021-02-13 17:01 | Emergency (ER) | payer OTHER ==
[2021-02-13 19:27] LABS: Glucose,Whole Blood 494 mg/dL (75-99)
[2021-02-13] MEDS ORDERED: SODIUM CHLORIDE 0.9% 1,000 ML IV STA (21:19)
[2021-02-13] MEDS ORDERED: MORPHINE SULFATE 4 MG/ML SYRINGE IV STA (21:19)
[2021-02-13 22:00] LABS: Basophils # (A) 0.1 k/uL (0-0.2); Basophils % (A) 1 %; Eosinophils # (A) 0.4 k/uL (0-0.7); Eosinophils % (A) 4 %; HCT 45.3 % (34.0-46.0); HGB 15.5 gm/dL (11.4-16.0); Lymphocytes # (A) 3.2 k/uL (1.0-4.8); Lymphocytes % (A) 36 %; MCH 33.8 pg (25.0-35.0); MCHC 34.2 g/dL (31.0-37.0); MCV 98.7 fL (80.0-100.0); Mean Platelet Volume 10.7; Monocytes # (A) 0.3 k/uL (0-1.0); Monocytes % (A) 4 %; Neutrophils # (A) 4.8 k/uL (1.3-7.7); Neutrophils % (A) 54 %; Platelet Count 160 k/uL (150-450); RBC 4.59 m/uL (3.80-5.40); RDW 12.1 % (11.5-15.5); WBC 8.9 k/uL (3.8-10.6)
[2021-02-13 22:04] LABS: Appearance,Urine Clear (Clear); Bacteria,Urine Rare /hpf; Bilirubin,Urine Negative (Negative); Blood,Urine Trace (Negative); Color,Urine Light Yellow; Glucose,Urine (UA) 4+ (Negative); Ketones,Urine Negative (Negative); Leukocyte Esterase,Urine Small (Negative); Mucus,Urine Rare /hpf; Nitrite,Urine Negative (Negative); Protein,Urine 2+ (Negative); RBC,Urine 1 /hpf (0-5); Specific Gravity,Urine 1.009 (1.001-1.035); Squamous Epithelial Cell,Urine 5 /hpf (0-4); Urobilinogen,Urine <2.0 mg/dL (<2.0); WBC,Urine 5 /hpf (0-5)
[2021-02-13 22:11] LABS: ALT 13 U/L (4-34); AST 18 U/L (14-36); African American GFR (CKD) 23 (>60 ml/min/1.73 sqM); Albumin 3.9 g/dL (3.5-5.0); Alkaline Phosphatase 119 U/L (38-126); Anion Gap 10 mmol/L; Blood Urea Nitrogen 37 mg/dL (7-17); Calcium 9.6 mg/dL (8.4-10.2); Carbon Dioxide 25 mmol/L (22-30); Chloride 102 mmol/L (98-107); Glucose 431 mg/dL (74-99); Magnesium 2.2 mg/dL (1.6-2.3); Non-African American GFR(CKD) 20 (>60 ml/min/1.73 sqM); Potassium 4.3 mmol/L (3.5-5.1); Sodium 137 mmol/L (137-145); Total Bilirubin 0.6 mg/dL (0.2-1.3); Total Protein 6.3 g/dL (6.3-8.2)
[2021-02-13] MEDS ORDERED: INSULIN REGULAR 100 UNIT/ML VIAL (IM/SQ) SQ ONE (22:24)
[2021-02-13 22:59] LABS: Glucose,Whole Blood 370 mg/dL (75-99)
--- NOTE | 2021-02-13 23:15 | ED ---
General Adult HPI - General Chief complaint: Recheck/Abnormal Lab/Rx Stated complaint: High Sugar Time Seen by Provider: 02/13/21 19:20 Source: patient Mode of arrival: ambulatory Limitations: no limitations - History of Present Illness Initial comments: Patient is a 50-year-old female with past medical history of diabetes, hypertension, hyperlipidemia, chronic kidney disease who presents emergency Department with reported high blood sugars. Patient states that her primary care doctor went on vacation and she ran out of her prescriptions for her me dications as well as her testing supplies. States that she has not taken her medications and close to 2 weeks. Patient is insulin-dependent. Patient admits to some chronic right-sided temporal pain from previous surgery however denies any new complaints. No nausea or vomiting. No chest pain or shortness of breath. No fevers or chills. She saw her primary care doctor today who called in prescriptions for all of her medications however told her she had to go to the emergency room in order to get her glucose down first. No other allevating, precipitating or modifying factors - Related Data Home Medications Medication Instructions Recorded Confirmed Loratadine [Claritin] 10 mg PO DAILY 01/21/15 02/13/21 Atorvastatin [Lipitor] 80 mg PO HS 06/30/17 02/13/21 Insulin Lispro [Admelog] See Protocol SQ AC-TID 05/22/19 02/13/21 Furosemide [Lasix] 40 mg PO BID 09/04/19 02/13/21 Isosorbide Mononitrate ER [Imdur] 30 mg PO DAILY 04/11/20 02/13/21 Ondansetron HCl [Zofran] 4 mg PO Q8H PRN 04/18/20 02/13/21 Albuterol Nebulized [Ventolin 2.5 mg INHALATION RT-Q6H PRN 02/13/21 02/13/21 Nebulized] Albuterol Sulfate [Proair Hfa] 2 puff INHALATION RT-Q6H PRN 02/13/21 02/13/21 Carvedilol [Coreg] 25 mg PO BID-W/MEALS 02/13/21 02/13/21 Cholecalciferol [Vitamin D3 (25 50 mcg PO DAILY 02/13/21 02/13/21 Mcg = 1000 Iu)] Folic Acid 0.4 mg PO DAILY 02/13/21 02/13/21 Furosemide [Lasix] 20 mg PO BID 02/13/21 02/13/21 Insulin Glargine,Hum.rec.anlog 22 unit SQ DAILY 02/13/21 02/13/21 [Lantus Solostar Pen] Ipratropium-Albuterol Nebulize 3 ml INHALATION RT-QID PRN 02/13/21 02/13/21 [Duoneb 0.5 mg-3 mg/3 ml Soln] Nicotine 21Mg/24Hr Patch [Habitrol] 1 patch TRANSDERM DAILY PRN 02/13/21 02/13/21 Previous Rx's Medication Instructions Recorded Aspirin 81 mg PO DAILY 30 Days #30 chew 04/21/20 Allergies Allergy/AdvReac Type Severity Reaction Status Date / Time bee venom protein (honey bee) Allergy Anaphylaxis Verified 02/13/21 19:23 Penicillins Allergy Rash/Hives Verified 02/13/21 19:23 Review of Systems ROS Statement: Those systems with pertinent positive or pertinent negative responses have been documented in the HPI. ROS Other: All systems not noted in ROS Statement are negative. 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 History of Any Multi-Drug Resistant Organisms: None Reported Past Surgical History: Appendectomy, Bowel Resection, Orthopedic Surgery, Tubal Ligation Additional Past Surgical History / Comment(s): Hx of colostomy and reversal, rotator cuff repair on Left, hx of fem/pop bypass. Colonoscopy 2012, cardiac catheterization Past Anesthesia/Blood Transfusion Reactions: No Reported Reaction Past Psychological History: Anxiety, Depression Smoking Status: Current every day smoker Past Alcohol Use History: None Reported Past Drug Use History: Marijuana - Past Family History Mother Family Medical History: Congestive Heart Failure (CHF), Diabetes Mellitus Brother(s) Additional Family Medical History / Comment(s): CABG Sister(s) Family Medical History: CVA/TIA Additional Family Medical History / Comment(s): Maternal aunt had breast cancer. General Exam Limitations: no limitations General appearance: alert, in no apparent distress Head exam: Present: atraumatic, normocephalic, normal inspection Eye exam: Present: normal appearance, PERRL, EOMI. Absent: scleral icterus, conjunctival injection, periorbital swelling ENT exam: Present: normal exam, mucous membranes moist Neck exam: Present: normal inspection. Absent: tenderness, meningismus, lymphadenopathy Respiratory exam: Present: normal lung sounds bilaterally. Absent: respiratory distress, wheezes, rales, rhonchi, stridor Cardiovascular Exam: Present: regular rate, normal rhythm, normal heart sounds. Absent: systolic murmur, diastolic murmur, rubs, gallop, clicks GI/Abdominal exam: Present: soft, normal bowel sounds. Absent: distended, tenderness, guarding, rebound, rigid Extremities exam: Present: normal inspection, full ROM, normal capillary refill. Absent: tenderness, pedal edema, joint swelling, calf tenderness Back exam: Present: normal inspection Neurological exam: Present: alert, oriented X3, CN II-XII intact Psychiatric exam: Present: normal affect, normal mood Skin exam: Present: warm, dry, intact, normal color. Absent: rash Course Vital Signs 02/13/21 02/13/21 02/13/21 19:19 22:49 23:29 Temperature 97.4 F L 98.0 F Pulse Rate 66 67 72 Respiratory 17 18 20 Rate Blood Pressure 198/80 139/76 126/56 O2 Sat by Pulse 99 99 98 Oximetry EKG Findings - EKG Comments: EKG Findings:: EKG demonstrates a sinus rhythm with a ventricular rate of 60. MT interval 182. QRS 96. QTC of 494. No acute ST segment elevations or depressions concerning for ischemic changes Medical Decision Making - Medical Decision Making Upon arrival patient is placed into room 15. Accu-Chek is obtained of the patient's blood sugar is 494. IV is established and she is given a liter bolus of normal saline. Repeat evaluation demonstrates the patient's blood glucose h as subsequently improved to 430 and then 370. She is given 10 units of insulin after her boluses finished. She has no signs of DKA at this time. Patient will be discharged home. Reports she already has prescriptions for all of her medications after todays appointment with her PCP. She needs to start taking her medications as directed, follow up primary care doctor. Return to the emergency room for any new worsening symptoms. Patient was discharged home in stable condition - Lab Data Result diagrams: 02/13/21 21:50 02/13/21 21:50 Lab Results 02/13/21 02/13/21 02/13/21 Range/Units 19:24 21:50 21:50 WBC 8.9 (3.8-10.6) k/uL RBC 4.59 (3.80-5.40) m/uL Hgb 15.5 (11.4-16.0) gm/dL Hct 45.3 (34.0-46.0) % MCV 98.7 (80.0-100.0) fL MCH 33.8 (25.0-35.0) pg MCHC 34.2 (31.0-37.0) g/dL RDW 12.1 (11.5-15.5) % Plt Count 160 (150-450) k/uL MPV 10.7 Neutrophils % 54 % Lymphocytes % 36 % Monocytes % 4 % Eosinophils % 4 % Basophils % 1 % Neutrophils # 4.8 (1.3-7.7) k/uL Lymphocytes # 3.2 (1.0-4.8) k/uL Monocytes # 0.3 (0-1.0) k/uL Eosinophils # 0.4 (0-0.7) k/uL Basophils # 0.1 (0-0.2) k/uL Sodium (137-145) mmol/L Potassium (3.5-5.1) mmol/L Chloride (98-107) mmol/L Carbon Dioxide (22-30) mmol/L Anion Gap mmol/L BUN (7-17) mg/dL Creatinine (0.52-1.04) mg/dL Est GFR (CKD-EPI)AfAm (>60 ml/min/1.73 sqM) Est GFR (CKD-EPI)NonAf (>60 ml/min/1.73 sqM) Glucose (74-99) mg/dL POC Glucose (mg/dL) 494 H (75-99) mg/dL POC Glu [employer] ID Delio Rosales Nicole Plasma Lactic Acid Tres (0.7-2.0) mmol/L Calcium (8.4-10.2) mg/dL Magnesium (1.6-2.3) mg/dL Total Bilirubin (0.2-1.3) mg/dL AST (14-36) U/L ALT (4-34) U/L Alkaline Phosphatase (38-126) U/L Total Protein (6.3-8.2) g/dL Albumin (3.5-5.0) g/dL Urine Color Light Yellow Urine Appearance Clear (Clear) Urine pH 6.0 (5.0-8.0) Ur Specific [place] 1.009 (1.001-1.035) Urine Protein 2+ H (Negative) Urine Glucose (UA) 4+ H (Negative) Urine Ketones Negative (Negative) Urine Blood Trace H (Negative) Urine Nitrite Negative (Negative) Urine Bilirubin Negative (Negative) Urine Urobilinogen <2.0 (<2.0) mg/dL Ur Leukocyte Esterase Small H (Negative) Urine RBC 1 (0-5) /hpf Urine WBC 5 (0-5) /hpf Ur Squamous Epith Cells 5 H (0-4) /hpf Urine Bacteria Rare H (None) /hpf Urine Mucus Rare H (None) /hpf Acetone, Qual (Negative) 02/13/21 02/13/21 02/13/21 Range/Units 21:50 21:50 22:57 WBC (3.8-10.6) k/uL RBC (3.80-5.40) m/uL Hgb (11.4-16.0) gm/dL Hct (34.0-46.0) % MCV (80.0-100.0) fL MCH (25.0-35.0) pg MCHC (31.0-37.0) g/dL RDW (11.5-15.5) % Plt Count (150-450) k/uL MPV Neutrophils % % Lymphocytes % % Monocytes % % Eosinophils % % Basophils % % Neutrophils # (1.3-7.7) k/uL Lymphocytes # (1.0-4.8) k/uL Monocytes # (0-1.0) k/uL Eosinophils # (0-0.7) k/uL Basophils # (0-0.2) k/uL Sodium 137 (137-145) mmol/L Potassium 4.3 (3.5-5.1) mmol/L Chloride 102 (98-107) mmol/L Carbon Dioxide 25 (22-30) mmol/L Anion Gap 10 mmol/L BUN 37 H (7-17) mg/dL Creatinine 2.66 H (0.52-1.04) mg/dL Est GFR (CKD-EPI)AfAm 23 (>60 ml/min/1.73 sqM) Est GFR (CKD-EPI)NonAf 20 (>60 ml/min/1.73 sqM) Glucose 431 H (74-99) mg/dL POC Glucose (mg/dL) 370 H (75-99) mg/dL POC Glu [employer] ID Willing, Kaia Plasma Lactic Acid Tres 0.8 (0.7-2.0) mmol/L Calcium 9.6 (8.4-10.2) mg/dL Magnesium 2.2 (1.6-2.3) mg/dL Total Bilirubin 0.6 (0.2-1.3) mg/dL AST 18 (14-36) U/L ALT 13 (4-34) U/L Alkaline Phosphatase 119 (38-126) U/L Total Protein 6.3 (6.3-8.2) g/dL Albumin 3.9 (3.5-5.0) g/dL Urine Color Urine Appearance (Clear) Urine pH (5.0-8.0) Ur Specific [place] (1.001-1.035) Urine Protein (Negative) Urine Glucose (UA) (Negative) Urine Ketones (Negative) Urine Blood (Negative) Urine Nitrite (Negative) Urine Bilirubin (Negative) Urine Urobilinogen (<2.0) mg/dL Ur Leukocyte Esterase (Negative) Urine RBC (0-5) /hpf Urine WBC (0-5) /hpf Ur Squamous Epith Cells (0-4) /hpf Urine Bacteria (None) /hpf Urine Mucus (None) /hpf Acetone, Qual Negative (Negative) Disposition Clinical Impression: Hyperglycemia due to diabetes mellitus Disposition: HOME SELF-CARE Condition: Stable Instructions (If sedation given, give patient instructions): Diabetic Hyperglycemia (ED) Additional Instructions: Please take your medications as directed. Follow up with the primary care doctor in 2-4 days if needed for re-evaluation. Return to the emergency room for any new or worsening symptoms Is patient prescribed a controlled substance at d/c from ED?: No Referrals: Catalina Vivas MD [Primary Care Provider] - 1-2 days Time of Disposition: 23:15
[2021-02-13 23:32] VITALS: BP 126/56; PULSE 72; RESP 20; TEMP 98
== END 2021-02-13 23:30 | disposition home or self-care (01) ==
LOC: EC 17:01
DX: E11.65 Type 2 diabetes mellitus with hyperglycemia (principal); R51.9 Headache, unspecified; J44.9 Chronic obstructive pulmonary disease, unspecified; I13.0 Hypertensive heart and chronic kidney disease with heart failure and stage 1 through stage 4 chronic kidney disease, or unspecified chronic kidney disease; N18.9 Chronic kidney disease, unspecified; I50.9 Heart failure, unspecified; E78.5 Hyperlipidemia, unspecified; E11.22 Type 2 diabetes mellitus with diabetic chronic kidney disease; F17.200 Nicotine dependence, unspecified, uncomplicated; Z79.4 Long term (current) use of insulin; Z88.0 Allergy status to penicillin; Z91.018 Allergy to other foods; Z79.899 Other long term (current) drug therapy; Z86.73 Personal history of transient ischemic attack (TIA), and cerebral infarction without residual deficits
CPT/HCPCS: 36415; 93005; 80053; 82009; 83605; 83735; 85025; 81001; 99284; 96374; 96361; 96372; J2270

== ENCOUNTER 2021-04-06 18:18 | Emergency (ER) | payer OTHER ==
[2021-04-06] MEDS ORDERED: ONDANSETRON 4 MG/2 ML VIAL IVP STA (18:43)
[2021-04-06] MEDS ORDERED: MORPHINE SULFATE 2 MG/ML SYRINGE IVP STA (18:43)
[2021-04-06] MEDS ORDERED: SODIUM CHLORIDE 0.9% 1,000 ML IV STA (18:43)
--- NOTE | 2021-04-06 19:06 | XR ---
EXAMINATION TYPE: XR KUB DATE OF EXAM: 04/06/2021 COMPARISON: NONE HISTORY: Vomiting TECHNIQUE: 2 views FINDINGS: Bowel gas pattern is normal. There is no sign of intestinal obstruction or pneumoperitoneum . Fecal pattern is normal. There is no evidence of a mass. There are no pathologic calcifications ove r the kidneys. Lung bases are clear. There is some mild vascular calcification. There are clips at th e right femoral artery. IMPRESSION: Nonacute abdomen.
[2021-04-06 19:16] LABS: Basophils % (A) 0 %; Eosinophils # (A) 0.1 k/uL (0-0.7); Eosinophils % (A) 1 %; HCT 40.9 % (34.0-46.0); HGB 14.2 gm/dL (11.4-16.0); Lymphocytes # (A) 2.8 k/uL (1.0-4.8); Lymphocytes % (A) 17 %; MCH 32.7 pg (25.0-35.0); MCHC 34.7 g/dL (31.0-37.0); Mean Platelet Volume 10.1; Monocytes # (A) 0.7 k/uL (0-1.0); Monocytes % (A) 5 %; Neutrophils # (A) 12.8 k/uL (1.3-7.7); Neutrophils % (A) 77 %; Platelet Count 183 k/uL (150-450); RBC 4.35 m/uL (3.80-5.40); RDW 12.9 % (11.5-15.5); WBC 16.6 k/uL (3.8-10.6)
[2021-04-06 19:20] LABS: Albumin 4.2 g/dL (3.5-5.0); Calcium 9.6 mg/dL (8.4-10.2); Potassium 4.3 mmol/L (3.5-5.1); Total Protein 6.8 g/dL (6.3-8.2)
--- NOTE | 2021-04-06 19:30 | ED ---
Abdominal Pain HPI - General Chief Complaint: Abdominal Pain Stated Complaint: Constipation,Nausea,Vomiting Time Seen by Provider: 04/06/21 18:21 Source: family, EMS Mode of arrival: EMS Limitations: no limitations - History of Present Illness Initial Comments: 50 year-old female patient presents to the emergency department for evaluation of vomiting and left sided chest pain. States she has been vomiting for the last two days. States she had a hard bowel movement yesterday, unable to have BM today. She states chest pain has been present all day. Denies radiation to her back, neck, or arms. Reports some shortness of breath, states history of COPD, but this feels somewhat worse. She denies cough or congestion. Denies fever but has been chilled. Denies hematochezia, melena, or hematemesis. Does have history of multiple abdominal surgeries including bowel resection, colostomy with reversal, and appendectomy. Denies taking any medications for her symptoms. - Related Data Home Medications Medication Instructions Recorded Confirmed Atorvastatin [Lipitor] 80 mg PO HS 06/30/17 04/06/21 Isosorbide Mononitrate ER [Imdur] 30 mg PO DAILY 04/11/20 04/06/21 Ondansetron HCl [Zofran] 4 mg PO Q8H PRN 04/18/20 04/06/21 Albuterol Nebulized [Ventolin 2.5 mg INHALATION RT-TID PRN 02/13/21 04/06/21 Nebulized] Carvedilol [Coreg] 25 mg PO BID-W/MEALS 02/13/21 04/06/21 Cholecalciferol [Vitamin D3 (25 50 mcg PO DAILY 02/13/21 04/06/21 Mcg = 1000 Iu)] Folic Acid 0.4 mg PO DAILY 02/13/21 04/06/21 Insulin Glargine,Hum.rec.anlog 11 unit SQ HS 02/13/21 04/06/21 [Lantus Solostar Pen] Acetaminophen Tab [Tylenol Tab] 1,000 mg PO Q6HR PRN 04/06/21 04/06/21 Citalopram Hydrobromide [CeleXA] 20 mg PO DAILY 04/06/21 04/06/21 Previous Rx's Medication Instructions Recorded Aspirin 81 mg PO DAILY 30 Days #30 chew 04/21/20 Ondansetron [Zofran ODT] 4 mg PO Q8HR PRN #10 tab 04/06/21 Allergies Allergy/AdvReac Type Severity Reaction Status Date / Time bee venom protein (honey bee) Allergy Anaphylaxis Verified 04/06/21 21:28 Penicillins Allergy Rash/Hives Verified 04/06/21 21:28 Review of Systems ROS Statement: Those systems with pertinent positive or pertinent negative responses have been documented in the HPI. ROS Other: All systems not noted in ROS Statement are negative. 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 History of Any Multi-Drug Resistant Organisms: None Reported Past Surgical History: Appendectomy, Bowel Resection, Orthopedic Surgery, Tubal Ligation Additional Past Surgical History / Comment(s): Hx of colostomy and reversal, rotator cuff repair on Left, hx of fem/pop bypass. Colonoscopy 2012, cardiac catheterization Past Anesthesia/Blood Transfusion Reactions: No Reported Reaction Past Psychological History: Anxiety, Depression Smoking Status: Current every day smoker Past Alcohol Use History: None Reported Past Drug Use History: Marijuana - Past Family History Mother Family Medical History: Congestive Heart Failure (CHF), Diabetes Mellitus Brother(s) Additional Family Medical History / Comment(s): CABG Sister(s) Family Medical History: CVA/TIA Additional Family Medical History / Comment(s): Maternal aunt had breast cancer. General Exam Limitations: no limitations General appearance: alert, in no apparent distress, other (This is a well- developed, well-nourished adult female in no acute distress) ENT exam: Present: normal exam, normal oropharynx, mucous membranes moist Respiratory exam: Present: normal lung sounds bilaterally. Absent: respiratory distress, wheezes, rales, rhonchi, stridor Cardiovascular Exam: Present: regular rate, normal rhythm, normal heart sounds. Absent: systolic murmur, diastolic murmur, rubs, gallop, clicks GI/Abdominal exam: Present: soft, normal bowel sounds. Absent: distended, tenderness, guarding, rebound, rigid Neurological exam: Present: alert, oriented X3, CN II-XII intact Psychiatric exam: Present: normal affect, normal mood Skin exam: Present: warm, dry, intact, normal color. Absent: rash Course Vital Signs 04/06/21 04/06/21 04/06/21 18:31 19:50 21:51 Temperature 99.8 F H 98.1 F Pulse Rate 90 91 79 Respiratory 20 18 18 Rate Blood Pressure 142/100 168/100 158/94 O2 Sat by Pulse 97 96 95 Oximetry Medical Decision Making - Medical Decision Making 50-year-old female patient presents for evaluation of vomiting last couple of days. She does have history of chronic kidney disease. Labs reviewed and did reveal white blood cell count at 16.6, sodium 134, BUN 46, creatinine 2.67, glucose 216, troponin 0.084 most likely due to troponin leak from chronic kidney disease. Urinalysis showed 4+ protein, 2+ glucose, 1+ ketones. She tested negative for COVID-19. Upon reevaluation she is resting comfortable in bed. States all of her symptoms have resolved. She'll be discharged with Zofran. She'll be instructed to follow-up with her primary care physician for recheck in 1-2 days. Return parameters were discussed in detail. She verbalizes understanding and agrees with this plan. Case discussed with my attending Dr. Quezada. - Lab Data Result diagrams: 04/06/21 18:46 04/06/21 18:46 Lab Results 04/06/21 04/06/21 04/06/21 Range/Units 18:46 18:46 18:46 WBC 16.6 H (3.8-10.6) k/uL RBC 4.35 (3.80-5.40) m/uL Hgb 14.2 (11.4-16.0) gm/dL Hct 40.9 (34.0-46.0) % MCV 94.0 (80.0-100.0) fL MCH 32.7 (25.0-35.0) pg MCHC 34.7 (31.0-37.0) g/dL RDW 12.9 (11.5-15.5) % Plt Count 183 (150-450) k/uL MPV 10.1 Neutrophils % 77 % Lymphocytes % 17 % Monocytes % 5 % Eosinophils % 1 % Basophils % 0 % Neutrophils # 12.8 H (1.3-7.7) k/uL Lymphocytes # 2.8 (1.0-4.8) k/uL Monocytes # 0.7 (0-1.0) k/uL Eosinophils # 0.1 (0-0.7) k/uL Basophils # 0.0 (0-0.2) k/uL Sodium 134 L (137-145) mmol/L Potassium 4.3 (3.5-5.1) mmol/L Chloride 95 L (98-107) mmol/L Carbon Dioxide 24 (22-30) mmol/L Anion Gap 15 mmol/L BUN 46 H (7-17) mg/dL Creatinine 2.67 H (0.52-1.04) mg/dL Est GFR (CKD-EPI)AfAm 23 (>60 ml/min/1.73 sqM) Est GFR (CKD-EPI)NonAf 20 (>60 ml/min/1.73 sqM) Glucose 216 H (74-99) mg/dL Plasma Lactic Acid Tres (0.7-2.0) mmol/L Calcium 9.6 (8.4-10.2) mg/dL Total Bilirubin 1.0 (0.2-1.3) mg/dL AST 22 (14-36) U/L ALT 15 (4-34) U/L Alkaline Phosphatase 110 (38-126) U/L Troponin I (0.000-0.034) ng/mL Total Protein 6.8 (6.3-8.2) g/dL Albumin 4.2 (3.5-5.0) g/dL Lipase 107 (23-300) U/L Urine Color Yellow Urine Appearance Cloudy H (Clear) Urine pH 6.5 (5.0-8.0) Ur Specific [place] 1.018 (1.001-1.035) Urine Protein 4+ H (Negative) Urine Glucose (UA) 2+ H (Negative) Urine Ketones 1+ H (Negative) Urine Blood Moderate H (Negative) Urine Nitrite Negative (Negative) Urine Bilirubin Negative (Negative) Urine Urobilinogen <2.0 (<2.0) mg/dL Ur Leukocyte Esterase Negative (Negative) Urine RBC 4 (0-5) /hpf Urine WBC 5 (0-5) /hpf Ur Squamous Epith Cells 1 (0-4) /hpf Amorphous Sediment Occasional H (None) /hpf Hyaline Casts 223 H (0-2) /lpf Urine Mucus Rare H (None) /hpf Coronavirus (PCR) (Not Detectd) 04/06/21 04/06/21 04/06/21 Range/Units 18:46 18:46 19:50 WBC (3.8-10.6) k/uL RBC (3.80-5.40) m/uL Hgb (11.4-16.0) gm/dL Hct (34.0-46.0) % MCV (80.0-100.0) fL MCH (25.0-35.0) pg MCHC (31.0-37.0) g/dL RDW (11.5-15.5) % Plt Count (150-450) k/uL MPV Neutrophils % % Lymphocytes % % Monocytes % % Eosinophils % % Basophils % % Neutrophils # (1.3-7.7) k/uL Lymphocytes # (1.0-4.8) k/uL Monocytes # (0-1.0) k/uL Eosinophils # (0-0.7) k/uL Basophils # (0-0.2) k/uL Sodium (137-145) mmol/L Potassium (3.5-5.1) mmol/L Chloride (98-107) mmol/L Carbon Dioxide (22-30) mmol/L Anion Gap mmol/L BUN (7-17) mg/dL Creatinine (0.52-1.04) mg/dL Est GFR (CKD-EPI)AfAm (>60 ml/min/1.73 sqM) Est GFR (CKD-EPI)NonAf (>60 ml/min/1.73 sqM) Glucose (74-99) mg/dL Plasma Lactic Acid Tres 1.4 (0.7-2.0) mmol/L Calcium (8.4-10.2) mg/dL Total Bilirubin (0.2-1.3) mg/dL AST (14-36) U/L ALT (4-34) U/L Alkaline Phosphatase (38-126) U/L Troponin I 0.084 H* (0.000-0.034) ng/mL Total Protein (6.3-8.2) g/dL Albumin (3.5-5.0) g/dL Lipase (23-300) U/L Urine Color Urine Appearance (Clear) Urine pH (5.0-8.0) Ur Specific [place] (1.001-1.035) Urine Protein (Negative) Urine Glucose (UA) (Negative) Urine Ketones (Negative) Urine Blood (Negative) Urine Nitrite (Negative) Urine Bilirubin (Negative) Urine Urobilinogen (<2.0) mg/dL Ur Leukocyte Esterase (Negative) Urine RBC (0-5) /hpf Urine WBC (0-5) /hpf Ur Squamous Epith Cells (0-4) /hpf Amorphous Sediment (None) /hpf Hyaline Casts (0-2) /lpf Urine Mucus (None) /hpf Coronavirus (PCR) Not Detected (Not Detectd) - EKG Data -: EKG Interpreted by Me EKG Comments: KG obtained at 1911 shows normal sinus rhythm with ventricular rate of 88, [place] interval 164, QRS duration 84, QT 382, QTc 462. There are multiple inverted P waves. Altered morphology of her QRS. No evidence for ST elevation or depression. - Radiology Data Radiology results: report reviewed, image reviewed 2 views of the abdomen are obtained. Report reviewed in its entirety. Impression by Dr. Srivastava shows nonacute abdomen. Disposition Clinical Impression: Vomiting Disposition: HOME SELF-CARE Condition: Good Instructions (If sedation given, give patient instructions): Acute Nausea and Vomiting (ED) Additional Instructions: Follow-up with your primary care physician for recheck in 1-2 days. Take Zofran as directed. Return for any new, worsening, or concerning symptoms. Prescriptions: Ondansetron [Zofran ODT] 4 mg PO Q8HR PRN #10 tab PRN Reason: Nausea Is patient prescribed a controlled substance at d/c from ED?: No Referrals: Catalina Vivas MD [Primary Care Provider] - 1-2 days Time of Disposition: 21:50
[2021-04-06 19:55] VITALS: RESP 18
[2021-04-06 20:16] LABS: Amorphous Sediment,Urine Occasional /hpf; Appearance,Urine Cloudy (Clear); Bilirubin,Urine Negative (Negative); Blood,Urine Moderate (Negative); Color,Urine Yellow; Glucose,Urine (UA) 2+ (Negative); Hyaline Casts,Urine 223 /lpf (0-2); Ketones,Urine 1+ (Negative); Leukocyte Esterase,Urine Negative (Negative); Mucus,Urine Rare /hpf; Nitrite,Urine Negative (Negative); PH, Urine 6.5 (5.0-8.0); Protein,Urine 4+ (Negative); RBC,Urine 4 /hpf (0-5); Specific Gravity,Urine 1.018 (1.001-1.035); Squamous Epithelial Cell,Urine 1 /hpf (0-4); Urobilinogen,Urine <2.0 mg/dL (<2.0); WBC,Urine 5 /hpf (0-5)
[2021-04-06] MEDS ORDERED: ONDANSETRON 4 MG ODT STARTER PACK 2 TAB BTL PO STA (21:51)
[2021-04-06 21:52] VITALS: BP 158/94; PULSE 79; TEMP 98.1
== END 2021-04-06 22:20 | disposition home or self-care (01) ==
LOC: EC 18:18
DX: R11.2 Nausea with vomiting, unspecified (principal); R07.89 Other chest pain; R06.02 Shortness of breath; I13.0 Hypertensive heart and chronic kidney disease with heart failure and stage 1 through stage 4 chronic kidney disease, or unspecified chronic kidney disease; J44.9 Chronic obstructive pulmonary disease, unspecified; I50.9 Heart failure, unspecified; N18.6 End stage renal disease; E11.22 Type 2 diabetes mellitus with diabetic chronic kidney disease; E78.5 Hyperlipidemia, unspecified; F17.200 Nicotine dependence, unspecified, uncomplicated; Z20.822 Contact with and (suspected) exposure to COVID-19; Z88.0 Allergy status to penicillin; Z91.030 Bee allergy status; Z79.899 Other long term (current) drug therapy; Z86.73 Personal history of transient ischemic attack (TIA), and cerebral infarction without residual deficits; Z79.4 Long term (current) use of insulin
CPT/HCPCS: 36415; 93005; 80053; 83605; 83690; 84484; 85025; 81001; 87635; 74018; 99285; 96374; 96375; 96361; J2405; J2270; S0119

== ENCOUNTER → 2022-01-06 | Outpatient (CLI) | payer OTHER | LOC: RADMAMWWP 12:27 | PROVIDERS: ATTEND Family Medicine | DX: Z53.9 Procedure and treatment not carried out, unspecified reason (principal) ==

== ENCOUNTER → 2022-01-09 | Outpatient (CLI) | payer OTHER ==
--- NOTE | 2022-01-15 10:38 | CT ---
EXAMINATION TYPE: CT brain wo con DATE OF EXAM: 01/09/2022 HISTORY: f/u subarachnoid hemorrhage. CT DLP: 1174 mGycm. Automated Exposure Control for Dose Reduction was Utilized. TECHNIQUE: CT scan of the head is performed without contrast. COMPARISON: Prior CT brain report April 18, 2020. FINDINGS: Frontal craniotomy change is noted and discussed on prior report . There is streak artifact from aneurysm clip in the anterior cerebral artery distribution seen and discussed on prior report There is no acute intracranial hemorrhage or midline shift identified current study. Ventricles and s ulci within normal limits in size for patient's age. Calhoun-white matter differentiation is satisfactor y. Small area of old encephalomalacia anterior right frontal lobe axial image 29 . Nasal septum devia lloyd to left of midline. There is partial opacification of the single frontal sinus. Globes are intact bilaterally. IMPRESSION: No acute intracranial hemorrhage or midline shift. Other findings as noted above. Direct correlation cannot be performed due to PACS downtime.
== END | disposition home or self-care (01) ==
LOC: RADCTMAIN 12:15
PROVIDERS: ATTEND Specialist
DX: I60.2 Nontraumatic subarachnoid hemorrhage from anterior communicating artery (principal)
CPT/HCPCS: 70450; 82565; 84520

== ENCOUNTER 2022-01-13 11:05 | Inpatient (IN) | payer OTHER ==
[2022-01-13 20:23] LABS: Glucose,Whole Blood 282 mg/dL (70-110)
[2022-01-13] MEDS ORDERED: ALBUTEROL HFA INHALER INHALATION PRN (21:37)
[2022-01-13] MEDS ORDERED: DEXTROSE 50% SYRINGE 50 ML IVP PRN ×2 (21:40)
[2022-01-13] MEDS: carvediloL 3.125 MG TAB PO SCH (22:03)
[2022-01-13] MEDS: ONDANSETRON ODT 4 MG TAB PO PRN (22:03)
[2022-01-13] MEDS: INSULIN ASPART (NovoLOG) 100 UNIT/ML VIAL SQ SCH (22:03)
[2022-01-13] MEDS: ATORVASTATIN 80 MG TAB PO SCH (22:03)
[2022-01-13] MEDS: INSULIN DETEMIR (LEVEMIR) 100 UNIT/ML SYR SQ SCH (22:04)
[2022-01-14] MEDS: INSULIN ASPART (NovoLOG) 100 UNIT/ML VIAL SQ SCH ×4 (06:48→20:59)
[2022-01-14] MEDS: carvediloL 3.125 MG TAB PO SCH ×2 (06:51→13:06)
[2022-01-14 06:53] LABS: Glucose,Whole Blood 91 mg/dL (70-110)
[2022-01-14] MEDS ORDERED: HEPARIN SODIUM 1,000 UN/ML (10ML VL) IV PRN (07:46)
[2022-01-14] MEDS ORDERED: HEPARIN SODIUM 1,000 UN/ML (10ML VL) IV ONE (07:46)
[2022-01-14] MEDS: ALBUTEROL NEBULIZED 2.5 MG/3 ML INHALATION PRN (07:47)
[2022-01-14 08:32] LABS: Basophils # (A) 0.1 k/uL (0-0.2); Basophils % (A) 1 %; Eosinophils # (A) 0.3 k/uL (0-0.7); Eosinophils % (A) 4 %; HCT 38.2 % (34.0-46.0); Hypochromasia Slight; Lymphocytes # (A) 1.5 k/uL (1.0-4.8); Lymphocytes % (A) 18 %; MCH 32.7 pg (25.0-35.0); MCHC 31.4 g/dL (31.0-37.0); MCV 104.2 fL (80.0-100.0); Macrocytosis Moderate; Mean Platelet Volume 10.6; Monocytes # (A) 0.6 k/uL (0-1.0); Monocytes % (A) 7 %; Neutrophils # (A) 5.7 k/uL (1.3-7.7); Neutrophils % (A) 69 %; Platelet Count 137 k/uL (150-450); RBC 3.67 m/uL (3.80-5.40); RDW 15.9 % (11.5-15.5); WBC 8.4 k/uL (3.8-10.6)
[2022-01-14 08:39] LABS: INR 1.2 (<1.2); Partial Thromboplastin Time 24.4 sec (22.0-30.0); Prothrombin Time 12.4 sec (9.0-12.0)
[2022-01-14 08:41] LABS: Calcium 8.2 mg/dL (8.4-10.2); Potassium 4.4 mmol/L (3.5-5.1)
[2022-01-14] MEDS ORDERED: FUROSEMIDE 40 MG TAB PO SCH (09:00)
[2022-01-14] MEDS ORDERED: FUROSEMIDE 20 MG TAB PO SCH (09:00)
--- NOTE | 2022-01-14 09:33 | P.PN ---
Subjective Patient is seen in follow-up for end-stage renal disease. She is maintained on hemodialysis on Wednesday schedule. Patient was transferred from [facility] due to triple-vessel disease. Denies chest pain or shortness of breath. Vital signs are stable. General: Awake. No acute distress. HEENT: Head exam is unremarkable. LUNGS: Breath sounds decreased. HEART: Rate and Rhythm are regular. ABDOMEN: Soft, no distention. EXTREMITITES: No edema. Objective - Vital Signs Vital signs: Vital Signs Temp 96.8 F L 01/14/22 08:03 Pulse 62 01/14/22 08:03 Resp 16 01/14/22 08:03 BP 173/85 01/14/22 08:03 Pulse Ox 100 01/14/22 08:03 FiO2 Intake & Output 01/13/22 01/14/22 01/14/22 18:59 06:59 18:59 Intake Total 118 180 Balance 118 180 Weight 65.9 kg Intake: Oral 118 180 Other: Voiding Method Toilet Toilet Diaper Diaper # Voids 1 2 1 - Labs CBC & Chem 7: 01/14/22 08:11 01/14/22 08:11 Labs: Abnormal Lab Results - Last 24 Hours (Table) 01/13/22 01/14/22 01/14/22 Range/Units 20:16 08:11 08:11 RBC 3.67 L (3.80-5.40) m/uL MCV 104.2 H (80.0-100.0) fL RDW 15.9 H (11.5-15.5) % Plt Count 137 L (150-450) k/uL PT (9.0-12.0) sec INR (<1.2) Sodium 133 L (137-145) mmol/L BUN 46 H (7-17) mg/dL Creatinine 4.23 H (0.52-1.04) mg/dL Glucose 123 H (74-99) mg/dL POC Glucose (mg/dL) 282 H (70-110) mg/dL Calcium 8.2 L (8.4-10.2) mg/dL 01/14/22 Range/Units 08:11 RBC (3.80-5.40) m/uL MCV (80.0-100.0) fL RDW (11.5-15.5) % Plt Count (150-450) k/uL PT 12.4 H (9.0-12.0) sec INR 1.2 H (<1.2) Sodium (137-145) mmol/L BUN (7-17) mg/dL Creatinine (0.52-1.04) mg/dL Glucose (74-99) mg/dL POC Glucose (mg/dL) (70-110) mg/dL Calcium (8.4-10.2) mg/dL Assessment and Plan Plan: Assessment: 1. End-stage renal disease maintained on hemodialysis on Wednesday schedule. 2. Coronary artery disease. Cardiology following. 3. Hypertension with chronic kidney disease. 4. Diabetes mellitus. Plan: Hemodialysis today. Add hydralazine 25 mg 3 times daily. Hold for systolic blood pressure less than 120. Check phosphorus level.
[2022-01-14] MEDS ORDERED: ATORVASTATIN 80 MG TAB PO STA (09:45)
[2022-01-14] MEDS ORDERED: ASPIRIN 325 MG TAB PO STA (09:45)
[2022-01-14] MEDS ORDERED: ALPRAZolam 0.25 MG TAB PO PRN (09:46)
[2022-01-14] MEDS ORDERED: NITROGLYCERIN SL TABS 0.4 MG TAB SUBLINGUAL PRN ×2 (09:46→12:04)
[2022-01-14] MEDS: ASPIRIN 81 MG PO SCH (09:46)
[2022-01-14] MEDS ORDERED: SODIUM CHLORIDE 0.9% 1,000 ML in EMPTY BAG 1 BAG IV ONE (09:46)
[2022-01-14] MEDS: HEPARIN SOD,PORK IN 0.45% NACL 25,000 UNIT in 0.45% NACL 1 250ML.BAG IV SCH (10:04)
[2022-01-14] MEDS ORDERED: SODIUM CHLORIDE 0.9% 1,000 ML IV ONE (10:10)
[2022-01-14] MEDS ORDERED: fentaNYL (PF) 50 MCG/ML 2 ML AMP ONE (10:29)
[2022-01-14] MEDS ORDERED: fentaNYL (PF) 50 MCG/ML 2 ML AMP IV ONE (10:32)
[2022-01-14] MEDS ORDERED: MIDAZOLAM 2 MG/2 ML VIAL IV ONE (10:32)
[2022-01-14] MEDS ORDERED: LIDOCAINE 1% INJ 10MG/ML (30 ML VIAL-PF) SQ ONE (10:33)
[2022-01-14] MEDS ORDERED: HYDROmorphone 0.5 MG/0.5 ML SYRINGE IVP ONE (10:38)
[2022-01-14] MEDS: HEPARIN SODIUM 1,000 UN/ML (10ML VL) IV ONE ×2 (10:48→11:26)
[2022-01-14] MEDS ORDERED: CLOPIDOGREL 75 MG TAB ONE (10:51)
[2022-01-14] MEDS ORDERED: niCARdipine 25 MG/10 ML VIAL ONE (10:59)
[2022-01-14] MEDS ORDERED: CLOPIDOGREL 75 MG TAB PO ONE (11:01)
[2022-01-14] MEDS ORDERED: NITROGLYCERIN 1000MCG/10ML SYRINGE INTRACORON ONE (11:46)
[2022-01-14] MEDS ORDERED: niCARdipine Syringe (1,000 mcg/10 mL) INTRACORON ONE (11:47)
[2022-01-14] MEDS ORDERED: IOPAMIDOL-370 125ML BTL INJ ONE (12:03)
[2022-01-14] MEDS ORDERED: ZOLPIDEM 5 MG TAB PO PRN (12:04)
[2022-01-14] MEDS ORDERED: RX INFO: IV CONTRAST WAS GIVEN 1 EACH MISC MISCELLANE PRN (12:04)
[2022-01-14] MEDS ORDERED: MAG HYDROX/AL HYDROX/SIMETH 30 ML CUP PO PRN (12:04)
[2022-01-14] MEDS ORDERED: ATROPINE SULFATE 0.1 MG/ML 10ML SYRINGE IV PRN (12:04)
--- NOTE | 2022-01-14 12:13 | P.PCN ---
Date of Procedure: 01/14/22 Operative Findings: PERCUTANEOUS CORONARY INTERVENTION Performing physician Ananda Becerril M.D. Procedure Performed: 1. Successful stenting of the distal left circumflex using 2.0 x 26 mmOnyx drug- eluting stent with an excellent angiographic results. 2. Successful stending of the proximal LCx using 22.75 x 15 mmXience drug- eluting stent with an excellent angiographic result. 3. Ultrasound-guided access of the right common femoral artery Indication: This is a 51-year-old female patient with end-stage renal disease on dialysis as well as severe lower extremities peripheral arterial disease with prior aortobifem surgery as well as diabetes and hypertension and dyslipidemia and history of stroke who was admitted to the hospital recently with chest discomfort and ruled in for acute coronary event. She underwent a heart catheterization and that revealed critical disease involving the left circumflex coronary artery. In the light of that PCI was advised Approach: Right common femoral art Complications: None Level of Sedation: Moderate with a sedation length of 87 minute Procedure Discussion: After obtaining an informed consent the patient was brought to the cardiac lab support service tech. The right common femoral artery was cannulated using macro puncture technique under ultrasound guidance, the micropuncture wire passed easily then I placed a 6-Yoruba sheath. Subsequently anticoagulation was initiated using heparin with continuous ACT monitoring. After that I did engage the left main using JL4 guiding catheter. I did wire initially the left circumflex artery using a whisper wire and also I did wire OM also using a whisper wire. The initial plan is to perform angioplasty of the left circumflex and OM as well. But the angioplasty on the left circumflex turned to be extremely complex. After that I did balloon angioplasty of the left circumflex using 20 by 12 mm balloon. Attempting advancing 20 by 26 mm stent was unsuccessful because the stent would not pass from the left main to left circumflex coronary artery. At that point I decided to go ahead and use guidewire and even with adjunctive use of guidewire I was unable to advance a stent to the left circumflex coronary artery. After that I did wire the left circumflex using a mikala wire were pulled the wire from OM and I wire the left circumflex itself. With that I was unable to advance a stent also to the left circumflex. The stent was stuck in the mid left circumflex coronary artery. For that reason I decided to perform an angioplasty. I did an angioplasty of the mid left circumflex initially using 2.5 regular balloon and then 2.5 noncompliant balloon and then 2.75 noncompliant balloon. After that I attempted advancing the stent but the stent would not pass in spite of all of that. After that I decided to exchange my mikala wire into an Ironman using super cross catheter. With that I was able to advance the stent to the distal left circumflex coronary artery where the stent was positioned under fluoroscopy guidance and deployed under its nominal pressure after I pulled up with the wire out. The following angiogram showed that the stented segment looks good but the proximal segment which is a mid left circumflex has a dissection which I decided to cover with stent. I attempted wiring the left circumflex using the Ironman but the wire would not cross then I was able to advance a run-through wire. With that I was able to get the stent over the whisper wire to the mid left circumflex where the stent at that point was 2.75 x 15 mm stent and the stent was advanced over the whisper wire. The stent was positioned under fluoroscopy guidance and deployed under its nominal pressure after the mikala wire was pulled out. The following angiogram showed good angiographic results and the procedure was completed without any c omplication Postprocedure Management: 1. Dual antiplatelet therapy using aspirin and Plavix for 12 1 2. Aggressive cholesterol can to 3. Risk factors modification
[2022-01-14] MEDS ORDERED: SODIUM CHLORIDE 0.9% 1,000 ML in EMPTY BAG 1 BAG IV SCH (12:15)
--- NOTE | 2022-01-14 12:18 | P.HPIM ---
History of Present Illness Patient is a 52-year-old pleasant female transferred from the Hospital Where He Was at She Was Admitted for Acute Non-ST Elevation NM and Found to Have a Triple-Vessel Disease. Patient Underwent Cardiac Catheterization Today and Had a Stent to Left Circumflex 2 Stents. Patient Is Chest Pain-Free at This Time REVIEW OF SYSTEMS: CONSTITUTIONAL: No fever, no malaise, no fatigue. HEENT: No recent visual problems or hearing problems. Denied any sore throat. CARDIOVASCULAR: No chest pain, orthopnea, PND, no palpitations, no syncope. PULMONARY: No shortness of breath, no cough, no hemoptysis. GASTROINTESTINAL: No diarrhea, no nausea, no vomiting, no abdominal pain. NEUROLOGICAL: No headaches, no weakness, no numbness. HEMATOLOGICAL: Denies any bleeding or petechiae. GENITOURINARY: Denies any burning micturition, frequency, or urgency. MUSCULOSKELETAL/RHEUMATOLOGICAL: Denies any joint pain, swelling, or any muscle pain. ENDOCRINE: Denies any polyuria or polydipsia. The rest of the 14-point review of systems is negative. PHYSICAL EXAMINATION: GENERAL: The patient is alert and oriented x3, not in any acute distress. Well developed, well nourished. HEENT: Pupils are round and equally reacting to light. EOMI. No scleral icterus. No conjunctival pallor. Normocephalic, atraumatic. No pharyngeal erythema. No thyromegaly. CARDIOVASCULAR: S1 and S2 present. No murmurs, rubs, or gallops. PULMONARY: Chest is clear to auscultation, no wheezing or crackles. ABDOMEN: Soft, nontender, nondistended, normoactive bowel sounds. No palpable organomegaly. MUSCULOSKELETAL: No joint swelling or deformity. EXTREMITIES: No cyanosis, clubbing, or pedal edema. NEUROLOGICAL: Gross neurological examination did not reveal any focal deficits. SKIN: No rashes. Assessment and plan -Acute non-ST elevation microinfarction: Patient underwent cardiac catheterization and stenting to left circumflex -Coronary artery disease -Hypertension -End-stage renal disease on hemodialysis next -Type 2 diabetes mellitus continue with present regimen -Peripheral vascular disease -CVA/TIA Past Medical History Past Medical History: Cancer, Heart Failure, COPD, CVA/TIA, Diabetes Mellitus, Hyperlipidemia, Hypertension, Renal Disease, Vascular Disorder Additional Past Medical History / Comment(s): CHF, valvular heart disease with MR, peripheral vascular disease, CML. 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 History of Any Multi-Drug Resistant Organisms: None Reported Past Surgical History: Appendectomy, Bowel Resection, Orthopedic Surgery, Tubal Ligation Additional Past Surgical History / Comment(s): Hx of colostomy and reversal, rotator cuff repair on Left, hx of fem/pop bypass. Colonoscopy 2012, cardiac catheterization Past Anesthesia/Blood Transfusion Reactions: No Reported Reaction Past Psychological History: Anxiety, Depression Smoking Status: Current every day smoker Past Alcohol Use History: None Reported Additional Past Alcohol Use History / Comment(s): smokes 1 PPD Past Drug Use History: Marijuana - Past Family History Mother Family Medical History: Congestive Heart Failure (CHF), Diabetes Mellitus Brother(s) Additional Family Medical History / Comment(s): CABG Sister(s) Family Medical History: CVA/TIA Additional Family Medical History / Comment(s): Maternal aunt had breast cancer. Medications and Allergies Home Medications Medication Instructions Recorded Confirmed Type Atorvastatin [Lipitor] 80 mg PO HS 06/30/17 01/13/22 History Aspirin 81 mg PO DAILY 30 Days #30 chew 04/21/20 01/13/22 Rx Albuterol Nebulized [Ventolin 2.5 mg INHALATION RT-TID PRN 02/13/21 01/13/22 History Nebulized] Folic Acid 0.4 mg PO DAILY 02/13/21 01/13/22 History Insulin Glargine,Hum.rec.anlog 15 unit SQ HS 02/13/21 01/13/22 History [Lantus Solostar Pen] Albuterol Sulfate [Proair Hfa] 2 puff INHALATION RT-Q6H PRN 01/13/22 01/13/22 History Furosemide [Lasix] 20 mg PO BID 01/13/22 01/13/22 History Furosemide [Lasix] 40 mg PO BID 01/13/22 01/13/22 History Insulin Lispro [Admelog Solostar] 1 - 7 units SQ ACHS 01/13/22 01/13/22 History Ondansetron [Zofran ODT] 4 mg PO DAILY PRN 01/13/22 01/13/22 History Miriam-Thalia 1 tab PO DAILY 01/13/22 01/13/22 History carvediloL [Coreg] 3.125 mg PO BID 01/13/22 01/13/22 History lisinopriL [Zestril] 2.5 mg PO DAILY 01/13/22 01/13/22 History Allergies Allergy/AdvReac Type Severity Reaction Status Date / Time bee venom protein (honey bee) Allergy Anaphylaxis Verified 01/13/22 18:56 Penicillins Allergy Rash/Hives Verified 01/13/22 18:56 Physical Exam Vitals: Vital Signs Temp Pulse Pulse Resp BP BP Pulse Ox 01/14/22 11:36 16 01/14/22 08:03 96.8 F L 62 16 173/85 100 01/14/22 08:00 16 01/14/22 07:58 68 01/14/22 07:48 65 98 01/14/22 03:30 98.2 F 66 18 117/77 99 01/13/22 23:20 98.3 F 63 16 127/80 100 01/13/22 20:55 97.9 F 66 18 181/90 126/82 99 01/13/22 16:42 98.3 F 79 177/74 97 01/13/22 16:36 98.3 F 79 177/74 97 Intake and Output 01/13/22 01/14/22 01/14/22 22:59 06:59 14:59 Intake Total 118 230 Balance 118 230 Intake: IV 50 Oral 118 180 Other: Voiding Method Toilet Toilet Toilet Diaper Diaper Diaper # Voids 1 2 1 Weight 65.9 kg Results CBC & Chem 7: 01/14/22 08:11 01/14/22 08:11 Labs: Abnormal Lab Results - Last 24 Hours (Table) 01/13/22 01/14/22 01/14/22 Range/Units 20:16 08:11 08:11 RBC 3.67 L (3.80-5.40) m/uL MCV 104.2 H (80.0-100.0) fL RDW 15.9 H (11.5-15.5) % Plt Count 137 L (150-450) k/uL PT (9.0-12.0) sec INR (<1.2) Sodium 133 L (137-145) mmol/L BUN 46 H (7-17) mg/dL Creatinine 4.23 H (0.52-1.04) mg/dL Glucose 123 H (74-99) mg/dL POC Glucose (mg/dL) 282 H (70-110) mg/dL Calcium 8.2 L (8.4-10.2) mg/dL Phosphorus (2.5-4.5) mg/dL 01/14/22 01/14/22 Range/Units 08:11 08:11 RBC (3.80-5.40) m/uL MCV (80.0-100.0) fL RDW (11.5-15.5) % Plt Count (150-450) k/uL PT 12.4 H (9.0-12.0) sec INR 1.2 H (<1.2) Sodium (137-145) mmol/L BUN (7-17) mg/dL Creatinine (0.52-1.04) mg/dL Glucose (74-99) mg/dL POC Glucose (mg/dL) (70-110) mg/dL Calcium (8.4-10.2) mg/dL Phosphorus 6.3 H (2.5-4.5) mg/dL Thrombosis Risk Factor Assmnt - Choose All That Apply Each Factor Represents 1 point: Abnormal pulmonary function (COPD), Acute NM, Age 41-60 years, Medical pt on bed rest Other Risk Factors: No Other congenital or acquired thrombophilia - If yes, enter type in comment: No Thrombosis Risk Factor Assessment Total Risk Factor Score: 4 Thrombosis Risk Factor Assessment Level: Moderate Risk
--- NOTE | 2022-01-14 12:51 | P.PN ---
Subjective This is a 51-year-old female past medical history of non-ischemic cardiomyopathy, coronary artery disease with 40% mid LAD stenosis from cardiac cath 12/2018, brain aneurysm status post clipping approximately 3 years ago, CML, peripheral artery disease status post bypass, COPD, chronic nicotine dependence, type 2 diabetes, hypertension, end stage renal disease on dialysis. She follows with Dr. Becerril. She presented to [facility] with complaints of chest pain radiating to her shoulder and right arm with associated nausea and diaphoresis. Patient diagnosed as NSTEMI. Patient was transferred to [facility] She underwent cardiac catheterization at [facility] with Dr. Becerril 01/13 which revealed, severe triple vessel coronary artery disease. RCA has diffuse disease up to about 90%, critical disease involving the left circumflex and OM1 in the range of 9095 % stenosis. Intermediate disease involving the proximal LAD and severe lesion involving the first diagonal branch. Elevated left-sided filling pressures. Echocardiogram revealed EF 20%, hypokinesis of the mid to apical anterior, mid to apical inferior and mid inferior lateral tinajero, RV is mildly hypokinetic, trace aortic regurgitation and mild to moderate mitral regurgitation and trace to mild tricuspid regurgitation, RVSP of 26 mm 01/14/2022 Patient seen and examined at bedside, no acute distress. She denies any chest pain or shortness of breath. Blood pressure 173/85, heart 62, afebrile, saturation 100% GENERAL: Well-appearing, well-nourished and in no acute distress. NECK: Supple without JVD LUNGS: Breath sounds clear to auscultation bilaterally. Respiration equal and unlabored. No wheezes, rales or rhonchi. HEART: Regular rate and rhythm Systolic ejection murmur at apex, No rubs or gallops. S1 and S2 heard. SKIN: Right groin clean site, clean 2+ pulses, no hematoma EXTREMITIES: Normal range of motion, no edema. No clubbing or cyanosis. Lenore pheral pulses intact. ASSESSMENT NSTEMI Severe triple vessel coronary artery disease Ischemic cardiomyopathy History of brain aneurysm status post clipping approximately 3 years ago Histoy of CML Peripheral artery disease status post bypass COPD Chronic nicotine dependence Type 2 diabetes Hypertension End stage renal disease on dialysis PLAN Patient was discussed the option of revascularization vs PCI Plan for cardiac catheterization with PCI today with Dr. Becerril I have discussed the risks, benefits and alternative therapies for the above- mentioned procedure and for both sedation/analgesia as well as necessary blood product administration, if indicated, as they pertain to this patient. The patient has indicated understanding and acceptance of the risks and procedures discussed. Questions have been answered appropriately and she is agreeable to move forward with the above-stated procedure. Maintain NPO IV heparin Aspirin, Statin Continue beta chau and ACEI Further recommendations based on clinical course Nurse Practitioner note has been reviewed, I agree with a documented findings and plan of care. Patient was seen and examined. Objective - Vital Signs Vital signs: Vital Signs Temp 98.3 F 01/13/22 16:42 Pulse 79 01/13/22 16:42 Resp BP 177/74 01/13/22 16:42 Pulse Ox 97 01/13/22 16:42 FiO2 Intake & Output 01/13/22 01/14/22 01/14/22 18:59 06:59 18:59 Intake Total 118 Balance 118 Weight 65.9 kg Intake: Oral 118 Other: # Voids 1 - Labs CBC & Chem 7: 01/14/22 08:11 01/14/22 08:11 Labs: Abnormal Lab Results - Last 24 Hours (Table) 01/13/22 Range/Units 20:16 POC Glucose (mg/dL) 282 H (70-110) mg/dL
[2022-01-14] MEDS: FOLIC ACID 1 MG TAB PO SCH (13:06)
[2022-01-14] MEDS: hydrALAZINE HCL 25 MG TAB PO SCH ×3 (13:06→20:58)
[2022-01-14] MEDS: FOLIC ACID-VIT B COMPLEX-VIT C 1 CAP PO SCH (13:07)
[2022-01-14] MEDS: ALPRAZolam 0.5 MG TAB PO PRN (13:08)
[2022-01-14] MEDS ORDERED: hydrALAZINE HCL 20 MG/ML 1 ML VIAL IVP STA (13:24)
[2022-01-14] MEDS: ATORVASTATIN 80 MG TAB PO SCH (15:15)
[2022-01-14] MEDS ORDERED: DESMOPRESSIN ACETATE 4 MCG/ML VIAL (MDV) IV ONE (15:45)
[2022-01-14 16:51] LABS: Glucose,Whole Blood 204 mg/dL (70-110)
[2022-01-14] MEDS ORDERED: DESMOPRESSIN ACETATE 18 MCG in SODIUM CHLORIDE 0.9% 50 ML IVPB ONE (17:00)
[2022-01-14 20:06] LABS: Glucose,Whole Blood 257 mg/dL (70-110)
[2022-01-14 20:14] LABS: Hepatitis B Surface Antigen Nonreactive (Nonreactive)
[2022-01-14] MEDS: FUROSEMIDE 20 MG TAB PO SCH (20:59)
[2022-01-14] MEDS: INSULIN DETEMIR (LEVEMIR) 100 UNIT/ML SYR SQ SCH (20:59)
[2022-01-14 21:26] LABS: Hepatitis B Surface AB- Quant 3.5 mIU/mL; Hepatitis B Surface Antibody Nonreactive (Nonreactive)
[2022-01-14] MEDS: ONDANSETRON ODT 4 MG TAB PO PRN (23:30)
[2022-01-15 04:37] LABS: INR 1.2 (<1.2); Prothrombin Time 12.8 sec (9.0-12.0)
[2022-01-15 04:55] LABS: Potassium 4.2 mmol/L (3.5-5.1)
[2022-01-15 06:23] LABS: Glucose,Whole Blood 308 mg/dL (70-110)
[2022-01-15] MEDS: INSULIN ASPART (NovoLOG) 100 UNIT/ML VIAL SQ SCH ×6 (06:44→22:05)
[2022-01-15] MEDS: carvediloL 3.125 MG TAB PO SCH (06:44)
[2022-01-15] MEDS ORDERED: HEPARIN SODIUM,PORCINE 10,000 UNIT in SODIUM CHLORIDE 0.9% 1,000 ML IRRIGATION PRN (07:00)
[2022-01-15] MEDS ORDERED: HEPARIN SODIUM,PORCINE 2,500 UNIT in SODIUM CHLORIDE 0.9% 250 ML IRRIGATION PRN (07:00)
[2022-01-15] MEDS: ALBUTEROL NEBULIZED 2.5 MG/3 ML INHALATION PRN (07:22)
[2022-01-15] MEDS: FOLIC ACID-VIT B COMPLEX-VIT C 1 CAP PO SCH (08:43)
[2022-01-15] MEDS: FOLIC ACID 1 MG TAB PO SCH (08:43)
[2022-01-15] MEDS: ASPIRIN 81 MG PO SCH (08:43)
[2022-01-15] MEDS: hydrALAZINE HCL 25 MG TAB PO SCH ×3 (08:43→21:57)
[2022-01-15] MEDS: FUROSEMIDE 20 MG TAB PO SCH ×2 (08:43→21:56)
[2022-01-15] MEDS: CLOPIDOGREL 75 MG TAB PO SCH (08:43)
[2022-01-15 09:23] LABS: Anisocytosis Slight; Basophils % (A) 1 %; Eosinophils # (A) 0.3 k/uL (0-0.7); Eosinophils % (A) 3 %; HCT 32.2 % (34.0-46.0); HGB 10.1 gm/dL (11.4-16.0); Hypochromasia Slight; Lymphocytes # (A) 1.1 k/uL (1.0-4.8); Lymphocytes % (A) 15 %; MCH 33.4 pg (25.0-35.0); MCHC 31.3 g/dL (31.0-37.0); MCV 106.8 fL (80.0-100.0); Macrocytosis Marked; Mean Platelet Volume 11.1; Monocytes # (A) 0.5 k/uL (0-1.0); Monocytes % (A) 7 %; Neutrophils # (A) 5.6 k/uL (1.3-7.7); Neutrophils % (A) 73 %; Platelet Count 115 k/uL (150-450); RBC 3.02 m/uL (3.80-5.40); RDW 17.3 % (11.5-15.5); WBC 7.7 k/uL (3.8-10.6)
[2022-01-15] MEDS: HEPARIN SOD,PORK IN 0.45% NACL 25,000 UNIT in 0.45% NACL 1 250ML.BAG IV SCH (10:12)
--- NOTE | 2022-01-15 10:34 | P.PN ---
Subjective Patient is seen in follow-up for end-stage renal disease. She is maintained on hemodialysis on Wednesday schedule. Underwent cardiac stents placement yesterday. No chest pain or shortness of breath. Resting in bed. No problems with dialysis yesterday. Vital signs are stable. General: Awake. No acute distress. HEENT: Head exam is unremarkable. LUNGS: Breath sounds decreased. HEART: Rate and Rhythm are regular. ABDOMEN: Soft, no distention. EXTREMITITES: No edema. Objective - Vital Signs Vital signs: Vital Signs Temp 98.4 F 01/15/22 08:00 Pulse 79 01/15/22 08:00 Resp 18 01/15/22 08:00 BP 179/75 01/15/22 08:00 Pulse Ox 97 01/15/22 08:00 FiO2 Intake & Output 01/14/22 01/15/22 01/15/22 18:59 06:59 18:59 Intake Total 230 Output Total 1999 Balance -1770 Intake: IV 50 Oral 180 Output: Hemodialysis 1999 Other: Voiding Method Toilet Toilet Toilet Diaper Diaper Diaper # Voids 0 1 0 - Labs CBC & Chem 7: 01/15/22 08:21 01/15/22 04:05 Labs: Abnormal Lab Results - Last 24 Hours (Table) 01/14/22 01/14/22 01/14/22 Range/Units 08:11 08:11 16:49 RBC (3.80-5.40) m/uL Hgb (11.4-16.0) gm/dL Hct (34.0-46.0) % MCV (80.0-100.0) fL RDW (11.5-15.5) % Plt Count (150-450) k/uL Macrocytosis PT (9.0-12.0) sec INR (<1.2) Sodium (137-145) mmol/L BUN (7-17) mg/dL Creatinine (0.52-1.04) mg/dL Glucose (74-99) mg/dL POC Glucose (mg/dL) 204 H (70-110) mg/dL Hemoglobin A1c 8.6 H (0.0-6.0) % Calcium (8.4-10.2) mg/dL Phosphorus 6.3 H (2.5-4.5) mg/dL 01/14/22 01/15/22 01/15/22 Range/Units 20:05 04:05 04:05 RBC (3.80-5.40) m/uL Hgb (11.4-16.0) gm/dL Hct (34.0-46.0) % MCV (80.0-100.0) fL RDW (11.5-15.5) % Plt Count (150-450) k/uL Macrocytosis PT 12.8 H (9.0-12.0) sec INR 1.2 H (<1.2) Sodium 134 L (137-145) mmol/L BUN 38 H (7-17) mg/dL Creatinine 4.10 H (0.52-1.04) mg/dL Glucose 251 H (74-99) mg/dL POC Glucose (mg/dL) 257 H (70-110) mg/dL Hemoglobin A1c (0.0-6.0) % Calcium 8.0 L (8.4-10.2) mg/dL Phosphorus (2.5-4.5) mg/dL 01/15/22 01/15/22 Range/Units 06:22 08:21 RBC 3.02 L (3.80-5.40) m/uL Hgb 10.1 L (11.4-16.0) gm/dL Hct 32.2 L (34.0-46.0) % MCV 106.8 H (80.0-100.0) fL RDW 17.3 H (11.5-15.5) % Plt Count 115 L (150-450) k/uL Macrocytosis Marked A PT (9.0-12.0) sec INR (<1.2) Sodium (137-145) mmol/L BUN (7-17) mg/dL Creatinine (0.52-1.04) mg/dL Glucose (74-99) mg/dL POC Glucose (mg/dL) 308 H (70-110) mg/dL Hemoglobin A1c (0.0-6.0) % Calcium (8.4-10.2) mg/dL Phosphorus (2.5-4.5) mg/dL Assessment and Plan Plan: Assessment: 1. End-stage renal disease maintained on hemodialysis on Wednesday schedule. 2. Coronary artery disease. Cardiology following. Status post 2 cardiac stents placed 01/14/2022. 3. Hypertension with chronic kidney disease. Blood pressure on the higher side. 4. Diabetes mellitus. 5. Chronic kidney disease mineral bone disease. Phosphorous 6.3. Plan: Hemodialysis tomorrow. Increase dose of hydralazine to 50 mg 3 times daily. Increase dose of lisinopril to 5 mg once daily. Add PhosLo with meals. Per dialysis nurse, she had some oozing from her catheter site yesterday and received dose of IV DDAVP. Seems to have resolved.
[2022-01-15 11:41] LABS: Glucose,Whole Blood 298 mg/dL (70-110)
[2022-01-15 11:43] VITALS: BMI 25.7
[2022-01-15] MEDS: ONDANSETRON ODT 4 MG TAB PO PRN (12:21)
--- NOTE | 2022-01-15 12:35 | P.PN ---
Subjective This is a 51-year-old female past medical history of non-ischemic cardiomyopathy, coronary artery disease with 40% mid LAD stenosis from cardiac cath 12/2018, brain aneurysm status post clipping approximately 3 years ago, CML, peripheral artery disease status post bypass, COPD, chronic nicotine dependence, type 2 diabetes, hypertension, end stage renal disease on dialysis. She follows with Dr. Becerril. She presented to [facility] with complaints of chest pain radiating to her shoulder and right arm with associated nausea and diaphoresis. Patient diagnosed as NSTEMI. Patient was transferred to [facility] She underwent cardiac catheterization at [facility] with Dr. Becerril 01/13 which revealed, severe triple vessel coronary artery disease. RCA has diffuse disease up to about 90%, critical disease involving the left circumflex and OM1 in the range of 9095 % stenosis. Intermediate disease involving the proximal LAD and severe lesion involving the first diagonal branch. Elevated left-sided filling pressures. Echocardiogram revealed EF 20%, hypokinesis of the mid to apical anterior, mid to apical inferior and mid inferior lateral tinajero, RV is mildly hypokinetic, trace aortic regurgitation and mild to moderate mitral regurgitation and trace to mild tricuspid regurgitation, RVSP of 26 mm On 01/14, patient's films were reviewed by Dr. Becerril and CT surgery team. Patient underwent successful PCI to distal left circumflex and proximal left circumflex with Dr. Becerril. 01/15/2022 Patient seen and examined at bedside, no acute distress. She denies any chest pain or shortness of breath. Patient having increased pain at Right groin site, hematoma noted. Tenderness to palpation. Blood pressure elevated this morning 179/75 HR 79. GENERAL: Well-appearing, well-nourished and in no acute distress. NECK: Supple without JVD LUNGS: Breath sounds clear to auscultation bilaterally. Respiration equal and unlabored. No wheezes, rales or rhonchi. HEART: Regular rate and rhythm Systolic ejection murmur at apex, No rubs or gallops. S1 and S2 heard. SKIN: Right groin clean site is tender to palpation, hematoma noted on pa lpation, 2+ peripheral pulses EXTREMITIES: Normal range of motion, no edema. No clubbing or cyanosis. Peripheral pulses intact. ASSESSMENT NSTEMI Severe triple vessel coronary artery disease Ischemic cardiomyopathy History of brain aneurysm status post clipping approximately 3 years ago Histoy of CML Peripheral artery disease status post bypass COPD Chronic nicotine dependence Type 2 diabetes Hypertension End stage renal disease on dialysis PLAN Increase beta chau coreg 6.25mg BID Lasix 60mg BID Hydralazine 50mg TID Lisinopril 5mg daily Continue dual antiplatelet therapy with aspirin and Plavix Continue atorvastatin 80mg daily Consider ultrasound of right grown tomorrow Further recommendations based on clinical course Nurse Practitioner note has been reviewed, I agree with a documented findings and plan of care. Patient was seen and examined. Objective - Vital Signs Vital signs: Vital Signs Temp 98.1 F 01/15/22 11:44 Pulse 70 01/15/22 11:44 Resp 17 01/15/22 11:44 BP 137/84 01/15/22 11:44 Pulse Ox 100 01/15/22 11:44 FiO2 Intake & Output 01/14/22 01/15/22 01/15/22 18:59 06:59 18:59 Intake Total 230 Output Total 1999 Balance -1770 Weight 65.9 kg Intake: IV 50 Oral 180 Output: Hemodialysis 1999 Other: Voiding Method Toilet Toilet Toilet Diaper Diaper Diaper # Voids 0 1 0 - Labs CBC & Chem 7: 01/15/22 08:21 01/15/22 04:05 Labs: Abnormal Lab Results - Last 24 Hours (Table) 01/14/22 01/14/22 01/14/22 Range/Units 08:11 16:49 20:05 RBC (3.80-5.40) m/uL Hgb (11.4-16.0) gm/dL Hct (34.0-46.0) % MCV (80.0-100.0) fL RDW (11.5-15.5) % Plt Count (150-450) k/uL Macrocytosis PT (9.0-12.0) sec INR (<1.2) Sodium (137-145) mmol/L BUN (7-17) mg/dL Creatinine (0.52-1.04) mg/dL Glucose (74-99) mg/dL POC Glucose (mg/dL) 204 H 257 H (70-110) mg/dL Hemoglobin A1c 8.6 H (0.0-6.0) % Calcium (8.4-10.2) mg/dL 01/15/22 01/15/22 01/15/22 Range/Units 04:05 04:05 06:22 RBC (3.80-5.40) m/uL Hgb (11.4-16.0) gm/dL Hct (34.0-46.0) % MCV (80.0-100.0) fL RDW (11.5-15.5) % Plt Count (150-450) k/uL Macrocytosis PT 12.8 H (9.0-12.0) sec INR 1.2 H (<1.2) Sodium 134 L (137-145) mmol/L BUN 38 H (7-17) mg/dL Creatinine 4.10 H (0.52-1.04) mg/dL Glucose 251 H (74-99) mg/dL POC Glucose (mg/dL) 308 H (70-110) mg/dL Hemoglobin A1c (0.0-6.0) % Calcium 8.0 L (8.4-10.2) mg/dL 01/15/22 01/15/22 Range/Units 08:21 11:40 RBC 3.02 L (3.80-5.40) m/uL Hgb 10.1 L (11.4-16.0) gm/dL Hct 32.2 L (34.0-46.0) % MCV 106.8 H (80.0-100.0) fL RDW 17.3 H (11.5-15.5) % Plt Count 115 L (150-450) k/uL Macrocytosis Marked A PT (9.0-12.0) sec INR (<1.2) Sodium (137-145) mmol/L BUN (7-17) mg/dL Creatinine (0.52-1.04) mg/dL Glucose (74-99) mg/dL POC Glucose (mg/dL) 298 H (70-110) mg/dL Hemoglobin A1c (0.0-6.0) % Calcium (8.4-10.2) mg/dL
--- NOTE | 2022-01-15 14:15 | P.PN ---
Subjective Progress Note Date: 01/15/22 Patient is a 52-year-old pleasant female transferred from the Hospital Where He Was at She Was Admitted for Acute Non-ST Elevation [place] and Found to Have a Triple-Vessel Disease. Patient Underwent Cardiac Catheterization Today and Had a Stent to Left Circumflex 2 Stents. Patient Is Chest Pain-Free at This Time 01/15/2022 Patient is evaluated post PCI with 2 stents to the left circumflex. A1C is found to be 8.6 and patients blood sugar remains elevated up to 300, insulin has been adjusted today. She is being followed by nephrology and cardiology. Her labs today showing white count 7.7, hgb 10.1, INR 1.2, sodium 134 which has improved with oral lasix and also her creatinine has slightly improved to 4.10 today. Coreg has been increased today. Patient does have hematoma to right groin cardiology aware. Review of Systems Constitutional: Denied any fatigue denied any fever. Cardio vascular: denied any chest pain, palpitations Gastrointestinal: denied any nausea, vomiting, diarrhea Pulmonary: Denied any shortness of breath cough Neurologic denied any new focal deficits All inpatient medications were reviewed and appropriate changes in these medications as dictated in the interval history and assessment and plan. PHYSICAL EXAMINATION: GENERAL: The patient is alert and oriented x3, not in any acute distress. Well developed, well nourished. HEENT: Pupils are round and equally reacting to light. EOMI. No scleral icterus. No conjunctival pallor. Normocephalic, atraumatic. No pharyngeal erythema. No thyromegaly. CARDIOVASCULAR: S1 and S2 present. No murmurs, rubs, or gallops. PULMONARY: Chest is clear to auscultation, no wheezing or crackles. ABDOMEN: Soft, nontender, nondistended, normoactive bowel sounds. No palpable organomegaly. MUSCULOSKELETAL: No joint swelling or deformity. EXTREMITIES: No cyanosis, clubbing, or pedal edema. NEUROLOGICAL: Gross neurological examination did not reveal any focal deficits. SKIN: No rashes. Assessment and plan Assessment -Acute non-ST elevation microinfarction: Patient underwent cardiac catheterization and stenting to left circumflex -Severe triple vessel coronary artery disease -Ischemic cardiomyopathy with LV function 20% -End-stage renal disease on hemodialysis -Hyponatremia hypervolemic -Hypertension -Type 2 diabetes mellitus continue with present regimen -History COPD not in acute exacerbation -Peripheral vascular disease -CVA/TIA -History of brain aneurysm with clipping about 3 years ago -Daily tobacco use Full Code Plan Cardiology adjusting medications Plan for hemodialysis today Monitor renal function, repeat labs in AM Monitor hematoma site received DDAVP yesterday possible ultrasound tomorrow The impression and plan of care has been dictated by Brea Boyer, Nurse Practitioner as directed. Dr. Dilip MD I have performed a history and physical examination and medical decision making of this patient, discussed the same with the dictator, and agree with the dictators assessment and plan as written, documented as a scribe. Based on total visit time, I have performed more than 50% of this visit. Objective - Vital Signs Vital signs: Vital Signs Temp 98.4 F 01/15/22 08:00 Pulse 79 01/15/22 08:00 Resp 18 01/15/22 08:00 BP 179/75 01/15/22 08:00 Pulse Ox 97 01/15/22 08:00 FiO2 Intake & Output 01/14/22 01/15/22 01/15/22 18:59 06:59 18:59 Intake Total 230 Output Total 1999 Balance -1770 Intake: IV 50 Oral 180 Output: Hemodialysis 1999 Other: Voiding Method Toilet Toilet Toilet Diaper Diaper Diaper # Voids 0 1 0 - Labs CBC & Chem 7: 01/15/22 08:21 01/15/22 04:05 Labs: Abnormal Lab Results - Last 24 Hours (Table) 01/14/22 01/14/22 01/14/22 Range/Units 08:11 08:11 16:49 RBC (3.80-5.40) m/uL Hgb (11.4-16.0) gm/dL Hct (34.0-46.0) % MCV (80.0-100.0) fL RDW (11.5-15.5) % Plt Count (150-450) k/uL Macrocytosis PT (9.0-12.0) sec INR (<1.2) Sodium (137-145) mmol/L BUN (7-17) mg/dL Creatinine (0.52-1.04) mg/dL Glucose (74-99) mg/dL POC Glucose (mg/dL) 204 H (70-110) mg/dL Hemoglobin A1c 8.6 H (0.0-6.0) % Calcium (8.4-10.2) mg/dL Phosphorus 6.3 H (2.5-4.5) mg/dL 01/14/22 01/15/22 01/15/22 Range/Units 20:05 04:05 04:05 RBC (3.80-5.40) m/uL Hgb (11.4-16.0) gm/dL Hct (34.0-46.0) % MCV (80.0-100.0) fL RDW (11.5-15.5) % Plt Count (150-450) k/uL Macrocytosis PT 12.8 H (9.0-12.0) sec INR 1.2 H (<1.2) Sodium 134 L (137-145) mmol/L BUN 38 H (7-17) mg/dL Creatinine 4.10 H (0.52-1.04) mg/dL Glucose 251 H (74-99) mg/dL POC Glucose (mg/dL) 257 H (70-110) mg/dL Hemoglobin A1c (0.0-6.0) % Calcium 8.0 L (8.4-10.2) mg/dL Phosphorus (2.5-4.5) mg/dL 01/15/22 01/15/22 Range/Units 06:22 08:21 RBC 3.02 L (3.80-5.40) m/uL Hgb 10.1 L (11.4-16.0) gm/dL Hct 32.2 L (34.0-46.0) % MCV 106.8 H (80.0-100.0) fL RDW 17.3 H (11.5-15.5) % Plt Count 115 L (150-450) k/uL Macrocytosis Marked A PT (9.0-12.0) sec INR (<1.2) Sodium (137-145) mmol/L BUN (7-17) mg/dL Creatinine (0.52-1.04) mg/dL Glucose (74-99) mg/dL POC Glucose (mg/dL) 308 H (70-110) mg/dL Hemoglobin A1c (0.0-6.0) % Calcium (8.4-10.2) mg/dL Phosphorus (2.5-4.5) mg/dL Assessment and Plan Time with Patient: Less than 30
[2022-01-15] MEDS: ALPRAZolam 0.5 MG TAB PO PRN ×2 (15:55→21:58)
[2022-01-15 16:43] LABS: Glucose,Whole Blood 265 mg/dL (70-110)
[2022-01-15] MEDS: carvediloL 6.25 MG TAB PO SCH (17:09)
[2022-01-15 20:41] LABS: Glucose,Whole Blood 143 mg/dL (70-110)
[2022-01-15] MEDS: ATORVASTATIN 80 MG TAB PO SCH (21:55)
[2022-01-15] MEDS: INSULIN DETEMIR (LEVEMIR) 100 UNIT/ML SYR SQ SCH (21:58)
[2022-01-16] MEDS: carvediloL 6.25 MG TAB PO SCH ×2 (06:32→16:40)
[2022-01-16 07:40] LABS: Glucose,Whole Blood 268 mg/dL (70-110)
[2022-01-16] MEDS: INSULIN ASPART (NovoLOG) 100 UNIT/ML VIAL SQ SCH ×7 (07:42→20:38)
[2022-01-16] MEDS ORDERED: HYDROmorphone 0.5 MG/0.5 ML SYRINGE IVP STA (07:55)
[2022-01-16 08:10] LABS: Calcium 7.8 mg/dL (8.4-10.2); Potassium 4.8 mmol/L (3.5-5.1)
[2022-01-16] MEDS ORDERED: ALTEPLASE 2 MG VIAL (CATHFLO) IV STA (09:37)
[2022-01-16] MEDS ORDERED: ALTEPLASE 2 MG VIAL (CATHFLO) MISCELLANE ONE (09:39)
--- NOTE | 2022-01-16 10:33 | P.PN ---
Subjective Patient is seen in follow-up for end-stage renal disease. She is maintained on hemodialysis on Wednesday schedule. Cardiac stents placed this admission. No chest pain or shortness of breath. Resting in bed. Scheduled for dialysis today. Vital signs are stable. General: Awake. No acute distress. HEENT: Head exam is unremarkable. LUNGS: Breath sounds decreased. HEART: Rate and Rhythm are regular. ABDOMEN: Soft, no distention. EXTREMITITES: No edema. Objective - Vital Signs Vital signs: Vital Signs Temp 98.2 F 01/16/22 08:00 Pulse 65 01/16/22 08:00 Resp 16 01/16/22 08:00 BP 172/80 01/16/22 08:00 Pulse Ox 97 01/16/22 04:00 FiO2 Intake & Output 01/15/22 01/16/22 01/16/22 18:59 06:59 18:59 Intake Total 418 240 Balance 418 240 Weight 65.9 kg Intake: Oral 418 240 Other: Voiding Method Toilet Toilet Diaper Diaper # Voids 1 1 - Labs CBC & Chem 7: 01/15/22 08:21 01/16/22 07:08 Labs: Abnormal Lab Results - Last 24 Hours (Table) 01/15/22 01/15/22 01/15/22 Range/Units 11:40 16:41 20:39 Sodium (137-145) mmol/L BUN (7-17) mg/dL Creatinine (0.52-1.04) mg/dL Glucose (74-99) mg/dL POC Glucose (mg/dL) 298 H 265 H 143 H (70-110) mg/dL Calcium (8.4-10.2) mg/dL 01/16/22 01/16/22 Range/Units 07:08 07:39 Sodium 134 L (137-145) mmol/L BUN 52 H (7-17) mg/dL Creatinine 5.56 H (0.52-1.04) mg/dL Glucose 241 H (74-99) mg/dL POC Glucose (mg/dL) 268 H (70-110) mg/dL Calcium 7.8 L (8.4-10.2) mg/dL Assessment and Plan Plan: Assessment: 1. End-stage renal disease maintained on hemodialysis on Wednesday schedule. 2. Coronary artery disease. Cardiology following. Status post 2 cardiac stents placed 01/14/2022. 3. Hypertension with chronic kidney disease. 4. Diabetes mellitus. 5. Chronic kidney disease mineral bone disease. Phosphorous 6.3. On PhosLo. Plan: Hemodialysis today. Increase dose of hydralazine to 75 mg 3 times daily - hold for systolic blood pressure less than 125.
--- NOTE | 2022-01-16 11:02 | US ---
EXAMINATION TYPE: US lower ext pseudo artery RT DATE OF EXAM: 01/16/2022 COMPARISON: NONE CLINICAL HISTORY: evaluate hematoma R groin after cardiac cath. Right heart cath on 01/14/22 EXAM PERFORMED: Grayscale and color Doppler duplex imaging performed of the groin, post cardiac oneil ter to assess for pseudoaneurysm. SIDE PERFORMED: Right Color and Waveform Doppler performed to assess for the presence of pseudoaneurysm; Is there ultrasound evidence of a pseudoaneurysm: No pseudo seen. Is there evidence of AV shunting: None seen Is there a fluid collection present: Hypoechoic/complex area seen anterior to vessels: 2.3 x 2.3 x 0. 6 cm. Very difficult and limited exam due to great amount of edema and unclear surgical history. Bypass gr aft within leg per patient, exact origin is unknown. *Unable to show color flow within two vessels: possible [place] femoral/deep femoral artery. No evidence of pseudo at this time. IMPRESSION: 1. No definite pseudoaneurysm evident. 2. Small hematoma may be present within the inguinal region. Follow-up can be performed as clinically indicated. 3. There may be some [place] vessel occlusion. Color flow is evident within some lower extremity vesse ls.
[2022-01-16 12:03] LABS: Glucose,Whole Blood 170 mg/dL (70-110)
[2022-01-16] MEDS: ASPIRIN 81 MG PO SCH (12:56)
[2022-01-16] MEDS: CLOPIDOGREL 75 MG TAB PO SCH (12:57)
[2022-01-16] MEDS: FUROSEMIDE 20 MG TAB PO SCH ×2 (12:57→20:38)
[2022-01-16] MEDS: lisinopriL 5 MG TAB PO SCH (12:57)
[2022-01-16] MEDS: FOLIC ACID 1 MG TAB PO SCH (12:57)
[2022-01-16] MEDS: hydrALAZINE HCL 25 MG TAB PO SCH ×3 (12:57→21:39)
[2022-01-16] MEDS: FOLIC ACID-VIT B COMPLEX-VIT C 1 CAP PO SCH (13:00)
[2022-01-16] MEDS ORDERED: HEPARIN SODIUM 1,000 UN/ML (10ML VL) ONE ×2 (13:45→14:05)
--- NOTE | 2022-01-16 13:50 | P.PCN ---
Description of Procedure: Preoperative diagnoses is acute chronic renal failure Postoperative same Procedure placement of a 24 same dialysis catheter ultrasound-guided right femoral approach Patient brought to the [facility] right groin was prepped and draped applied sterile manner. 1% lidocaine for infected. Ultrasound-guided micropuncture introducer right femoral vein and micropuncture guidewire was passed. Then we passed a dilator on the top of the guidewire then we passed a regular guidewire was parked at the inferior vena cava. After that dilator over was on top the guidewire then replaced a triple-lumen dialysis catheter flushed with heparin saline and Hep-Lock secured with 3-0 nylon dressing applied patient tolerated the procedure well
--- NOTE | 2022-01-16 13:52 | P.PN ---
Subjective This is a 51-year-old female past medical history of non-ischemic cardiomyopathy, coronary artery disease with 40% mid LAD stenosis from cardiac cath 12/2018, brain aneurysm status post clipping approximately 3 years ago, CML, peripheral artery disease status post bypass, COPD, chronic nicotine dependence, type 2 diabetes, hypertension, end stage renal disease on dialysis. She follows with Dr. Becerril. She presented to [facility] with complaints of chest pain radiating to her shoulder and right arm with associated nausea and diaphoresis. Patient diagnosed as NSTEMI. Patient was transferred to [facility] She underwent cardiac catheterization at [facility] with Dr. Becerril 01/13 which revealed, severe triple vessel coronary artery disease. RCA has diffuse disease up to about 90%, critical disease involving the left circumflex and OM1 in the range of 9095 % stenosis. Intermediate disease involving the proximal LAD and severe lesion involving the first diagonal branch. Elevated left-sided filling pressures. Echocardiogram revealed EF 20%, hypokinesis of the mid to apical anterior, mid to apical inferior and mid inferior lateral tinajero, RV is mildly hypokinetic, trace aortic regurgitation and mild to moderate mitral regurgitation and trace to mild tricuspid regurgitation, RVSP of 26 mm On 01/14, patient's films were reviewed by Dr. Becerril and CT surgery team. Patient underwent successful PCI to distal left circumflex and proximal left circumflex with Dr. Becerril. 01/16/2022 Patient seen and examined at bedside, no acute distress. She denies any chest pain or shortness of breath. Patient having increased pain at Right groin site, hematoma noted. Tenderness to palpation. US of the right groin revealed no pseudoaneurysm evident, small hematoma may be present within the inguinal region. There may be some lower [place] vessel occlusion. Blood pressure remains elevated at 172/80, heart rate 65, afebrile. Hydralazine increased 75mg TID per nephro GENERAL: Well-appearing, well-nourished and in no acute distress. NECK: Supple without JVD LUNGS: Breath sounds clear to auscultation bilaterally. Respiration equal and unlabored. No wheezes, rales or rhonchi. HEART: Regular rate and rhythm Systolic ejection murmur at apex, No rubs or gallops. S1 and S2 heard. SKIN: Right groin clean site is tender to palpation, hematoma noted on palpation, 2+ peripheral pulses EXTREMITIES: Normal range of motion, no edema. No clubbing or cyanosis. Peripheral pulses intact. ASSESSMENT NSTEMI Severe triple vessel coronary artery disease Ischemic cardiomyopathy History of brain aneurysm status post clipping approximately 3 years ago Histoy of CML Peripheral artery disease status post bypass COPD Chronic nicotine dependence Type 2 diabetes Hypertension End stage renal disease on dialysis PLAN Continue dual antiplatelet therapy with aspirin and Plavix Continue atorvastatin 80mg daily Hydralazine increased per nephrology 75mg TID Continue coreg 6.25mg BID Lasix 60mg BID Lisinopril 5mg daily Further recommendations based on clinical course, hopefully discharge in the next 24 hours Nurse Practitioner note has been reviewed, I agree with a documented findings and plan of care. Patient was seen and examined. Objective - Vital Signs Vital signs: Vital Signs Temp 97.9 F 01/16/22 12:00 Pulse 63 01/16/22 12:00 Resp 15 01/16/22 12:00 BP 176/79 01/16/22 12:00 Pulse Ox 97 01/16/22 12:00 FiO2 Intake & Output 01/15/22 01/16/22 01/16/22 18:59 06:59 18:59 Intake Total 418 240 840 Balance 418 240 840 Weight 65.9 kg Intake: Oral 418 240 840 Other: Voiding Method Toilet Toilet Diaper Diaper # Voids 1 1 - Labs CBC & Chem 7: 01/15/22 08:21 01/16/22 07:08 Labs: Abnormal Lab Results - Last 24 Hours (Table) 01/15/22 01/15/22 01/16/22 Range/Units 16:41 20:39 07:08 Sodium 134 L (137-145) mmol/L BUN 52 H (7-17) mg/dL Creatinine 5.56 H (0.52-1.04) mg/dL Glucose 241 H (74-99) mg/dL POC Glucose (mg/dL) 265 H 143 H (70-110) mg/dL Calcium 7.8 L (8.4-10.2) mg/dL 01/16/22 01/16/22 Range/Units 07:39 11:50 Sodium (137-145) mmol/L BUN (7-17) mg/dL Creatinine (0.52-1.04) mg/dL Glucose (74-99) mg/dL POC Glucose (mg/dL) 268 H 170 H (70-110) mg/dL Calcium (8.4-10.2) mg/dL
[2022-01-16] MEDS ORDERED: CLINDAMYCIN 600 MG in DEXTROSE 5% IN WATER 50 ML IVPB STA ×2 (14:00)
[2022-01-16] MEDS ORDERED: fentaNYL (PF) 50 MCG/ML 2 ML AMP ONE (14:03)
[2022-01-16] MEDS ORDERED: LIDOCAINE 1% INJ 10MG/ML (30 ML VIAL-PF) SQ ONE (14:04)
[2022-01-16] MEDS ORDERED: fentaNYL (PF) 50 MCG/ML 2 ML AMP IV ONE (14:06)
[2022-01-16] MEDS ORDERED: SODIUM CHLORIDE 0.9% 250 ML IV ONE (14:15)
[2022-01-16] MEDS ORDERED: HEPARIN SODIUM 1,000 UN/ML (10ML VL) IV ONE (14:23)
--- NOTE | 2022-01-16 14:52 | CDI ---
Documentation Clarification Form Date: 01/16/2022 02:13:23 PM From: Nora Moeller RN, CCDS Admit Date: 01/13/2022 04:25:00 PM Patient Name: Chandni Her Visit Number: [id number] Discharge Date: ATTENTION: The Clinical Documentation Specialists (CDI) and [facility] Coding Staff appreciate your assistance in clarifying documentation. Please respond to the clarification below the line at the bottom and electronically sign. The CDI & [facility] Coding staff will review the response and follow-up if needed. Please note: Queries are made part of the Legal Health Record. If you have any questions, please contact the author of this message via ITS. Dr. Ananda Becerril Right groin hematoma is documented in the cardiology progress note on 01/15/22 and patient had left heart catherization 01/13/2022 with PTCA drug-eluting stent x 2, right common femoral artery approach on 01/14/2022. Additional clarification is requested regarding the relationship, if any, that exists between the diagnosis and the procedure. Patients Admitting Diagnosis: NSTEMI, Severe triple vessel coronary artery disease Post-Operative Diagnosis: Same Procedure performed: PCI to distal circumflex and proximal left circumflex drug- eluting stent x 2, right common femoral artery approach on 01/14/2022. History/Risk Factors: Non-ischemic cardiomyopathy, Coronary artery disease, COPD Diabetes mellitus, Hypertension, CHF Clinical Indicators: 51-year-old female with complaints of chest pain diagnosed as NSTEMI. On 01/15/22 having increased pain at right groin site, hematoma noted. Tenderness to palpation. Blood [id number]/75 HR 79 18 98.4 @08:00. 2+ peripheral pulses Treatment: Telemetry monitoring Coreg 6.25 MG PO BID, Lasix 60MG PO BID, Hydralazine 50 mg TID ASA 81 MG PO DAILY 01/16 Ultrasound Right groin: no definite pseudo aneurysm evident. Small hematoma may be present within the inguinal region. There may be some [place] vessel occlusion. What relationship, if any, exists between the diagnosis of right groin hematoma and the procedure? [ ] Right groin hematoma is a complication of surgical procedure [ ] Right groin hematoma is an expected outcome of the surgical procedure [ ] Right groin hematoma is related to patients co-morbid condition(s) of [insert co-morbid dxs] & not a complication of the procedure [ ] Right groin hematoma is small and clinically not significant [ ] Other please specify ____ [ ] Unable to determine (Template Last Revised: July 2020) MTDD
--- NOTE | 2022-01-16 15:22 | CDI ---
Documentation Clarification Form Date: 01/16/2022 02:53:20 PM From: Nora Moeller RN, CCDS Admit Date: 01/13/2022 04:25:00 PM Patient Name: Chandni Her Visit Number: [id number] Discharge Date: ATTENTION: The Clinical Documentation Specialists (CDI) and [facility] Coding Staff appreciate your assistance in clarifying documentation. Please respond to the clarification below the line at the bottom and electronically sign. The CDI & [facility] Coding staff will review the response and follow-up if needed. Please note: Queries are made part of the Legal Health Record. If you have any questions, please contact the author of this message via ITS. Dr. Ananda Becerril Your patient has the documented past medical history of unspecified CHF in the H/P and subsequent progress notes with ongoing treatment. Additional information regarding the type and acuity] of CHF is requested. History/Risk Factors: Non-ischemic cardiomyopathy, Coronary artery disease, COPD Diabetes Mellitus, Hypertension Clinical Indicators: 51-year-old female with complaints of chest pain diagnosed as NSTEMI. Her past medical history has congestive heart failure. Echocardiogram revealed EF 20 % hypokinesis of the mid to apical anterior, mid to apical inferior and mid inferior lateral tinajero, RV is mildly hypoinetic, trace aortic regurgitation and mild to moderate mitral regurgitation and trace to mild tricuspid regurgitation, RVSP of 26 mm per cardiology progress notes on 01/15/2022. 01/16 @ 12:00VS/Pulse OX: 176/79 63 15 97.9 97 % RA Treatment: Telemetry monitoring Coreg 6.25 MG PO BID, Lasix 60MG PO BID, Hydralazine 50 mg TID, Lipitor 80 MG PO HS ASA 81 MG PO DAILY, Plavix 75 MG PO Daily In your professional opinion, can you please clarify the acuity and type of CHF if known? [ ] Acute Systolic Heart Failure (reduced EF) [ ] Chronic Systolic Heart Failure (reduced EF) [ ] Acute on Chronic Systolic Heart Failure (reduced EF) [ ] Acute Diastolic Heart Failure (preserved EF) [ ] Chronic Diastolic Heart Failure (preserved EF) [ ] Acute on Chronic Diastolic Heart Failure (preserved EF) [ ] Acute Systolic & Diastolic Heart Failure [ ] Chronic Systolic & Diastolic Heart Failure [ ] Acute on Chronic Heart Failure Systolic & Diastolic Heart Failure [ ] Other, please specify [ ] Unable to determine (Template Last Revised: June 2020) MTDD
--- NOTE | 2022-01-16 15:58 | IR ---
EXAMINATION TYPE: IR cvc insert central tunneled DATE OF EXAM: 01/16/2022 COMPARISON: NONE HISTORY: Fluoroscopy time. Fluoroscopy was provided to the referring clinician.
[2022-01-16] MEDS ORDERED: diphenhydrAMINE 25 MG CAP PO STA (16:33)
--- NOTE | 2022-01-16 16:45 | XR ---
EXAMINATION TYPE: XR chest 1V portable DATE OF EXAM: 01/16/2022 COMPARISON: 04/17/2020 HISTORY: Catheter placement TECHNIQUE: Single view FINDINGS: There is right-sided central venous catheter tip in the top of the right atrium. Heart is e nlarged. No heart failure. No pneumothorax. IMPRESSION: Catheter in good position. Mild cardiomegaly.
[2022-01-16 17:06] LABS: Glucose,Whole Blood 149 mg/dL (70-110)
--- NOTE | 2022-01-16 18:36 | P.PN ---
Subjective Progress Note Date: 01/16/22 Patient is a 52-year-old pleasant female transferred from the Hospital Where He Was at She Was Admitted for Acute Non-ST Elevation [place] and Found to Have a Triple-Vessel Disease. Patient Underwent Cardiac Catheterization Today and Had a Stent to Left Circumflex 2 Stents. Patient Is Chest Pain-Free at This Time 01/15/2022 Patient is evaluated post PCI with 2 stents to the left circumflex. A1C is found to be 8.6 and patients blood sugar remains elevated up to 300, insulin has been adjusted today. She is being followed by nephrology and cardiology. Her labs today showing white count 7.7, hgb 10.1, INR 1.2, sodium 134 which has improved with oral lasix and also her creatinine has slightly improved to 4.10 today. Coreg has been increased today. Patient does have hematoma to right groin cardiology aware. 01/16/2022 Patient evaluated today she is pending hemodialysis. They were unable to access her dialysis port after alteplase. Dr Sheffield consulted for dialysis access evaluation plan is for hemodialysis tomorrow. She follows a MWF schedule. Sodium today is 134, creatinine 5.56. Glucose is 170. Afebrile, heart rate 63, blood pressure 176/79, 97%. She had ultrasound of right groin, there is no psuedoaneruysm and groin is softer today with no ecchymosis evident. Review of Systems Constitutional: Denied any fatigue denied any fever. Cardio vascular: denied any chest pain, palpitations Gastrointestinal: denied any nausea, vomiting, diarrhea Pulmonary: Denied any shortness of breath cough Neurologic denied any new focal deficits All inpatient medications were reviewed and appropriate changes in these medications as dictated in the interval history and assessment and plan. PHYSICAL EXAMINATION: GENERAL: The patient is alert and oriented x3, not in any acute distress. Well developed, well nourished. HEENT: Pupils are round and equally reacting to light. EOMI. No scleral icterus. No conjunctival pallor. Normocephalic, atraumatic. No pharyngeal erythema. No thyromegaly. CARDIOVASCULAR: S1 and S2 present. No murmurs, rubs, or gallops. PULMONARY: Chest is clear to auscultation, no wheezing or crackles. ABDOMEN: Soft, nontender, nondistended, normoactive bowel sounds. No palpable organomegaly. MUSCULOSKELETAL: No joint swelling or deformity. EXTREMITIES: No cyanosis, clubbing, or pedal edema. NEUROLOGICAL: Gross neurological examination did not reveal any focal deficits. SKIN: No rashes. Assessment and plan Assessment -Acute non-ST elevation myocardial infarction: Patient underwent cardiac catheterization and stenting to left circumflex -Severe triple vessel coronary artery disease -Ischemic cardiomyopathy with LV function 20% -End-stage renal disease on hemodialysis -Hyponatremia hypervolemic -Hypertension -Type 2 diabetes mellitus continue with present regimen -History COPD not in acute exacerbation -Peripheral vascular disease -CVA/TIA -History of brain aneurysm with clipping about 3 years ago -Daily tobacco use Full Code Plan Cardiology adjusting medications Vascular consult for hemodialysis access and patient will undergo hemodialysis tomorrow Monitor renal function Monitor hematoma site no evidence for pseudoaneryusm on ultrasound Possible DC in the next 24 hours The impression and plan of care has been dictated by Brea Boyer Nurse Practitioner as directed. Dr. Dilip MD I have performed a history and physical examination and medical decision making of this patient, discussed the same with the dictator, and agree with the dictators assessment and plan as written, documented as a scribe. Based on total visit time, I have performed more than 50% of this visit. Objective - Vital Signs Vital signs: Vital Signs Temp 97.9 F 01/16/22 12:00 Pulse 63 01/16/22 12:00 Resp 15 01/16/22 12:00 BP 176/79 01/16/22 12:00 Pulse Ox 97 01/16/22 12:00 FiO2 Intake & Output 01/15/22 01/16/22 01/16/22 18:59 06:59 18:59 Intake Total 418 240 894 Balance 418 240 894 Weight 65.9 kg Intake: IV 54 Oral 418 240 840 Other: Voiding Method Toilet Toilet Diaper Diaper # Voids 1 1 - Labs CBC & Chem 7: 01/15/22 08:21 01/16/22 07:08 Labs: Abnormal Lab Results - Last 24 Hours (Table) 01/15/22 01/15/22 01/16/22 Range/Units 16:41 20:39 07:08 Sodium 134 L (137-145) mmol/L BUN 52 H (7-17) mg/dL Creatinine 5.56 H (0.52-1.04) mg/dL Glucose 241 H (74-99) mg/dL POC Glucose (mg/dL) 265 H 143 H (70-110) mg/dL Calcium 7.8 L (8.4-10.2) mg/dL 01/16/22 01/16/22 Range/Units 07:39 11:50 Sodium (137-145) mmol/L BUN (7-17) mg/dL Creatinine (0.52-1.04) mg/dL Glucose (74-99) mg/dL POC Glucose (mg/dL) 268 H 170 H (70-110) mg/dL Calcium (8.4-10.2) mg/dL Assessment and Plan Time with Patient: Less than 30
[2022-01-16 19:58] LABS: Glucose,Whole Blood 258 mg/dL (70-110)
[2022-01-16] MEDS: ATORVASTATIN 80 MG TAB PO SCH (20:38)
[2022-01-16] MEDS: INSULIN DETEMIR (LEVEMIR) 100 UNIT/ML SYR SQ SCH (20:38)
[2022-01-16] MEDS: traMADol 50 MG TAB PO SCH (21:40)
[2022-01-16] MEDS: ALPRAZolam 0.5 MG TAB PO PRN (23:38)
[2022-01-16] MEDS: ACETAMINOPHEN TAB 325 MG TAB PO PRN (23:38)
[2022-01-17] MEDS: ACETAMINOPHEN TAB 325 MG TAB PO PRN (05:24)
--- NOTE | 2022-01-17 06:39 | P.PN ---
Subjective Progress Note Date: 01/17/22 Principal diagnosis: Acute coronary stent The patient is a pleasant 89-year-old female patient with end stage renal disease on dialysis as well as diabetes and hypertension and dyslipidemia was admitted recently to the hospital with a chest discomfort and ruled in for acute coronary event. She underwent a heart catheterization and was found to have critical disease involving the LCx OM. She underwent successful stenting of that. She was seen this morning. She stated that she has been feeling better indeterminable of the pain in the groin. She had a hematoma but no pse udoaneurysm based on the Doppler. Overall the right groin is much better and the pain has improved as well. She is complaining of pain above the dialysis catheter. She is going to undergo dialysis today. Hemodynamically she is hypertensive but I would wait until after dialysis to be addressed the pressure again. If she remains hematoma the neck is stable after dialysis she potentially can be discharged home from a perivascular standpoint of view and I'll follow-up with the patient in a week and the office Objective - Vital Signs Vital signs: Vital Signs Temp 98.0 F 01/17/22 04:00 Pulse 68 01/17/22 04:00 Resp 16 01/17/22 04:00 BP 149/74 01/17/22 04:00 Pulse Ox 97 01/17/22 04:00 FiO2 Intake & Output 01/16/22 01/16/22 01/17/22 06:59 18:59 06:59 Intake Total 240 2074 540 Output Total 200 Balance 240 1874 540 Intake: IV 154 Oral 240 1920 540 Output: Urine 200 Other: Voiding Method Toilet Toilet Diaper Diaper # Voids 1 2 - Constitutional General appearance: Present: no acute distress - Respiratory Respiratory: bilateral: diminished - Cardiovascular Rhythm: regular Abnormal Heart Sounds: Present: systolic murmur - Labs CBC & Chem 7: 01/15/22 08:21 01/16/22 07:08 Labs: Abnormal Lab Results - Last 24 Hours (Table) 01/16/22 01/16/22 01/16/22 Range/Units 07:08 07:39 11:50 Sodium 134 L (137-145) mmol/L BUN 52 H (7-17) mg/dL Creatinine 5.56 H (0.52-1.04) mg/dL Glucose 241 H (74-99) mg/dL POC Glucose (mg/dL) 268 H 170 H (70-110) mg/dL Calcium 7.8 L (8.4-10.2) mg/dL 01/16/22 01/16/22 Range/Units 16:41 19:53 Sodium (137-145) mmol/L BUN (7-17) mg/dL Creatinine (0.52-1.04) mg/dL Glucose (74-99) mg/dL POC Glucose (mg/dL) 149 H 258 H (70-110) mg/dL Calcium (8.4-10.2) mg/dL Assessment and Plan Assessment: Assessment Acute coronary syndrome Status post PCI of LCx Severe cardiomyopathy Incisional disease on dialysis Multiple comorbid conditions you Plan Continue the current medical regimen Continue dual antiplatelet therapy along with high intensity statin Patient is going to undergo dialysis today If she remains hemodynamics stable after dialysis she potentially can be discharged
[2022-01-17] MEDS: carvediloL 6.25 MG TAB PO SCH ×2 (06:45→18:38)
[2022-01-17] MEDS: traMADol 50 MG TAB PO SCH ×4 (09:00→18:35)
[2022-01-17] MEDS: INSULIN ASPART (NovoLOG) 100 UNIT/ML VIAL SQ SCH ×6 (09:39→18:39)
[2022-01-17 09:42] LABS: Glucose,Whole Blood 309 mg/dL (70-110)
--- NOTE | 2022-01-17 10:25 | P.PN ---
Subjective Patient is seen in follow-up for end-stage renal disease. She is maintained on hemodialysis on Wednesday schedule. Cardiac stents placed this admission. No chest pain or shortness of breath. Resting in bed. permacath malfunctioned and was replaced yesterday. Will get dialysis today. Vital signs are stable. General: Awake. No acute distress. HEENT: Head exam is unremarkable. LUNGS: Breath sounds decreased. HEART: Rate and Rhythm are regular. ABDOMEN: Soft, no distention. EXTREMITITES: No edema. Objective - Vital Signs Vital signs: Vital Signs Temp 98.2 F 01/17/22 07:40 Pulse 70 01/17/22 07:40 Resp 16 01/17/22 07:40 BP 143/64 01/17/22 07:40 Pulse Ox 98 01/17/22 07:40 FiO2 Intake & Output 01/16/22 01/17/22 01/17/22 18:59 06:59 18:59 Intake Total 2074 540 240 Output Total 200 Balance 1874 540 240 Intake: IV 154 Oral 1920 540 240 Output: Urine 200 Other: Voiding Method Toilet Diaper # Voids 2 - Labs CBC & Chem 7: 01/15/22 08:21 01/16/22 07:08 Labs: Abnormal Lab Results - Last 24 Hours (Table) 01/16/22 01/16/22 01/16/22 Range/Units 11:50 16:41 19:53 POC Glucose (mg/dL) 170 H 149 H 258 H (70-110) mg/dL 01/17/22 Range/Units 09:34 POC Glucose (mg/dL) 309 H (70-110) mg/dL Assessment and Plan Plan: Assessment: 1. End-stage renal disease maintained on hemodialysis on Wednesday schedule. 2. Coronary artery disease. Cardiology following. Status post 2 cardiac stents placed 01/14/2022. 3. Hypertension with chronic kidney disease. stable. 4. Diabetes mellitus. 5. Chronic kidney disease mineral bone disease. Phosphorous 6.3. On PhosLo. Plan: Hemodialysis today. Increase dose of hydralazine to 100 mg 3 times daily - hold for systolic blood pressure less than 125. possible discharge after dialysis today.
[2022-01-17 11:50] LABS: Glucose,Whole Blood 239 mg/dL (70-110)
[2022-01-17] MEDS: ASPIRIN 81 MG PO SCH (13:20)
[2022-01-17] MEDS: FUROSEMIDE 20 MG TAB PO SCH (13:20)
[2022-01-17] MEDS: FOLIC ACID 1 MG TAB PO SCH (13:20)
[2022-01-17] MEDS: CLOPIDOGREL 75 MG TAB PO SCH (13:20)
[2022-01-17] MEDS: lisinopriL 5 MG TAB PO SCH (13:21)
[2022-01-17] MEDS: hydrALAZINE HCL 25 MG TAB PO SCH (13:32)
[2022-01-17] MEDS ORDERED: hydrALAZINE HCL 50 MG TAB PO SCH (16:00)
[2022-01-17 16:46] LABS: Glucose,Whole Blood 171 mg/dL (70-110)
[2022-01-17] MEDS: FOLIC ACID-VIT B COMPLEX-VIT C 1 CAP PO SCH (18:38)
[2022-01-17 19:26] VITALS: BP 151/75; PULSE 67; RESP 19; TEMP 98
[2022-01-17] MEDS: INSULIN DETEMIR (LEVEMIR) 100 UNIT/ML SYR SQ SCH (21:03)
--- NOTE | 2022-01-18 23:23 | P.DS ---
Providers Date of admission: 01/13/22 16:25 Attending physician: Neel Anderson MD Consults: 01/13/22 21:42 Consult Physician Routine Consulting Provider: Rosario Goodman Consult Reason/Comments: NSTEMI Do you want consulting provider notified?: Yes, Notify in am 01/13/22 21:43 Consult Physician Routine Consulting Provider: Paxton Hinds Consult Reason/Comments: Dialysis patient Do you want consulting provider notified?: Yes, Notify in am 01/14/22 12:05 Consult Physician Routine Consulting Provider: [facility] Consult Reason/Comments: Post Interventional patient Do you want consulting provider notified?: Already Contacted 01/16/22 12:46 Consult Physician Routine Consulting Provider: Jose A Sheffield Consult Reason/Comments: Placement of HD catheter Do you want consulting provider notified?: Yes Primary care physician: Catalina Vivas [facility] Course: Diagnosis -Acute non-ST elevation myocardial infarction: Patient underwent cardiac catheterization and stenting to left circumflex -Severe triple vessel coronary artery disease -Ischemic cardiomyopathy with LV function 20% -End-stage renal disease on hemodialysis -Hyponatremia hypervolemic -Hypertension -Type 2 diabetes mellitus continue with present regimen -History COPD not in acute exacerbation -Peripheral vascular disease -CVA/TIA -History of brain aneurysm with clipping about 3 years ago -Daily tobacco use Full Code Discharge disposition Patient is stable for discharge after hemodialysis. Blood pressure has improved. Nephrology and cardiology have cleared patient. She did develop hematoma to her right groin post cath and it is currently stable at this time and soft. Patient to follow up with PCP Dr Vivas in 1 to 2 days. Follow up with cardiology and nephrology. Resume outpatient hemodialysis MWF, repeat labs in with wednesday dialysis. Hospital course This komal 51 year old female with medical history end stage renal disease on hemodiaylsis MWF, diabetes mellitus, COPD, peripheral vascular disease, current daily tobacco use, and also brain aneurysm with clipping about 3 years ago. Patient was transferred to [facility] from [facility] where she was admitted for non ST elevation [place] and was found to have triple-vessel disease. She was transferred and brought to the [facility] and underwent cardiac stenting to the distal and proximal left circumflex. Echocardiogram from outside hospital showing LV function of 20% with ischemic cardiomyopathy. Patient did develop hematoma to right groin post PCI and duplex was completed showing with no evidence of pseudoaneurysm there is a hypoechoic complex area seen anterior to vessels 2.3 x 2.3 x 0.6 cm. Possible small hematoma may be present within the inguinal region. There may be some [place] vessel occlusion. Patients hospital course was complicated by difficulty accessing dialysis port and patient was evaluated by vascular surgeon and patient had a new triple lumen dialysis catheter placed at the inferior vena cava. After dialysis on 01/17/2022 patient is cleared by discharge by nephrology. Her hydalazine was increased to 100 mg TID. Also recommend to increase lantus to 20 units at HS. Patient is also discharged on plavix and lisinopril. Blood pressure 151/75. 01/17/2022 Patient evaluated today resting in bed. She denies shortness of breath, no chest pain. She denies nausea vomiting or diarrhea. Lungs are clear S1 S2 auscultated, abdomen is soft and nontender. Groin is soft and patients new hemodialysis catheter is functioning and she was able to undergo hemodialysis today. Her next hemodialysis session is scheduled for wednesday. Most recent labs showing sodium 134, potassium 4.8, BUN 52 creatinine 5.56. Blood glucose 170. Calcium 7.8. Patients lungs are clear S1 S2 auscultated abdomen is soft and nontender. Focal neurological exam is negative. She does have some focal tenderness surrounding hemodialysis catheter. She is afebrile, heart rate 67, blood pressure 151/75, 100% room air. Patient has been cleared for discharge by cardiology and nephrology. Please see medication reconciliation for list of current medications. Thank you for allowing us participate in the care of this patient. Total time taken in discharge planning greater than 35 minutes The impression and plan of care has been dictated by Brea Boyer, Nurse Practitioner as directed. Dr. Dilip MD I have performed a history and physical examination and medical decision making of this patient, discussed the same with the dictator, and agree with the dictators assessment and plan as written, documented as a scribe. Based on total visit time, I have performed more than 50% of this visit. Patient Condition at Discharge: Fair Plan - Discharge Summary New Discharge Prescriptions: New Clopidogrel [Plavix] 75 mg PO DAILY #90 tab lisinopriL [Zestril] 5 mg PO DAILY #30 tab hydrALAZINE HCL [Apresoline] 100 mg PO TID 30 Days #90 tab Insulin Glargine,Hum.rec.anlog [Lantus Solostar Pen] 20 units SQ HS #1 each Continue Atorvastatin [Lipitor] 80 mg PO HS Aspirin 81 mg PO DAILY 30 Days #30 chew Folic Acid 0.4 mg PO DAILY Ondansetron [Zofran ODT] 4 mg PO DAILY PRN PRN Reason: Nausea Albuterol Sulfate [Proair Hfa] 2 puff INHALATION RT-Q6H PRN PRN Reason: Shortness Of Breath Furosemide [Lasix] 40 mg PO BID Furosemide [Lasix] 20 mg PO BID carvediloL [Coreg] 3.125 mg PO BID Miriam-Thalia 1 tab PO DAILY Albuterol Nebulized [Ventolin Nebulized] 2.5 mg INHALATION RT-TID PRN PRN Reason: Shortness Of Breath Changed Insulin Lispro [Admelog Solostar] 7 units SQ ACHS #1 Discontinued Insulin Glargine,Hum.rec.anlog [Lantus Solostar Pen] 15 unit SQ HS lisinopriL [Zestril] 2.5 mg PO DAILY Discharge Medication List Atorvastatin [Lipitor] 80 mg PO HS 06/30/17 [History] Aspirin 81 mg PO DAILY 30 Days #30 chew 04/21/20 [Rx] Albuterol Nebulized [Ventolin Nebulized] 2.5 mg INHALATION RT-TID PRN 02/13/21 [History] Folic Acid 0.4 mg PO DAILY 02/13/21 [History] Albuterol Sulfate [Proair Hfa] 2 puff INHALATION RT-Q6H PRN 01/13/22 [History] Furosemide [Lasix] 20 mg PO BID 01/13/22 [History] Furosemide [Lasix] 40 mg PO BID 01/13/22 [History] Ondansetron [Zofran ODT] 4 mg PO DAILY PRN 01/13/22 [History] Miriam-Thalia 1 tab PO DAILY 01/13/22 [History] carvediloL [Coreg] 3.125 mg PO BID 01/13/22 [History] Clopidogrel [Plavix] 75 mg PO DAILY #90 tab 01/15/22 [Rx] lisinopriL [Zestril] 5 mg PO DAILY #30 tab 01/16/22 [Rx] Insulin Glargine,Hum.rec.anlog [Lantus Solostar Pen] 20 units SQ HS #1 each 01/17/22 [Rx] Insulin Lispro [Admelog Solostar] 7 units SQ ACHS #1 01/17/22 [Rx] hydrALAZINE HCL [Apresoline] 100 mg PO TID 30 Days #90 tab 01/17/22 [Rx] Follow up Appointment(s)/Referral(s): Ananda Becerril MD [STAFF PHYSICIAN] - 1 Week Catalina Vivas MD [Primary Care Provider] - 1-2 Days Paxton Hinds DO [STAFF PHYSICIAN] - 1 Week Ambulatory/Diagnostic Orders: Basic Metabolic Panel [LAB.AMB] Location: None Selected Complete Blood Count w/diff [LAB.AMB] Time Frame: 3 Days, Location: None Selected Activity/Diet/Wound Care/Special Instructions: Recommend to continue on increased dose of hydralazine 100 mg TID and hold for systolic blood pressure less than 125 Continue dialysis as scheduled MWF Repeat labs with wednesday Dialysis Follow up with your PCP in 1 to 2 days Discharge Disposition: HOME WITH HOME HEALTH SERVICES
--- NOTE | 2022-01-19 07:43 | PCN ---
PROCEDURE NOTE PREOPERATIVE DIAGNOSIS: Malfunction of the dialysis catheter with history of chronic renal failure. PROCEDURE PERFORMED: Placement of a 23 cm dialysis catheter, right jugular approach. DESCRIPTION OF PROCEDURE: This patient was brought to the labor relations teacher. Right side of the neck and chest were prepped and draped in appropriate sterile manner. A small incision was made to the neck and catheter was identified and divided. Guidewire was passed through the catheter, which was parked in the inferior vena cava. Then tunnel was created. Through the tunnel, we brought 23 cm dialysis catheter. Sheath was advanced on top of the guidewire and through the sheath we introduced the dialysis catheter. Catheter was at the tip of the superior vena cavoatrial junction. Flushed with heparin saline and hep-locked, secured with 3-0 nylon. Dressing applied. Patient tolerated the procedure well. MMODL / IJN: [id number] /
--- NOTE | 2022-01-30 09:46 | CDI ---
Documentation Clarification Form Date: 01/16/2022 02:13:00 PM From: Nora Moeller RN, CCDS Admit Date: 01/13/2022 04:25:00 PM Patient Name: Chandni Her Visit Number: [id number] Discharge Date: 01/17/2022 09:00:00 PM ATTENTION: The Clinical Documentation Specialists (CDI) and [facility] Coding Staff appreciate your assistance in clarifying documentation. Please respond to the clarification below the line at the bottom and electronically sign. The CDI & [facility] Coding staff will review the response and follow-up if needed. Please note: Queries are made part of the Legal Health Record. If you have any questions, please contact the author of this message via ITS. Dr. Ananda Becerril Right groin hematoma is documented in the cardiology progress note on 01/15/22 and patient had left heart cauterization with PTCA drug-eluting stent x 2, right common femoral artery approach on 01/14/2022. Additional clarification is requested regarding the relationship, if any, that exists between the diagnosis and the procedure. Patients Admitting Diagnosis: NSTEMI, Severe triple vessel coronary artery disease Post-Operative Diagnosis: Same Procedure performed: Cardiac catheterization with PTCA to distal circumflex and proximal left circumflex drug-eluting stent x 2, right common femoral artery approach on 01/13/2022. History/Risk Factors: Non-ischemic cardiomyopathy, Coronary artery disease, COPD Diabetes mellitus, Hypertension Clinical Indicators: 51-year-old female with complaints of chest pain diagnosed as NSTEMI. 01/15/22 having increased pain at right groin site, hematoma noted. Tenderness to palpation. Blood [id number] HR 79 18 @08:00. 2+ peripheral pulses Treatment: Telemetry monitoring Coreg 6.25 MG PO BID, Lasix 60MG PO BID, Hydralazine 50 mg TID ASA 81 MG PO DAILY 01/16 Ultrasound Right groin: no definite pseudo aneurysm evident. Small hematoma may be present within the inguinal region. There may be some [place] vessel occlusion. What relationship, if any, exists between the diagnosis of right groin hematoma and the procedure? [ ] Right groin hematoma is a complication of surgical procedure [ ] Right groin hematoma is an expected outcome of the surgical procedure [ ] Right groin hematoma is related to patients co-morbid condition(s) of [insert co-morbid dxs] & not a complication of the procedure [ ] Right groin hematoma is small and clinically not significant [ ] Other please specify ____ [ ] Unable to determine (Template Last Revised: July 2020) MTDD
--- NOTE | 2022-01-30 09:49 | CDI ---
Documentation Clarification Form Date: 01/16/2022 02:53:00 PM From: Nora Moeller RN, CCDS Admit Date: 01/13/2022 04:25:00 PM Patient Name: Chandni Her Visit Number: [id number] Discharge Date: 01/17/2022 09:00:00 PM ATTENTION: The Clinical Documentation Specialists (CDI) and [facility] Coding Staff appreciate your assistance in clarifying documentation. Please respond to the clarification below the line at the bottom and electronically sign. The CDI & [facility] Coding staff will review the response and follow-up if needed. Please note: Queries are made part of the Legal Health Record. If you have any questions, please contact the author of this message via ITS. Dr. Ananda Becerril Your patient has the documented past medical history of unspecified CHF in the H/P and subsequent progress notes with ongoing treatment. Additional information regarding the type and acuity] of CHF is requested. History/Risk Factors: Non-ischemic cardiomyopathy, Coronary artery disease, COPD Diabetes mellitus, Hypertension Clinical Indicators: 51-year-old female with complaints of chest pain diagnosed as NSTEMI. Her past medical history has congestive heart failure. Echocardiogram revealed EF 20 % hypokinesis of the mid to apical anterior, mid to apical inferior and mid inferior lateral tinajero, RV is mildly hypokinetic, trace aortic regurgitation and mild to moderate mitral regurgitation and trace to mild tricuspid regurgitation, RVSP of 26 mm per cardiology progress notes on 01/15/2022. 16 @ 12:00VS/Pulse OX: 176/79 63 15 97.9 97 % RA Treatment: Telemetry monitoring Coreg 6.25 MG PO BID, Lasix 60MG PO BID, Hydralazine 50 mg TID, Lipitor 80 MG PO HS ASA 81 MG PO DAILY, Plavix 75 MG PO Daily In your professional opinion, can you please clarify the acuity and type of CHF if known? [ ] Acute Systolic Heart Failure (reduced EF) [ ] Chronic Systolic Heart Failure (reduced EF) [ ] Acute on Chronic Systolic Heart Failure (reduced EF) [ ] Acute Diastolic Heart Failure (preserved EF) [ ] Chronic Diastolic Heart Failure (preserved EF) [ ] Acute on Chronic Diastolic Heart Failure (preserved EF) [ ] Acute Systolic & Diastolic Heart Failure [ ] Chronic Systolic & Diastolic Heart Failure [ ] Acute on Chronic Heart Failure Systolic & Diastolic Heart Failure [ ] Other, please specify [ ] Unable to determine (Template Last Revised: June 2020) MTDD
== END 2022-01-17 21:00 | disposition home health service (06) | DRG 246 ==
LOC: 3SCARD 16:25
PROVIDERS: ADMIT Internal Medicine; ATTEND Internal Medicine
PROC: 4A023N7 Measurement of Cardiac Sampling and Pressure, Left Heart, Percutaneous Approach (ICD-10-PCS; principal; 2022-01-14 13:45)
PROC: B2111ZZ Fluoroscopy of Multiple Coronary Arteries using Low Osmolar Contrast (ICD-10-PCS; principal; 2022-01-14 13:45)
PROC: 027135Z Dilation of Coronary Artery, Two Arteries with Two Drug-eluting Intraluminal Devices, Percutaneous Approach (ICD-10-PCS; principal; 2022-01-14 13:45)
PROC: 06H033Z Insertion of Infusion Device into Inferior Vena Cava, Percutaneous Approach (ICD-10-PCS; 2022-01-16 15:45)
PROC: 5A1D70Z Performance of Urinary Filtration, Intermittent, Less than 6 Hours Per Day (ICD-10-PCS; 2022-01-16 15:45)
DX: I21.4 Non-ST elevation (NSTEMI) myocardial infarction (principal); I50.21 Acute systolic (congestive) heart failure; N18.6 End stage renal disease; E87.1 Hypo-osmolality and hyponatremia; I13.2 Hypertensive heart and chronic kidney disease with heart failure and with stage 5 chronic kidney disease, or end stage renal disease; I42.8 Other cardiomyopathies; T82.41XA Breakdown (mechanical) of vascular dialysis catheter, initial encounter; E11.22 Type 2 diabetes mellitus with diabetic chronic kidney disease; E11.51 Type 2 diabetes mellitus with diabetic peripheral angiopathy without gangrene; E78.5 Hyperlipidemia, unspecified; E86.1 Hypovolemia; F17.210 Nicotine dependence, cigarettes, uncomplicated; F32.A Depression, unspecified; F41.9 Anxiety disorder, unspecified; I25.10 Atherosclerotic heart disease of native coronary artery without angina pectoris; I25.5 Ischemic cardiomyopathy; J44.9 Chronic obstructive pulmonary disease, unspecified; E83.9 Disorder of mineral metabolism, unspecified; Z99.2 Dependence on renal dialysis; Y71.2 Prosthetic and other implants, materials and accessory cardiovascular devices associated with adverse incidents; S30.1XXA Contusion of abdominal wall, initial encounter; Z79.4 Long term (current) use of insulin; Z79.82 Long term (current) use of aspirin; Z79.899 Other long term (current) drug therapy; Z80.3 Family history of malignant neoplasm of breast; Z82.3 Family history of stroke; Z82.49 Family history of ischemic heart disease and other diseases of the circulatory system; Z83.3 Family history of diabetes mellitus; Z86.73 Personal history of transient ischemic attack (TIA), and cerebral infarction without residual deficits; Z88.0 Allergy status to penicillin; Z91.030 Bee allergy status; Z86.79 Personal history of other diseases of the circulatory system
CPT/HCPCS: 36558; 71045; 76937; 77001; 80048; 83036; 84100; 85025; 85610; 85730; 86704; 86706; 87340; 90935; 93975; 94640; 94760

== ENCOUNTER → 2022-02-23 | Outpatient (CLI) | payer OTHER ==
--- NOTE | 2022-02-23 11:59 | US ---
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 TECHNIQUE: Transvaginal (TV) and Transabdominal (TA) . EXAM MEASUREMENTS: Uterus: 7.0 x 3.4 x 5.0 cm Endometrial Stripe: not well visualized. 1. Uterus: Anteverted Heterogenous. 2. Endometrium: obscured not well visualized. 3. Right Ovary: Obscured by overlying bowel gas 4. Left Ovary: Obscured by overlying bowel gas 5. Bilateral Adnexa: wnl 6. Posterior cul-de-sac: Fluid visualized 3.1 x 1.3 x 3.0 cm. IMPRESSION: 1. No evidence of mass. 2. Poor visualization of the endometrium. 3. Nonspecific fluid within the cul-de-sac.
--- NOTE | 2022-02-23 12:06 | US ---
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 ckd 4 EXAM MEASUREMENTS: Right Kidney: 10.6 x 6.4 x 4.3 cm Left Kidney: 8.7 x 4.0 x 3.1 cm cm Right Kidney: hypoechoic area seen upper pole 1.6 x 1.0 x 1.6 cm Left Kidney: hypoechoic area seen upper pole 1.0 x 1.0 x 1.3 cm. Renal calculus seen on prior CT n ot as well visualized on sonography. Bladder: anechoic Bilateral Jets seen: left only There is no evidence for hydronephrosis at this point in time. No nephrolithiasis is seen. The urina ry bladder is anechoic. IMPRESSION: 1. No evidence of obstructive uropathy. 2. Bilateral simple appearing renal cysts.
== END | disposition home or self-care (01) ==
LOC: RADUSWWP 10:15
PROVIDERS: ATTEND Obstetrics & Gynecology Gynecology
DX: D07.1 Carcinoma in situ of vulva (principal); N39.41 Urge incontinence
CPT/HCPCS: 76770; 76830; 76856

== ENCOUNTER 2022-03-28 13:40 | Emergency (ER) | payer OTHER ==
[2022-03-28] MEDS ORDERED: ALTEPLASE 2 MG VIAL (CATHFLO) IV STA (13:50)
--- NOTE | 2022-03-28 13:54 | ED ---
Recheck HPI - General Stated Complaint: Dialysis port clogged Time Seen by Provider: 03/28/22 13:46 Source: RN notes reviewed - History of Present Illness Initial Comments: This is a pleasant 51-year-old female who arrives via EMS from dialysis center. Patient's dialysis port is clotted. His only complaint other than some diarrhea which she has had for a few days. Patient coughing in the room. Patient states this is a chronic smoker's cough. No headache, no fever or chills, no changes in vision or hearing, no sore throat or difficulty with speech, no neck pain, no chest pain or shortness of breath, no abdominal pain, no nausea or vomiting, no changes in urination or bowel movements, no numbness or tingling, no extremity pain, no skin rashes or lesions. Past medical, surgical, social, and family history reviewed. - Related Data Home Medications Medication Instructions Recorded Confirmed Atorvastatin [Lipitor] 80 mg PO HS 06/30/17 03/28/22 Albuterol Nebulized [Ventolin 2.5 mg INHALATION RT-TID PRN 02/13/21 03/28/22 Nebulized] Folic Acid 0.4 mg PO DAILY 02/13/21 03/28/22 Albuterol Sulfate [Proair Hfa] 2 puff INHALATION RT-Q6H PRN 01/13/22 03/28/22 Ondansetron [Zofran ODT] 4 mg PO DAILY PRN 01/13/22 03/28/22 Miriam-Thalia 1 tab PO DAILY 01/13/22 03/28/22 Calcium Acetate [Phoslo] 667 mg PO TID-W/MEALS 03/28/22 03/28/22 Cholecalciferol [Vitamin D3 (25 50 mcg PO DAILY 03/28/22 03/28/22 Mcg = 1000 Iu)] Ezetimibe [Zetia] 10 mg PO DAILY 03/28/22 03/28/22 Furosemide [Lasix] 80 mg PO BID 03/28/22 03/28/22 Insulin Glargine,Hum.rec.anlog 15 units SQ HS 03/28/22 03/28/22 [Lantus Solostar Pen] Insulin Lispro [humaLOG Kwikpen] 5 unit SQ AC-TID 03/28/22 03/28/22 Insulin Lispro [humaLOG Kwikpen] See Protocol SQ AC-TID 03/28/22 03/28/22 Lactulose 20 gm PO BID PRN 03/28/22 03/28/22 Metoprolol Succinate [Metoprolol 25 mg PO DAILY 03/28/22 03/28/22 Succinate ER] carvediloL [Coreg] 6.25 mg PO BID 03/28/22 03/28/22 hydrOXYzine HCL 25 mg PO TID PRN 03/28/22 03/28/22 lisinopriL [Zestril] 2.5 mg PO DAILY 03/28/22 03/28/22 Previous Rx's Medication Instructions Recorded Aspirin 81 mg PO DAILY 30 Days #30 chew 04/21/20 Clopidogrel [Plavix] 75 mg PO DAILY #90 tab 01/15/22 Allergies Allergy/AdvReac Type Severity Reaction Status Date / Time bee venom protein (honey bee) Allergy Anaphylaxis Verified 03/28/22 17:25 Penicillins Allergy Rash/Hives Verified 03/28/22 17:25 Review of Systems ROS Statement: Those systems with pertinent positive or pertinent negative responses have been documented in the HPI. ROS Other: All systems not noted in ROS Statement are negative. 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 History of Any Multi-Drug Resistant Organisms: None Reported Past Surgical History: Appendectomy, Bowel Resection, Orthopedic Surgery, Tubal Ligation Additional Past Surgical History / Comment(s): Hx of colostomy and reversal, rotator cuff repair on Left, hx of fem/pop bypass. Colonoscopy 2012, cardiac catheterization Past Anesthesia/Blood Transfusion Reactions: No Reported Reaction Past Psychological History: Anxiety, Depression Smoking Status: Current every day smoker Past Alcohol Use History: None Reported Additional Past Alcohol Use History / Comment(s): smokes 1 PPD Past Drug Use History: Marijuana - Past Family History Mother Family Medical History: Congestive Heart Failure (CHF), Diabetes Mellitus Brother(s) Additional Family Medical History / Comment(s): CABG Sister(s) Family Medical History: CVA/TIA Additional Family Medical History / Comment(s): Maternal aunt had breast cancer. General Exam General appearance: alert, in no apparent distress Head exam: Present: atraumatic, normocephalic, normal inspection Eye exam: Present: normal appearance, PERRL, EOMI. Absent: scleral icterus, conjunctival injection, periorbital swelling ENT exam: Present: normal exam, normal oropharynx, mucous membranes dry, mucous membranes moist, normal external ear exam Neck exam: Present: normal inspection, full ROM. Absent: tenderness, me ningismus, lymphadenopathy Respiratory exam: Present: normal lung sounds bilaterally, chest wall tenderness, accessory muscle use, decreased breath sounds, prolonged expiratory. Absent: respiratory distress, wheezes, rales, rhonchi, stridor Cardiovascular Exam: Present: regular rate, normal rhythm, normal heart sounds. Absent: systolic murmur, diastolic murmur, rubs, gallop, clicks GI/Abdominal exam: Present: soft, normal bowel sounds. Absent: distended, tenderness, guarding, rebound, rigid Extremities exam: Present: normal inspection, full ROM, normal capillary refill. Absent: tenderness, pedal edema, joint swelling, calf tenderness Back exam: Present: normal inspection Neurological exam: Present: alert, oriented X3, CN II-XII intact Psychiatric exam: Present: normal affect, normal mood Skin exam: Present: warm, dry, intact, normal color. Absent: rash Course Vital Signs 03/28/22 03/28/22 15:11 18:11 Temperature 97.5 F L Pulse Rate 72 70 Respiratory 18 18 Rate Blood Pressure 137/80 125/84 O2 Sat by Pulse 100 99 Oximetry - Reevaluation(s) Reevaluation #1: 03/28/22 17:47 Patient reevaluated and is essentially unchanged. COVID-19 positive. Patient CMP would indicate the patient needs dialysis. Medical Decision Making - Medical Decision Making This case was discussed with the on-call billet inspector, Dr. Boyce who reviewed the patient's chart, laboratory data, vital signs, case was discussed in detail. He is okay with the patient being discharged and following up for dialysis on Wednesday. Patient's chest x-ray was clear. She was positive for COVID-19. The case was discussed in detail with ED attending physician. Presentation, findings, treatment plan discussed in detail. 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 Longo Patient was told to return to the ER for any signs or symptoms worsen. Told to return immediately if any other problems arise. All questions answered. Treatment plan discussed. Patient in agreement Every effort has been made to ensure accuracy of this dictation. However, due to the limitations of electronic medical records and dictation devices, errors in charting still occur. She was counseled on quarantine measures. Counseled on COVID-19. - Lab Data Result diagrams: 03/28/22 16:33 03/28/22 17:10 Lab Results 03/28/22 03/28/22 03/28/22 Range/Units 16:33 16:33 17:10 WBC 8.9 (3.8-10.6) k/uL RBC 3.94 (3.80-5.40) m/uL Hgb 14.3 (11.4-16.0) gm/dL Hct 44.0 (34.0-46.0) % MCV 111.5 H (80.0-100.0) fL MCH 36.2 H (25.0-35.0) pg MCHC 32.4 (31.0-37.0) g/dL RDW 18.4 H (11.5-15.5) % Plt Count 174 (150-450) k/uL MPV 11.8 Neutrophils % 75 % Lymphocytes % 14 % Monocytes % 6 % Eosinophils % 2 % Basophils % 1 % Neutrophils # 6.7 (1.3-7.7) k/uL Lymphocytes # 1.3 (1.0-4.8) k/uL Monocytes # 0.5 (0-1.0) k/uL Eosinophils # 0.2 (0-0.7) k/uL Basophils # 0.1 (0-0.2) k/uL Hypochromasia Moderate Anisocytosis Slight Macrocytosis Marked A PT 16.8 H (9.0-12.0) sec INR 1.6 H (<1.2) APTT 26.7 (22.0-30.0) sec Sodium (137-145) mmol/L Potassium (3.5-5.1) mmol/L Chloride (98-107) mmol/L Carbon Dioxide (22-30) mmol/L Anion Gap mmol/L BUN (7-17) mg/dL Creatinine (0.52-1.04) mg/dL Est GFR (CKD-EPI)AfAm (>60 ml/min/1.73 sqM) Est GFR (CKD-EPI)NonAf (>60 ml/min/1.73 sqM) Glucose (74-99) mg/dL Calcium (8.4-10.2) mg/dL Phosphorus (2.5-4.5) mg/dL Magnesium (1.6-2.3) mg/dL Total Bilirubin (0.2-1.3) mg/dL AST (14-36) U/L ALT (4-34) U/L Alkaline Phosphatase (38-126) U/L Total Protein (6.3-8.2) g/dL Albumin (3.5-5.0) g/dL Coronavirus (PCR) Detected A (Not Detectd) 03/28/22 Range/Units 17:10 WBC (3.8-10.6) k/uL RBC (3.80-5.40) m/uL Hgb (11.4-16.0) gm/dL Hct (34.0-46.0) % MCV (80.0-100.0) fL MCH (25.0-35.0) pg MCHC (31.0-37.0) g/dL RDW (11.5-15.5) % Plt Count (150-450) k/uL MPV Neutrophils % % Lymphocytes % % Monocytes % % Eosinophils % % Basophils % % Neutrophils # (1.3-7.7) k/uL Lymphocytes # (1.0-4.8) k/uL Monocytes # (0-1.0) k/uL Eosinophils # (0-0.7) k/uL Basophils # (0-0.2) k/uL Hypochromasia Anisocytosis Macrocytosis PT (9.0-12.0) sec INR (<1.2) APTT (22.0-30.0) sec Sodium 128 L (137-145) mmol/L Potassium 5.5 H (3.5-5.1) mmol/L Chloride 92 L (98-107) mmol/L Carbon Dioxide 20 L (22-30) mmol/L Anion Gap 16 mmol/L BUN 94 H (7-17) mg/dL Creatinine 5.19 H (0.52-1.04) mg/dL Est GFR (CKD-EPI)AfAm 10 (>60 ml/min/1.73 sqM) Est GFR (CKD-EPI)NonAf 9 (>60 ml/min/1.73 sqM) Glucose 398 H (74-99) mg/dL Calcium 8.9 (8.4-10.2) mg/dL Phosphorus 10.3 H* (2.5-4.5) mg/dL Magnesium 2.5 H (1.6-2.3) mg/dL Total Bilirubin 1.8 H (0.2-1.3) mg/dL AST 49 H (14-36) U/L ALT 38 H (4-34) U/L Alkaline Phosphatase 176 H (38-126) U/L Total Protein 5.8 L (6.3-8.2) g/dL Albumin 3.2 L (3.5-5.0) g/dL Coronavirus (PCR) (Not Detectd) - Radiology Data Radiology results: report reviewed, image reviewed Chest x-ray interpreted by me reveals no evidence of acute pathology. Concur with radiology Disposition Clinical Impression: Dialysis catheter clot or failure, COVID-19, End stage renal disease on dialysis, Hyperkalemia, Uncontrolled diabetes mellitus, End stage renal disease Narrative: Multiple electrolyte abnormalities Disposition: HOME SELF-CARE Condition: Stable Instructions (If sedation given, give patient instructions): Diabetic Hyperglycemia (ED) Additional Instructions: SELF QUARANTINE DISCHARGE: As you are at risk for symptoms due to coronavirus, please stay home and stay away from others as much as possible. Please maintain social distance of 6 feet if possible. You should not return to work until at least 3 days (72 hours) have passed since recovery of symptoms. This defined as resolution of fever without the use of fever reducing medicines and improvement in respiratory symptoms (e.g,, cough, shortness of breath) Isolation can end at least 5 days after symptom onset and after fever ends for 24 hours (without the use of fever-reducing medication) and symptoms are improving, if these people can continue to properly wear a well-fitted mask around others for 5 more days after the 5-day isolation period. If you're still having symptoms at the end of 5 day period, isolate for an additional 5 days. More information about what to do if you are sick can be found on the CDC website at https://www.cdc.gov/coronavirus/2019-ncov/hc-vut-qke-sick/steps-when- sick.html Expect the symptoms to last for 7-14 days from onset. Use acetaminophen (Tylenol) as needed for discomfort. You can take a maximum of 1 gram every 6 hours for discomfort, with your total dose in 24 hours not exceeding 4 grams. Be sure to maintain hydration. Drink continuous water and/or items high in vitamin C, such as orange juice and/or lemonade. For a cough you may take Mucinex or Robitussin. Also consider the use of Vicks Vapor Rub or your chest when you sleep. Use a humidifier that is cleaned frequently, in the bedroom at night. For Nausea /Vomiting/Diarrhea associated with your Illness: o Small frequent sips of room temperature liquids. o Diet: [place] Foods - If you are still experiencing discomfort and/or nausea please slowly advancing your diet using the BRAT Diet = bananas, rice, apples/apple sauce, toast. o With diarrhea avoid any dairy for 48 hours after symptoms resolved. o Continue with activity as tolerated. If your symptoms do get worse and you believe that the upper respiratory infection has developed into something else, such as pneumonia or severe dehydration, please return to the emergency department or follow-up with your primary care. But expect to be symptomatic for the days as indicated above Make sure you get the dialysis on Wednesday without fail. Also follow-up with your regular doctor. Follow-up with your regular physician as directed. Return to the ER immediately if any symptoms worsen, new symptoms arise, or any other problems develop. Is patient prescribed a controlled substance at d/c from ED?: No Referrals: Catalina Vivas MD [Primary Care Provider] - 03/30/22 Time of Disposition: 15:44 Decision to Admit Reason: Admit from EC Decision Time: 15:48
[2022-03-28 15:17] VITALS: RESP 18; TEMP 97.5
[2022-03-28 16:51] LABS: Anisocytosis Slight; Basophils # (A) 0.1 k/uL (0-0.2); Basophils % (A) 1 %; Eosinophils # (A) 0.2 k/uL (0-0.7); Eosinophils % (A) 2 %; HGB 14.3 gm/dL (11.4-16.0); Hypochromasia Moderate; Lymphocytes # (A) 1.3 k/uL (1.0-4.8); Lymphocytes % (A) 14 %; MCH 36.2 pg (25.0-35.0); MCHC 32.4 g/dL (31.0-37.0); MCV 111.5 fL (80.0-100.0); Macrocytosis Marked; Mean Platelet Volume 11.8; Monocytes # (A) 0.5 k/uL (0-1.0); Monocytes % (A) 6 %; Neutrophils # (A) 6.7 k/uL (1.3-7.7); Neutrophils % (A) 75 %; Platelet Count 174 k/uL (150-450); RBC 3.94 m/uL (3.80-5.40); RDW 18.4 % (11.5-15.5); WBC 8.9 k/uL (3.8-10.6)
--- NOTE | 2022-03-28 17:02 | XR ---
EXAMINATION TYPE: XR chest 1V portable DATE OF EXAM: 03/28/2022 COMPARISON: 01/16/2022 HISTORY: Dialysis. TECHNIQUE: Single view FINDINGS: There is right-sided dual-lumen central venous catheter with the tip in the superior vena c pennie. Heart appears enlarged. No heart failure. Lungs are clear of infiltrate. No pneumothorax. IMPRESSION: No active cardiopulmonary disease. Cardiomegaly. There is clearing of some infiltrate lef t lower lobe compared to old exam.
[2022-03-28 17:29] LABS: INR 1.6 (<1.2); Partial Thromboplastin Time 26.7 sec (22.0-30.0); Prothrombin Time 16.8 sec (9.0-12.0)
[2022-03-28 17:33] LABS: Albumin 3.2 g/dL (3.5-5.0); Calcium 8.9 mg/dL (8.4-10.2); Magnesium 2.5 mg/dL (1.6-2.3); Potassium 5.5 mmol/L (3.5-5.1); Total Bilirubin 1.8 mg/dL (0.2-1.3); Total Protein 5.8 g/dL (6.3-8.2)
[2022-03-28 17:45] LABS: Phosphorus 10.3 mg/dL (2.5-4.5)
[2022-03-28 18:12] VITALS: BP 125/84; PULSE 70
== END 2022-03-28 19:39 | disposition home or self-care (01) ==
LOC: EC 13:40 → EEVIPCON 13:40 → EC 19:39
DX: T82.49XA Other complication of vascular dialysis catheter, initial encounter (principal); U07.1 COVID-19; E11.22 Type 2 diabetes mellitus with diabetic chronic kidney disease; I13.2 Hypertensive heart and chronic kidney disease with heart failure and with stage 5 chronic kidney disease, or end stage renal disease; I50.9 Heart failure, unspecified; N18.6 End stage renal disease; E87.5 Hyperkalemia; F17.200 Nicotine dependence, unspecified, uncomplicated; J44.9 Chronic obstructive pulmonary disease, unspecified; Z86.73 Personal history of transient ischemic attack (TIA), and cerebral infarction without residual deficits; E78.5 Hyperlipidemia, unspecified; Z88.0 Allergy status to penicillin; Z91.030 Bee allergy status; Z99.2 Dependence on renal dialysis; Z79.82 Long term (current) use of aspirin; Z79.02 Long term (current) use of antithrombotics/antiplatelets; Z79.4 Long term (current) use of insulin; Z79.51 Long term (current) use of inhaled steroids
CPT/HCPCS: 36415; 80053; 83735; 84100; 85025; 85610; 85730; 87635; 71045; 99284; 96374; 37195; J1642; J2997

== ENCOUNTER 2022-04-10 15:10 | Inpatient (IN) | payer OTHER ==
[2022-04-10 16:41] LABS: Albumin 2.9 g/dL (3.5-5.0); Calcium 8.5 mg/dL (8.4-10.2); Potassium 3.6 mmol/L (3.5-5.1); Total Bilirubin 1.1 mg/dL (0.2-1.3); Total Protein 5.7 g/dL (6.3-8.2)
[2022-04-10 16:48] LABS: INR 1.4 (<1.2); Partial Thromboplastin Time 26.5 sec (22.0-30.0); Prothrombin Time 14.3 sec (9.0-12.0)
[2022-04-10 16:52] LABS: Anisocytosis Slight; Basophils # (A) 0.1 k/uL (0-0.2); Basophils % (A) 1 %; Eosinophils # (A) 0.3 k/uL (0-0.7); Eosinophils % (A) 3 %; HCT 41.6 % (34.0-46.0); HGB 13.4 gm/dL (11.4-16.0); Hypochromasia Slight; Lymphocytes # (A) 1.8 k/uL (1.0-4.8); Lymphocytes % (A) 17 %; MCHC 32.3 g/dL (31.0-37.0); MCV 108.6 fL (80.0-100.0); Macrocytosis Marked; Mean Platelet Volume 11.6; Monocytes % (A) 10 %; Neutrophils # (A) 7.2 k/uL (1.3-7.7); Neutrophils % (A) 67 %; Platelet Count 194 k/uL (150-450); RBC 3.82 m/uL (3.80-5.40); RDW 18.1 % (11.5-15.5); WBC 10.8 k/uL (3.8-10.6)
--- NOTE | 2022-04-10 17:23 | XR ---
EXAMINATION TYPE: XR chest 2V DATE OF EXAM: 04/10/2022 5:12 PM COMPARISON: Chest radiographs from 03/28/2022 TECHNIQUE: XR chest 2V Portable AP radiograph of the chest. CLINICAL INDICATION:Female, 51 years old with history of cough congestion; FINDINGS: Lungs/Pleura: There is no evidence of pleural effusion, focal consolidation, or pneumothorax. Pulmonary vascularity: Unremarkable. Heart/mediastinum: Cardiomediastinal silhouette is enlarged and stable. Musculoskeletal: No acute osseous pathology. Other findings: None Lines/Tubes: Right internal jugular central venous catheter with distal tip at the cavoatrial junction. IMPRESSION: 1. No acute cardiopulmonary disease/process. No significant change from prior. 2. Right central venous catheter tip in appropriate position.
[2022-04-10] MEDS ORDERED: VANCOMYCIN IV PER PHARMACY 1 EACH MISC MISCELLANE PRN (19:01)
[2022-04-10] MEDS ORDERED: MORPHINE SULFATE 4 MG/ML SYRINGE IVP STA (19:01)
[2022-04-10] MEDS ORDERED: VANCOMYCIN 1,500 MG in SODIUM CHLORIDE 0.9% 500 ML 500 ML IVPB STA (19:05)
--- NOTE | 2022-04-10 19:08 | ED ---
General Adult HPI - General Chief complaint: Skin/Abscess/Foreign Body Stated complaint: purple toe Time Seen by Provider: 04/10/22 18:42 Source: patient Mode of arrival: wheelchair Limitations: no limitations - History of Present Illness Initial comments: Patient is a 51-year-old female with past medical history remarkable for heart failure, COPD, any ESRD on hemodialysis, diabetes, hypertension, chronic vascular disease including a fem-pop bypass presents emergency Department complaining of a multi day history of the left big toe slight discoloration. There is a line of peripheral lung the superior medial aspect of the left toe. No neurovascular deficits. Chronic lower extremity edema with weeping as well as chronic wounds located over the body that the patient picks at. Patient presents over concern for her toe as well as her lower extremity weeping and chronic pain. Denies any chest pain, shortness breath. Denies abdominal pain, nausea, vomiting. Denies missing any runs of dialysis. Presents for further evaluation at this time. No history of blood clots. Does have a chronic history of poor vasculature. Dialysis accesses the right chest PermCath. - Related Data Home Medications Medication Instructions Recorded Confirmed Atorvastatin [Lipitor] 80 mg PO HS 06/30/17 04/10/22 Albuterol Nebulized [Ventolin 2.5 mg INHALATION RT-TID PRN 02/13/21 04/10/22 Nebulized] Folic Acid 0.4 mg PO DAILY 02/13/21 04/10/22 Albuterol Sulfate [Proair Hfa] 2 puff INHALATION RT-Q6H PRN 01/13/22 04/10/22 Ondansetron [Zofran ODT] 4 mg PO DAILY PRN 01/13/22 04/10/22 Miriam-Thalia 1 tab PO DAILY 01/13/22 04/10/22 Calcium Acetate [Phoslo] 667 mg PO TID-W/MEALS 03/28/22 04/10/22 Cholecalciferol [Vitamin D3 (25 50 mcg PO DAILY 03/28/22 04/10/22 Mcg = 1000 Iu)] Ezetimibe [Zetia] 10 mg PO DAILY 03/28/22 04/10/22 Furosemide [Lasix] 80 mg PO BID 03/28/22 04/10/22 Insulin Glargine,Hum.rec.anlog 15 units SQ HS 03/28/22 04/10/22 [Lantus Solostar Pen] Insulin Lispro [humaLOG Kwikpen] 5 unit SQ AC-TID 03/28/22 04/10/22 Insulin Lispro [humaLOG Kwikpen] See Protocol SQ AC-TID 03/28/22 04/10/22 Lactulose 20 gm PO BID PRN 03/28/22 04/10/22 Metoprolol Succinate [Metoprolol 25 mg PO DAILY 03/28/22 04/10/22 Succinate ER] hydrOXYzine HCL 25 mg PO TID PRN 03/28/22 04/10/22 lisinopriL [Zestril] 2.5 mg PO DAILY 03/28/22 04/10/22 Previous Rx's Medication Instructions Recorded Aspirin 81 mg PO DAILY 30 Days #30 chew 04/21/20 Clopidogrel [Plavix] 75 mg PO DAILY #90 tab 01/15/22 Allergies Allergy/AdvReac Type Severity Reaction Status Date / Time bee venom protein (honey bee) Allergy Anaphylaxis Verified 04/10/22 19:12 Penicillins Allergy Rash/Hives Verified 04/10/22 19:12 Review of Systems ROS Statement: Those systems with pertinent positive or pertinent negative responses have been documented in the HPI. Review of Systems: CONST: Denies fever EYES: Denies blurry vision ENT: Denies nasal congestion C/V: Denies Chest pain RESP: Denies shortness of breath GI: Denies abdominal pain : Denies dysuria SKIN: Endorses slight purple discoloration to the left toe, not the entire toe. Endorses chronic wounds. MSK: This is chronic bilateral lower extremity pain. NEURO: Denies headache ROS Other: All systems not noted in ROS Statement are negative. 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 History of Any Multi-Drug Resistant Organisms: None Reported Past Surgical History: Appendectomy, Bowel Resection, Orthopedic Surgery, Tubal Ligation Additional Past Surgical History / Comment(s): Hx of colostomy and reversal, rotator cuff repair on Left, hx of fem/pop bypass. Colonoscopy 2012, cardiac catheterization Past Anesthesia/Blood Transfusion Reactions: No Reported Reaction Past Psychological History: Anxiety, Depression Smoking Status: Current every day smoker Past Alcohol Use History: None Reported Past Drug Use History: Marijuana - Past Family History Mother Family Medical History: Congestive Heart Failure (CHF), Diabetes Mellitus Brother(s) Additional Family Medical History / Comment(s): CABG Sister(s) Family Medical History: CVA/TIA Additional Family Medical History / Comment(s): Maternal aunt had breast cancer. General Exam - General Exam Comments Initial Comments: General: Appears in no acute distress. HEAD: Normal with no signs of head trauma. EYES: PERRLA, EOMI, conjunctiva normal, no discharge. ENT: Hearing grossly intact, normal oropharynx. RESPIRATORY: Clear breath sounds bilaterally. No wheezes, rales, or rhonchi. C/V: Regular rate and rhythm. S1 and S2 auscultated, symmetrical bilateral lower extremity edema., peripheral pulses intact throughout. ABD: Abd is soft, nontender, nondistended EXT: Normal range of motion, no obvious deformity SKIN: Multiple scabbed over pinpoint wounds over the back, extremities. Patient is weeping venostasis ulcers in the bilateral anterior shins with surrounding erythema. Patient does have very slight purple discoloration of the left big toe, however it appears to only be over the anterior medial aspect of the toe not the entire toe. Appears to be neurovascularly intact. NEURO: Alert and oriented 4. No focal deficits. Limitations: no limitations Course Vital Signs 04/10/22 04/10/22 15:56 19:42 Temperature 98.7 F Pulse Rate 69 82 Respiratory 16 15 Rate Blood Pressure 86/64 168/93 O2 Sat by Pulse 99 98 Oximetry Medical Decision Making - Medical Decision Making Based on the patient's presentation and physical exam, patient appears to be having chronic lower extremity edema with weeping venostasis ulcers and wounds. There is surrounding erythema and concern for possible infection. There is a purple strip located along the left toe as well with mild discoloration but does not the entire toe. No obvious wound. Patient has chronic wounds all over her body from itching. She is a vasculopath. I discussed with her I'm concerned for possible infection of her venous stasis ulcers and would like to have her admitted. She appears to be volume overloaded as well as her legs. She denies any worsening dyspnea. She was in agreement with this. Workup was started in triage and was remarkable for a mild leukocytosis of 10.8. She has an elevated BUN/creatinine the setting of ESRD on hemodialysis. She has not missed any runs of dialysis. Last dialyzed yesterday. Patient's BNP is elevated at 195,000. Patient is testing positive for Covid but she has been testing positive for a month. Troponin is mildly elevated to 0.044 in the setting of ESRD on hemodialysis. EKG showed no evidence of acute ischemia. Patient's chest x-ray as interpreted by myself reveals no evidence of acute cardio pulmonary process. The right permacath appears in adequate position. I did recommend that we obtain ultrasounds the bilateral lower extremities as well as a foot x-ray. She was in agreement with this plan. She'll be started on IV vancomycin. She'll be admitted to the hospital. Patient's vascular surgeon Dr. 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 She was in agreement with this plan. Patient will be admitted for suspected cellulitis and volume overload. I spoke with the admitting team Dr. Lindsey who accepted the patient. Patient was admitted in stable condition. - Lab Data Result diagrams: 04/10/22 16:09 04/10/22 16:09 Lab Results 04/10/22 04/10/22 04/10/22 Range/Units 16:09 16:09 16:09 WBC 10.8 H (3.8-10.6) k/uL RBC 3.82 (3.80-5.40) m/uL Hgb 13.4 (11.4-16.0) gm/dL Hct 41.6 (34.0-46.0) % MCV 108.6 H (80.0-100.0) fL MCH 35.0 (25.0-35.0) pg MCHC 32.3 (31.0-37.0) g/dL RDW 18.1 H (11.5-15.5) % Plt Count 194 (150-450) k/uL MPV 11.6 Neutrophils % 67 % Lymphocytes % 17 % Monocytes % 10 % Eosinophils % 3 % Basophils % 1 % Neutrophils # 7.2 (1.3-7.7) k/uL Lymphocytes # 1.8 (1.0-4.8) k/uL Monocytes # 1.0 (0-1.0) k/uL Eosinophils # 0.3 (0-0.7) k/uL Basophils # 0.1 (0-0.2) k/uL Hypochromasia Slight Anisocytosis Slight Macrocytosis Marked A PT 14.3 H (9.0-12.0) sec INR 1.4 H (<1.2) APTT 26.5 (22.0-30.0) sec Sodium 136 L (137-145) mmol/L Potassium 3.6 (3.5-5.1) mmol/L Chloride 103 (98-107) mmol/L Carbon Dioxide 20 L (22-30) mmol/L Anion Gap 13 mmol/L BUN 73 H (7-17) mg/dL Creatinine 3.38 H (0.52-1.04) mg/dL Est GFR (CKD-EPI)AfAm 17 (>60 ml/min/1.73 sqM) Est GFR (CKD-EPI)NonAf 15 (>60 ml/min/1.73 sqM) Glucose 127 H (74-99) mg/dL Calcium 8.5 (8.4-10.2) mg/dL Total Bilirubin 1.1 (0.2-1.3) mg/dL AST 36 (14-36) U/L ALT 34 (4-34) U/L Alkaline Phosphatase 194 H (38-126) U/L Troponin I (0.000-0.034) ng/mL NT-Pro-B Natriuret Pep pg/mL Total Protein 5.7 L (6.3-8.2) g/dL Albumin 2.9 L (3.5-5.0) g/dL Influenza Type A (PCR) (Not Detectd) Influenza Type B (PCR) (Not Detectd) RSV (PCR) (Not Detectd) SARS-CoV-2 (PCR) (Not Detectd) 04/10/22 04/10/22 04/10/22 Range/Units 16:09 16:09 16:09 WBC (3.8-10.6) k/uL RBC (3.80-5.40) m/uL Hgb (11.4-16.0) gm/dL Hct (34.0-46.0) % MCV (80.0-100.0) fL MCH (25.0-35.0) pg MCHC (31.0-37.0) g/dL RDW (11.5-15.5) % Plt Count (150-450) k/uL MPV Neutrophils % % Lymphocytes % % Monocytes % % Eosinophils % % Basophils % % Neutrophils # (1.3-7.7) k/uL Lymphocytes # (1.0-4.8) k/uL Monocytes # (0-1.0) k/uL Eosinophils # (0-0.7) k/uL Basophils # (0-0.2) k/uL Hypochromasia Anisocytosis Macrocytosis PT (9.0-12.0) sec INR (<1.2) APTT (22.0-30.0) sec Sodium (137-145) mmol/L Potassium (3.5-5.1) mmol/L Chloride (98-107) mmol/L Carbon Dioxide (22-30) mmol/L Anion Gap mmol/L BUN (7-17) mg/dL Creatinine (0.52-1.04) mg/dL Est GFR (CKD-EPI)AfAm (>60 ml/min/1.73 sqM) Est GFR (CKD-EPI)NonAf (>60 ml/min/1.73 sqM) Glucose (74-99) mg/dL Calcium (8.4-10.2) mg/dL Total Bilirubin (0.2-1.3) mg/dL AST (14-36) U/L ALT (4-34) U/L Alkaline Phosphatase (38-126) U/L Troponin I 0.044 H* (0.000-0.034) ng/mL NT-Pro-B Natriuret Pep [id number] pg/mL Total Protein (6.3-8.2) g/dL Albumin (3.5-5.0) g/dL Influenza Type A (PCR) Not Detected (Not Detectd) Influenza Type B (PCR) Not Detected (Not Detectd) RSV (PCR) Not Detected (Not Detectd) SARS-CoV-2 (PCR) Detected A (Not Detectd) - EKG Data -: EKG Interpreted by Me EKG Comments: 12-lead Electrocardiogram Interpretation Note EKG was reviewed and interpreted by myself. 12-lead ECG performed at 1618 is interpreted by me as revealing normal sinus rhythm at a rate of 68 beats per minute. [place] is normal. PA interval is 193 ms, QRS duration is 104 ms, QTc is 462 ms.. There were no ST or T wave abnormalities to suggest myocardial ischemia or injury. R wave progression across the precordium was satisfactory. By my interpretation this EKG is non-diagnostic for acute ischemia. When compared with EKG from January 2022, no significant change. Disposition Clinical Impression: Cellulitis, Venous stasis ulcer, Volume overload, ESRD on hemodialysis Disposition: ADMITTED IP TO THIS HOSP Condition: Stable Referrals: Catalina Vivas MD [Primary Care Provider] - 1-2 days Time of Disposition: 20:15
--- NOTE | 2022-04-10 20:10 | XR ---
EXAMINATION TYPE: XR foot complete LT DATE OF EXAM: 04/10/2022 7:28 PM INDICATION: Patient age:Female; 51 years old; Reason for study: wounds, eval for osteomyelitis; . COMPARISON: 06/22/2017 TECHNIQUE: The left foot was examined in the AP, oblique, and lateral projections. FINDINGS: No evidence of osseous erosion, no evidence fracture. Calcaneal Achilles enthesophyte is pr esent. Calcifications dictation of the arterial vasculature. No evidence of any acute osseous pathology. No evidence of soft tissue swelling. Joints are preserve d. IMPRESSION: 1. No definitive evidence for osseous erosion to suggest osteomyelitis. 2. No evidence of acute fracture.
--- NOTE | 2022-04-10 20:23 | US ---
EXAMINATION TYPE: US venous doppler duplex LE DATE OF EXAM: 04/10/2022 8:10 PM COMPARISON: NONE CLINICAL HISTORY: BLLE swelling, eval for venous occlusions. edema bilateral legs. patient on Plavix due to cardiac issues SIDE PERFORMED: Bilateral TECHNIQUE: The lower extremity deep venous system is examined utilizing real time linear array sonog hillary with graded compression, doppler sonography and color-flow sonography. VESSELS IMAGED: Common Femoral Vein Deep Femoral Vein Greater Saphenous Vein * Femoral Vein Popliteal Vein Small Saphenous Vein * Proximal Calf Veins (* superficial vessels) technical limitations due to large amount of soft tissue edema Right Leg: no evidence of DVT Left Leg: no evidence of DVT Grayscale, color doppler, spectral doppler imaging performed of the deep veins of the lower extremiti es. There is normal flow, compressibility, vascular waveforms. Streaky anechoic fluid seen throughout the soft tissues. IMPRESSION: 1. No evidence for deep vein thrombosis of either lower extremity. 2. Bilateral subcutaneous streaky edema.
[2022-04-10] MEDS ORDERED: ONDANSETRON ODT 4 MG TAB PO PRN (20:46)
[2022-04-10] MEDS ORDERED: ALBUTEROL NEBULIZED 2.5 MG/3 ML INHALATION PRN (20:46)
[2022-04-10] MEDS ORDERED: LACTULOSE 20 GM/30 ML CUP PO PRN (20:46)
[2022-04-10] MEDS ORDERED: ALBUTEROL HFA INHALER INHALATION PRN (20:46)
[2022-04-10] MEDS ORDERED: NALOXONE 0.4 MG/ML 1 ML VIAL IV PRN (20:47)
[2022-04-10] MEDS: ATORVASTATIN 80 MG TAB PO SCH (23:35)
[2022-04-10] MEDS: FUROSEMIDE 80 MG TAB PO SCH (23:35)
[2022-04-11] MEDS: INSULIN DETEMIR (LEVEMIR) 100 UNIT/ML SYR SQ SCH ×2 (02:21→21:40)
[2022-04-11] MEDS: MORPHINE SULFATE 4 MG/ML SYRINGE IV PRN ×5 (07:03→22:36)
[2022-04-11 07:51] LABS: Anisocytosis Slight; Basophils # (A) 0.1 k/uL (0-0.2); Basophils % (A) 1 %; Eosinophils # (A) 0.5 k/uL (0-0.7); Eosinophils % (A) 5 %; HCT 44.9 % (34.0-46.0); HGB 13.9 gm/dL (11.4-16.0); Hypochromasia Marked; Lymphocytes # (A) 1.8 k/uL (1.0-4.8); Lymphocytes % (A) 17 %; MCH 34.7 pg (25.0-35.0); Macrocytosis Marked; Mean Platelet Volume 10.8; Monocytes % (A) 9 %; Neutrophils # (A) 6.7 k/uL (1.3-7.7); Neutrophils % (A) 65 %; Platelet Count 205 k/uL (150-450); RBC 4.01 m/uL (3.80-5.40); RDW 17.5 % (11.5-15.5); WBC 10.3 k/uL (3.8-10.6)
[2022-04-11] MEDS: ALBUTEROL HFA INHALER INHALATION PRN ×3 (08:06→22:30)
[2022-04-11] MEDS: TIOTROPIUM 2.5 MCG INHALER INHALATION SCH (08:06)
[2022-04-11] MEDS: CALCIUM ACETATE 667 MG TAB PO SCH ×3 (09:02→17:12)
[2022-04-11] MEDS: CLOPIDOGREL 75 MG TAB PO SCH (09:02)
[2022-04-11] MEDS: METOPROLOL SUCCINATE (ER) 25 MG TAB.ER.24H PO SCH (09:02)
[2022-04-11] MEDS: FUROSEMIDE 80 MG TAB PO SCH ×2 (09:02→21:38)
[2022-04-11] MEDS: ASPIRIN 81 MG PO SCH (09:02)
[2022-04-11] MEDS: INSULIN ASPART (NovoLOG) 100 UNIT/ML VIAL SQ SCH ×3 (09:04→17:12)
[2022-04-11 09:06] LABS: Glucose,Whole Blood 140 mg/dL (70-110)
--- NOTE | 2022-04-11 10:58 | P.NPCON ---
History of Present Illness - Reason for Consult end stage renal disease - History of Present Illness Reason for consultation: End-stage renal disease History of present illness: Patient is a 51-year-old female seen in renal consultation for end-stage renal disease. Patient was seen and examined in the emergency room. Patient is maintained on hemodialysis on a Wednesday schedule at her last hemodialysis treatment was on . Patient presented to the hospital due to pain in her left toe. Patient has history of peripheral vascular disease and is worried that she may need amputation. She denies any drainage but admits to pain. Patient is not sure if she suffered any injury or not. Denies chest pain or shortness of breath. Feels nauseous. Did vomit once this morning. She is quite tearful. Foot x-ray showed no evidence of fracture ostium myelitis. No DVT noted. Vital signs are stable. General: Awake. No acute distress. HEENT: Head exam is unremarkable. LUNGS: Breath sounds decreased. HEART: Rate and Rhythm are regular. ABDOMEN: Soft, no distention. EXTREMITITES: 1+ edema. Chronic changes noted. Wounds on toes noted without any drainage. 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 History of Any Multi-Drug Resistant Organisms: None Reported Past Surgical History: Appendectomy, Bowel Resection, Orthopedic Surgery, Tubal Ligation Additional Past Surgical History / Comment(s): Hx of colostomy and reversal, rotator cuff repair on Left, hx of fem/pop bypass. Colonoscopy 2012, cardiac catheterization Past Anesthesia/Blood Transfusion Reactions: No Reported Reaction Past Psychological History: Anxiety, Depression Smoking Status: Current every day smoker Past Alcohol Use History: None Reported Past Drug Use History: Marijuana - Past Family History Mother Family Medical History: Congestive Heart Failure (CHF), Diabetes Mellitus Brother(s) Additional Family Medical History / Comment(s): CABG Sister(s) Family Medical History: CVA/TIA Additional Family Medical History / Comment(s): Maternal aunt had breast cancer. Medications and Allergies Home Medications Medication Instructions Recorded Confirmed Type Atorvastatin [Lipitor] 80 mg PO HS 06/30/17 04/10/22 History Aspirin 81 mg PO DAILY 30 Days #30 chew 04/21/20 04/10/22 Rx Albuterol Nebulized [Ventolin 2.5 mg INHALATION RT-TID PRN 02/13/21 04/10/22 History Nebulized] Folic Acid 0.4 mg PO DAILY 02/13/21 04/10/22 History Albuterol Sulfate [Proair Hfa] 2 puff INHALATION RT-Q6H PRN 01/13/22 04/10/22 History Ondansetron [Zofran ODT] 4 mg PO DAILY PRN 01/13/22 04/10/22 History Miriam-Thalia 1 tab PO DAILY 01/13/22 04/10/22 History Clopidogrel [Plavix] 75 mg PO DAILY #90 tab 01/15/22 04/10/22 Rx Calcium Acetate [Phoslo] 667 mg PO TID-W/MEALS 03/28/22 04/10/22 History Cholecalciferol [Vitamin D3 (25 50 mcg PO DAILY 03/28/22 04/10/22 History Mcg = 1000 Iu)] Ezetimibe [Zetia] 10 mg PO DAILY 03/28/22 04/10/22 History Furosemide [Lasix] 80 mg PO BID 03/28/22 04/10/22 History Insulin Glargine,Hum.rec.anlog 15 units SQ HS 03/28/22 04/10/22 History [Lantus Solostar Pen] Insulin Lispro [humaLOG Kwikpen] 5 unit SQ AC-TID 03/28/22 04/10/22 History Insulin Lispro [humaLOG Kwikpen] See Protocol SQ AC-TID 03/28/22 04/10/22 History Lactulose 20 gm PO BID PRN 03/28/22 04/10/22 History Metoprolol Succinate [Metoprolol 25 mg PO DAILY 03/28/22 04/10/22 History Succinate ER] hydrOXYzine HCL 25 mg PO TID PRN 03/28/22 04/10/22 History lisinopriL [Zestril] 2.5 mg PO DAILY 03/28/22 04/10/22 History Allergies Allergy/AdvReac Type Severity Reaction Status Date / Time bee venom protein (honey bee) Allergy Anaphylaxis Verified 04/10/22 19:12 Penicillins Allergy Rash/Hives Verified 04/10/22 19:12 Physical Exam Vitals: Vital Signs Temp Pulse Resp BP Pulse Ox 04/11/22 06:50 74 17 151/67 99 04/10/22 23:36 88 15 144/74 99 04/10/22 19:42 82 15 168/93 98 04/10/22 15:56 98.7 F 69 16 86/64 99 Intake and Output 04/10/22 04/11/22 04/11/22 22:59 06:59 14:59 Other: Weight 74.843 kg Results - Lab Results Most recent lab results Calcium 8.5 mg/dL (8.4-10.2) 04/10/22 16:09 04/11/22 07:27 04/10/22 16:09 Assessment and Plan Plan: Assessment: 1. End-stage renal disease maintained on hemodialysis on Wednesday schedule via permacath. 2. Lower extremity cellulitis versus ulcer. ID and vascular surgery consulted. 3. Diabetes mellitus. 4. Hypertension with chronic kidney disease. 5. Peripheral arterial disease. 6. Chronic kidney disease mineral bone disease. 7. Lower extremity edema. Plan: Hemodialysis today. Check phosphorus level. Monitor vancomycin levels. Dose to be adjusted for renal function. Home antihypertensives resumed. Thank you for the consultation. I will continue to follow the patient with you during her hospital stay.
[2022-04-11] MEDS: hydrOXYzine HCL 25 MG TAB PO PRN ×2 (11:51→18:03)
[2022-04-11] MEDS ORDERED: VANCOMYCIN 1,250 MG in SODIUM CHLORIDE 0.9% 250 ML IVPB ONE (12:00)
[2022-04-11 12:30] LABS: Calcium 8.5 mg/dL (8.4-10.2); Phosphorus 8.4 mg/dL (2.5-4.5)
[2022-04-11 12:34] LABS: Potassium 4.5 mmol/L (3.5-5.1)
--- NOTE | 2022-04-11 14:33 | P.GSCN ---
History of Present Illness History of present illness: 51-year-old white female with known to me from the past. Patient has history of chronic kidney failure patient on dialysis through the right jugular approach patient has been complaining of bilateral lower extremity some redness and mild cellulitis and superficial necrotic no drainage noted patient has marked itching and superficial ulceration on her back. Medical history patient recently had a coronary coronary artery stent placed patient also has a history of COPD, diabetes, hypertension, chronic kidney disease, Patient was seen in the emergency room patient is thinning of pain all over the body according the patient she is cold with positive Past history patient had a redo bilateral bypass graft done by me in 2013 patient also has a carotid artery occlusive disease patient had a left common angiogram done in the past her ulnar artery is occluded on the occupational and radial artery is patent and also patient had some x-ray artery stenosis. Patient neck is supple patient has a right IJ catheter chest patient has a bilateral crackles Abdomen soft nontender Vascular femorals are 1+ bilateral PTT 3 by the Doppler patient has some discoloration and mild cellulitis of the both lower extremity there is scab formation noted on the foot second and third toe no drainage noted Patient is an IV antibiotic Silvadene cream for lower extremity with with Kerlix and follow with you at this point patient is high risk for any major surgical intervention Past Medical History Past Medical History: Cancer, Heart Failure, COPD, CVA/TIA, Diabetes Mellitus, Hyperlipidemia, Hypertension, Renal Disease, Vascular Disorder Additional Past Medical History / Comment(s): CHF, valvular heart disease with MR, peripheral vascular disease, CML. 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 History of Any Multi-Drug Resistant Organisms: None Reported Past Surgical History: Appendectomy, Bowel Resection, Orthopedic Surgery, Tubal Ligation Additional Past Surgical History / Comment(s): Hx of colostomy and reversal, rotator cuff repair on Left, hx of fem/pop bypass. Colonoscopy 2012, cardiac catheterization Past Anesthesia/Blood Transfusion Reactions: No Reported Reaction Past Psychological History: Anxiety, Depression Smoking Status: Current every day smoker Past Alcohol Use History: None Reported Past Drug Use History: Marijuana - Past Family History Mother Family Medical History: Congestive Heart Failure (CHF), Diabetes Mellitus Brother(s) Additional Family Medical History / Comment(s): CABG Sister(s) Family Medical History: CVA/TIA Additional Family Medical History / Comment(s): Maternal aunt had breast cancer. Medications and Allergies Home Medications Medication Instructions Recorded Confirmed Type Atorvastatin [Lipitor] 80 mg PO HS 06/30/17 04/10/22 History Aspirin 81 mg PO DAILY 30 Days #30 chew 04/21/20 04/10/22 Rx Albuterol Nebulized [Ventolin 2.5 mg INHALATION RT-TID PRN 02/13/21 04/10/22 History Nebulized] Folic Acid 0.4 mg PO DAILY 02/13/21 04/10/22 History Albuterol Sulfate [Proair Hfa] 2 puff INHALATION RT-Q6H PRN 01/13/22 04/10/22 History Ondansetron [Zofran ODT] 4 mg PO DAILY PRN 01/13/22 04/10/22 History Miriam-Thalia 1 tab PO DAILY 01/13/22 04/10/22 History Clopidogrel [Plavix] 75 mg PO DAILY #90 tab 01/15/22 04/10/22 Rx Calcium Acetate [Phoslo] 667 mg PO TID-W/MEALS 03/28/22 04/10/22 History Cholecalciferol [Vitamin D3 (25 50 mcg PO DAILY 03/28/22 04/10/22 History Mcg = 1000 Iu)] Ezetimibe [Zetia] 10 mg PO DAILY 03/28/22 04/10/22 History Furosemide [Lasix] 80 mg PO BID 03/28/22 04/10/22 History Insulin Glargine,Hum.rec.anlog 15 units SQ HS 03/28/22 04/10/22 History [Lantus Solostar Pen] Insulin Lispro [humaLOG Kwikpen] 5 unit SQ AC-TID 03/28/22 04/10/22 History Insulin Lispro [humaLOG Kwikpen] See Protocol SQ AC-TID 03/28/22 04/10/22 History Lactulose 20 gm PO BID PRN 03/28/22 04/10/22 History Metoprolol Succinate [Metoprolol 25 mg PO DAILY 03/28/22 04/10/22 History Succinate ER] hydrOXYzine HCL 25 mg PO TID PRN 03/28/22 04/10/22 History lisinopriL [Zestril] 2.5 mg PO DAILY 03/28/22 04/10/22 History Allergies Allergy/AdvReac Type Severity Reaction Status Date / Time bee venom protein (honey bee) Allergy Anaphylaxis Verified 04/10/22 19:12 Penicillins Allergy Rash/Hives Verified 04/10/22 19:12 Surgical - Exam Vital Signs Temp Pulse Resp BP Pulse Ox 98.7 F 69 16 86/64 99 04/10/22 15:56 04/10/22 15:56 04/10/22 15:56 04/10/22 15:56 04/10/22 15:56 Results - Labs 04/11/22 07:27 04/11/22 07:27 Abnormal Lab Results - Last 24 Hours (Table) 04/10/22 04/10/22 04/10/22 Range/Units 16:09 16:09 16:09 WBC 10.8 H (3.8-10.6) k/uL MCV 108.6 H (80.0-100.0) fL RDW 18.1 H (11.5-15.5) % Macrocytosis Marked A PT 14.3 H (9.0-12.0) sec INR 1.4 H (<1.2) Sodium 136 L (137-145) mmol/L Carbon Dioxide 20 L (22-30) mmol/L BUN 73 H (7-17) mg/dL Creatinine 3.38 H (0.52-1.04) mg/dL Glucose 127 H (74-99) mg/dL POC Glucose (mg/dL) (70-110) mg/dL Phosphorus (2.5-4.5) mg/dL Alkaline Phosphatase 194 H (38-126) U/L Troponin I (0.000-0.034) ng/mL Total Protein 5.7 L (6.3-8.2) g/dL Albumin 2.9 L (3.5-5.0) g/dL SARS-CoV-2 (PCR) (Not Detectd) 04/10/22 04/10/22 04/10/22 Range/Units 16:09 16:09 21:08 WBC (3.8-10.6) k/uL MCV (80.0-100.0) fL RDW (11.5-15.5) % Macrocytosis PT (9.0-12.0) sec INR (<1.2) Sodium (137-145) mmol/L Carbon Dioxide (22-30) mmol/L BUN (7-17) mg/dL Creatinine (0.52-1.04) mg/dL Glucose (74-99) mg/dL POC Glucose (mg/dL) (70-110) mg/dL Phosphorus (2.5-4.5) mg/dL Alkaline Phosphatase (38-126) U/L Troponin I 0.044 H* 0.052 H* (0.000-0.034) ng/mL Total Protein (6.3-8.2) g/dL Albumin (3.5-5.0) g/dL SARS-CoV-2 (PCR) Detected A (Not Detectd) 04/11/22 04/11/22 04/11/22 Range/Units 00:15 07:27 07:27 WBC (3.8-10.6) k/uL MCV 112.0 H (80.0-100.0) fL RDW 17.5 H (11.5-15.5) % Macrocytosis Marked A PT (9.0-12.0) sec INR (<1.2) Sodium (137-145) mmol/L Carbon Dioxide 20 L (22-30) mmol/L BUN 84 H (7-17) mg/dL Creatinine 3.84 H (0.52-1.04) mg/dL Glucose 118 H (74-99) mg/dL POC Glucose (mg/dL) (70-110) mg/dL Phosphorus 8.4 H (2.5-4.5) mg/dL Alkaline Phosphatase (38-126) U/L Troponin I 0.046 H* (0.000-0.034) ng/mL Total Protein (6.3-8.2) g/dL Albumin (3.5-5.0) g/dL SARS-CoV-2 (PCR) (Not Detectd) 04/11/22 Range/Units 09:02 WBC (3.8-10.6) k/uL MCV (80.0-100.0) fL RDW (11.5-15.5) % Macrocytosis PT (9.0-12.0) sec INR (<1.2) Sodium (137-145) mmol/L Carbon Dioxide (22-30) mmol/L BUN (7-17) mg/dL Creatinine (0.52-1.04) mg/dL Glucose (74-99) mg/dL POC Glucose (mg/dL) 140 H (70-110) mg/dL Phosphorus (2.5-4.5) mg/dL Alkaline Phosphatase (38-126) U/L Troponin I (0.000-0.034) ng/mL Total Protein (6.3-8.2) g/dL Albumin (3.5-5.0) g/dL SARS-CoV-2 (PCR) (Not Detectd) Diabetes panel 04/10/22 04/11/22 Range/Units 16: 07:27 Sodium 136 L 138 (137-145) mmol/L Potassium 3.6 4.5 (3.5-5.1) mmol/L Chloride 103 106 (98-107) mmol/L Carbon Dioxide 20 L 20 L (22-30) mmol/L BUN 73 H 84 H (7-17) mg/dL Creatinine 3.38 H 3.84 H (0.52-1.04) mg/dL Glucose 127 H 118 H (74-99) mg/dL Calcium 8.5 8.5 (8.4-10.2) mg/dL AST 36 (14-36) U/L ALT 34 (4-34) U/L Alkaline Phosphatase 194 H (38-126) U/L Total Protein 5.7 L (6.3-8.2) g/dL Albumin 2.9 L (3.5-5.0) g/dL Calcium panel 04/10/22 04/11/22 Range/Units 16: 07:27 Calcium 8.5 8.5 (8.4-10.2) mg/dL Phosphorus 8.4 H (2.5-4.5) mg/dL Albumin 2.9 L (3.5-5.0) g/dL Pituitary panel 04/10/22 04/11/22 Range/Units 16:09 07:27 Sodium 136 L 138 (137-145) mmol/L Potassium 3.6 4.5 (3.5-5.1) mmol/L Chloride 103 106 (98-107) mmol/L Carbon Dioxide 20 L 20 L (22-30) mmol/L BUN 73 H 84 H (7-17) mg/dL Creatinine 3.38 H 3.84 H (0.52-1.04) mg/dL Glucose 127 H 118 H (74-99) mg/dL Calcium 8.5 8.5 (8.4-10.2) mg/dL Adrenal panel 04/10/22 04/11/22 Range/Units 16:09 07:27 Sodium 136 L 138 (137-145) mmol/L Potassium 3.6 4.5 (3.5-5.1) mmol/L Chloride 103 106 (98-107) mmol/L Carbon Dioxide 20 L 20 L (22-30) mmol/L BUN 73 H 84 H (7-17) mg/dL Creatinine 3.38 H 3.84 H (0.52-1.04) mg/dL Glucose 127 H 118 H (74-99) mg/dL Calcium 8.5 8.5 (8.4-10.2) mg/dL Total Bilirubin 1.1 (0.2-1.3) mg/dL AST 36 (14-36) U/L ALT 34 (4-34) U/L Alkaline Phosphatase 194 H (38-126) U/L Total Protein 5.7 L (6.3-8.2) g/dL Albumin 2.9 L (3.5-5.0) g/dL
[2022-04-11 16:41] LABS: Glucose,Whole Blood 70 mg/dL (70-110)
[2022-04-11] MEDS: NICOTINE 21MG/24HR PATCH TRANSDERM SCH (18:03)
[2022-04-11] MEDS: ONDANSETRON 4 MG/2 ML VIAL IVP PRN (18:04)
[2022-04-11 18:11] LABS: Glucose,Whole Blood 72 mg/dL (70-110)
--- NOTE | 2022-04-11 18:49 | P.HPIM ---
History of Present Illness H&P Date: 04/11/22 Chief Complaint: Skin/Abscess/Foreign Body 51-year-old female with past medical history remarkable for heart failure, COPD, any ESRD on hemodialysis, diabetes, hypertension, chronic vascular disease including a fem-pop bypass presents emergency Department complaining of a multi day history of the left big toe slight discoloration. There is a line of peripheral lung the superior medial aspect of the left toe. No neurovascular deficits. Chronic lower extremity edema with weeping as well as chronic wounds located over the body that the patient picks at. Patient presents over concern for her toe as well as her lower extremity weeping and chronic pain. Denies any chest pain, shortness breath. Denies abdominal pain, nausea, vomiting. Denies missing any runs of dialysis. Presents for further evaluation at this time. No history of blood clots. Does have a chronic history of poor vasculature. Dialysis accesses the right chest PermCath. Review of Systems REVIEW OF SYSTEMS: CONSTITUTIONAL: No fever, no malaise, no fatigue. HEENT: No recent visual problems or hearing problems. Denied any sore throat. CARDIOVASCULAR: No chest pain, orthopnea, PND, no palpitations, no syncope. PULMONARY: No shortness of breath, no cough, no hemoptysis. GASTROINTESTINAL: No diarrhea, no nausea, no vomiting, no abdominal pain. NEUROLOGICAL: No headaches, no weakness, no numbness. HEMATOLOGICAL: Denies any bleeding or petechiae. GENITOURINARY: Denies any burning micturition, frequency, or urgency. MUSCULOSKELETAL/RHEUMATOLOGICAL: Denies any joint pain, swelling, or any muscle pain. ENDOCRINE: Denies any polyuria or polydipsia. The rest of the 14-point review of systems is negative. 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 History of Any Multi-Drug Resistant Organisms: None Reported Past Surgical History: Appendectomy, Bowel Resection, Orthopedic Surgery, Tubal Ligation Additional Past Surgical History / Comment(s): Hx of colostomy and reversal, rotator cuff repair on Left, hx of fem/pop bypass. Colonoscopy 2012, cardiac catheterization Past Anesthesia/Blood Transfusion Reactions: No Reported Reaction Past Psychological History: Anxiety, Depression Smoking Status: Current every day smoker Past Alcohol Use History: None Reported Past Drug Use History: Marijuana - Past Family History Mother Family Medical History: Congestive Heart Failure (CHF), Diabetes Mellitus Brother(s) Additional Family Medical History / Comment(s): CABG Sister(s) Family Medical History: CVA/TIA Additional Family Medical History / Comment(s): Maternal aunt had breast cancer. Medications and Allergies Home Medications Medication Instructions Recorded Confirmed Type Atorvastatin [Lipitor] 80 mg PO HS 06/30/17 04/10/22 History Aspirin 81 mg PO DAILY 30 Days #30 chew 04/21/20 04/10/22 Rx Albuterol Nebulized [Ventolin 2.5 mg INHALATION RT-TID PRN 02/13/21 04/10/22 History Nebulized] Folic Acid 0.4 mg PO DAILY 02/13/21 04/10/22 History Albuterol Sulfate [Proair Hfa] 2 puff INHALATION RT-Q6H PRN 01/13/22 04/10/22 History Ondansetron [Zofran ODT] 4 mg PO DAILY PRN 01/13/22 04/10/22 History Miriam-Thalia 1 tab PO DAILY 01/13/22 04/10/22 History Clopidogrel [Plavix] 75 mg PO DAILY #90 tab 01/15/22 04/10/22 Rx Calcium Acetate [Phoslo] 667 mg PO TID-W/MEALS 03/28/22 04/10/22 History Cholecalciferol [Vitamin D3 (25 50 mcg PO DAILY 03/28/22 04/10/22 History Mcg = 1000 Iu)] Ezetimibe [Zetia] 10 mg PO DAILY 03/28/22 04/10/22 History Furosemide [Lasix] 80 mg PO BID 03/28/22 04/10/22 History Insulin Glargine,Hum.rec.anlog 15 units SQ HS 03/28/22 04/10/22 History [Lantus Solostar Pen] Insulin Lispro [humaLOG Kwikpen] 5 unit SQ AC-TID 03/28/22 04/10/22 History Insulin Lispro [humaLOG Kwikpen] See Protocol SQ AC-TID 03/28/22 04/10/22 History Lactulose 20 gm PO BID PRN 03/28/22 04/10/22 History Metoprolol Succinate [Metoprolol 25 mg PO DAILY 03/28/22 04/10/22 History Succinate ER] hydrOXYzine HCL 25 mg PO TID PRN 03/28/22 04/10/22 History lisinopriL [Zestril] 2.5 mg PO DAILY 03/28/22 04/10/22 History Allergies Allergy/AdvReac Type Severity Reaction Status Date / Time bee venom protein (honey bee) Allergy Anaphylaxis Verified 04/10/22 19:12 Penicillins Allergy Rash/Hives Verified 04/10/22 19:12 Physical Exam Vitals: Vital Signs Temp Pulse Resp BP Pulse Ox 04/11/22 06:50 74 17 151/67 99 04/10/22 23:36 88 15 144/74 99 04/10/22 19:42 82 15 168/93 98 04/10/22 15:56 98.7 F 69 16 86/64 99 Intake and Output 04/10/22 04/11/22 04/11/22 22:59 06:59 14:59 Other: Weight 74.843 kg HEAD: Normal with no signs of head trauma. EYES: PERRLA, EOMI, conjunctiva normal, no discharge. ENT: Hearing grossly intact, normal oropharynx. RESPIRATORY: Clear breath sounds bilaterally. No wheezes, rales, or rhonchi. C/V: Regular rate and rhythm. S1 and S2 auscultated, symmetrical bilateral lower extremity edema., peripheral pulses intact throughout. ABD: Abd is soft, nontender, nondistended EXT: Normal range of motion, no obvious deformity SKIN: Multiple scabbed over pinpoint wounds over the back, extremities. Patient is weeping venostasis ulcers in the bilateral anterior shins with surrounding erythema. Patient does have very slight purple discoloration of the left big toe, however it appears to only be over the anterior medial aspect of the toe not the entire toe. Appears to be neurovascularly intact. NEURO: Alert and oriented 4. No focal deficits. Results CBC & Chem 7: 04/11/22 07:27 04/11/22 07:27 Labs: Abnormal Lab Results - Last 24 Hours (Table) 04/10/22 04/10/22 04/10/22 Range/Units 16:09 16:09 16:09 WBC 10.8 H (3.8-10.6) k/uL MCV 108.6 H (80.0-100.0) fL RDW 18.1 H (11.5-15.5) % Macrocytosis Marked A PT 14.3 H (9.0-12.0) sec INR 1.4 H (<1.2) Sodium 136 L (137-145) mmol/L Carbon Dioxide 20 L (22-30) mmol/L BUN 73 H (7-17) mg/dL Creatinine 3.38 H (0.52-1.04) mg/dL Glucose 127 H (74-99) mg/dL POC Glucose (mg/dL) (70-110) mg/dL Phosphorus (2.5-4.5) mg/dL Alkaline Phosphatase 194 H (38-126) U/L Troponin I (0.000-0.034) ng/mL Total Protein 5.7 L (6.3-8.2) g/dL Albumin 2.9 L (3.5-5.0) g/dL SARS-CoV-2 (PCR) (Not Detectd) 04/10/22 04/10/22 04/10/22 Range/Units 16:09 16:09 21:08 WBC (3.8-10.6) k/uL MCV (80.0-100.0) fL RDW (11.5-15.5) % Macrocytosis PT (9.0-12.0) sec INR (<1.2) Sodium (137-145) mmol/L Carbon Dioxide (22-30) mmol/L BUN (7-17) mg/dL Creatinine (0.52-1.04) mg/dL Glucose (74-99) mg/dL POC Glucose (mg/dL) (70-110) mg/dL Phosphorus (2.5-4.5) mg/dL Alkaline Phosphatase (38-126) U/L Troponin I 0.044 H* 0.052 H* (0.000-0.034) ng/mL Total Protein (6.3-8.2) g/dL Albumin (3.5-5.0) g/dL SARS-CoV-2 (PCR) Detected A (Not Detectd) 04/11/22 04/11/22 04/11/22 Range/Units 00:15 07:27 07:27 WBC (3.8-10.6) k/uL MCV 112.0 H (80.0-100.0) fL RDW 17.5 H (11.5-15.5) % Macrocytosis Marked A PT (9.0-12.0) sec INR (<1.2) Sodium (137-145) mmol/L Carbon Dioxide 20 L (22-30) mmol/L BUN 84 H (7-17) mg/dL Creatinine 3.84 H (0.52-1.04) mg/dL Glucose 118 H (74-99) mg/dL POC Glucose (mg/dL) (70-110) mg/dL Phosphorus 8.4 H (2.5-4.5) mg/dL Alkaline Phosphatase (38-126) U/L Troponin I 0.046 H* (0.000-0.034) ng/mL Total Protein (6.3-8.2) g/dL Albumin (3.5-5.0) g/dL SARS-CoV-2 (PCR) (Not Detectd) 04/11/22 Range/Units 09:02 WBC (3.8-10.6) k/uL MCV (80.0-100.0) fL RDW (11.5-15.5) % Macrocytosis PT (9.0-12.0) sec INR (<1.2) Sodium (137-145) mmol/L Carbon Dioxide (22-30) mmol/L BUN (7-17) mg/dL Creatinine (0.52-1.04) mg/dL Glucose (74-99) mg/dL POC Glucose (mg/dL) 140 H (70-110) mg/dL Phosphorus (2.5-4.5) mg/dL Alkaline Phosphatase (38-126) U/L Troponin I (0.000-0.034) ng/mL Total Protein (6.3-8.2) g/dL Albumin (3.5-5.0) g/dL SARS-CoV-2 (PCR) (Not Detectd) Assessment and Plan Assessment: 1. Venous stasis ulcers both lower extremities/infection/cellulitis both lower extremities - Initial blood work reveals mild leukocytosis with a white blood count of 10.8 - Ultrasound bilateral lower extremities to rule out DVT - Patient started on IV vancomycin with pharmacy dosing service - ID and vascular surgery is consulted 2. End-stage renal disease/HD; patient is clinically volume overloaded -- nephrology is consulted to resume hemodialysis 3. Mild troponin elevation; troponin elevated at 0.044 and setting of end-stage renal disease; EKG does not reveal any acute ST or T-wave changes 4. Diabetes mellitus; Lantus 15 units subcu daily at bedtime; insulin aspart 5 units subcu before meals 3 times a day 5. Hypertension; lisinopril 2.5 mg daily; metoprolol 25 mg daily 6. Hyperlipidemia; Lipitor 80 mg by mouth daily at bedtime 7. COPD; not in acute exacerbation; continue with home inhaler therapy 8. TIA/CVA; aspirin 81 mg daily, Plavix 75 mg daily and statin therapy DVT prophylaxis; SCDs CODE STATUS; full code
[2022-04-11 21:14] LABS: Glucose,Whole Blood 104 mg/dL (70-110)
[2022-04-11] MEDS: ATORVASTATIN 80 MG TAB PO SCH (21:38)
[2022-04-11] MEDS: ACETAMINOPHEN TAB 325 MG TAB PO PRN (21:38)
--- NOTE | 2022-04-12 00:18 | P.CONS ---
History of Present Illness - Reason for Consult Consult date: 04/11/22 - History of Present Illness Patient is a 51-year female with a past medical history difficult for end-stage renal disease on hemodialysis, congestive heart failure COPD hypertension diabetes mellitus peripheral vascular disease with femoropopliteal bypass, patient recently tested positive for covid19 initially on 03/28/2022 however the patient is not a good historian to tell me if the patient has received any specific treatment for it patient now presenting to the hospital last evening concerning for the left big toe discoloration and some erythema to the left foot dorsum aspect patient symptom has been going on for few days patient denies any history of any trauma has been complaining of pain which is sharp 7-8 out of 10 no radiation currently with open wound or any drainage, patient on presentation to the hospital was afebrile and no fever have recorded subsequently patient was not hypoxic or need for supplemental oxygen patient did have white count of 10.8 kidney function elevated in this patient underlying renal failure liver enzymes are normal did have elevated troponin COVID test came back positive influenza RSV was negative patient did have a chest x-ray no acute cardiopulmonary disease x-ray of the foot no evidence of bony abnormality suggestive of osteomyelitis patient was started on vancomycin infectious disease was consulted for further management Past Medical History Past Medical History: Cancer, Heart Failure, COPD, CVA/TIA, Diabetes Mellitus, Hyperlipidemia, Hypertension, Renal Disease, Vascular Disorder Additional Past Medical History / Comment(s): CHF, valvular heart disease with MR, peripheral vascular disease, CML. 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 History of Any Multi-Drug Resistant Organisms: None Reported Past Surgical History: Appendectomy, Bowel Resection, Orthopedic Surgery, Tubal Ligation Additional Past Surgical History / Comment(s): Hx of colostomy and reversal, rotator cuff repair on Left, hx of fem/pop bypass. Colonoscopy 2012, cardiac catheterization Past Anesthesia/Blood Transfusion Reactions: No Reported Reaction Past Psychological History: Anxiety, Depression Smoking Status: Current every day smoker Past Alcohol Use History: None Reported Past Drug Use History: Marijuana - Past Family History Mother Family Medical History: Congestive Heart Failure (CHF), Diabetes Mellitus Brother(s) Additional Family Medical History / Comment(s): CABG Sister(s) Family Medical History: CVA/TIA Additional Family Medical History / Comment(s): Maternal aunt had breast cancer. Medications and Allergies Home Medications Medication Instructions Recorded Confirmed Type Atorvastatin [Lipitor] 80 mg PO HS 06/30/17 04/10/22 History Aspirin 81 mg PO DAILY 30 Days #30 chew 04/21/20 04/10/22 Rx Albuterol Nebulized [Ventolin 2.5 mg INHALATION RT-TID PRN 02/13/21 04/10/22 History Nebulized] Folic Acid 0.4 mg PO DAILY 02/13/21 04/10/22 History Albuterol Sulfate [Proair Hfa] 2 puff INHALATION RT-Q6H PRN 01/13/22 04/10/22 History Ondansetron [Zofran ODT] 4 mg PO DAILY PRN 01/13/22 04/10/22 History Miriam-Thalia 1 tab PO DAILY 01/13/22 04/10/22 History Clopidogrel [Plavix] 75 mg PO DAILY #90 tab 01/15/22 04/10/22 Rx Calcium Acetate [Phoslo] 667 mg PO TID-W/MEALS 03/28/22 04/10/22 History Cholecalciferol [Vitamin D3 (25 50 mcg PO DAILY 03/28/22 04/10/22 History Mcg = 1000 Iu)] Ezetimibe [Zetia] 10 mg PO DAILY 03/28/22 04/10/22 History Furosemide [Lasix] 80 mg PO BID 03/28/22 04/10/22 History Insulin Glargine,Hum.rec.anlog 15 units SQ HS 03/28/22 04/10/22 History [Lantus Solostar Pen] Insulin Lispro [humaLOG Kwikpen] 5 unit SQ AC-TID 03/28/22 04/10/22 History Insulin Lispro [humaLOG Kwikpen] See Protocol SQ AC-TID 03/28/22 04/10/22 History Lactulose 20 gm PO BID PRN 03/28/22 04/10/22 History Metoprolol Succinate [Metoprolol 25 mg PO DAILY 03/28/22 04/10/22 History Succinate ER] hydrOXYzine HCL 25 mg PO TID PRN 03/28/22 04/10/22 History lisinopriL [Zestril] 2.5 mg PO DAILY 03/28/22 04/10/22 History Allergies Allergy/AdvReac Type Severity Reaction Status Date / Time bee venom protein (honey bee) Allergy Anaphylaxis Verified 04/10/22 19:12 Penicillins Allergy Rash/Hives Verified 04/10/22 19:12 Physical Exam Vitals: Vital Signs Temp Pulse Resp BP Pulse Ox 04/11/22 06:50 74 17 151/67 99 04/10/22 23:36 88 15 144/74 99 04/10/22 19:42 82 15 168/93 98 04/10/22 15:56 98.7 F 69 16 86/64 99 Intake and Output 04/10/22 04/11/22 04/11/22 22:59 06:59 14:59 Other: Weight 74.843 kg Results CBC & Chem 7: 04/11/22 07:27 04/11/22 07:27 Labs: Abnormal Lab Results - Last 24 Hours (Table) 04/10/22 04/10/22 04/10/22 Range/Units 16:09 16:09 16:09 WBC 10.8 H (3.8-10.6) k/uL MCV 108.6 H (80.0-100.0) fL RDW 18.1 H (11.5-15.5) % Macrocytosis Marked A PT 14.3 H (9.0-12.0) sec INR 1.4 H (<1.2) Sodium 136 L (137-145) mmol/L Carbon Dioxide 20 L (22-30) mmol/L BUN 73 H (7-17) mg/dL Creatinine 3.38 H (0.52-1.04) mg/dL Glucose 127 H (74-99) mg/dL POC Glucose (mg/dL) (70-110) mg/dL Phosphorus (2.5-4.5) mg/dL Alkaline Phosphatase 194 H (38-126) U/L Troponin I (0.000-0.034) ng/mL Total Protein 5.7 L (6.3-8.2) g/dL Albumin 2.9 L (3.5-5.0) g/dL SARS-CoV-2 (PCR) (Not Detectd) 04/10/22 04/10/22 04/10/22 Range/Units 16:09 16:09 21:08 WBC (3.8-10.6) k/uL MCV (80.0-100.0) fL RDW (11.5-15.5) % Macrocytosis PT (9.0-12.0) sec INR (<1.2) Sodium (137-145) mmol/L Carbon Dioxide (22-30) mmol/L BUN (7-17) mg/dL Creatinine (0.52-1.04) mg/dL Glucose (74-99) mg/dL POC Glucose (mg/dL) (70-110) mg/dL Phosphorus (2.5-4.5) mg/dL Alkaline Phosphatase (38-126) U/L Troponin I 0.044 H* 0.052 H* (0.000-0.034) ng/mL Total Protein (6.3-8.2) g/dL Albumin (3.5-5.0) g/dL SARS-CoV-2 (PCR) Detected A (Not Detectd) 04/11/22 04/11/22 04/11/22 Range/Units 00:15 07:27 07:27 WBC (3.8-10.6) k/uL MCV 112.0 H (80.0-100.0) fL RDW 17.5 H (11.5-15.5) % Macrocytosis Marked A PT (9.0-12.0) sec INR (<1.2) Sodium (137-145) mmol/L Carbon Dioxide 20 L (22-30) mmol/L BUN 84 H (7-17) mg/dL Creatinine 3.84 H (0.52-1.04) mg/dL Glucose 118 H (74-99) mg/dL POC Glucose (mg/dL) (70-110) mg/dL Phosphorus 8.4 H (2.5-4.5) mg/dL Alkaline Phosphatase (38-126) U/L Troponin I 0.046 H* (0.000-0.034) ng/mL Total Protein (6.3-8.2) g/dL Albumin (3.5-5.0) g/dL SARS-CoV-2 (PCR) (Not Detectd) 04/11/22 Range/Units 09:02 WBC (3.8-10.6) k/uL MCV (80.0-100.0) fL RDW (11.5-15.5) % Macrocytosis PT (9.0-12.0) sec INR (<1.2) Sodium (137-145) mmol/L Carbon Dioxide (22-30) mmol/L BUN (7-17) mg/dL Creatinine (0.52-1.04) mg/dL Glucose (74-99) mg/dL POC Glucose (mg/dL) 140 H (70-110) mg/dL Phosphorus (2.5-4.5) mg/dL Alkaline Phosphatase (38-126) U/L Troponin I (0.000-0.034) ng/mL Total Protein (6.3-8.2) g/dL Albumin (3.5-5.0) g/dL SARS-CoV-2 (PCR) (Not Detectd) Assessment and Plan Plan: 1patient with a positive COVID test in this patient initially tested positive on 03/29/2022 that is more than 2 weeks ago patient currently not hypoxic chest x-ray negative for acute cardiopulmonary disease does not need any further treatment for this positive COVID test. 2patient with left big toe discoloration and some erythema to the dorsal aspect of the foot likely related to underlying PAD patient with no fever or elevated white count x-rays were negative for any bony changes. 3May continue vancomycin while waiting for the work-up to be completed We will follow on clinical condition and cultures to further adjust medication if needed Thank you for this consultation will follow this patient along with you Time with Patient: Greater than 30
[2022-04-12] MEDS: MORPHINE SULFATE 4 MG/ML SYRINGE IV PRN ×5 (02:43→21:36)
[2022-04-12 06:30] LABS: Glucose,Whole Blood 72 mg/dL (70-110)
[2022-04-12] MEDS: INSULIN ASPART (NovoLOG) 100 UNIT/ML VIAL SQ SCH ×3 (06:35→16:44)
[2022-04-12] MEDS: CALCIUM ACETATE 667 MG TAB PO SCH ×3 (06:37→17:02)
[2022-04-12] MEDS: ACETAMINOPHEN TAB 325 MG TAB PO PRN ×2 (06:37→19:41)
[2022-04-12] MEDS: hydrOXYzine HCL 25 MG TAB PO PRN (09:13)
[2022-04-12] MEDS: ASPIRIN 81 MG PO SCH (09:13)
[2022-04-12] MEDS: METOPROLOL SUCCINATE (ER) 25 MG TAB.ER.24H PO SCH (09:14)
[2022-04-12] MEDS: CLOPIDOGREL 75 MG TAB PO SCH (09:14)
[2022-04-12] MEDS: NICOTINE 21MG/24HR PATCH TRANSDERM SCH (09:14)
[2022-04-12] MEDS: FUROSEMIDE 80 MG TAB PO SCH ×2 (09:14→21:36)
[2022-04-12 10:38] LABS: African American GFR (CKD) 17 (>60 ml/min/1.73 sqM); Anion Gap 11 mmol/L; Blood Urea Nitrogen 54 mg/dL (7-17); Calcium 8.3 mg/dL (8.4-10.2); Carbon Dioxide 29 mmol/L (22-30); Chloride 97 mmol/L (98-107); Glucose 72 mg/dL (74-99); Non-African American GFR(CKD) 15 (>60 ml/min/1.73 sqM); Potassium 3.7 mmol/L (3.5-5.1); Sodium 137 mmol/L (137-145)
--- NOTE | 2022-04-12 10:57 | P.PN ---
Subjective Patient is seen in follow-up for end-stage renal disease. She is maintained on hemodialysis on Wednesday schedule. Resting in bed. Denies chest pain or shortness of breath. Blood pressure stable. Has been eating. Has intermittent vomiting. Vital signs are stable. General: Awake. No acute distress. HEENT: Head exam is unremarkable. On nasal cannula. LUNGS: Breath sounds decreased. HEART: Rate and Rhythm are regular. ABDOMEN: Soft, no distention. EXTREMITITES: 16 edema. Chronic changes noted. No drainage. Objective - Vital Signs Vital signs: Vital Signs Temp 97.6 F 04/12/22 07:59 Pulse 96 04/12/22 07:59 Resp 16 04/12/22 07:59 BP 118/62 04/12/22 07:59 Pulse Ox 94 L 04/12/22 07:59 FiO2 Intake & Output 04/11/22 04/12/22 04/12/22 18:59 06:59 18:59 Intake Total 500 Balance 500 Weight 74.843 kg Intake: Oral 500 Other: # Voids 2 - Labs CBC & Chem 7: 04/11/22 07:27 04/12/22 10:08 Labs: Abnormal Lab Results - Last 24 Hours (Table) 04/11/22 04/12/22 Range/Units 07:27 10:08 Chloride 97 L (98-107) mmol/L Carbon Dioxide 20 L (22-30) mmol/L BUN 84 H 54 H (7-17) mg/dL Creatinine 3.84 H 3.37 H (0.52-1.04) mg/dL Glucose 118 H 72 L (74-99) mg/dL Calcium 8.3 L (8.4-10.2) mg/dL Phosphorus 8.4 H (2.5-4.5) mg/dL Microbiology - Last 24 Hours (Table) 04/11/22 08:21 Gram Stain - Preliminary Leg - Left Wound Culture - Preliminary 04/11/22 08:21 Anaerobic Culture - Preliminary Leg - Left 04/10/22 16:15 Blood Culture - Preliminary Blood No Growth after 24 hours Assessment and Plan Plan: Assessment: 1. End-stage renal disease maintained on hemodialysis on Wednesday schedule via permacath. 2. Lower extremity cellulitis versus ulcer. ID and vascular surgery following. 3. Diabetes mellitus. 4. Hypertension with chronic kidney disease. Controlled. 5. Peripheral arterial disease. 6. Chronic kidney disease mineral bone disease. Phosphorous 8.4 dated 04/11/2022. PhosLo resumed. 7. Lower extremity edema. Plan: Hemodialysis Wednesday. Monitor vancomycin levels. Dose to be adjusted for renal function.
[2022-04-12 11:37] LABS: Glucose,Whole Blood 97 mg/dL (70-110)
[2022-04-12] MEDS: TIOTROPIUM 2.5 MCG INHALER INHALATION SCH ×2 (11:38→12:44)
[2022-04-12] MEDS: ALBUTEROL HFA INHALER INHALATION PRN ×3 (11:38→21:22)
[2022-04-12] MEDS: ONDANSETRON 4 MG/2 ML VIAL IVP PRN (14:58)
[2022-04-12 16:42] LABS: Glucose,Whole Blood 104 mg/dL (70-110)
--- NOTE | 2022-04-12 16:48 | P.PN ---
Subjective Progress Note Date: 04/12/22 Principal diagnosis: Covid 19 and left foot cellulitis Patient is a 51-year female with a past medical history difficult for end-stage renal disease on hemodialysis, congestive heart failure COPD hypertension diabetes mellitus peripheral vascular disease with femoropopliteal bypass, patient recently tested positive for covid19 initially on 03/28/2022, presented to hospital with left big toe discoloration and some erythema to the dorsum aspect of the left foot concerning for possible cellulitis. On today's evaluation that is 04/12/2022, the patient denies having any fever or any chills she is breathing comfortably on room air, denies any chest pain or shortness with occasional cough no abdominal pain or any worsening pain to the left foot area Objective - Vital Signs Vital signs: Vital Signs Temp 97.9 F 04/12/22 14:00 Pulse 69 04/12/22 14:00 Resp 17 04/12/22 14:00 BP 151/81 04/12/22 14:00 Pulse Ox 95 04/12/22 14:00 FiO2 Intake & Output 04/11/22 04/12/22 04/12/22 18:59 06:59 18:59 Intake Total 500 Balance 500 Weight 74.843 kg Intake: Oral 500 Other: # Voids 2 - Exam GENERAL DESCRIPTION: Middle-age female lying in bed in no distress RESPIRATORY SYSTEM: Unlabored breathing , decreased breath sounds at bases HEART: S1 S2 regular rate and rhythm , ABDOMEN: Soft , no tenderness EXTREMITIES: No edema feet - Labs CBC & Chem 7: 04/11/22 07:27 04/12/22 10:08 Labs: Abnormal Lab Results - Last 24 Hours (Table) 04/12/22 Range/Units 10:08 Chloride 97 L (98-107) mmol/L BUN 54 H (7-17) mg/dL Creatinine 3.37 H (0.52-1.04) mg/dL Glucose 72 L (74-99) mg/dL Calcium 8.3 L (8.4-10.2) mg/dL Microbiology - Last 24 Hours (Table) 04/11/22 08:21 Gram Stain - Preliminary Leg - Left Wound Culture - Preliminary 04/11/22 08:21 Anaerobic Culture - Preliminary Leg - Left 04/10/22 16:15 Blood Culture - Preliminary Blood No Growth after 24 hours Assessment and Plan (1) COVID-19 Current Visit: Yes Status: Acute Code(s): U07.1 - COVID-19 SNOMED Code(s): 370157938 (2) Cellulitis Current Visit: Yes Status: Acute Code(s): L03.90 - CELLULITIS, UNSPECIFIED SNOMED Code(s): 415730416 Plan: 1patient with a positive COVID test in this patient initially tested positive on 03/29/2022 that is more than 2 weeks ago patient currently not hypoxic chest x-ray negative for acute cardiopulmonary disease does not need any further treatment for this positive COVID test. 2patient with left big toe discoloration and some erythema to the dorsal aspect of the foot likely related to underlying PAD patient with no fever or elevated white count x-rays were negative for any bony changes. 3patient to continue vancomycin while waiting for the work-up to be completed and monitor clinical course closely Time with Patient: Less than 30
--- NOTE | 2022-04-12 18:57 | P.PN ---
Subjective Progress Note Date: 04/12/22 Principal diagnosis: Venous stasis ulcers/cellulitis buccal extremities End-stage renal disease/HD Mild troponin elevation 51-year-old female with past medical history remarkable for heart failure, COPD, any ESRD on hemodialysis, diabetes, hypertension, chronic vascular disease including a fem-pop bypass presents emergency Department complaining of a multi day history of the left big toe slight discoloration. There is a line of peripheral lung the superior medial aspect of the left toe. No neurovascular deficits. Chronic lower extremity edema with weeping as well as chronic wounds located over the body that the patient picks at. Patient presents over concern for her toe as well as her lower extremity weeping and chronic pain. Denies any chest pain, shortness breath. Denies abdominal pain, nausea, vomiting. Denies missing any runs of dialysis. Presents for further evaluation at this time. No history of blood clots. Does have a chronic history of poor vasculature. Dialysis accesses the right chest PermCath. patient with a positive COVID test in this patient initially tested positive on 03/29/2022 that is more than 2 weeks ago patient currently not hypoxic chest x- ray negative for acute cardiopulmonary disease does not need any further treatment for this positive COVID test. patient with left big toe discoloration and some erythema to the dorsal aspect of the foot likely related to underlying PAD patient with no fever or elevated white count x-rays were negative for any bony changes. patient to continue vancomycin while waiting for the work-up to be completed and monitor clinical course closely Objective - Vital Signs Vital signs: Vital Signs Temp 97.9 F 04/12/22 14:00 Pulse 69 04/12/22 14:00 Resp 17 04/12/22 14:00 BP 151/81 04/12/22 14:00 Pulse Ox 95 04/12/22 14:00 FiO2 Intake & Output 04/11/22 04/12/22 04/12/22 18:59 06:59 18:59 Intake Total 500 Balance 500 Weight 74.843 kg Intake: Oral 500 Other: # Voids 2 - Exam - Constitutional General appearance: Present: average body habitus, cooperative, no acute distress - EENT Eyes: Present: anicteric sclerae, EOMI, PERRLA, normal appearance ENT: Present: hearing grossly normal, normal oropharynx Ears: bilateral: normal - Neck Neck: Present: normal ROM. Absent: lymphadenopathy, rigidity, thyromegaly Carotids: negative: bruit present Thyroid: bilateral: normal size, negative: enlarged, nodule - Respiratory Respiratory: bilateral: CTA, negative: rales, rhonchi, wheezing - Cardiovascular Rhythm: regular Heart sounds: normal: S1, S2 Abnormal Heart Sounds: Absent: systolic murmur, diastolic murmur - Gastrointestinal General gastrointestinal: Present: normal bowel sounds, soft. Absent: distended, organomegaly, tenderness - Genitourinary Genitourinary Comment(s): deferred - Integumentary Integumentary: Present: normal turgor. Absent: jaundiced, rash, ulcer - Neurologic Neurologic: Present: CNII-XII intact. Absent: focal deficits - Musculoskeletal Musculoskeletal: Present: gait normal, strength equal bilaterally - Psychiatric Psychiatric: Present: A&O x's 3, appropriate affect, intact judgment & insight - Labs CBC & Chem 7: 04/11/22 07:27 04/12/22 10:08 Labs: Abnormal Lab Results - Last 24 Hours (Table) 04/12/22 Range/Units 10:08 Chloride 97 L (98-107) mmol/L BUN 54 H (7-17) mg/dL Creatinine 3.37 H (0.52-1.04) mg/dL Glucose 72 L (74-99) mg/dL Calcium 8.3 L (8.4-10.2) mg/dL Microbiology - Last 24 Hours (Table) 04/11/22 08:21 Gram Stain - Preliminary Leg - Left Wound Culture - Preliminary 04/11/22 08:21 Anaerobic Culture - Preliminary Leg - Left 04/10/22 16:15 Blood Culture - Preliminary Blood No Growth after 24 hours Assessment and Plan Assessment: 1. Venous stasis ulcers both lower extremities/infection/cellulitis both lower extremities - Initial blood work reveals mild leukocytosis with a white blood count of 10.8 - Ultrasound bilateral lower extremities to rule out DVT - Patient started on IV vancomycin with pharmacy dosing service - ID and vascular surgery is consulted 2. End-stage renal disease/HD; patient is clinically volume overloaded -- nephrology is consulted to resume hemodialysis 3. Mild troponin elevation; troponin elevated at 0.044 and setting of end-stage renal disease; EKG does not reveal any acute ST or T-wave changes 4. Diabetes mellitus; Lantus 15 units subcu daily at bedtime; insulin aspart 5 units subcu before meals 3 times a day 5. Hypertension; lisinopril 2.5 mg daily; metoprolol 25 mg daily 6. Hyperlipidemia; Lipitor 80 mg by mouth daily at bedtime 7. COPD; not in acute exacerbation; continue with home inhaler therapy 8. TIA/CVA; aspirin 81 mg daily, Plavix 75 mg daily and statin therapy DVT prophylaxis; SCDs CODE STATUS; full code
[2022-04-12 20:45] LABS: Glucose,Whole Blood 102 mg/dL (70-110)
[2022-04-12] MEDS: INSULIN DETEMIR (LEVEMIR) 100 UNIT/ML SYR SQ SCH (20:50)
[2022-04-12] MEDS: ATORVASTATIN 80 MG TAB PO SCH (21:36)
[2022-04-13] MEDS: ONDANSETRON 4 MG/2 ML VIAL IVP PRN ×3 (00:25→21:07)
[2022-04-13] MEDS: MORPHINE SULFATE 4 MG/ML SYRINGE IV PRN (03:49)
[2022-04-13] MEDS: hydrOXYzine HCL 25 MG TAB PO PRN ×2 (03:55→17:51)
[2022-04-13 05:32] LABS: Vancomycin,Random 19.8 ug/mL
[2022-04-13 06:17] LABS: Glucose,Whole Blood 93 mg/dL (70-110)
[2022-04-13] MEDS: INSULIN ASPART (NovoLOG) 100 UNIT/ML VIAL SQ SCH ×3 (06:23→18:03)
[2022-04-13] MEDS: CALCIUM ACETATE 667 MG TAB PO SCH ×3 (06:26→19:03)
[2022-04-13] MEDS: ACETAMINOPHEN TAB 325 MG TAB PO PRN ×2 (06:53→16:02)
[2022-04-13] MEDS: ALBUTEROL HFA INHALER INHALATION PRN ×3 (08:39→15:46)
[2022-04-13] MEDS: TIOTROPIUM 2.5 MCG INHALER INHALATION SCH (08:40)
[2022-04-13 08:56] LABS: African American GFR (CKD) 13.5 (60.0-200.0); Non-African American GFR(CKD) 11.7 (60.0-200.0)
[2022-04-13] MEDS: CLOPIDOGREL 75 MG TAB PO SCH (09:34)
[2022-04-13] MEDS: NICOTINE 21MG/24HR PATCH TRANSDERM SCH (09:35)
[2022-04-13] MEDS: ASPIRIN 81 MG PO SCH (09:35)
[2022-04-13] MEDS: METOPROLOL SUCCINATE (ER) 25 MG TAB.ER.24H PO SCH (09:35)
[2022-04-13] MEDS: FUROSEMIDE 80 MG TAB PO SCH ×2 (09:35→21:07)
--- NOTE | 2022-04-13 12:02 | P.PN ---
Subjective Patient is seen in follow-up for end-stage renal disease. She is maintained on hemodialysis on Wednesday schedule. Denies chest pain or shortness of breath. Blood pressure stable. Has been eating. No vomiting today. Vital signs are stable. General: Awake. No acute distress. HEENT: Head exam is unremarkable. On nasal cannula. LUNGS: Breath sounds decreased. HEART: Rate and Rhythm are regular. ABDOMEN: Soft, no distention. EXTREMITITES: 1+ edema. Chronic changes noted. No drainage. Objective - Vital Signs Vital signs: Vital Signs Temp 97.6 F 04/13/22 07:33 Pulse 62 04/13/22 07:33 Resp 16 04/13/22 09:34 BP 139/75 04/13/22 07:33 Pulse Ox 93 L 04/13/22 07:33 FiO2 Intake & Output 04/12/22 04/13/22 04/13/22 18:59 06:59 18:59 Weight 74.6 kg Other: # Voids 2 0 - Labs CBC & Chem 7: 04/11/22 07:27 04/13/22 04:36 Labs: Abnormal Lab Results - Last 24 Hours (Table) 04/13/22 Range/Units 04:36 Creatinine 4.1 H (0.6-1.5) mg/dL Est GFR (CKD-EPI)AfAm 13.5 L (60.0-200.0) Est GFR (CKD-EPI)NonAf 11.7 L (60.0-200.0) Microbiology - Last 24 Hours (Table) 04/11/22 08:21 Anaerobic Culture - Preliminary Leg - Left 04/11/22 08:21 Gram Stain - Preliminary Leg - Left Wound Culture - Preliminary Pantoea agglomerans 04/10/22 16:15 Blood Culture - Preliminary Blood No Growth after 48 hours 04/10/22 16:00 Blood Culture - Preliminary Blood No Growth after 24 hours Assessment and Plan Plan: Assessment: 1. End-stage renal disease maintained on hemodialysis on Wednesday schedule via permacath. 2. Lower extremity cellulitis versus ulcer. ID and vascular surgery following. 3. Diabetes mellitus. 4. Hypertension with chronic kidney disease. Controlled. 5. Peripheral arterial disease. 6. Chronic kidney disease mineral bone disease. Phosphorous 8.4 dated 04/11/2022. PhosLo resumed. 7. Lower extremity edema. Plan: Hemodialysis Wednesday. Monitor vancomycin levels. Dose to be adjusted for renal function. Maintain Lasix.
[2022-04-13 12:08] LABS: Glucose,Whole Blood 118 mg/dL (70-110)
--- NOTE | 2022-04-13 13:30 | PN ---
PROGRESS NOTE DATE OF SERVICE: 04/13/2022 HISTORY OF PRESENT ILLNESS: This is a 51-year-old woman who was admitted with bilateral leg ulcers, also had unusual organism grown from the culture called Pantoea agglomerans. The patient is on broad-spectrum IV antibiotics. Infectious Disease is following the patient closely. The blood cultures negative so far. PAST MEDICAL HISTORY: Reviewed. REVIEW OF SYSTEMS: A 14-point review is negative except as mentioned earlier. CURRENT MEDICATIONS: Reviewed include vancomycin, dose and rest of medications noted. PHYSICAL EXAMINATION: VITAL SIGNS: Pulse is 62, blood pressure 139/72, respirations 16. HEENT: Conjunctivae normal. NECK: No jugular venous distention. CARDIOVASCULAR: S1, S2 muffled. RESPIRATION: Breath sounds diminished at the bases. A few scattered rhonchi. ABDOMEN: Soft. LEGS: Bilateral leg cellulitis, erythema, ulceration present. NERVOUS SYSTEM: No focal deficits. LABS: Creatinine is 4.1. ASSESSMENT: 1. Bilateral leg ulcers with slow improvement with Pantoea agglomerans. 2. End-stage renal disease, on hemodialysis. 3. Mild troponin elevation. 4. Diabetes mellitus. 5. Hypertension. 6. Hyperlipidemia. 7. Multiple medical issues. RECOMMENDATIONS: This 51-year-old woman presented with multiple complex medical issues, we will monitor the patient closely. Continue the antibiotics and do a repeat culture. Closely follow with Infectious Diseases. DVT prophylaxis. Resume the home medications. Overall prognosis guarded. The unusual bug which was grown is actually a plant pathogen which comes under the gram-negative catheter and closely follow with Infectious Diseases. Further recommendations to follow. MMODL / IJN: [id number] /
[2022-04-13] MEDS ORDERED: diphenhydrAMINE 25 MG CAP PO PRN (15:04)
[2022-04-13 16:55] LABS: Glucose,Whole Blood 115 mg/dL (70-110)
[2022-04-13] MEDS ORDERED: HYDROcodone/APAP 5-325MG 1 EACH TAB PO PRN (17:09)
[2022-04-13] MEDS ORDERED: VANCOMYCIN 1,250 MG in SODIUM CHLORIDE 0.9% 250 ML IVPB ONE (18:00)
--- NOTE | 2022-04-13 18:16 | XR ---
EXAMINATION TYPE: XR Hip Bilateral Complete DATE OF EXAM: 04/13/2022 6:06 PM INDICATION: Patient age:Female; 51 years old; Reason for study: Fall; COMPARISON: None. TECHNIQUE: The bilateral hip was examined in the frontal and lateral projections and a AP pelvis. FINDINGS: Surgical clips present renal regions bilaterally. Atherosclerosis of the arterial vasculatu re. Mild osteophyte formation of the acetabulum. The osseous structures are intact. Soft tissues sherlyn sly unremarkable. IMPRESSION: 1. No acute process. 2. Mild osteoarthrosis.
[2022-04-13 20:20] LABS: Glucose,Whole Blood 109 mg/dL (70-110)
[2022-04-13] MEDS: HEPARIN SODIUM,PORCINE/PF 5,000 UNIT/0.5 ML SYRINGE SQ SCH (21:06)
[2022-04-13] MEDS: INSULIN DETEMIR (LEVEMIR) 100 UNIT/ML SYR SQ SCH (21:07)
[2022-04-14 06:26] LABS: Glucose,Whole Blood 104 mg/dL (70-110)
[2022-04-14] MEDS: ONDANSETRON 4 MG/2 ML VIAL IVP PRN ×3 (06:31→21:29)
[2022-04-14] MEDS: CALCIUM ACETATE 667 MG TAB PO SCH ×3 (06:31→17:03)
[2022-04-14] MEDS: INSULIN ASPART (NovoLOG) 100 UNIT/ML VIAL SQ SCH ×4 (06:31→21:30)
[2022-04-14] MEDS: ACETAMINOPHEN TAB 325 MG TAB PO PRN (06:37)
[2022-04-14] MEDS ORDERED: PANTOPRAZOLE 40 MG TABLET PO SCH (07:30)
[2022-04-14] MEDS: TIOTROPIUM 2.5 MCG INHALER INHALATION SCH (08:11)
[2022-04-14] MEDS ORDERED: CHOLECALCIFEROL 25 MCG (1000 IU) TABLET PO SCH (09:00)
[2022-04-14] MEDS ORDERED: FOLIC ACID 1 MG TAB PO SCH (09:00)
[2022-04-14] MEDS ORDERED: EZETIMIBE 10 MG TAB PO SCH (09:00)
[2022-04-14 09:06] LABS: Basophils # (A) 0.06 X 10*3/uL (0.00-0.10); Basophils % (A) 0.3 %; Eosinophils # (A) 0 X 10*3/uL (0.04-0.35); Eosinophils % (A) 0 %; HCT 42.4 % (37.2-46.3); HGB 14.1 g/dL (12.0-15.0); Immature Grans, Automated 1.3 %; Lymphocytes # (A) 0.72 X 10*3/uL (0.90-5.00); Lymphocytes % (A) 4.1 %; MCH 34.6 pg (27.0-32.0); MCHC 33.3 g/dL (32.0-37.0); MCV 104.2 fL (80.0-97.0); Monocytes % (A) 5.1 %; NRBC Per 100 WBC 0.7 /100 WBCS (0.0-0.0); Neutrophils # (A) 15.86 X 10*3/uL (1.80-7.70); Neutrophils % (A) 89.2 %; Platelet Count 203 X 10*3/uL (140-440); RBC 4.07 X 10*6/uL (4.10-5.20); RDW 19.1 % (11.5-14.5); WBC 17.77 X 10*3/uL (4.50-10.00)
[2022-04-14 09:23] LABS: African American GFR (CKD) 10.5 (60.0-200.0); Anion Gap 27.8 mmol/L (10.00-18.00); BUN/Creat Ratio 15.35 Ratio (12.00-20.00); Blood Urea Nitrogen 78.3 mg/dL (9.0-27.0); Calcium 8.5 mg/dL (8.7-10.3); Carbon Dioxide 18.2 mmol/L (20.0-27.5); Potassium 5.5 mmol/L (3.5-5.5)
--- NOTE | 2022-04-14 12:02 | P.PN ---
Subjective Patient is seen for follow-up for end-stage renal disease. She is currently seen on hemodialysis Patient is tolerating her treatment well. Complaining of pain in the feet. Objective - Vital Signs Vital signs: Vital Signs Temp 98.6 F 04/14/22 02:00 Pulse 51 L 04/14/22 08:00 Resp 17 04/14/22 08:00 BP 104/45 04/14/22 08:00 Pulse Ox 94 L 04/14/22 08:00 FiO2 Intake & Output 04/13/22 04/14/22 04/14/22 18:59 06:59 18:59 Other: # Voids 3 5 # Bowel Movements 1 - Exam Patient is awake, comfortable, no acute distress Examination of the heart S1 and S2 Examination of the lungs bilateral breath sounds are heard Abdomen is soft nontender Examination of lower extremities shows significant edema bilaterally with chronic skin changes and sores noted on multiple toes bilaterally. - Labs CBC & Chem 7: 04/14/22 05:14 04/14/22 05:14 Labs: Abnormal Lab Results - Last 24 Hours (Table) 04/13/22 04/13/22 04/13/22 Range/Units 12:06 13:04 16:54 WBC (4.50-10.00) X 10*3/uL RBC (4.10-5.20) X 10*6/uL MCV (80.0-97.0) fL MCH (27.0-32.0) pg RDW (11.5-14.5) % MPV (9.5-12.2) fL Absolute Nucleated RBC (0.00-0.00) X 10*3/uL Immature Gran # (0.00-0.04) X 10*3/uL Neutrophils # (1.80-7.70) X 10*3/uL Lymphocytes # (0.90-5.00) X 10*3/uL Eosinophils # (0.04-0.35) X 10*3/uL NRBC/100 WBC Diff (0.0-0.0) /100 WBCS Chloride (96-109) mmol/L Carbon Dioxide (20.0-27.5) mmol/L Anion Gap (10.00-18.00) mmol/L BUN (9.0-27.0) mg/dL Creatinine (0.6-1.5) mg/dL Est GFR (CKD-EPI)AfAm (60.0-200.0) Est GFR (CKD-EPI)NonAf (60.0-200.0) Glucose (70-110) mg/dL POC Glucose (mg/dL) 118 H 115 H (70-110) mg/dL Calcium (8.7-10.3) mg/dL C-Reactive Protein 5.7 H (<1.0) mg/dL 04/14/22 04/14/22 Range/Units 05:14 05:14 WBC 17.77 H (4.50-10.00) X 10*3/uL RBC 4.07 L (4.10-5.20) X 10*6/uL MCV 104.2 H (80.0-97.0) fL MCH 34.6 H (27.0-32.0) pg RDW 19.1 H (11.5-14.5) % MPV 13.0 H (9.5-12.2) fL Absolute Nucleated RBC 0.13 H (0.00-0.00) X 10*3/uL Immature Gran # 0.23 H (0.00-0.04) X 10*3/uL Neutrophils # 15.86 H (1.80-7.70) X 10*3/uL Lymphocytes # 0.72 L (0.90-5.00) X 10*3/uL Eosinophils # 0 L (0.04-0.35) X 10*3/uL NRBC/100 WBC Diff 0.7 H (0.0-0.0) /100 WBCS Chloride 90 L (96-109) mmol/L Carbon Dioxide 18.2 L (20.0-27.5) mmol/L Anion Gap 27.80 H (10.00-18.00) mmol/L BUN 78.3 H (9.0-27.0) mg/dL Creatinine 5.1 H (0.6-1.5) mg/dL Est GFR (CKD-EPI)AfAm 10.5 L (60.0-200.0) Est GFR (CKD-EPI)NonAf 9.0 L (60.0-200.0) Glucose 115 H (70-110) mg/dL POC Glucose (mg/dL) (70-110) mg/dL Calcium 8.5 L (8.7-10.3) mg/dL C-Reactive Protein (<1.0) mg/dL Microbiology - Last 24 Hours (Table) 04/10/22 16:15 Blood Culture - Preliminary Blood No Growth after 72 hours 04/10/22 16:00 Blood Culture - Preliminary Blood No Growth after 48 hours 04/11/22 08:21 Gram Stain - Final Leg - Left Wound Culture - Final Pantoea agglomerans Enterococcus faecium VRE 04/11/22 08:21 Anaerobic Culture - Preliminary Leg - Left Assessment and Plan Assessment: 1. End-stage renal disease maintained on hemodialysis on Wednesday schedule via permacath. 2. Lower extremity cellulitis versus ulcer. ID and vascular surgery following. 3. Diabetes mellitus. 4. Hypertension with chronic kidney disease. Controlled. 5. Peripheral arterial disease. 6. Chronic kidney disease mineral bone disease. Phosphorous 8.4 dated 04/11/2022. PhosLo resumed. 7. Lower extremity edema. Plan: Maintain hemodialysis on a Wednesday schedule Continue daptomycin Continue with Lasix
[2022-04-14 12:15] LABS: Glucose,Whole Blood 84 mg/dL (70-110)
--- NOTE | 2022-04-14 13:39 | CDI ---
Documentation Clarification Form Date: 04/14/2022 01:26:34 PM From: Sara Lopez RN CCDS Admit Date: 04/10/2022 08:49:00 PM Patient Name: Chandni Her Visit Number: [id number] Discharge Date: ATTENTION: The Clinical Documentation Specialists (CDI) and [facility] Coding Staff appreciate your assistance in clarifying documentation. Please respond to the clarification below the line at the bottom and electronically sign. The CDI & [facility] Coding staff will review the response and follow-up if needed. Please note: Queries are made part of the Legal Health Record. If you have any questions, please contact the author of this message via ITS. Dr. Jayden Galvez Your patient has the documented diagnosis of unspecified CHF 04/11, H&P. Additional information regarding the type, acuity of CHF is requested. History/Risk Factors: 51-year-old female presents to ED with lower extremity weeping and chronic pain. Medical History: ESRD, Vascular disease, DM and Heart failure. 04/11, H&P. Clinical Indicators: VS/Pulse OX: 04/10 B/P 86/64; HR 69; Temp 98.7 F Oral; RR 16; SpO2 99% ra BNP: 04/10 Echocardiogram Results: 04/18/20 Left ventricular systolic function is moderate severely impaired EF 30-35%. LV end diastolic pressure is elevated 22.79, Mild aortic regurgitation. Mild mitral regurgitation. Mild tricuspid regurgitation. Chest X Ray: 04/10 No acute pulmonary process Treatment: 04/10 - Lasix 80mg PO daily; 04/11 Toprol XL 25mg PO Daily; 04/11 Lisinopril 2.5mg PO Daily. In your professional opinion, can you please clarify the[acuity and type of CHF if known? [ ] Chronic Systolic Heart Failure (reduced EF) [ ] Other, please specify [ ] Unable to determine (Template Last Revised: June 2020) Chronic Systolic Heart Failure (reduced EF) [facility]
[2022-04-14 14:18] LABS: Glucose,Whole Blood 80 mg/dL (70-110)
[2022-04-14] MEDS: HEPARIN SODIUM,PORCINE/PF 5,000 UNIT/0.5 ML SYRINGE SQ SCH ×2 (14:31→21:29)
[2022-04-14] MEDS: METOPROLOL SUCCINATE (ER) 25 MG TAB.ER.24H PO SCH (14:32)
[2022-04-14] MEDS: CLOPIDOGREL 75 MG TAB PO SCH (14:35)
[2022-04-14] MEDS: FUROSEMIDE 80 MG TAB PO SCH ×2 (14:35→21:30)
[2022-04-14] MEDS: ASPIRIN 81 MG PO SCH (14:35)
[2022-04-14] MEDS: NICOTINE 21MG/24HR PATCH TRANSDERM SCH (14:36)
[2022-04-14] MEDS: PANTOPRAZOLE 40 MG/10 ML VIAL IVP SCH ×2 (15:05→21:30)
[2022-04-14] MEDS: MORPHINE SULFATE 4 MG/ML SYRINGE IV PRN (15:09)
[2022-04-14 16:21] VITALS: TEMP 98.1
[2022-04-14 16:33] LABS: Amylase 40 U/L (30-110); Lipase 63 U/L (23-300)
--- NOTE | 2022-04-14 16:57 | P.CNPUL ---
History of Present Illness Consult date: 04/14/22 Chief complaint: Acute hypotension History of present illness: 49-year-old female patient of the chest to the intensive care because of hypotension. The patient has been started on dialysis for the past few months and the patient has developed end-stage renal disease. She has a permacath in the right chest area. The patient is undergoing hemodialysis a regular basis and on today's evaluation the patient underwent hemodialysis with a total of 3 L of ultrafiltration following that the patient became lethargic and obtunded and hypotensive with a systolic blood pressure drop in the mid 60s. Based on that, the patient got transferred to the intensive care unit. She was given 500 mL of normal saline bolus. Immediately, the blood pressure responded and the patient did not require any pressors in the intensive care unit. She denies having any chest pain. She is awake and alert. She is complaining of nausea. No shortness of breath. No cough or sputum production. She is currently on room air oxygen. She does have some vague abdominal discomfort. Urine output is minimal. The patient is chronic selective of the lower extremities and multiple was in the lower extremities in various stages mainly stage II. She is known to have severe peripheral vascular disease with previous fem-pop bypass surgery, diabetes mellitus, hypertension, COPD, and congestion heart failure with systolic heart failure and impairment of the LV function. Initial presentation to the hospital was related to erythema nodosum aspect of the left foot in addition to erythema extending between the ankles and the below the knee area bilaterally and the patient was covered with a combination of IV Rocephin and daptomycin. She was found to have VRE in the left wound culture. Infectious diseases on the case. Furthermore, the patient had a fall yesterday and x-rays of the hip showed no evidence of any fracture. X-rays of the foot showed no evidence of any osteomyelitis. She is awake and alert at this point in time. Her blood work shows a white second of 17.7 with a hemoglobin of 14. BUN is at 78 and a creatinine of 5.1 and sodium level is at 136. Amylase and lipase are within normal limits. Glucose is 115 from this morning. Review of Systems CONSTITUTIONAL: No reported fever or chills. She has increased fatigue and tiredness and lethargy. HEENT: No recent visual problems or hearing problems. Denied any sore throat. CARDIOVASCULAR: No chest pain, orthopnea, PND, no palpitations, no syncope. PULMONARY: No shortness of breath, no cough, no hemoptysis. GASTROINTESTINAL: No diarrhea, positive nausea, no vomiting, no abdominal pain. NEUROLOGICAL: No headaches, generalized weakness, no numbness. HEMATOLOGICAL: Denies any bleeding or petechiae. GENITOURINARY: Denies any burning micturition, frequency, or urgency. MUSCULOSKELETAL/RHEUMATOLOGICAL: Denies any joint pain, swelling, or any muscle pain. ENDOCRINE: Denies any polyuria or polydipsia. Skin multiple wounds and ulcerations and cigarettes of the lower oximetry is bilaterally. 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 History of Any Multi-Drug Resistant Organisms: None Reported Past Surgical History: Appendectomy, Bowel Resection, Orthopedic Surgery, Tubal Ligation Additional Past Surgical History / Comment(s): Hx of colostomy and reversal, rotator cuff repair on Left, hx of fem/pop bypass. Colonoscopy 2012, cardiac catheterization Past Anesthesia/Blood Transfusion Reactions: No Reported Reaction Past Psychological History: Anxiety, Depression Smoking Status: Current every day smoker Past Alcohol Use History: None Reported Past Drug Use History: Marijuana - Past Family History Mother Family Medical History: Congestive Heart Failure (CHF), Diabetes Mellitus Brother(s) Additional Family Medical History / Comment(s): CABG Sister(s) Family Medical History: CVA/TIA Additional Family Medical History / Comment(s): Maternal aunt had breast cancer. Medications and Allergies Home Medications Medication Instructions Recorded Confirmed Type Atorvastatin [Lipitor] 80 mg PO HS 06/30/17 04/10/22 History Aspirin 81 mg PO DAILY 30 Days #30 chew 04/21/20 04/10/22 Rx Albuterol Nebulized [Ventolin 2.5 mg INHALATION RT-TID PRN 02/13/21 04/10/22 History Nebulized] Folic Acid 0.4 mg PO DAILY 02/13/21 04/10/22 History Albuterol Sulfate [Proair Hfa] 2 puff INHALATION RT-Q6H PRN 01/13/22 04/10/22 History Ondansetron [Zofran ODT] 4 mg PO DAILY PRN 01/13/22 04/10/22 History Miriam-Thalia 1 tab PO DAILY 01/13/22 04/10/22 History Clopidogrel [Plavix] 75 mg PO DAILY #90 tab 01/15/22 04/10/22 Rx Calcium Acetate [Phoslo] 667 mg PO TID-W/MEALS 03/28/22 04/10/22 History Cholecalciferol [Vitamin D3 (25 50 mcg PO DAILY 03/28/22 04/10/22 History Mcg = 1000 Iu)] Ezetimibe [Zetia] 10 mg PO DAILY 03/28/22 04/10/22 History Furosemide [Lasix] 80 mg PO BID 03/28/22 04/10/22 History Insulin Glargine,Hum.rec.anlog 15 units SQ HS 03/28/22 04/10/22 History [Lantus Solostar Pen] Insulin Lispro [humaLOG Kwikpen] 5 unit SQ AC-TID 03/28/22 04/10/22 History Insulin Lispro [humaLOG Kwikpen] See Protocol SQ AC-TID 03/28/22 04/10/22 History Lactulose 20 gm PO BID PRN 03/28/22 04/10/22 History Metoprolol Succinate [Metoprolol 25 mg PO DAILY 03/28/22 04/10/22 History Succinate ER] hydrOXYzine HCL 25 mg PO TID PRN 03/28/22 04/10/22 History lisinopriL [Zestril] 2.5 mg PO DAILY 03/28/22 04/10/22 History Allergies Allergy/AdvReac Type Severity Reaction Status Date / Time bee venom protein (honey bee) Allergy Anaphylaxis Verified 04/10/22 19:12 Penicillins Allergy Rash/Hives Verified 04/10/22 19:12 Physical Exam Vitals: Vital Signs Temp Pulse Pulse Resp BP BP Pulse Ox 04/14/22 16:00 98.1 F 54 L 16 134/73 93 L 04/14/22 15:00 49 L 7 L 118/64 93 L 04/14/22 14:18 129/65 95 04/14/22 12:24 97.6 F 54 L 18 128/63 04/14/22 08:00 51 L 17 104/45 94 L 04/14/22 07:42 18 04/14/22 02:00 98.6 F 53 L 17 164/80 94 L 04/13/22 18:18 97.8 F 54 L 18 96/50 95 Intake and Output 04/14/22 04/14/22 04/14/22 06:59 14:59 22:59 Intake Total 300 Output Total 3300 Balance -3000 Intake: Hemodialysis 300 Output: Hemodialysis 3300 Other: # Voids 5 0 Gen. appearance the patient is calm and comfortable, currently on room air oxygen. No signs of any respiratory distress Head exam was generally normal. There was no scleral icterus or corneal arcus. Mucous membranes were moist. Neck was supple and without jugular venous distension, thyromegaly, or carotid bruits. Carotids were easily palpable bilaterally. There was no adenopathy. Lungs were clear to auscultation and percussion, and with normal diaphragmatic excursion. No wheezes or rales were noted. The patient is a permacath over the right anterior chest area. Cardiac exam revealed the PMI to be normally situated and sized. The rhythm was regular and no extrasystoles were noted during several minutes of auscultation. The first and second heart sounds were normal and physiologic splitting of the second heart sound was noted. There were no murmurs, rubs, clicks, or gallops. Abdomen is slightly tender diffuse. No signs of an acute abdomen. Abdomen is soft is no firm and there is no rebound tenderness or guarding. No organomegaly. No ascites. Extremities show diminished pulses in the feet bilaterally and the pulses in the feet cannot be accurately palpated. There is evidence of multiple wounds the various stages mainly stage II throughout her lower extremities bilaterally and there is pulses on her toes bilaterally. There is also erythema between the sheets itching below the knee bilaterally with some warmth indicating possibility of an underlying cellulitis. There is also evidence of neuropathy, Charcot joints and pressure ones over the toes bilaterally. Several of these ones are scabbed and some of them are open with some drainage. Neurologically, the patient is awake and alert and the patient does not have any focal neurological deficit. Cranial nerves are essentially intact. There is global generalized weakness and the patient is weak. Neurologic exam is nonfocal. Results - Laboratory Findings CBC and BMP: 04/14/22 05:14 04/14/22 05:14 PT/INR, D-dimer PT 14.3 sec (9.0-12.0) H 04/10/22 16:09 INR 1.4 (<1.2) H 04/10/22 16:09 Abnormal lab findings: Abnormal Labs 04/10/22 04/10/22 04/10/22 16:09 16:09 16:09 WBC 10.8 H RBC MCV 108.6 H MCH RDW 18.1 H MPV Absolute Nucleated RBC Immature Gran # Neutrophils # Lymphocytes # Eosinophils # NRBC/100 WBC Diff Macrocytosis Marked A PT 14.3 H INR 1.4 H Sodium 136 L Chloride Carbon Dioxide 20 L Anion Gap BUN 73 H Creatinine 3.38 H Est GFR (CKD-EPI)AfAm Est GFR (CKD-EPI)NonAf Glucose 127 H POC Glucose (mg/dL) Calcium Phosphorus Alkaline Phosphatase 194 H Troponin I C-Reactive Protein Total Protein 5.7 L Albumin 2.9 L SARS-CoV-2 (PCR) 04/10/22 04/10/22 04/10/22 16:09 16:09 21:08 WBC RBC MCV MCH RDW MPV Absolute Nucleated RBC Immature Gran # Neutrophils # Lymphocytes # Eosinophils # NRBC/100 WBC Diff Macrocytosis PT INR Sodium Chloride Carbon Dioxide Anion Gap BUN Creatinine Est GFR (CKD-EPI)AfAm Est GFR (CKD-EPI)NonAf Glucose POC Glucose (mg/dL) Calcium Phosphorus Alkaline Phosphatase Troponin I 0.044 H* 0.052 H* C-Reactive Protein Total Protein Albumin SARS-CoV-2 (PCR) Detected A 04/11/22 04/11/22 04/11/22 00:15 07:27 07:27 WBC RBC MCV 112.0 H MCH RDW 17.5 H MPV Absolute Nucleated RBC Immature Gran # Neutrophils # Lymphocytes # Eosinophils # NRBC/100 WBC Diff Macrocytosis Marked A PT INR Sodium Chloride Carbon Dioxide 20 L Anion Gap BUN 84 H Creatinine 3.84 H Est GFR (CKD-EPI)AfAm Est GFR (CKD-EPI)NonAf Glucose 118 H POC Glucose (mg/dL) Calcium Phosphorus 8.4 H Alkaline Phosphatase Troponin I 0.046 H* C-Reactive Protein Total Protein Albumin SARS-CoV-2 (PCR) 04/11/22 04/12/22 04/13/22 09:02 10:08 04:36 WBC RBC MCV MCH RDW MPV Absolute Nucleated RBC Immature Gran # Neutrophils # Lymphocytes # Eosinophils # NRBC/100 WBC Diff Macrocytosis PT INR Sodium Chloride 97 L Carbon Dioxide Anion Gap BUN 54 H Creatinine 3.37 H 4.1 H Est GFR (CKD-EPI)AfAm 13.5 L Est GFR (CKD-EPI)NonAf 11.7 L Glucose 72 L POC Glucose (mg/dL) 140 H Calcium 8.3 L Phosphorus Alkaline Phosphatase Troponin I C-Reactive Protein Total Protein Albumin SARS-CoV-2 (PCR) 04/13/22 04/13/22 04/13/22 12:06 13:04 16:54 WBC RBC MCV MCH RDW MPV Absolute Nucleated RBC Immature Gran # Neutrophils # Lymphocytes # Eosinophils # NRBC/100 WBC Diff Macrocytosis PT INR Sodium Chloride Carbon Dioxide Anion Gap BUN Creatinine Est GFR (CKD-EPI)AfAm Est GFR (CKD-EPI)NonAf Glucose POC Glucose (mg/dL) 118 H 115 H Calcium Phosphorus Alkaline Phosphatase Troponin I C-Reactive Protein 5.7 H Total Protein Albumin SARS-CoV-2 (PCR) 04/14/22 04/14/22 05:14 05:14 WBC 17.77 H RBC 4.07 L MCV 104.2 H MCH 34.6 H RDW 19.1 H MPV 13.0 H Absolute Nucleated RBC 0.13 H Immature Gran # 0.23 H Neutrophils # 15.86 H Lymphocytes # 0.72 L Eosinophils # 0 L NRBC/100 WBC Diff 0.7 H Macrocytosis PT INR Sodium Chloride 90 L Carbon Dioxide 18.2 L Anion Gap 27.80 H BUN 78.3 H Creatinine 5.1 H Est GFR (CKD-EPI)AfAm 10.5 L Est GFR (CKD-EPI)NonAf 9.0 L Glucose 115 H POC Glucose (mg/dL) Calcium 8.5 L Phosphorus Alkaline Phosphatase Troponin I C-Reactive Protein Total Protein Albumin SARS-CoV-2 (PCR) - Diagnostic Findings Chest x-ray: image reviewed Assessment and Plan Plan: Acute hypotension, likely multifactorial. The patient underwent hemodialysis with ultrafiltration with total of 3 L and this contributed to hypotension in combination to possibly underlying infection/sepsis. She responded nicely to 500 mL bolus and the patient's blood pressures stabilized and she is not requiring any pressors at this point in time. End-stage renal disease on hemodialysis Chronic arterial and venous ulceration lower extremity bilaterally are various stages. Some of the ulcers are scabbed whereas others have drainage and cultures from one of the ones that showed VRE and the patient is currently on a combination of Rocephin and daptomycin Cellulitis of the lower extremities Covid 19 positive, no evidence of pneumonia Severe peripheral vascular disease with previous fem-pop bypass surgery Diabetes mellitus Hypertension Hyperlipidemia COPD Previous history of CVA/TIA Acute leukocytosis CHF with valvular heart disease and mitral regurgitation. Based on echocardi ogram from 2019, the patient ejection fraction of 3035% and mild mitral regurgitation was also present along with mild LVH. Carotid artery disease Plan Patient is currently on room air oxygen Monitor blood pressure No need for further fluids No need for pressors Continue Rocephin and daptomycin Vascular surgery and infectious disease regarding lower extremities Echocardiogram in a.m. to evaluate LV function We will follow
[2022-04-14 17:12] LABS: Glucose,Whole Blood 50 mg/dL (70-110)
[2022-04-14] MEDS ORDERED: DEXTROSE 50% SYRINGE 50 ML IVP ONE (17:18)
[2022-04-14] MEDS ORDERED: DEXTROSE 50% SYRINGE 50 ML IVP STA (17:20)
[2022-04-14 17:39] LABS: Glucose,Whole Blood 117 mg/dL (70-110)
[2022-04-14 19:55] LABS: Glucose,Whole Blood 107 mg/dL (70-110)
[2022-04-14 20:08] LABS: Glucose,Whole Blood 102 mg/dL (70-110)
--- NOTE | 2022-04-14 22:06 | P.PN ---
Subjective Progress Note Date: 04/13/22 Principal diagnosis: Covid 19 and left foot cellulitis Patient is a 51-year female with a past medical history difficult for end-stage renal disease on hemodialysis, congestive heart failure COPD hypertension diabetes mellitus peripheral vascular disease with femoropopliteal bypass, patient recently tested positive for covid19 initially on 03/28/2022, presented to hospital with left big toe discoloration and some erythema to the dorsum aspect of the left foot concerning for possible cellulitis. On today's evaluation that is 04/13/2022, the patient remains to be afebrile, the patient is breathing comfortably on room air, denies any chest pain or shortness with occasional cough no abdominal pain , denies any worsening pain to the lower extremity and foot area still have superficial wound and some drainage Objective - Vital Signs Vital signs: Vital Signs Temp 97.6 F 04/13/22 07:33 Pulse 61 04/13/22 12:37 Resp 18 04/13/22 12:37 BP 136/78 04/13/22 12:37 Pulse Ox 94 L 04/13/22 12:37 FiO2 Intake & Output 04/12/22 04/13/22 04/13/22 18:59 06:59 18:59 Weight 74.6 kg Other: # Voids 2 0 - Exam GENERAL DESCRIPTION: Middle-age female lying in bed in no distress RESPIRATORY SYSTEM: Unlabored breathing , decreased breath sounds at bases HEART: S1 S2 regular rate and rhythm , ABDOMEN: Soft , no tenderness EXTREMITIES: No edema feet - Labs CBC & Chem 7: 04/14/22 05:14 04/14/22 05:14 Labs: Abnormal Lab Results - Last 24 Hours (Table) 04/13/22 04/13/22 04/13/22 Range/Units 04:36 12:06 13:04 Creatinine 4.1 H (0.6-1.5) mg/dL Est GFR (CKD-EPI)AfAm 13.5 L (60.0-200.0) Est GFR (CKD-EPI)NonAf 11.7 L (60.0-200.0) POC Glucose (mg/dL) 118 H (70-110) mg/dL C-Reactive Protein 5.7 H (<1.0) mg/dL Microbiology - Last 24 Hours (Table) 04/11/22 08:21 Anaerobic Culture - Preliminary Leg - Left 04/11/22 08:21 Gram Stain - Preliminary Leg - Left Wound Culture - Preliminary Pantoea agglomerans 04/10/22 16:15 Blood Culture - Preliminary Blood No Growth after 48 hours 04/10/22 16:00 Blood Culture - Preliminary Blood No Growth after 24 hours Assessment and Plan (1) COVID-19 Current Visit: Yes Status: Acute Code(s): U07.1 - COVID-19 SNOMED Code(s): 343818231 (2) Cellulitis Current Visit: Yes Status: Acute Code(s): L03.90 - CELLULITIS, UNSPECIFIED SNOMED Code(s): 348285054 Plan: 1patient with a positive COVID test in this patient initially tested positive on 03/29/2022 that is more than 2 weeks ago patient currently not hypoxic chest x-ray negative for acute cardiopulmonary disease does not need any further treatment for this positive COVID test. 2patient with left big toe discoloration and some erythema to the dorsal aspect of the foot along with superficial ulceration and wound cultures are now growing VRE and Pantonea, we will discontinue vancomycin and start patient on daptomycin and Rocephin 2 g daily and monitor clinical course closely Time with Patient: Less than 30
[2022-04-15 04:01] LABS: Glucose,Whole Blood 68 mg/dL (70-110)
[2022-04-15] MEDS ORDERED: DEXTROSE 50% SYRINGE 50 ML IVP STA (04:01)
[2022-04-15 04:20] LABS: Glucose,Whole Blood 174 mg/dL (70-110)
--- NOTE | 2022-04-15 06:19 | PN ---
PROGRESS NOTE DATE OF SERVICE: 04/14/2022 SUBJECTIVE: This 51-year-old woman, who is admitted with bilateral leg cellulitis, also in renal failure, hemodialysis is being continued. The patient has some nausea and vomiting also. The white count is 17.7 up from 10.3. Cultures are noted. Wound culture showed Pantoea agglomerans and Enterococcus faecium VRE. The patient is on daptomycin currently. PAST MEDICAL HISTORY: Reviewed. REVIEW OF SYSTEMS: A 14-point review of systems is negative except as mentioned earlier. PHYSICAL EXAMINATION: VITAL SIGNS: Pulse is 53, blood pressure ntd respirations 17. HEENT: Conjunctivae normal. NECK: No JVD. CARDIOVASCULAR: S1, S2. RESPIRATION: Breath sounds diminished at the bases. ABDOMEN: Soft, nontender. LEGS: Bilateral leg cellulitis. NERVOUS SYSTEM: No focal deficits. LABORATORY DATA: Reviewed. ASSESSMENT: 1. Bilateral leg ulcers and slow improvement with Pantoea agglomerans and vancomycin- resistant Enterococci. 2. End-stage renal disease, on hemodialysis. 3. Acute gastritis. 4. Mild troponin elevation. 5. Diabetes mellitus type 2. 6. Hypertension. 7. Hyperlipidemia. 8. Multiple medical issues. RECOMMENDATIONS: I recommend to continue current management and symptomatic treatment. Continue with antibiotics with gram-negative coverage. Otherwise, continue the hemodialysis, symptomatic treatment. See orders for details. IV Protonix. Prognosis guarded. Further recommendations to follow. MMODL / IJN: [id number] / MTDD
[2022-04-15 06:28] LABS: Anisocytosis Slight; Basophils # (A) 0.1 k/uL (0-0.2); Basophils % (A) 1 %; Eosinophils # (A) 0.1 k/uL (0-0.7); Eosinophils % (A) 0 %; HCT 45.5 % (34.0-46.0); HGB 12.9 gm/dL (11.4-16.0); Hypochromasia Marked; Lymphocytes # (A) 1.6 k/uL (1.0-4.8); Lymphocytes % (A) 6 %; MCH 34.5 pg (25.0-35.0); MCHC 28.4 g/dL (31.0-37.0); MCV 121.5 fL (80.0-100.0); Macrocytosis Marked; Mean Platelet Volume 10.1; Monocytes # (A) 0.9 k/uL (0-1.0); Monocytes % (A) 4 %; Neutrophils # (A) 21.6 k/uL (1.3-7.7); Neutrophils % (A) 88 %; Platelet Count 146 k/uL (150-450); RBC 3.74 m/uL (3.80-5.40); RDW 18.2 % (11.5-15.5); WBC 24.6 k/uL (3.8-10.6)
[2022-04-15 06:41] LABS: Calcium 6.9 mg/dL (8.4-10.2)
[2022-04-15 06:46] LABS: Vancomycin,Random 12.2 ug/mL
[2022-04-15] MEDS ORDERED: propofoL 100 ML IV ONE (06:51)
[2022-04-15 07:00] LABS: Potassium 6.1 mmol/L (3.5-5.1)
[2022-04-15 07:06] LABS: Large Platelets Present; Polychromasia Present
--- NOTE | 2022-04-15 07:07 | P.EN ---
Code blue note please see paper charting for exact sequence of events and meds given patient went into respiratory arrest, CPR initiated per ACLS protocol. patient then lost pulse and had a PEA arrest, she required one round of CPR, she was given 1 epi and 1 amp of bicarb. intubation was successful. ROSC achieved, levophed initiated due to low BP, and patient is getting a 1 L bolus of normal saline. she has extensive PMHx , with ESRD and vascular ulceration over her lower extremities with cellulitis for which she has been admitted for IV antibiotics. her last HD was yesterday. patient started waking up , and propofol will be initiated. on exam patient unresponsive, intubated, vital s HR 60s, BP 154/95 lungs good breath sounds bilaterally , no rales, no wheezing abd soft patient right pupil is dilated not reactive to light, left pupil is about 3-4 mm round reactive to light follow up morning labs continue current antibiotics with daptomycin and rocephine per ID recs continue to monitor blood sugar (she had episodes of hypoglycemia earlier ) Total amount of critical care time spent was 35 minutes not counting procedures performed.
--- NOTE | 2022-04-15 07:08 | XR ---
EXAMINATION TYPE: XR chest 1V portable DATE OF EXAM: 04/15/2022 CLINICAL HISTORY: Difficulty breathing to be intubated. TECHNIQUE: Single AP portable semiupright view of the chest is obtained. COMPARISON: Chest x-ray from 5 days earlier FINDINGS: There is new endotracheal tube terminating at aortic knob level approximately 1 to 2 cm ab ove shreya. Consider retracting 2 cm to be more ideal position. There is new orogastric tube projecti ng below diaphragm. Stable right internal jugular dialysis catheter. New bilateral increased opacities and more focal lef t basilar opacity/consolidation. Diminished inspiration noted. Cardiomegaly redemonstrated. IMPRESSION: 1. New endotracheal tube and orogastric tubes are both satisfactory in position. Endotracheal tube sl ightly low lying, consider pulling back 2 cm. 2. Initial inspiration with new bilateral edema and/or infiltrates. More focal left basilar consolida tion noted. Persistent cardiomegaly. Correlate for fluid overload state or developing bilateral infec tion.
[2022-04-15] MEDS ORDERED: INSULIN REGULAR 100 UNIT/ML VIAL (IV) IV ONE (07:13)
[2022-04-15] MEDS ORDERED: SODIUM BICARB 8.4% 50 ML SYR (1 MEQ/ML) IV ONE (07:13)
[2022-04-15] MEDS ORDERED: DEXTROSE 50% SYRINGE 50 ML IVP ONE (07:13)
[2022-04-15 07:15] LABS: Glucose,Whole Blood 66 mg/dL (70-110)
[2022-04-15] MEDS ORDERED: DEXTROSE 5% IN WATER 1,000 ML with SODIUM BICARB (1 MEQ/ML) 150 ML IV SCH (07:15)
[2022-04-15 07:36] LABS: Glucose,Whole Blood 425 mg/dL (70-110)
[2022-04-15] MEDS ORDERED: SODIUM BICARB 8.4% 50 ML SYR (1 MEQ/ML) IV STA ×2 (07:42)
[2022-04-15 07:56] LABS: Glucose,Whole Blood 124 mg/dL (70-110)
--- NOTE | 2022-04-15 08:19 | P.EN ---
CODE BLUE Indication: PEA Arrived on Scene to find: Patient had obtained ROSC Initial Rhythm: PEA Code Course: EPI X1, Bicarb X 1 Initial code lasting 4 minutes inbetween codes bicarb X 1 additional Calcium X 1 additional Await ABG V tach at 0750, shock times X 1 with organized rhythm returned without pulse, epi X 1, Amio X 300, calcium X 1, bicarb X 1, epi X 1 BRB (Bright red blood) noted in ET tube, BRB noted in breif --suspect DIC Total Down Time for all 4 codes: 25 totall Time of deaht 0800 Vital signs reviewed Pupils fixed and dilated, absent breath sounds, absent cardiac actrivity Assessment: Cardiac Arrest Acidosis Plan: TIme of 0800 Notified: Dr Shai gibson of 3rd code and TONIE Henderson with [facility] presented to bedside notfied of she will contact guardian and son A Total of 45 minutes of critical care time was spent on the complex care of this patient.
[2022-04-15 08:40] VITALS: BP 114/74; PULSE 0; RESP 21
--- NOTE | 2022-04-16 03:23 | P.DS ---
Providers Date of admission: 04/10/22 20:49 Expected date of discharge: 04/15/22 Attending physician: Kassie Lindsey MD Consults: 04/10/22 20:47 Consult Physician Routine Consulting Provider: Norman Martell Consult Reason/Comments: covid, chronic/ cellulitis/stasis ulcer Do you want consulting provider notified?: Yes, Notify in am 04/10/22 20:49 Consult Physician Routine Consulting Provider: Paxton Hinds Consult Reason/Comments: esrd on HD, volume overload Do you want consulting provider notified?: Yes, Notify in am 04/10/22 20:50 Consult Physician Urgent Consulting Provider: Jose A Sheffield Consult Reason/Comments: PAD Do you want consulting provider notified?: Yes, Notify in am 04/14/22 13:50 Consult Physician Urgent Consulting Provider: Dustin Gibbons Consult Reason/Comments: hypotensive, sepsis, esrd Do you want consulting provider notified?: Yes Primary care physician: [facility] Course: Preliminary cause of Sepsis secondary to lower extremity cellulitis Final diagnosis Bilateral leg ulcers and slow improvement with Pantoea agglomerans and VRE End-stage renal disease, on hemodialysis Acute gastritis Mild troponin elevation The 80s mellitus type II, uncontrolled with hyper and hypoglycemia Hypertension Hyperlipidemia Congestive heart failure with systolic dysfunction Discharge disposition Patient has . According to nursing documentation time of was 0800 on 04/15/2022. Patient was put in the ICU as patient was hypotensive earlier postdialysis. Please refer to previous dictations for further HPI along with other consultations and CODE BLUE events. Hospital course This is a 51-year-old female who was admitted with bilateral lower extremity cellulitis also renal failure maintained on hemodialysis. Patient having some nausea and vomiting with elevated white blood count and culture showing VRE maintained on antibiotics. Patient had some decreased oral intake and episodes of hypoglycemia. Patient was an ateam on 04/14/2022 for hypotension and brought to the ICU for close monitoring for possible pressor support. Patient was given a gentle 500 mL bolus now requiring pressor support. Per nursing staff patient lost pulse and CODE BLUE was called 4 and having noted some rectal bleeding and intubated with bleeding noted in the ET tube is well. Patient with a public guardian and CODE STATUS was addressed after speaking with son making her no code and patient lost pulses again and patient ultimately . Concerns for DIC and sepsis. Please refer to previous documentations and even notes and other consultations for further HPI. Guardian was notified along with son and patient 0800 on 04/15/2022. The impression and plan of care has been dictated by Beatriz Lan, Nurse Practitioner as directed. Dr. Lenny MD I have performed a history and examination and MDM of this patient, discussed the same with the dictator, and agree with the dictator's assessment and plan as written ,documented as a scribe. Based on total visit time, I have performed more than 50% of the visit. Patient Condition at Discharge: Poor Plan - Discharge Summary Discharge Rx Participant: No New Discharge Prescriptions: No Action Atorvastatin [Lipitor] 80 mg PO HS Aspirin 81 mg PO DAILY 30 Days #30 chew Folic Acid 0.4 mg PO DAILY Ondansetron [Zofran ODT] 4 mg PO DAILY PRN PRN Reason: Nausea Albuterol Sulfate [Proair Hfa] 2 puff INHALATION RT-Q6H PRN PRN Reason: Shortness Of Breath Miriam-Thalia 1 tab PO DAILY Insulin Glargine,Hum.rec.anlog [Lantus Solostar Pen] 15 units SQ HS Furosemide [Lasix] 80 mg PO BID lisinopriL [Zestril] 2.5 mg PO DAILY Cholecalciferol [Vitamin D3 (25 Mcg = 1000 Iu)] 50 mcg PO DAILY Albuterol Nebulized [Ventolin Nebulized] 2.5 mg INHALATION RT-TID PRN PRN Reason: Shortness Of Breath Clopidogrel [Plavix] 75 mg PO DAILY #90 tab Metoprolol Succinate [Metoprolol Succinate ER] 25 mg PO DAILY hydrOXYzine HCL 25 mg PO TID PRN PRN Reason: Itching Lactulose 20 gm PO BID PRN PRN Reason: Constipation Insulin Lispro [humaLOG Kwikpen] See Protocol SQ AC-TID Insulin Lispro [humaLOG Kwikpen] 5 unit SQ AC-TID Ezetimibe [Zetia] 10 mg PO DAILY Calcium Acetate [Phoslo] 667 mg PO TID-W/MEALS Discharge Medication List Atorvastatin [Lipitor] 80 mg PO HS 06/30/17 [History] Aspirin 81 mg PO DAILY 30 Days #30 chew 04/21/20 [Rx] Albuterol Nebulized [Ventolin Nebulized] 2.5 mg INHALATION RT-TID PRN 02/13/21 [History] Folic Acid 0.4 mg PO DAILY 02/13/21 [History] Albuterol Sulfate [Proair Hfa] 2 puff INHALATION RT-Q6H PRN 01/13/22 [History] Ondansetron [Zofran ODT] 4 mg PO DAILY PRN 01/13/22 [History] Miriam-Thalia 1 tab PO DAILY 01/13/22 [History] Clopidogrel [Plavix] 75 mg PO DAILY #90 tab 01/15/22 [Rx] Calcium Acetate [Phoslo] 667 mg PO TID-W/MEALS 03/28/22 [History] Cholecalciferol [Vitamin D3 (25 Mcg = 1000 Iu)] 50 mcg PO DAILY 03/28/22 [History] Ezetimibe [Zetia] 10 mg PO DAILY 03/28/22 [History] Furosemide [Lasix] 80 mg PO BID 03/28/22 [History] Insulin Glargine,Hum.rec.anlog [Lantus Solostar Pen] 15 units SQ HS 03/28/22 [History] Insulin Lispro [humaLOG Kwikpen] 5 unit SQ AC-TID 03/28/22 [History] Insulin Lispro [humaLOG Kwikpen] See Protocol SQ AC-TID 03/28/22 [History] Lactulose 20 gm PO BID PRN 03/28/22 [History] Metoprolol Succinate [Metoprolol Succinate ER] 25 mg PO DAILY 03/28/22 [History] hydrOXYzine HCL 25 mg PO TID PRN 03/28/22 [History] lisinopriL [Zestril] 2.5 mg PO DAILY 03/28/22 [History] Follow up Appointment(s)/Referral(s): Catalina Vivas MD [Primary Care Provider] - 1-2 days Discharge Disposition: - Preliminary Cause of Preliminary Cause of : Sepsis secondary to bilateral lower extremity cellulitis
== END 2022-04-15 12:45 | disposition expired | DRG 871 ==
LOC: EC 15:10 → 3SCARD 20:49 → 4SSUR 04-11 14:20 → 2SICU 04-14 14:10
PROVIDERS: ADMIT Internal Medicine; ATTEND Internal Medicine
PROC: 5A1D70Z Performance of Urinary Filtration, Intermittent, Less than 6 Hours Per Day (ICD-10-PCS; 2022-04-11)
PROC: 5A12012 Performance of Cardiac Output, Single, Manual (ICD-10-PCS; principal; 2022-04-15)
PROC: 3E033XZ Introduction of Vasopressor into Peripheral Vein, Percutaneous Approach (ICD-10-PCS; principal; 2022-04-15)
PROC: 5A1935Z Respiratory Ventilation, Less than 24 Consecutive Hours (ICD-10-PCS; principal; 2022-04-15)
PROC: 0BH17EZ Insertion of Endotracheal Airway into Trachea, Via Natural or Artificial Opening (ICD-10-PCS; principal; 2022-04-15)
DX: A41.81 Sepsis due to Enterococcus (principal); D65 Disseminated intravascular coagulation [defibrination syndrome]; N18.6 End stage renal disease; U07.1 COVID-19; L03.116 Cellulitis of left lower limb; L03.115 Cellulitis of right lower limb; Z16.21 Resistance to vancomycin; E87.20 Acidosis, unspecified; I13.2 Hypertensive heart and chronic kidney disease with heart failure and with stage 5 chronic kidney disease, or end stage renal disease; I47.20 Ventricular tachycardia, unspecified; I50.22 Chronic systolic (congestive) heart failure; L97.919 Non-pressure chronic ulcer of unspecified part of right lower leg with unspecified severity; L97.929 Non-pressure chronic ulcer of unspecified part of left lower leg with unspecified severity; K62.5 Hemorrhage of anus and rectum; R65.20 Severe sepsis without septic shock; E11.22 Type 2 diabetes mellitus with diabetic chronic kidney disease; E83.9 Disorder of mineral metabolism, unspecified; E11.51 Type 2 diabetes mellitus with diabetic peripheral angiopathy without gangrene; Z66 Do not resuscitate; J44.9 Chronic obstructive pulmonary disease, unspecified; I46.9 Cardiac arrest, cause unspecified; L52 Erythema nodosum; F32.A Depression, unspecified; Z99.2 Dependence on renal dialysis; I95.9 Hypotension, unspecified; E11.649 Type 2 diabetes mellitus with hypoglycemia without coma; I70.239 Atherosclerosis of native arteries of right leg with ulceration of unspecified site; I70.249 Atherosclerosis of native arteries of left leg with ulceration of unspecified site; I34.0 Nonrheumatic mitral (valve) insufficiency; G89.29 Other chronic pain; E78.5 Hyperlipidemia, unspecified; F41.9 Anxiety disorder, unspecified; F17.210 Nicotine dependence, cigarettes, uncomplicated; I87.2 Venous insufficiency (chronic) (peripheral); Z86.73 Personal history of transient ischemic attack (TIA), and cerebral infarction without residual deficits; Z95.5 Presence of coronary angioplasty implant and graft; K29.00 Acute gastritis without bleeding; Z91.81 History of falling; Z20.822 Contact with and (suspected) exposure to COVID-19; Z79.02 Long term (current) use of antithrombotics/antiplatelets; Z79.4 Long term (current) use of insulin; Z79.82 Long term (current) use of aspirin; Z79.899 Other long term (current) drug therapy; Z82.49 Family history of ischemic heart disease and other diseases of the circulatory system; Z83.3 Family history of diabetes mellitus; Z88.0 Allergy status to penicillin; Z91.030 Bee allergy status
CPT/HCPCS: 36415; 71045; 71046; 73521; 80048; 80053; 80202; 82150; 82550; 82565; 83690; 83735; 83880; 84100; 84484; 85025; 85610; 85652; 85730; 86140; 87040; 87070; 87075; 87077; 87186; 87205; 87636; 90935; 93005; 93970; 94002; 94640; 96365; 96366; 96367; 96375; 96376; 99285